=== PATIENT | female | born 2000 | race Caucasian/White ===

== ENCOUNTER 2024-11-16 22:26 | Inpatient (IN) | payer MEDICAID, SELFPAY ==
--- OUTSIDE RECORDS SUMMARY | 2024-11-16 22:12 | XMS RPT_ITS | CCD ---
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 Comment on above: Order Comment: Speci men Type: SWAB Ordering Facility: [facility] Address: [address] [place] [address] Performed By: #### T RVAMP, 20774-7 #### [facility] CLIA [id number] [address] [place] [address] [place] WBC (Bld) [#/Vol] 6.90 10*3/uL Normal 3.70-11.00 [facility] Comment on above: Order Comment: Speci men Type: SWAB Ordering Facility: [facility] Address: [address] [place] [address] Performed By: #### T RVAMP, 79018-6 #### [facility] CLIA [id number] [address] [place] [address] [place] Scott 05-15-2024 CNPN Telephone (OBGYWM) WALTER ANDRADE ([id number]) 2000 F Date Time Provider Department 05/15/24 THEODORA DELUCA OBGYWSpencer During your visit today, we recorded the following information about you: Laurie Bueno RN 05/15/2024 11:56 AM Signed Patient 12w6d, here today for NT ultrasound and is asking for blood work to be added for [id number]. Order pended. ALEXEY Arora Karmon, MD 05/15/2024 11:58 AM Signed Filed Theodora Deluca MD Allergies As of Date: 05/15/2024 (No Known Allergies) Date Reviewed: 04/24/2024 Reviewed by: Dina Sanchez APRN.COOKER SULFITE - Fully Assessed Reason for Visit: Orders [681] Primary Visit Diagnosis:Supervision of high risk , antepartum [O09.90] Other Visit Diagnosis:BMI 40.0-44.9, adult (HCC) [Z68.41] Order(s):[id number] PLUS [SQMAT21] Order #: [id number] FUTURE Prescriptions as of 05/15/2024 - aspirin, enteric coated (ECOTRIN LOW STRENGTH) 81 mg EC tablet Take 1 tablet by mouth once daily. - PNV no.95/ferrous fum/folic ac ( ORAL) Take by mouth. - vit37/iron/folic acid (PRENATA ORAL) Take 1 tablet by mouth once daily. - levothyroxine (LEVO-T) 175 mcg tablet Take 175 mcg by mouth daily before breakfast. - cholecalciferol, vitamin D3, (VITAMIN D3 ORAL) Take 75 mcg by mouth once daily. - Cyanocobalamin (VITAMIN B-12) 2,000 mcg TbER Take 1 tablet by mouth once daily. Problem List As Of Date 05/15/2024 Noted Resolved Hypothyroidism [E03.9] PCOS (polycystic ovarian syndrome) [E28.2] Supervision of high risk , antepartum *04/24/2024 BMI 40.0-44.9, adult (HCC) [Z68.41] 04/24/2024 Anxiety [F41.9] 03/24/2020 High serum testosterone [R79.89] 10/20/2015 Encounter Status:Closed by JENAN HANDY on 05/15/24 Normal [facility] Examination level ultrasound on 05-15-2024 Indication First trimester anatomic survey, Maternal obesity, BMI >40 Impression The patient is referred for a first trimester anatomy scan including nuchal translucency measurement as clinically indicated. - Single, live, intrauterine . - Apison rump length measurement is consistent with the established gestational age. - A qualitative screen of the nuchal translucency and other anatomic structures was unremarkable on incomplete first trimester anatomic assessment. - Not all structural malformations can be detected by ultrasound examination. Maternal Structures: Right Ovary: Size 36 mm x 26 mm x 18 mm Left Ovary: Size 32 mm x 22 mm x 16 mm Recommendations - A standard anatomic survey at 16 weeks can be offered and a detailed exam at 20 weeks is recommended for increased risk. Maternal Assessment Height 163 cm Height (ft) 5 ft Height (in) 4 in Physical Exam Initial weight (lb) 252 lb Initial BMI 43.26 kg/m Method Transabdominal and transvaginal ultrasound examination, 3D ultrasound examination. View: Suboptimal view: limited by maternal body habitus. Suboptimal view: limited by position Davila . Number of fetuses: 1 Dating GA by prior assessment 12 w + 6 d GASPER by prior assessment: 11/21/2024 Ultrasound examination on: 05/15/2024 GA by U/S based upon: CRL GA by U/S 13 w + 3 d GASPER by U/S: 11/17/2024 Assigned: based on ultrasound (CRL), selected on 04/24/2024 Assigned GA 12 w + 6 d Assigned GASPER: 11/21/2024 General Evaluation Cardiac activity present Placenta: anterior Cord vessels: 3 vessel cord Amniotic fluid: normal amount Biometry Standard FHR 167 bpm CRL 73.8 mm 13w 3d 85% [facility]lock First Trimester Anatomy Calvarium: normal Falx cerebri: normal Choroid plexus: normal Profile: suboptimal Nasal bone: suboptimal Retronasal triangle: normal Maxilla: normal Mandible: normal Nuchal translucency: Unremarkable Situs: normal Cardiac position: normal Cardiac axis: normal 4-chamber view: suboptimal 4-chamber view with color: suboptimal 8-[id number]-[id number] view: suboptimal Abdominal cord insertion: normal Stomach: normal Kidneys: visualized Bladder: normal Color doppler of perivesical umbilical arteries: normal Vertebral alignment: normal Arms: normal Hands: normal Legs: normal Feet: normal Maternal Structures Uterus / Cervix Uterus: Visualized Uterus length 143 mm Uterus width 114 mm Uterus height 75 mm Uterus Vol 638.9 cm Ovaries / Tubes / Adnexa Rt ovary: Visualized Rt ovary D1 36 mm Rt ovary D2 26 mm Rt ovary D3 18 mm Rt ovary Vol 8.6 cm Rt ovarian corpus luteum: cystic with fine diffuse internal echoes Lt ovary: Visualized Lt ovary D1 32 mm Lt ovary D2 22 mm Lt ovary D3 16 mm Lt ovary Vol 6.1 cm Performed By: Ximena Montoya RDMS Read By: Sakina Bernstein M.D. MATERNAL MEDICINE [facility] Radiology Study observation (narrative) [facility] HBV surface Ag Ser Qlon 03-0 HBV surface Ag Ql (S) Negative Normal Negative [facility] Comment on above: Order Comment: Speci men Type: SWAB Ordering Facility: [facility] Address: [address] [place] [address] Performed By: #### T AMBREEN, 82990-8 #### [facility] CLIA [id number] [address] [place] [address] [place] HCV Ab Ser Qlon 05-15-2024 HCV Ab Ql (S) Negative Normal Negative [facility] Comment on above: Order Comment: Speci men Type: BLOOD SPECIMENOrdering Facility: [facility] Address: [address] [place] [address] Result Comment: The result suggests no evidence of active infection with Hepatitis C virus. Should recent infection be suspected, repeat testing may be considered 4-6 weeks after this draw. Performed By: #### 1 6128-1 ####[facility] [id number] [place] [address] [place] HIV 1+2 Ab IA Qlon HIV 1 and 2 Ab IA.rapid Nom (S/P/Bld) Normal [facility] Comment on above: Order Comment: Speci men Type: SWAB Ordering Facility: [facility] Address: [address] [place] [address] Result Comment: Test not indicated. Performed By: #### Elmer CROOK, 49731-9 #### [facility] CLIA [id number] [address] [place] [address] [place] HIV 1+2 Ab+HIV1 p24 Ag IA Ql Non-Reactive Normal Nonreactive [facility] Comment on above: Order Comment: Speci men Type: SWAB Ordering Facility: [facility] Address: [address] [place] [address] Performed By: #### T AMBREEN, 97960-3 #### [facility] CLIA [id number] [address] [place] [address] [place] HIV immunoassay testing algorithm interpretation (S/P/Bld) [Interp] Normal [facility] Comment on above: Order Comment: Speci men Type: SWAB Ordering Facility: [facility] Address: [address] [place] [address] Result Comment: No e vidence of HIV-1 or HIV-2 infection. Should recent infection be suspected, repeat testing may be considered 2-3 weeks after this draw. [place] Rev. Code 3701.243(E): This information has been disclosed to you from confidential records protected from disclosure by state law. ???You shall make no further disclosure of this information without the specific, written, and informed release of the individual to whom it pertains or as otherwise permitted by state law. A general authorization for the release of medical or other information is not sufficient for the purpose of the release of HIV test results or diagnoses. Performed By: #### T RVAMP, 11746-7 #### [facility] CLIA [id number] [address] [place], [place] [address] [address] [place] HbA1c (Bld)on 05-15-2024 Average glucose Estimated from glycated hemoglobin (Bld) [Mass/Vol] 94 mg/dL Normal [facility] Comment on above: Order Comment: Speci men Type: BLOOD SPECIMENOrdering Facility: [facility] Address: [address] [place] [address] Result Comment: eAG: (Estimated average glucose) is a calculated value from HgbA1c and is parts representative of the average blood glucose level in the last 2-3 month period. Performed By: #### 5 5454-3 ####[facility] [id number] [place] [address] [place] HbA1c (Bld) [Mass fraction] 4.9 % Normal 4.3-5.6 [facility] Comment on above: Order Comment: Speci men Type: BLOOD SPECIMENOrdering Facility: [facility] Address: [address] [place] [address] Result Comment: Amer [place] Diabetes Association guidelines indicate that patients with HgbA1c in the range 5.7-6.4% are at increased risk for development of diabetes, and intervention by lifestyle modification may be beneficial. HgbA1c greater or equal to 6.5% is considered diagnostic of diabetes. Performed By: #### 5 5454-3 ####[facility] [id number] [place] [address] [place] [id number] PLUSon 05-15-2024 Cell-free DNA./Cell-free DNA.total Dosage of chromosome-specific cfDNA (cfDNA) [Molar fraction] 13% Normal [facility] Comment on above: Order Comment: Speci men Type: SWAB Ordering Facility: [facility] Address: [address] [place] [address] Performed By: #### T RVAMP, 23375-4 #### [facility] CLIA [id number] [address] [place] [address] [place] Chr 13+18+21+X+Y aneuploidy Dosage of chromosome-specific cfDNA Ql (cfDNA) Negative Normal [facility] Comment on above: Order Comment: Speci men Type: SWAB Ordering Facility: [facility] Address: [address] [place] [address] Performed By: #### T RVAMP, 22200-1 #### [facility] CLIA [id number] [address] [place] [address] [place] Chr 21 trisomy Dosage of chromosome-specific cfDNA Ql (cfDNA) Negative Normal [facility] Comment on above: Order Comment: Speci men Type: SWAB Ordering Facility: [facility] Address: [address] [place] [address] Performed By: #### T RVAMP, 25154-2 #### [facility] CLIA [id number] [address] [place] [address] [place] Chr X and Y aneuploidy risk Sequencing Ql (cfDNA) [Interp] Not detected Normal [facility] Comment on above: Order Comment: Speci men Type: SWAB Ordering Facility: [facility] Address: [address] [place] [address] Result Comment: Not Detected Not Detected Performed By: #### T RVAMP, 34335-8 #### [facility] CLIA [id number] [address] [place] [address] [place] Citation Rigoberto (Reference lab test) Comment Normal [facility] Comment on above: Order Comment: Speci men Type: SWAB Ordering Facility: [facility] Address: [address] [place] [address] Result Comment: 1. P cruz ASIF, et al. Eunice Med. 2012;14(3):296-305. 2. Angela IRWIN et al. Prenat Diag. 2013;33(6):591-597. 3. Pavel C, et al. Clin Chem. 2015 Apr;61(4):608-616. 4. Cherie ASIF, et al. Eunice Med. 2011;13(11):913-920. 5. ACOG/SMFM Practice Bulletin No. 226, Dec 2019. Performed By: #### T RVAMP, 12643-8 #### [facility] CLIA [id number] [address] [place] [address] [place] Gestational age Estimated from conception date Davila Normal [facility] Comment on above: Order Comment: Speci men Type: SWAB Ordering Facility: [facility] Address: [address] [place] [address] Performed By: #### T RVAMP, 00677-9 #### [facility] CLIA [id number] [address] [place] [address] [place] GESTATIONALAGE AGE > OR = 9W Yes Normal [facility] Comment on above: Order Comment: Speci men Type: SWAB Ordering Facility: [facility] Address: [address] [place] [address] Performed By: #### T RVAMP, 16492-5 #### [facility] CLIA [id number] [address] [place] [address] [place] Laboratory comment Rigoberto (Report) Comment Normal [facility] Comment on above: Order Comment: Speci men Type: SWAB [facility] [facility] Address: [address] [place] [address] Result Comment: The MaterniT(R) 21 PLUS laboratory-developed test (LDT) analyzes circulating cell-free DNA from a maternal blood sample. This test is used for screening purposes and not diagnostic. Clinical correlation is recommended. Validation data on twin pregnancies is limited and the ability of this test to detect aneuploidy in higher multiple gestations has not yet been validated. Performed By: #### T RVAMP, 03726-1 #### [facility] CLIA [id number] [address] [place] [address] [place] women's ministry director name Nom (Provider) Comment Normal [facility] Comment on above: Order Comment: German bhardwaj Type: SWAB Ordering Facility: [facility] Address: [address] [place] [address] Result Comment: This specimen showed an expected representation of chromosome 21, 18 and 13 material. Clinical correlation is suggested. Comment Tal Jean Baptiste MD, PhD, Director, [email or web address] Performed By: #### T RVAMP, 43559-5 #### [facility] CLIA [id number] [address] [place] [address] [place] LIMITATIONS OF THE TEST Comment Normal [facility] Comment on above: Order Comment: German bhardwaj Type: SWAB Ordering Facility: [facility] Address: [address] [place] [address] Result Comment: Deejay ying the results of these tests are highly reliable, discordant results, including inaccurate sex prediction, may occur due to placental, maternal, or mosaicism or neoplasm; vanishing twin; prior maternal organ transplant; or other causes. These tests are screening tests and not diagnostic; they do not replace the accuracy and precision of diagnosis with CVS or amniocentesis. A patient with a positive test result should be referred for genetic counseling and offered invasive diagnosis for confirmation of test results.[5] The results of this testing, including the benefits and limitations, should be discussed with a qualified healthcare provider. management decisions, including termination of the , should not be based on the results of these tests alone. The healthcare provider is responsible for the use of this information in the management of their patient. Sex chromosomal aneuploidies are not reportable for known multiple gestations. A negative result does not ensure an unaffected nor does it exclude the possibility of other chromosomal abnormalities or defects which are not a part of these tests. An uninformative result may be reported, the causes of which may include, but are not limited to, insufficient sequencing coverage, noise or artifacts in the region, amplification or sequencing bias, or insufficient fraction. These tests are not intended to identify pregnancies at risk for neural tube defects or ventral wall defects. Testing for whole chromosome abnormalities (including sex chromosomes) and for subchromosomal abnormalities could lead to the potential discovery of both and maternal genomic abnormalities that could have major, minor, or no, clinical significance. Evaluating the significance of a positive or a non-reportable result may involve both invasive testing and additional studies on the mother. Such investigations may lead to a diagnosis of maternal chromosomal or subchromosomal abnormalities, which on occasion may be associated with benign or malignant maternal neoplasms. These tests may not accurately identify triploidy, balanced rearrangements, or the precise location of subchromosomal duplications or deletions; these may be detected by diagnosis with CVS or amniocentesis. The ability to report results may be impacted by maternal BMI, maternal weight, maternal systemic lupus erythematosus (SLE) and/or by certain pharmaceutical agents such as low molecular weight heparin (for example: Lovenox(R), Xaparin(R), Clexane(R) and Fragmin(R)). Performed By: #### T RVAMP, 89138-4 #### [facility] CLIA [id number] [address] [place] [address] STATES OF [facility] Monosomy X risk Dosage of chromosome-specific cfDNA Ql (Plasma cell-free+WBC DNA) [Interp] Not detected Normal [facility] Comment on above: Order Comment: Speci men Type: SWAB Ordering Facility: [facility] Address: [address] [place] [address] Performed By: #### T RVAMP, 17639-4 #### [facility] CLIA [id number] [address] [place] [address] [place] NEGATIVE PREDICTIVE VALUE Note Normal [facility] Comment on above: Order Comment: German bhardwaj Type: SWAB Ordering Facility: [facility] Address: [address] [place] [address] Result Comment: The Negative Predictive Value (NPV) for trisomy 21, 18, and 13 is greater than 99%. The NPV for SCA and ESS cannot be calculated as SCA and ESS are only reported when an abnormality is detected. Performed By: #### T RVAMP, 02611-4 #### [facility] CLIA [id number] [address] [place] [address] [id number] PERFORMANCE CHARACTERISTICS Note Normal [facility] Comment on above: Order Comment: German bhardwaj Type: SWAB Ordering Facility: [facility] Address: [address] [place] [address] Result Comment: ! Sex ! Accuracy: 99.4% ! ! ! ! Region (associated syndrome) ! Est. Sens# ! Est. Spec ! ! ! ! Trisomy 21 (Down Syndrome) ! 99.1% ! 99.9% ! ! ! ! Trisomy 18 (Campa Syndrome) ! >99.9% ! 99.6% ! ! ! ! Trisomy 13 (P[place]u Syndrome) ! 91.7% ! 99.7% ! ! ! ! Sex Chromosome Aneuploidies## ! 96.2% ! 99.7% ! ! ! * As reported in [facility] database nstd37 [https://www.ncbi.nlm.nih.gov/dbvar/studies/nstd37/ ] # Estimated Sensitivity. Sensitivity estimated across the observed size distribution of each syndrome [per [facility] database nstd37] and across the range of fractions observed in routine clinical NIPT. Actual sensitivity can also be influenced by other factors such as the size of the event, total sequence counts, amplification bias, or sequence bias. ## Davila gestation only. Performed By: #### T CODIEAMP, 62418-0 #### [facility] CLIA [id number] [address] [place] [address] [place] POSITIVE PREDICTIVE VALUE N/A Normal [facility] Comment on above: Order Comment: Speci men Type: SWAB Ordering Facility: [facility] Address: [address] [place] [address] Performed By: #### T RVAMP, 16848-4 #### [facility] CLIA [id number] [address] [place] [address] [place] Reference Lab Test Method Comment Normal [facility] Comment on above: Order Comment: Speci men Type: SWAB Ordering Facility: [facility] Address: [address] [place] [address] Result Comment: See Notes Circulating cell-free DNA was purified from the plasma component of maternal blood. The extracted DNA was then converted into a genomic DNA library for aneuploidy analysis of chromosomes 21, 18, and 13 via next generation sequencing.[1] Optional findings based on the test order include sex chromosome aneuploidy (SCA)[2], and enhanced sequencing series (ESS)[3], which will only be reported on as an additional finding when an abnormality is detected. SCA testing includes information on X and Y representation, while ESS testing includes deletions in selected regions (22q, 15q, 11q, 8q, 5p, 4p, 1p) and trisomy of chromosomes 16 and 22. Performed By: #### T AMBREEN, 77773-2 #### [facility] CLIA [id number] [address] [place] [address] [place] Service comment (Unsp spec) [Interp] Comment Normal [facility] Comment on above: Order Comment: Speci men Type: SWAB Ordering Facility: [facility] Address: [address] [place] [address] Result Comment: See Notes [employer] is a subsidiary of [employer], using the brand [employer]. This test was developed and its performance characteristics determined by [employer]. It has not been cleared or approved by the Food and Drug Administration. This laboratory is certified under the Clinical Laboratory Improvement Amendments (CLIA) as qualified to perform high complexity clinical laboratory testing and accredited by the College [employer] (CAP). If there is future clinical need for adding MaterniT GENOME testing, this specimen will be available until term. [facility] samples will not be retained beyond 60 days. [facility] patients will have to send a new sample for re-sequencing ([facility] Test Code: [id number]). Performed By: #### T AMBREEN, 87290-0 #### [facility] CLIA [id number] [address] [place] [address] [place] Sex Dosage of chromosome-specific cfDNA Nom (cfDNA) Comment Normal [facility] Comment on above: Order Comment: Speci men Type: SWAB Ordering Facility: [facility] Address: [address] [place] [address] Result Comment: Cons istent with Male Performed By: #### T RVAMP, 18894-2 #### [facility] CLIA [id number] [address] [place] [address] [place] Test performance information Rigoberto (Unsp spec) Comment Normal [facility] Comment on above: Order Comment: Speci men Type: SWAB Ordering Facility: [facility] Address: [address] [place] [address] Result Comment: The performance characteristics of the MaterniT(R) 21 PLUS laboratory-developed test (LDT) have been determined in a clinical validation study with women at increased risk for chromosomal aneuploidy.[1-4] Performed By: #### T RVAMP, 73933-7 #### [facility] CLIA [id number] [address] [place] [address] [place] Trisomy 13 risk Dosage of chromosome-specific cfDNA Ql (cfDNA) [Interp] Negative Normal [facility] Comment on above: Order Comment: Speci men Type: SWAB Ordering Facility: [facility] Address: [address] [place] [address] Performed By: #### T RVAMP, 27128-5 #### [facility] CLIA [id number] [address] [place] [address] [place] Trisomy 18 risk Dosage of chromosome-specific cfDNA Ql (Plasma cell-free+WBC DNA) [Interp] Negative Normal [facility] Comment on above: Order Comment: Speci men Type: SWAB Ordering Facility: [facility] Address: [address] [place] [address] Performed By: #### T RVAMP, 59091-5 #### [facility] CLIA [id number] [address] [place] [address] [place] RUBELLA IGG ANTIBODYon 05-15 RUBELLA IGG AB, QUAL Positive Normal Positive [facility] Comment on above: Order Comment: Speci men Type: BLOOD SPECIMENOrdering Facility: [facility] Address: [address] [place] [address] Result Comment: The result suggests recent or past exposure to Rubella virus or history of Rubella vaccination. Positive result may also be seen due to presence of passively-transferred antibodies. Please correlate with patient's history. Performed By: #### R UBIGG ####[facility] [id number] [place] [address] [place] Reagin and Treponema pallidu m IgG and IgM [Interp]on 05-15-2024 T. pallidum IgG+IgM IA Ql (S) Non-Reactive Normal Nonreactive [facility] Comment on above: Order Comment: Speci men Type: SWAB Ordering Facility: [facility] Address: [address] [place] [address] Performed By: #### T RVAMP, 01503-5 #### [facility] CLIA [id number] [address] [place] [address] [place] Reagin+T pallidum IgG+IgM Se rPl-Impon 05-15-2024 Reagin and Treponema pallidum IgG and IgM [Interp] Cannot exclude recent Treponemal infection if specimen collected within 7-10 days after appearance of suspect lesions or 2-3 weeks after an exposure. Clinical correlation is required. Normal [facility] Comment on above: Order Comment: Speci men Type: SWAB Ordering Facility: [facility] Address: [address] [place] [address] Performed By: #### T RVAMP, 38292-5 #### [facility] CLIA [id number] [address] [place] [address] [place] TSH SerPl-aCncon 05-15-2024 TSH Qn 5.060 m[IU]/L High 0.270-4.200 [facility] Comment on above: Order Comment: Speci men Type: BLOOD SPECIMENOrdering Facility: [facility] Address: [address] [place] [address] Result Comment: If t he patient is , TSH reference range varies by gestational period: First Trimester (weeks 9-12): 0.180-2.990 mIU/L Second Trimester: 0.110-3.980 mIU/L Third Trimester: 0.480-4.710 mIU/L Colby Adame et al. A Practical Approach for the Verifications and Determination of Site- and Trimester-Specific Reference Intervals for Thyroid Function tests in . Thyroid, 2019:29:3:412-420. Ray Ying, et al. 2017 Guidelines of the [place] Thyroid Association for the Diagnosis and Management of Thyroid Disease during and the . Thyroid, 2017:27:3:315-389. Performed By: #### 3 016-3 ####[facility] [id number] [place] [address] [place] TYPE + SCREEN PRENATALon ABO A Normal [facility] Comment on above: Order Comment: Speci men Type: BLOOD SPECIMENOrdering Facility: [facility] Address: [address] [place] [address] Performed By: #### T SPN ####[facility]ANKCLIA [id number] [place] [address] [place] Rh Nom (Bld) Negative Normal [facility] Comment on above: Order Comment: Speci lashae Type: BLOOD SPECIMENOrdering Facility: [facility] Address: [address] [place] [address] Performed By: #### T SPN ####[facility] BANKCLIA [id number] [place] [id number] [place] TYPE AND SCREEN EXPIRATION 05/18/2024 23:59 Normal [facility] Comment on above: Order Comment: Speci men Type: BLOOD SPECIMENOrdering Facility: [facility] Address: [address] [place] [address] Performed By: #### T SPN ####[facility] BLOOD BANKCLIA [id number] [place] [address] [place] Bacteria Ur Culton Bacteria identified Cx Nom (U) ORGANISM ID: 1 10,000 -<50,000 CFU/ml Normal urogenital isamar Streptococcus agalactiae (Group B streptococcus) was identified in this specimen, which is clinically relevant if the individual is . v Normal [facility] Comment on above: Performed By: #### 6 30-4 ####[facility] [id number] [address] [place] C. trachomatis+N. gonorrhoea e DNA VISHNU+probe Ql (Unsp spec)on 04-24-2024 C. trachomatis rRNA VISHNU+probe Ql (Unsp spec) Not detected Normal Not detected [facility] Comment on above: Order Comment: Speci men Type: SWAB Ordering Facility: [facility] Address: [address] [place] [address] Performed By: #### T RVAMP, 40640-2 #### [facility] CLIA [id number] [address] [place] [address] N. gonorrhoeae rRNA VISHNU+probe Ql (Unsp spec) Not detected Normal Not detected [facility] Comment on above: Order Comment: Speci men Type: SWAB Ordering Facility: [facility] Address: [address] [place] [address] Performed By: #### T RVAMP, 35241-8 #### [facility] CLIA [id number] [address] [place] [address] [place] POC MANAGEMENT ACCOUNTS MANAGER ULTRASOUNDon 04-24-19 Indication Confirmation of intrauterine . Confirmation of cardiac activity. Estimation of gestational age Impression cardiac activity is visualized, Uncertain LMP, GASPER 11/21/24 based on today's ultrasound Recommendations Follow up for 1st Trimester Anatomy with Nuchal Translucency as clinically indicated if desired. Method Transvaginal ultrasound examination. View: Adequate visualization Davila . Number of embryos: 1 Dating Ultrasound examination on: 04/24/2024 GA by U/S based upon: CRL GA by U/S 9 w + 6 d GASPER by U/S: 11/21/2024 Assigned: based on ultrasound (CRL), selected on 04/24/2024 Assigned GA 9 w + 6 d Assigned GASPER: 11/21/2024 Biometry Standard FHR 167 bpm CRL 30.0 mm 9w 6d 37% Hadlock Assessment Gestational sac: visualized Location: intrauterine Yolk sac: visualized Embryo: visualized CRL 30.0 mm 9w 6d 37% Hadlock Cardiac activity: present FHR 167 bpm Maternal Structures BMI 42 General Evaluation Cardiac activity present. FHR 167 bpm. movements: present Performed By: Dina Sanchez CNP Read By: Dina Sanchez CNP MATERNAL MEDICINE [facility] Radiology Study observation (narrative) [facility] TRICHOMONAS VAGINALIS NAATon 04-24-2024 T. vaginalis DNA VISHNU+probe Ql (Unsp spec) Not detected Normal Not detected [facility] Comment on above: Order Comment: Speci men Type: SWAB Ordering Facility: [facility] Address: [address] [place] [address] Performed By: #### T RVAMP, 51732-7 #### [facility] CLIA [id number] [address] [place] [address] [place] [address] [place] Telephone Encounteron 2024 [employer] Authentication Interface Message Text See 04/07 mychart encounter regarding this. Normal [facility] [employer] [facility] Telephone Encounteron 2024 Part Maker Authentication Interface Message Text See sep msg Normal [facility] [employer] Telephone Encounteron 2024 Part Maker Authentication Interface Message Text Patient was identified by name and date of . Abigail June RN Called patient and relayed message. Patient states she takes a multivitamin at the same time as the synthroid. Hasn't missed any doses that she knows of. Waits 1.5 to 2 hours to eat after taking the synthroid. She is wondering if taking the multivitamin at the same time as the synthroid could have raised the level. Normal [facility] [employer] Telephone Encounteron 2024 Part Maker Authentication Interface Message Text Attempted to call patient at listed number. Mailbox is full and cannot accept any messages at this time. Normal [facility] [employer] [facility] Telephone Encounteron 2024 Part Maker Authentication Interface Message Text Pt did not access [employer] message/ results/ please call TSH (thryoid function) 8.163 ASSUMING NO MISSED DOSES X 6W THEN -your dose needs to be INCREASED; current levothyroxine (SYNTHROID) 150 MCG new 175 mcg : rx sent ; recheck labs due in 6+ wks Adore Morales MD Written by Adore Morales MD on 03/24/2024 10:57 AM EST Normal [facility] [employer] [facility] Addendum Noteon 03-24-2024 [employer] Authentication Interface Message Text Addended by: ADORE MORALES on: 03/24/2024 10:57 AM Modules accepted: Orders Normal [facility] Progress Noteson 03-24-2024 [employer] Authentication Interface Message Text TSH (thryoid function) 8.163 ASSUMING NO MISSED DOSES X 6W THEN -your dose needs to be INCREASED; current levothyroxine (SYNTHROID) 150 MCG new 175 mcg : rx sent ; recheck labs due in 6+ wks Adore Morales MD Normal [facility] Patient Instructionson 03-23 Part Maker Authentication Interface Message Text Start vitamin Continue to avoid all inhaled produces OB appt soon : ideal around 10-12 wks Flu vaccine given today In 2+ weeks: Strongly recommend NEW Covid booster TSH levels today and recheck once/ trimester ~~Dr Lauro Pena?/ ./? ./ .???*?*???.? ...???.???.???*?*? ??.? ...???.??? Adore Morales MD .???*?*???.? ...???.???.???*?*? ??.? ...???.???.???*?*? ??.? ...???.???.???*?*? ??.? Thank you for your confidence and trust My current schedule : Tuesday and Tuesday [facility] Tuesdayna Tuesday: Telephone and Video virtual appointments: available all day Online and general scheduling will NOT reflect my true availability MESSAGE ME THRU MYCHART IF NEEDED Please plan to get all REFILLS AT APPOINTMENTS TEST RESULTS :I will always send a detailed result note: Thank you for your patience .???*?*???.? ...???.???.???*?*? ??.? ...???.???.???*?*? ??.? ...???.???.???*?*? ??.? ...???.???.???*?*? ??.? ...???.???.???*?*? ??.? ...???.??? Normal [facility] [employer] [facility] Progress Noteson 03-23-2024 Part Maker Authentication Interface Message Text Identity was confirmed by verifying patient name and date of . Blood drawn for patient. Blood obtained from right arm, using 21 gauge butterfly. Patient denies discomfort, bleeding controlled, bandage applied. Site appears normal. During this visit the vaccine(s) was: Administered Provider received consent from patient/parent/patient parts representative for immunization(s) as ordered, questionnaire completed and VIS educational handouts reviewed with patient/parent/patient parts representative who denies contraindications Double identification of patient completed with patient/parent/patient parts representative using name and prior to administration, and patient tolerated immunization(s) administration without incident. Normal [facility] [employer] [facility] Part Maker Authentication Interface Message Text ?/ ???*?*???. Family Medicine /?*?*???.? ...???.???.???*?*? ?? / Adore Morales MD [facility] [address] [facility] [address] Chief Complaint Patient presents with Test Pt states here today to confirm positive home test. ~~~~~~~~~~~~~~~~~~~~~~~ ~~~~~~~~ Visit date: 03/23/24 Assessment and Plan and PATIENT INSTRUCTIONS FROM AVS: No follow-ups on file. Patient Instructions Start vitamin Continue to avoid all inhaled produces OB appt soon : ideal around 10-12 wks Flu vaccine given today In 2+ weeks: Strongly recommend NEW Covid booster TSH levels today and recheck once/ trimester ~~Dr Restrepo .?/ ./? ./ .???*?*???.? ...???.???.???*?*? ??.? ...???.??? Adore Morales MD .???*?*???.? ...???.???.???*?*? ??.? ...???.???.???*?*? ??.? ...???.???.???*?*? ??.? Thank you for your confidence and trust My current schedule : Tuesday and Tuesday [facility] Tuesdayna Tuesday: Telephone and Video virtual appointments: available all day Online and general scheduling will NOT reflect my true availability MESSAGE ME THRU MYCHART IF NEEDED Please plan to get all REFILLS AT APPOINTMENTS TEST RESULTS :I will always send a detailed result note: Thank you for your patience .???*?*???.? ...???.???.???*?*? ??.? ...???.???.???*?*? ??.? ...???.???.???*?*? ??.? ...???.???.???*?*? ??.? ...???.???.???*?*? ??.? ...???.??? Handouts: ~~~~~~~~~~~~~~~~~~~~~~~ ~~~~~~~~~ HPI: Test (Pt states here today to confirm positive home test. ) Vitals: 03/23/24 1051 BP: 131/72 Pulse: 90 Temp: 99.4 ???F (37.4 ???C) SpO2: 100% Recent/ past labs and tests rev'd : see cc below Concerns: + home test BF ok / happy (has 2 kids) BF x 6m / intermittent condoms Concern re finances LMP 02/02 Always irregular 7w today Rare etoh Marij Past daily None x 4d Past vape / nicotine : none now x 4d BP Readings from Last 6 Encounters: 03/23/24 131/72 07/20/23 130/75 07/16/23 130/77 07/12/23 101/68 04/06/23 129/76 01/28/23 114/64 Wt Readings from Last 8 Encounters: 03/23/24 258 lb (117 kg) 07/20/23 244 lb (110.7 kg) 07/11/23 250 lb (113.4 kg) 06/13/23 250 lb (113.4 kg) 04/06/23 241 lb 9.6 oz (109.6 kg) 01/28/23 249 lb (112.9 kg) 08/06/22 260 lb (117.9 kg) 06/23/22 263 lb 9.6 oz (119.6 kg) covid VACCINATED Not fully boosted Last visit: Office Visit on 07/21/2023 in [facility] with Vick Kincaid MD for Hypothyroidism, postsurgical; Postoperative follow-up; Change in voice. Most recent visit with ADORE MORALES was on 07/20/2023 Last OV: reviewed / relevant details noted below Relevant past and current data reviewed/ see chart and relevant data copied below-end of note Epic charting revd/ Care Team updated Patient Care Team: Adore Morales MD as PCP - General (Family Medicine) Vick Kincaid MD as Physician (General Surgery) Current Outpatient Medications on File Prior to Visit Medication Sig Dispense Refill vlgjnnz-uzbvhbtkqosxd-p affeine (Excedrin Extra Strength) 250-250-65 MG TABS tablet Take 2 Tablets by mouth every 6 hours as needed for Pain. Max dose: 8 tabs/24 hours. Do NOT exceed 1g/4h and 4g/day of acetaminophen from all sources. (Patient not taking: Reported on 03/23/2024) 14 Tablet 0 calcium, elemental, (OSCAL,) 500 MG tablet Take 1 Tablet by mouth 3 times daily. (Patient not taking: Reported on 03/23/2024) 90 Tablet 0 acetaminophen (TYLENOL) 500 MG tablet Take 2 Tablets by mouth every 8 hours as needed. 60 Tablet 0 docusate sodium (COLACE) 100 MG capsule Take 1 Capsule by mouth 2 times daily as needed. (Patient not taking: Reported on 03/23/2024) 30 Capsule 0 dyclonine (Sucrets Sore Throat) 2 MG lozenge 1 Lozenge in the mouth every 2 hours as needed. (Patient not taking: Reported on 03/23/2024) 18 Lozenge 0 ibuprofen (MOTRIN) 800 MG tablet Take 1 Tablet by mouth every 8 hours as needed. (Patient not taking: Reported on 03/23/2024) 30 Tablet 0 levothyroxine (SYNTHROID) 150 MCG tablet Take 1 Tablet by mouth daily (30 minutes before breakfast). 90 Tablet 3 Multiple Vitamins-Minerals (Multivitamin Gummies Womens) CHEW (Patient not taking: Reported on 03/23/2024) vitamin D, Cholecalciferol, 25 MCG (1000 UT) TABS tablet Take 3 Tablets by mouth daily. 270 Tablet 4 Cyanocobalamin (B-12) 2500 MCG TABS Take 1 Tablet by mouth daily. 90 Tablet 4 No current facility-administered medications on file prior to visit. Reviewed PMH / FH/ SH Significant for: see HPI Past Medical History: Diagnosis Date ADHD (attention deficit hyperactivity disorder) 2019 Multiple thy (more content not included)... Normal [facility] TSHon 03-23-2024 Interpretation and review of laboratory results Abnormal [facility] TSH Qn 8.163 m[IU]/L High [facility] Comment on above: Referance range for women as applicable: First Trimester: 0. 050 to 3.700 uIU/mL Second Trimester: 0. 310 to 4.350 uIU/mL Third Trimester: 0. 410 to 5.180 uIU/mL [facility] TSH 8.163 uIU/mL High 0.450-5.330 [facility] Comment on above: Result Comment: Refe tasha range for women as applicable: First Trimester: 0. 050 to 3.700 uIU/mL Second Trimester: 0. 310 to 4.350 uIU/mL Third Trimester: 0. 410 to 5.180 uIU/mL Performed By: #### T [facility] #### [facility] [address] [place], [phone] URINE HCG-IN OFFICEon 2024 HCG ( test) Ql (U) Positive Abnormal Negative [facility] Interpretation and review of laboratory results Abnormal [facility] Negative Internal Control Negative Negative [facility] Positive Internal Control Positive Positive [facility] Culture, Throaton 01-11-2024 Culture, Throat ORDER#: [id number] ORDERED BY: KAREN BRYAN SOURCE: Throat Throat COLLECTED: 01/11/24 14:35 ANTIBIOTICS AT JABIER.: RECEIVED : 01/11/24 20:02 Culture, Throat FINAL 01/14/24 08:16 Cult,Throat: Oral ismaar, negative for Group A Strep and other beta Cult,Throat: hemolytic streptococci Performed at [address] [id number] ([phone] Normal [facility] Comment on above: Performed By: #### C XTHR #### [facility] [address] [place] [id number] Laboratory - Chemistry and C hemistry - challengeon 08-29-2023 TSH Qn 2.684 m[IU]/L [facility] Comment on above: Referance range for women as applicable: First Trimester: 0. 050 to 3.700 uIU/mL Second Trimester: 0. 310 to 4.350 uIU/mL Third Trimester: 0. 410 to 5.180 uIU/mL No Panel Informationon 08-28 Interpretation and review of laboratory results Normal [facility] TSHon 08-29-2023 TSH 2.684 uIU/mL Normal 0.450-5.330 [facility] [employer] [facility] Comment on above: Result Comment: Refe tasha range for women as applicable: First Trimester: 0. 050 to 3.700 uIU/mL Second Trimester: 0. 310 to 4.350 uIU/mL Third Trimester: 0. 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 Her serum calcium level on postoperative day 1. Was 9.3 mg/dL. She was discharged home on 500 mg of Oscal 3 times a day. She had a follow-up basic metabolic panel on July 16, 2023 and her serum calcium level was 10.7 mg/dL. She was also started on a replacement dose of levothyroxine 0.15 mg daily. The patient reports that she is noticed change in her voice. She is unable to talk loud and she can not sing. She has no symptoms of hypocalcemia. She reported that she had a bad migraine headache after surgery and went to the emergency department where she received treatment. This has since resolved. On my examination her incision was intact and healing well. The Steri-Strips have been removed. She had no [place]ek sign. My impression is the patient has postsurgical hypothyroidism. Her benign multinodular goiter has been adequately treated. Plan: I recommended that she stop her calcium supplementation. I ordered a follow-up screening serum TSH level for 1 month from now. I will make arrangements for her to see Isamar Lloyd CNP in 3-6 months to reassess the status of her voice. I indicated to the patient that if she has persistent change in her voice, that I will recommend that she see 1 of our ear nose and throat specialists for laryngoscopic exam. Addendum: 08/26/2023 TSH 2.684 Normal [facility] [facility] Patient Instructionson 07-19 Part Maker Authentication Interface Message Text Hpv #3 today Your headaches are improved since ER visit They are likely multifactorial including anesthesia, daily acetaminophen and ibuprofen, stopping vaping and daily marijuana Recommend stopping all ejpy-gil-uqyresl medications Continue to avoid a vaping nicotine: Quit. Recommend avoiding daily marijuana use Alert me if had headaches recur See SENIOR PATROL AGENT as planned ~~Dr Restrepo .?/ ./? ./ .???*?*???.? ...???.???.???*?*? ??.? ...???.??? Adore Morales MD .???*?*???.? ...???.???.???*?*? ??.? ...???.???.???*?*? ??.? ...???.???.???*?*? ??.? Thank you for your confidence and trust My current schedule : Tuesday and Tuesday [facility] Tuesday: Telephone and Video virtual appointments: available all day Online and general scheduling will NOT reflect my true availability MESSAGE ME THRU MYCHART IF NEEDED Please plan to get all REFILLS AT APPOINTMENTS TEST RESULTS :I will always send a detailed result note: Thank you for your patience .???*?*???.? ...???.???.???*?*? ??.? ...???.???.???*?*? ??.? ...???.???.???*?*? ??.? ...???.???.???*?*? ??.? ...???.???.???*?*? ??.? ...???.??? Today the following vaccines were administered: Human Papilloma Virus (HPV). Vaccines may have different side effects and care recommendations. Please refer to the Vaccine Information Sheet(s) (VIS) provided in your preferred language to learn more about the vaccines that were administered today. If you have any problems or questions, please call the [employer] line at [phone]. Normal [facility] Progress Noteson 07-20-2023 Part Maker Authentication Interface Message Text ..?/ Family Medicine ../?*?*???.? ...???.???.???*?*? ?? . / Adore Morales MD [facility] [id number] [facility] [id number] Chief Complaint Patient presents with ER follow-up Patient is here for a ED FU from July 15, for migraines, it was a consistent from when she had her surgery, her headache stopped once she was at the hospital and they gave her a headache cocktail she doesn't have one currently but she feels like one is just waiting to come. ~~~~~~~~~~~~~~~~~~~~~~~ ~~~~~~~~ Visit date: 07/20/23 Assessment and Plan and PATIENT INSTRUCTIONS FROM AVS: Follow up if symptoms worsen or fail to improve. Patient Instructions Hpv #3 today Your headaches are improved since ER visit They are likely multifactorial including anesthesia, daily acetaminophen and ibuprofen, stopping vaping and daily marijuana Recommend stopping all kipy-sse-ymcrdau medications Continue to avoid a vaping nicotine: Quit. Recommend avoiding daily marijuana use Alert me if had headaches recur See SENIOR PATROL AGENT as planned ~~Dr Restrepo .?/ ./? ./ .???*?*???.? ...???.???.???*?*? ??.? ...???.??? Adore Morales MD .???*?*???.? ...???.???.???*?*? ??.? ...???.???.???*?*? ??.? ...???.???.???*?*? ??.? Thank you for your confidence and trust My current schedule : Tuesday and Tuesday [facility] Tuesday: Telephone and Video virtual appointments: available all day Online and general scheduling will NOT reflect my true availability MESSAGE ME THRU MYCHART IF NEEDED Please plan to get all REFILLS AT APPOINTMENTS TEST RESULTS :I will always send a detailed result note: Thank you for your patience .???*?*???.? ...???.???.???*?*? ??.? ...???.???.???*?*? ??.? ...???.???.???*?*? ??.? ...???.???.???*?*? ??.? ...???.???.???*?*? ??.? ...???.??? ~~~~~~~~~~~~~~~~~~~~~~~ ~~~~~~~~~ HPI: ER follow-up (Patient is here for a ED FU from July 15, for migraines, it was a consistent from when she had her surgery, her headache stopped once she was at the hospital and they gave her a headache cocktail she doesn't have one currently but she feels like one is just waiting to come. ) Vitals: 07/20/23 1627 BP: 130/75 Pulse: 111 SpO2: 99% Recent/ past labs and tests rev'd : see cc below Concerns: CM gone Past migraine x 1 2015 Notes if sneezes : some residula Overall CM gone Yesterday had mild recurrence: resolved Since acetaminophen q8hr Ibu q8hrs Taking it routinely since surg No vap : nicotine Also past weed / daily Surg 07/10 Threw out back sev weeks Some LBP since covid VACCINATED not fully boosted Last visit: Nurse Visit on 06/13/2023 in PRE ADMISSION TESTING with Ale Marinelli RN for Pre-op evaluation. Most recent visit with ADORE MORALES was on 08/06/2022 Last OV: reviewed / relevant details noted below Relevant past and current data reviewed/ see chart and relevant data copied below-end of note Epic charting revd/ Care Team updated Patient Care Team: Adore Morales MD as PCP - General (Family Medicine) Vick Kincaid MD as Physician (General Surgery) Kajal Khan RN as Director Of Rehabilitative Services (Care Management) Current Outpatient Medications on File Prior to Visit Medication Sig Dispense Refill uuuxazq-vfoapmhfienyp-l affeine (Excedrin Extra Strength) 250-250-65 MG TABS tablet Take 2 Tablets by mouth every 6 hours as needed for Pain. Max dose: 8 tabs/24 hours. Do NOT exceed 1g/4h and 4g/day of acetaminophen from all sources. 14 Tablet 0 calcium, elemental, (OSCAL,) 500 MG tablet Take 1 Tablet by mouth 3 times daily. 90 Tablet 0 acetaminophen (TYLENOL) 500 MG tablet Take 2 Tablets by mouth every 8 hours as needed. 60 Tablet 0 docusate sodium (COLACE) 100 MG capsule Take 1 Capsule by mouth 2 times daily as needed. 30 Capsule 0 dyclonine (Sucrets Sore Throat) 2 MG lozenge 1 Lozenge in the mouth every 2 hours as needed. 18 Lozenge 0 ibuprofen (MOTRIN) 800 MG tablet Take 1 Tablet by mouth every 8 hours as needed. 30 Tablet 0 levothyroxine (SYNTHROID) 150 MCG tablet Take 1 Tablet by mouth daily (30 minutes before breakfast). 90 Tablet 3 Multiple Vitamins-Minerals (Multivitamin Gummies Womens) CHEW (Patient not taking: Reported on 07/20/2023) vitamin D, Cholecalciferol, 25 MCG (1000 UT) TABS tablet Take 3 Tablets by mouth daily. 270 Tablet 4 Cyanocobalamin (B-12) 2500 MCG TABS Take 1 Tablet by mouth daily. 90 Tablet 4 No current facility-administered medications on file prior to visit. Reviewed PMH / FH/ SH Significant for: see HPI Past Medical History: Diagnosis Date ADHD (attention deficit hyperactivity disorder) 2019 (more content not included)... Normal [facility] [facility] Part Maker Authentication Interface Message Text Identification was verified by patient verbalizing her name and date of . During this visit the vaccine(s) was: Administered Provider received consent from patient/parent/patient parts representative for immunization(s) as ordered, questionnaire completed and VIS educational handouts reviewed with patient/parent/patient parts representative who denies contraindications. Double identification of patient completed with patient/parent/patient parts representative using name and prior to administration, and patient tolerated immunization(s) administration without incident. Normal [facility] [facility] Telephone Encounteron 2023 Part Maker Authentication Interface Message Text Emergency/CDU-Observati on Room Follow Up Call Date and Reason for ED visit: 07/16/23 Headache Patient/Family contact reached: Yes Patient ID by name,address and . ID myself and role of Flame Brazing Machine Operator Medical coverage: [facility] / Plan: [facility] MEDICAID HMO / Product Type: Medicaid HMO Current symptoms or concerns: Pt feeling better today No new symptoms Discharge AVS Instructions Reviewed: Yes Discharge Medications: None Has medication(s) been picked up from the pharmacy? N/a Recommendations for follow up: Pt to follow up with PCP Accepted Flame Brazing Machine Operator's offer to schedule appt.? Yes Follow up Appointments: Future Appointments (next ) Provider Department Center 07/20/2023 4:20 PM (Arrive by 4:10 PM) Adore Morales MD [facility] Medicine [facility] 07/22/2023 9:00 AM Vick Kincaid MD [facility] Surgery [facility] 10/04/2023 10:45 AM Perfecto Cam MD [facility] SENIOR OFFICER [place] Transportation: yes Patient verbalized understanding by repeating instructions correctly and agrees with Plan of Care as discussed above. Referred to Grocery Checker: No Barriers or Concerns:No Dental Care Screening: Have you been to the dentist within the year :NA If no, can I assist with making you an appointment: NA SDOH Reviewed:Yes Letter mailed:No Normal [facility] BASIC METABOLIC PANELon 05-0 Anion gap [Moles/Vol] 15 mmol/L Normal 10-20 [facility] Comment on above: Performed By: #### M G, CH8 #### [facility] [address] [place] [address] [place] [address] Calcium [Mass/Vol] 10.7 mg/dL High 8.6-10.3 [facility] Comment on above: Performed By: #### M G, CH8 #### [facility] [address] [place] [address] [place] [address] Chloride [Moles/Vol] 101 mmol/L Normal 98-107 [facility] Comment on above: Performed By: #### M G, CH8 #### [facility] [address] [place] [address] [place] [address] CO2 [Moles/Vol] 25 mmol/L Normal 21-31 [facility] Comment on above: Performed By: #### Spencer Baker, CH8 #### [facility] [address] [place] [address] [place] [address] Creatinine [Mass/Vol] 0.81 mg/dL Normal 0.60-1.20 [facility] Comment on above: Performed By: #### Spencer Baker, CH8 #### [facility] [address] [place] [address] [place] [address] ESTIMATED GFR (CKD-EPI) 103 mL/min/1.73sqm Normal >=60 [facility] Comment on above: Result Comment: 2020 CKD EPI Equation using Creatinine without Race Comment: Estimated glomerular filtration rate (eGFR) is calculated without a race coefficient. Values should be interpreted in the context of the patient's full clinical presentation. Reference: 1. Amilcar C, Aparna M, Keisha LU, et al.. A Unifying Approach for GFR Estimation: Recommendations of the NKF-ASN Task Force on Reassessing the Inclusion of Race in Diagnosing Kidney Disease. Spanish Journal of Kidney Diseases 2021;79(2):268-88.e1. 2. N Engl J Med 1 Vol. 385 Issue 19 Pages 5813-0736 Performed By: #### M Samuel, CH8 #### [facility] [address] [place] [address] [place] [address] Glucose [Mass/Vol] 122 mg/dL High 74-109 [facility] Comment on above: Performed By: #### M Samuel, CH8 #### [facility] [address] [place] [address] [place] [address] Potassium [Moles/Vol] 4.2 mmol/L Normal 3.5-5.0 [facility] Comment on above: Performed By: #### Spencer Baker, CH8 #### [facility] [address] [place] [address] [place] [address] Sodium [Moles/Vol] 137 mmol/L Normal 136-145 [facility] Comment on above: Performed By: #### Spencer Baker, CH8 #### [facility] [address] [place] [address] [place] [address] Urea nitrogen [Mass/Vol] 13 mg/dL Normal 7-25 [facility] Comment on above: Performed By: #### Spencer Baker, CH8 #### [facility] [address] [place] [address] [place] [address] Basic metabolic 2000 panelOr dered By: Olivia Chinchilla on 07-16-2023 Anion gap [Moles/Vol] 15 mmol/L 10 - 20 [facility] Calcium [Mass/Vol] 10.7 mg/dL High 8.6 - 10. 3 mg/dL [facility] Chloride [Moles/Vol] 101 mmol/L 98 - 10 7 mmol/L [facility] CO2 [Moles/Vol] 25 mmol/L 21 - 31 mmol/L [facility] Creatinine [Mass/Vol] 0.81 mg/dL 0.60 - 1.20 mg/dL [facility] GFR/1.73 sq M.predicted CKD-EPI (S/P/Bld) [Vol rate/Area] 103 - PINF [facility] Comment on above: 2020 CKD EPI Equatio n using Creatinine without Race Comment: Estimated glomerular filtration rate (eGFR) is calculated without a race coefficient. Values should be interpreted in the context of the patient's full clinical presentation. Reference: 1. Amilcar C, Aparna M, Keisha LU, et al.. A Unifying Approach for GFR Estimation: Recommendations of the NKF-ASN Task Force on Reassessing the Inclusion of Race in Diagnosing Kidney Disease. Spanish Journal of Kidney Diseases 2021;79(2):268-88.e1. 2. N Engl J Med 2020 Vol. 385 Issue 19 Pages 6311-4706 Glucose [Mass/Vol] 122 mg/dL High 74 - 109 mg/dL [facility] Interpretation and review of laboratory results Abnormal [facility] Potassium [Moles/Vol] 4.2 mmol/L 3.5 - 5.0 mmol/L [facility] Sodium [Moles/Vol] 137 mmol/L 136 - 145 mmol/L [facility] Urea nitrogen [Mass/Vol] 13 mg/dL 7 - 25 mg/dL [facility] CBC WITH DIFFERENTIALon Basophils (Bld) [#/Vol] 0.00 10*3/uL 0.00 - 0.20 K/uL [facility] Basophils/100 WBC (Bld) 0.4 % NINF - 1.9 % [facility] Eosinophils (Bld) [#/Vol] 0.10 10*3/uL 0.00 - 0.70 K/uL [facility] Eosinophils/100 WBC (Bld) 1.0 % 0.1 - 4.0 % [facility] Erythrocyte distribution width (RBC) [Ratio] 14.0 % 11.5 - 14.5 % [facility] Hematocrit (Bld) [Volume fraction] 42.3 % 36.0 - 46.0 % [facility] Hemoglobin (Bld) [Mass/Vol] 13.9 g/dL 12.0 - 15.0 g/dL [facility] Interpretation and review of laboratory results Abnormal [facility] Lymphocytes (Bld) [#/Vol] 2.90 10*3/uL 1.00 - 4.80 K/uL [facility] Lymphocytes/100 WBC (Bld) 24.8 % 24.0 - 44.0 % [facility] MCH (RBC) [Entitic mass] 28.1 pg 26.0 - 34.0 pg [facility] MCHC (RBC) [Mass/Vol] 32.9 g/dL 32.0 - 35.9 g/dL [facility] MCV (RBC) [Entitic vol] 85 fL 80 - 100 fL [facility] Monocytes (Bld) [#/Vol] 0.70 10*3/uL 0.20 - 1.00 K/uL [facility] Monocytes/100 WBC (Bld) 5.7 % 2.0 - 11.0 % [facility] Neutrophils (Bld) [#/Vol] 7.90 10*3/uL 1.50 - 8.00 K/uL [facility] Neutrophils/100 WBC (Bld) 68.1 % 31.0 - 76.0 % [facility] Nucleated RBC (Bld) [#/Vol] 0.01 10*3/uL [facility] Nucleated RBC/100 WBC (Bld) [Ratio] [facility] Platelet mean volume (Bld) [Entitic vol] 10.1 fL 7.5 - 11.2 fL [facility] Platelets (Bld) [#/Vol] 330 10*3/uL 150 - 400 K/uL [facility] RBC (Bld) [#/Vol] 4.96 10*6/uL [facility] WBC (Bld) [#/Vol] 11.7 10*3/uL High 4.5 - 11.5 K/uL [facility] Basophils (Bld) [#/Vol] 0.00 10*3/uL Normal 0.00-0.20 [facility] Comment on above: Performed By: #### C BCDSAT ####[facility] [id number] [facility] , [id number] Basophils/100 WBC (Bld) 0.4 % Normal <=1.9 T [facility] Comment on above: Performed By: #### C BCDSAT ####[facility] [id number] [facility] [place], [id number] Eosinophils (Bld) [#/Vol] 0.10 10*3/uL Normal 0.00-0.70 [facility] Comment on above: Performed By: #### C BCDSAT ####[facility] [id number] [facility] , [id number] Eosinophils/100 WBC (Bld) 1.0 % Normal 0.1-4.0 [facility] Comment on above: Performed By: #### C BCDSAT ####[facility] [id number] [address] [place], [id number] Erythrocyte distribution width (RBC) [Ratio] 14.0 % Normal 11.5-14.5 [facility] Comment on above: Performed By: #### C BCDSAT ####[facility] [id number] [address] [id number] Hematocrit (Bld) [Volume fraction] 42.3 % Normal 36.0-46.0 [facility] Comment on above: Performed By: #### C BCDSAT ####[facility] [id number] [address] [place], [id number] Hemoglobin (Bld) [Mass/Vol] 13.9 g/dL Normal 12.0-15.0 [facility] Comment on above: Performed By: #### C BCDSAT ####[facility] [id number] [address] [place], [id number] Lymphocytes (Bld) [#/Vol] 2.90 10*3/uL Normal 1.00-4.80 [facility] Comment on above: Performed By: #### C BCDSAT ####[facility] [id number] [address] [place], [id number] Lymphocytes/100 WBC (Bld) 24.8 % Normal 24.0-44.0 [facility] Comment on above: Performed By: #### C BCDSAT ####[facility] [id number] [address] [place], [id number] MCH (RBC) [Entitic mass] 28.1 pg Normal 26.0-34.0 [facility] Comment on above: Performed By: #### C BCDSAT ####[facility] [id number] [address] [place], [id number] MCHC (RBC) [Mass/Vol] 32.9 g/dL Normal 32.0-35.9 [facility] Comment on above: Performed By: #### C BCDSAT ####[facility] [id number] [place], [id number] MCV (RBC) [Entitic vol] 85 fL Normal 80-100 [facility] Comment on above: Performed By: #### C BCDSAT ####[facility] [id number] [place], [id number] Monocytes (Bld) [#/Vol] 0.70 10*3/uL Normal 0.20-1.00 [facility] Comment on above: Performed By: #### C BCDSAT ####[facility] [id number] [place] , [id number] Monocytes/100 WBC (Bld) 5.7 % Normal 2.0-11.0 [facility] Comment on above: Performed By: #### C BCDSAT ####[facility] [id number] [place], [id number] Neutrophils (Bld) [#/Vol] 7.90 10*3/uL Normal 1.50-8.00 [facility] Comment on above: Performed By: #### C BCDSAT ####[facility] [id number] [place], [id number] Neutrophils/100 WBC (Bld) 68.1 % Normal 31.0-76.0 [facility] Comment on above: Performed By: #### C BCDSAT ####[facility] [id number] [place] [place], [id number] Nucleated RBC (Bld) [#/Vol] 10*3/uL Normal [facility] Comment on above: Performed By: #### C BCDSAT ####[facility] [id number] [address] [place], [id number] Nucleated RBC (Bld) [#/Vol] 0.01 10*3/uL Normal [facility] Comment on above: Performed By: #### C BCDSAT ####[facility] [id number] [place], [id number] Platelet mean volume (Bld) [Entitic vol] 10.1 fL Normal 7.5-11.2 [facility] Comment on above: Performed By: #### C BCDSAT ####[facility] [id number] [place] , [id number] Platelets (Bld) [#/Vol] 330 10*3/uL Normal 150-400 [facility] [employer] [facility] Comment on above: Performed By: #### C BCDSAT ####[facility] [id number] [id number] RBC (Bld) [#/Vol] 4.96 10*6/uL Normal 4.00-5.20 [facility] [employer] [facility] Comment on above: Performed By: #### C BCDSAT ####[facility] [id number] [place] , [id number] WBC (Bld) [#/Vol] 11.7 10*3/uL High 4.5-11.5 [facility] [facility] Comment on above: Performed By: #### C BCDSAT ####[facility] [id number] [place] , [id number] ED Provider Noteson 07-16-19 Part Maker Authentication Interface Message Text EMERGENCY DEPARTMENT - VISIT NOTE ------- HISTORY OF PRESENT ILLNESS --- Chief Complaint Patient presents with Headache Pt presents to ed with migraine since Tuesday since surgery (thyroidectomy). Pt recv'd Excedrin but no intermediate relief. -vision changes, +photosensitive, -n/v/d, -fever, cills Rn Integrated: not needed - patient preferred language is Polish. 23-year-old female presenting to the emergency room for evaluation of headache. Patient states that she had a thyroidectomy on July 11, 2023 and has had a mild headache since. Patient states headache is on the right side. She endorses photophobia with this. No nausea or vomiting. No fever. No neck pain. No pain with movement. No blurred vision or double vision. No numbness or tingling to upper or lower extremities. No speech difficulty. She was seen in [facility] and was treated with Excedrin however was advised to return in the emergency room if CM did not improve. Denies that this is the worse headache of her life. Denies thunderclap onset. Reports that pain right now is 4/10. Excedrin migraine does help the pain however does not resolve completely. Denieshistory of migraines. 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 HENT: Negative for congestion and sore throat. Eyes: Negative for discharge and itching. Respiratory: Negative for cough and shortness of breath. Cardiovascular: Negative for chest pain. Genitourinary: Negative for dysuria, hematuria and urgency. Musculoskeletal: Negative for back pain. Skin: Negative for rash. Allergic/Immunologic: Negative for environmental allergies. Neurological: Positive for headaches. Negative for dizziness, light-headedness and numbness. Hematological: Negative for adenopathy. Psychiatric/Behavioral: Negative for behavioral problems and confusion. PAST HISTORY Pertinent Past History: Past Medical History: Diagnosis Date ADHD (attention deficit hyperactivity disorder) 2019 Multiple thyroid nodules 10/10/2022 US 09/2022 Several nodules One : FNA recommended US : repeat in 1 yr PCOS (polycystic ovarian syndrome) Vitamin B 12 deficiency 08/06/2022 Vitamin D deficiency 08/06/2022 Patient Active Problem List: History of Papanicolaou smear of cervix [Z92.89] Vitamin B 12 deficiency [E53.8] Vitamin D deficiency [E55.9] Multiple thyroid nodules [E04.2] Anxiety [F41.9] Current moderate episode of major depressive disorder without prior episode (HCC) [F32.1] High serum testosterone [R79.89] Hyperpigmented skin lesion [L81.9] Migraine with aura [G43.109] PCOS (polycystic ovarian syndrome) [E28.2] Transient neurological symptoms [R29.818] Pertinent Social History: Social History Tobacco Use Smoking status: Former Current packs/day: 0.10 Average packs/day: 0.1 packs/day for 1.5 years (0.2 ttl pk-yrs) Types: E-cigarette, Cigarettes Smokeless tobacco: Current Tobacco comments: THC , Nicotine vape Substance Use Topics Alcohol use: Yes Comment: Social/Special Occasion Drinker Drug use: Yes Frequency: 7.0 times per week Types: Marijuana/THC Comment: THC almost daily PHYSICAL EXAM BP 130/77 Pulse 78 Temp 98.1 ???F (36.7 ???C) (Oral) Resp 16 LMP 06/07/2023 SpO2 97% Physical Exam Vitals and nursing note reviewed. Constitutional: Appearance: Normal appearance. Comments: A AND OX3, well appearing on exam. HENT: Head: Normocephalic and atraumatic. Nose: Nose normal. Mouth/Throat: Mouth: Mucous membranes are moist. Pharynx: Oropharynx is clear. Eyes: Extraocular Movements: Extraocular movements intact. Pupils: Pupils are equal, round, and reactive to light. Neck: Comments: Neck is supple. Full range of motion without difficulty. No nuchal rigidity. No edema, erythema or ecchymosis. Cardiovascular: Rate and Rhythm: Normal rate and regular rhythm. Pulses: Normal pulses. Heart sounds: Normal heart sounds. Pulmonary: Effort: Pulmonary effort is normal. Breath sounds: Normal breath sounds. Abdominal: Palpations: Abdomen is soft. Musculoskeletal: General: Normal range of motion. Cervical back: Normal range of motion and neck supple. Skin: General: Skin is warm and dry. Neurological: General: No focal deficit present. Mental Status: She is alert and oriented to person, place, and time. Comments: A AND O x3. Pupils equal round and reactive to light. No abnormal extraocular eye movement. No nystagmus. No facial droop or facial asymmetry. No speech difficulty. 5/5 strength all extremities Sensation intact t (more content not included)... Normal [facility] [employer] [facility] MAGNESIUMon 07-16-2023 Interpretation and review of laboratory results Normal [facility] Magnesium [Mass/Vol] 1.9 mg/dL 1.9 - 2 .7 mg/dL [facility] [Mass/Vol] 1.9 mg/dL Normal 1.9-2.7 [facility] [employer] [facility] Comment on above: Performed By: #### M JERRICA Baker #### [facility] [address] [place] [address] [place] [address] Telephone Encounteron 2023 Part Maker Authentication Interface Message Text Situation: Caller states is still having a bad headache since surgery. States was told by her doctor if she still has a headache on Tuesday she needs to go to ED but she didn't go, was given medication but it didn't help her. Background: Caller is Post Op Pt; had surgery on 07/11/2023, had Thyroidectomy, total with resection left substernal nodule, cervical approach. Assessment: Offered triage; caller declined. Recommendation: Told caller that she needs to go to ED for evaluation and treatment now. Caller states will go to [facility] ED. Stressed importance of getting medical attention as advised. Information sent to Surgeon and clinical pool as update. Thank you. Dina Bradley, RN, RN Normal [facility] [employer] [facility] Patient Instructionson 07-13 Part Maker Authentication Interface Message Text Acute nonintractable headache -Will treat with Excedrin initially. -If symptoms worsen or develops any alarming symptoms such as vision changes, stiff neck, uncontrolled vomiting, uncontrolled fever, lethargy, new neurological symptoms- call 911 or go to your nearest ER immediately. -Follow-up with PCP for re-evaluation/blood work if not recently completed. -If symptoms become chronic, follow-up with neurology for further evaluation. Acute cough -Recommend increased fluid intake. -May add humidifier in bedroom as needed. -Recommend warm salt water gargles for throat, throat lozenges, warm tea with honey as needed. -Go to ER for any persistent or worsening symptoms. Normal [facility] [employer] [facility] Progress Noteson 07-14-2023 Part Maker Authentication Interface Message Text [facility] Virtual Provider Note Documentation: Mode: Video Consent: This visit was initiated by the patient. Audio and visual communication was utilized in real-time. I confirmed understanding of risks and benefits of telehealth visits and obtained consent to proceed with the telemedicine visit. Location of Patient: Home of patient Time-Based Billing Justifications: Charting in Epic Patient visit (including performing a medically appropriate exam) Obtaining history (or reviewing separately obtained history) Subjective History provided by: Patient Headache Associated symptoms include coughing and a sore throat. Pertinent negatives include no abdominal pain, blurred vision, dizziness, eye pain, fever, nausea, vomiting or weakness. Walter Andrade is a 23 year old year old female with a PMH of PCOS and multiple thyroid nodules s/p total thyroidectomy on 07/11/2023 who presents with an intermittent migraine headache since 07/11/2023. States headache has been persistent for the past 24 hours. Has tried Tylenol/Motrin with minimal relief. Pt also admits to an intermittent productive cough with a pinpoint amount of blood in her sputum. Admits to a sore throat and nasal congestion as well. States she was in the hospital for approximately 29 hours all together. Denies fevers/chills/chest pain/SOB/dizziness/visi on changes/abdominal pain/nausea/vomiting/ch est pain/SOB/recent travel/recent injury/hx of blood clotting disorders//can cer/current tobacco use. Review of Systems Constitutional: Negative for chills and fever. HENT: Positive for congestion and sore throat. Eyes: Negative for blurred vision and pain. Respiratory: Positive for cough and sputum production. Negative for shortness of breath and wheezing. Cardiovascular: Negative for chest pain. Gastrointestinal: Negative for abdominal pain, nausea and vomiting. Neurological: Positive for headaches. Negative for dizziness, sensory change, speech change, loss of consciousness and weakness. Objective EXAM PERFORMED VIA VIDEO VISIT Physical Exam Constitutional: General: She is not in acute distress. Appearance: Normal appearance. She is not toxic-appearing. HENT: Head: Normocephalic and atraumatic. Mouth/Throat: Pharynx: Oropharynx is clear. Posterior oropharyngeal erythema present. Eyes: General: Vision grossly intact. Extraocular Movements: Extraocular movements intact. Conjunctiva/sclera: Conjunctivae normal. Neck: Comments: Linear scar on anterior aspect of neck with multiple steri strips in place. Pulmonary: Effort: Pulmonary effort is normal. No respiratory distress. Neurological: Mental Status: She is alert and oriented to person, place, and time. Mental status is at baseline. Cranial Nerves: No cranial nerve deficit, dysarthria or facial asymmetry. Sensory: Sensation is intact. Psychiatric: Mood and Affect: Mood normal. Behavior: Behavior normal. Review of patient's past medical history indicates: Multiple thyroid nodules (10/10/2022) US 09/2022 Several nodules One : FNA recommended US : repeat in 1 yr Vitamin B 12 deficiency (08/06/2022) Vitamin D deficiency (08/06/2022) PCOS (polycystic ovarian syndrome) ADHD (attention deficit hyperactivity disorder) (2019) Review of patient's past surgical history indicates: THYROIDECTOMY, TOTAL (07/11/2023) Procedure: THYROIDECTOMY, TOTAL WITH RESECTION LEFT SUBSTERNAL NODULE, CERVICAL APPROACH; Surgeon: Vick Kincaid MD; Location: PERIOPERATIVE SERVICES; Service: General Current Outpatient Medications Medication Sig Dispense Refill fmpqmtd-mghtpjpbfiwmk-e affeine (Excedrin Extra Strength) 250-250-65 MG TABS tablet Take 2 Tablets by mouth every 6 hours as needed for Pain. Max dose: 8 tabs/24 hours. Do NOT exceed 1g/4h and 4g/day of acetaminophen from all sources. 14 Tablet 0 calcium, elemental, (OSCAL,) 500 MG tablet Take 1 Tablet by mouth 3 times daily. 90 Tablet 0 acetaminophen (TYLENOL) 500 MG tablet Take 2 Tablets by mouth every 8 hours as needed. 60 Tablet 0 docusate sodium (COLACE) 100 MG capsule Take 1 Capsule by mouth 2 times daily as needed. 30 Capsule 0 dyclonine (Sucrets Sore Throat) 2 MG lozenge 1 Lozenge in the mouth every 2 hours as needed. 18 Lozenge 0 ibuprofen (MOTRIN) 800 MG tablet Take 1 Tablet by mouth every 8 hours as needed. 30 Tablet 0 levothyroxine (SYNTHROID) 150 MCG tablet Take 1 Tablet by mouth daily (30 minutes before breakfast). 90 Tablet 3 Multiple Vitamins-Minerals (Multivitamin Gummies Womens) CHEW vitamin D, Cholecalciferol, 25 MCG (1000 UT) TABS tablet Take 3 Tablets by mouth daily. 270 Tablet 4 Cyanocobalamin (B-12) 2500 MCG TABS Take 1 Tablet by mouth daily. 90 Tablet 4 No current facility-administered medications for this visit. Assessment/Plan: Walter was seen today for headache. Diagnoses and all orders for this visit: Acute nonintractable headache, u (more content not included)... Normal [facility] [employer] [facility] Telephone Encounteron 2023 Part Maker Authentication Interface Message Text NB ~~thank you ~~K Normal [facility] [employer] [facility] Part Maker Authentication Interface Message Text I spoke to patient who reports new headache since surgery. She has no prior history of headaches. She is other asymptomatic and recovering as expected. She had tried tylenol and motrin with little relief. She we prescribed Excedrin today but has not tried it yet. I advised she try the excedrin as prescribed and if it is not effective to follow up with her PCP or in the ED if her symptoms worsen. I indicated this is likely not related to surgery. Normal [facility] [employer] [facility] Part Maker Authentication Interface Message Text Situation: Headache post thyroidectomy Background: Sx 07/10 Dr Kincaid headache started then, worse in the last 2 days Assessment: See triage below. Worse with bending over, felt clicking in nose yesterday. Does not drink very much caffeine. Has been taking ibuprofen and acetaminophen postop but has not been helping. Recommendation: Advised to be seen within 24 hours, EC hours/locations provided, scheduled video visit per patient request. Routing to Dr Kincaid as FYI since patient is postop. Read care advice to patient/caregiver. Patient/caregiver verbalizes understanding and agreed to plan of care. Last visit with PCP (ADORE MORALES) was 06/28/2023 Reason for Disposition [1] MODERATE headache (e.g., interferes with normal activities) AND [2] present > 24 hours AND [3] unexplained (Exceptions: analgesics not tried, typical migraine, or headache part of viral illness) [1] Caller has NON-URGENT question AND [2] triager unable to answer question Answer Assessment - Initial Assessment Questions 1. LOCATION: Where does it hurt? Right side of head by jew 2. ONSET: When did the headache start? (Minutes, hours or days) Day of Surgery 07/10 3. PATTERN: Does the pain come and go, or has it been constant since it started? Was come/going, but has been constant x 2 days 4. SEVERITY: How bad is the pain? and What does it keep you from doing? (e.g., Scale 1-10; mild, moderate, or severe) - MILD (1-3): doesn't interfere with normal activities - MODERATE (4-7): interferes with normal activities or awakens from sleep - SEVERE (8-10): excruciating pain, unable to do any normal activities 08/21 5. RECURRENT SYMPTOM: Have you ever had headaches before? If Yes, ask: When was the last time? and What happened that time? Denies 6. CAUSE: What do you think is causing the headache? Uncertain, worse with bending over 7. MIGRAINE: Have you been diagnosed with migraine headaches? If Yes, ask: Is this headache similar? Denies 8. HEAD INJURY: Has there been any recent injury to the head? Denies 9. OTHER SYMPTOMS: Do you have any other symptoms? (fever, stiff neck, eye pain, sore throat, cold symptoms) Sore throat - states likely r/t intubation 10. : Is there any chance you are ? When was your last menstrual period? Denies Protocols used: Pfcsisde-A-SR, Post-Op Symptoms and Tugvyvpvx-V-US Normal [facility] [employer] [facility] CALCIUMon 07-12-2023 Calcium [Mass/Vol] 9.3 mg/dL 8.6 - 10. 3 mg/dL [facility] Calcium [Mass/Vol] 9.3 mg/dL Normal 8.6-10.3 [facility] [employer] [facility] Comment on above: Performed By: #### C A MG #### [facility] [address] [place] [address], [phone] Care Plan Noteon 07-12-2023 Part Maker Authentication Interface Message Text Problem: Routine Care: Goal: Patient care will be managed and maintained throughout hospital stay per unit specific routine care procedure Outcome: Progressing Problem: Impaired Skin Integrity: Goal: Acheive wound healing without signs and symptoms of infection Outcome: Progressing Goal: Skin integrity will improve and/or be maintained Outcome: Progressing Problem: Risk for Infection: Goal: Risk for infection will be reduced Outcome: Progressing Problem: Alteration in Respiratory Status: Goal: Achieve Optimal Respiratory Status with Minimal Ventilatory/Oxygen Support Outcome: Progressing Goal: Ability to maintain a clear airway will improve Outcome: Progressing Problem: Fluid and Electrolyte Imbalance: Goal: Adequate fluid and electrolyte balance will be achieved and maintained Outcome: Progressing Goal: Will show no signs and symptoms of excessive bleeding Outcome: Progressing Goal: Will remain free of signs and symptoms of fluid loss/inadequate intake Outcome: Progressing Goal: Control of fluid volume excess will improve Outcome: Progressing Problem: Activity Intolerance: Goal: Will be free of DVT Outcome: Progressing Problem: VTE Prophylaxis: Goal: Will be free of DVT Outcome: Progressing Problem: Acute Pain: Goal: Ability to identify pain intensity on a pain scale and rate it consistently will be achieved and maintained Outcome: Progressing Goal: Understanding of proper administration and use of medicines will be achieved Outcome: Progressing Goal: Ability to identify factors that manage or decrease pain will be achieved Outcome: Progressing Problem: Safety: Goal: Patient will remain free of falls during hospital stay Outcome: Progressing Goal: Free from injury during hospitalization Outcome: Progressing Problem: Discharge Planning: Goal: Discharge needs of the adult patient will be met Outcome: Progressing Normal [facility] [employer] [facility] MAGNESIUMon 07-12-2023 Magnesium [Mass/Vol] 2.0 mg/dL 1.9 - 2 .7 mg/dL [facility] Magnesium [Mass/Vol] 2.0 mg/dL Normal 1.9-2.7 [facility] [employer] [facility] Comment on above: Performed By: #### C A, MG ####[facility] [id number] [place], [phone] No Panel Informationon 07-11 Interpretation and review of laboratory results Normal [facility] Progress Noteson 07-12-2023 Part Maker Authentication Interface Message Text SW/CM has reviewed patient's chart and assessed that there are no discharge planning needs at this time. The following was reviewed to determine no SW/CM needs warranted. 1). PT/OT evaluations indicate pt can DC home with no needs or PT/OT evaluations are not warranted. 2). No wound care or IV Antibiotics indicated at this time. 3). No SW/CM consults placed through nursing admission screen 4). Pt does not meet the criteria of being a Medicare recipient that has a high or rising readmission rate. Patient will continue to be discussed in multi-disciplinary rounds and monitored daily. If any of the the above changes, SW/CM will complete appropriate assessments and interventions. Razia Alvarado RN BSN Inpatient Business Development Representative Tuesday/Tuesday 8:00/ 4:30 Normal [facility] Anesthesia Postprocedure Richa luationon 07-11-2023 Part Maker Authentication Interface Message Text Anesthesia Postoperative Assessment: Vital Signs (most recent): BP 146/86 (BP Location: right arm) Pulse 105 Temp 36.9 ???C (98.5 ???F) (Oral) Resp 20 Ht 5' 4 (1.626 m) Wt 250 lb (113.4 kg) LMP 06/07/2023 SpO2 92% BMI 42.91 kg/m??? Anesthesia Post Evaluation Level of consciousness: awake Post-procedure exam normal. Body temperature, hydration status, PONV and pain evaluated and addressed. Pain management: adequate Hydration status: normal PONV:No nausea/vomiting reported Cardiopulmonary status stable Respiratory status: acceptable Cardiovascular status: acceptable ANESTHESIA NOTABLE EVENTS: No notable events documented. 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 Physical Exam Airway Mallampati: I TM distance: Adequate Micrognathia: Not present Jaw opening: Adequate Neck flexion: Adequate Dental PE (+) intact Pulmonary Cardiovascular Neuro Plan Anesthesia plan: general; (ETT) Anesthesia risks / alternatives discussed pre-op Questions answered / anesthesia plan accepted Past medical history, surgical history, allergies, and medications reviewed. Pertinent laboratory tests, EKG, imaging, and consults reviewed and I have personally seen and evaluated the patient, repeating zaragoza portions of the history and physical examination. Attestation: Anesthesia options were discussed with the patient and/or legal parts representative. The risks, benefits and alternatives were reviewed. Questions regarding anesthesia were answered. Patient and/or legal parts representative knows such anesthetics and procedures may be performed by Resident physicians, Certified Anesthesiologist Assistants, or Certified Nurse Anesthetists under the supervision of a physician. The patient /or the patient's legal parts representative agree with the plan for anesthesia. [facility] Normal [facility] Anesthesia Transfer Of Careo n 07-11-2023 Part Maker Authentication Interface Message Text Patient taken to PACU. Patient was awake, comfortable, and stable on arrival. Anesthesia Transfer of Care Note Past Medical History: Past Medical History: Diagnosis Date ADHD (attention deficit hyperactivity disorder) 2019 Multiple thyroid nodules 10/10/2022 US 09/2022 Several nodules One : FNA recommended US : repeat in 1 yr PCOS (polycystic ovarian syndrome) Vitamin B 12 deficiency 08/06/2022 Vitamin D deficiency 08/06/2022 Sleep Apnea/Positive STOP-BANG: No Problem List: Patient Active Problem List: History of Papanicolaou smear of cervix [Z92.89] Vitamin B 12 deficiency [E53.8] Vitamin D deficiency [E55.9] Multiple thyroid nodules [E04.2] Past Surgical History: There is no previous surgical history on file. Allergies: Patient has no known allergies. Basic Operating Room Facts: Surgeon(s): Vick Kincaid MD Anesthesiologist: Annia Zhao MD CAA: Soila Dunn CAA Anesthesia Student: Dory Trinidad THYROIDECTOMY, TOTAL WITH RESECTION LEFT SUBSTERNAL NODULE, CERVICAL APPROACH (Neck) Intraoperative Events: No acute event ASA: 3 EBL: 25 mL Urine Not documented Lactated Ringers and NaCl 0.9%: Fluid Totals (Filter: LR and NaCl 0.9% Medications Shown) Medication Calculated Total Lactated Ringers 1,000 mL / 1 bag Lactated Ringers 600 mL / 1 bag Cell Saver: Not documented Blood Volume Values: Blood Products None MTP Blood: MTP PRBC: Not documented MTP FFP: Not documented MTP PLT: Not documented MTP Cryo: Not documented MTP Whole Blood: Not documented Current Vasoactive Medications: {Vasoactive Medications: None Lines, Drains, Airways Peripheral IV Access: 07/11/23719 20 gauge Right Forearm (Active) Site Assessment [facility] 07/11/23735 Infusion Status Port #1 Infusing;Patent 07/11/23735 Peripheral IV Access: 07/11/23752 20 gauge Left Forearm (Active) Site Assessment [facility] 07/11/23752 Infusion Status Port #1 Patent;Infusing 07/11/23752 Airway Insertion Details [REMOVED] Advanced Airway: Cuffed;NIM tube #7 (Removed) 07/11/23740 Pre-Oxygenation/ Induction: Mask Rapid Sequence Induction?: Mask Ventilation: Easy;w/oral airway Blade Type: Blade Size: 3 Visualization: Grade 1 Airway Type: Cuffed;NIM tube Airway Size: #7 Post Insertion Assessment: Confirmation: Equal bilateral breath sounds, CO2 confirmed # Attempts >1: Special Equipment: Glidescope Present on Admission?: Previously Removed / Not Present: Removal Reason: Not Removed at Discharge: Removed 07/11/23 1019 Location (cm) 21 07/11/23 07 Measured from: Lips 07/11/23740 Site Assessment [facility] 07/11/23 07 All non-working IVs have been removed: N/A Laboratory Data: CBC (last 3 years, up to 5 values) WBC RBC Hgb Hct MCV RDW Plt 06/21/23 1002 8.5 4.56 13.0 38.9 85 14.1 255 06/23/22 1425 8.2 4.64 13.5 39.8 86 14.2 276 Basic Metabolic Panel Na K Cl CO2 Gap Glu BUN Cr Ca 06/21/23 1002 140 4.0 104 26 14 90 15 0.71 10.3 06/23/22 1425 139 4.3 102 25 16 81 10 0.65 9.7 Basic Metabolic Panel None No results found for: INR No result for BNP LFT's (last 3 years, up to 5 values) T Prot Albumin D Bili T Bili Alk Phos ALT AST 06/21/23 1002 6.9 4.3 0.05 0.3 76 14 13 06/23/22 1425 7.3 4.4 0.10 0.5 80 27 19 Arterial Blood Gases None Hand off Completed: Yes 1. The patient was identified. 2. Pertinent medical history was relayed. 3. A brief discussion was had about any pertinent surgical/ procedural issues. 4. Intraoperative/ anesthetic management issue and concerns were discussed. 5. Plans for the early post-operative period relayed. 6. An opportunity for questions and acknowledgment of understanding of the report was received. DRU [place] Normal [employer] Blood Attestationon 07-11-19 Part Maker Authentication Interface Message Text Blood Attestation: ATTESTATION OF INFORMED CONSENT FOR BLOOD: The transfusion of blood and/or blood components were discussed with the patient and/or legal parts representative. The risks, benefits and alternatives were reviewed. Questions regarding blood transfusions were answered. The patient /or the patient's legal parts representative agree with the plan for transfusion of blood and/or blood components. 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, cervical approach Surgeon(s): Surgeon(s): Vick Kincaid MD Staff: Scrub: Magaly Pollack CST; Genaro Rodriguez CST Print Shop Assistant Nurse: Chris Doran Physician [employer] Marketing Manager: Ninfa Prescott PA-C Ems Director: Devin Ortega MD Anesthesia: General Anesthesiologist: Annia Zhao MD CAA: Soila Dunn CAA Anesthesia Student: Dory Trinidad Specimen(s): ID Type Source Tests Collected by Time Destination 1 : lymph nodes central compartment neck Tissue Lymph node SPECIMEN FOR SURGICAL PATH Vick Kincaid MD 07/11/2023 0932 2 : entire thyroid gland Tissue Thyroid SPECIMEN FOR SURGICAL PATH Vick Kincaid MD 07/11/2023 0948 Estimated Blood Loss: 25cc Lines/Drains: Peripheral IV Access: 07/11/2320 20 gauge Right Forearm (Active) Site Assessment WNL 07/11/23 0736 Infusion Status Port #1 Infusing;Patent 07/11/2336 Peripheral IV Access: 07/11/23 0753 20 gauge Left Forearm (Active) Site Assessment WNL 07/11/23 0753 Infusion Status Port #1 Patent;Infusing 07/11/23752 Temporarily Retained Foreign Object: No Findings: Left sided nodule measuring 3.5cm x 2cm x 2.3cm. Weight of total thyroid 22g. There was a loss of the auditory signal in the right sided recurrent laryngeal nerve at completion of case. The nerve was visually intact. The left RLN was functioning. Complications: None Status at end of surgery: Stable Activity: No heavy lifting or strenuous activity for 4-6 weeks. Surgical wound class: Yes, wound was clean. Patient Class: Planned Extended Recovery. Is this a patient scheduled as an outpatient that needs to be admitted as an inpatient? No Dr. Kincaid was present in the OR for the critical portion of the procedure and procedure sign-out. Signed by Ninfa Prescott PA-C 07/11/2023 10:35 AM Normal [employer] Care Plan Noteon 07-11-2023 Part Maker Authentication Interface Message Text Problem: Routine Care: Goal: Patient care will be managed and maintained throughout hospital stay per unit specific routine care procedure Outcome: Progressing Problem: Impaired Skin Integrity: Goal: Acheive wound healing without signs and symptoms of infection Outcome: Progressing Goal: Skin integrity will improve and/or be maintained Outcome: Progressing Problem: Risk for Infection: Goal: Risk for infection will be reduced Outcome: Progressing Problem: Alteration in Respiratory Status: Goal: Achieve Optimal Respiratory Status with Minimal Ventilatory/Oxygen Support Outcome: Progressing Goal: Ability to maintain a clear airway will improve Outcome: Progressing Problem: Fluid and Electrolyte Imbalance: Goal: Adequate fluid and electrolyte balance will be achieved and maintained Outcome: Progressing Goal: Will show no signs and symptoms of excessive bleeding Outcome: Progressing Goal: Will remain free of signs and symptoms of fluid loss/inadequate intake Outcome: Progressing Goal: Control of fluid volume excess will improve Outcome: Progressing Problem: Activity Intolerance: Goal: Will be free of DVT Outcome: Progressing Problem: VTE Prophylaxis: Goal: Will be free of DVT Outcome: Progressing Problem: Acute Pain: Goal: Ability to identify pain intensity on a pain scale and rate it consistently will be achieved and maintained Outcome: Progressing Goal: Understanding of proper administration and use of medicines will be achieved Outcome: Progressing Goal: Ability to identify factors that manage or decrease pain will be achieved Outcome: Progressing Problem: Safety: Goal: Patient will remain free of falls during hospital stay Outcome: Progressing Goal: Free from injury during hospitalization Outcome: Progressing Problem: Discharge Planning: Goal: Discharge needs of the adult patient will be met Outcome: Progressing Normal [employer] Part Maker Authentication Interface Message Text Problem: Routine Care: Goal: Patient care will be managed and maintained throughout hospital stay per unit specific routine care procedure Outcome: Progressing Problem: Impaired Skin Integrity: Goal: Acheive wound healing without signs and symptoms of infection Outcome: Progressing Goal: Skin integrity will improve and/or be maintained Outcome: Progressing Problem: Risk for Infection: Goal: Risk for infection will be reduced Outcome: Progressing Problem: Alteration in Respiratory Status: Goal: Achieve Optimal Respiratory Status with Minimal Ventilatory/Oxygen Support Outcome: Progressing Goal: Ability to maintain a clear airway will improve Outcome: Progressing Problem: Fluid and Electrolyte Imbalance: Goal: Adequate fluid and electrolyte balance will be achieved and maintained Outcome: Progressing Goal: Will show no signs and symptoms of excessive bleeding Outcome: Progressing Goal: Will remain free of signs and symptoms of fluid loss/inadequate intake Outcome: Progressing Goal: Control of fluid volume excess will improve Outcome: Progressing Problem: Activity Intolerance: Goal: Will be free of DVT Outcome: Progressing Problem: VTE Prophylaxis: Goal: Will be free of DVT Outcome: Progressing Problem: Acute Pain: Goal: Ability to identify pain intensity on a pain scale and rate it consistently will be achieved and maintained Outcome: Progressing Goal: Understanding of proper administration and use of medicines will be achieved Outcome: Progressing Goal: Ability to identify factors that manage or decrease pain will be achieved Outcome: Progressing Problem: Safety: Goal: Patient will remain free of falls during hospital stay Outcome: Progressing Goal: Free from injury during hospitalization Outcome: Progressing Problem: Discharge Planning: Goal: Discharge needs of the adult patient will be met Outcome: Progressing Normal [employer] OP Noteon 07-11-2023 Part Maker Authentication Interface Message Text Name: WALTER ANDRADE MR#: [id number] [facility]#: [id number] Date of Procedure: 07/11/2023 ATTENDING SURGEON: Vick Kincaid MD A&P TECHNICIAN: Ninfa Prescott PA-C PREOPERATIVE DIAGNOSIS: Bilateral nodular thyroid disease with nodule, left lobe of the thyroid gland, extending retrosternally, persistent atypia of undetermined significance and Afirma testing suspicious for cancer. POSTOPERATIVE DIAGNOSIS: Bilateral nodular thyroid disease with nodule, left lobe of the thyroid gland, extending retrosternally, persistent atypia of undetermined significance and Afirma testing suspicious for cancer. PROCEDURE: Total thyroidectomy with resection of left substernal nodule, cervical approach. RESIDENT SURGEON: Devin Ortega MD. ANESTHESIA: General endotracheal. ESTIMATED BLOOD LOSS: 25 cc. SPECIMEN: The entire thyroid gland weighing 22 g. and lymph nodes central compartment of neck INTRAOPERATIVE FINDINGS: The patient was noted to have bilateral nodular thyroid disease. The largest nodule was arising from the inferior pole of the left lobe of the thyroid gland and was extending retrosternally. The weight of the excised thyroid gland was 22 g. The nodule in the left lobe of the thyroid gland measured 3.5 x 2 x 2.3 cm in dimensions. DESCRIPTION OF PROCEDURE: The patient was placed in a supine position, was sterilely prepped and draped in usual fashion. After a surgical time-out was completed, 0.5% Marcaine was used to anesthetize the site of the skin incision prior to making the incision to establish preemptive analgesia. A transverse collar incision was made approximately 2 fingerbreadths above the sternal notch with a 15-blade scalpel. The electrocautery was used to incise the subcutaneous tissue and the platysmal muscle. Superior and inferior skin flaps were raised in a subplatysmal plane. The strap muscles were in the midline along the median raphe with the electrocautery. The right lobe of the thyroid gland was mobilized anteromedially. The right middle thyroid vein was delineated, was ligated with 3-0 silk suture and was divided with the Harmonic scalpel. The left superior pole vessels were delineated, were individually ligated with 2-0 and 3-0 silk sutures and were divided with the Harmonic scalpel. The right recurrent laryngeal nerve was identified, was traced through its entire course and was preserved. Throughout the dissection of the right recurrent laryngeal nerve, the intraoperative nerve monitor was used to confirm the functional integrity of the nerve. The right inferior pole vessels were delineated, were individually ligated with 2-0 and 3-0 silk sutures and were divided with the Harmonic scalpel. What was felt to represent the right superior and right inferior parathyroid glands were preserved in situ. The branches of the right inferior thyroid artery were delineated close to the thyroid gland so as to preserve the blood supply to the parathyroid glands. The branches of the right inferior thyroid artery were ligated with 3-0 silk suture and were divided with a 15-blade scalpel. During the most proximal dissection of the right recurrent laryngeal nerve, the auditory signal was lost using the intraoperative nerve monitor. The nerve was visibly intact. This suggested a possible paresis of the nerve secondary to traction. The right lobe of the thyroid gland was mobilized to the left side of the trachea. This was accomplished by sharply dividing the ligament of Woody with the Metzenbaum scissors. There was noted to be some fibrofatty tissue in the prelaryngeal and pretracheal areas. This was excised and was submitted in a separate specimen cup labeled lymph nodes from the central compartment of the neck. These were submitted to Pathology for paraffin evaluation. The left lobe of the thyroid gland was mobilized anteromedially. The left middle thyroid vein was delineated, was ligated with 3-0 silk suture and was divided with the Harmonic scalpel. The left superior pole vessels were delineated, were individually ligated with 2-0 and 3-0 silk sutures and were divided with the Harmonic scalpel. The patient was noted to have a large nodule arising from the inferior pole of the left lobe of the thyroid gland that was principally retrosternal. The retrosternal component of the nodule was progressively elevated into the operative field using traction on the cervical component of the thyroid gland and digital mobilization. Once the retrosternal component of the left-sided thyroid nodule was delivered into the operative field, the left recurrent laryngeal nerve was identified was traced through its entire course and was preserved. The left inferior pole vessels were delineated, were individually ligated with 2-0 and 3-0 silk sutures and were divided with the Harmonic scalpel. What was felt to represent the left superior and left inferior parathyroid glands were (more content not included)... Normal [employer] Progress Noteson 07-11-2023 Part Maker Authentication Interface Message Text Post-op check note S: No acute events since surgery. Pt has tolerated clears without nausea and vomiting. Pain is adequately controlled, complains mostly of pain with swallowing . Denies CP and SOB. O: Vitals Recorded in This Encounter 07/11/2023 1115 07/11/2023 1130 07/11/2023 1145 07/11/2023 1150 07/11/2023 1435 BP: 132/74 125/92 -- 146/86 127/75 Pulse: 66 93 -- 105 102 Resp: 18 20 -- 20 20 Temp: -- 98.3 ???F (36.8 ???C) -- 98.5 ???F (36.9 ???C) 97.8 ???F (36.6 ???C) Temp src: -- Temporal -- Oral Oral SpO2: 93 % 92 % -- 92 % 93 % Pain Score: 7 3 5 -- -- Intake/Output Summary (Last 24 hours) at 07/11/2023 1631 Last data filed at 07/11/2023 1435 Gross per 24 hour Intake 1850 ml Output 25 ml Net 1825 ml Gen: NAD, resting comfortably in bed Neuro: Alert and oriented Chest: breathing comfortably ORA Neck: Island dressing place, no strikethrough present. Neck is soft, appropriately tender to palpation. No swelling or fullness of incision appreciated. Extremities: moving all extremities equally A/P Pt is POD#0 s/p total thyroidectomy. Pt tolerated procedure well. - Cont to optimize pain control - Cont diet as ordered - Check calcium/magnesium in am - Synthroid 150mcg ordered to start tomorrow morning Ninfa Prescott PA-C 07/11/23 [facility] Pager# [phone] Normal [facility] URINE HCG-IN OFFICEOrdered B y: Nya Madiha on 07-11-2023 HCG ( test) Ql (U) Negative Negative [facility] Interpretation and review of laboratory results Normal [facility] Negative Internal Control Negative Negative [facility] Positive Internal Control Positive Positive [facility] LYME ANTIBODIES, IGG, IGMon 06-22-2023 B. burgdorferi Ab IA Qn (S) <0.90 index [facility] Comment on above: Index Interpretation ----- < 0.90 Negative 0.90-1.09 Equivocal > 1.09 Positive As recommended by the Food and Drug Administration (FDA), all samples with positive or equivocal results in a Borrelia burgdorferi antibody screen will be tested using a blot method. Positive or equivocal screening test results should not be interpreted as truly positive until verified as such using a supplemental assay (e.g., B. burgdorferi blot). The screening test and/or blot for B. burgdorferi antibodies may be falsely negative in early stages of Lyme disease, including the period when erythema migrans is apparent. Resulting Agency Address Site ID: QPT Name: [employer] [facility] Address: [address] [facility], [address] [place] [id number] Director: Ashwin Benz MD [facility] VITAMIN D, 25-HYDROXYon 06-12 25-hydroxyvitamin D IA [Mass/Vol] 28 ng/mL Low 30 - 100 ng/mL [facility] Interpretation and review of laboratory results Abnormal [facility] Deficient : <20.0 ng /mL Insufficient : 20.0-29.9 ng/mL Sufficient : 30.0 - 100.0 ng/mL Potential Toxicity : >100.0 ng/mL [facility] AUTOIMMUNE MULTIPLEX PANELon 06-21-2023 Interpretation and review of laboratory results Normal [facility] Nuclear Ab IA Ql (S) Negative Negative [facility] ds DNA Reference Range: < or = to 4 IU/mL-Negative 5-9 IU/mL-Indeterminate > or = to 10 IU/mL-Positive A negative screen reflects the following tests as negative-dsDNA Antibody, SS-A Antibody, SS-B Antibody, Centromere Antibody, Posada Antibody, Posada/RECORDS ADMINISTRATOR Antibody, RECORDS ADMINISTRATOR Antibody, Scleroderma-70 Antibody, CHUNG-1 Antibody, Ribosomal P Antibody, Chromatin Antibody. [facility] Basic metabolic 2000 panelon 06-21-2023 Anion gap [Moles/Vol] 14 mmol/L 10 - 20 [facility] Calcium [Mass/Vol] 10.3 mg/dL 8.6 - 10. 3 mg/dL [facility] Chloride [Moles/Vol] 104 mmol/L 98 - 10 7 mmol/L [facility] CO2 [Moles/Vol] 26 mmol/L 21 - 31 mmol/L [facility] Creatinine [Mass/Vol] 0.71 mg/dL 0.60 - 1.20 mg/dL [facility] GFR/1.73 sq M.predicted CKD-EPI (S/P/Bld) [Vol rate/Area] 121 - PINF [facility] Comment on above: 2020 CKD EPI Equatio n using Creatinine without Race Comment: Estimated glomerular filtration rate (eGFR) is calculated without a race coefficient. Values should be interpreted in the context of the patient's full clinical presentation. Reference: 1. Amilcar C, Aparna M, Keisha LU, et al.. A Unifying Approach for GFR Estimation: Recommendations of the NKF-ASN Task Force on Reassessing the Inclusion of Race in Diagnosing Kidney Disease. Spanish Journal of Kidney Diseases 202;79(2):268-88.e1. 2. N Engl J Med 2020 Vol. 385 Issue 19 Pages 2870-7433 Glucose [Mass/Vol] 90 mg/dL 74 - 109 mg/dL [facility] Potassium [Moles/Vol] 4.0 mmol/L 3.5 - 5.0 mmol/L [facility] Sodium [Moles/Vol] 140 mmol/L 136 - 145 mmol/L [facility] Urea nitrogen [Mass/Vol] 15 mg/dL 7 - 25 mg/dL [facility] CBC WITH DIFFERENTIALon 04-0 Basophils (Bld) [#/Vol] 0.06 10*3/uL 0.00 - 0.20 K/uL [facility] Basophils/100 WBC (Bld) 0.7 % NINF - 1.9 % [facility] Eosinophils (Bld) [#/Vol] 0.12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 06-24-2022 Bacteria identified Cx Nom (U) 50,000 - 100,000 CFU/ml Multiple bacteria present suggesting contamination. [facility] Interpretation and review of laboratory results Normal [facility] IF clinically indicated, suggest appropriate recollection with timely delivery to the laboratory. For additional information, call ext [phone]. [facility] VITAMIN D, 25-HYDROXYon 06-12 25-hydroxyvitamin D IA [Mass/Vol] 22.0 ng/mL Low 30 - 100 ng/mL [facility] Interpretation and review of laboratory results Abnormal [facility] Basic metabolic 2000 panelon 06-23-2022 Anion gap [Moles/Vol] 16 mmol/L 10 - 20 [facility] Calcium [Mass/Vol] 9.7 mg/dL 8.4 - 10. 4 mg/dL [facility] Chloride [Moles/Vol] 102 mmol/L 97 - 11 1 mmol/L [facility] CO2 [Moles/Vol] 25 mmol/L 21 - 30 mmol/L [facility] Creatinine [Mass/Vol] 0.65 mg/dL 0.50 - 1.10 mg/dL [facility] GFR/1.73 sq M.predicted MDRD (S/P/Bld) [Vol rate/Area] 126 mL/min/{1.73_m2} - PINF [facility] Comment on above: 2020 CKD EPI Equatio n using Creatinine without Race Comment: Estimated glomerular filtration rate (eGFR) is calculated without a race coefficient. Values should be interpreted in the context of the patient's full clinical presentation. Reference: 1. Amilcar C, Aparna M, Keisha DC, et al.. A Unifying Approach for GFR Estimation: Recommendations of the NKF-ASN Task Force on Reassessing the Inclusion of Race in Diagnosing Kidney Disease. Spanish Journal of Kidney Diseases 202;79(2):268-88.e1. 2. N Engl J Med 1 Vol. 385 Issue 19 Pages 3003-0524 Glucose [Mass/Vol] 81 mg/dL 68 - 110 mg/dL [facility] Interpretation and review of laboratory results Normal [facility] Potassium [Moles/Vol] 4.3 mmol/L 3.3 - 5.3 mmol/L [facility] Sodium [Moles/Vol] 139 mmol/L 135 - 148 mmol/L [facility] Urea nitrogen [Mass/Vol] 10 mg/dL 8 - 22 mg/dL [facility] CBC panel Auto (Bld)on 06-23 Erythrocyte distribution width (RBC) [Ratio] 14.2 % 11.5 - 14.5 % [facility] Hematocrit (Bld) [Volume fraction] 39.8 % 36.0 - 46.0 % [facility] Hemoglobin (Bld) [Mass/Vol] 13.5 g/dL 12.0 - 15.0 g/dL [facility] Interpretation and review of laboratory results Normal [facility] MCH (RBC) [Entitic mass] 29.0 pg 26.0 - 34.0 pg [facility] MCHC (RBC) [Mass/Vol] 33.8 g/dL 32.0 - 35.9 g/dL [facility] MCV (RBC) [Entitic vol] 86 fL 80 - 100 fL [facility] Platelet mean volume (Bld) [Entitic vol] 10.4 fL 7.5 - 11.2 fL [facility] Platelets (Bld) [#/Vol] 276 10*3/uL 150 - 400 K/uL [facility] RBC (Bld) [#/Vol] 4.64 10*6/uL [facility] WBC (Bld) [#/Vol] 8.2 10*3/uL 4.5 - 11.5 K/uL [facility] DEHYDROEPIANDROSTERONE SULFA [place] 06-23-2022 DHEA-S [Mass/Vol] 306.0 ug/dL 70.0 - 393 .0 ug/dL [facility] Interpretation and review of laboratory results Normal [facility] FSHon 06-23-2022 Follitropin Qn 5.8 m[IU]/mL [facility] Interpretation and review of laboratory results Normal [facility] Males: 1.5 to 18.1 mIU/L Menstruating Females: Follicular phase: 2.5 - 10.2 mIU/L Midcycle phase: 3.4 - 33.4 mIU/mL Luteal phase: 1.5 - 9.1 mIU/mL Post menopausal: 23.0 - 116.3 mIU/mL Oral Contraceptives: Not Detected - 5.8 mIU/mL [facility] HCV Ab IA Qn (S)on 3 HCV Ab Ql (S) Non-Reactive Nonreactive [facility] Interpretation and review of laboratory results Normal [facility] HEPATIC FUNCTION PANELon Albumin [Mass/Vol] 4.4 g/dL 3.4 - 5.1 g/dL [facility] ALP [Catalytic activity/Vol] 80 U/L [facility] ALT [Catalytic activity/Vol] 27 U/L [facility] AST [Catalytic activity/Vol] 19 U/L [facility] Bilirubin [Mass/Vol] 0.5 mg/dL 0.1 - 1 .5 mg/dL [facility] Bilirubin.direct [Mass/Vol] 0.10 mg/dL 0.10 - 0.30 mg/dL [facility] Protein [Mass/Vol] 7.3 g/dL 6.2 - 8.3 g/dL [facility] [facility] HE[facility] B SURFACE ANTIGENo n 06-23-2022 HBV surface Ag Ql (S) Non-Reactive Non-Reactive [facility] Interpretation and review of laboratory results Normal [facility] Lipid 1996 panelon Cholesterol [Mass/Vol] 181 mg/dL NINF - 200 mg/dL [facility] Cholesterol in HDL [Mass/Vol] 71 mg/dL 54 - PINF mg/dL [facility] Cholesterol in LDL [Mass/Vol] 94 mg/dL NINF - 111 mg/dL [facility] Cholesterol in LDL/Cholesterol in HDL [Mass ratio] 1.32 {ratio} NINF - 3.57 [facility] Cholesterol non HDL [Mass/Vol] 110 mg/dL NINF - 130 mg/dL [facility] Cholesterol.total/Estrellita sterol in HDL [Mass ratio] 2.55 {ratio} NINF - 5.00 [facility] Triglyceride [Mass/Vol] 126 mg/dL NINF - 151 mg/dL [facility] No Panel Informationon 06-23 [facility] Interpretation and review of laboratory results Normal [facility] PROLACTINon 06-23-2022 Prolactin [Mass/Vol] 4.1 ng/mL [facility] Comment on above: Non Females 2.80 - 29.20 ng/mL Females 9.70 - 208.50 ng/mL Postmenopausal Females 1.80 - 20.30 ng/mL SEX BINDING HORMONE (SHBG), TESTOSTERONE, FREE AND BIOAVAILABLEon 06-23-2022 Sex hormone binding globulin [Moles/Vol] 17.6 nmol/L [facility] Comment on above: Females: Normal Cycl in.2 - 135.7 nmol/L Post-menopausal: 16.8 - 106.9 nmol/L Testosterone [Mass/Vol] 61 ng/dL 20 - 70 ng/dL [facility] Testosterone Free [Mass/Vol] 1.5 ng/dL [facility] Comment on above: Females: Normal Cycl in.2 - 1.6 ng/dL Post-menopausal: 0.1 - 1.0 ng/dL Testosterone.free+weakl y bound [Mass/Vol] 35.6 ng/dL [facility] Comment on above: Females: Normal Cycl in.7 - 37.5 ng/dL Post-menopausal: 1.4 - 22.0 ng/dL TSHon 06-23-2022 Interpretation and review of laboratory results Normal [facility] TSH Qn 1.654 m[IU]/L [facility] Comment on above: Referance range for women as applicable: First Trimester: 0. 050 to 3.700 uIU/mL Second Trimester: 0. 310 to 4.350 uIU/mL Third Trimester: 0. 410 to 5.180 uIU/mL URINALYSISon 06-23-2022 Appearance (U) Clear Clear [facility] Bilirubin Ql (U) Negative Negative [facility] Color (U) Light Yellow Colorless [facility] Epithelial cells.squamous LM.HPF (Urine sed) [#/Area] 0-2 [facility] Glucose Auto test strip (U) [Mass/Vol] Negative Negative mg/dL [facility] Hemoglobin Ql (U) Trace Abnormal Negative [facility] Interpretation and review of laboratory results Abnormal [facility] Ketones Ql (U) Negative Negative mg/dL [facility] Leukocyte esterase Test strip Ql (U) Negative Negative [facility] Nitrite Ql (U) Negative Negative [facility] pH (U) 7.5 [pH] 5.0 - 8.0 [facility] Protein (U) [Mass/Vol] Negative Negat mary alice mg/dL [facility] Specific gravity (U) [Rel density] 1.016 NINF - 1.030 [facility] Urobilinogen Qn (U) Negative Negative mg/dL [facility] WBC (U) [#/Vol] 0-2 [facility] A negative leukocyte esterase AND negative nitrite test or absence of pyuria (urine WBC count <= 5-10) make a UTI (urinary tract infection) very unlikely in a non-neutropenic adult (<=5% likelihood in many studies). A positive leukocyte esterase, nitrite and/or pyuria is a nonspecific result. This can be seen in conditions other than a UTI e.g. asymptomatic bacteriuria, gynecologic infections, sexually transmitted infections, and noninfectious conditions (positive predictive value for UTI around 50%) [facility] VITAMIN B12 (CYANOCOBALAMIN) on 06-23-2022 Cobalamin (Vitamin B12) [Moles/Vol] 250 pg/mL Low 300 - PINF pg/mL [facility] Interpretation and review of laboratory results Abnormal [facility] <152 pg/mL - Deficie nt 152 - 300 pg/mL- Insufficient >300 pg/mL - Sufficient [facility] ALLIED HEALTHon 06-16-2020 ALLIED HEALTH HNO ID: [id number] Author: LITTLE Rojo (Ct) Service: Radiology Author Type: Clinical Manufacturing Manager Type: Allied Health Filed: 06/16/2020 7:43 AM Note Text: Radiology Service Progress Note PATIENT NAME: Walter Andrade DATE OF SERVICE: June 16, 2020 TIME: 7:42 AM PATIENT IDENTITY VERIFICATION COMPLETED USING TWO (2) IDENTIFIERS: Name and Date of confirmed by patient verbally and Name and Date of confirmed by identification band. FALL SCREENING: Has the patient had 2 falls in the last year or 1 fall with injury or currently using an Ambulatory Assistive Device (Walker, Cane, Wheelchair, Crutches, etc.)? Emergency Room Patient: Screened in ED PATIENT GENDER DATA: Female. status: : No status: NO. PATIENT RELEVANT IMPLANT DATA REVIEWED: Not Applicable RADIOLOGY DEPARTMENT: CT; Exam(s) Completed: Brain PERIPHERAL IV DATA: Not applicable SIGNED BY: LITTLE Rojo June 16, 2020 7:[address] [facility] CT BRAIN WO IVCONon 06-17-[address] BRAIN WO IVCON * * *Final Report* * * DATE OF EXAM: Jun 16 2020 7:43AM [facility] - CT BRAIN WO IVCON / PROCEDURE REASON: Neoplasm: head, metastatic, suspected * * * * Physician Interpretation * * * * EXAMINATION: CT BRAIN WO IVCON CLINICAL HISTORY: Neoplasm: head, metastatic, suspected TECHNIQUE: Serial axial images without IV contrast were obtained from the vertex to the foramen magnum. MQ: [id number] CT Radiation dose: Integrated Dose-Length Product (DLP) for this visit = 638 mGy*cm CT Dose Reduction Employed: No dose reduction techniques were required COMPARISON: None. RESULT: Post-operative change: None. Acute change: No evidence of an acute infarct or other acute parenchymal process. Hemorrhage: No evidence of acute intracranial hemorrhage. ECASS hemorrhagic transformation score: Not Applicable Mass Lesion / Mass Effect: There is no evidence of an intracranial mass or extraaxial fluid collection. No significant mass effect. Chronic change: None apparent. Parenchyma: There is no significant volume loss. The brain parenchyma is otherwise within normal limits for age. Ventricles: The ventricles are within normal limits of size and configuration for age. Paranasal sinuses and skull base: The visualized paranasal sinuses are grossly clear. The skull base and imaged soft tissues are unremarkable. Communication Coordinator (topogram) images: No additional findings. IMPRESSION: No acute intracranial director of logistics: PSCB Transcribe Date/Time: Jun 16 2020 7:54A Dictated by : COOPER ROLDAN MD This examination was interpreted and the report reviewed and electronically signed by: COOPER ROLDAN MD on Jun 16 2020 7:57AM EST [id number] [facility] ED NOTEon 06-16-2020 ED NOTE HNO ID: [id number] Author: Ángela KrishnanRn) ALEXEY Quintana Service: Nursing Author Type: Registered Nurse Type: ED Notes Filed: 06/18/2020 12:00 PM Note Text: Emergency Services: ED Call Back Questionnaire SERVICE DATE: 06/16/2020 Message left on pt voicemail. Unable to reach pt @ this time. SIGNATURE: Ángela Quintana RN PATIENT NAME: Walter Andrade DATE: June 18, 2020 TIME: 12:00 PM [facility] ED NOTE HNO ID: [id number] Author: Kassandra KrishnanRn) ALEXEY Barber Service: ? Author Type: Registered Nurse Type: ED Notes Filed: 06/16/2020 8:12 AM Note Text: Discharge instructions reviewed with patient via teachback. Pt awake and alert, respirations regular and unlabored. Pt verbalizes understanding. No further questions for this RN. [facility] ED NOTE HNO ID: [id number] Author: Arin KrishnanRn) ALEXEY [facility] Service: ? Author Type: Registered Nurse Type: ED Notes Filed: 06/16/2020 7:19 AM Note Text: Pt presents to ED c/o pupils being unequal this morning when she got up. Pupils appear equal at this time. Pt denies headache or vision changes [facility] ED PROV NOTEon 06-16-2020 ED PROV NOTE HNO ID: [id number] Author: Deloris Vasquez MD Service: ? Author Type: Physician Type: ED Provider Notes Filed: 06/16/2020 8:06 AM Note Text: ED Provider Note Patient Name: Walter Andrade SERVICE DATE: 06/16/20 History Patient presents with: Eye Complaint: pupils unequal this morning Patient is a 20-year-old female coming in with pupils that were unequal this morning. Patient states she felt okay this morning but when she went to brush her teeth noticed that her pupils were large and very unequal. She denies any vision trouble she denies any nausea vomiting head trauma. Patient does take a baby aspirin daily. Denies any headaches. Patient denies any fevers chills chest pain or shortness of breath. Patient states her pupils are much better since being here. She denies any difficulty walking she is never had this before. She is recently increased her Zoloft but denies any other new medications she states that she did not sleep anywhere different last evening. History reviewed. No pertinent past medical history. History reviewed. No pertinent surgical history. No family history on file. Social History Tobacco Use - Smoking status: Former Smoker - Smokeless tobacco: Former User Vaping Use - Vaping Use: current everyday user - Substances: Nicotine Substance and Sexual Activity - Alcohol use: Yes - Drug use: Yes Types: Marijuana - Sexual activity: Not on file ALLERGIES No Known Allergies Review of Systems Constitutional: Negative for fever. Respiratory: Negative for shortness of breath. Cardiovascular: Negative for chest pain. Gastrointestinal: Negative for abdominal pain and vomiting. All other systems reviewed and are negative. Physical Exam BP 131/75 Pulse 92 Temp (Src) 97.5 (Oral) Resp 18 Wt 230 lb (104.3kg) SpO2 98% LMP 05/27/2020 O2 Therapy: Room Air Physical Exam Vitals and nursing note reviewed. Constitutional: General: She is not in acute distress. Appearance: She is not ill-appearing. HENT: Head: Normocephalic. Right Ear: Tympanic membrane normal. Left Ear: Tympanic membrane normal. Mouth/Throat: Mouth: Mucous membranes are moist. Eyes: Comments: There is a very slight increase in the right pupil from left pupil 3 on the left pupil 3.25 on the right pupil. Extraocular muscles are intact conjunctiva is clear. Pupils are both reactive to light extraocular muscles are intact Cardiovascular: Rate and Rhythm: Normal rate and regular rhythm. Pulmonary: Effort: Pulmonary effort is normal. Breath sounds: Normal breath sounds. Abdominal: Palpations: Abdomen is soft. Tenderness: There is no abdominal tenderness. Musculoskeletal: Cervical back: Neck supple. Skin: General: Skin is warm. Neurological: General: No focal deficit present. Mental Status: She is alert and oriented to person, place, and time. Cranial Nerves: No cranial nerve deficit. Sensory: No sensory deficit. Motor: No weakness. Coordination: Coordination normal. Gait: Gait normal. Comments: [id number] test is normal Romberg is negative Psychiatric: Mood and Affect: Mood normal. Diagnostic Testing ED Labs Ordered and Reviewed - No data to display Procedures ED Course / Clinical Impression Clinical Impressions as of Jun 16 804 Pupil diameter unequal MDM / Disposition / Plan Neurologic exam is otherwise negative CAT scan of the brain is negative and at this point patient will be discharged home. He is advised to follow with primary care or ophthalmology and return with any worsening symptoms or concerns The patient was DISCHARGED: Counseled patient and family regarding radiology results AND need for follow-up. Discharged home with verbal and written instructions. They were instructed to return as needed for persistent or worsening symptoms or any new concerns. Condition at time of disposition: stable SIGNATURE: MD Deloris Farr MD 06/16/20 0806 [facility] US Thyroid/Parathyroidon US Thyroid/Parathyroid [facility]: [id number] ACCESSION EXAM DATE/TIME PROCEDURE ORDERING PROVIDER [id number] 05/09/2020 11:00 EST US Parathyroid MYRTLE COBB D.O. CPT code 19162 Reason For Exam (US Parathyroid) Iodine-deficiency related diffuse (endemic) goiter Report ULTRASOUND THYROID: CLINICAL INDICATION: Thyromegaly. Iodine deficiency related diffuse goiter. TECHNIQUE: Ultrasonographic evaluation of the thyroid including color flow imaging COMPARISON: None FINDINGS: RIGHT LOBE: Size: Normal size. 1.3 x 1.5 x 4.4 cm (AP x transverse x sagittal) Nodules: Two Nodule Location: Lateral lower pole Size: 0.5 x 0.9 x 1.0 cm (AP, transverse, sagittal) Composition: Solid (+2) Echogenicity: Hypoechoic (+2) Margins: Smooth (0) Calcifications: None (0) TI-RADS score*: 4 - moderately suspicious Change since last exam: Not applicable Nodule Location: Medial lower pole Size: 0.8 x 0.9 x 1.6 cm (AP, transverse, sagittal) Composition: Solid (+2) Echogenicity: Hypoechoic (+2) Margins: Smooth (0) Calcifications: None (0) TI-RADS score*: 4 - moderately suspicious Change since last exam: Not applicable LEFT LOBE: Size: Normal size. 1.7 x 2.3 x 4.8 cm (AP x transverse x sagittal) Nodules: One Nodule Location: Lower pole Size: 1.6 x 2.1 x 3.0 cm (AP, transverse, sagittal) Composition: Solid (+2) Echogenicity: Isoechoic (+1) Margins: Smooth (0) Calcifications: None (0) Ultrasound Report TI-RADS score*: 3 - mildly suspicious Change since last exam: Not applicable ISTHMUS: Normal. CERVICAL LYMPH NODES: None identified. IMPRESSION: Bilateral thyroid nodules for which surveillance follow-up in one year is recommended.. *TI-RADS (2017) Reference: Melanie Elizabeth. ACR Thyroid Imaging, Reporting and Data System (TI-RADS): White Paper of the ACR TI-RADS Committee. J Am [employer]abier [employer]. June 2016 Thyroid nodule details (add points for total score): Composition(points): 1 - mixed cystic and solid 2 - solid Echogenicity: 1 - hyperechoic or isoechoic 2 - hypoechoic 3 - very hypoechoic Shape: 3 - taller than wide Margin: 2 - lobulated or irregular 3 - extrathyroidal extension Echogenic foci: 1 - macrocalcifications 2 - rim calcification 3 - microcalcifications Risk for malignancy: TI-RADS 1: 0 points - (benign) <2% risk TI-RADS 2: 2 points - (not suspicious) <5% TI-RADS 3: 3 points - (mildly suspicious) <5% FNA when >/= 2.5cm Follow when >1.5cm at 1, 3 and 5 years TI-RADS 4: 4-6 points - (moderately suspicious) 5-20% FNA when >/= 1.5cm Follow when >1.0cm at 1, 2, 3 and 5 years TI-RADS 5: 7+ points - (highly suspicious) >20% FNA when >/= 1.0cm Follow when >0.5cm every year for up to 5 years Please note: There are other existing guidelines to classify thyroid nodules to determine need for FNA; and this decision will be deferred to the ordering physician. Note: There are existing guidelines to classify the thyroid nodule(s) and determine need for FNA and this decision will be deferred to the ordering clinician. Ultrasound Report Report Dictated on Final Dictating Physician: MD DAY DIANE Signed Date and Time: 05/09/2020 3:58 pm Signed by: MD DAY DIANE Transcribed Date and Time: 05/09/2020 3:59 Normal [facility] CBCon 03-24-2020 Erythrocyte distribution width (RBC) [Ratio] 13.4 % 11.5 - 14.5 % [place], [place] Hematocrit (Bld) [Volume fraction] 40.7 % 35 - 47 % [place] Hemoglobin (Bld) [Mass/Vol] 13.8 g/dL 11.7 - 16 g/dL [place] MCH (RBC) [Entitic mass] 29.5 pg 26 - 34 pg [place] MCHC (RBC) [Mass/Vol] 34.0 % 32 - 36 % [place], [place] MCV (RBC) [Entitic vol] 87.0 fL 79 - 98 fL [place] Platelet mean volume (Bld) [Entitic vol] 9.6 fL 7.4 - 10.4 fL [place] Platelets (Bld) [#/Vol] 255 10*3/uL 140 - 440 10*3/uL [place] RBC (Bld) [#/Vol] 4.68 10*6/uL 3.8 - 5.2 10*6/uL [place] WBC (Bld) [#/Vol] 9.6 10*3/uL 3.6 - 10.7 10*3/uL [facility] [place], [place] Test Performed by [facility], [address] , [place], [place] [address] [facility], [place] Comp Metabolic Panelon 03-24 Calcium [Mass/Vol] 9.8 mg/dL Normal 8.4-10.4 [facility] Comment on above: Performed By: #### C MP3, HEMOG, FT4M, TSH5 #### [facility] [address] [place] [address] ALP [Catalytic activity/Vol] 84 U/L Normal 38-126 [facility] Comment on above: Performed By: #### C MP3, HEMOG, FT4M, TSH5 #### [facility] [address] [place] [address] ALT [Catalytic activity/Vol] 18 U/L Normal 0-34 [facility] Comment on above: Result Comment: The ALT test is performed by an updated assay method. Please note that the reference intervals have been changed and are now sex specific. Performed By: #### C MP3, HEMOG, FT4M, TSH5 #### [facility] [address] [place] [address] Anion gap [Moles/Vol] 5 Normal [facility] Comment on above: Performed By: #### C MP3, HEMOG, FT4M, TSH5 #### [facility] [address] [place] [address] AST [Catalytic activity/Vol] 26 U/L Normal 15-46 [facility] Comment on above: Performed By: #### C MP3, HEMOG, FT4M, TSH5 #### [facility] [address] [place] [address] Bilirubin [Mass/Vol] 0.4 mg/dL Normal 0.2-1.3 [facility] Comment on above: Performed By: #### C MP3, HEMOG, FT4M, TSH5 #### [facility] [address] [place] [address] CO2 [Moles/Vol] 29 mmol/L Normal 22-30 [facility] Comment on above: Performed By: #### C MP3, HEMOG, FT4M, TSH5 #### [facility] [address] [place] [address] Creatinine [Mass/Vol] 0.69 mg/dL Normal 0.52-1.25 [facility] Comment on above: Performed By: #### C MP3, HEMOG, FT4M, TSH5 #### [facility] [address] [place] [address] GFR/1.73 sq M predicted among blacks MDRD (S/P/Bld) [Vol rate/Area] mL/min/{1.73_m2} Normal >60 [facility] Comment on above: Performed By: #### C MP3, HEMOG, FT4M, TSH5 #### [facility] [address] [place] [address] GFR/1.73 sq M predicted among non-blacks MDRD (S/P/Bld) [Vol rate/Area] mL/min/{1.73_m2} Normal >60 [facility] Comment on above: Result Comment: KDIG O guidelines provide the following GFR categories: Stage GFR(ml/min/1.73 m2) Terms G1 >=90 Normal or high G2 60-89 Mildly decreased* G3a 45-59 Mildly to moderately decreased G3b 30-44 Moderately to severely decreased G4 15-29 Severely decreased G5 <15 Kidney failure *Relative to young adult level. In the absence of evidence of kidney damage, neither GFR category G1 nor G2 fulfill the criteria for CKD. The CKD-EPI equation is validated in individuals 18 years of age and older. Currently the best equation for estimating glomerular filtration rate (GFR) from serum creatinine in children is the Bedside Eid equation. It is less accurate in patients with extremes of muscle mass, restriction of dietary protein, ingestion of creatine, extra-renal metabolism of creatinine, or treatment with medications that affect renal tubular creatinine secretion. Performed By: #### C MP3, HEMOG, FT4M, TSH5 #### [facility] [address] [place] [address] Glucose [Mass/Vol] 85 mg/dL Normal 70-100 [facility] Comment on above: Performed By: #### C MP3, HEMOG, FT4M, TSH5 #### [facility] [address] [place] [address] Protein [Mass/Vol] 7.6 g/dL Normal 6.3-8.2 [facility] Comment on above: Performed By: #### C MP3, HEMOG, FT4M, TSH5 #### [facility] [address] [place] [address] Urea nitrogen [Mass/Vol] 11 mg/dL Normal 7-20 [facility] Comment on above: Performed By: #### C MP3, HEMOG, FT4M, TSH5 #### [facility] [address] [place] [address] Albumin [Mass/Vol] 4.7 g/dL Normal 3.5-5.0 [facility] Comment on above: Performed By: #### C MP3, HEMOG, FT4M, TSH5 #### [facility] [address] [place] [address] Chloride [Moles/Vol] 102 mmol/L Normal 98-107 [facility] Comment on above: Performed By: #### C MP3, HEMOG, FT4M, TSH5 #### [facility] [address] [place] [address] Sodium [Moles/Vol] 137 mmol/L Normal 135-145 [facility] Comment on above: Performed By: #### C MP3, HEMOG, FT4M, TSH5 #### [facility] [address] [place] [address] Potassium [Moles/Vol] 4.3 mmol/L Normal 3.5-5.1 [place] Comment on above: Performed By: #### C MP3, HEMOG, FT4M, TSH5 #### [facility] [address] [place] [address] Comprehensive Metabolic Pane shruthi 03-24-2020 Albumin [Mass/Vol] 4.7 g/dL 3.5 - 5 g/dL [place], [place] ALP [Catalytic activity/Vol] 84 U/L 38 - 126 U/L [place] ALT [Catalytic activity/Vol] 18 U/L 0 - 34 U/L [place] Comment on above: The ALT test is perf ormed by an updated assay method. Please note that the reference intervals have been changed and are now sex specific. Anion gap [Moles/Vol] 5 mmol/L [place] AST [Catalytic activity/Vol] 26 U/L 15 - 46 U/L [place] Bilirubin Ql (U) 0.4 mg/dL 0.2 - 1.3 mg/dL [place] Calcium [Mass/Vol] 9.8 mg/dL 8.4 - 10. 4 mg/dL [place] Chloride [Moles/Vol] 102 mmol/L 98 - 10 7 mmol/L [place] CO2 [Moles/Vol] 29 mmol/L 22 - 30 mmol/L [place] Creatinine [Mass/Vol] 0.69 mg/dL 0.52 - 1.25 mg/dL [place] EGFR IF NonAfrican Spanish >90.0 >60 mL/min [place] Comment on above: KDIGO guidelines pro vide the following GFR categories: Stage GFR(ml/min/1.73 m2) Terms G1 >=90 Normal or high G2 60-89 Mildly decreased* G3a 45-59 Mildly to moderately decreased G3b 30-44 Moderately to severely decreased G4 15-29 Severely decreased G5 <15 Kidney failure *Relative to young adult level. In the absence of evidence of kidney damage, neither GFR category G1 nor G2 fulfill the criteria for CKD. The CKD-EPI equation is validated in individuals 18 years of age and older. Currently the best equation for estimating glomerular filtration rate (GFR) from serum creatinine in children is the Bedside Eid equation. It is less accurate in patients with extremes of muscle mass, restriction of dietary protein, ingestion of creatine, extra-renal metabolism of creatinine, or treatment with medications that affect renal tubular creatinine secretion. GFR/1.73 sq M predicted among blacks MDRD (S/P/Bld) [Vol rate/Area] mL/min/{1.73_m2} >60 mL/min [place] Glucose [Mass/Vol] 85 mg/dL 70 - 100 mg/dL [place] Protein [Mass/Vol] 7.6 g/dL 6.3 - 8.2 g/dL [place] Sodium [Moles/Vol] 137 mmol/L 135 - 145 mmol/L [place] Urea nitrogen [Mass/Vol] 11 mg/dL 7 - 20 mg/dL [place] Test Performed by [facility], [address] , [place], [place] [id number] [place] [address] Free T4on 03-24-2020 Free T4 [Mass/Vol] 0.92 ng/dL Normal 0.78-2.19 [facility] Comment on above: Performed By: #### C MP3, HEMOG, FT4M, TSH5 #### [facility] [address] [place] [address] Hemogramon 03-24-2020 Erythrocyte distribution width (RBC) [Ratio] 13.4 % Normal 11.5-14.5 [facility] Comment on above: Performed By: #### C MP3, HEMOG, FT4M, TSH5 #### [facility] [address] [place] [address] Hematocrit (Bld) [Volume fraction] 40.7 % Normal 35.0-47.0 [facility] Comment on above: Performed By: #### C MP3, HEMOG, FT4M, TSH5 #### [facility] [address] [place] [address] Hemoglobin (Bld) [Mass/Vol] 13.8 g/dL Normal 11.7-16.0 [facility] Comment on above: Performed By: #### C MP3, HEMOG, FT4M, TSH5 #### [facility] [address] [place] [address] MCH (RBC) [Entitic mass] 29.5 pg Normal 26.0-34.0 [facility] Comment on above: Performed By: #### C MP3, HEMOG, FT4M, TSH5 #### [facility] [address] [place] [address] MCHC (RBC) [Mass/Vol] 34.0 % Normal 32.0-36.0 [facility] Comment on above: Performed By: #### C MP3, HEMOG, FT4M, TSH5 #### [facility] [address] [place] [address] MCV (RBC) [Entitic vol] 87.0 fL Normal 79.0-98.0 [facility] Comment on above: Performed By: #### C MP3, HEMOG, FT4M, TSH5 #### [facility] [address] [place] [address] Platelet mean volume (Bld) [Entitic vol] 9.6 fL Normal 7.4-10.4 [facility] Comment on above: Performed By: #### C MP3, HEMOG, FT4M, TSH5 #### [facility] [address] [place] [address] Platelets (Bld) [#/Vol] 255 10*3/uL Normal 140-440 [facility] Comment on above: Performed By: #### C MP3, HEMOG, FT4M, TSH5 #### [facility] [address] [place] [address] RBC (Bld) [#/Vol] 4.68 10*6/uL Normal 3.80-5.20 [facility] Comment on above: Performed By: #### C MP3, HEMOG, FT4M, TSH5 #### [facility] [address] [place] [address] WBC (Bld) [#/Vol] 9.6 10*3/uL Normal 3.6-10.7 [facility] Comment on above: Performed By: #### C MP3, HEMOG, FT4M, TSH5 #### [facility] [address] [place] [address] T4, Freeon 03-24-2020 Free T4 [Mass/Vol] 0.92 ng/dL 0.78 - 2. 19 ng/dL [facility], [place] Test Performed by [facility], [address] , [place], [place] [address] [place] [address], [place] TSH without Reflexon 021 TSH Qn 1.268 u[IU]/mL 0.465 - 4.68 u[IU]/mL [place], [place] Test Performed by [facility], [address] , [place], [place] [address] [facility] Stim. Hormoneon 03-14 Thyroid Stim. Hormone 1.268 u[IU]/mL Normal 0.465-4.68 0 [facility] Comment on above: Performed By: #### C MP3, HEMOG, FT4M, TSH5 #### [facility] [address] [place] [address] DISCHARGE SUMMARYon 06-03-19 18 DISCHARGE SUMMARY [address] [id number] DISCHARGE SUMMARYPATIENT NAME: WALTER ANDRADE : 2000MED REC NO: [id number] ROOM: [address] [place] [address] NO: [id number] ADMIT DATE: 05/30/2017PROVIDER: Juan Regan DISCH DATE:HISTORY OF PRESENTING ILLNESS AND REASON FOR CURRENT ADMISSION: Thepatient is a 17-year-old female, feeling depressed and sad, having suicidalthoughts, and had several plans to kill herself. With this, [facility] [place]PAST PSYCHIATRIC HISTORY: History of major depressive disorder and she hadthree previous attempted suicide.MEDICAL AND SURGICAL HISTORY: She has polycystic ovarian disease.ALLERGIES: She denies any allergies to medication or food.COURSE DURING THE HOSPITAL STAY: After getting admitted to hospital, shewas started on metformin 850 mg p.o. b.i.d. with breakfast and supper,Micronor 0.35 mg daily, and Viibryd 10 mg p.o. daily. With this, shestabilized and she is being discharged home.MENTAL STATUS EXAM: At the time of discharge, the patient is cooperative. She has adequate psychomotor activity. She has adequate rapport. She hasadequate eye contact. Her psychomotor activity is within normal limits. Her speech is within normal limits. Her mood is subjectively okay,objectively appears to be euthymic. She has appropriate affect. Thoughtprocess is within normal limits. Thought contents are within normallimits. She denies any hallucinations or delusions. She denies anysuicidal or homicidal thoughts or plan. She is of average intelligence. She is oriented to time, place, and person. Her memory to recent, remote,and immediate events are within normal limits. She has adequate attentionand concentration. Her insight and judgment are fair. Her abstraction isfair.DIAGNOSES:1. Major depressive disorder, severe recurrent without psychosis.2. Polycystic ovarian disease.TREATMENT AND PLAN:1. The patient is discharged.2. She will follow up with her primary care physician and herpsychiatrist.MYRON HORAN INDURTID: 06/02/2017 18:36:36 [id number]_TJob#: [id number] Doc#: [id number]: Normal [facility] Hemoglobin A1Con 05-31-2017 Glucose mass conc 103 mg/dL Normal [facility] Comment on above: Result Comment: The ADA and AACC recommend providing the estimated average glucose result to permit better patient understanding of their HBA1c [place] [address] Performed By: #### C DP, HCG, CP, LIPR, TSH ####[address] [address] #### PROL, FT3, T4, GLYHGB ####[address] [address] Hemoglobin A1c/Hemoglobin.total mass fraction (Bld) 5.2 % Normal 4.0-6.0 [facility] Comment on above: Performed By: #### C DP, HCG, CP, LIPR, TSH ####[address] [address] #### PROL, FT3, T4, GLYHGB ####[address] [address] Prolactinon 05-31-2017 Prolactin 13.39 ug/L Normal 4.79-23.30 [facility] Comment on above: Result Comment: The presence of macroprolactin may cause interference in female patients with various endocrinological diseases or during .Performed at [address] [address] Performed By: #### C DP, HCG, CP, LIPR, TSH ####[address] [address] #### PROL, FT3, T4, GLYHGB ####[address] [address] T3, Freeon 05-31-2017 Triiodothyronine (T3) free 3.44 pg/mL Normal 2.02-4.43 [facility] Comment on above: Result Comment: Perf ormed at [address] [address] Performed By: #### C DP, HCG, CP, LIPR, TSH ####[address] [address] #### PROL, FT3, T4, GLYHGB ####[address] [address] Thyroxine T4on 05-31-2017 Thyroxine (T4) 8.2 ug/dL Normal 4.5-12.0 [facility] Comment on above: Result Comment: Perf ormed at [address] [address] Performed By: #### C DP, HCG, CP, LIPR, TSH ####[address] [address] #### PROL, FT3, T4, GLYHGB ####[address] [address] CBC with Diffon 05-30-2017 Abs. Basophil 0.00 k/uL Normal 0.0-0.2 [facility] Comment on above: Result Comment: Perf ormed at [facility] [address] [place] [address] Performed By: #### C DP, HCG, CP, LIPR, TSH ####[facility] [place] [address] #### PROL, FT3, T4, GLYHGB ####[address] [address] Abs.Neutrophil (Seg) 4.90 k/uL Normal 1.3-9.1 [facility] Comment on above: Performed By: #### C DP, HCG, CP, LIPR, TSH ####[facility] [place] [address] #### PROL, FT3, T4, GLYHGB ####[address] [address] Basophils/100 WBC Auto (Bld) 0 % Normal 0-2 [facility] Comment on above: Performed By: #### C DP, HCG, CP, LIPR, TSH ####[address] [address] #### PROL, FT3, T4, GLYHGB ####[address] [address] Eosinophils 0.20 10*3/uL Normal 0.0-0.4 [facility] Comment on above: Performed By: #### C DP, HCG, CP, LIPR, TSH ####[address] [address] #### PROL, FT3, T4, GLYHGB ####[address] [address] Eosinophils/100 leukocytes 2 % Normal 0-4 [facility] Comment on above: Performed By: #### C DP, HCG, CP, LIPR, TSH ####[address] [address] #### PROL, FT3, T4, GLYHGB ####[address] [address] Erythrocyte distribution width Auto Ratio (RBC) 15.3 % High 11.5-14.9 [facility] Comment on above: Performed By: #### C DP, HCG, CP, LIPR, TSH ####[address] [address] #### PROL, FT3, T4, GLYHGB ####[address] [address] Erythrocytes (RBC) 4.79 10*6/uL Normal 4.0-5.2 [facility] Comment on above: Performed By: #### C DP, HCG, CP, LIPR, TSH ####[address] [address] #### PROL, FT3, T4, GLYHGB ####[address] [address] Hematocrit (HCT) 40.2 % Normal 36-46 [facility] Comment on above: Performed By: #### C DP, HCG, CP, LIPR, TSH ####[address] [address] #### PROL, FT3, T4, GLYHGB ####[address] [address] Hemoglobin mass conc (Bld) 13.4 g/dL Normal 12.0-16.0 [facility] Comment on above: Performed By: #### C DP, HCG, CP, LIPR, TSH ####[address] [address] #### PROL, FT3, T4, GLYHGB ####[address] [address] Lymphocytes 2.70 10*3/uL Normal 1.2-5.2 [facility] Comment on above: Performed By: #### C DP, HCG, CP, LIPR, TSH ####[address] [address] #### PROL, FT3, T4, GLYHGB ####[address] [address] Lymphocytes/100 leukocytes 32 % Normal 25-45 [facility] Comment on above: Performed By: #### C DP, HCG, CP, LIPR, TSH ####[address] [address] #### PROL, FT3, T4, GLYHGB ####[address] [address] MCH 28.0 pg Normal 26-34 [facility] Comment on above: Performed By: #### C DP, HCG, CP, LIPR, TSH ####[address] [address] #### PROL, FT3, T4, GLYHGB ####[address] [address] MCHC mass conc (RBC) 33.3 g/dL Normal 31-37 [facility] Comment on above: Performed By: #### C DP, HCG, CP, LIPR, TSH ####[address] [address] #### PROL, FT3, T4, GLYHGB ####[address] [address] MCV 83.9 fL Normal 80-100 [facility] Comment on above: Performed By: #### C DP, HCG, CP, LIPR, TSH ####[address] [place] [address] #### PROL, FT3, T4, GLYHGB ####[address] [address] Monocytes 0.60 10*3/uL Normal 0.1-1.3 [facility] Comment on above: Performed By: #### C DP, HCG, CP, LIPR, TSH ####[address] [address] #### PROL, FT3, T4, GLYHGB ####[address] [address] Monocytes/100 leukocytes 7 % Normal 2-8 [facility] Comment on above: Performed By: #### C DP, HCG, CP, LIPR, TSH ####[address] [address] #### PROL, FT3, T4, GLYHGB ####[address] [address] Neutrophil (Seg) 59 % Normal 34-64 [facility] Comment on above: Performed By: #### C DP, HCG, CP, LIPR, TSH ####[address] [address] #### PROL, FT3, T4, GLYHGB ####[address] [address] Platelet mean volume (PMV) 9.7 fL Normal 6.0-12.0 [facility] Comment on above: Performed By: #### C DP, HCG, CP, LIPR, TSH ####[address] [address] #### PROL, FT3, T4, GLYHGB ####[address] [address] Platelets 294 10*3/uL Normal 150-450 [facility] Comment on above: Performed By: #### C DP, HCG, CP, LIPR, TSH ####[address] [address] #### PROL, FT3, T4, GLYHGB ####[address] [address] WBC (Leukocytes) 8.4 10*3/uL Normal 4.5-13.5 [facility] Comment on above: Performed By: #### C DP, HCG, CP, LIPR, TSH ####[address] [address] #### PROL, FT3, T4, GLYHGB ####[address] [address] Auto Diff Performed NOT REPORTED Normal [facility] Comment on above: Performed By: #### C DP, HCG, CP, LIPR, TSH ####[address] [address] #### PROL, FT3, T4, GLYHGB ####[address] [address] Erythrocyte morphology NOT REPORTED Normal [facility] Comment on above: Performed By: #### C DP, HCG, CP, LIPR, TSH ####[address] [address] #### PROL, FT3, T4, GLYHGB ####[address] [place] [address] Erythrocytes (RBC) NOT REPORTED Normal [facility] Comment on above: Performed By: #### C DP, HCG, CP, LIPR, TSH ####[address] [address] #### PROL, FT3, T4, GLYHGB ####[address] [address] Granulocytes/100 WBC (Bld) NOT REPORTED Normal 0.00-0.30 [facility] Comment on above: Performed By: #### C DP, HCG, CP, LIPR, TSH ####[address] [address] #### PROL, FT3, T4, GLYHGB ####[address] [address] Immature granulocytes #/vol (Bld) NOT REPORTED Normal 0 [facility] Comment on above: Performed By: #### C DP, HCG, CP, LIPR, TSH ####[address] [address] #### PROL, FT3, T4, GLYHGB ####[address] [address] Platelets NOT REPORTED Normal [facility] Comment on above: Performed By: #### C DP, HCG, CP, LIPR, TSH ####[address] [address] #### PROL, FT3, T4, GLYHGB ####[address] [address] WBC Morphology NOT REPORTED Normal [facility] Comment on above: Performed By: #### C DP, HCG, CP, LIPR, TSH ####[address] [place] [address] #### PROL, FT3, T4, GLYHGB ####[address] [place] [address] Comp Metabolic Profon 2017 (cont.) Normal [facility] Comment on above: Result Comment: Aver age GFR for <20 years old not available.Chronic Kidney Disease: <60 mL/min/1.73sq mKidney failure: <15 mL/min/1.73sq meGFR calculated using average adult body mass. Additional eGFR calculator available at:http://www.[employer]/multiple_crcl_2011.htmPerformed at [facility] [address] [place] [address] Performed By: #### C DP, HCG, CP, LIPR, TSH ####[address] [address] #### PROL, FT3, T4, GLYHGB ####[address] [place] [address] Alanine aminotransferase (ALT) 13 U/L Normal 5-33 [facility] Comment on above: Performed By: #### C DP, HCG, CP, LIPR, TSH ####[facility] [place] [address] #### PROL, FT3, T4, GLYHGB ####[facility] [address] [place] [address] Albumin 4.6 g/dL Normal 3.5-5.2 [facility] Comment on above: Performed By: #### C DP, HCG, CP, LIPR, TSH ####[address] [address] #### PROL, FT3, T4, GLYHGB ####[facility] [address] [place] [address] Alkaline Phos 82 U/L Normal 35-104 [facility] Comment on above: Performed By: #### C DP, HCG, CP, LIPR, TSH ####[facility] [place] [address] #### PROL, FT3, T4, GLYHGB ####[address] [address] Anion gap 14 mmol/L Normal 9-17 [facility] Comment on above: Performed By: #### C DP, HCG, CP, LIPR, TSH ####[facility] [place] [address] #### PROL, FT3, T4, GLYHGB ####[address] [address] Aspartate aminotransferase (AST) 16 U/L Normal <32 [facility] Comment on above: Performed By: #### C DP, HCG, CP, LIPR, TSH ####[address] [address] #### PROL, FT3, T4, GLYHGB ####[address] [address] Bilirubin Ql (U) 0.29 mg/dL Low 0.3-1.2 [facility] Comment on above: Performed By: #### C DP, HCG, CP, LIPR, TSH ####[facility] [place] [address] #### PROL, FT3, T4, GLYHGB ####[address] [address] Calcium 9.8 mg/dL Normal 8.6-10.4 [facility] Comment on above: Performed By: #### C DP, HCG, CP, LIPR, TSH ####[address] [address] #### PROL, FT3, T4, GLYHGB ####[address] [address] Chloride 101 mmol/L Normal 98-107 [facility] Comment on above: Performed By: #### C DP, HCG, CP, LIPR, TSH ####[address] [address] #### PROL, FT3, T4, GLYHGB ####[address] [address] CO2 24 mmol/L Normal 20-31 [facility] Comment on above: Performed By: #### C DP, HCG, CP, LIPR, TSH ####[address] [address] #### PROL, FT3, T4, GLYHGB ####[address] [address] Creatinine 0.53 mg/dL Normal 0.50-0.90 [facility] Comment on above: Performed By: #### C DP, HCG, CP, LIPR, TSH ####[address] [address] #### PROL, FT3, T4, GLYHGB ####[address] [address] eGFR (non-black) Pediatric GFR requir es additional information. Refer to NKDEP website for Normal >60 [facility] Comment on above: Result Comment: calc ulator. Performed By: #### C DP, HCG, CP, LIPR, TSH ####[address] [address] #### PROL, FT3, T4, GLYHGB ####[facility] [place] [address] Glucose mass conc 82 mg/dL Normal 70-99 [facility] Comment on above: Performed By: #### C DP, HCG, CP, LIPR, TSH ####[facility] [place] [address] #### PROL, FT3, T4, GLYHGB ####[address] [address] Potassium molar conc 4.1 mmol/L Normal 3.7-5.3 [facility] Comment on above: Performed By: #### C DP, HCG, CP, LIPR, TSH ####[address] [address] #### PROL, FT3, T4, GLYHGB ####[address] [address] Protein 7.8 g/dL Normal 6.4-8.3 [facility] Comment on above: Performed By: #### C DP, HCG, CP, LIPR, TSH ####[facility] [place] [address] #### PROL, FT3, T4, GLYHGB ####[address] [address] Sodium 139 mmol/L Normal 135-144 [facility] Comment on above: Performed By: #### C DP, HCG, CP, LIPR, TSH ####[address] [address] #### PROL, FT3, T4, GLYHGB ####[address] [address] Urea nitrogen 7 mg/dL Normal 6-20 [facility] Comment on above: Performed By: #### C DP, HCG, CP, LIPR, TSH ####[address] [address] #### PROL, FT3, T4, GLYHGB ####[address] [place] [address] Albumin/Globulin Ratio NOT REPORTED Normal 1.0-2.5 [facility] Comment on above: Performed By: #### C DP, HCG, CP, LIPR, TSH ####[address] [address] #### PROL, FT3, T4, GLYHGB ####[address] [address] BUN/CRE Ratio NOT REPORTED Normal 9-20 [facility] Comment on above: Performed By: #### C DP, HCG, CP, LIPR, TSH ####[address] [address] #### PROL, FT3, T4, GLYHGB ####[address] [address] eGFR (non-black) NOT REPORTED Normal >60 [facility] Comment on above: Performed By: #### C DP, HCG, CP, LIPR, TSH ####[address] [address] #### PROL, FT3, T4, GLYHGB ####[address] [address] Staging: NOT REPORTED Normal [facility] Comment on above: Performed By: #### C DP, HCG, CP, LIPR, TSH ####[address] [address] #### PROL, FT3, T4, GLYHGB ####[facility] [place] [address] HCG Screen, Bloodon 05-31-19 18 HCG Qn Negative Normal NEG [facility] Comment on above: Result Comment: Spec imens with hCG levels near the threshold of the test (25 mIU/mL) may give a negative or indeterminate result. In such cases, another test should be performed with a new specimen in 48-72 hours. If early is suspected clinically in this setting, correlation with quantitative serum b-hCG level is suggested.Performed at [facility] [address] [place] [address] Performed By: #### C DP, HCG, CP, LIPR, TSH ####[facility] [place] [address] #### PROL, FT3, T4, GLYHGB ####[address] [address] Lipid Profileon 05-30-2017 Cholesterol 172 mg/dL Normal <200 [facility] Comment on above: Result Comment: Chol esterol Guidelines: <200 Desirable 200-240 Borderline >240 Undesirable Performed By: #### C DP, HCG, CP, LIPR, TSH ####[facility] [place] [address] #### PROL, FT3, T4, GLYHGB ####[address] [address] Cholesterol to HDL Ratio 2.5 {ratio} Normal <5 [facility] Comment on above: Performed By: #### C DP, HCG, CP, LIPR, TSH ####[facility] [place] [address] #### PROL, FT3, T4, GLYHGB ####[address] [place] [address] HDL Cholesterol 69 mg/dL Normal >40 [facility] Comment on above: Result Comment: HDL Guidelines: <40 Undesirable 40-59 Borderline >59 Desirable Performed By: #### C DP, HCG, CP, LIPR, TSH ####[facility] [place] [address] #### PROL, FT3, T4, GLYHGB ####[facility] [address] [place] [address] LDL Cholesterol 83 mg/dL Normal 0-130 [facility] Comment on above: Result Comment: LDL Guidelines: <100 Desirable 100-129 Near to/above Desirable 130-159 Borderline >159 UndesirableDirect (measured) LDL and calculated LDL are not interchangeable tests. Performed By: #### C DP, HCG, CP, LIPR, TSH ####[address] [place] [address] #### PROL, FT3, T4, GLYHGB ####[address] [place] [address] Triglyceride 99 mg/dL Normal <150 [facility] Comment on above: Result Comment: Trig lyceride Guidelines: <150 Desirable 150-199 Borderline 200-499 High >499 Very high Based on AHA Guidelines for fasting triglyceride, December 2011.Performed at [facility] [address] [place] [address] Performed By: #### C DP, HCG, CP, LIPR, TSH ####[facility] [place] [address] #### PROL, FT3, T4, GLYHGB ####[address] [place] [address] Cholesterol in VLDL mass conc NOT REPORTED Normal 1-30 [facility] Comment on above: Performed By: #### C DP, HCG, CP, LIPR, TSH ####[facility] [place] [address] #### PROL, FT3, T4, GLYHGB ####[facility] [address] [place] [address] PSYCHIATRIC EVALUATIONon PSYCHIATRIC EVALUATION [facility] [address] [place] [address] PSYCHIATRIC EVALUATIONPATIENT NAME: WALTER ANDRADE : 2000[facility] REC NO: [id number] ROOM: [address] [place] [address] NO: [id number] ADMIT DATE: 05/30/2017PROVIDER: Juan MontanaiCOMPREHENSIVE PSYCHIATRIC EVALUATIONHISTORY OF PRESENTING ILLNESS AND REASON FOR CURRENT ADMISSION: Thepatient is a 17-year-old female, who was having suicidal thoughts and plansto cut herself or overdose on medication or drink bleach and . Withthis, she is admitted to [facility] [place].PAST PSYCHIATRIC HISTORY: History of major depressive disorder. She saidshe was on Prozac for sometime when she was 12 and later she stopped takingit. She denies any drug and alcohol use.MEDICAL AND SURGICAL HISTORY: She denies any acute or chronic medicalproblems.ALLERGI ES: She denies any allergies.MENTAL STATUS EXAMINATION: At the time of discharge, the patient iscooperative. She has adequate psychomotor activity. She has adequaterapport. Her speech is within normal limits. Her mood is subjectivelysad, objectively appears to be depressed. She has appropriate affect. Thought process within normal limits. Thought content are predominantly ofdepression, lack of energy and motivation. She has suicidal thoughts andplans to kill herself. She states she has several different plans. Shewas afraid she is going to do so, that is why she requested for admission. She denies any homicidal thoughts or plans. She denies any hallucinationsor delusions. She is of average intelligence. She is oriented to time,place and person. Her memory to recent, remote, and immediate events arewithin normal limits. She has adequate attention and concentration. Herinsight and judgement are fair. Her abstraction is fair.DIAGNOSIS: Major depressive disorder, severe, recurrent without psychosis.TREATMENT AND PLAN:1. The patient is admitted and she will be treated with SSRIs.2. Admit her.3. Start her on medications.4. Stabilize her.ESTIMATED LENGTH OF STAY: 10 days.JUAN HENDERSONURTID: 05/30/2017 18:30:55 SI/[id number]_TJob#: [id number] Doc#: [id number]: Normal [facility] Thyroid Stim. Horm.on 2017 Thyroid stimulating hormone (TSH) 1.47 m[IU]/L Normal 0.30-5.00 [facility] Comment on above: Result Comment: Perf ormed at [facility] [address] [place] [address] Performed By: #### C DP, HCG, CP, LIPR, TSH ####[facility] [place] [address] #### PROL, FT3, T4, GLYHGB ####[facility] [address] [place] [address] *RAPID FLU AANDB BY ANYA Multani 04-14-2017 *RAPID FLU AANDB BY MOLECULAR Clinical Report: (D) Specimen: NASAL SWAB Collected: 04/14/2017 18:44 Status: Final Last Updated: 04/14/2017 21:20 (1) COLLECTION TIME NOT SPECIFIED No collection time noted on specimen or requisition. The collection time recorded is the time of receipt in the lab. FLUA RNA (Final) Negative FLUB RNA (Final) Negative Normal [facility] Comment on above: Order Comment: COLLE CTION TIME NOT SPECIFIED No collection time noted on specimen orrequisition. The collection time recorded is the time of receipt in thelab. Performed By: #### 3 1018 ####[facility] Testosterone, Freeon 1225-2 017 % Free Testosterone 1.9 % Normal [facility] Comment on above: Result Comment: Refe rence Range:Adult Females: 0.8 - 1.4TESTING PERFORMED AT:[employer] [place], [place] [address]XMZWWRTRUDI LUNA M.D. Performed By: #### T ESFR ####[address] [phone] Serum Free Testosterone 7.2 pg/mL Normal A [facility] Comment on above: Result Comment: Refe rence Range:Adult Females: 1.1 - 6.3TESTING PERFORMED AT:[employer], [id number] [place] [id number] LUNA M.D. Performed By: #### T ESFR ####[address] [phone] Testosterone, Freeon 1223-2 017 Testosterone, Serum Total 38 ng/dL Normal [facility] Comment on above: Result Comment: Refe rence Range:Adult Females Premenopausal 10 - 55 Postmenopausal 7 - 40TESTING PERFORMED AT:[employer], [id number] [place] [address]MWJMCXTRUDI LUNA M.D. Performed By: #### T ESFR ####[address] [phone] Testosterone, Freeon 1222-2 017 Sex Hormone Binding Globulin 23.7 nmol/L Normal [facility] Comment on above: Result Comment: Refe rence Range:Pubertal: 36.0 - 125.020 - 49y: 24.6 - 122.0>49y: 17.3 - 125.0TESTING PERFORMED AT:[employer] [place], [place] CAM LUNA M.D. Performed By: #### T ESFR ####[address] [phone] Hemoglobin A1con 03-03-2017 Hemoglobin A1c/Hemoglobin.total mass fraction (Bld) 5.0 % Normal 0.0-6.4 [facility] Comment on above: Performed By: #### H BA1C ####[address] [phone] Insulinon 03-02-2017 Insulin 9 uIU/mL Normal [facility] Comment on above: Result Comment: Refe rence RangePost 4-12 hour Fast Male Female 0-8 years 0-13 uIU/mL 0-13 uIU/mL >8 years 0-17 uIU/mL 0-17 uIU/mL2 hour Post Meal 7.6-26 uIU/mL 7.6-26 uIU/mL2 hour Post Glucose 15-53 uIU/mL 15-53 uIU/mL Testing Performed By: #### I NSUL ####[address] [address] [phone] T4,Freeon 03-02-2017 Thyroxine (T4) free 1.3 ng/dL Normal 0.8-1.4 [facility] Comment on above: Result Comment: New Reference Ranges - effective 01/01/09. Performed By: #### T 4FR ####[address] [phone] TSHon 03-02-2017 Thyroid stimulating hormone (TSH) 2.031 uIU/mL Normal 0.350-5.500 [facility] Comment on above: Performed By: #### T SH ####[address] [phone] Vitamin D 25 OHon 03-02-2017 25 OH Vitamin D 21 ng/mL Normal 20-50 [facility] Comment on above: Result Comment: Refe rence ranges provided by [facility] based onconsensus conferences and expert opinion:Level Characterization1-10 ng/mL Vitamin D kbggpalvrg36-57 ng/mL Suboptimal Vitamin D qtlota83-91 ng/mL Optimal Vitamin D status>80 ng/mL Potentially toxic Vitamin D effects Performed By: #### V 25DH ####[address] [phone] Comp Metabolic Panelon 03-01 Alanine aminotransferase (ALT) 16 U/L Normal 0-31 [facility] Comment on above: Performed By: #### C MP ####[address] [phone] Albumin 4.2 g/dL Normal 3.5-5.0 [facility] Comment on above: Performed By: #### C MP ####[address] [phone] Alkaline phosphatase (ALP) 82 U/L Normal 35-104 [facility] Comment on above: Performed By: #### C MP ####[address] [phone] Aspartate aminotransferase (AST) 19 U/L Normal 0-31 [facility] Comment on above: Performed By: #### C MP ####[address] [phone] Bili,Total 0.7 mg/dl Normal 0.0-1.0 [facility] Comment on above: Result Comment: Jake ature : 1 Day 1.0-6.0 mg/dl 2 Day 6.0-8.0 mg/dl 3-5 Day 10.0-15.0 mg/dl Performed By: #### C MP ####[address] [phone] Calcium 9.0 mg/dL Normal 7.6-11.0 [facility] Comment on above: Performed By: #### C MP ####[address] [phone] Chloride 106 mmol/L Normal 96-108 [facility] Comment on above: Performed By: #### C MP ####[address] [phone] CO2 24.9 mmol/L Normal 22.0-29.0 [facility] Comment on above: Performed By: #### C MP ####[address] [phone] Creatinine 0.65 mg/dL Normal 0.50-1.00 [facility] Comment on above: Result Comment: Jake ature 0.3-1.0 mg/dL Performed By: #### C MP ####[address] [phone] Glucose mass conc 79 mg/dL Normal 70-99 [facility] Comment on above: Result Comment: Tiffanie lindo for Diagnosis of Diabetes(Effective 08/17/10):Fasting specimen (no caloric intake for at least 8 hours). <100 mg/dl Normal 100-125 mg/dl Increased Risk for Diabetes >125 mg/dl Diagnostic for DiabetesRandom Glucose (any time of day without regard to last meal). >=200 mg/dl plus Classic Symptoms of Diabetes Performed By: #### C MP ####[address] [phone] Potassium molar conc 4.3 mmol/L Normal 3.3-5.1 [facility] Comment on above: Performed By: #### C MP ####[address] [phone] Protein 7.6 g/dL Normal 5.9-8.4 [facility] Comment on above: Performed By: #### C MP ####[address] [phone] Sodium 137 mmol/L Normal 133-145 [facility] Comment on above: Performed By: #### C MP ####[address] [phone] Urea nitrogen 9 mg/dL Normal 4-19 [facility] Comment on above: Performed By: #### C MP ####[facility] of [address] [phone] Hemoglobin A1con 03-01-2017 Hemoglobin A1c/Hemoglobin.total mass fraction (Bld) ----- Normal [facility] Comment on above: Result Comment: In D iagnosed Diabetes: > 8 Action suggested 7-8 Good Control 6-7 Near Normal Glycemia < 6 Non-diabetic level Diabetes Screenin.7-6.4% Prediabetic >6.5% Diabetic - should be confirmed with repeat HgA1c or fasting blood sugar. Performed By: #### H BA1C ####[facility] of [address] [phone] Progress Noteon 03-01-2017 Part Maker Authentication Interface Message Text Subjective: Walter Andrade is a 16 y.o. female with past medical history speechtherapy, depression and suicide attempt age 12y, migraine with aura (x1), andfamily history high cholesterol/stroke/DVT/ HTN/SARA/DM/fertility issues who wasreferred to endocrinology secondary to irregular menses, insulin resistance,elevated testosterone with concerns for PCOS in October 2015 at the age [id number]. She reported axillary hair and pubic hair around the age of 12-11y withbreast development at age 11y. She had menarche at age 10y. Menses were prettyregular until age [age]y when they became more irregular. She reported mensesanywhere from 29-101 days apart. She reported normal teen acne. She had neverseen derm and used OTC washes. She denied hirsutism. They reported she hadalways grown well in height. Her weight had been above average but the couple ofyears prior it was getting worse even though she was eating less per report. Shewas not active but recently started lifting weights. She has had stria but wasgetting new ones on her arms and trunk recently. She returned to clinic 10/27/15for OGTT and ACTH stimulation testing to rule out nonclassical CAH.She is accompanied by mother. She was last seen 10/21/2016. Denies any newdiagnosis, ER visits, or hospitalizations since her last visit.She started the metformin around December 13, 2015. She was taking 500mg po bid inthe morning (though she skips breakfast) and at dinner. Menses were more regularbut remained irregular at her visit 04/2016 at which time we increased metforminto 850mg po bid. She then reported compliance until school let out then shequit taking it. She said she was maybe taking it 2 times per month at her visit10/2016. She denied any reason except she was out of a routine and forgets.Menses were irregular again. She had a period June 07 then again September 27. Wediscussed extended release metformin but she wanted to continue bid dosing. Shesaid she started taking it more consistently but then stopped again for 2-3weeks when she started her job as she kept forgetting to take it. She restartedlate December. Menses remain irregular but she feels are getting more regularwhen she is taking the metformin. They last 4-5 days and are of variable flow.She is using period tracker jyoti on her phone. She had menses 10/22, 12/05, and01/30. She denies polydipsia or polyuria. No nocturnal drinking or nocturia. Nochange in hair or acne. She feels like her hair loss has improved but she stillloses more hair than she would like.She is now interested in starting HRT to assist with regulating her menses andin anticipation she may become sexually active down the road. She denies beingsexually active now. She has a boyfriend for the past 1-2 months.She reports good appetite but her energy has been down as she has been wantingto sleep more. She denies snoring but says she sleep talks. She denies feelingdepressed. She generally goes to bed at 10pm and gets up at 6am. [facility]. [facility] Both Destinzidy and mother report she knows what to do but she doesn't doit. She thinks she is eating healthier at college and has soup and salad bar alot. She is working now at [employer] at [employer] and she says she drinks thesugary drinks there all the time.Social History:She lives with parents, older brother, older and younger sisters. 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 She graduated high school 2017. [facility] [facility] with a minor in education. [facility].Past Medical History:Diagnosis Date Depression Migraine with aura Suicide attempt age 12yPatient Active Problem List Diagnosis Date Noted PCOS (polycystic ovarian syndrome) 12/10/2015 High serum testosterone 10/20/2015 Irregular menses 10/20/2015 Migraine with aura 06/09/2015 Migraine without aura 06/09/2015 Vision, loss, sudden 06/09/2015 Transient neurological symptoms 06/09/2015 Obesity (BMI 30-39.9) 06/09/2015 Hyperpigmented skin lesion 06/09/2015Current Outpatient PrescriptionsMedication Sig Dispense Refill metFORMIN (GLUCOPHAGE) 850 MG tablet Take 1 Tab (850 mg) by mouth 2 timesdaily 60 Tab 11 B Complex Vitamins (B-COMPLEX/B-12 PO) Take by mouth daily Cholecalciferol 2000 UNITS CAPS Take 2,000 Units by mouth daily IRON, FERROUS GLUCONATE, PO Take by mouth daily MAGNESIUM PO Take by mouthNo current facility-administered medications for this visit.Endocrine Medications:Metformin 850 mg po bid-not compliant at timesVitamin D 2000 units po daily-not compliantNo Known AllergiesReview of SystemsAll other systems reviewed and negative unless outlined above.Objective:BP 106/70 Pulse 84 Ht 163.2 cm Wt (!) 103 kg BMI 38.67 kg/m Bloodpressure percentiles are 33.4 % systolic and 68.2 % diastolic based on NHBPEP's4th Report.Wt Readings from Last 3 Encounters:03/01/17 (!) 103 kg (99 %, Z= 2.27)*10/21/16 (!) 105.8 kg (99 %, Z= 2.33)*04/15/16 (!) 103.7 kg (99 %, Z= 2.28) Growth percentiles are based on CDC 2-20 Years data.Ht Readings from Last 3 Encounters:03/01/17 163.2 cm (50 %, Z= -0.01)*10/21/16 163.3 cm (51 %, Z= 0.01)*04/15/16 162.8 cm (48 %, Z= -0.05) Growth percentiles are based on CDC 2-20 Years data.Body mass index is 38.67 kg/m .98 %ile (Z= 2.14) based on CDC 2-20 Years BMI-for-age data using vitals from03/01/2017.99 %ile (Z= 2.27) based on CDC 2-20 Years oujdyq-lcu-qgw data using vitals from03/01/2017.50 %ile (Z= -0.01) based on CDC 2-20 Years ofuawpt-awc-xhf data using vitalsfrom 03/01/2017.General appearance: WN/WD, NAD, pleasant and cooperativeHEENT: NC/AT. Nares without drainage. MMM without pharyngeal erythema orexudate.Eyes: Conjuctivae clear. PERRL.Cardiac: RRR without murmur, rub, or gallop. PT 2+ bilaterally.Lungs: CTA bilaterally without wheezes, rales, or rhonchi.Abdomen: Positive bowel sounds, soft, NT/ND. No organomegaly appreciated.Extremities : MAEE. No edema.Skin: Light thin hair above upper lip. Mild AN knuckles, posterior neck, andaxilla. Killian thin stria on her upper arms, trunk.Genitourinary: Deferred. (October 2015: Raul V pubic hair, Raul V breastdevelopment, shaved axillary hair, no clitoromegaly.)Neuro: Alert and oriented. No focal deficits appreciated.Psych: Pleasant. Appropriate eye contact. Good mood.Lab ReviewACTH stimulation Test (Date: 12/10/2015)--10/2016 she reported she ate at 5am themorning of this test 0 minutes 30 minutes 60 minutesACTH 23Cortisol (mcg/dL) 5.8 17.7 19.3ACTH stimulation Test (Date: 10/27/2015)--10/2016 she reported she ate at 5am themorning of this test 0 minutes 30 minutesA liborio (ng/dL) 87 143DHEA (ng/dL) 372 1120Cortisol (mcg/dL) 3.5 5480-EF-Tzyiyzigsxmi (ng/dL) 70 1095-VC-Vxxpcousoefv (ng/dL) 62 802Testosterone (ng/dL) 33 34OGTT: Oral Glucose Tolerance Test (Date: 10/27/2015)Sample Time (min) Meter Glucose Lab Glucose (mg/dL) Insulin (uIU/mL)0 86 85 2160 163 [id number] 93 101 118 Ref. Range 10/27/2015 08:45Hemoglobin A1C Latest Ref Range: 0.0 - 6.4 % 5.4hCG Quant Latest Units: mIU/ml <1Prolactin Latest Ref Range: 2.8 - 29.2 ng/mL 8.7Total Bilirubin Latest Ref Range: 0.0 - 1.0 mg/dl 0.5ALT Latest Ref Range: 0 - 31 U/L 20AST Latest Ref Range: 0 - 31 U/L 22Alkaline Phosphatase Latest Ref Range: 47 - 119 U/L 70Cholesterol Latest Ref Range: 0 - 199 mg/dL 159Triglyceride Latest Units: mg/dL 110HDL Cholesterol Latest Units: mg/dL 63LDL Cholesterol Latest Ref Range: 0 - 129 mg/dl 74VLDL Cholesterol Latest Units: mg/dl 22Sodium Latest Ref Range: 133 - 145 mEq/L 136Potassium Latest Ref Range: 3.3 - 5.1 mEq/L 4.1Chloride Latest Ref Range: 96 - 108 mEq/L 103Carbon Dioxide Latest Ref Range: 22.0 - 29.0 mEq/L 24.7BUN Latest Ref Range: 4 - 19 mg/dL 14Calcium Latest Ref Range: 7.6 - 11.0 mg/dL 9.1Protein, Total Latest Ref Range: 5.9 - 8.4 g/dL 7.1Albumin Latest Ref Range: 3.2 - 4.5 g/dL 4.0Creatinine Latest Ref Range: 0.50 - 1.00 mg/dL 0.6512am salivary cortisol <50 07/14/2015 at 10:28amtestosterone 48 (5-38) ng/dLfree testosterone 3.2 pg/mLandrostenedione 135 ng/dL17 OHP 83 ng/dLDHEAS 351.2 ug/dL (115-459)LH 3.2FSH 3.1insulin 20.6Glucose 88TSH 4.95Free T4 0.74CBC doneAssessment/Plan:Destin Andrade is a 16 y.o. female with past medical history speech therapy,depression and suicide attempt age 12y, migraine with aura (x1), and familyhistory high cholesterol/stroke/DVT/ HTN/SARA/DM/fertility issues who is followedin endocrinology secondary to irregular menses, insulin resistance, elevatedtestosterone with diagnosis of PCOS.She has clinical evidence of hyperandrogenism with mild hirsutism and irregularmenses. Additionally, she has biochemical evidence of hyperandrogenism withelevated testosterone. She underwent OGTT and ACTH stimulation testing forfurther evaluation 2015. The ACTH stimulation test was not diagnostic fornonclassical CAH. The OGTT revealed normal glucose tolerance, but she had arobust insulin response consistent with hyperinsulinemia. She started treatmentwith metformin December 2015.She is tolerating metformin well and had noticed some improvement in theregularity of her menses when she was taking metformin 500mg po bid. Weincreased her dose of metformin to 850mg po bid 04/2016 but she has not beencompliant with dosing for a prolonged period of time. She has not wanted tochange to XR metformin. We discussed the importance of diet, exercise in hertreatment regimen. Walter has history of migraine with aura, thus she is not agood candidate for HRT. She is now interested in HRT for contraception in thefuture and menses regulation. As migraine with aura is a contraindication andshe would be moved to an adult for PCOS management after today's visit, Selam she make an appointment with a durability technician to discuss risks andbenefits of all contraception methods so she may make the best decision for her.We discussed gynecology can also manage PCOS. SABINO was able to find 3gynecologists within 25miles of their home that accept their insurance. Mom wasfamiliar with one of them.We discussed the role of insulin resistance in PCOS and the risk of type 2diabetes. She has clinical and biochemical evidence of insulin resistanceputting her at risk for T2D. We discussed treatment and complications of type 2diabetes and importance of prevention. We discussed the importance of working tobreak this insulin resistance. We discussed the importance of exercise andweight loss in the treatment of insulin resistance. She should exercise for atleast 30 minutes daily with goal of 60minutes daily. [facility] going [facility]4 [facility] per [facility]. She saw the RD in October2015. Walter has made minor changes in her diet but I don't think she is fullycommitted at this time. We discussed decreasing but preferentially eliminatingall of the sugary [employer] beverages.I recommended they make appt with PCP to discuss and evaluate fatigue further.We will not obtain labs today as she is fasting and she has been more compliantwith treatment than in October. She will make appt with adult gynecology for PCOSfollow up and contraception discussion.Time spent in room and coordinating care minutes 40 minutes, >50% of time spentin counseling Normal [facility] *RAPID FLU AANDB BY ANYA Multani 02-08-2017 *RAPID FLU AANDB BY MOLECULAR Clinical Report: (D) Specimen: NASAL SWAB Collected: 02/08/2017 19:00 Status: Final Last Updated: 02/08/2017 21:03 FLUA RNA (Final) Negative FLUB RNA (Final) Negative Normal [facility] Comment on above: Performed By: #### 3 1018 ####[facility] Progress Noteon 10-21-2016 Part Maker Authentication Interface Message Text Subjective: Walter Andrade is a 16 y.o. female with past medical history speechtherapy, depression and suicide attempt age 12y, migraine with aura (x1), andfamily history high cholesterol/stroke/DVT/ HTN/SARA/DM/fertility issues who wasreferred to endocrinology secondary to irregular menses, insulin resistance,elevated testosterone with concerns for PCOS in October 2015 at the age [id number]. She reported axillary hair and pubic hair around the age of 12-11y withbreast development at age 11y. She had menarche at age 10y. Menses were prettyregular until age [age]y when they became more irregular. She reported mensesanywhere from 29-101 days apart. She reported normal teen acne. She had neverseen derm and used OTC washes. She denied hirsutism. They reported she hadalways grown well in height. Her weight had been above average but the couple ofyears prior it was getting worse even though she was eating less per report. Shewas not active but recently started lifting weights. She has had stria but wasgetting new ones on her arms and trunk recently. She returned to clinic 10/27/15for OGTT and ACTH stimulation testing to rule out nonclassical CAH.She is accompanied by mother. She was last seen 04/15/2016. Denies any newdiagnosis, ER visits, or hospitalizations since her last visit.She started the metformin around December 13, 2015. She was taking 500mg po bid inthe morning (though she skips breakfast) and at dinner. Menses were more regularbut remained irregular at her visit 04/2016 at which time we increased metforminto 850mg po bid. No medication side effect with the dose change. She reportscompliance until school let out then she quit taking it. She says she maybetakes it 2 times per month. She denies any reason except she is out of a routineand forgets. Menses are irregular again. She had a period June 07 then againJuly . They last 4-5 days and are of variable flow. She is using periodKaseya jyoti on her phone. She denies polydipsia or polyuria. No nocturnaldrinking or nocturia. No change in hair or acne. She feels like her hair losshas improved but she still loses more hair than she would like.She reports good energy, good appetite. She reports a sedentary lifestyle. Sheis busy with school work and school activities and does not have time forexercise. She has met with RD in the past. Both Walter and mother report sheknows what to do but she doesn't do it. She is working now at [employer] says eating more because of this. As she has more money with working, shewill buy soda, etc to eat and drink.Social History:She lives with parents, older brother, older and younger sisters. She is activein [employer] and [employer] band. She plays the latvian horn and trehealthtrackeret. Shewas in many extracurricular activities such as S[employer], academia challenge, studentcouncil, game club in high school. She graduated high school 2016. She will [employer] for school psychology with a minor in education.She will live on campus at [facility]. 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[employer].Past Medical History:Diagnosis Date Depression Migraine with aura Suicide attempt age 12yPatient Active Problem List Diagnosis Date Noted PCOS (polycystic ovarian syndrome) 12/10/2015 High serum testosterone 10/20/2015 Irregular menses 10/20/2015 Migraine with aura 06/09/2015 Migraine without aura 06/09/2015 Vision, loss, sudden 06/09/2015 Transient neurological symptoms 06/09/2015 Obesity (BMI 30-39.9) 06/09/2015 Hyperpigmented skin lesion 06/09/2015Current Outpatient PrescriptionsMedication Sig Dispense Refill metFORMIN (GLUCOPHAGE) 850 MG tablet Take 1 Tab (850 mg) by mouth 2 timesdaily 60 Tab 11 Cholecalciferol 2000 UNITS CAPS Take 2,000 Units by mouth daily IRON, FERROUS GLUCONATE, PO Take by mouth daily MAGNESIUM PO Take by mouth B Complex Vitamins (B-COMPLEX/B-12 PO) Take by mouth dailyNo current facility-administered medications for this visit.Endocrine Medications:Metformin 850 mg po bid-not compliantVitamin D 2000 units po daily-not compliantNo Known AllergiesReview of Systemsdeonna reports some new stretch grayson on her trunk. All other systems reviewed andnegative unless outlined above.Objective:BP 140/72 Pulse 96 Ht 163.3 cm Wt (!) 105.8 kg BMI 39.68 kg/i8Pufjlnhkixcni percentiles are 99.7 % systolic and 72.8 % diastolic based on NHBPEP's4th Report.Repeat BP with manual cuff 110/68Wt Readings from Last 3 Encounters:10/21/16 (!) 105.8 kg (99 %, Z= 2.33)*04/15/16 (!) 103.7 kg (99 %, Z= 2.28)*12/10/15 (!) 104.6 kg (99 %, Z= 2.30) Growth percentiles are based on [facility] 2-20 Years data.Ht Readings from Last 3 Encounters:10/21/16 163.3 cm (51 %, Z= 0.01)*04/15/16 162.8 cm (48 %, Z= -0.05)*12/10/15 162.9 cm (49 %, Z= -0.03) Growth percentiles are based on CDC 2-20 Years data.Body mass index is 39.68 kg/(m^2).99 %ile (Z= 2.21) based on CDC 2-20 Years BMI-for-age data using vitals from10/21/2016.99 %ile (Z= 2.33) based on CDC 2-20 Years qcclqr-fol-eqf data using vitals from10/21/2016.51 %ile (Z= 0.01) based on CDC 2-20 Years qqocxyr-bno-man data using vitals from10/21/2016.General appearance: WN/WD, NAD, pleasant and cooperativeHEENT: NC/AT. Nares without drainage. MMM without pharyngeal erythema orexudate.Eyes: Conjuctivae clear. PERRL.Cardiac: RRR without murmur, rub, or gallop. PT 2+ bilaterally.Lungs: CTA bilaterally without wheezes, rales, or rhonchi.Abdomen: Positive bowel sounds, soft, NT/ND. No organomegaly appreciated.Extremities : MAEE. No edema.Skin: Light thin hair above upper lip. Mild AN knuckles, posterior neck, andaxilla. Killian thin stria on her upper arms, trunk-can see some new thin stria ontrunk.Genitourinary: Deferred. (October 2015: Raul V pubic hair, Raul V breastdevelopment, shaved axillary hair, no clitoromegaly.)Neuro: Alert and oriented. No focal deficits appreciated.Psych: Pleasant. Appropriate eye contact. Good mood.Lab ReviewACTH stimulation Test (Date: 12/10/2015)--10/2016 she reported she ate at 5am themorning of this test 0 minutes 30 minutes 60 minutesACTH 23Cortisol (mcg/dL) 5.8 17.7 19.3ACTH stimulation Test (Date: 10/27/2015)--10/2016 she reported she ate at 5am themorning of this test 0 minutes 30 minutesA liborio (ng/dL) 87 143DHEA (ng/dL) 372 1120Cortisol (mcg/dL) 3.5 4167-DP-Bcwxpppppvpm (ng/dL) 70 8469-CM-Plhnxchzpbyl (ng/dL) 62 802Testosterone (ng/dL) 33 34OGTT: Oral Glucose Tolerance Test (Date: 10/27/2015)Sample Time (min) Meter Glucose Lab Glucose (mg/dL) Insulin (uIU/mL)0 86 85 2160 163 610383 93 101 118 Ref. Range 10/27/2015 08:45Hemoglobin A1C Latest Ref Range: 0.0 - 6.4 % 5.4hCG Quant Latest Units: mIU/ml <1Prolactin Latest Ref Range: 2.8 - 29.2 ng/mL 8.7Total Bilirubin Latest Ref Range: 0.0 - 1.0 mg/dl 0.5ALT Latest Ref Range: 0 - 31 U/L 20AST Latest Ref Range: 0 - 31 U/L 22Alkaline Phosphatase Latest Ref Range: 47 - 119 U/L 70Cholesterol Latest Ref Range: 0 - 199 mg/dL 159Triglyceride Latest Units: mg/dL 110HDL Cholesterol Latest Units: mg/dL 63LDL Cholesterol Latest Ref Range: 0 - 129 mg/dl 74VLDL Cholesterol Latest Units: mg/dl 22Sodium Latest Ref Range: 133 - 145 mEq/L 136Potassium Latest Ref Range: 3.3 - 5.1 mEq/L 4.1Chloride Latest Ref Range: 96 - 108 mEq/L 103Carbon Dioxide Latest Ref Range: 22.0 - 29.0 mEq/L 24.7BUN Latest Ref Range: 4 - 19 mg/dL 14Calcium Latest Ref Range: 7.6 - 11.0 mg/dL 9.1Protein, Total Latest Ref Range: 5.9 - 8.4 g/dL 7.1Albumin Latest Ref Range: 3.2 - 4.5 g/dL 4.0Creatinine Latest Ref Range: 0.50 - 1.00 mg/dL 0.6512am salivary cortisol <50 07/14/2015 at 10:28amtestosterone 48 (5-38) ng/dLfree testosterone 3.2 pg/mLandrostenedione 135 ng/dL17 OHP 83 ng/dLDHEAS 351.2 ug/dL (115-459)LH 3.2FSH 3.1insulin 20.6Glucose 88TSH 4.95Free T4 0.74CBC doneAssessment/Plan:Destin Andrade is a 16 y.o. female with past medical history speech therapy,depression and suicide attempt age 12y, migraine with aura (x1), and familyhistory high cholesterol/stroke/DVT/ HTN/SARA/DM/fertility issues who is followedin endocrinology secondary to irregular menses, insulin resistance, elevatedtestosterone with diagnosis of PCOS.She has clinical evidence of hyperandrogenism with mild hirsutism and irregularmenses. Additionally, she has biochemical evidence of hyperandrogenism withelevated testosterone. She underwent OGTT and ACTH stimulation testing forfurther evaluation 2015. The ACTH stimulation test was not diagnostic fornonclassical CAH. The OGTT revealed normal glucose tolerance, but she had arobust insulin response consistent with hyperinsulinemia. She started treatmentwith metformin December 2015.She is tolerating metformin well and had noticed some improvement in theregularity of her menses when she was taking metformin 500mg po bid. Weincreased her dose of metformin to 850mg po bid 04/2016 but she has not beencompliant with dosing. She has not wanted to change to XR metformin. Iquestioned Walter on her goals today and she said she wants to be healthy. Wediscussed the importance of diet, exercise, and medication compliance for thisto happen. She would like to continue with metformin therapy and she will workon improved compliance. Walter has history of migraine with aura, thus she isnot a good candidate for HRT.We discussed the role of insulin resistance in PCOS and the risk of type 2diabetes. She has clinical and biochemical evidence of insulin resistanceputting her at risk for T2D. We discussed treatment and complications of type 2diabetes and importance of prevention. We discussed the importance of working tobreak this insulin resistance. We discussed the importance of exercise andweight loss in the treatment of insulin resistance. She should exercise for atleast 30 minutes daily with goal of 60minutes daily. [facility] She saw the RD in October 2015. Walter has made minorchanges in her diet but I don't think she is fully committed at this time. Wediscussed seeing RD at next visit but they report they know what to do she justdoes not do it and prefer not to see RD again at this time.We will plan to see her back in follow up in 6 months, sooner if needed. We willnot obtain labs today as she has not been compliant with treatment.Time spent in room and coordinating care minutes 30 minutes, >50% of time spentin counseling Normal [facility] Vital Signs Date Time Vital Sign Value Performing Clinician Facility 11-05-2024 10:39-0400 Body mass index (BMI) [Ratio] 45.65 kg/m2 Natasha Gavin [employer].CNM Work Phone: [facility] 11-05-2024 10:39-0400 Body weight 121.75 kg Natasha Gavin [employer].CNM Work Phone: [facility] 11-05-2024 10:39-0400 Diastolic blood pressure 80 mm[Hg] Natasha Gavin [employer].CNM Work Phone: [facility] Comment on above: BP machine 11-05-2024 10:39-0400 Systolic blood pressure 127 mm[Hg] Natasha Gavin [employer].CNM Work Phone: [facility] Comment on above: BP machine 10-29-2024 14:51-0400 Body mass index (BMI) [Ratio] 45.18 kg/m2 Renetta Hernandez MD Work Phone: [facility] 10-29-2024 14:51-0400 Body weight 120.47 kg Renetta Hernandez MD Work Phone: [facility] 10-29-2024 14:51-0400 Diastolic blood pressure 80 mm[Hg] Renetta Hernandez MD Work Phone: [facility] 10-29-2024 14:51-0400 Systolic blood pressure 120 mm[Hg] Renetta Hernandez MD Work Phone: [facility] 10-22-2024 10:50-0400 Body mass index (BMI) [Ratio] 44.67 kg/m2 Bushra Roa MD Work Phone: [facility] 10-22-2024 10:50-0400 Body weight 119.11 kg Bushra Roa MD Work Phone: [facility] 10-22-2024 10:50-0400 Diastolic blood pressure 72 mm[Hg] Bushra Roa MD Work Phone: [facility] 10-22-2024 10:50-0400 Systolic blood pressure 112 mm[Hg] Bushra Roa MD Work Phone: [facility] 10-15-2024 11:14-0400 Body mass index (BMI) [Ratio] 44.23 kg/m2 Lima Kim [employer].CNM Work Phone: [facility] 10-15-2024 11:14-0400 Body weight 117.94 kg Lima Kim [employer].CNM Work Phone: [facility] 10-15-2024 11:14-0400 Diastolic blood pressure 68 mm[Hg] Lima Kim [employer].CNM Work Phone: [facility] 10-15-2024 11:14-0400 Systolic blood pressure 101 mm[Hg] Lima Kim [employer].CNM Work Phone: [facility] 10-08-2024 11:05-0400 Body mass index (BMI) [Ratio] 43.89 kg/m2 Bushra Roa MD Work Phone: [facility] 10-08-2024 11:05-0400 Body weight 117.03 kg Bushra Roa MD Work Phone: [facility] 10-08-2024 11:05-0400 Diastolic blood pressure 70 mm[Hg] Bushra Roa MD Work Phone: [facility] 10-08-2024 11:05-0400 Systolic blood pressure 107 mm[Hg] Bushra Roa MD Work Phone: [facility] 10-01-2024 14:51-0400 Body mass index (BMI) [Ratio] 44.26 kg/m2 Renetta Hernandez MD Work Phone: [facility] 10-01-2024 14:51-0400 Body weight 118.03 kg Renetta Hernandez MD Work Phone: [facility] 10-01-2024 14:51-0400 Diastolic blood pressure 80 mm[Hg] Renetta Hernandez MD Work Phone: [facility] 10-01-2024 14:51-0400 Systolic blood pressure 121 mm[Hg] Renetta Hernandez MD Work Phone: [facility] 09-24-2024 15:22-0400 Body mass index (BMI) [Ratio] 43 kg/m2 Renetta Hernandez MD Work Phone: [facility] 09-24-2024 15:22-0400 Body weight 114.67 kg Renetta Hernandez MD Work Phone: [facility] 09-24-2024 15:22-0400 Diastolic blood pressure 68 mm[Hg] Renetta Hernandez MD Work Phone: [facility] 09-24-2024 15:22-0400 Systolic blood pressure 102 mm[Hg] Renetta Hernandez MD Work Phone: [facility] 09-17-2024 15:35-0400 Body mass index (BMI) [Ratio] 43.21 kg/m2 Natasha Gavin [employer].CNM Work Phone: [facility] 09-17-2024 15:35-0400 Body weight 115.21 kg Natasha Gavin [employer].CNM Work Phone: [facility] 09-17-2024 15:35-0400 Diastolic blood pressure 74 mm[Hg] Natasha Gavin [employer].CNM Work Phone: [facility] 09-17-2024 15:35-0400 Systolic blood pressure 110 mm[Hg] Natasha Gavin [employer].CNM Work Phone: [facility] 09-03-2024 13:12-0400 Body mass index (BMI) [Ratio] 43.89 kg/m2 Natasha Gavin [employer].CNM Work Phone: [facility] 09-03-2024 13:12-0400 Body weight 117.03 kg Natasha Gavin [employer].CNM Work Phone: [facility] 09-03-2024 13:12-0400 Diastolic blood pressure 74 mm[Hg] Natasha Gavin [employer].CNM Work Phone: [facility] 09-03-2024 13:12-0400 Systolic blood pressure 118 mm[Hg] Natasha Gavin [employer].CNM Work Phone: [facility] 08-20-2024 11:03-0400 Body mass index (BMI) [Ratio] 42.87 kg/m2 Anahi Bruno MD Work Phone: [facility] 08-20-2024 11:03-0400 Body weight 114.31 kg Anahi Bruno MD Work Phone: [facility] 08-20-2024 11:03-0400 Diastolic blood pressure 70 mm[Hg] Anahi Bruno MD Work Phone: [facility] 08-20-2024 11:03-0400 Systolic blood pressure 110 mm[Hg] Anahi Bruno MD Work Phone: [facility] 08-08-2024 11:09-0400 Body mass index (BMI) [Ratio] 41.47 kg/m2 Lima Kim [employer].CNM Work Phone: [facility] 08-08-2024 11:09-0400 Body weight 110.59 kg Lima Kim [employer].CNM Work Phone: [facility] 08-08-2024 11:09-0400 Diastolic blood pressure 88 mm[Hg] Lima Plotgriselda [employer].CNM Work Phone: [facility] 08-08-2024 11:09-0400 Systolic blood pressure 124 mm[Hg] Lima Kim [employer].CNM Work Phone: [facility] 07-04-2024 15:02-0400 Body height 162.6 cm Adore Morales MD Work Phone: [facility] 07-04-2024 15:02-0400 Body mass index (BMI) [Ratio] 41.71 kg/m2 Adore Morales MD Work Phone: [facility] 07-04-2024 15:02-0400 Body temperature 98.01 [degF] Adore Morales MD Work Phone: [facility] 07-04-2024 15:02-0400 Body weight 110.22 kg [facility]ales MD [facility] 07-04-2024 15:02-0400 Diastolic blood pressure 60 mm[Hg] Adore Morales MD Work Phone: [facility] 07-04-2024 15:02-0400 Heart rate 81 /min Adore Morales MD Work Phone: [facility] 07-04-2024 15:02-0400 Respiratory rate 18 /min Adore Morales MD Work Phone: [facility] 07-04-2024 15:02-0400 SaO2% (BldA) [Mass fraction] 99 % Adore Morales MD Work Phone: [facility] 07-04-2024 15:02-0400 Systolic blood pressure 101 mm[Hg] Adore Morales MD Work Phone: [facility] 06-11-2024 14:25-0400 Body mass index (BMI) [Ratio] 41.16 kg/m2 Bushra Roa MD Work Phone: [facility] 06-11-2024 14:25-0400 Body weight 109.77 kg Bushra Roa MD Work Phone: [facility] 06-11-2024 14:25-0400 Diastolic blood pressure 60 mm[Hg] Bushra Roa MD Work Phone: [facility] 06-11-2024 14:25-0400 Systolic blood pressure 100 mm[Hg] Bushra Roa MD Work Phone: [facility] 05-22-2024 10:27-0400 Body mass index (BMI) [Ratio] 41.84 kg/m2 Cleo Portillo MD Work Phone: [facility] 05-22-2024 10:27-0400 Body weight 111.58 kg Cleo Portillo MD Work Phone: [facility] 05-22-2024 10:27-0400 Diastolic blood pressure 66 mm[Hg] Cleo Portillo MD Work Phone: [facility] 05-22-2024 10:27-0400 Systolic blood pressure 118 mm[Hg] Cleo Portillo MD Work Phone: [facility] 04-24-2024 08:35-0500 Body height 163.3 cm Dina Golconda [employer] Work Phone: [facility] 04-24-2024 08:35-0500 Body mass index (BMI) [Ratio] 42.87 kg/m2 Dina Golconda [employer].C[employer]ULF[employer] Work Phone: [facility] 04-24-2024 08:35-0500 Body weight 114.31 kg Dina Daniel [employer] Work Phone: [facility] 04-24-2024 08:35-0500 Diastolic blood pressure 80 mm[Hg] Dina Daniel [employer] Work Phone: [facility] 04-24-2024 08:35-0500 Systolic blood pressure 122 mm[Hg] Dina Golconda [employer] Work Phone: [facility] 03-23-2024 10:51-0500 Body mass index (BMI) [Ratio] 44.29 kg/m2 Adore Morales MD Work Phone: [facility] 03-23-2024 10:51-0500 Body temperature 99.39 [degF] Adore Morales MD Work Phone: [facility] 03-23-2024 10:51-0500 Body weight 117.03 kg Adore Morales MD Work Phone: [facility] 03-23-2024 10:51-0500 Diastolic blood pressure 72 mm[Hg] Adore Morales MD Work Phone: [facility] 03-23-2024 10:51-0500 Heart rate 90 /min Adore Morales MD Work Phone: [facility] 03-23-2024 10:51-0500 SaO2% (BldA) [Mass fraction] 100 % Adore Morales MD Work Phone: [facility] 03-23-2024 10:51-0500 Systolic blood pressure 131 mm[Hg] Adore Morales MD Work Phone: [facility] 07-20-2023 16:27-0400 Body height 162.6 cm Adore Morales MD Work Phone: [employer] 07-20-2023 16:27-0400 Body mass index (BMI) [Ratio] 41.88 kg/m2 Adore Morales MD Work Phone: [facility] 07-20-2023 16:27-0400 Body weight 110.68 kg Adore Morales MD Work Phone: [facility] 07-20-2023 16:27-0400 Diastolic blood pressure 75 mm[Hg] Adore Morales MD Work Phone: [employer] 07-20-2023 16:27-0400 Heart rate 111 /min Adore Morales MD Work Phone: [facility] [facility] [facility] 07-20-2023 16:27-0400 SaO2% (BldA) [Mass fraction] 99 % Adore Morales MD Work Phone: [facility] 07-20-2023 16:27-0400 Systolic blood pressure 130 mm[Hg] Adore Morales MD Work Phone: [facility] 07-16-2023 17:37-0400 Diastolic blood pressure 77 mm[Hg] Darius Franco MD Work Phone: [facility] 07-16-2023 17:37-0400 Heart rate 78 /min Darius Franco MD Work Phone: [facility] 07-16-2023 17:37-0400 Respiratory rate 16 /min Darius Franco MD Work Phone: [facility] [facility] 07-16-2023 17:37-0400 SaO2% (BldA) [Mass fraction] 97 % Darius Franco MD Work Phone: [facility] 07-16-2023 17:37-0400 Systolic blood pressure 130 mm[Hg] Darius Franco MD Work Phone: [facility] 07-16-2023 14:47-0400 Body temperature 98.1 [degF] Darius Franco MD Work Phone: [facility] 07-12-2023 09:03-0400 Body temperature 98.49 [degF] Vick Kincaid MD Work Phone: [facility] 07-12-2023 09:03-0400 Diastolic blood pressure 68 mm[Hg] Vick Kincaid MD Work Phone: [facility] 07-12-2023 09:03-0400 Heart rate 86 /min Vick Kincaid MD Work Phone: [facility] 07-12-2023 09:03-0400 Respiratory rate 18 /min Vick Kincaid MD Work Phone: [employer] 07-12-2023 09:03-0400 SaO2% (BldA) [Mass fraction] 94 % Vick Kincaid MD Work Phone: [employer] 07-12-2023 09:03-0400 Systolic blood pressure 101 mm[Hg] Vick Kincaid MD Work Phone: [employer] 07-11-2023 06:42-0400 Body height 162.6 cm Vick Kincaid MD Work Phone: [employer] 07-11-2023 06:42-0400 Body mass index (BMI) [Ratio] 42.91 kg/m2 Vick Kincaid MD Work Phone: [employer] 07-11-2023 06:42-0400 Body weight 113.4 kg Vick Kincaid MD Work Phone: [employer] 06-13-2023 08:00-0400 Body height 162.6 cm Ale Marinelli RN [facility] [employer] [facility] 06-13-2023 08:00-0400 Body mass index (BMI) [Ratio] 42.91 kg/m2 Ale Marinelli RN [facility] 06-13-2023 08:00-0400 Body weight 113.4 kg Ale Marinelli RN [facility] 04-06-2023 14:20-0500 Body mass index (BMI) [Ratio] 41.47 kg/m2 Ирина Cooper MD Work Phone: [facility] [facility] 04-06-2023 14:20-0500 Body temperature 99.1 [degF] Ирина Cooper MD Work Phone: [facility] [facility] 04-06-2023 14:20-0500 Body weight 109.59 kg Ирина Cooper MD Work Phone: [facility] [facility] 04-06-2023 14:20-0500 Diastolic blood pressure 76 mm[Hg] Ирина Cooper MD Work Phone: [facility] [facility] 04-06-2023 14:20-0500 Heart rate 94 /min Ирина Cooper MD Work Phone: [employer] 04-06-2023 14:20-0500 Respiratory rate 20 /min Ирина Cooper MD Work Phone: [facility] [facility] [facility] 04-06-2023 14:20-0500 SaO2% (BldA) [Mass fraction] 100 % Ирина Cooper MD Work Phone: [employer] 04-06-2023 14:20-0500 Systolic blood pressure 129 mm[Hg] Ирина Cooper MD Work Phone: [facility] [facility] [facility] 01-28-2023 14:02-0500 Body height 162.6 cm Vick Kincaid MD Work Phone: [employer] 01-28-2023 14:02-0500 Body mass index (BMI) [Ratio] 42.74 kg/m2 Vick Kincaid MD Work Phone: [facility] 01-28-2023 14:02-0500 Body temperature 97.59 [degF] Vick Kincaid MD [facility] 01-28-2023 14:02-0500 Body weight 112.95 kg Vick Kincaid MD [facility] 01-28-2023 14:02-0500 Diastolic blood pressure 64 mm[Hg] Vick Kincaid MD [facility] 01-28-2023 14:02-0500 Heart rate 91 /min Vick Kincaid MD Work Phone: [facility] 01-28-2023 14:02-0500 Respiratory rate 16 /min Vick Kincaid MD Work Phone: [facility] 01-28-2023 14:02-0500 Systolic blood pressure 114 mm[Hg] Vick Kincaid MD Work Phone: [facility] 08-08-2022 16:12-0400 Diastolic blood pressure 78 mm[Hg] Pcp Unknown [facility] 08-08-2022 16:12-0400 Heart rate 99 /min Pcp Unknown [facility] 08-08-2022 16:12-0400 SaO2% (BldA) [Mass fraction] 98 % Pcp Unknown [facility] 08-08-2022 16:12-0400 Systolic blood pressure 137 mm[Hg] Pcp Unknown [facility] 08-08-2022 14:44-0400 Body temperature 97.7 [degF] Pcp Unknown [facility] 08-08-2022 14:44-0400 Body weight 120 kg Pcp Unknown [facility] 08-08-2022 14:44-0400 Respiratory rate 16 /min Pcp Unknown [facility] 06-23-2022 13:47-0400 Body height 162.6 cm Adore Morales MD Work Phone: [facility] 06-23-2022 13:47-0400 Body mass index (BMI) [Ratio] 45.25 kg/m2 Adore Morales MD Work Phone: [employer] 06-23-2022 13:47-0400 Body weight 119.57 kg Adore Morales MD Work Phone: [employer] 06-23-2022 13:47-0400 Diastolic blood pressure 66 mm[Hg] Adore Morales MD Work Phone: [employer] 06-23-2022 13:47-0400 Heart rate 89 /min Adore Morales MD Work Phone: [employer] 06-23-2022 13:47-0400 SaO2% (BldA) [Mass fraction] 98 % Adore Morales MD Work Phone: [employer] 06-23-2022 13:47-0400 Systolic blood pressure 114 mm[Hg] Adore Morales MD [facility] En[facility] Encounter Date Encounter Type Care Provider Facility Start: 11-14-2024 ambulatory Anahi Vega Facility:[facility] Start: 11-08-2024 End: 11-08-2024 [facility]ulatory [facility] Start: 11-08-2024 End: 11-08-2024 Patient encounter procedure [facility] Comment on above: Population Health Na vigation Outreach ( to PCP/OB/) Start: 11-05-2024 End: 11-05-2024 Patient encounter procedure Natasha Gavin APRN.CNM Work Phone: OB/Gynecology Comment on above: Supervision of high risk in third trimester (HCC) (Primary Dx); 37 weeks gestation of (HCC); Obesity affecting in third trimester, unspecified obesity type (HCC); Postablative hypothyroidism; GBS bacteriuria; Depression during in third trimester (HCC) Start: 11-05-2024 End: 11-05-2024 ambulatory NATASHA GAVIN Facility:[facility] Start: 10-29-2024 End: 10-29-2024 Patient encounter procedure [employer] [facility] Comment on above: Obesity in (HCC) (Primary Dx); Supervision of high risk in third trimester (HCC); Obesity affecting in third trimester, unspecified obesity type (HCC) Obesity affecting pr egnancy in third trimester, unspecified obesity type (HCC) (Primary Dx); 36 weeks gestation of (HCC); Supervision of high risk in third trimester (HCC) Start: 10-29-2024 End: 10-29-2024 ambulatory NATASHA GAVIN Facility:[facility] Start: 10-22-2024 End: 10-22-2024 Office outpatient visit 15 minutes Bushra Roa MD Work Phone: OB/Gynecology Comment on above: 35 weeks gestation o f (HCC) (Primary Dx); Supervision of high risk in third trimester (HCC); Obesity affecting in third trimester, unspecified obesity type (HCC) Start: 10-22-2024 End: 10-22-2024 ambulatory ADORE MORALES Facility:[facility] Start: 10-15-2024 End: 10-15-2024 Patient encounter procedure Lima Mendelgriselda MONTENEGRON.CNM Work Phone: OB/Gynecology Comment on above: Supervision of high risk in third trimester (HCC) (Primary Dx); Obesity affecting in third trimester, unspecified obesity type (HCC); Hypothyroidism, unspecified type; Depression during in third trimester (HCC); 34 weeks gestation of (HCC); Pyelectasis of fetus on ultrasound (HCC); Anemia during in third trimester (HCC) Start: 10-15-2024 End: 10-15-2024 ambulatory LIMA KIM Facility:[facility] Start: 10-08-2024 End: 10-08-2024 Office outpatient visit 15 minutes Bushra Roa MD Work Phone: OB/Gynecology Comment on above: Supervision of high risk in third trimester (HCC) (Primary Dx); Obesity affecting in third trimester, unspecified obesity type (HCC); Hypothyroidism, unspecified type; Depression during in third trimester (HCC); 33 weeks gestation of (HCC); Anemia during in third trimester (HCC) Start: 10-08-2024 End: 10-08-2024 ambulatory BUSHRA ROA Facility:[facility] Start: 10-06-2024 End: 10-06-2024 Letter encounter Adore Morales MD Work Phone: [facility] Start: 10-01-2024 End: 10-01-2024 Patient encounter procedure Renetta Hernandez MD Work Phone: OB/Gynecology Comment on above: Supervision of high risk in third trimester (HCC) (Primary Dx); 32 weeks gestation of (HCC); Obesity affecting in third trimester, unspecified obesity type (HCC); Supervision of high risk in first trimester (HCC) Start: 10-01-2024 End: 10-01-2024 ambulatory ADORE MORALES Facility:[facility] Start: 09-24-2024 End: 09-24-2024 Patient encounter procedure Renetta Hernandez MD Work Phone: OB/Gynecology Comment on above: Supervision of high risk in third trimester (HCC) (Primary Dx); 31 weeks gestation of (HCC); Obesity affecting in third trimester, unspecified obesity type (HCC) Pyelectasis of fetus on ultrasound (HCC) (Primary Dx); Supervision of high risk in second trimester (HCC); 20 weeks gestation of (HCC); BMI 40.0-44.9, adult (HCC); Obesity in (HCC) Start: 09-24-2024 End: 09-24-2024 ambulatory RENETTA HERNANDEZ Facility:[facility] Start: 09-17-2024 End: 09-17-2024 ambulatory ADORE MORALES Facility:[facility] Start: 09-17-2024 End: 09-17-2024 Patient encounter procedure Natasha Gavin APRN.CNM Work Phone: OB/Gynecology Comment on above: Supervision of high risk in third trimester (HCC) (Primary Dx); 30 weeks gestation of (HCC); Obesity affecting in third trimester, unspecified obesity type (HCC); Hypothyroidism, unspecified type; Depression during in third trimester (HCC); Postablative hypothyroidism; GBS bacteriuria; Pyelectasis of fetus on ultrasound (HCC) Start: 09-17-2024 End: 09-17-2024 ambulatory ADORE MORALES Facility:[facility] Start: 09-05-2024 End: 11-05-2024 Follow-up encounter Natasha Gavin APRN.CNM Work Phone: OB/Gynecology Start: 09-03-2024 End: 09-03-2024 Patient encounter procedure Natasha Gavin APRN.CNM Work Phone: OB/Gynecology Comment on above: Supervision of high risk in third trimester (HCC) (Primary Dx); 28 weeks gestation of (HCC); Obesity affecting in third trimester, unspecified obesity type (HCC); Depression during in third trimester (HCC); Hypothyroidism, unspecified type; Rh negative state in antepartum period ([facility]); Need for vaccination Start: 09-03-2024 End: 09-03-2024 ambulatory ADORE MORALES Facility:[facility] Start: 08-21-2024 End: 09-06-2024 Follow-up encounter Lima Kim APRN.CNM Work Phone: OB/Gynecology Start: 08-20-2024 End: 08-20-2024 Patient encounter procedure Anahi Bruno MD Work Phone: OB/Gynecology Comment on above: Encounter for superv ision of other normal in second trimester (HCC) (Primary Dx); 26 weeks gestation of (HCC) Start: 08-20-2024 End: 08-20-2024 ambulatory LIMA KIM Facility:[facility] Start: 08-08-2024 End: 08-08-2024 Patient encounter procedure Lima Kim APRN.CNM Work Phone: OB/Gynecology Comment on above: Screening for diabet es mellitus (Primary Dx); Encounter for supervision of other normal in second trimester (HCC); Hypothyroidism, unspecified type; Depression during in second trimester (HCC) Start: 08-08-2024 End: 08-08-2024 ambulatory LIMA KIM Facility:[facility] Start: 07-09-2024 End: 07-09-2024 ambulatory DINA SANCHEZ Facility:[facility] Start: 07-04-2024 End: 07-04-2024 Office outpatient visit 15 minutes Adore Morales MD Work Phone: [facility] Comment on above: Lightheaded (Primary Dx); Hypothyroidism, unspecified type; Vitamin D deficiency; Vitamin B 12 deficiency; Acquired hypothyroidism; Current moderate episode of major depressive disorder without prior episode (HCC) Start: 07-04-2024 End: 07-04-2024 ambulatory ADORE MORALES Facility:[facility] Start: 06-13-2024 End: 06-13-2024 Telephone encounter Lima Kim AJM Work Phone: OB/Gynecology Comment on above: Question (OB Questio n) Start: 06-12-2024 End: 06-13-2024 Emergency department patient visit ADORE MORALES Facility:[facility] Start: 06-12-2024 End: 08-12-2024 Follow-up encounter Cleo Portillo MD Work Phone: OB/Gynecology Start: 06-11-2024 End: 06-11-2024 ambulatory CLEO PORTILLO Facility:[facility] Start: 06-11-2024 End: 06-11-2024 Office outpatient visit 15 minutes Bushra Roa MD Work Phone: OB/Gynecology Comment on above: 16 weeks gestation o f (Primary Dx); Supervision of high risk in first trimester; BMI 40.0-44.9, adult (HCC); Positive GBS test Start: 06-11-2024 End: 06-11-2024 ambulatory CLEO PORTILLO Facility:[facility] Start: 06-11-2024 End: 06-11-2024 Patient encounter procedure Whi Tech 1 [employer] [facility] Maternal Medicine Comment on above: BMI 40.0-44.9, adult (HCC); Supervision of high risk in first trimester; Severe obesity due to excess calories affecting , antepartum (HCC) Start: 05-24-2024 End: 05-25-2024 ambulatory Cleo Portillo MD Work Phone: OB/Gynecology Start: 05-24-2024 End: 05-25-2024 Patient encounter procedure Cleo Portillo MD Work Phone: OB/Gynecology Comment on above: Dental Referral Start: 05-22-2024 End: 05-22-2024 ambulatory CLEO PORTILLO Facility:[facility] Start: 05-22-2024 End: 05-22-2024 Patient encounter procedure Cleo Portillo MD Work Phone: OB/Gynecology Comment on above: BMI 40.0-44.9, adult (HCC) (Primary Dx); Supervision of high risk in first trimester; Severe obesity due to excess calories affecting , antepartum (HCC); Postablative hypothyroidism Start: 05-21-2024 End: 07-21-2024 Follow-up encounter Cleo Portillo MD Work Phone: OB/Gynecology Start: 05-17-2024 End: 05-22-2024 Telephone encounter Dina Sanchez [employer] Work Phone: OB/Gynecology Comment on above: Results Start: 05-15-2024 End: 05-15-2024 Telephone encounter Theodora Deluca MD Work Phone: OB/Gynecology Comment on above: Orders Start: 05-15-2024 End: 05-15-2024 ambulatory [place] Facility:[facility] Start: 05-15-2024 End: 05-15-2024 Patient encounter procedure Whi Tech 2 [employer] [facility] Maternal Medicine Comment on above: Encounter for antena richard screening for malformation using ultrasound (Primary Dx); 12 weeks gestation of Start: 04-24-2024 End: 06-24-2024 Follow-up encounter Dina Sanchez [employer]COOKER SULFITE Work Phone: OB/Gynecology Comment on above: Results Start: 04-24-2024 End: 04-24-2024 ambulatory [place] Facility:[facility] Start: 04-24-2024 End: 04-24-2024 Patient encounter procedure Dina Sanchez [employer]COOKER SULF[employer] Work Phone: OB/Gynecology Comment on above: with uncer tain dates, antepartum (Primary Dx); Screen for STD (sexually transmitted disease); 9 weeks gestation of ; Hypothyroidism, unspecified type; Supervision of high risk , antepartum; BMI 40.0-44.9, adult (HCC) Start: 04-07-2024 End: 04-09-2024 ambulatory Adore Morales MD Work Phone: [facility] Comment on above: Test Start: 04-07-2024 End: 04-09-2024 E-mail encounter from caregiver Adore Morales MD Work Phone: [facility] Start: 03-27-2024 End: 03-31-2024 Telephone encounter Adore Morales MD Work Phone: [facility] Comment on above: Discuss results test /procedures Start: 03-23-2024 End: 03-23-2024 ambulatory AALIYAH FRANK Facility:[facility] Start: 03-23-2024 End: 03-23-2024 Office outpatient visit 15 minutes Adore Morales MD Work Phone: [facility] Comment on above: Amenorrhea (Primary Dx); Post-surgical hypothyroidism; Less than 8 weeks gestation of ([facility]); Acquired hypothyroidism Start: 08-29-2023 End: 08-29-2023 Clinical Support [facility] Pathology [facility] Pathology Comment on above: Arrived Start: 07-21-2023 End: 07-21-2023 Patient encounter procedure Vick Kincaid MD Work Phone: [facility] Surgery General Comment on above: Postoperative follow -up (Primary Dx); Hypothyroidism, postsurgical; Change in voice Start: 07-21-2023 End: 07-21-2023 ambulatory VICK KINCAID Facility:[facility] Start: 07-20-2023 ambulatory ADORE MORALES Facility: [facility] Start: 07-20-2023 End: 07-20-2023 Office outpatient visit 15 minutes Adore Morales MD Work Phone: [facility] Comment on above: Acute nonintractable headache, unspecified headache type (Primary Dx); Vapes nicotine containing substance; Marijuana use; Medication management; Multiple thyroid nodules; Current moderate episode of major depressive disorder without prior episode (HCC) Start: 07-18-2023 [facility] Start: 07-18-2023 Follow-up encounter Stacy Liu [facility] Care Management/Patient Access Comment on above: Care Coordination; O utreach; ER follow-up; Health Maintenance Outreach; APPOINTMENT SCHEDULING; Medical Record Review Start: 07-16-2023 End: 07-16-2023 Emergency department patient visit Darius Franco MD Work Phone: [facility] Emergency Department Comment on above: Headache (Pt present s to ed with migraine since Tuesday since surgery (thyroidectomy). Pt recv'd Excedrin but no intermediate relief. -vision changes, +photosensitive, -n/v/d, -fever, cills) Start: 07-16-2023 Telephone encounter Dina Ochoa [facility] Line Comment on above: Pt Update Start: 07-14-2023 End: 07-14-2023 ambulatory Marly Vidal RN [facility] Line Comment on above: Headache Start: 07-14-2023 End: 07-14-2023 Office outpatient visit 25 minutes Kylah Alcala PA-C Work Phone: [facility] Comment on above: Acute nonintractable headache, unspecified headache type (Primary Dx); Acute cough Start: 07-13-2023 ambulatory Kajal Khan RN [facility] Care Management/Patient Access Start: 07-13-2023 Follow-up encounter Kajal Khan RN [facility] Care Management/Patient Access Comment on above: Care Coordination; H ospital follow-up Start: 07-11-2023 End: 07-12-2023 Evaluation and management of inpatient VICK KINCAID Facility:[facility] Start: 07-11-2023 End: 07-12-2023 Subsequent hospital visit by physician Vick Kincaid MD Work Phone: [facility] Comment on above: Multiple thyroid nod ules (Primary Dx) Start: 06-28-2023 End: 06-28-2023 Office outpatient visit 15 minutes Adore Morales MD Work Phone: [facility] Comment on above: Vitamin D deficiency (Primary Dx); Vitamin B 12 deficiency; Multiple thyroid nodules; Medication management Start: 06-21-2023 End: 06-21-2023 Clinical Support Bv Pathology Work Phone: [facility] Pathology Comment on above: Arrived Start: 06-21-2023 End: 06-21-2023 Patient encounter status Bv Pathology Work Phone: [facility] Start: 06-15-2023 Admission to [facility] Vick Kincaid MD Other Phone: [facility] Surgery General Comment on above: Question about Surge ry Start: 06-15-2023 ambulatory Adore Morales MD Other Phone: [facility] Comment on above: B12 and Vitamin D bl oodwork Start: 06-15-2023 Routine general [facility] examination at a health care facility Adore Morales MD Other Phone: [facility] Work Phone: Start: 06-13-2023 End: 06-13-2023 Nursing evaluation of patient and report Ale Marinelli RN [facility] Pre-Admission Testing Comment on above: Pre-op evaluation (P rimary Dx) Start: 06-13-2023 End: 06-13-2023 Pre-operative examination, unspecified Ale Marinelli RN [facility] Start: 05-30-2023 Telephone encounter Zackary Kincaid MD Other Phone: [facility] Surgery General Comment on above: Discuss results test /procedures Start: 05-13-2023 End: 05-13-2023 Office outpatient visit 15 minutes Vick Kincaid MD Work Phone: [facility] Surgery General Comment on above: Thyroid nodule (Prim tenzin Dx) Start: 04-17-2023 Letter encounter Adore Morales MD Work Phone: [facility] Start: 04-06-2023 End: 04-06-2023 Office outpatient visit 15 minutes Ирина Cooper MD Work Phone: [facility] Comment on above: Sore throat (Primary Dx) Start: 01-28-2023 End: 01-28-2023 Office consultation new/estab patient 60 min Vick Kincaid MD Work Phone: [facility] General Surgery Comment on above: Multiple thyroid nod ules (Primary Dx) Start: 11-05-2022 End: 11-05-2022 Office outpatient visit 15 minutes Adore Morales MD Work Phone: [facility] Medicine Comment on above: Ankle pain, unspecif ied chronicity, unspecified laterality (Primary Dx); Onychomycosis; Vitamin B 12 deficiency; Obesity, unspecified classification, unspecified obesity type, unspecified whether serious comorbidity present; Vitamin D deficiency; Multiple thyroid nodules; Arthralgia, unspecified joint; Medication management Start: 10-10-2022 Orders Only Adore Morales MD Work Phone: [facility] Start: 10-06-2022 End: 10-06-2022 Subsequent hospital visit by physician Op Ultrasound 1 [facility] Radiology Comment on above: DUB (dysfunctional u terine bleeding); PCOS (polycystic ovarian syndrome); Thyromegaly Start: 08-08-2022 End: 08-08-2022 Emergency department patient visit Daniel Arroyo [facility] Emergency 15 Start: 07-06-2022 Letter encounter Adore Morales MD Work Phone: [facility] Obstetrics/Gynecology Start: 07-05-2022 Letter encounter Jean Carlos goldsmith Start: 06-24-2022 Telephone encounter Brooke Peterson RN Work Phone: [facility] Comment on above: Discuss results test /procedures (REFERENCE 99) Start: 06-23-2022 End: 06-23-2022 Office outpatient visit 25 minutes Adore Morales MD Work Phone: [facility] Comment on above: DUB (dysfunctional u terine bleeding) (Primary Dx); PCOS (polycystic ovarian syndrome); Weight gain; History of 2019 novel coronavirus disease (COVID-19); Pharyngitis, unspecified etiology; Routine adult health maintenance; Hirsutism; Attention deficit hyperactivity disorder (ADHD), unspecified ADHD type; Vitamin D deficiency; Screening, lipid; Screen for STD (sexually transmitted disease); Urinary incontinence, unspecified type; Behavior concern; Vitamin B 12 deficiency Start: 06-23-2022 End: 06-23-2022 Patient encounter status Adore Morales MD Work Phone: [facility] Start: 03-24-2020 End: 03-24-2020 Subsequent hospital visit by physician Myrtle Cobb Work Phone: [facility] Comment on above: Anxiety; Concentration deficit; Thyromegaly Start: 05-30-2017 End: 06-03-2017 Evaluation and management of inpatient JUANCARMENCITA REGAN [facility] Start: 04-14-2017 End: 04-15-2017 Ambulatory HEATHER TIRADO Facility:[facility] Start: 03-01-2017 End: 03-02-2017 Ambulatory [facility] Start: 02-08-2017 End: 02-09-2017 Ambulatory HEATHER TIRADO Facility:[facility] Start: 02-08-2017 End: 02-09-2017 Ambulatory DEFAULT PHYSICIAN Facility:[facility] Start: 10-21-2016 End: 10-21-2016 Ambulatory [facility] Procedures Date Procedure Procedure Detail Performing Clinician Start: 11-05-2024 Urnls dip stick/tabl et rgnt non-auto w/o micrscp Natasha Gavin APRN.CNM Work Phone: Start: 10-29-2024 Urnls dip stick/tabl et rgnt non-auto w/o micrscp Renetta Hernandez MD Work Phone: Start: 10-29-2024 Us preg uterus after 1st trimest 03/14 gestation Natasha Gavin APRN.CNM Work Phone: Start: 10-22-2024 Urnls dip stick/tabl et rgnt non-auto w/o micrscp Bushra Roa MD Work Phone: Start: 10-15-2024 Urnls dip stick/tabl et rgnt non-auto w/o micrscp Lima Oglesbygriselda [employer] CAMER[employer].CNM Work Phone: Start: 10-08-2024 Urnls dip stick/tabl et rgnt non-auto w/o micrscp Bushra Roa MD Work Phone: Start: 09-24-2024 Us preg uterus after 1st trimest 03/14 gestation Natasha Romaine [employer].CNM Work Phone: Start: 09-03-2024 Antibody screen ADORE MORALES Comment on above: Order Comment: Speci men Type: BLOOD SPECIMENOrdering Facility: [facility] Address: [address] [place] [address] Performed By: #### T SPN ####CC MAIN BLOOD BANKCLIA [id number] [address] Start: 07-04-2024 25 hydroxy includes fractions if performed Adore Morales MD Work Phone: Start: 06-11-2024 Us preg uterus after 1st trimest 03/14 gestation Cleo Portillo MD Work Phone: Start: 05-15-2024 Antibody screen ADORE MORALES Comment on above: Order Comment: Speci men Type: BLOOD SPECIMENOrdering Facility: [facility] Address: [address] [place] [address] Performed By: #### T SPN ####CC MAIN BLOOD BANKCLIA [id number] [address] OF [place] Start: 05-15-2024 Us preg uterus after 1st trimest 03/14 gestation Dina Golconda [employer] Work Phone: Start: 04-24-2024 Us uterus l imited 1/> fetuses Dina Golconda [employer] Work Phone: Start: 03-23-2024 Urine test visual color cmprsn meths Adore Morales MD Work Phone: Start: 03-23-2024 Assay of thyroid sti mulating hormone tsh Adore Morales MD Work Phone: Start: 08-29-2023 Assay of thyroid sti mulating hormone tsh Vick Kincaid MD Work Phone: Start: 07-16-2023 Assay of magnesium Pecos na Littlejohn [employer] Work Phone: Start: 07-12-2023 Calcium total Ninfa Con te PA-C Work Phone: Start: 07-11-2023 End: 07-11-2023 THYROIDECTOMY, TOTAL Vick ramires MD Work Phone: Start: 07-11-2023 Urine test visual color cmprsn kelly Vick Kincaid MD Work Phone: Start: 06-21-2023 25 hydroxy includes fractions if performed Adore Morales MD Work Phone: Start: 06-21-2023 Antistreptolysin o screen Adore Morales MD Work Phone: Start: 05-19-2023 Unlisted chemistry procedure Vick Kincaid MD Work Phone: Start: 05-13-2023 Fine needle aspirati on bx w/o img gdn 1st lesion Vick Kincaid MD Work Phone: Start: 05-13-2023 Cytp eval fine needl e aspirate interp & report Vick Kincaid MD Work Phone: Start: 04-06-2023 Iaadiadoo streptococ cus group a Ирина Cooper MD Work Phone: Start: 01-28-2023 Cytp eval fine needl e aspirate interp & report Vick Kincaid MD Work Phone: Start: 01-28-2023 Fine needle aspirati on bx w/o img gdn 1st lesion Vick Kincaid MD Work Phone: Start: 10-06-2022 Us pelvic nonobstetr ic real-time image complete Adore Morales MD Work Phone: Start: 10-06-2022 Us soft tissue head & neck real time imge docm Adore Morales MD Work Phone: Start: 08-06-2022 Microscopic observat ion [Identifier] in Cervix by Cyto stain Mh 1 Start: 06-23-2022 25 hydroxy includes fractions if performed Adore Morales MD Work Phone: Start: 06-23-2022 Antibody herpes smpl x non-specific type test Adore Morales MD Work Phone: Start: 06-23-2022 Iaad ia hepatitis b surface antigen Adore Morales MD Work Phone: Start: 06-23-2022 Urine culture Adore kong MD Work Phone: Start: 06-23-2022 Urnls dip stick/tabl et rgnt auto w/o microscopy Adore Morales MD Work Phone: Start: 03-24-2020 Assay of free thyroxine Myrtle Cbob Work Phone: Start: 03-24-2020 Assay of thyroid sti mulating hormone tsh Myrtle Cobb Work Phone: Start: 03-24-2020 Blood count complete automated Myrtle Cobb Work Phone: Start: 03-24-2020 Comprehensive metabo lic panel Myrtle Cobb Work Phone: Start: 06-03-2017 DISCHARGE PATIENT SREEK ANTH INDURTI Start: 05-31-2017 EKG 12-LEAD JUAN INDURTI Start: 05-30-2017 CBC WITH AUTO DIFFERENTIAL JUAN INDURTI Start: 05-30-2017 COMPREHENSIVE METABO LIC PANEL JUAN INDURTI Start: 05-30-2017 HCG, SERUM, QUALITATIVE JUAN INDURTI Start: 05-30-2017 HEMOGLOBIN A1C SREEKANT H INDURTI Start: 05-30-2017 Lipid panel JUAN INDURTI Start: 05-30-2017 PROLACTIN JUAN INDURTI Start: 05-30-2017 T3, FREE JUAN INDURTI Start: 05-30-2017 T4 JUAN INDURTI Start: 05-30-2017 TSH WITHOUT REFLEX SUNNY KAITLYNN INDURTI Start: 05-30-2017 DIET GENERAL JUAN INDURTI Start: 05-30-2017 FULL CODE JUAN INDURTI Start: 05-30-2017 IP CONSULT TO HISTOR Y AND PHYSICAL JUAN INDURTI Start: 05-30-2017 PATIENT STATUS (DIRECT) JUAN INDURTI Start: 05-30-2017 Urinalysis JUAN INDURTI Start: 05-30-2017 URINE DRUG SCREEN SREEK ANTH INDURTI Start: 05-30-2017 VITAL SIGNS JUAN INDURTI Start: 05-30-2017 PATIENT STATUS (DIRECT) JUAN INDURTI Plan of Treatment Date Care Activity Detail Author Start: 2073 RSV Vaccine (1 - 1-dose 75+ series) RSV Vaccine (1 - 1-dose 75+ series) [facility] Start: 2073 RSV vaccine (adult) (1 - 1-dose 75+ series) RSV vaccine (adult) (1 - 1-dose 75+ series) [facility] Start: 2048 Shingles (RZV) Vaccine (1 of 2) Shingles (RZV) Vaccine (1 of 2) [facility] Start: 09-03-2034 Tetanus vaccination Tetanus (Td or Tdap) [facility] Start: 09-03-2034 Urine microalbumin profile DTaP,Tdap,Td Vaccine (9 - Td or Tdap) [facility] Start: 08-01-2030 Tetanus vaccination Tetanus (Td or Tdap) [facility] Start: 08-01-2030 Urine microalbumin profile DTaP,Tdap,Td Vaccine (8 - Td or Tdap) [facility] Start: 08-06-2025 Screening for malignant neoplasm of cervix Cervical Cancer Screening [facility] Start: 07-04-2025 Thyroid stimulating hormone measurement [facility] Start: 05-22-2025 Covid-19 Vaccine ( season) Covid-19 Vaccine ( season) [facility] Comment on above: Postponed from 11/13/2023 (Declined at t his time) Start: 03-23-2025 Thyroid stimulating hormone measurement TSH [facility] Start: 12-12-2024 Influenza vaccination Influenza Vaccine (#1) [facility] Start: 11-12-2024 Influenza vaccination [facility] Start: 11-05-2024 End: 11-05-2024 Patient encounter procedure OB/Gynecology Comment on above: NST NST/OB Start: 10-29-2024 End: 10-29-2024 Patient encounter procedure Maternal Medicine Comment on above: 36wk Growth Growth /OB Start: 10-22-2024 End: 01-21-2025 CBC W Auto Differential panel - Blood COMPLETE BLOOD COUNT AND DIFFERENTIAL Lab Routine Anemia during in third trimester (HCC) Expected: 10/22/2024, Expires: 01/21/2025 [facility] Work Phone: Comment on above: Expected: 10/22/2024, Expires: Start: 10-22-2024 End: 10-22-2024 Patient encounter procedure OB/Gynecology Comment on above: NST NST/OB Start: 10-15-2024 End: 01-14-2025 Thyrotropin [Units/volume] in Serum or Plasma THYROID STIMULATING HORMONE Lab Routine Hypothyroidism, unspecified type Expected: 10/15/2024, Expires: 01/14/2025 [facility] Work Phone: Comment on above: Expected: 10/15/2024, Expires: Start: 10-15-2024 End: 01-14-2025 Thyroxine (T4) free [Mass/volume] in Serum or Plasma T4 FREE/FREE THYROXINE Lab Routine Hypothyroidism, unspecified type Expected: 10/15/2024, Expires: 01/14/2025 [facility] Comment on above: Expected: 10/15/2024, Expires: Start: 10-15-2024 End: 10-15-2024 Patient encounter procedure OB/Gynecology Comment on above: NST NST/OB Start: 10-08-2024 End: 10-08-2024 Patient encounter procedure OB/Gynecology Comment on above: NST NST/OB Start: 10-01-2024 End: 10-01-2024 Patient encounter procedure OB/Gynecology Comment on above: NST/ NST/OB Start: 09-24-2024 End: 09-24-2024 Patient encounter procedure Maternal Medicine Comment on above: Growth Start: 09-17-2024 End: 09-17-2024 Patient encounter procedure 09/17/2024 3:15 PM EDT Routine Office Visit OB/Gynecology [address] [place] [address] Natasha Gavin APRN.CN [address] [place] [address] SAMI 30 WK OB/Gynecology Comment on above: SAMI 30 WK Start: 09-06-2024 End: 12-06-2024 GEST GLUC GILDA, 3-HR, 100 GM, FASTING GEST GLUC GILDA, 3-HR, 100 GM, FASTING Lab Routine Elevated glucose Expected: 09/06/2024, Expires: 12/06/2024 [facility] Work Phone: Comment on above: Expected: 09/06/2024, Expires: Start: 09-03-2024 End: 12-03-2024 THYROGLOBULIN ANTIBODY [facility] Comment on above: Expected: 09/03/2024, Expires: Start: 09-03-2024 End: 12-03-2024 TYPE + SCREEN [facility] Work Phone: Comment on above: Expected: 09/03/2024, Expires: Start: 09-03-2024 End: 09-03-2024 Patient encounter procedure 09/03/2024 1:15 PM EDT Routine Office Visit OB/Gynecology [address] [place] [address] Natasha Gavin APRN.CN [address] [place] [address] OB OB/Gynecology Comment on above: OB Start: 09-03-2024 End: 09-03-2024 ambulatory 09/03/2024 1:00 PM EDT Results Only [place] [facility] [address] [place] [address] Glucose Test [facility] Comment on above: Glucose Test Start: 08-31-2024 End: 08-31-2024 Patient encounter procedure 08/31/2024 9:00 AM EDT Office Visit [facility] [address] [place] [address] Adore Morales MD [address] [place] [address] [facility] Start: 08-28-2024 Thyroid stimulating hormone measurement TSH [facility] Start: 08-20-2024 End: 08-20-2024 Patient encounter procedure 08/20/2024 11:10 AM EDT Routine Office Visit OB/Gynecology [address] [place] [address] Anahi Gutierrez MD [address] [place] [address] Ob OB/Gynecology Comment on above: Ob Start: 08-08-2024 End: 11-07-2024 ANEMIA REFLEX PANEL ANEMIA REFLEX PANEL Lab Routine Encounter for supervision of other normal in second trimester (HCC) Expected: 08/08/2024, Expires: 11/07/2024 [facility] Comment on above: Expected: 08/08/2024, Expires: Start: 08-08-2024 End: 08-08-2025 GESTATIONAL GLUCOSE SCREEN, 1-HOUR, 50 GRAM, NON-FASTING GESTATIONAL GLUCOSE SCREEN, 1-HOUR, 50 GRAM, NON-FASTING Lab Routine Screening for diabetes mellitus Expected: 08/08/2024, Expires: 08/08/2025 [facility] Work Phone: Comment on above: Expected: 08/08/2024, Expires: Start: 08-08-2024 End: 08-08-2025 SYPHILIS TREPONEMAL W/REFLEX SYPHILIS TREPONEMAL W/REFLEX Lab Routine Encounter for supervision of other normal in second trimester (HCC) Expected: 08/08/2024, Expires: 08/08/2025 [facility] Comment on above: Expected: 08/08/2024, Expires: Start: 08-08-2024 End: 11-07-2024 Thyrotropin [Units/volume] in Serum or Plasma THYROID STIMULATING HORMONE Lab Routine Hypothyroidism, unspecified type Expected: 08/08/2024, Expires: 11/07/2024 [facility] Comment on above: Expected: 08/08/2024, Expires: Start: 08-08-2024 End: 11-07-2024 Thyroxine (T4) free [Mass/volume] in Serum or Plasma T4 FREE/FREE THYROXINE Lab Routine Hypothyroidism, unspecified type Expected: 08/08/2024, Expires: 11/07/2024 [facility] Comment on above: Expected: 08/08/2024, Expires: Start: 08-08-2024 End: 08-08-2024 Patient encounter procedure 08/08/2024 11:15 AM EDT Routine Office Visit OB/Gynecology [address] [place] [address] Lima Kim APRN.[facility] [address] [place] [address] OB OB/Gynecology Comment on above: OB Start: 07-09-2024 End: 07-09-2024 Patient encounter procedure Maternal Medicine Comment on above: Anatomy Anatomy/OB Start: 07-03-2024 End: 07-03-2024 Patient encounter procedure Maternal Medicine Comment on above: Anatomy Anatomy/OB Start: 06-20-2024 Thyroid stimulating hormone measurement TSH [facility] Start: 06-11-2024 End: 06-11-2024 Patient encounter procedure 06/11/2024 2:40 PM EDT Routine Office Visit OB/Gynecology [address] [place] [address] Renetta Hernandez MD [address] [place] [address] Anatomy/OB OB/Gynecology Comment on above: Anatomy/OB Start: 06-11-2024 End: 06-11-2024 Patient encounter procedure 06/11/2024 1:30 PM EDT Routine Office Visit Maternal Medicine [address] [place] [address] Early Anatomy Maternal Medicine Comment on above: Early Anatomy Start: 05-22-2024 End: 05-22-2025 OBSTETRIC ULTRASOUND WHI OBSTETRIC ULTRASOUND WHI Anc Imaging Routine BMI 40.0-44.9, adult ([facility]) Supervision of high risk in first trimester Severe obesity due to excess calories affecting , antepartum ([facility]) Expected: 05/22/2024, Expires: 05/22/2025 [facility] Work Phone: Comment on above: Expected: 05/22/2024, Expires: Start: 05-22-2024 End: 05-22-2024 Patient encounter procedure 05/22/2024 10:20 AM EDT Routine Office Visit OB/Gynecology [address] [place] [address] Cleo Portillo MD [address] [place] [address] New OB LMP ?? seen 04/17/24 at [facility]ks OB/Gynecology Comment on above: New OB LMP ?? seen 04/17/24 at [facility] 9 wks Start: 05-15-2024 End: 08-14-2024 Chromosome 21 trisomy [Presence] in Blood or Tissue by Cytogenetics [facility] Work Phone: Comment on above: Expected: 05/15/2024, Expires: Start: 05-15-2024 End: 05-15-2024 Patient encounter procedure 05/15/2024 11:00 AM EST Routine Office Visit [facility] [address] [place] [address] [facility] Comment on above: [facility] Start: 05-05-2024 End: 03-24-2025 Assay of thyroid stimulating hormone tsh TSH Lab Routine Acquired hypothyroidism Expected: 05/05/2024, Expires: 03/24/2025 [employer] Work Phone: Comment on above: Expected: 05/05/2024, Expires: Start: 04-24-2024 End: 07-24-2024 ANEMIA REFLEX PANEL ANEMIA REFLEX PANEL Lab Routine 9 weeks gestation of Expected: 04/24/2024, Expires: 07/24/2024 [facility] Work Phone: Comment on above: Expected: 04/24/2024, Expires: Start: 04-24-2024 End: 07-24-2024 Hemoglobin A1c in Blood HEMOGLOBIN A1C Lab Routine 9 weeks gestation of Expected: 04/24/2024, Expires: 07/24/2024 [facility] Comment on above: Expected: 04/24/2024, Expires: Start: 04-24-2024 End: 07-24-2024 Hepatitis B virus surface Ag [Presence] in Serum HEPATITIS B SURFACE ANTIGEN Lab Routine 9 weeks gestation of Expected: 04/24/2024, Expires: 07/24/2024 [facility] Comment on above: Expected: 04/24/2024, Expires: Start: 04-24-2024 End: 07-24-2024 Hepatitis C virus Ab [Presence] in Serum HEPATITIS C ANTIBODY IA WITH CONFIRMATION Lab Routine 9 weeks gestation of Expected: 04/24/2024, Expires: 07/24/2024 [facility] Comment on above: Expected: 04/24/2024, Expires: Start: 04-24-2024 End: 07-24-2024 HIV 1+2 Ab [Presence] in Serum or Plasma by Immunoassay HIV 1/2 COMBO WITH REFLEX TO DIFFERENTIATION Lab Routine 9 weeks gestation of Expected: 04/24/2024, Expires: 07/24/2024 [facility] Comment on above: Expected: 04/24/2024, Expires: Start: 04-24-2024 End: 04-24-2025 OBSTETRIC ULTRASOUND WHI OBSTETRIC ULTRASOUND WHI Anc Imaging Routine 9 weeks gestation of Expected: 04/24/2024, Expires: 04/24/2025 [facility] Comment on above: Expected: 04/24/2024, Expires: Start: 04-24-2024 End: 07-24-2024 RUBELLA IGG ANTIBODY RUBELLA IGG ANTIBODY Lab Routine 9 weeks gestation of Expected: 04/24/2024, Expires: 07/24/2024 [facility] Comment on above: Expected: 04/24/2024, Expires: Start: 04-24-2024 End: 07-24-2024 SYPHILIS TREPONEMAL W/REFLEX SYPHILIS TREPONEMAL W/REFLEX Lab Routine 9 weeks gestation of Expected: 04/24/2024, Expires: 07/24/2024 [facility] Comment on above: Expected: 04/24/2024, Expires: Start: 04-24-2024 End: 07-24-2024 Thyrotropin [Units/volume] in Serum or Plasma THYROID STIMULATING HORMONE Lab Routine 9 weeks gestation of Hypothyroidism, unspecified type Expected: 04/24/2024, Expires: 07/24/2024 [facility] Comment on above: Expected: 04/24/2024, Expires: Start: 04-24-2024 End: 07-24-2024 TYPE + SCREEN TYPE + SCREEN Blood Bank Routine 9 weeks gestation of Expected: 04/24/2024, Expires: 07/24/2024 [facility] Comment on above: Expected: 04/24/2024, Expires: Start: 11-13-2023 Covid-19 Vaccine () Covid-19 Vaccine ( season) [facility] Start: 10-04-2023 Screening for malignant neoplasm of cervix Pap Smear [facility] Comment on above: Postponed from 08/07/2023 (Appointment e xists) Start: 10-04-2023 End: 10-04-2023 Patient encounter procedure 10/04/2023 10:45 AM EDT Office Visit [facility] SENIOR OFFICER [address] [place] [address] Perfecto Cam MD [address] [place] [phone] [facility] SENIOR OFFICER Start: 08-21-2023 End: 10-21-2023 Assay of thyroid stimulating hormone tsh TSH Lab Routine Hypothyroidism, postsurgical Postoperative follow-up Expected: 08/21/2023, Expires: 10/21/2023 [facility] Work Phone: Comment on above: Expected: 08/21/2023, Expires: Start: 08-07-2023 Screening for malignant neoplasm of cervix [facility] Start: 07-28-2023 End: 07-28-2023 Patient encounter procedure [facility] Start: 07-22-2023 End: 07-22-2023 Patient encounter procedure 07/22/2023 9:00 AM EDT Office Visit [facility] General [address] [place] [phone] Vick Kincaid MD [address] [place] [phone] [facility] Start: 07-21-2023 End: 07-21-2023 Patient encounter procedure 07/21/2023 10:15 AM EDT Office Visit [facility] General [address] [place] [phone] Vick Kincaid MD [address] [place] [phone] [facility] Start: 07-20-2023 End: 07-20-2023 Patient encounter procedure 07/20/2023 4:20 PM EDT Office Visit [address] [address] Adore Morales MD [address] [place] [address] [facility] Start: 07-11-2023 End: 07-11-2023 Admission to same day surgery center [facility] [place] Comment on above: THYROIDECTOMY, TOTAL Start: 07-11-2023 Subsequent hospital visit by physician [facility] Start: 07-11-2023 End: 07-11-2023 THYROIDECTOMY, TOTAL [facility] Work Phone: Start: 06-28-2023 End: 06-28-2023 Telemedicine consultation with patient 06/28/2023 11:20 AM EDT Telemedicine [address] [address] Adore Morales MD [address] [place] [address] [facility] Start: 06-24-2023 Screening for Chlamydia trachomatis STI Screening (Age 18-24) [facility] Start: 06-16-2023 End: 06-15-2024 Antibody borrelia burgdorferi lyme disease LYME ANTIBODIES, IGG, IGM Lab Routine Arthralgia, unspecified joint Expected: 06/16/2023, Expires: 06/15/2024 [employer] Work Phone: Comment on above: Expected: 06/16/2023, Expires: Start: 06-16-2023 End: 06-15-2024 Antinuclear antibodies aaliyah [employer] MULTIPLEX PANEL Lab Routine Arthralgia, unspecified joint Expected: 06/16/2023, Expires: 06/15/2024 [employer] Work Phone: Comment on above: Expected: 06/16/2023, Expires: Start: 06-16-2023 End: 06-15-2024 Antistreptolysin o screen STREPTOLYSIN O ANTIBODY Lab Routine Arthralgia, unspecified joint Expected: 06/16/2023, Expires: 06/15/2024 [employer] Work Phone: Comment on above: Expected: 06/16/2023, Expires: Start: 06-16-2023 End: 06-15-2024 Assay of blood/uric acid URIC ACID Lab Routine Arthralgia, unspecified joint Expected: 06/16/2023, Expires: 06/15/2024 [employer] Work Phone: Comment on above: Expected: 06/16/2023, Expires: Start: 06-16-2023 End: 06-15-2024 CBC W Auto Differential panel - Blood COMPLETE BLOOD COUNT W/DIFF Lab Routine Arthralgia, unspecified joint Expected: 06/16/2023, Expires: 06/15/2024 [employer] Work Phone: Comment on above: Expected: 06/16/2023, Expires: Start: 06-16-2023 End: 06-15-2024 Cyclic citrullinated peptide antibody CYCLIC CITRULLINATED PEPTIDE,* Lab Routine Arthralgia, unspecified joint Expected: 06/16/2023, Expires: 06/15/2024 [employer] Work Phone: Comment on above: Expected: 06/16/2023, Expires: Start: 06-16-2023 End: 06-15-2024 Rheumatoid factor quantitative RHEUMATOID FACTOR Lab Routine Arthralgia, unspecified joint Expected: 06/16/2023, Expires: 06/15/2024 [employer] Work Phone: Comment on above: Expected: 06/16/2023, Expires: Start: 06-16-2023 End: 06-15-2024 Sedimentation rate rbc non-automated ERYTHROCYTE SEDIMENTATION RATE Lab Routine Arthralgia, unspecified joint Expected: 06/16/2023, Expires: 06/15/[address] [facility] Work Phone: Comment on above: Expected: 06/16/2023, Expires: Start: 05-13-2023 End: 05-13-2023 Patient encounter procedure 05/13/2023 1:30 PM EST Office Visit [address] [address] Vick Kincaid MD [address] [place] [phone] [facility] General [facility] Start: 01-28-2023 End: 01-28-2023 Patient encounter procedure 01/28/2023 2:00 PM EST Office Visit [address] [address] Vick Kincaid MD [address] [place] [phone] [facility] General [facility] Start: 12-23-2022 Vaccination for human papillomavirus [facility] Start: 12-12-2022 Influenza vaccination Influenza Vaccine (#1) [facility] Start: 12-11-2022 End: 05-12-2023 Hepatic function panel HEPATIC FUNCTION PANEL Lab Routine Medication management Onychomycosis Expected: 12/11/2022, Expires: 05/12/2023 [facility] Comment on above: Expected: 12/11/2022, Expires: Start: 11-12-2022 COVID-19 Vaccine () COVID-19 Vaccine () [facility] Start: 11-12-2022 Influenza vaccination Influenza Vaccine (#1) [facility] Start: 11-11-2022 End: 05-12-2023 Antibody borrelia burgdorferi lyme disease LYME ANTIBODIES, IGG, IGM Lab Routine Ankle pain, unspecified chronicity, unspecified laterality Arthralgia, unspecified joint Expected: 11/11/2022, Expires: 05/12/2023 [facility] Comment on above: Expected: 11/11/2022, Expires: Start: 11-11-2022 End: 05-12-2023 Antinuclear antibodies aaliyah [employer] MULTIPLEX PANEL Lab Routine Ankle pain, unspecified chronicity, unspecified laterality Arthralgia, unspecified joint Expected: 11/11/2022, Expires: 05/12/2023 [facility] Comment on above: Expected: 11/11/2022, Expires: Start: 11-11-2022 End: 05-12-2023 Antistreptolysin o screen STREPTOLYSIN O ANTIBODY Lab Routine Ankle pain, unspecified chronicity, unspecified laterality Arthralgia, unspecified joint Expected: 11/11/2022, Expires: 05/12/2023 [facility] Comment on above: Expected: 11/11/2022, Expires: Start: 11-11-2022 End: 05-12-2023 Assay of blood/uric acid URIC ACID Lab Routine Ankle pain, unspecified chronicity, unspecified laterality Arthralgia, unspecified joint Expected: 11/11/2022, Expires: 05/12/2023 [facility] Comment on above: Expected: 11/11/2022, Expires: Start: 11-11-2022 End: 05-12-2023 CBC W Auto Differential panel - Blood COMPLETE BLOOD COUNT W/DIFF Lab Routine Ankle pain, unspecified chronicity, unspecified laterality Arthralgia, unspecified joint Expected: 11/11/2022, Expires: 05/12/2023 [facility] Comment on above: Expected: 11/11/2022, Expires: Start: 11-11-2022 End: 05-12-2023 Cyclic citrullinated peptide antibody CYCLIC CITRULLINATED PEPTIDE,* Lab Routine Ankle pain, unspecified chronicity, unspecified laterality Arthralgia, unspecified joint Expected: 11/11/2022, Expires: 05/12/2023 [facility] Comment on above: Expected: 11/11/2022, Expires: Start: 11-11-2022 End: 05-12-2023 Rheumatoid factor quantitative RHEUMATOID FACTOR Lab Routine Ankle pain, unspecified chronicity, unspecified laterality Arthralgia, unspecified joint Expected: 11/11/2022, Expires: 05/12/2023 [facility] Work Phone: Comment on above: Expected: 11/11/2022, Expires: Start: 11-11-2022 End: 05-12-2023 Sedimentation rate rbc non-automated ERYTHROCYTE SEDIMENTATION RATE Lab Routine Ankle pain, unspecified chronicity, unspecified laterality Arthralgia, unspecified joint Expected: 11/11/2022, Expires: 05/12/2023 [facility] Comment on above: Expected: 11/11/2022, Expires: Start: 11-05-2022 End: 11-05-2022 Telemedicine consultation with patient 11/05/2022 8:40 AM EDT Telemedicine [address] [address] Adore Morales MD [address] [place] [address] [facility] Start: 09-23-2022 End: 03-21-2023 25 hydroxy includes fractions if performed VITAMIN D, 25-HYDROXY Lab Routine Vitamin D deficiency Expected: 09/23/2022 (Approximate), Expires: 03/21/2023 [facility] Comment on above: Expected: 09/23/2022 (Approximate), Expi res: 03/21/2023 Start: 09-23-2022 End: 03-21-2023 Cyanocobalamin vitamin b-12 VITAMIN B12 (CYANOCOBALAMIN) Lab Routine Vitamin B 12 deficiency Expected: 09/23/2022 (Approximate), Expires: 03/21/2023 [facility] Comment on above: Expected: 09/23/2022 (Approximate), Expi res: 03/21/2023 Start: 08-06-2022 End: 08-06-2022 Patient encounter procedure 08/06/2022 Office Visit Family [facility] Adore Morales MD [address] [place] [address] [facility] Start: 07-21-2022 Vaccination for human papillomavirus Human Papilloma (HPV) Vaccine (2 - 3-dose series) [facility] Start: 06-23-2022 End: 06-24-2023 US Pelvis US FEMALE PELVIS+BLADDER Imaging Routine DUB (dysfunctional uterine bleeding) PCOS (polycystic ovarian syndrome) Expected: 06/23/2022, Expires: 06/24/[address] [facility] Work Phone: Comment on above: Expected: 06/23/2022, Expires: Start: 10-17-2020 COVID-19 Vaccine (3 - Booster for Pfizer series) COVID-19 Vaccine (3 - Booster for Pfizer series) [facility] Start: 10-17-2020 COVID-19 Vaccine (3 - Pfizer series) COVID-19 Vaccine (3 - Pfizer series) [facility] Start: 09-12-2020 COVID-19 Vaccine (2 - Pfizer series) COVID-19 Vaccine (2 - Pfizer series) [facility] Start: 04-28-2020 DTaP/Tdap/Td vaccine (7 - Td) DTaP/Tdap/Td vaccine (7 - Td) [place], [place] Start: 04-21-2020 End: 04-21-2020 Office Visit 04/21/2020 Office Visit Family Medicine Myrtle Cobb DO [address] [place], [place] [id number] [facility] Start: 03-31-2020 End: 03-31-2020 Appointment 03/31/2020 Appointment Radiology Myrtle Cobb DO [address] [place] [address] [facility] Start: 11-13-2019 Influenza vaccination Flu vaccine (#1) [place], [place] Start: 2019 Screening for malignant neoplasm of cervix [facility] Start: 2017 Hepatitis A (HAV) Vaccine (1 of 2 - Risk 2-dose series) Hepatitis A (HAV) Vaccine (1 of 2 - Risk 2-dose series) [facility] Start: 2017 Hepatitis A (HAV) Vaccine (optional start 19+ years) Hepatitis A (HAV) Vaccine (optional start 19+ years) [facility] Start: 2016 Annual PCP Team Chronic Disease Visit Annual PCP Team Chronic Disease Visit [facility] Start: 2016 Anxiety Screening Anxiety Screening [facility] Start: 2016 Depression Screening Depression Screening [facility] Start: 2016 HIV screening HIV Screening [facility] Start: 2014 Screening for Chlamydia trachomatis Chlamydia screen [place], [place] Start: 2013 HIV screening HIV screen [place], [place] Start: 2012 Peds To Adult Transition Annual Assessment Peds To Adult Transition Annual Assessment [facility] Start: 2010 Peds To Adult Transition Initial Discussion Peds To Adult Transition Initial Discussion [facility] Start: 2009 HPV vaccine (1 - 2-dose series) HPV vaccine (1 - 2-dose series) [place], [place] Start: 2004 Pneumococcal 0-64 years Vaccine (1 of 1 - PPSV23) Pneumococcal 0-64 years Vaccine (1 of 1 - PPSV23) [place], [place] Start: 2004 Pneumococcal vaccination Pneumococcal Vaccine(s) (1 - PCV) [facility] Start: 2002 Varicella vaccine (2 of 2 - 2-dose childhood series) Varicella vaccine (2 of 2 - 2-dose childhood series) [place], [place] Start: 1998 COVID-19 Vaccine (#1) COVID-19 Vaccine (#1) [facility] Start: 1998 Hepatitis B vaccination Hepatitis B (HBV) Vaccine (1 of 3 - 3-dose series) [facility] Start: 1998 Hepatitis C screening Hepatitis C screen [place], [place] End: 03-12-2024 25 hydroxy includes fractions if performed VITAMIN D, 25-HYDROXY Lab Routine Vitamin D deficiency Medication management Routine adult health maintenance 1 Occurrences starting 06/16/2023 until 03/12/2024 [facility] Work Phone: Comment on above: 1 Occurrences starting 06/16/2023 until 03/12/2024 End: 06-15-2024 Assay of thyroid stimulating hormone tsh TSH Lab Routine Multiple thyroid nodules Medication management Routine adult health maintenance Fatigue, unspecified type 1 Occurrences starting 06/16/2023 until 06/15/2024 [employer] Work Phone: Comment on above: 1 Occurrences starting 06/16/2023 until 06/15/2024 Bacteria identified in Urine by Culture BACTERIAL CULTURE, URINE Microbiology Routine 9 weeks gestation of 04/24/2024 9:26 AM [facility] End: 03-12-2024 Basic metabolic 2000 panel - Serum or Plasma BASIC METABOLIC PANEL Lab Routine Medication management Routine adult health maintenance Fatigue, unspecified type 1 Occurrences starting 06/16/2023 until 03/12/2024 [employer] Work Phone: Comment on above: 1 Occurrences starting 06/16/2023 until 03/12/2024 Chlamydia trachomatis+Neisseria gonorrhoeae DNA [Presence] in Unspecified specimen by VISHNU with probe detection GONORRHEA/CHLAMYDIA NAAT Lab Routine 9 weeks gestation of 04/24/2024 9:26 AM [facility] End: 03-12-2024 Cyanocobalamin vitamin b-12 VITAMIN B12 (CYANOCOBALAMIN) Lab Routine Vitamin B 12 deficiency Medication management Routine adult health maintenance Fatigue, unspecified type 1 Occurrences starting 06/16/2023 until 03/12/2024 [employer] Work Phone: Comment on above: 1 Occurrences starting 06/16/2023 until 03/12/2024 Cytology examination - general CYTOLOGY,FINE NEEDLE ASPIRATIONS Anatomic Pathology Routine Multiple thyroid nodules Ordered: 01/28/2023 [employer] Work Phone: Comment on above: Ordered: 01/28/2023 Cytology examination - general CYTOLOGY,FINE NEEDLE ASPIRATIONS Anatomic Pathology Routine Thyroid nodule Ordered: 05/13/2023 [employer] Work Phone: Comment on above: Ordered: 05/13/2023 End: 08-24-2025 nonstress test NON-STRESS TEST Procedures Routine Supervision of high risk in third trimester (HCC) Obesity affecting in third trimester, unspecified obesity type (HCC) Once per week for 7 Occurrences starting 09/03/2024 until 08/24/2025 [facility] Comment on above: Once per week for 7 Occurrences starting 09/03/2024 until 08/24/2025 End: 03-12-2024 Hepatic function panel HEPATIC FUNCTION PANEL Lab Routine Medication management Routine adult health maintenance Fatigue, unspecified type 1 Occurrences starting 06/16/2023 until 03/12/2024 [employer] Work Phone: Comment on above: 1 Occurrences starting 06/16/2023 until 03/12/2024 End: 08-18-2025 OBSTETRIC ULTRASOUND WHI OBSTETRIC ULTRASOUND WHI Anc Imaging Routine Supervision of high risk in third trimester (HCC) Obesity affecting in third trimester, unspecified obesity type (HCC) Once per month for 3 Occurrences starting 09/03/2024 until 08/18/2025 [facility] Comment on above: Once per month for 3 Occurrences startin g 09/03/2024 until 08/18/2025 Surgical pathology procedure [employer] Work Phone: Comment on above: Release Upon Ordering for 1 Occurrences starting 07/11/2023, 1 completed Thyroidectomy subste rnal cervical approach THYROIDECTOMY, W/SUBSTERNAL THYROID; CERVICAL APPROACH Procedures Routine Multiple thyroid nodules Ordered: 07/11/2023 [employer] Comment on above: Ordered: 07/11/2023 THYROIDECTOMY, TOTAL THYROIDECTO MY, TOTAL Routine scheduled Multiple thyroid nodules [employer] Work Phone: TRICHOMONAS VAGINALI S NAAT TRICHOMONAS VAGINALIS NAAT Lab Routine with uncertain dates, antepartum Screen for STD (sexually transmitted disease) 04/24/2024 9:26 AM EST [facility] Unlisted chemistry procedure MISCELLANEOUS SEND OUT TEST Lab Routine Thyroid nodule 05/19/2023 9:20 AM EST [employer] Work Phone: Immunizations Immunization Date Immunization Notes Care Provider Alysha ware 09-03-2024 RHO(D) immune globul in- IV or IM Natasha Gavin APRN.CNM Work Phone: [facility] 09-03-2024 tetanus toxoid, redu wendie diphtheria toxoid, and acellular pertussis vaccine, adsorbed Natasha Gavin APRN.CN Work Phone: [facility] 03-23-2024 influenza, seasonal, injectable, preservative free Cleo Portillo MD Work Phone: [facility] 03-23-2024 influenza virus vacc ine, unspecified formulation Natasha Gavin APRN.CN Work Phone: [facility] 07-20-2023 Human Papillomavirus 9-valent vaccine Adore Morales MD Work Phone: [facility] 08-06-2022 Human Papillomavirus 9-valent vaccine 1 [facility] 08-06-2022 Pneumococcal conjuga te 20 valent (PCV20), polysaccharide [id number] conjugate, adjuvant, PF (URK=692) 1 [facility] 06-23-2022 Human Papillomavirus 9-valent vaccine Adore Morales MD Work Phone: [facility] 08-22-2020 Pfizer Monovalent (1 2+ yrs) SARS-COV-2 (COVID-19) vaccine, mRNA, spike protein, LNP, pres. free, 30 mcg/0.3mL dose (LIB=533) Adore Morales MD Work Phone: [facility] 08-01-2020 Pfizer Monovalent (1 2+ yrs) SARS-COV-2 (COVID-19) vaccine, mRNA, spike protein, LNP, pres. free, 30 mcg/0.3mL dose (CGK=[id number]) Adore Morales MD Work Phone: [facility] 08-01-2020 tetanus toxoid, redu wendie diphtheria toxoid, and acellular pertussis vaccine, adsorbed Adore Morales MD Work Phone: [facility] 06-16-2015 meningococcal polysaccharide (groups A, C, Y and W-135) diphtheria toxoid conjugate vaccine (MCV4P) Adore Morales MD Work Phone: [facility] 04-28-2010 meningococcal polysaccharide (groups A, C, Y and W-135) diphtheria toxoid conjugate vaccine (MCV4P) Adore Morales MD Work Phone: [facility] 04-28-2010 tetanus toxoid, redu wendie diphtheria toxoid, and acellular pertussis vaccine, adsorbed Adore Morales MD Work Phone: [facility] 04-20-2002 diphtheria, tetanus toxoids and acellular pertussis vaccine, unspecified formulation Adore Morales MD Work Phone: [facility] 04-20-2002 measles, mumps and rubella virus vaccine Adore Morales MD Work Phone: [facility] 04-20-2002 poliovirus vaccine, inactivated Adoer Morales MD Work Phone: [facility] 04-17-2001 varicella virus vaccine Diego Morales MD Work Phone: [facility] 02-09-2000 diphtheria, tetanus toxoids and acellular pertussis vaccine, unspecified formulation Adore Morales MD Work Phone: [facility] 02-09-2000 haemophilus influenz ae type b conjugate and Hepatitis B vaccine Adore Morales MD Work Phone: [facility] 07-10-1999 measles, mumps and rubella virus vaccine Adore Morales MD Work Phone: [facility] 07-10-1999 poliovirus vaccine, unspecified formulation Adore Morales MD Work Phone: [facility] 04-17-1999 hepatitis B vaccine, pediatric or pediatric/adolescent dosage Adore Morales MD Work Phone: [facility] 1998 diphtheria, tetanus toxoids and pertussis vaccine Adore Morales MD Work Phone: [facility] 1998 haemophilus influenz ae type b vaccine, conjugate unspecified formulation Adore Morales MD Work Phone: [facility] 1998 diphtheria, tetanus toxoids and pertussis vaccine Adore Morales MD Work Phone: [facility] 1998 haemophilus influenz ae type b vaccine, conjugate unspecified formulation Adore Morales MD Work Phone: [facility] 1998 poliovirus vaccine, unspecified formulation Adore Morales MD Work Phone: [facility] 1998 diphtheria, tetanus toxoids and pertussis vaccine Adore Morales MD Work Phone: [facility] 1998 haemophilus influenz ae type b vaccine, conjugate unspecified formulation Adore Morales MD Work Phone: [facility] 1998 poliovirus vaccine, unspecified formulation Adore Morales MD Work Phone: [facility] 1998 hepatitis B vaccine, pediatric or pediatric/adolescent dosage Adore Morales MD Work Phone: [facility] 1998 hepatitis B vaccine, pediatric or pediatric/adolescent dosage Adore Morales MD Work Phone: [facility] Payers Date Payer Category Payer Self-pay 2024 Private Health [place] [address] [id number] 2024 Unknown UNKNOWN 2022 Medicaid [id number] 2022 [facility] [id number] 2022 Medicaid [id number] 2020 Unknown BCBS BCBS OUT OF STATE [id number] 2020-Present [address] [place] [address] [id number] 2014 Unknown [id number] 1998 Unknown [id number] 1069 1998 Unknown [id number] 732 1998 Unknown [id number] 732 1998 Unknown [id number] 732 1998 Unknown [id number]. 732 1998 Unknown [id number]. 732 1998 Unknown [id number] 732 1998 Unknown [id number]. 732 1998 Unknown [id number] 732 Unknown Unknown [id number] Unknown [id number] Social History Date Type Detail Facility Start: 03-24-2020 Tobacco smoking status NHIS Current some day smoker [place] History of tobacco use Cigarette Sm[place] Start: 03-24-2020 End: 01-28-2023 Tobacco use and exposure Never used [place] Start: 03-24-2020 End: 07-04-2024 Alcohol intake Current drinker of alcohol (finding) [place] Start: 03-24-2020 History SDOH Alcohol Frequency 4 [place] Start: 03-24-2020 History SDOH Alcohol Binge 3 [place] Start: 03-24-2020 Tobacco Comment only when she is drinking [place] Start: 2000 Sex Assigned At Not on file [place] Start: 06-13-2022 End: 06-23-2022 Exposure to SARS-CoV-2 (event) Not sure [place] Start: 06-23-2022 End: 01-28-2023 Tobacco smoking status NHIS Smokes tobacco daily [facility] Tobacco smoking consumption unknown [facility] Start: 08-06-2022 End: 05-15-2024 Gender identity Not [facility] Start: 01-28-2023 Tobacco Comment THC [facility] Start: 08-06-2022 End: 05-15-2024 History of Social function [facility] Within the last year , have you been afraid of your partner or ex-partner? No [facility] Are you now , , , , never or living with a partner? Never [employer] Work Phone: How hard is it for y ou to pay for the very basics like food, housing, medical care, and heating Not very hard [employer] Work Phone: Start: 06-16-2020 Adolescent depression screening assessment 0 [facility] Do you feel stress - tense, restless, nervous, or anxious, or unable to sleep at night because your mind is troubled all the time - these days [OSQ] Only a little [employer] Work Phone: (I/We) worried rochelle er (my/our) food would run out before (I/we) got money to buy more. Sometimes true [employer] Work Phone: The food that (I/we) bought just didn't last, and (I/we) didn't have money to get more. Never true [facility] Start: 08-06-2022 Education 21 [employer] Work Phone: Start: 06-13-2023 Tobacco Comment THC , Nicotine vape [employer] Work Phone: Start: 06-13-2023 Alcohol Comment occasional [employer] Work Phone: Start: 06-28-2023 End: 06-11-2024 Tobacco smoking status ILIS Ex-smoker [facility] Start: 06-28-2023 End: 08-18-2023 Tobacco use and exposure User of smokeless tobacco [facility] Start: 06-28-2023 Alcohol Comment Social/Special Occasion [facility] How often to you hav e a drink containing alcohol? Monthly or less [facility] How many standard drinks containing alcohol do you have on a typical day? 1 or 2 [facility] How often do you hav e 6 or more drinks on 1 occasion? Never [facility] Start: 2000 Sex assigned at Female [facility] Start: 06-16-2020 End: 06-11-2024 Tobacco use and exposure Former smokeless tobacco user [facility] Start: 04-24-2024 End: 11-05-2024 Alcoholic beverage intake Ex-drinker (finding) [facility] Start: 04-23-2024 Education 13 [facility] Start: 02-29-2024 [facility] Start: 04-23-2024 Gender identity Identifies as female gender (finding) [facility] Start: 04-23-2024 Sexual orientation Bisexual (finding) [facility] Start: 04-21-2022 Sex Female (finding) [facility] Start: 03-23-2024 End: 07-04-2024 Details of drug misuse behavior Misuses drugs (finding) [facility] Start: 03-23-2024 End: 07-04-2024 Details of drug misuse behavior Cannabis (substance) [facility] Start: 03-23-2024 End: 07-04-2024 Details of drug misuse behavior 7 uses per week [facility] Start: 03-23-2024 End: 07-04-2024 History of sexual behavior Currently not sexually active [facility] The thought of tatyi ng myself has occurred to me Hardly ever [facility] Clinical Notes 06-23-2022 to 11-09-2024 Rye Tobias - 11/08/2024 10:56 AM EDTPrenatal Quick Notes - Natasha Gavin APRN.[facility] - 11/05/2024 10:56 AM Natasha Mix APRN.[facility] - 11/05/2024 10:56 AM EDTPatient InstructionsAttachments Note Date & Type Note Facility 11-09-2024 Note HNO ID: [id number] Author: REY TOBIAS, ? Service: ? Author Type: Patient Camera Repairer Type: Progress Notes Filed: 11/09/2024 09:38 Note Text: POPULATION HEALTH NAVIGATION OUTREACH Action/FYI 3rd attempt left message to add criminal legal assistant to ob provider field Reason for Outreach Medicaid OB/Peds Care Gaps due: to PCP Visit Patient Contacted: Unable or unnecessary to reach patient: Unable to reach patient Left message Navigation Signature: Rey Tobias Population Health Navigator November 09, 2024 9:37 AM [facility] 11-08-2024 Note HNO ID: [id number] Author: REY TOBIAS, ? Service: ? Author Type: Patient Camera Repairer Type: Progress Notes Filed: 11/08/2024 10:58 Note Text: POPULATION HEALTH NAVIGATION OUTREACH Action/FYI Left message to add criminal legal assistant to OB provider field, verify/est pcp My chart sent Reason for Outreach Medicaid OB/Peds Care Gaps due: to PCP Visit Patient Contacted: Unable or unnecessary to reach patient: Unable to reach patient Left message MyChart message sent Navigation Signature: Rey Tobias Population Health Navigator November 08, 2024 10:58 AM [facility] 11-08-2024 History of Present illness Narrative POPULATION HEALTH NAVIGATION OUTREACH Action/FYI Left message to add criminal legal assistant to OB provider field, verify/est pcp My chart sent Reason for Outreach Medicaid OB/Peds Care Gaps due: to PCP Visit Patient Contacted: Unable or unnecessary to reach patient: Unable to reach patient Left message MyChart message sent Navigation Signature: Rey Tobias Population Health Navigator November 08, 2024 10:58 AM documented in this encounter [facility] 11-08-2024 Note Patient Outreach (NE TNAV) WALTER ANDRADE ([id number]) 2000 F Date Time Provider Department 11/08/24 REY TOBIAS NETDUNIAV During your visit today, we recorded the following information about you: Rey Tobias 11/08/2024 10:58 AM Signed POPULATION HEALTH NAVIGATION OUTREACH Action/FYI Left message to add criminal legal assistant to OB provider field, verify/est pcp My chart sent Reason for Outreach Medicaid OB/Peds Care Gaps due: to PCP Visit Patient Contacted: Unable or unnecessary to reach patient: Unable to reach patient Left message FileStringhart message sent Navigation Signature: Rey Tobias Population Health Navigrose November 08, 2024 10:58 AM Rey Tobias 11/09/2024 9:38 AM Signed POPULATION HEALTH NAVIGATION OUTREACH Action/FYI 3rd attempt left message to add criminal legal assistant to ob provider field Reason for Outreach Medicaid OB/Peds Care Gaps due: to PCP Visit Patient Contacted: Unable or unnecessary to reach patient: Unable to reach patient Left message Navigation Signature: Rey Tobias Population Health Navigator November 09, 2024 9:37 AM Allergies As of Date: 11/08/2024 (No Known Allergies) Date Reviewed: 11/05/2024 Reviewed by: Chela Padron LPN - Fully Assessed Reason for Visit: Population Health Navigation Outreach [3910] Cmt: to PCP/OB Prescriptions as of 11/09/2024 - Breast Pump Use as directed - ascorbic acid, vitamin C, (VITAMIN C) 500 mg tablet Take 1 tablet by mouth every other day. - ferrous sulfate 325 mg (65 mg iron) tablet Take 1 tablet by mouth every other day. - [id number]-[id number]-vfosh acid (PRENATA) 29 mg iron- 1 mg chew Take 1 tablet by mouth once daily. - levothyroxine (SYNTHROID) 200 mcg tablet Take 1 tablet by mouth daily before breakfast. - aspirin, enteric coated (ECOTRIN LOW STRENGTH) 81 mg EC tablet Take 1 tablet by mouth once daily. - cholecalciferol, vitamin D3, (VITAMIN D3 ORAL) Take 75 mcg by mouth once daily. - Cyanocobalamin (VITAMIN B-12) 2,000 mcg TbER Take 1 tablet by mouth once daily. Problem List As Of Date 11/08/2024 Noted Resolved Postablative hypothyroidism [E89.0] PCOS (polycystic ovarian syndrome) [E28.2] Supervision of high risk in first tri*04/24/2024 BMI 40.0-44.9, adult (HCC) [Z68.41] 04/24/2024 Anxiety [F41.9] 03/24/2020 High serum testosterone [R79.89] 10/20/2015 Rh negative state in antepartum period [O26.899*05/17/2024 Encounter for supervision of normal first pregn*05/22/2024 05/22/2024 Obesity in (HCC) [O99.210] 05/22/2024 GBS bacteriuria [R82.71] 06/11/2024 Depression during [O99.340, F32.A] 08/08/2024 Elevated glucose [R73.09] 09/03/2024 Pyelectasis of fetus on ultrasound (HC*09/21/2024 Encounter Status:Closed by REY TOBIAS on 11/08/24 [facility] 11-05-2024 Note HNO ID: [id number] Author: NATASHA GAVIN APRN.CNM Service: ? Author Type: Budget Accountant Type: Progress Notes Filed: 11/05/2024 11:47 Note Text: OBSTETRICS HISTORY AND PHYSICAL NAME: Walter Andrade SERVICE DATE: November 05, 2024 SERVICE TIME: 1059 ASSESSMENT AND PLAN: 24 year old EGA:37w5d. Plan for delivery in <30 days. POST DELIVERY CONTRACEPTION: Discussed post-delivery contraception options. Patient received written information about post-delivery contraception options. Patient does not desire post-delivery contraception. SUBJECTIVE: CHIEF COMPLAINT: Scheduled Induction of labor for Obesity, pregravid BMI 42 HISTORY OF THE PRESENT ILLNESS: The patient is a 24 year old female, , who is at 37w5d with an GASPER of 11/21/2024, by Ultrasound dating method. Patient has Good movement. Denies vaginal bleeding., Denies contractions., Denies leaking of fluid. . Patient is GBS Positive. Her has been complicated by the following issues: Active Non-Hospital Problems Diagnosis Date Noted Pyelectasis of fetus on ultrasound ([facility]) 09/21/2024 Overview Note: Resolved at 32 week ultrasound. Lima Kim APRN.CNM Repeat ultrasound Elevated glucose 09/03/2024 Overview Note: 09/19/24- 3 hour GTT normal. Lima Kim APRN.CNM 09/03/24- 1 hour elevated. 3 hour GTT ordered. Lima Kim APRN.CNM Depression during 08/08/2024 GBS bacteriuria 06/11/2024 Obesity in ([facility]) 05/22/2024 Rh negative state in antepartum period ([facility]) 05/17/2024 Supervision of high risk in first trimester ([facility]) 04/24/2024 Overview Note: Care Checklist Vaccines: [x] Flu vaccine [] declined [] RSV vaccine 32 0/7 - 36 6 (Nov - Apr) [x] na [] COVID vaccine [x] declined [] TDaP 27-36 [] declined First trimester: [x] Dating US [x] 1st tri labs [] Pap smear [] Carrier screening [x] declined [] NIPT screening [] declined [x] First trimester anatomy scan [] declined [x] universal ASA ordered (start 12w-16w) [] declined [] M Power Consult [x] not indicated [] declined Second trimester: [x] Anatomy scan [] Mode of Delivery - [x] Feeding - [x] Pump ordered [x] Diabetes screen [x] CBC, RPR [] Behavioral Health Screening Third trimester (28-30 weeks): [] Consent [] Contraception [x] Rn Referral [] TeamBirth handout Third trimester (36-40 weeks): [] GBS [] Presentation - [] Scheduled [] yes - Hibiclens, pre-op instructions, CBC, TANDS ordered [] no [] HANDP [] Preferences worksheet [] Scanned in EMR [] Patient to bring copy to hospital [] Declined BMI 40.0-44.9, adult (HCC) 04/24/2024 Postablative hypothyroidism PCOS (polycystic ovarian syndrome) Anxiety 03/24/2020 High serum testosterone 10/20/2015 ANESTHESIA COMPLICATIONS: None HISTORY REVIEW PAST MEDICAL HISTORY Diagnosis Date Hypothyroidism PCOS (polycystic ovarian syndrome) PAST SURGICAL HISTORY Procedure Laterality Date REMOVAL OF THYROID FAMILY HISTORY Problem Relation Age of Onset No Known Problems Mother No Known Problems Father No Known Problems Sister No Known Problems Sister No Known Problems Brother SOCIAL HISTORY[1] Obstetric History T0 L0 SAB0 IAB0 Ectopic0 Multiple0 Live Births0 Name of Baby 1: Not recorded Date: Not recorded GA: Not recorded Type: Not recorded Apgar1: Not recorded Apgar5: Not recorded Living: Not recorded ALLERGIES: ALLERGIES No Known Allergies PRIOR TO ADMISSION MEDICATIONS: Prior to Admission medications as of 11/05/24 1039 Medication Sig Last Dose Taking Breast Pump Use as directed Yes ascorbic acid, vitamin C, (VITAMIN C) 500 mg tablet Take 1 tablet by mouth every other day. Yes ferrous sulfate 325 mg (65 mg iron) tablet Take 1 tablet by mouth every other day. Yes levothyroxine (SYNTHROID) 200 mcg tablet Take 1 tablet by mouth daily before breakfast. Yes aspirin, enteric coated (ECOTRIN LOW STRENGTH) 81 mg EC tablet Take 1 tablet by mouth once daily. Yes cholecalciferol, vitamin D3, (VITAMIN D3 ORAL) Take 75 mcg by mouth once daily. Yes Cyanocobalamin (VITAMIN B-12) 2,000 mcg TbER Take 1 tablet by mouth once daily. Yes [id number]-frxi-hxdby acid (PRENATA) 29 mg iron- 1 mg chew Take 1 tablet by mouth once daily. No medication comments found. REVIEW OF SYSTEMS: The remainder of the review of systems is negative. OBJECTIVE: SENSITIVE EXAM: The sensitive examination was discussed with the Patient or Patient's Authorized Timber Selector. As applicable, any other physician, advance practice provider, medical student, or other health professional student that will be observing or involved in the sensitive examination for educational or training purposes was discussed with the Patient or Authorized Timber Selector. The Patient or Authorized Timber Selector has agreed to proceed (more content not included)... [facility] 11-05-2024 Progress note Formatting of t his note might be different from the original. DARRELL-S: Walter Andrade is a 24 year old female who presents at 37w5d with GASPER:11/21/2024, by Ultrasound for a routine visit. Denies headache, visual changes, chest pain, shortness of breath, vaginal bleeding, leakage of fluid, or dysuria. Feeling well, no complaints. O: See flow sheet Gen: No apparent distress Abd: Gravid, nontender NST reactive SENSITIVE EXAMINATION CONSENT: The sensitive examination was discussed with the Patient or Patient's Authorized Timber Selector. As applicable, any other physician, advance practice provider, medical student, or other health professional student that will be observing or involved in the sensitive examination for educational or training purposes was discussed with the Patient or Authorized Timber Selector. The Patient or Authorized Timber Selector has agreed to proceed with the sensitive examination. ASSESSMENT/PLAN: 1. Supervision of high risk in second trimester -Continue PNV and ASA 2. 37 weeks gestation of 3. Obesity in Pregravid BMI 42 Recommend IOL at 39 weeks. Reviewed risks, benefits, and alternatives. Would like to proceed with IOL at 39 weeks. 11/14 at 1900 for esparza and cytotec 4. Postablative hypothyroidism - Synthroid 200mcg PO once daily. 5. GBS bacteriuria -GBS prophylaxis during labor 6. Depression during in third trimester Labor instructions reviewed and when to call RTO for PP visit Natasha Gavin APRN.CNM [facility] 11-05-2024 History of Present illness Narrative OBSTETRICS HISTORY AND PHYSICAL NAME: Walter Andrade SERVICE DATE: November 05, 2024 SERVICE TIME: 1059 ASSESSMENT & PLAN: 24 year old EGA:37w5d. Plan for delivery in <30 days. POST DELIVERY CONTRACEPTION: Discussed post-delivery contraception options. Patient received written information about post-delivery contraception options. Patient does not desire post-delivery contraception. SUBJECTIVE: CHIEF COMPLAINT: Scheduled Induction of labor for Obesity, pregravid BMI 42 HISTORY OF THE PRESENT ILLNESS: The patient is a 24 year old female, , who is at 37w5d with an GASPER of 11/21/2024, by Ultrasound dating method. Patient has Good movement. Denies vaginal bleeding., Denies contractions., Denies leaking of fluid. . Patient is GBS Positive. Her has been complicated by the following issues: Active Non-Hospital Problems Diagnosis Date Noted Pyelectasis of fetus on ultrasound ([facility]) 09/21/2024 Overview Note: Resolved at 32 week ultrasound. Lima Kim APRN.CNM Repeat ultrasound Elevated glucose 09/03/2024 Overview Note: 09/19/24- 3 hour GTT normal. Lima Kim APRN.CNM 09/03/24- 1 hour elevated. 3 hour GTT ordered. Lima Kim APRN.CNM Depression during 08/08/2024 GBS bacteriuria 06/11/2024 Obesity in ([facility]) 05/22/2024 Rh negative state in antepartum period ([facility]) 05/17/2024 Supervision of high risk in first trimester ([facility]) 04/24/2024 Overview Note: Care Checklist Vaccines: [x] Flu vaccine [] declined [] RSV vaccine 32 0/7 - 36 08/18 (Nov - Apr) [x] na [] COVID vaccine [x] declined [] TDaP 27-36 [] declined First trimester: [x] Dating US [x] 1st tri labs [] Pap smear [] Carrier screening [x] declined [] NIPT screening [] declined [x] First trimester anatomy scan [] declined [x] universal ASA ordered (start 12w-16w) [] declined [] M Power Consult [x] not indicated [] declined Second trimester: [x] Anatomy scan [] Mode of Delivery - [x] Feeding - [x] Pump ordered [x] Diabetes screen [x] CBC, RPR [] Behavioral Health Screening Third trimester (28-30 weeks): [] Consent [] Contraception [x] Rn Referral [] TeamBirth handout Third trimester (36-40 weeks): [] GBS [] Presentation - [] Scheduled [] yes - Hibiclens, pre-op instructions, CBC, T&S ordered [] no [] H&P [] Preferences worksheet [] Scanned in EMR [] Patient to bring copy to hospital [] Declined BMI 40.0-44.9, adult ([facility]) 04/24/2024 Postablative hypothyroidism PCOS (polycystic ovarian syndrome) Anxiety 03/24/2020 High serum testosterone 10/20/2015 ANESTHESIA COMPLICATIONS: None HISTORY REVIEW PAST MEDICAL HISTORY Diagnosis Date Hypothyroidism PCOS (polycystic ovarian syndrome) PAST SURGICAL HISTORY Procedure Laterality Date REMOVAL OF THYROID FAMILY HISTORY Problem Relation Age of Onset No Known Problems Mother No Known Problems Father No Known Problems Sister No Known Problems Sister No Known Problems Brother SOCIAL HISTORY[1] Obstetric History T0 L0 SAB0 IAB0 Ectopic0 Multiple0 Live Births0 Name of Baby 1: Not recorded Date: Not recorded GA: Not recorded Type: Not recorded Apgar1: Not recorded Apgar5: Not recorded Living: Not recorded ALLERGIES: ALLERGIES No Known Allergies PRIOR TO ADMISSION MEDICATIONS: Prior to Admission medications as of 11/05/24 1039 Medication Sig Last Dose Taking Breast Pump Use as directed Yes ascorbic acid, vitamin C, (VITAMIN C) 500 mg tablet Take 1 tablet by mouth every other day. Yes ferrous sulfate 325 mg (65 mg iron) tablet Take 1 tablet by mouth every other day. Yes levothyroxine (SYNTHROID) 200 mcg tablet Take 1 tablet by mouth daily before breakfast. Yes aspirin, enteric coated (ECOTRIN LOW STRENGTH) 81 mg EC tablet Take 1 tablet by mouth once daily. Yes cholecalciferol, vitamin D3, (VITAMIN D3 ORAL) Take 75 mcg by mouth once daily. Yes Cyanocobalamin (VITAMIN B-12) 2,000 mcg TbER Take 1 tablet by mouth once daily. Yes [id number]-rjwxq acid (PRENATA) 29 mg iron- 1 mg chew Take 1 tablet by mouth once daily. No medication comments found. REVIEW OF SYSTEMS: The remainder of the review of systems is negative. OBJECTIVE: SENSITIVE EXAM: The sensitive examination was discussed with the Patient or Patient's Authorized Timber Selector. As applicable, any other physician, advance practice provider, medical student, or other health professional student that will be observing or involved in the sensitive examination for educational or training purposes was discussed with the Patient or Authorized Timber Selector. The Patient or Authorized Timber Selector has agreed to proceed with the sensitive examination. (Sensitive examination includes inspection and/or palpation of the breasts, pelvis, prostate and anorectal regions). PHYSICAL EXAM: General: WD, WN HEENT: NC/AT, sclera white, pupils equal, no thyromegaly Lungs: clear, Heart: RR, S1, S2 Abdomen: soft, nontender, no masses Uterus: soft, NT, EFW 7#, Cephalic by Jacoby's Extremities: no edema DTRs: 2+ Pelvimetry: Pelvimetry clinically assessed as adequate LAST VITALS: BP 127/80 (BP Position: Sitting) Wt 121.7 kg (268 lb 6.4 oz) LMP 02/03/2024 BMI 45.65 kg/m Heart Rate: 150 LABS Diagnostic tests reviewed for today's visit: Most recent labs and imaging results. Maternal Results (In Last 9 Months): Hemoglobin (g/dL) Date/Time Value 10/22/2024 1119 11.5 08/20/2024 1127 10.8 (L) 05/15/2024 1205 11.6 Hematocrit (%) Date/Time Value 10/22/2024 1119 33.8 (L) 08/20/2024 1127 32.1 (L) 05/15/2024 1205 34.4 (L) Platelet Count (k/uL) Date/Time Value 10/22/2024 1119 182 08/20/2024 1127 184 05/15/2024 1205 219 ABO (no units) Date/Time Value 09/03/2024 1409 A Rh(D) (no units) Date/Time Value 09/03/2024 1409 Negative HBsAg (no units) Date/Time Value 05/15/2024 1205 Negative Hep C Antibody IA (no units) Date/Time Value 05/15/2024 1205 Negative HIV 12 Combo (Ag/Ab) (no units) Date/Time Value 05/15/2024 120 Nonreactive Neisseria gonorrhoeae RNA (no units) Date/Time Value 04/24/2024 0926 Not detected Syphilis Treponemal Screen (no units) Date/Time Value 08/20/2024 1127 Nonreactive Glucose Scrn, Preg (mg/dL) Date/Time Value 09/03/2024 1409 154 (H) Delivery Plan: Induction Order completed and includes: Open Standing Orders None Induction Order Details None Electronic Informed Consent completed: Yes SIGNATURE: Natasha Gavin APRN.CNM DATE: November 05, 2024 TIME: 10:57 AM NST SUMMARY PROVIDER ASSESSMENT AND INTERPRETATION Walter Andrade is a 24 year old female, , who is at 37w5d with an GASPER of 11/21/2024, by Ultrasound dating method. Indications for NST: Obesity Baseline: 125 Variability: Moderate Accelerations: Present 15 X 15 Decelerations: None Contractions: TOCO: None Interpretation: Reactive SIGNATURE: Natasha Gavin APRN.CNM [1] Social History Tobacco Use Smoking status: Former Smokeless tobacco: Former Vaping Use Vaping status: Former Substances: Nicotine, Flavoring Substance Use Topics Alcohol use: Not Currently Drug use: Not Currently Types: Marijuana documented in this encounter [facility] 11-05-2024 Miscellaneous Notes DARRELL-S: Walter Andrade is a 24 year old female who presents at 37w5d with GASPER:11/21/2024, by Ultrasound for a routine visit. Denies headache, visual changes, chest pain, shortness of breath, vaginal bleeding, leakage of fluid, or dysuria. Feeling well, no complaints. O: See flow sheet Gen: No apparent distress Abd: Gravid, nontender NST reactive SENSITIVE EXAMINATION CONSENT: The sensitive examination was discussed with the Patient or Patient's Authorized Timber Selector. As applicable, any other physician, advance practice provider, medical student, or other health professional student that will be observing or involved in the sensitive examination for educational or training purposes was discussed with the Patient or Authorized Timber Selector. The Patient or Authorized Timber Selector has agreed to proceed with the sensitive examination. ASSESSMENT/PLAN: 1. Supervision of high risk in second trimester -Continue PNV and ASA 2. 37 weeks gestation of 3. Obesity in Pregravid BMI 42 Recommend IOL at 39 weeks. Reviewed risks, benefits, and alternatives. Would like to proceed with IOL at 39 weeks. 11/14 at 1900 for esparza and cytotec 4. Postablative hypothyroidism - Synthroid 200mcg PO once daily. 5. GBS bacteriuria -GBS prophylaxis during labor 6. Depression during in third trimester Labor instructions reviewed and when to call RTO for PP visit Natasha Gavin APRN.CNM documented in this encounter [facility] 11-05-2024 Instructions Chela Padron LPN - 11/05/2024 10:21 AM EDT SEQUENTIAL SCREENINGS The [facility] offers sequential screenings for women who are interested in screenings for chromosomal abnormalities and certain defects during a . The sequential screen combines ultrasound and blood tests to determine the risk of chromosomal abnormalities, including Down's Syndrome (Trisomy 21) and Trisomy 18, as well as open neural tube defects including spina bifida. Ultrasound examination is performed between 11 weeks and 13 weeks gestational age. Blood tests are drawn after the ultrasound and again later in the between 15 and 21 weeks gestational age. Please let your physician know if you are interested in this testing. It will require an appointment with our asbestos abatement technician. This is not an ultrasound performed by a physician in our office during a routine visit. SIGNS AND SYMPTOMS OF LABOR 1. Contractions every 10 minutes or more often 2. Clear, pink, or brownish fluid (water) leaking from vagina 3. Feeling that baby is pushing down, pressure 4. Low, dull backache 5. Cramps that feel like a period 6. Cramps with or without diarrhea If you notice any of the above symptoms, contact our office at [phone] and ask to speak with a nurse. After hours, you can call doctors registry at [phone] OR call [facility] at [phone] and ask to have the doctor converting operator paged. If you consider this an emergency, dial or go to your nearest emergency department. NEED HELP? Are you dealing with a violent or abusive relationship? Are you a victim of rape or sexual assult? Call [facility] ([facility]) 24 hour Crisis Hotline: 256.479.8954 or 255-486-6069. MANUAL Your Guide to a Healthy manual is now on-line. Visit [email or web address] to download your free copy documented in this encounter [facility] 10-30-2024 Note Indication Evaluation of growth, Evaluation of well-being Maternal obesity, BMI >40 Impression - Single, live, intrauterine . - presentation is cephalic. - The biometry is consistent with the assigned gestational dating. - The EFW is 3011 g, at the 55%. AC is at the 81%. - The amniotic fluid volume is normal amount with an MVP of 7.2 cm and an TERESA of 19.4 cm. - The placenta is anterior, fundal. - BPP 10/19. - No malformations visualized on a limited survey as detailed below. Recommendations Additional follow-up as clinically indicated. Maternal Assessment Height 163 cm Height (ft) 5 ft Height (in) 4 in Physical Exam Initial weight (lb) 252 lb Initial BMI 43.26 kg/m Maternal assessment other: 1 Para 0 REMOTE READ Method Transabdominal ultrasound examination Davila . Number of fetuses: 1 Dating GA by prior assessment 36 w + 5 d GASPER by prior assessment: 11/21/2024 Ultrasound examination on: 10/29/2024 GA by U/S based upon: AC, BPD, Femur, HC GA by U/S 36 w + 5 d GASPER by U/S: 11/21/2024 Assigned: based on stated GASPER, selected on 10/29/2024 Assigned GA 36 w + 5 d Assigned GASPER: 11/21/2024 General Evaluation Cardiac activity present. FHR 136 bpm. movements: present. Presentation: cephalic Placenta: Placental site: anterior, fundal Umbilical cord: Cord vessels: 3 vessel cord Amniotic fluid: Amount of AF: normal amount. MVP 7.2 cm. TERESA 19.4 cm. Q1 3.4 cm, Q2 7.2 cm, Q3 2.8 cm, Q4 5.9 cm Biophysical Profile 2: breathing movements 2: Gross body movements 2: tone 2: Amniotic fluid volume 10/19 Biophysical profile score Growth Overview Exam date GA BPD (mm) HC (mm) AC (mm) FL (mm) HL (mm) EFW (g) 06/11/2024 16w 5d 39.2 93% 149.5 84% 121.7 84% 22 48% 25.2 91% 190 80% 07/09/2024 20w 5d 52.8 91% 196.9 82% 172.4 86% 36.5 90% 35.3 90% 461 95% 09/24/2024 31w 5d 81.5 72% 299.7 63% 297.4 93% 61 59% 2097 79% 10/29/2024 36w 5d 91.8 77% 335.6 68% 335.2 81% 66.8 18% 3011 55% Biometry Standard BPD 91.8 mm 37w 2d 77% Hadlock OFD 118.4 mm -/- 73% Nicolaides HC 335.6 mm 38w 1d 68% Geoff AC 335.2 mm 37w 3d 81% Hadlock Femur 66.8 mm 34w 0d 18% Egoff EFW 3,011 g 36w 6d 55% Hadlock EFW (lb) 6 lb EFW (oz) 10 oz EFW by: Hadlock (HC-AC-FL) Extended Physiotherapy Practice Manager 5.3 mm Extremities / Bony Struc FL / HC 0.20 Other Structures FHR 136 bpm Anatomy Lateral ventricles: normal Cavum septi pellucidi: normal Cerebellum: suboptimally visualized Cisterna magna: suboptimally visualized 4-chamber view: normal RVOT view: normal LVOT view: normal 3-vessel view: normal Heart / Thorax Situs: situs solitus (normal) Diaphragm: normal Stomach: normal Kidneys: normal Bladder: normal sex: male Wants to know sex: yes Performed By: Laurie Henao RDMS, RVT Read By: Deloris Ochoa M.D. [facility] 10-29-2024 Note HNO ID: [id number] Author: RENETTA HERNANDEZ MD Service: ? Author Type: Physician Type: Progress Notes Filed: 11/01/2024 13:49 Note Text: SW- Pt doing well. No pain, vb, lof. Good FM PE: Gen- NAD, well appearing See flowsheet A/p 36 wk gestation - GBS bacteruria: Discussed PCN in labor - Obesity: Growth US and BPP today - Significant time spent answering all questions about 39 week IOL. Patient is hesitant to have an induction of labor. Reviewed induction process and all questions answered - RTO 1 wk Renetta Hernandez DO [facility] 10-29-2024 History of Present illness Narrative SW- Pt doing well. No pain, vb, lof. Good FM PE: Gen- NAD, well appearing See flowsheet A/p 36 wk gestation - GBS bacteruria: Discussed PCN in labor - Obesity: Growth US and BPP today - Significant time spent answering all questions about 39 week IOL. Patient is hesitant to have an induction of labor. Reviewed induction process and all questions answered - RTO 1 wk Renetta Hernandez DO documented in this encounter [facility] 10-29-2024 Progress note Formatting of t his note might be different from the original. SW- pt doing well. [facility] 10-29-2024 Miscellaneous Notes SW- pt doing well. documented in this encounter [facility] 10-29-2024 Soila Gonzalez MA - 10/29/2024 2:21 PM EDT SEQUENTIAL SCREENINGS The [facility] offers sequential screenings for women who are interested in screenings for chromosomal abnormalities and certain defects during a . The sequential screen combines ultrasound and blood tests to determine the risk of chromosomal abnormalities, including Down's Syndrome (Trisomy 21) and Trisomy 18, as well as open neural tube defects including spina bifida. Ultrasound examination is performed between 11 weeks and 13 weeks gestational age. Blood tests are drawn after the ultrasound and again later in the between 15 and 21 weeks gestational age. Please let your physician know if you are interested in this testing. It will require an appointment with our asbestos abatement technician. This is not an ultrasound performed by a physician in our office during a routine visit. SIGNS AND SYMPTOMS OF LABOR 1. Contractions every 10 minutes or more often 2. Clear, pink, or brownish fluid (water) leaking from vagina 3. Feeling that baby is pushing down, pressure 4. Low, dull backache 5. Cramps that feel like a period 6. Cramps with or without diarrhea If you notice any of the above symptoms, contact our office at [phone] and ask to speak with a nurse. After hours, you can call doctors registry at [phone] OR call [facility] at [phone] and ask to have the doctor converting operator paged. If you consider this an emergency, dial 0-0-4 or go to your nearest emergency department. NEED HELP? Are you dealing with a violent or abusive relationship? Are you a victim of rape or sexual assult? Call [facility] (Index) 24 hour Crisis Hotline: 555.348.8500 or 715-250-3375. MANUAL Your Guide to a Healthy manual is now on-line. Visit [email or web address] to download your free copy documented in this encounter [facility] 10-22-2024 Progress note Formatting of t his note might be different from the original. S: Walter Andrade is a 24 year old female who presents at 11/21/2024, by Ultrasound for a routine visit. Denies headache, visual changes, chest pain, shortness of breath, vaginal bleeding, leakage of fluid, or dysuria. Feeling well, no complaints. Good movement, No contractions O: See flow sheet Gen: No apparent distress Abd: Gravid, nontender NST Growth next week ASSESSMENT/PLAN: 1. 35 weeks gestation of (HCC) - ICD9: V22.2, ICD10: Z3A.35 (primary diagnosis) - URINE OB DIP B/O 2. Supervision of high risk in third trimester ([facility]) - ICD9: V23.9, ICD10: O09.93 - URINE OB DIP B/O 3. Obesity affecting in third trimester, unspecified obesity type (HCC) - ICD9: 649.13, ICD10: O99.213 Weekly NSTs Growth q 4 - URINE OB DIP B/O Bushra Roa MD [facility] 10-22-2024 Note HNO ID: [id number] Author: BUSHRA ROA MD Service: ? Author Type: Physician Type: Progress Notes Filed: 10/22/2024 11:17 Note Text: NST SUMMARY PROVIDER ASSESSMENT AND INTERPRETATION Indications for NST: Obesity Baseline: 125 Variability: Moderate Accelerations: Present 15 X 15 Decelerations: None Interpretation: Reactive SIGNATURE: Bushra Roa MD [facility] 10-22-2024 History of Present illness Narrative NST SUMMARY PROVIDER ASSESSMENT AND INTERPRETATION Indications for NST: Obesity Baseline: 125 Variability: Moderate Accelerations: Present 15 X 15 Decelerations: None Interpretation: Reactive SIGNATURE: Bushra Roa MD documented in this encounter [facility] 10-22-2024 Miscellaneous Notes S: Walter Andrade is a 24 year old female who presents at 11/21/2024, by Ultrasound for a routine visit. Denies headache, visual changes, chest pain, shortness of breath, vaginal bleeding, leakage of fluid, or dysuria. Feeling well, no complaints. Good movement, No contractions O: See flow sheet Gen: No apparent distress Abd: Gravid, nontender NST Growth next week ASSESSMENT/PLAN: 1. 35 weeks gestation of (HCC) - ICD9: V22.2, ICD10: Z3A.35 (primary diagnosis) - URINE OB DIP B/O 2. Supervision of high risk in third trimester (HCC) - ICD9: V23.9, ICD10: O09.93 - URINE OB DIP B/O 3. Obesity affecting in third trimester, unspecified obesity type (HCC) - ICD9: 649.13, ICD10: O99.213 Weekly NSTs Growth q 4 - URINE OB DIP B/O Bushra Rao MD documented in this encounter [facility] 10-22-2024 Instructions Soila Sanchez LEATHA - 10/22/2024 10:44 AM EDT SEQUENTIAL SCREENINGS The [facility] offers sequential screenings for women who are interested in screenings for chromosomal abnormalities and certain defects during a . The sequential screen combines ultrasound and blood tests to determine the risk of chromosomal abnormalities, including Down's Syndrome (Trisomy 21) and Trisomy 18, as well as open neural tube defects including spina bifida. Ultrasound examination is performed between 11 weeks and 13 weeks gestational age. Blood tests are drawn after the ultrasound and again later in the between 15 and 21 weeks gestational age. Please let your physician know if you are interested in this testing. It will require an appointment with our asbestos abatement technician. This is not an ultrasound performed by a physician in our office during a routine visit. SIGNS AND SYMPTOMS OF LABOR 1. Contractions every 10 minutes or more often 2. Clear, pink, or brownish fluid (water) leaking from vagina 3. Feeling that baby is pushing down, pressure 4. Low, dull backache 5. Cramps that feel like a period 6. Cramps with or without diarrhea If you notice any of the above symptoms, contact our office at [phone] and ask to speak with a nurse. After hours, you can call doctors registry at [phone] OR call [facility] at [phone] and ask to have the doctor converting operator paged. If you consider this an emergency, dial 9-1-1 or go to your nearest emergency department. NEED HELP? Are you dealing with a violent or abusive relationship? Are you a victim of rape or sexual assult? Call [facility] (Index) 24 hour Crisis Hotline: 294.764.3041 or 852-550-1627. MANUAL Your Guide to a Healthy manual is now on-line. Visit [email or web address] to download your free copy documented in this encounter [facility] 10-15-2024 Note HNO ID: [id number] Author: LIMA KIM APRN.CNM Service: ? Author Type: Budget Accountant Type: Progress Notes Filed: 10/15/2024 12:28 Note Text: NST SUMMARY PROVIDER ASSESSMENT AND INTERPRETATION Walter Andrade is a 24 year old female, , who is at 34w5d with an GASPER of 11/21/2024, by Ultrasound dating method. Indications for NST: Obesity Baseline: 140 Variability: Moderate Accelerations: Present 15 X 15 Decelerations: None Contractions: TOCO: None Interpretation: Reactive SIGNATURE: Lima Kim APRN.CNM [facility] 10-15-2024 History of Present illness Narrative NST SUMMARY PROVIDER ASSESSMENT AND INTERPRETATION Walter Andrade is a 24 year old female, , who is at 34w5d with an GASPER of 11/21/2024, by Ultrasound dating method. Indications for NST: Obesity Baseline: 140 Variability: Moderate Accelerations: Present 15 X 15 Decelerations: None Contractions: TOCO: None Interpretation: Reactive SIGNATURE: Lima Kim APRN.CNM documented in this encounter [facility] 10-15-2024 Progress note Formatting of t his note might be different from the original. S: Walter Andrade is a 24 year old female who presents at 34 weeks gestation for a routine visit with NST. NST reactive. No contractions. Denies headache, visual changes, chest pain, shortness of breath, vaginal bleeding, leakage of fluid, or dysuria. Feeling well, no complaints. O: See flow sheet Gen: No apparent distress Abd: Gravid, nontender ASSESSMENT/PLAN: 1. Supervision of high risk in third trimester 2. Obesity affecting in third trimester, unspecified obesity type 3. Hypothyroidism 4. Depression during in third trimester 5. 34 weeks gestation of 6. Pyelectasis of fetus on ultrasound - Pyelectasis resolve on 32 week growth US - Mood stable- seeing counselor - Continue vitamin PO daily - Continue ASA PO at night - Continue Synthroid 200 mcg PO daily- Ordered Thyroid levels today - Continue oral iron- repeat CBC - Pregravid BMI 42- Plan for delivery at 39 weeks - Continue weekly NSTs and growth US - GBS + in urine- Treat with PCN IV during labor and delivery - PTL precautions reviewed and when to call - RTO 1 week Lima Kim APRN.CNM [facility] 10-15-2024 Miscellaneous Notes S: Walter Andrade is a 24 year old female who presents at 34 weeks gestation for a routine visit with NST. NST reactive. No contractions. Denies headache, visual changes, chest pain, shortness of breath, vaginal bleeding, leakage of fluid, or dysuria. Feeling well, no complaints. O: See flow sheet Gen: No apparent distress Abd: Gravid, nontender ASSESSMENT/PLAN: 1. Supervision of high risk in third trimester 2. Obesity affecting in third trimester, unspecified obesity type 3. Hypothyroidism 4. Depression during in third trimester 5. 34 weeks gestation of 6. Pyelectasis of fetus on ultrasound - Pyelectasis resolve on 32 week growth US - Mood stable- seeing counselor - Continue vitamin PO daily - Continue ASA PO at night - Continue Synthroid 200 mcg PO daily- Ordered Thyroid levels today - Continue oral iron- repeat CBC - Pregravid BMI 42- Plan for delivery at 39 weeks - Continue weekly NSTs and growth US - GBS + in urine- Treat with PCN IV during labor and delivery - PTL precautions reviewed and when to call - RTO 1 week Lima Kim APRN.CNM documented in this encounter [facility] 10-15-2024 Instructions Eladio Pierre LPN - 10/15/2024 11:13 AM EDT SEQUENTIAL SCREENINGS The [facility] offers sequential screenings for women who are interested in screenings for chromosomal abnormalities and certain defects during a . The sequential screen combines ultrasound and blood tests to determine the risk of chromosomal abnormalities, including Down's Syndrome (Trisomy 21) and Trisomy 18, as well as open neural tube defects including spina bifida. Ultrasound examination is performed between 11 weeks and 13 weeks gestational age. Blood tests are drawn after the ultrasound and again later in the between 15 and 21 weeks gestational age. Please let your physician know if you are interested in this testing. It will require an appointment with our asbestos abatement technician. This is not an ultrasound performed by a physician in our office during a routine visit. SIGNS AND SYMPTOMS OF LABOR 1. Contractions every 10 minutes or more often 2. Clear, pink, or brownish fluid (water) leaking from vagina 3. Feeling that baby is pushing down, pressure 4. Low, dull backache 5. Cramps that feel like a period 6. Cramps with or without diarrhea If you notice any of the above symptoms, contact our office at [phone] and ask to speak with a nurse. After hours, you can call doctors registry at [phone] OR call [facility] at [phone] and ask to have the doctor converting operator paged. If you consider this an emergency, dial 3-1-4 or go to your nearest emergency department. NEED HELP? Are you dealing with a violent or abusive relationship? Are you a victim of rape or sexual assult? Call [facility] (Index) 24 hour Crisis Hotline: 845.540.3154 or 160-264-4375. MANUAL Your Guide to a Healthy manual is now on-line. Visit [email or web address] to download your free copy documented in this encounter [facility] 10-08-2024 Progress note Formatting of t his note might be different from the original. S: Walter Andrade is a 24 year old female who presents at 11/21/2024, by Ultrasound for a routine visit. Denies headache, visual changes, chest pain, shortness of breath, vaginal bleeding, leakage of fluid, or dysuria. Feeling well, no complaints. Good movement, No contractions O: See flow sheet Gen: No apparent distress Abd: Gravid, nontender Reactive NST GBS positive ASSESSMENT/PLAN: 1. Supervision of high risk in third trimester ([facility]) - ICD9: V23.9, ICD10: O09.93 (primary diagnosis) - URINE OB DIP B/O 2. Obesity affecting in third trimester, unspecified obesity type ([facility]) - ICD9: 649.13, ICD10: O99.213 Growth q 4 Weekly NST - URINE OB DIP B/O 3. Hypothyroidism, unspecified type - ICD9: 244.9, ICD10: E03.9 - URINE OB DIP B/O 4. Depression during in third trimester ([facility]) - ICD9: 648.43, ICD10: O99.343, F32.A - URINE OB DIP B/O 5. 33 weeks gestation of ([facility]) - ICD9: V22.2, ICD10: Z3A.33 - URINE OB DIP B/O 6. Anemia during in third trimester ([facility]) - ICD9: 648.23, ICD10: O99.013 Oral iron Recheck at 36 weeks Bushra Roa MD [facility] 10-08-2024 Miscellaneous Notes S: Walter Andrade is a 24 year old female who presents at 11/21/2024, by Ultrasound for a routine visit. Denies headache, visual changes, chest pain, shortness of breath, vaginal bleeding, leakage of fluid, or dysuria. Feeling well, no complaints. Good movement, No contractions O: See flow sheet Gen: No apparent distress Abd: Gravid, nontender Reactive NST GBS positive ASSESSMENT/PLAN: 1. Supervision of high risk in third trimester ([facility]) - ICD9: V23.9, ICD10: O09.93 (primary diagnosis) - URINE OB DIP B/O 2. Obesity affecting in third trimester, unspecified obesity type ([facility]) - ICD9: 649.13, ICD10: O99.213 Growth q 4 Weekly NST - URINE OB DIP B/O 3. Hypothyroidism, unspecified type - ICD9: 244.9, ICD10: E03.9 - URINE OB DIP B/O 4. Depression during in third trimester ([facility]) - ICD9: 648.43, ICD10: O99.343, F32.A - URINE OB DIP B/O 5. 33 weeks gestation of ([facility]) - ICD9: V22.2, ICD10: Z3A.33 - URINE OB DIP B/O 6. Anemia during in third trimester ([facility]) - ICD9: 648.23, ICD10: O99.013 Oral iron Recheck at 36 weeks Bushra Roa MD documented in this encounter [facility] 10-08-2024 Instructions Amy Chiu MA - 10/08/2024 11:04 AM EDT SEQUENTIAL SCREENINGS The [facility] offers sequential screenings for women who are interested in screenings for chromosomal abnormalities and certain defects during a . The sequential screen combines ultrasound and blood tests to determine the risk of chromosomal abnormalities, including Down's Syndrome (Trisomy 21) and Trisomy 18, as well as open neural tube defects including spina bifida. Ultrasound examination is performed between 11 weeks and 13 weeks gestational age. Blood tests are drawn after the ultrasound and again later in the between 15 and 21 weeks gestational age. Please let your physician know if you are interested in this testing. It will require an appointment with our asbestos abatement technician. This is not an ultrasound performed by a physician in our office during a routine visit. SIGNS AND SYMPTOMS OF LABOR 1. Contractions every 10 minutes or more often 2. Clear, pink, or brownish fluid (water) leaking from vagina 3. Feeling that baby is pushing down, pressure 4. Low, dull backache 5. Cramps that feel like a period 6. Cramps with or without diarrhea If you notice any of the above symptoms, contact our office at [phone] and ask to speak with a nurse. After hours, you can call doctors registry at [phone] OR call [facility] at [phone] and ask to have the doctor converting operator paged. If you consider this an emergency, dial 9-1-1 or go to your nearest emergency department. NEED HELP? Are you dealing with a violent or abusive relationship? Are you a victim of rape or sexual assult? Call [facility] ([place]) 24 hour Crisis Hotline: 756.518.9304 or 771-553-2603. MANUAL Your Guide to a Healthy manual is now on-line. Visit [email or web address] to download your free copy documented in this encounter [facility] 10-01-2024 Note HNO ID: [id number] Author: RENETTA HERNANDEZ MD Service: ? Author Type: Physician Type: Progress Notes Filed: 10/01/2024 17:09 Note Text: NST SUMMARY PROVIDER ASSESSMENT AND INTERPRETATION Walter Andrade is a 24 year old female, , who is at 32w5d with an GASPER of 11/21/2024, by Ultrasound dating method. Indications for NST: Obesity Baseline: 125 Variability: Moderate Accelerations: Present 15 X 15 Decelerations: None Contractions: TOCO: None Interpretation: Reactive SIGNATURE: Renetta Hernandez DO [facility] 10-01-2024 History of Present illness Narrative NST SUMMARY PROVIDER ASSESSMENT AND INTERPRETATION Walter Andrade is a 24 year old female, , who is at 32w5d with an GASPER of 11/21/2024, by Ultrasound dating method. Indications for NST: Obesity Baseline: 125 Variability: Moderate Accelerations: Present 15 X 15 Decelerations: None Contractions: TOCO: None Interpretation: Reactive SIGNATURE: Renetta Hernandez DO SW- pt doing well. No pain, vb, lof. Good FM PE: Gen- NAD, well appearing Abd- Soft, NT See flowsheet A/p 32 wk gestation - Breast pump rx given - Discussed peds - Obesity: Cont with scheduled antepartum testing and serial growth ultrasounds Renetta Hernandez DO documented in this encounter [facility] 10-01-2024 Note HNO ID: [id number] Author: RENETTA HERNANDEZ MD Service: ? Author Type: Physician Type: Progress Notes Filed: 10/01/2024 17:09 Note Text: SW- pt doing well. No pain, vb, lof. Good FM PE: Gen- NAD, well appearing Abd- Soft, NT See flowsheet A/p 32 wk gestation - Breast pump rx given - Discussed peds - Obesity: Cont with scheduled antepartum testing and serial growth ultrasounds Renetta Hernandez, [facility] 10-01-2024 Instructions Soila Sanchez MA - 10/01/2024 2:50 PM EDT SEQUENTIAL SCREENINGS The [facility] offers sequential screenings for women who are interested in screenings for chromosomal abnormalities and certain defects during a . The sequential screen combines ultrasound and blood tests to determine the risk of chromosomal abnormalities, including Down's Syndrome (Trisomy 21) and Trisomy 18, as well as open neural tube defects including spina bifida. Ultrasound examination is performed between 11 weeks and 13 weeks gestational age. Blood tests are drawn after the ultrasound and again later in the between 15 and 21 weeks gestational age. Please let your physician know if you are interested in this testing. It will require an appointment with our asbestos abatement technician. This is not an ultrasound performed by a physician in our office during a routine visit. SIGNS AND SYMPTOMS OF LABOR 1. Contractions every 10 minutes or more often 2. Clear, pink, or brownish fluid (water) leaking from vagina 3. Feeling that baby is pushing down, pressure 4. Low, dull backache 5. Cramps that feel like a period 6. Cramps with or without diarrhea If you notice any of the above symptoms, contact our office at [phone] and ask to speak with a nurse. After hours, you can call doctors registry at [phone] OR call [facility] at [phone] and ask to have the doctor converting operator paged. If you consider this an emergency, dial 11-12- or go to your nearest emergency department. NEED HELP? Are you dealing with a violent or abusive relationship? Are you a victim of rape or sexual assult? Call [facility] ([facility]) 24 hour Crisis Hotline: 142.607.1366 or 109-493-2610. MANUAL Your Guide to a Healthy manual is now on-line. Visit [email or web address] to download your free copy documented in this encounter [facility] 09-25-2024 Note Indication Evaluation of growth, Evaluation of well-being Maternal obesity, BMI >40 Impression - Single, live, intrauterine . - presentation is cephalic. - The biometry is consistent with the assigned gestational dating. - The EFW is 2097 g, at the 79%. AC is at the 93%. - The amniotic fluid volume is normal amount with an MVP of 5.3 cm and an TERESA of 16.3 cm. - The placenta is anterior, fundal. - BPP 8/8. - No malformations visualized on a limited survey as detailed below. UTD resolved. Recommendations - growth scan every 4 weeks - Additional follow up as clinically indicated. Maternal Assessment Height 163 cm Height (ft) 5 ft Height (in) 4 in Physical Exam Initial weight (lb) 252 lb Initial BMI 43.26 kg/m Maternal assessment other: 1 Para 0 REMOTE READ Method Transabdominal ultrasound examination Davila . Number of fetuses: 1 Dating GA by prior assessment 31 w + 5 d GASPER by prior assessment: 11/21/2024 Ultrasound examination on: 09/24/2024 GA by U/S based upon: AC, BPD, Femur, HC GA by U/S 32 w + 4 d GASPER by U/S: 11/15/2024 Assigned: based on stated GASPER, selected on 09/24/2024 Assigned GA 31 w + 5 d Assigned GASPER: 11/21/2024 General Evaluation Cardiac activity present. FHR 135 bpm. movements: present. Presentation: cephalic Placenta: Placental site: anterior, fundal Umbilical cord: Cord vessels: 3 vessel cord Amniotic fluid: Amount of AF: normal amount. MVP 5.3 cm. TERESA 16.3 cm. Q1 5.3 cm, Q2 4.9 cm, Q3 4.1 cm, Q4 2.0 cm Biophysical Profile 2: breathing movements 2: Gross body movements 2: tone 2: Amniotic fluid volume 10/19 Biophysical profile score Growth Overview Exam date GA BPD (mm) HC (mm) AC (mm) FL (mm) HL (mm) EFW (g) 06/11/2024 16w 5d 39.2 93% 149.5 84% 121.7 84% 22 48% 25.2 91% 190 80% 07/09/2024 20w 5d 52.8 91% 196.9 82% 172.4 86% 36.5 90% 35.3 90% 461 95% 09/24/2024 31w 5d 81.5 72% 299.7 63% 297.4 93% 61 59% 209 79% Biometry Standard BPD 81.5 mm 32w 5d 72% Hadlock OFD 105.7 mm 31w 2d 54% Nicolaides HC 299.7 mm 32w 2d 63% Geoff AC 297.4 mm 33w 5d 93% Hadlock Femur 61.0 mm 31w 4d 59% Geoff EFW 2,097 g 32w 5d 79% Hadlock EFW (lb) 4 lb EFW (oz) 10 oz EFW by: Hadlock (HC-AC-FL) Extended Physiotherapy Practice Manager 5.4 mm Extremities / Bony Struc FL / HC 0.20 Other Structures FHR 135 bpm Anatomy Lateral ventricles: normal Cavum septi pellucidi: normal Cerebellum: normal Cisterna magna: normal 4-chamber view: normal RVOT view: normal LVOT view: normal 3-vessel view: normal Heart / Thorax Situs: situs solitus (normal) Diaphragm: normal Stomach: normal Kidneys: normal Bladder: normal sex: male Wants to know sex: yes Performed By: Laurie Henao RDMS, RVT Read By: Deloris Ochoa M.D. [facility] 09-24-2024 Progress note Formatting of t his note might be different from the original. SW- Pt doing well. No CM, vision changes, ctx, vb, lof. Good FM PE: Gen- NAD, well appearing See flowsheet A/p 31 wk gestation - Desires Mirena IUD for contraception after 6 week visit - Obesity: Growth US today and final report pending. Scheduled for weekly NST's and a repeat growth - Cont LDA - RTO 1 wk Renetta Hernandez DO [facility] 09-24-2024 Miscellaneous Notes SW- Pt doing well. No CM, vision changes, ctx, vb, lof. Good FM PE: Gen- NAD, well appearing See flowsheet A/p 31 wk gestation - Desires Mirena IUD for contraception after 6 week visit - Obesity: Growth US today and final report pending. Scheduled for weekly NST's and a repeat growth - Cont LDA - RTO 1 wk Renetta Hernandez DO documented in this encounter [facility] 09-24-2024 Instructions Soila Sanchez MA - 09/24/2024 3:21 PM EDT SEQUENTIAL SCREENINGS The [facility] offers sequential screenings for women who are interested in screenings for chromosomal abnormalities and certain defects during a . The sequential screen combines ultrasound and blood tests to determine the risk of chromosomal abnormalities, including Down's Syndrome (Trisomy 21) and Trisomy 18, as well as open neural tube defects including spina bifida. Ultrasound examination is performed between 11 weeks and 13 weeks gestational age. Blood tests are drawn after the ultrasound and again later in the between 15 and 21 weeks gestational age. Please let your physician know if you are interested in this testing. It will require an appointment with our asbestos abatement technician. This is not an ultrasound performed by a physician in our office during a routine visit. SIGNS AND SYMPTOMS OF LABOR 1. Contractions every 10 minutes or more often 2. Clear, pink, or brownish fluid (water) leaking from vagina 3. Feeling that baby is pushing down, pressure 4. Low, dull backache 5. Cramps that feel like a period 6. Cramps with or without diarrhea If you notice any of the above symptoms, contact our office at [phone] and ask to speak with a nurse. After hours, you can call [facility] at [phone] OR call [facility] at [phone] and ask to have the doctor converting operator paged. If you consider this an emergency, dial 9-1-3 or go to your nearest emergency department. NEED HELP? Are you dealing with a violent or abusive relationship? Are you a victim of rape or sexual assult? Call [facility] ([facility]) 24 hour Crisis Hotline: 424.896.6718 or 330-001-9490. MANUAL Your Guide to a Healthy manual is now on-line. Visit [email or web address] to download your free copy documented in this encounter [facility] 09-17-2024 Progress note Formatting of t his note is different from the original. DARRELL-S: Walter Andrade is a 24 year old female who presents at 30w5d with GASPER: 11/21/2024, by Ultrasound for a routine visit. Denies headache, visual changes, chest pain, shortness of breath, vaginal bleeding, leakage of fluid, or dysuria. Feeling well, no complaints. O: See flow sheet Gen: No apparent distress Abd: Gravid, nontender ASSESSMENT/PLAN: 1. Supervision of high risk in second trimester -Continue PNV and ASA 2. 30 weeks gestation of 3. BMI 40.0-44.9, adult 4. Obesity in Pregravid BMI 42 Growth US every 4 weeks starting at 32 weeks NSTs weekly starting at 32 weeks Recommend IOL at 39 weeks 5. Postablative hypothyroidism -TSH 3.6, continue Synthroid 200mcg PO once daily. -TSH and free T4 today 6. GBS bacteriuria -GBS prophylaxis during labor 7. Pyelectasis of fetus on ultrasound -Follow up US 8. Depression during in third trimester 9. Abnormal glucose in -3hr GTT today PTL precautions reviewed and when to call RTO in 2 weeks Natasha Gavin APRN.CNM [facility] 09-17-2024 Miscellaneous Notes DARRELL-S: Walter Andrade is a 24 year old female who presents at 30w5d with GASPER: 11/21/2024, by Ultrasound for a routine visit. Denies headache, visual changes, chest pain, shortness of breath, vaginal bleeding, leakage of fluid, or dysuria. Feeling well, no complaints. O: See flow sheet Gen: No apparent distress Abd: Gravid, nontender ASSESSMENT/PLAN: 1. Supervision of high risk in second trimester -Continue PNV and ASA 2. 30 weeks gestation of 3. BMI 40.0-44.9, adult 4. Obesity in Pregravid BMI 42 Growth US every 4 weeks starting at 32 weeks NSTs weekly starting at 32 weeks Recommend IOL at 39 weeks 5. Postablative hypothyroidism -TSH 3.6, continue Synthroid 200mcg PO once daily. -TSH and free T4 today 6. GBS bacteriuria -GBS prophylaxis during labor 7. Pyelectasis of fetus on ultrasound -Follow up US 8. Depression during in third trimester 9. Abnormal glucose in -3hr GTT today PTL precautions reviewed and when to call RTO in 2 weeks Natasha Gavin APRN.CNM documented in this encounter [facility] 09-17-2024 Instructions Hemant Sheikh MA - 09/17/2024 3:32 PM EDT SEQUENTIAL SCREENINGS [facility] offers sequential screenings for women who are interested in screenings for chromosomal abnormalities and certain defects during a . The sequential screen combines ultrasound and blood tests to determine the risk of chromosomal abnormalities, including Down's Syndrome (Trisomy 21) and Trisomy 18, as well as open neural tube defects including spina bifida. Ultrasound examination is performed between 11 weeks and 13 weeks gestational age. Blood tests are drawn after the ultrasound and again later in the between 15 and 21 weeks gestational age. Please let your physician know if you are interested in this testing. It will require an appointment with our asbestos abatement technician. This is not an ultrasound performed by a physician in our office during a routine visit. SIGNS AND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 notice any of the above symptoms, contact our office at [phone] and ask to speak with a nurse. After hours, you can call doctors registry at [phone] OR call [facility] at [phone] and ask to have the doctor converting operator paged. If you consider this an emergency, dial 9--8 or go to your nearest emergency department. NEED HELP? Are you dealing with a violent or abusive relationship? Are you a victim of rape or sexual assult? Call [facility] ([facility]) 24 hour Crisis Hotline: 927.936.1074 or 609-513-0043. MANUAL Your Guide to a Healthy manual is now on-line. Visit [email or web address] to download your free copy documented in this encounter [facility] 05-17-2024 Telephone encounter Note Tried reaching patient; however, mailbox is full and cannot accept new messages at this time. Everett Warren RN [facility] 05-17-2024 Telephone encounter Note Dina Sanchez APRN.CNP 05/17/24 7:28 AM Pt needs to follow up with her clinic charge nurse for elevated TSH. Please add to ob record. \Dina Sanchez APRN.CNP [facility] 05-17-2024 Telephone encounter Note Pt needs to follow up with her clinic charge nurse for elevated TSH. Please add to ob record. \Dina Sanchez APRN.CNP [facility] 05-17-2024 Miscellaneous Notes Pt needs to follow up with her clinic charge nurse for elevated TSH. Please add to ob record. \Dina Sanchez APRN.CNP documented in this encounter [facility] 05-15-2024 Telephone encounter Note Filed Theodora Deluca MD [facility] Work Phone: 05-15-2024 Miscellaneous Notes Filed Theodora Deluca MD Patient 12w6d, here today for NT ultrasound and is asking for blood work to be added for [id number]. Order pended. Laurie Bueno RN documented in this encounter [facility] 05-15-2024 Telephone encounter Note Patient 12w6d, here today for NT ultrasound and is asking for blood work to be added for [id number]. Order pended. Laurie Bueno RN [facility] 04-24-2024 Note HNO ID: [id number] Author: DINA SANCHEZ APRN.[employer] Service: ? Author Type: Nurse Practitioner Type: Progress Notes Filed: 04/24/2024 09:57 Note Text: Malted Milk Masher offered: Patient declines. INITIAL OB ASSESSMENT HPI: Walter is a 24 year old White Female here to establish Obstetrical Care. No LMP recorded (lmp unknown). Patient is . from OB Dating Form. was unplanned but accepted Complaints: (!) Vaginal bleeding, spotting, only has happened 3 times since her positive preg test. Positive test 03/19/2024 OB History Gravida1 Para0 Term0 Preterm0 AB0 Living0 SAB0 IAB0 Ectopic0 Multiple0 Live Births0 Previous history: Prior : never History of 4th degree laceration: NA History of shoulder dystocia: No History of Hypertensive disorders including pre-eclampsia or gestational hypertension: NA History of gestational diabetes: NA Patient's Risk Screening for delivery: Have you had a prior davila between 20w and 36w6d? No How many pregnancies have you had before? 0 Did you have a previous baby with a GBS Infection? No Please select all that apply for any prior : N/A MEDICAL/PSYCHOSOCIAL HISTORY: History of hemorrhage or bleeding concerns: No Thyroid Disease: Yes, hypothyroidism. Had a thyroidectomy. History of chronic hypertension: No History of pre-existing diabetes: No No results found for: ABORHD BMI 42.86 kg/(m2) Last Pap: 08/06/2022 normal History of abnormal pap: Yes Prior treatment for cervical dysplasia: colposcopy. Last HPV: negative History of STDs: None Partner History of STDs: None Did you have a partner with Herpes? No (Partner unknown) Tobacco use: No E-Cigarette/Vaping Use: No Caffeine use: Yes Drug use: No Alcohol use: No Multivitamin with Folic acid: Yes Would refuse blood transfusion if medically necessary: No Social Needs: How often does this describe you? I don't have enough money to pay my bills: Never Within the past 12 months, have you worried that your food would run out before you had money to buy more? Never In the past 12 months, has lack of reliable transportation kept you from going to medical appointments or work, or from getting things needed for daily living? Never In the past 12 months, have you had any concerns about having a place to live, or about the condition or quality of your housing? Never Would you like more information on any of the following (please check all that apply)? Possibly considering. Social History: Do you have any history of depression, anxiety, PTSD, or other mood problems? Yes Do you have a history of abuse or trauma that may impact your experience? No Are you currently employed? Yes Depression/Anxiety Screening: denies symptoms of depression. OB Depression and Anxiety Screening- This Encounter (since 04/23/2024) Over the past 2 weeks have you felt down, depressed, or hopeless? Negative Over the past two weeks, have you felt little interest or pleasure in doing things?? Negative Feeling nervous, anxious or on edge 1-Several days Not being able to stop or control worrying 1-Several days Anxiety Pre-Screening Total (If >/= 3 additional questions will be reviewed) 2 Genetic Screening: Partner present: No Patient verbalized knowledge of partner family health history: No Do you or your partner have any personal or family history of defects not previously discussed: No Do you have history of a complicated by anomaly, genetic condition, or demise: No Preeclampsia Risk Screening: Screening for prevention of preeclampsia: High risk factors: Autoimmune disease (e.g. systemic lupus erythematosus, anti-phospholipid antibody syndrome) Moderate risk ractors: Nulliparity and Obesity (body mass index greater than 30) OB Risk Screening: Completed, no positive findings documented. Marital Status:Single Partner: Name: Rober Lindsey Age: 27 Occupation: [employer] Gender: Male PAST MEDICAL HISTORY Diagnosis Date Hypothyroidism PCOS (polycystic ovarian syndrome) PAST SURGICAL HISTORY Procedure Laterality Date REMOVAL OF THYROID Current Outpatient Medications Medication Sig Dispense Refill PNV no.95/ferrous fum/folic ac ( ORAL) Take by mouth. vit37/iron/folic acid (PRENATA ORAL) Take 1 tablet by mouth once daily. levothyroxine (LEVO-T) 175 mcg tablet Take 175 mcg by mouth daily before breakfast. cholecalciferol, vitamin D3, (VITAMIN D3 ORAL) Take 75 mcg by mouth once daily. Cyanocobalamin (VITAMIN B-12) 2,000 mcg TbER Take 1 tablet by mouth once daily. calcium phosphate dibas/vit D3 (VITAMIN D, WITH CALCIUM, ORAL) Take 2,000 Units by mouth once daily. (Patient not taking: Reported on 04/23/2024) metFORMIN (GLUCOPHAGE) 1,000 mg tablet Take 850 mg by mouth twice daily with meals. (Patient not taking: Reported on 04/23/2024) s (more content not included)... [facility] 04-24-2024 History of Present illness Narrative Malted Milk Masher offered: Patient declines. INITIAL OB ASSESSMENT HPI: Walter is a 24 year old White Female here to establish Obstetrical Care. No LMP recorded (lmp unknown). Patient is . from OB Dating Form. was unplanned but accepted Complaints: (!) Vaginal bleeding, spotting, only has happened 3 times since her positive preg test. Positive test 03/19/2024 OB History Gravida1 Para0 Term0 Preterm0 AB0 Living0 SAB0 IAB0 Ectopic0 Multiple0 Live Births0 Previous history: Prior : never History of 4th degree laceration: NA History of shoulder dystocia: No History of Hypertensive disorders including pre-eclampsia or gestational hypertension: NA History of gestational diabetes: NA Patient's Risk Screening for delivery: Have you had a prior davila between 20w and 36w6d? No How many pregnancies have you had before? 0 Did you have a previous baby with a GBS Infection? No Please select all that apply for any prior : N/A MEDICAL/PSYCHOSOCIAL HISTORY: History of hemorrhage or bleeding concerns: No Thyroid Disease: Yes, hypothyroidism. Had a thyroidectomy. History of chronic hypertension: No History of pre-existing diabetes: No No results found for: ABORHD BMI 42.86 kg/(m^2) Last Pap: 08/06/2022 normal History of abnormal pap: Yes Prior treatment for cervical dysplasia: colposcopy. Last HPV: negative History of STDs: None Partner History of STDs: None Did you have a partner with Herpes? No (Partner unknown) Tobacco use: No E-Cigarette/Vaping Use: No Caffeine use: Yes Drug use: No Alcohol use: No Multivitamin with Folic acid: Yes Would refuse blood transfusion if medically necessary: No Social Needs: How often does this describe you? I don't have enough money to pay my bills: Never Within the past 12 months, have you worried that your food would run out before you had money to buy more? Never In the past 12 months, has lack of reliable transportation kept you from going to medical appointments or work, or from getting things needed for daily living? Never In the past 12 months, have you had any concerns about having a place to live, or about the condition or quality of your housing? Never Would you like more information on any of the following (please check all that apply)? Possibly considering. Social History: Do you have any history of depression, anxiety, PTSD, or other mood problems? Yes Do you have a history of abuse or trauma that may impact your experience? No Are you currently employed? Yes Depression/Anxiety Screening: denies symptoms of depression. OB Depression and Anxiety Screening- This Encounter (since 04/23/2024) Over the past 2 weeks have you felt down, depressed, or hopeless? Negative Over the past two weeks, have you felt little interest or pleasure in doing things? Negative Feeling nervous, anxious or on edge 1-Several days Not being able to stop or control worrying 1-Several days Anxiety Pre-Screening Total (If >/= 3 additional questions will be reviewed) 2 Genetic Screening: Partner present: No Patient verbalized knowledge of partner family health history: No Do you or your partner have any personal or family history of defects not previously discussed: No Do you have history of a complicated by anomaly, genetic condition, or demise: No Preeclampsia Risk Screening: Screening for prevention of preeclampsia: High risk factors: Autoimmune disease (e.g. systemic lupus erythematosus, anti-phospholipid antibody syndrome) Moderate risk ractors: Nulliparity and Obesity (body mass index greater than 30) OB Risk Screening: Completed, no positive findings documented. Marital Status:Single Partner: Name: Rober Lindsey Age: 27 Occupation: [employer] Gender: Male PAST MEDICAL HISTORY Diagnosis Date Hypothyroidism PCOS (polycystic ovarian syndrome) PAST SURGICAL HISTORY Procedure Laterality Date REMOVAL OF THYROID Current Outpatient Medications Medication Sig Dispense Refill PNV no.95/ferrous fum/folic ac ( ORAL) Take by mouth. vit37/iron/folic acid (PRENATA ORAL) Take 1 tablet by mouth once daily. levothyroxine (LEVO-T) 175 mcg tablet Take 175 mcg by mouth daily before breakfast. cholecalciferol, vitamin D3, (VITAMIN D3 ORAL) Take 75 mcg by mouth once daily. Cyanocobalamin (VITAMIN B-12) 2,000 mcg TbER Take 1 tablet by mouth once daily. calcium phosphate dibas/vit D3 (VITAMIN D, WITH CALCIUM, ORAL) Take 2,000 Units by mouth once daily. (Patient not taking: Reported on 04/23/2024) metFORMIN (GLUCOPHAGE) 1,000 mg tablet Take 850 mg by mouth twice daily with meals. (Patient not taking: Reported on 04/23/2024) sertraline (ZOLOFT) 100 mg tablet Take 100 mg by mouth once daily. (Patient not taking: Reported on 04/23/2024) norethindrone (LYZA ORAL) Take by mouth once daily. (Patient not taking: Reported on 04/23/2024) aspirin, enteric coated (ASPIRIN, ENTERIC COATED) 81 mg EC tablet Take 81 mg by mouth once daily. (Patient not taking: Reported on 04/23/2024) No current facility-administered medications for this visit. Allergies As of Date: 04/24/2024 (No Known Allergies) Fully Assessed 04/24/2024 Does patient have penicillin allergy: No REVIEW OF SYSTEMS: GENERAL: Negative for: Fever or Chills HEENT: Negative for: Headache, Impaired Vision, Ringing in Ears, Nosebleeds NECK: Negative for: Swelling, Pain, Stiffness RESPIRATORY: Negative for: Cough, Shortness of breath, Wheezing GASTROINTESTINAL: Negative for: Heartburn, Constipation, Diarrhea, Blood in stool, Vomiting MUSCULOSKELETAL: Negative for: Muscle or joint pain, stiffness, Joint swelling NEUROLOGIC/PSYCHIATRIC: Negative for: Weakness, Paralysis, Numbness, Tingling, Tremor, Anxiety, Depression, Memory loss SKIN: Negative for: Rash, Itching GENITOURINARY: Negative for: vaginal itching, vaginal discharge, hematuria or dysuria SENSITIVE EXAM: The sensitive examination was discussed with the Patient or Patient's Authorized Timber Selector. As applicable, any other physician, advance practice provider, medical student, or other health professional student that will be observing or involved in the sensitive examination for educational or training purposes was discussed with the Patient or Authorized Timber Selector. The Patient or Authorized Timber Selector has agreed to proceed with the sensitive examination. (Sensitive examination includes inspection and/or palpation of the breasts, pelvis, prostate and anorectal regions). PHYSICAL EXAM: BP 122/80 Ht 5' 4.291 (1.63m) Wt 252 lb (114.3kg) BMI 42.86 kg/(m^2). GENERAL: pleasant in no apparent distress DERMATOLOGY: Normal, without lesions, non-icteric, and non-hirsute NECK: Supple, full range of motion, no adenopathy, and thyroid normal CHEST: Normal inspiratory effort BREAST: soft, non-tender, symmetric, no dominant mass, normal nipple-areolar complex, no lymphadenopathy, and no nipple discharge ABDOMEN: soft, non-tender, and no masses NEURO: alert and oriented x3,exam grossly non-focal PELVIS: External genitalia normal without lesions. Perineal body intact. No vaginal or cervical lesions. Cervix closed. No adnexal masses or tenderness. Clinical Pelvimetry: Pelvimetry clinically assessed as adequate Limited OB ultrasound exam: single intrauterine , positive cardiac activity, and POCUS performed. +cardiac activity Dina Sanchez APRN.[employer] Walter Andrade was given the 4's screening tool. Walter answered No to all the questions, the result is determined to be negative. ASSESSMENT: 24 year old at Unknown wks gestational age PLAN: 1) Patient oriented to practice. Patient given new OB orientation folder. Discussed nutrition, folic acid supplementation, dietary guidelines, exercise, smoking, alcohol, caffeine, and drug use. Discussed gestational weight gain guidelines. Discussed routine OB labs including STD/HIV. Discussed how to access Your guide to a health and the Scroll Machine Operator. Reviewed midwifery and customs brokerage agent services that are available. 2) Screening: Hemoglobin A1C: ordered Baby Aspirin: The patient has been counseled about the potential benefits of low dose aspirin in and our recommendation that this be offered to all patients, regardless of whether they meet the high risk criteria specified above. She Accepts Aneuploidy Screening: Discussed aneuploidy screening, nuchal translucency/first trimester early anatomy ultrasound and NIPT. The risks/benefits and limitations of NIPT/aneuploidy screening were reviewed including the potential for false negative and false positive results. The availability of genetic counseling was reviewed. Information on aneuploidy screening was provided. The patient chooses to proceed with First trimester early anatomy ultrasound (12-13w6d) Myriad Carrier Screening: Discussed myriad carrier screening. We discussed the availability of professional-society guided carrier screening and reviewed the conditions screened and limitations of screening. The availability of genetic counseling was reviewed. Information on carrier screening was provided. The patient Declines 3) Patient offered option of Virtual Visits. Patient unsure. May consider in future. 4) Obesity (BMI >30), will order early glucose screen or Hemoglobin A1C. Thyroid Disease: TSH ordered Follow up in 4 weeks or sooner prjamari. Dina Sanchez APRN.CNP documented in this encounter [facility] 04-24-2024 Instructions Sophia Gong MA - 04/24/2024 8:15 AM EST Please select the following link to access the [facility] Your Guide to a Healthy . [email or web address] documented in this encounter [facility] 03-31-2024 Telephone encounter Note See sep msg [facility] 03-31-2024 Miscellaneous Notes See sep msg Patient was identified by name and date of . Abigail June RN Called patient and relayed message. Patient states she takes a multivitamin at the same time as the synthroid. Hasn't missed any doses that she knows of. Waits 1.5 to 2 hours to eat after taking the synthroid. She is wondering if taking the multivitamin at the same time as the synthroid could have raised the level. Attempted to call patient at listed number. Mailbox is full and cannot accept any messages at this time. Pt did not access [employer] message/ results/ please call TSH (thryoid function) 8.163 ASSUMING NO MISSED DOSES X 6W THEN -your dose needs to be INCREASED; current levothyroxine (SYNTHROID) 150 MCG new 175 mcg : rx sent ; recheck labs due in 6+ wks Adore Morales MD Written by Adore Morales MD on 03/24/2024 10:57 AM EST documented in this encounter [facility] 03-29-2024 Telephone encounter Note Patient was identified by name and date of . Abigail June RN Called patient and relayed message. Patient states she takes a multivitamin at the same time as the synthroid. Hasn't missed any doses that she knows of. Waits 1.5 to 2 hours to eat after taking the synthroid. She is wondering if taking the multivitamin at the same time as the synthroid could have raised the level. [facility] 03-28-2024 Telephone encounter Note Attempted to call patient at listed number. Mailbox is full and cannot accept any messages at this time. [facility] 03-27-2024 Telephone encounter Note Pt did not access [employer] message/ results/ please call TSH (thryoid function) 8.163 ASSUMING NO MISSED DOSES X 6W THEN -your dose needs to be INCREASED; current levothyroxine (SYNTHROID) 150 MCG new 175 mcg : rx sent ; recheck labs due in 6+ wks Adore Morales MD Written by Adore Morales MD on 03/24/2024 10:57 AM EST [facility] 03-24-2024 Note Addended by: ADORE MORALES on: 03/24/2024 10:57 AM Modules accepted: Orders [facility] 03-24-2024 History of Present illness Narrative TSH (thryoid function) 8.163 ASSUMING NO MISSED DOSES X 6W THEN -your dose needs to be INCREASED; current levothyroxine (SYNTHROID) 150 MCG new 175 mcg : rx sent ; recheck labs due in 6+ wks Adore Morales MD Identity was confirmed by verifying patient name and date of . Blood drawn for patient. Blood obtained from right arm, using 21 gauge butterfly. Patient denies discomfort, bleeding controlled, bandage applied. Site appears normal. During this visit the vaccine(s) was: Administered Provider received consent from patient/parent/patient parts representative for immunization(s) as ordered, questionnaire completed and VIS educational handouts reviewed with patient/parent/patient parts representative who denies contraindications Double identification of patient completed with patient/parent/patient parts representative using name and prior to administration, and patient tolerated immunization(s) administration without incident. Images from the original note were not included. ?/ * * . Family Medicine /? * * . ... . . * * / \ Adore Morales MD [address] [address] Chief Complaint Patient presents with Test Pt states here today to confirm positive home test. ~~~~~~~~~~~~~~~~~~~~~~~~~~~~~~~ Visit date: 03/23/24 Assessment and Plan and PATIENT INSTRUCTIONS FROM AVS: No follow-ups on file. Patient Instructions Start vitamin Continue to avoid all inhaled produces OB appt soon : ideal around 10-12 wks Flu vaccine given today In 2+ weeks: Strongly recommend NEW Covid booster TSH levels today and recheck once/ trimester ~~Dr Restrepo .?/ ./? ./ \ . * * . ... . . * * . ... . Adore Morales MD . * * . ... . . * * . ... . . * * . ... . . * * . Thank you for your confidence and trust My current schedule : Tuesday and Tuesday [facility] Tuesday [place] Tuesday: Telephone and Video virtual appointments: available all day Online and general scheduling will NOT reflect my true availability MESSAGE ME THRU MYCHART IF NEEDED Please plan to get all REFILLS AT APPOINTMENTS TEST RESULTS :I will always send a detailed result note: Thank you for your patience . * * . ... . . * * . ... . . * * . ... . . * * . ... . . * * . ... . . * * . ... . Handouts: ~~~~~~~~~~~~~~~~~~~~~~~~~~~~~~~~ HPI: Test (Pt states here today to confirm positive home test. ) Vitals: 03/23/24 1051 BP: 131/72 Pulse: 90 Temp: 99.4 F (37.4 C) SpO2: 100% Recent/ past labs and tests rev'd : see cc below Concerns: + home test BF ok / happy (has 2 kids) BF x 6m / intermittent condoms Concern re finances LMP 02/02 Always irregular 7w today Rare etoh Marij Past daily None x 4d Past vape / nicotine : none now x 4d BP Readings from Last 6 Encounters: 03/23/24 131/72 07/20/23 130/75 07/16/23 130/77 07/12/23 101/68 04/06/23 129/76 01/28/23 114/64 Wt Readings from Last 8 Encounters: 03/23/24 258 lb (117 kg) 07/20/23 244 lb (110.7 kg) 07/11/23 250 lb (113.4 kg) 06/13/23 250 lb (113.4 kg) 04/06/23 241 lb 9.6 oz (109.6 kg) 01/28/23 249 lb (112.9 kg) 08/06/22 260 lb (117.9 kg) 06/23/22 263 lb 9.6 oz (119.6 kg) covid VACCINATED Not fully boosted Last visit: Office Visit on 07/21/2023 in SURGERY GENERAL with Vick Kincaid MD for Hypothyroidism, postsurgical; Postoperative follow-up; Change in voice. Most recent visit with ADORE MORALES was on 07/20/2023 Last OV: reviewed / relevant details noted below Relevant past and current data reviewed/ see chart and relevant data copied below-end of note Epic charting revd/ Care Team updated Patient Care Team: Adore Morales MD as PCP - General (Family Medicine) Vick Kincaid MD as Physician (General Surgery) Current Outpatient Medications on File Prior to Visit Medication Sig Dispense Refill fizgsrk-oxjznjluhnjpf-xcmkokyf (Excedrin Extra Strength) 250-250-65 MG TABS tablet Take 2 Tablets by mouth every 6 hours as needed for Pain. Max dose: 8 tabs/24 hours. Do NOT exceed 1g/4h and 4g/day of acetaminophen from all sources. (Patient not taking: Reported on 03/23/2024) 14 Tablet 0 calcium, elemental, (OSCAL,) 500 MG tablet Take 1 Tablet by mouth 3 times daily. (Patient not taking: Reported on 03/23/2024) 90 Tablet 0 acetaminophen (TYLENOL) 500 MG tablet Take 2 Tablets by mouth every 8 hours as needed. 60 Tablet 0 docusate sodium (COLACE) 100 MG capsule Take 1 Capsule by mouth 2 times daily as needed. (Patient not taking: Reported on 03/23/2024) 30 Capsule 0 dyclonine (Sucrets Sore Throat) 2 MG lozenge 1 Lozenge in the mouth every 2 hours as needed. (Patient not taking: Reported on 03/23/2024) 18 Lozenge 0 ibuprofen (MOTRIN) 800 MG tablet Take 1 Tablet by mouth every 8 hours as needed. (Patient not taking: Reported on 03/23/2024) 30 Tablet 0 levothyroxine (SYNTHROID) 150 MCG tablet Take 1 Tablet by mouth daily (30 minutes before breakfast). 90 Tablet 3 Multiple Vitamins-Minerals (Multivitamin Gummies Womens) CHEW (Patient not taking: Reported on 03/23/2024) vitamin D, Cholecalciferol, 25 MCG (1000 UT) TABS tablet Take 3 Tablets by mouth daily. 270 Tablet 4 Cyanocobalamin (B-12) 2500 MCG TABS Take 1 Tablet by mouth daily. 90 Tablet 4 No current facility-administered medications on file prior to visit. Reviewed PMH / FH/ SH Significant for: see HPI Past Medical History: Diagnosis Date ADHD (attention deficit hyperactivity disorder) 2019 Multiple thyroid nodules 10/10/2022 US 09/2022 Several nodules One : FNA recommended US : repeat in 1 yr PCOS (polycystic ovarian syndrome) Vitamin B 12 deficiency 08/06/2022 Vitamin D deficiency 08/06/2022 Past Surgical History: Procedure Laterality Date THYROIDECTOMY, TOTAL N/A 07/11/2023 Procedure: THYROIDECTOMY, TOTAL WITH RESECTION LEFT SUBSTERNAL NODULE, CERVICAL APPROACH; Surgeon: Vick Kincaid MD; Location: PERIOPERATIVE SERVICES; Service: General Family History Problem Relation Age of Onset Depression Mother Psychiatric Condition Mother Miscarriage Mother Alcoholism Father Hearing Loss Father Hypertension Father Hearing Loss Maternal Grandfather Cancer Maternal Grandmother Psychiatric Condition Maternal Grandmother Stroke Maternal Grandmother Diabetes Mellitus Paternal Grandfather Cancer Paternal Grandmother Asthma Brother Asthma Sister Depression Sister Psychiatric Condition Sister Miscarriage Sister Cancer Maternal Uncle Depression Maternal Aunt Psychiatric Condition Maternal Aunt Hearing Loss Paternal Uncle Immunization History Administered Date(s) Administered DTP (CVX=01) 1998, 1998, 1998 DTaP, unspecified formulation (FHI=687) 02/09/2000, 04/20/2002 HPV, 9-valent (Gardasil 9) (NQY=289) 06/23/2022, 08/06/2022, 07/20/2023 Hep B (peds/adol, 3-dose) (CVX=08) 1998, 1998, 04/17/1999 Hep B/HIB (Comvax) (CVX=51) 02/09/2000 Hib, unspecified formulation (CVX=17) 1998, 1998, 1998 MMR, Eqgnlik-Oalwm-Gpwhlpd (CVX=03) 07/10/1999, 04/20/2002 Meningococcal conjugate (MCV4,Men-ACWY), Menactra (MCV4P) (FAO=874) 04/28/2010, 06/16/2015 Pfizer Monovalent (12+ yrs) SARS-COV-2 (COVID-19) vaccine, mRNA, spike protein, LNP, pres. free, 30 mcg/0.3mL dose (SSL=563) 08/01/2020, 08/22/2020 Pneumococcal conjugate 20 valent (PCV20), polysaccharide [id number] conjugate, adjuvant, PF (TPZ=253) 08/06/2022 Polio, inactivated (IPV) (CVX=10) 04/20/2002 Polio, unspecified formulation (CVX=89) 1998, 1998, 07/10/1999 Tdap (ZGS=100) 04/28/2010, 08/01/2020 Varicella (Chickenpox) (CVX=21) 04/17/2001 Pended Date(s) Pended Influenza, injectable, trivalent, preservative free (LAZ=247) 03/23/2024 Destinaravindnicole was seen today for test. Diagnoses and all orders for this visit: Less than 8 weeks gestation of (HCC) Amenorrhea - URINE HCG-IN OFFICE Post-surgical hypothyroidism - TSH; Future Other orders - Vit-Fe Fumarate-FA ( rx generic vitamin) 1 MG TABS with 1 mg folic acid tablet; Take 1 Tablet by mouth daily. - INFLUENZA VACCINE, TRIVALENT, SPLIT, PRESERVATIVE FREE, IM USE (0.5ML,IM,ONCE) PATIENT INSTRUCTIONS FROM AVS Noted at TOP of this note ROS in addition to HPI: NA Physical exam Vitals: 03/23/24 1051 BP: 131/72 Pulse: 90 Temp: 99.4 F (37.4 C) SpO2: 100% GENERAL APPEARANCE: alert and oriented, NAD. EYES: PERRL, EOMI, no scleral icterus, conjunctiva clear. NECK/THYROID: visually WNL. RESPIRATORY: calm, unlabored SKIN: visually Normal Physical Exam Adore Morales MD 03/23/24 . * * . ... . . * * . ... . . * * . * * . ... . . * * . ... . . * * . Time-based billing justifications: Reviewing (chart, labs, and other clinical notes) Obtaining history (or reviewing separately obtained history) Patient visit (including performing a medically appropriate exam) Counseling/educating the patient/family/caregiver Ordering (medications, tests, procedures - including independent interpretation of results when not reported separately) Referring/communicating with other health cardiac care nurse - when not reported separately Charting in [facility] ~~~~~~~~~~~~~~~~~~~~~~~~~~~~~~~~~~~ ~~~~~~~~ Relevant Past Data ~~~~recent past visits/ consult :partial copy/ edited for clarity & brevity~~~~~~~~~~~~~~~~~~ Precharting [facility] chart review: past visits/ consults /labs / imaging Chart reviewed There are no future appointments scheduled with me. Most recent visit with ADORE MORALES was on 07/20/2023 Chief Complaint Patient presents with ER follow-up Patient is here for a ED FU from July 15, for migraines, it was a consistent from when she had her surgery, her headache stopped once she was at the hospital and they gave her a headache cocktail she doesn't have one currently but she feels like one is just waiting to come. ~~~~~~~~~~~~~~~~~~~~~~~~~~~~~~~ Visit date: 07/20/23 Assessment and Plan and PATIENT INSTRUCTIONS FROM AVS: Follow up if symptoms worsen or fail to improve. Patient Instructions Hpv #3 today Your headaches are improved since ER visit They are likely multifactorial including anesthesia, daily acetaminophen and ibuprofen, stopping vaping and daily marijuana Recommend stopping all byiq-grk-jdafhue medications Continue to avoid a vaping nicotine: Quit. Recommend avoiding daily marijuana use Alert me if had headaches recur See SENIOR PATROL AGENT as planned ~~~~~~~~~~~~~~~~~~~~~~~~~~~~~~ HPI: ER follow-up (Patient is here for a ED FU from July 15, for migraines, it was a consistent from when she had her surgery, her headache stopped once she was at the hospital and they gave her a headache cocktail she doesn't have one currently but she feels like one is just waiting to come. ) Vitals: 07/20/23 1627 BP: 130/75 Pulse: 111 SpO2: 99% Recent/ past labs and tests rev'd : see cc below Concerns: CM gone Past migraine x 1 2015 Notes if sneezes : some residula Overall CM gone Yesterday had mild recurrence: resolved Since acetaminophen q8hr Ibu q8hrs Taking it routinely since surg No vap : nicotine Also past weed / daily Surg 07/10 Threw out back sev weeks Some LBP since covid VACCINATED not fully boosted Office Visit 07/21/2023 [facility] Surgery General Vick Kincaid MD General Surgery Postoperative follow-up +2 more Dx Post-op Follow-up Reason for Visit Progress Notes Vick Kincaid MD (Physician) General Surgery The patient underwent 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 Her serum calcium level on postoperative day 1. Was 9.3 mg/dL. She was discharged home on 500 mg of Oscal 3 times a day. She had a follow-up basic metabolic panel on July 16, 2023 and her serum calcium level was 10.7 mg/dL. She was also started on a replacement dose of levothyroxine 0.15 mg daily. The patient reports that she is noticed change in her voice. She is unable to talk loud and she can not sing. She has no symptoms of hypocalcemia. She reported that she had a bad migraine headache after surgery and went to the emergency department where she received treatment. This has since resolved. On my examination her incision was intact and healing well. The Steri-Strips have been removed. She had no Chvostek sign. My impression is the patient has postsurgical hypothyroidism. Her benign multinodular goiter has been adequately treated. Plan: I recommended that she stop her calcium supplementation. I ordered a follow-up screening serum TSH level for 1 month from now. I will make arrangements for her to see Isamar Lloyd CNP in 3-6 months to reassess the status of her voice. I indicated to the patient that if she has persistent change in her voice, that I will recommend that she see 1 of our ear nose and throat specialists for laryngoscopic exam. Addendum: 08/26/2023 TSH 2.684 BMP (last 3 years, up to 8 values) 07/16/2023 07/12/2023 06/21/2023 06/23/2022 3:22 PM 2:10 AM 10:02 AM 2:25 PM Na 137 -- 140 139 K 4.2 -- 4.0 4.3 Cl 101 -- 104 102 CO2 25 -- 26 25 Gap 15 -- 14 16 Glu 122 -- 90 81 BUN 13 -- 15 10 Cr 0.81 -- 0.71 0.65 Ca 10.7 9.3 10.3 9.7 eGFR 103 -- 121 126 LFT's (last 3 years, up to 8 values) 06/21/2023 06/23/2022 10:02 AM 2:25 PM T Prot 6.9 7.3 Albumin 4.3 4.4 D Bili 0.05 0.10 T Bili 0.3 0.5 Alk Phos 76 80 ALT 14 27 AST 13 19 No results found for: HBA1C CBC (last 3 years, up to 8 values) 07/16/2023 06/21/2023 06/23/2022 3:22 PM 10:02 AM 2:25 PM WBC 11.7 8.5 8.2 RBC 4.96 4.56 4.64 Hgb 13.9 13.0 13.5 Hct 42.3 38.9 39.8 MCV 85 85 86 RDW 14.0 14.1 14.2 Plt 330 255 276 Lab Results Component Value Date TSH 2.684 08/29/2023 TSH 4.435 06/21/2023 TSH 1.654 06/23/2022 Vitamin D, 25-OH (ng/mL) Date Value 06/21/2023 28 (L) 06/23/2022 22.0 (L) Vitamin B12 (pg/mL) Date Value 06/21/2023 1,534 ~~~~~~~~~~~~~~~~~~~~~~~~~~~~~~~~~~~ ~~~~~~~~ Relevant Past Data Above /between red lines. Please review NOTE from beginning: Plan at the top. .?/ ./? ./ \ . * * . ... . . * * . Adore Morales MD . * * . ... . . * * .. * * . ... . . * * . Adore Morales MD documented in this encounter [facility] 03-24-2024 Miscellaneous Notes Addended by: ADORE MORALES on: 03/24/2024 10:57 AM Modules accepted: Orders documented in this encounter [facility] 03-23-2024 Instructions Annabella Young MA - 03/23/2024 11:12 AM EST Start vitamin Continue to avoid all inhaled produces OB appt soon : ideal around 10-12 wks Flu vaccine given today In 2+ weeks: Strongly recommend NEW Covid booster TSH levels today and recheck once/ trimester ~~Dr Lauro Pena?/ ./? ./ \ . * * . ... . . * * . ... . Adore Morales MD . * * . ... . . * * . ... . . * * . ... . . * * . Thank you for your confidence and trust My current schedule : Tuesday and Tuesday [place], [place] Tuesday: Telephone and Video virtual appointments: available all day Online and general scheduling will NOT reflect my true availability MESSAGE ME THRU MYCHART IF NEEDED Please plan to get all REFILLS AT APPOINTMENTS TEST RESULTS :I will always send a detailed result note: Thank you for your patience . * * . ... . . * * . ... . . * * . ... . . * * . ... . . * * . ... . . * * . ... . Today the following vaccines were administered: Influenza, inactivated and recombinant (IIV and ILIR). Vaccines may have different side effects and care recommendations. Please refer to the Vaccine Information Sheet(s) (VIS) provided in your preferred language to learn more about the vaccines that were administered today. If you have any problems or questions, please call the [facility] line at [phone]. The following attachments cannot be sent through Care Everywhere.How to plan and prepare for a healthy (Polish) The First Month (Polish) care (Polish)documented in this encounter [facility] 07-21-2023 Note Addended by: VICK KINCAID on: 07/21/2023 10:59 AM Modules accepted: Orders [facility] 07-21-2023 Note Addended by: VICK KINCAID on: 07/21/2023 10:59 AM Modules accepted: Orders [facility] 07-21-2023 Note Addended by: VICK KINCAID on: 07/21/2023 10:59 AM Modules accepted: Orders [facility] 07-21-2023 Note Addended by: VICK KINCAID on: 07/21/2023 10:59 AM Modules accepted: Orders [facility] 07-21-2023 Miscellaneous Notes Addended by: VICK KINCAID on: 07/21/2023 10:59 AM Modules accepted: Orders documented in this encounter [facility] 07-21-2023 History of Present illness Narrative The patient underwent 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 Her serum calcium level on postoperative day 1. Was 9.3 mg/dL. She was discharged home on 500 mg of Oscal 3 times a day. She had a follow-up basic metabolic panel on July 16, 2023 and her serum calcium level was 10.7 mg/dL. She was also started on a replacement dose of levothyroxine 0.15 mg daily. The patient reports that she is noticed change in her voice. She is unable to talk loud and she can not sing. She has no symptoms of hypocalcemia. She reported that she had a bad migraine headache after surgery and went to the emergency department where she received treatment. This has since resolved. On my examination her incision was intact and healing well. The Steri-Strips have been removed. She had no Chvostek sign. My impression is the patient has postsurgical hypothyroidism. Her benign multinodular goiter has been adequately treated. Plan: I recommended that she stop her calcium supplementation. I ordered a follow-up screening serum TSH level for 1 month from now. I will make arrangements for her to see Isamar Lloyd CNP in 3-6 months to reassess the status of her voice. I indicated to the patient that if she has persistent change in her voice, that I will recommend that she see 1 of our ear nose and throat specialists for laryngoscopic exam. 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 Her serum calcium level on postoperative day 1. Was 9.3 mg/dL. She was discharged home on 500 mg of Oscal 3 times a day. She had a follow-up basic metabolic panel on July 16, 2023 and her serum calcium level was 10.7 mg/dL. She was also started on a replacement dose of levothyroxine 0.15 mg daily. The patient reports that she is noticed change in her voice. She is unable to talk loud and she can not sing. She has no symptoms of hypocalcemia. She reported that she had a bad migraine headache after surgery and went to the emergency department where she received treatment. This has since resolved. On my examination her incision was intact and healing well. The Steri-Strips have been removed. She had no Chvostek sign. My impression is the patient has postsurgical hypothyroidism. Her benign multinodular goiter has been adequately treated. Plan: I recommended that she stop her calcium supplementation. I ordered a follow-up screening serum TSH level for 1 month from now. I will make arrangements for her to see Isamar Lloyd CNP in 3-6 months to reassess the status of her voice. I indicated to the patient that if she has persistent change in her voice, that I will recommend that she see 1 of our ear nose and throat specialists for laryngoscopic exam. Addendum: 08/26/2023 TSH 2.684 documented in this encounter [facility] 07-20-2023 Instructions Darya Hills - 07/20/2023 4:46 PM EDT Hpv #3 today Your headaches are improved since ER visit They are likely multifactorial including anesthesia, daily acetaminophen and ibuprofen, stopping vaping and daily marijuana Recommend stopping all xtei-oiv-inazhlp medications Continue to avoid a vaping nicotine: Quit. Recommend avoiding daily marijuana use Alert me if had headaches recur See SENIOR PATROL AGENT as planned ~~Dr Restrepo .?/ ./? ./ \ . * * . ... . . * * . ... . Adore Morales MD . * * . ... . . * * . ... . . * * . ... . . * * . Thank you for your confidence and trust My current schedule : Tuesday and Tuesday [facility] Tuesday: Telephone and Video virtual appointments: available all day Online and general scheduling will NOT reflect my true availability MESSAGE ME THRU MYCHART IF NEEDED Please plan to get all REFILLS AT APPOINTMENTS TEST RESULTS :I will always send a detailed result note: Thank you for your patience . * * . ... . . * * . ... . . * * . ... . . * * . ... . . * * . ... . . * * . ... . Today the following vaccines were administered: Human Papilloma Virus (HPV). Vaccines may have different side effects and care recommendations. Please refer to the Vaccine Information Sheet(s) (VIS) provided in your preferred language to learn more about the vaccines that were administered today. If you have any problems or questions, please call the [facility] line at [phone]. documented in this encounter [facility] 07-20-2023 History of Present illness Narrative Images from the original note were not included. ..?/ Family Medicine ../? * * . ... . . * * . / \ Adore Morales MD [facility] [id number] [facility] [id number] Chief Complaint Patient presents with ER follow-up Patient is here for a ED FU from July 15, for migraines, it was a consistent from when she had her surgery, her headache stopped once she was at the hospital and they gave her a headache cocktail she doesn't have one currently but she feels like one is just waiting to come. ~~~~~~~~~~~~~~~~~~~~~~~~~~~~~~~ Visit date: 07/20/23 Assessment and Plan and PATIENT INSTRUCTIONS FROM AVS: Follow up if symptoms worsen or fail to improve. Patient Instructions Hpv #3 today Your headaches are improved since ER visit They are likely multifactorial including anesthesia, daily acetaminophen and ibuprofen, stopping vaping and daily marijuana Recommend stopping all feit-tod-drunubq medications Continue to avoid a vaping nicotine: Quit. Recommend avoiding daily marijuana use Alert me if had headaches recur See SENIOR PATROL AGENT as planned ~~Dr Restrepo .?/ ./? ./ \ . * * . ... . . * * . ... . Adore Morales MD . * * . ... . . * * . ... . . * * . ... . . * * . Thank you for your confidence and trust My current schedule : Tuesday and Tuesday [place], [place] Tuesday: Telephone and Video virtual appointments: available all day Online and general scheduling will NOT reflect my true availability MESSAGE ME THRU MYCHART IF NEEDED Please plan to get all REFILLS AT APPOINTMENTS TEST RESULTS :I will always send a detailed result note: Thank you for your patience . * * . ... . . * * . ... . . * * . ... . . * * . ... . . * * . ... . . * * . ... . ~~~~~~~~~~~~~~~~~~~~~~~~~~~~~~~~ HPI: ER follow-up (Patient is here for a ED FU from July 15, for migraines, it was a consistent from when she had her surgery, her headache stopped once she was at the hospital and they gave her a headache cocktail she doesn't have one currently but she feels like one is just waiting to come. ) Vitals: 07/20/23 1627 BP: 130/75 Pulse: 111 SpO2: 99% Recent/ past labs and tests rev'd : see cc below Concerns: CM gone Past migraine x 1 2015 Notes if sneezes : some residula Overall CM gone Yesterday had mild recurrence: resolved Since acetaminophen q8hr Ibu q8hrs Taking it routinely since surg No vap : nicotine Also past weed / daily Surg 07/10 Threw out back sev weeks Some LBP since covid VACCINATED not fully boosted Last visit: Nurse Visit on 06/13/2023 in PRE ADMISSION TESTING with Ale Marinelli RN for Pre-op evaluation. Most recent visit with ADORE MORALES was on 08/06/2022 Last OV: reviewed / relevant details noted below Relevant past and current data reviewed/ see chart and relevant data copied below-end of note Epic charting revd/ Care Team updated Patient Care Team: Adore Morales MD as PCP - General (Family Medicine) Vick Kincaid MD as Physician (General Surgery) Kajal Khan RN as Director Of Rehabilitative Services (Care Management) Current Outpatient Medications on File Prior to Visit Medication Sig Dispense Refill [id number]-fbbxrnafuvypp-llwbzlfq (Excedrin Extra Strength) 250-250-65 MG TABS tablet Take 2 Tablets by mouth every 6 hours as needed for Pain. Max dose: 8 tabs/24 hours. Do NOT exceed 1g/4h and 4g/day of acetaminophen from all sources. 14 Tablet 0 calcium, elemental, (OSCAL,) 500 MG tablet Take 1 Tablet by mouth 3 times daily. 90 Tablet 0 acetaminophen (TYLENOL) 500 MG tablet Take 2 Tablets by mouth every 8 hours as needed. 60 Tablet 0 docusate sodium (COLACE) 100 MG capsule Take 1 Capsule by mouth 2 times daily as needed. 30 Capsule 0 dyclonine (Sucrets Sore Throat) 2 MG lozenge 1 Lozenge in the mouth every 2 hours as needed. 18 Lozenge 0 ibuprofen (MOTRIN) 800 MG tablet Take 1 Tablet by mouth every 8 hours as needed. 30 Tablet 0 levothyroxine (SYNTHROID) 150 MCG tablet Take 1 Tablet by mouth daily (30 minutes before breakfast). 90 Tablet 3 Multiple Vitamins-Minerals (Multivitamin Gummies Womens) CHEW (Patient not taking: Reported on 07/20/2023) vitamin D, Cholecalciferol, 25 MCG (1000 UT) TABS tablet Take 3 Tablets by mouth daily. 270 Tablet 4 Cyanocobalamin (B-12) 2500 MCG TABS Take 1 Tablet by mouth daily. 90 Tablet 4 No current facility-administered medications on file prior to visit. Reviewed PMH / FH/ SH Significant for: see HPI Past Medical History: Diagnosis Date ADHD (attention deficit hyperactivity disorder) 2019 Multiple thyroid nodules 10/10/2022 US 09/2022 Several nodules One : FNA recommended US : repeat in 1 yr PCOS (polycystic ovarian syndrome) Vitamin B 12 deficiency 08/06/2022 Vitamin D deficiency 08/06/2022 Past Surgical History: Procedure Laterality Date THYROIDECTOMY, TOTAL N/A 07/11/2023 Procedure: THYROIDECTOMY, TOTAL WITH RESECTION LEFT SUBSTERNAL NODULE, CERVICAL APPROACH; Surgeon: Vick Kincaid MD; Location: PERIOPERATIVE SERVICES; Service: General Family History Problem Relation Age of Onset Depression Mother Psychiatric Condition Mother Miscarriage Mother Alcoholism Father Hearing Loss Father Hypertension Father Hearing Loss Maternal Grandfather Cancer Maternal Grandmother Psychiatric Condition Maternal Grandmother Stroke Maternal Grandmother Diabetes Mellitus Paternal Grandfather Cancer Paternal Grandmother Asthma Brother Asthma Sister Depression Sister Psychiatric Condition Sister Miscarriage Sister Cancer Maternal Uncle Depression Maternal Aunt Psychiatric Condition Maternal Aunt Hearing Loss Paternal Uncle Immunization History Administered Date(s) Administered DTP (CVX=01) 1998, 1998, 1998 DTaP, unspecified formulation (SDH=318) 02/09/2000, 04/20/2002 HPV, 9-valent (Gardasil 9) (KXJ=396) 06/23/2022, 08/06/2022 Hep B (peds/adol, 3-dose) (CVX=08) 1998, 1998, 04/17/1999 Hep B/HIB (Comvax) (CVX=51) 02/09/2000 Hib, unspecified formulation (CVX=17) 1998, 1998, 1998 MMR, Ajuyeuz-Bcjgv-Mrhnsqq (CVX=03) 07/10/1999, 04/20/2002 Meningococcal conjugate (MCV4,Men-ACWY), Menactra (MCV4P) (VMS=746) 04/28/2010, 06/16/2015 Pfizer Monovalent (12+ yrs) SARS-COV-2 (COVID-19) vaccine, mRNA, spike protein, LNP, pres. free, 30 mcg/0.3mL dose (ESJ=018) 08/01/2020, 08/22/2020 Pneumococcal conjugate 20 valent (PCV20), polysaccharide NCY175 conjugate, adjuvant, PF (KED=980) 08/06/2022 Polio, inactivated (IPV) (CVX=10) 04/20/2002 Polio, unspecified formulation (CVX=89) 1998, 1998, 07/10/1999 Tdap (NNP=587) 04/28/2010, 08/01/2020 Varicella (Chickenpox) (CVX=21) 04/17/2001 Pended Date(s) Pended HPV, 9-valent (Gardasil 9) (LZF=095) 07/20/2023 Walter was seen today for er follow-up. Diagnoses and all orders for this visit: Acute nonintractable headache, unspecified headache type Vapes nicotine containing substance Marijuana use Medication management Multiple thyroid nodules Comments: pod #8 thyroidectomy Other orders - HUMAN PAPILLOMA VIRUS VACCINE,TYPES 6,11,16,18,31,33,45,52,58 (9-VALENT) PATIENT INSTRUCTIONS FROM AVS Noted at TOP of this note ROS in addition to HPI: NA Physical exam Vitals: 07/20/23 1627 BP: 130/75 Pulse: 111 SpO2: 99% GENERAL APPEARANCE: alert and oriented, NAD. EYES: PERRL, EOMI, no scleral icterus, conjunctiva clear. NECK/THYROID: visually WNL. RESPIRATORY: calm, unlabored SKIN: visually Normal Physical Exam Adore Morales MD 07/20/23 . * * . ... . . * * . ... . . * * . * * . ... . . * * . ... . . * * . Time-based billing justifications: Reviewing (chart, labs, and other clinical notes) Obtaining history (or reviewing separately obtained history) Patient visit (including performing a medically appropriate exam) Counseling/educating the patient/family/caregiver Ordering (medications, tests, procedures - including independent interpretation of results when not reported separately) Referring/communicating with other health cardiac care nurse - when not reported separately Charting in Epic ~~~~~~~~~~~~~~~~~~~~~~~~~~~~~~~~~~~ ~~~~~~~~ Relevant Past Data ~~~~recent past visits/ consult :partial copy/ edited for clarity & brevity~~~~~~~~~~~~~~~~~~ Precharting [facility] chart review: past visits/ consults /labs / imaging Revd 23-year-old female presenting to the emergency room for evaluation of headache. Patient states that she had a thyroidectomy on July 11, 2023 and has had a mild headache since. Patient states headache is on the right side. She endorses photophobia with this. No nausea or vomiting. No fever. No neck pain. No pain with movement. No blurred vision or double vision. No numbness or tingling to upper or lower extremities. No speech difficulty. She was seen in [facility] and was treated with Excedrin however was advised to return in the emergency room if CM did not improve. Denies that this is the worse headache of her life. Denies thunderclap onset. Reports that pain right now is 4/10. Excedrin migraine does help the pain however does not resolve completely. Denies history of migraines. Management Decisions: CT head considered but not performed due to not worst headache of life, not thunderclap onset, no neuro deficits and low concern for SAH or other life threatening process ourse: ED Course as of 07/16/23 1828 Sat July 16, 2023 1502 Vital signs reviewed. Normotensive, afebrile, tachycardia noted, no tachypnea, not hypoxic. [BJ] 1534 CBC with slight leukocytosis. [BJ] 1557 Magnesium: 1.9 [BJ] 1557 BMP with elevated calcium, no ROBERT or electrolyte abnormalities. [BJ] 1634 Re-assessed, updated on labs. CM has resolved [JS] 1743 Heart Rate: 78 [BJ] 1743 Respiratory Rate: 16 [BJ] 1743 Patient reports headache is resolved. Will DC home at this time [BJ] ED Course User Index [BJ] Erin Littlejohn, MOTION PICTURE CAMERAMAN-COOKER SULFITE [JS] Darius Franco MD Assessment & Plan: 23 year old female presenting to the ED for persistent headache since thyroidectomy 4/29/24. Well appearing on exam. Not worst headache of life or thunderclap onset. A&Ox3, PEERL. Neck is supple without rigidity, pain with ROM. No fever. Patient was treated with Toradol, Reglan and Tylenol as well as IVF in the ED with resolve of her headache. Patient remains neurologically intact without change in symptoms. Advised on symptom management and recommend follow up with PCP. Discussed at length strict return to ED precautions with patient who verbalized understanding and was in agreement with the plan. TELEHEATH VIRTUAL VISIT see full documentation at end of note Chief Complaint Patient presents with Discuss results test/procedures ~~~~~~~~~~~~~~~~~~~~~~~~~~~~~~~~~~~ ~~~~~~~~ 06/28/23 Assessment and Plan and PATIENT INSTRUCTIONS FROM AVS Follow up in about 2 months (around 08/28/2023) for in-person visit : cpe /pap. Vitamin B 12 deficiency Improved w oral supplemetn : continue this Vitamin D deficiency Continue supplement Patient Instructions Vitamin B12 (pg/mL) Date Value 06/21/2023 1,534 06/23/2022 250 (L) after oral supplement. continue daily oral supplement indefinitely Vitamin D, 25-OH (ng/mL) Date Value 06/21/2023 28 (L) 06/23/2022 22.0 (L) (continue supplements) Recent labs: See General explanation below The following were out of range TSH : borderline SLOW metabolism/ HYPOthyroid : Consider Rx supplement Repeat labs after thyroidectomy : timing per surgeons recommendations HPV #3 due : ordered : can get at follow up Hepatitis A and Hepatitis B Vaccines --new recommendations: : you likely had one or both of theses: get us vaccine records if able ~~~~~~~~~~~~~~~~~~~~~~~~~~~~~~~~~~~ ~~~~~~~ HPI: Discuss results test/procedures Past/ recent labs and test reviewed Concerns: surgery soon Taking supplements Discussed hypothyroid Due for HPV #3 :no need to lamar Pap due end fo July /August CBC (last 3 years, up to 5 values) WBC RBC Hgb Hct MCV RDW Plt 07/16/23 1522 11.7 4.96 13.9 42.3 85 14.0 330 06/21/23 1002 8.5 4.56 13.0 38.9 85 14.1 255 06/23/22 1425 8.2 4.64 13.5 39.8 86 14.2 276 Basic Metabolic Panel Na K Cl CO2 Gap Glu BUN Cr Ca 07/16/23 1522 137 4.2 101 25 15 122 13 0.81 10.7 07/12/23 0210 9.3 06/21/23 1002 140 4.0 104 26 14 90 15 0.71 10.3 06/23/22 1425 139 4.3 102 25 16 81 10 0.65 9.7 ~~~~~~~~~~~~~~~~~~~~~~~~~~~~~~~~~~~ ~~~~~~~~ Relevant Past Data Above /between red lines. Please review NOTE from beginning: Plan at the top. .?/ ./? ./ \ . * * . ... . . * * . Adore Morales MD . * * . ... . . * * .. * * . ... . . * * . Adore Morales MD Identification was verified by patient verbalizing her name and date of . During this visit the vaccine(s) was: Administered Provider received consent from patient/parent/patient parts representative for immunization(s) as ordered, questionnaire completed and VIS educational handouts reviewed with patient/parent/patient parts representative who denies contraindications. Double identification of patient completed with patient/parent/patient parts representative using name and prior to administration, and patient tolerated immunization(s) administration without incident. documented in this encounter [facility] 07-18-2023 Telephone encounter Note Emergency/CDU-Observation Room Follow Up Call Date and Reason for ED visit: 07/16/23 Headache Patient/Family contact reached: Yes Patient ID by name,address and . ID myself and role of Flame Brazing Machine Operator Medical coverage: Payor: [employer] / Plan: [employer] MEDICAID HMO / Product Type: Medicaid HMO Current symptoms or concerns: Pt feeling better today No new symptoms Discharge AVS Instructions Reviewed: Yes Discharge Medications: None Has medication(s) been picked up from the pharmacy? N/a Recommendations for follow up: Pt to follow up with PCP Accepted Flame Brazing Machine Operator's offer to schedule appt.? Yes Follow up Appointments: Future Appointments (next 10) Provider Department Center 07/20/2023 4:20 PM (Arrive by 4:10 PM) Adore Morales MD [facility] 07/22/2023 9:00 AM Vick Kincaid MD [facility] 10/04/2023 10:45 AM Perfecto Cam MD [facility] SENIOR OFFICER [employer] Transportation: yes Patient verbalized understanding by repeating instructions correctly and agrees with Plan of Care as discussed above. Referred to Grocery Checker: No Barriers or Concerns:No Dental Care Screening: Have you been to the dentist within the year :NA If no, can I assist with making you an appointment: NA SDOH Reviewed:Yes Letter mailed:No [facility] 07-18-2023 Miscellaneous Notes Emergency/CDU-Observation Room Follow Up Call Date and Reason for ED visit: 07/16/23 Headache Patient/Family contact reached: Yes Patient ID by name,address and . ID myself and role of Flame Brazing Machine Operator Medical coverage: Payor: [employer] / Plan[facility] / Product Type: Medicaid HMO Current symptoms or concerns: Pt feeling better today No new symptoms Discharge AVS Instructions Reviewed: Yes Discharge Medications: None Has medication(s) been picked up from the pharmacy? N/a Recommendations for follow up: Pt to follow up with PCP Accepted Flame Brazing Machine Operator's offer to schedule appt.? Yes Follow up Appointments: Future Appointments (next 10) Provider Department Center 07/20/2023 4:20 PM (Arrive by 4:10 PM) Adore Morales MD [facility] [address] 07/22/2023 9:00 AM Vick Kincaid MD [facility] Surgery [facility] 10/04/2023 10:45 AM Perfecto Cam MD [facility] SENIOR OFFICER [employer] Transportation: yes Patient verbalized understanding by repeating instructions correctly and agrees with Plan of Care as discussed above. Referred to Grocery Checker: No Barriers or Concerns:No Dental Care Screening: Have you been to the dentist within the year :NA If no, can I assist with making you an appointment: DUNIA SDOH Reviewed:Yes Letter mailed:No documented in this encounter [facility] 07-16-2023 Hospital Discharge instructions Erin Littlejohn APRN-CNP - 07/16/2023 5:39 PM EDT Headache Instructions: Return to the ED if your headache worsens, you develop weakness or numbness on one side of the body or the other, you develop blurred vision or difficulty with speech. Procedures done during this visit: None The following attachments cannot be sent through Care Everywhere.How to Keep Track of Your Headaches (Polish)Headache, Adult ED (Polish)documented in this encounter [facility] 07-16-2023 Telephone encounter Note Situation: Caller is still having a bad headache since surgery. was told by her doctor if she still has a headache on Tuesday she needs to go to ED but she didn't go, was given medication but it didn't help her. Background: Caller is Post Op Pt; had surgery on 07/11/2023, had Thyroidectomy, total with resection left substernal nodule, cervical approach. Assessment: Offered triage; caller declined. Recommendation: Told caller that she needs to go to ED for evaluation and treatment now. Caller will go to [facility] ED. Stressed importance of getting medical attention as advised. Information sent to Surgeon and clinical pool as update. Thank you. Dina Bradley, RN, RN [facility] 07-16-2023 Miscellaneous Notes Situation: Caller states is still having a bad headache since surgery. States was told by her doctor if she still has a headache on Tuesday she needs to go to ED but she didn't go, was given medication but it didn't help her. Background: Caller is Post Op Pt; had surgery on 07/11/2023, had Thyroidectomy, total with resection left substernal nodule, cervical approach. Assessment: Offered triage; caller declined. Recommendation: Told caller that she needs to go to ED for evaluation and treatment now. Caller states will go to [facility] ED. Stressed importance of getting medical attention as advised. Information sent to Surgeon and clinical pool as update. Thank you. Dina Bradley RN, RN documented in this encounter [facility] 07-14-2023 Telephone encounter Note NB ~~thank you ~~K [facility] 07-14-2023 Miscellaneous Notes NB ~~thank you ~~K I spoke to patient who reports new headache since surgery. She has no prior history of headaches. She is other asymptomatic and recovering as expected. She had tried tylenol and motrin with little relief. She we prescribed Excedrin today but has not tried it yet. I advised she try the excedrin as prescribed and if it is not effective to follow up with her PCP or in the ED if her symptoms worsen. I indicated this is likely not related to surgery. Situation: Headache post thyroidectomy Background: Sx 07/10 Dr Kincaid headache started then, worse in the last 2 days Assessment: See triage below. Worse with bending over, felt clicking in nose yesterday. Does not drink very much caffeine. Has been taking ibuprofen and acetaminophen postop but has not been helping. Recommendation: Advised to be seen within 24 hours, EC hours/locations provided, scheduled video visit per patient request. Routing to Dr Kincaid as FYI since patient is postop. Read care advice to patient/caregiver. Patient/caregiver verbalizes understanding and agreed to plan of care. Last visit with PCP (ADORE MORALES) was 06/28/2023 Reason for Disposition [1] MODERATE headache (e.g., interferes with normal activities) AND [2] present > 24 hours AND [3] unexplained (Exceptions: analgesics not tried, typical migraine, or headache part of viral illness) [1] Caller has NON-URGENT question AND [2] triager unable to answer question Answer Assessment - Initial Assessment Questions 1. LOCATION: Where does it hurt? Right side of head by jew 2. ONSET: When did the headache start? (Minutes, hours or days) Day of Surgery 07/10 3. PATTERN: Does the pain come and go, or has it been constant since it started? Was come/going, but has been constant x 2 days 4. SEVERITY: How bad is the pain? and What does it keep you from doing? (e.g., Scale 1-10; mild, moderate, or severe) - MILD (1-3): doesn't interfere with normal activities - MODERATE (4-7): interferes with normal activities or awakens from sleep - SEVERE (8-10): excruciating pain, unable to do any normal activities 6/10 5. RECURRENT SYMPTOM: Have you ever had headaches before? If Yes, ask: When was the last time? and What happened that time? Denies 6. CAUSE: What do you think is causing the headache? Uncertain, worse with bending over 7. MIGRAINE: Have you been diagnosed with migraine headaches? If Yes, ask: Is this headache similar? Denies 8. HEAD INJURY: Has there been any recent injury to the head? Denies 9. OTHER SYMPTOMS: Do you have any other symptoms? (fever, stiff neck, eye pain, sore throat, cold symptoms) Sore throat - states likely r/t intubation 10. : Is there any chance you are ? When was your last menstrual period? Denies Protocols used: Qwzodthp-C-PM, Post-Op Symptoms and Zhusvvcyz-X-UL documented in this encounter [facility] 07-14-2023 Telephone encounter Note I spoke to patient who reports new headache since surgery. She has no prior history of headaches. She is other asymptomatic and recovering as expected. She had tried tylenol and motrin with little relief. She we prescribed Excedrin today but has not tried it yet. I advised she try the excedrin as prescribed and if it is not effective to follow up with her PCP or in the ED if her symptoms worsen. I indicated this is likely not related to surgery. [facility] Work Phone: 07-14-2023 Instructions Kylah Alcala PA-C - 07/14/2023 12:11 PM EDT Acute nonintractable headache -Will treat with Excedrin initially. -If symptoms worsen or develops any alarming symptoms such as vision changes, stiff neck, uncontrolled vomiting, uncontrolled fever, lethargy, new neurological symptoms- call 911 or go to your nearest ER immediately. -Follow-up with PCP for re-evaluation/blood work if not recently completed. -If symptoms become chronic, follow-up with neurology for further evaluation. Acute cough -Recommend increased fluid intake. -May add humidifier in bedroom as needed. -Recommend warm salt water gargles for throat, throat lozenges, warm tea with honey as needed. -Go to ER for any persistent or worsening symptoms. documented in this encounter [facility] 07-14-2023 History of Present illness Narrative Images from the original note were not included. [facility] Virtual Provider Note Documentation: Mode: Video Consent: This visit was initiated by the patient. Audio and visual communication was utilized in real-time. I confirmed understanding of risks and benefits of telehealth visits and obtained consent to proceed with the telemedicine visit. Location of Patient: Home of patient Time-Based Billing Justifications: Charting in Epic Patient visit (including performing a medically appropriate exam) Obtaining history (or reviewing separately obtained history) Subjective History provided by: Patient Headache Associated symptoms include coughing and a sore throat. Pertinent negatives include no abdominal pain, blurred vision, dizziness, eye pain, fever, nausea, vomiting or weakness. Walter Andrade is a 23 year old year old female with a PMH of PCOS and multiple thyroid nodules s/p total thyroidectomy on 07/11/2023 who presents with an intermittent migraine headache since 07/11/2023. States headache has been persistent for the past 24 hours. Has tried Tylenol/Motrin with minimal relief. Pt also admits to an intermittent productive cough with a pinpoint amount of blood in her sputum. Admits to a sore throat and nasal congestion as well. States she was in the hospital for approximately 29 hours all together. Denies fevers/chills/chest pain/SOB/dizziness/vision changes/abdominal pain/nausea/vomiting/chest pain/SOB/recent travel/recent injury/hx of blood clotting disorders//cancer/current tobacco use. Review of Systems Constitutional: Negative for chills and fever. HENT: Positive for congestion and sore throat. Eyes: Negative for blurred vision and pain. Respiratory: Positive for cough and sputum production. Negative for shortness of breath and wheezing. Cardiovascular: Negative for chest pain. Gastrointestinal: Negative for abdominal pain, nausea and vomiting. Neurological: Positive for headaches. Negative for dizziness, sensory change, speech change, loss of consciousness and weakness. Objective EXAM PERFORMED VIA VIDEO VISIT Physical Exam Constitutional: General: She is not in acute distress. Appearance: Normal appearance. She is not toxic-appearing. HENT: Head: Normocephalic and atraumatic. Mouth/Throat: Pharynx: Oropharynx is clear. Posterior oropharyngeal erythema present. Eyes: General: Vision grossly intact. Extraocular Movements: Extraocular movements intact. Conjunctiva/sclera: Conjunctivae normal. Neck: Comments: Linear scar on anterior aspect of neck with multiple steri strips in place. Pulmonary: Effort: Pulmonary effort is normal. No respiratory distress. Neurological: Mental Status: She is alert and oriented to person, place, and time. Mental status is at baseline. Cranial Nerves: No cranial nerve deficit, dysarthria or facial asymmetry. Sensory: Sensation is intact. Psychiatric: Mood and Affect: Mood normal. Behavior: Behavior normal. Review of patient's past medical history indicates: Multiple thyroid nodules (10/10/2022) US 09/2022 Several nodules One : FNA recommended US : repeat in 1 yr Vitamin B 12 deficiency (08/06/2022) Vitamin D deficiency (08/06/2022) PCOS (polycystic ovarian syndrome) ADHD (attention deficit hyperactivity disorder) (2019) Review of patient's past surgical history indicates: THYROIDECTOMY, TOTAL (07/11/2023) Procedure: THYROIDECTOMY, TOTAL WITH RESECTION LEFT SUBSTERNAL NODULE, CERVICAL APPROACH; Surgeon: Vick Kincaid MD; Location: PERIOPERATIVE SERVICES; Service: General Current Outpatient Medications Medication Sig Dispense Refill yidmfic-llhrxcfrwiekx-vyczhjqi (Excedrin Extra Strength) 250-250-65 MG TABS tablet Take 2 Tablets by mouth every 6 hours as needed for Pain. Max dose: 8 tabs/24 hours. Do NOT exceed 1g/4h and 4g/day of acetaminophen from all sources. 14 Tablet 0 calcium, elemental, (OSCAL,) 500 MG tablet Take 1 Tablet by mouth 3 times daily. 90 Tablet 0 acetaminophen (TYLENOL) 500 MG tablet Take 2 Tablets by mouth every 8 hours as needed. 60 Tablet 0 docusate sodium (COLACE) 100 MG capsule Take 1 Capsule by mouth 2 times daily as needed. 30 Capsule 0 dyclonine (Sucrets Sore Throat) 2 MG lozenge 1 Lozenge in the mouth every 2 hours as needed. 18 Lozenge 0 ibuprofen (MOTRIN) 800 MG tablet Take 1 Tablet by mouth every 8 hours as needed. 30 Tablet 0 levothyroxine (SYNTHROID) 150 MCG tablet Take 1 Tablet by mouth daily (30 minutes before breakfast). 90 Tablet 3 Multiple Vitamins-Minerals (Multivitamin Gummies Womens) CHEW vitamin D, Cholecalciferol, 25 MCG (1000 UT) TABS tablet Take 3 Tablets by mouth daily. 270 Tablet 4 Cyanocobalamin (B-12) 2500 MCG TABS Take 1 Tablet by mouth daily. 90 Tablet 4 No current facility-administered medications for this visit. Assessment/Plan: Walter was seen today for headache. Diagnoses and all orders for this visit: Acute nonintractable headache, unspecified headache type Acute cough Other orders - vqblglu-zpnfcxwbsmnen-aazvjykr (Excedrin Extra Strength) 250-250-65 MG TABS tablet; Take 2 Tablets by mouth every 6 hours as needed for Pain. Max dose: 8 tabs/24 hours. Do NOT exceed 1g/4h and 4g/day of acetaminophen from all sources. (R51.9) Acute nonintractable headache, unspecified headache type (primary encounter diagnosis) Plan: -Will treat with Excedrin initially. -If symptoms worsen or develops any alarming symptoms such as vision changes, stiff neck, uncontrolled vomiting, uncontrolled fever, lethargy, new neurological symptoms- call 911 or go to your nearest ER immediately. -Follow-up with PCP for re-evaluation/blood work if not recently completed. -If symptoms become chronic, follow-up with neurology for further evaluation. (R05.1) Acute cough Plan: -Informed pt that small amount of blood in sputum may be due throat irritation from intubation during recent surgery. Advised that pt consult with surgeon as soon as possible. If symptoms persist/worsen, advised that pt go to ER immediately. -Advised covid-19 testing, but pt declined at this time. -Recommend increased fluid intake. -May add humidifier in bedroom as needed. -Recommend warm salt water gargles for throat, throat lozenges, warm tea with honey as needed. -Go to ER for any persistent or worsening symptoms. No follow-ups on file. This patient has been seen and evaluated today through virtual services in Urgent Care on a secure platform. Assessment, diagnosis, and treatment has been provided to the best capabilities available given the nature of the visit. Patient has been informed of possible worsening symptoms and has been advised to seek in-person medical care if symptoms worsen or do not improve with agreed-upon treatment. Patient verbalized understanding prior to end of call. Kylah Alcala PA-C documented in this encounter [facility] 07-14-2023 Telephone encounter Note Situation: Headache post thyroidectomy Background: Sx 07/10 Dr Kincaid headache started then, worse in the last 2 days Assessment: See triage below. Worse with bending over, felt clicking in nose yesterday. Does not drink very much caffeine. Has been taking ibuprofen and acetaminophen postop but has not been helping. Recommendation: Advised to be seen within 24 hours, EC hours/locations provided, scheduled video visit per patient request. Routing to Dr Kincaid as FYI since patient is postop. Read care advice to patient/caregiver. Patient/caregiver verbalizes understanding and agreed to plan of care. Last visit with PCP (ADORE MORALES) was 06/28/2023 Reason for Disposition [1] MODERATE headache (e.g., interferes with normal activities) AND [2] present > 24 hours AND [3] unexplained (Exceptions: analgesics not tried, typical migraine, or headache part of viral illness) [1] Caller has NON-URGENT question AND [2] triager unable to answer question Answer Assessment - Initial Assessment Questions 1. LOCATION: Where does it hurt? Right side of head by jew 2. ONSET: When did the headache start? (Minutes, hours or days) Day of Surgery 07/10 3. PATTERN: Does the pain come and go, or has it been constant since it started? Was come/going, but has been constant x 2 days 4. SEVERITY: How bad is the pain? and What does it keep you from doing? (e.g., Scale 1-10; mild, moderate, or severe) - MILD (1-3): doesn't interfere with normal activities - MODERATE (4-7): interferes with normal activities or awakens from sleep - SEVERE (8-10): excruciating pain, unable to do any normal activities /10 5. RECURRENT SYMPTOM: Have you ever had headaches before? If Yes, ask: When was the last time? and What happened that time? Denies 6. CAUSE: What do you think is causing the headache? Uncertain, worse with bending over 7. MIGRAINE: Have you been diagnosed with migraine headaches? If Yes, ask: Is this headache similar? Denies 8. HEAD INJURY: Has there been any recent injury to the head? Denies 9. OTHER SYMPTOMS: Do you have any other symptoms? (fever, stiff neck, eye pain, sore throat, cold symptoms) Sore throat - states likely r/t intubation 10. : Is there any chance you are ? When was your last menstrual period? Denies Protocols used: Cbnlllxg-H-ME, Post-Op Symptoms and Dikvjjkzr-P-GT [facility] 07-13-2023 Note Transitions of Care Follow Up Call Initial communication post- discharge: 1st attempt: 07/13/23 [x] Text sent Yes Sources of Information: [x]Patient, family member or health care consultant: Name and Relationship to patient: [x] Hospital Discharge/CDU Summary reviewed: [] Hospital fax received from: [x] List of recent hospitalizations or ED visits reviewed : [] Patient/Caregiver decline Follow Up Call [] CarePort: []Other: Date of Admission: 07/11/2023 Date of Discharge: 07/12/2023 Hospital Discharge diagnosis: Multiple thyroid nodules 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 Kincaid on 07/11/2023 Current symptoms/Patient concerns: Pain using the Pain meds. She is swollen at the neck will use ice pack to help Aware of her FU care Medication changes: Yes If yes, what are they and does patient understand how and when to take? yes Medication list reviewed with patient: Yes Medication-related problems: MTP: Problem identified - No medication-related issues identified - Patient able to obtain prescribed medications per discharge list: Yes Pharmacy needs: None at this time Patient provided pharmacy number [phone] for medication related concerns/follow up. Needs follow up appointment or procedure: yes Future Appointments (next 10) Provider Department Center 07/22/2023 9:00 AM Vick Kincaid MD [facility] Surgery [facility] Review need for or follow up on pending diagnostic test, referrals to specialist and treatment plans with patient/caregiver: No Community resources identified for patient/family: No i.e. [employer] Durable medical equipment ordered:No Education provided to patient/caregiver to support self management, ADL's, etc: KAE offered Ice to help with swelling and use the Pain Meds as needed. Make sure taking Thyroid medication Mode of Transportation: self Interact with other health cardiac care nurse involved in patient care:No Referral to Primary Care Coordination :No Referral to [facility] :No Additional information needed and requested:No Reminded to bring in all medications. (Old AND New) to future appointment. Kajal Khan, MSN,RN Care Coordination [facility] O [phone] [facility] 07-13-2023 Telephone encounter Note Images from the original note were not included. 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 Kincaid on 07/11/2023 Current symptoms/Patient concerns: Pain using the Pain meds. She is swollen at the neck will use ice pack to help Aware of her FU care Medication changes: Yes If yes, what are they and does patient understand how and when to take? yes Medication list reviewed with patient: Yes Medication-related problems: MTP: Problem identified - No medication-related issues identified - Patient able to obtain prescribed medications per discharge list: Yes Pharmacy needs: None at this time Patient provided pharmacy number [phone] for medication related concerns/follow up. Needs follow up appointment or procedure: yes Future Appointments (next 10) Provider Department Center 07/22/2023 9:00 AM Vick Kincaid MD [facility] Surgery [facility] Review need for or follow up on pending diagnostic test, referrals to specialist and treatment plans with patient/caregiver: No Community resources identified for patient/family: No i.e. [employer] Durable medical equipment ordered:No Education provided to patient/caregiver to support self management, ADL's, etc: KAE offered Ice to help with swelling and use the Pain Meds as needed. Make sure taking Thyroid medication Mode of Transportation: self Interact with other health cardiac care nurse involved in patient care:No Referral to Primary Care Coordination :No Referral to [facility] :No Additional information needed and requested:No Reminded to bring in all medications. (Old & New) to future appointment. Kajal Khan, MSN,RN Care Coordination [facility] O [phone] [facility] 07-13-2023 Miscellaneous Notes Images from the original note were not included. 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 Kincaid on 07/11/2023 Current symptoms/Patient concerns: Pain using the Pain meds. She is swollen at the neck will use ice pack to help Aware of her FU care Medication changes: Yes If yes, what are they and does patient understand how and when to take? yes Medication list reviewed with patient: Yes Medication-related problems: MTP: Problem identified - No medication-related issues identified - Patient able to obtain prescribed medications per discharge list: Yes Pharmacy needs: None at this time Patient provided pharmacy number [phone] for medication related concerns/follow up. Needs follow up appointment or procedure: yes Future Appointments (next 10) Provider Department Center 07/22/2023 9:00 AM Vick Kincaid MD [facility] Surgery [facility] Review need for or follow up on pending diagnostic test, referrals to specialist and treatment plans with patient/caregiver: No Community resources identified for patient/family: No i.e. [employer] Durable medical equipment ordered:No Education provided to patient/caregiver to support self management, ADL's, etc: KAE offered Ice to help with swelling and use the Pain Meds as needed. Make sure taking Thyroid medication Mode of Transportation: self Interact with other health cardiac care nurse involved in patient care:No Referral to Primary Care Coordination :No Referral to [facility] :No Additional information needed and requested:No Reminded to bring in all medications. (Old & New) to future appointment. Kajal Khan, MSN,RN Care Coordination [facility] O [phone] [facility] this [facility] 07-12-2023 Plan of care note Problem: Routine Care: Goal: Patient care will be managed and maintained throughout hospital stay per unit specific routine care procedure Outcome: Progressing Problem: Impaired Skin Integrity: Goal: Acheive wound healing without signs and symptoms of infection Outcome: Progressing Goal: Skin integrity will improve and/or be maintained Outcome: Progressing Problem: Risk for Infection: Goal: Risk for infection will be reduced Outcome: Progressing Problem: Alteration in Respiratory Status: Goal: Achieve Optimal Respiratory Status with Minimal Ventilatory/Oxygen Support Outcome: Progressing Goal: Ability to maintain a clear airway will improve Outcome: Progressing Problem: Fluid and Electrolyte Imbalance: Goal: Adequate fluid and electrolyte balance will be achieved and maintained Outcome: Progressing Goal: Will show no signs and symptoms of excessive bleeding Outcome: Progressing Goal: Will remain free of signs and symptoms of fluid loss/inadequate intake Outcome: Progressing Goal: Control of fluid volume excess will improve Outcome: Progressing Problem: Activity Intolerance: Goal: Will be free of DVT Outcome: Progressing Problem: VTE Prophylaxis: Goal: Will be free of DVT Outcome: Progressing Problem: Acute Pain: Goal: Ability to identify pain intensity on a pain scale and rate it consistently will be achieved and maintained Outcome: Progressing Goal: Understanding of proper administration and use of medicines will be achieved Outcome: Progressing Goal: Ability to identify factors that manage or decrease pain will be achieved Outcome: Progressing Problem: Safety: Goal: Patient will remain free of falls during hospital stay Outcome: Progressing Goal: Free from injury during hospitalization Outcome: Progressing Problem: Discharge Planning: Goal: Discharge needs of the adult patient will be met Outcome: Progressing [facility] 07-12-2023 Miscellaneous Notes Problem: Routine Care: Goal: Patient care will be managed and maintained throughout hospital stay per unit specific routine care procedure Outcome: Progressing Problem: Impaired Skin Integrity: Goal: Acheive wound healing without signs and symptoms of infection Outcome: Progressing Goal: Skin integrity will improve and/or be maintained Outcome: Progressing Problem: Risk for Infection: Goal: Risk for infection will be reduced Outcome: Progressing Problem: Alteration in Respiratory Status: Goal: Achieve Optimal Respiratory Status with Minimal Ventilatory/Oxygen Support Outcome: Progressing Goal: Ability to maintain a clear airway will improve Outcome: Progressing Problem: Fluid and Electrolyte Imbalance: Goal: Adequate fluid and electrolyte balance will be achieved and maintained Outcome: Progressing Goal: Will show no signs and symptoms of excessive bleeding Outcome: Progressing Goal: Will remain free of signs and symptoms of fluid loss/inadequate intake Outcome: Progressing Goal: Control of fluid volume excess will improve Outcome: Progressing Problem: Activity Intolerance: Goal: Will be free of DVT Outcome: Progressing Problem: VTE Prophylaxis: Goal: Will be free of DVT Outcome: Progressing Problem: Acute Pain: Goal: Ability to identify pain intensity on a pain scale and rate it consistently will be achieved and maintained Outcome: Progressing Goal: Understanding of proper administration and use of medicines will be achieved Outcome: Progressing Goal: Ability to identify factors that manage or decrease pain will be achieved Outcome: Progressing Problem: Safety: Goal: Patient will remain free of falls during hospital stay Outcome: Progressing Goal: Free from injury during hospitalization Outcome: Progressing Problem: Discharge Planning: Goal: Discharge needs of the adult patient will be met Outcome: Progressing Problem: Routine Care: Goal: Patient care will be managed and maintained throughout hospital stay per unit specific routine care procedure Outcome: Progressing Problem: Impaired Skin Integrity: Goal: Acheive wound healing without signs and symptoms of infection Outcome: Progressing Goal: Skin integrity will improve and/or be maintained Outcome: Progressing Problem: Risk for Infection: Goal: Risk for infection will be reduced Outcome: Progressing Problem: Alteration in Respiratory Status: Goal: Achieve Optimal Respiratory Status with Minimal Ventilatory/Oxygen Support Outcome: Progressing Goal: Ability to maintain a clear airway will improve Outcome: Progressing Problem: Fluid and Electrolyte Imbalance: Goal: Adequate fluid and electrolyte balance will be achieved and maintained Outcome: Progressing Goal: Will show no signs and symptoms of excessive bleeding Outcome: Progressing Goal: Will remain free of signs and symptoms of fluid loss/inadequate intake Outcome: Progressing Goal: Control of fluid volume excess will improve Outcome: Progressing Problem: Activity Intolerance: Goal: Will be free of DVT Outcome: Progressing Problem: VTE Prophylaxis: Goal: Will be free of DVT Outcome: Progressing Problem: Acute Pain: Goal: Ability to identify pain intensity on a pain scale and rate it consistently will be achieved and maintained Outcome: Progressing Goal: Understanding of proper administration and use of medicines will be achieved Outcome: Progressing Goal: Ability to identify factors that manage or decrease pain will be achieved Outcome: Progressing Problem: Safety: Goal: Patient will remain free of falls during hospital stay Outcome: Progressing Goal: Free from injury during hospitalization Outcome: Progressing Problem: Discharge Planning: Goal: Discharge needs of the adult patient will be met Outcome: Progressing Problem: Routine Care: Goal: Patient care will be managed and maintained throughout hospital stay per unit specific routine care procedure Outcome: Progressing Problem: Impaired Skin Integrity: Goal: Acheive wound healing without signs and symptoms of infection Outcome: Progressing Goal: Skin integrity will improve and/or be maintained Outcome: Progressing Problem: Risk for Infection: Goal: Risk for infection will be reduced Outcome: Progressing Problem: Alteration in Respiratory Status: Goal: Achieve Optimal Respiratory Status with Minimal Ventilatory/Oxygen Support Outcome: Progressing Goal: Ability to maintain a clear airway will improve Outcome: Progressing Problem: Fluid and Electrolyte Imbalance: Goal: Adequate fluid and electrolyte balance will be achieved and maintained Outcome: Progressing Goal: Will show no signs and symptoms of excessive bleeding Outcome: Progressing Goal: Will remain free of signs and symptoms of fluid loss/inadequate intake Outcome: Progressing Goal: Control of fluid volume excess will improve Outcome: Progressing Problem: Activity Intolerance: Goal: Will be free of DVT Outcome: Progressing Problem: VTE Prophylaxis: Goal: Will be free of DVT Outcome: Progressing Problem: Acute Pain: Goal: Ability to identify pain intensity on a pain scale and rate it consistently will be achieved and maintained Outcome: Progressing Goal: Understanding of proper administration and use of medicines will be achieved Outcome: Progressing Goal: Ability to identify factors that manage or decrease pain will be achieved Outcome: Progressing Problem: Safety: Goal: Patient will remain free of falls during hospital stay Outcome: Progressing Goal: Free from injury during hospitalization Outcome: Progressing Problem: Discharge Planning: Goal: Discharge needs of the adult patient will be met Outcome: Progressing Brief Operative Note MAIN OR 12 Walter [place]et 23 year old female Surgical Contact Serial Number: [id number] Preoperative Diagnosis: Pre-op Diagnosis * Multiple thyroid nodules [E04.2] Postoperative Diagnosis: * Multiple thyroid nodules [E04.2] Procedures: 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, cervical approach Surgeon(s): Surgeon(s): Vick Kincaid MD Staff: Scrub: Magaly Pollack, CHURCH SUPERVISOR; Genaro Rodriguez, [employer] Assistant Nurse: Chris Doran Physician Global Upstream Marketing Manager: Ninfa Prescott PA-C Ems Director: Devin Ortega MD Anesthesia: General Anesthesiologist: Annia Zhao MD CAA: Soila Dunn CAA Anesthesia Student: Dory Trinidad Specimen(s): ID Type Source Tests Collected by Time Destination 1 : lymph nodes central compartment neck Tissue Lymph node SPECIMEN FOR SURGICAL PATH Vick Kincaid MD 07/11/2023 0932 2 : entire thyroid gland Tissue Thyroid SPECIMEN FOR SURGICAL PATH Vick Kincaid MD 07/11/2023 0948 Estimated Blood Loss: 25cc Lines/Drains: Peripheral IV Access: 07/11/23 0720 20 gauge Right Forearm (Active) Site Assessment WN 07/11/23 0736 Infusion Status Port #1 Infusing;Patent 07/11/23 0736 Peripheral IV Access: 07/11/23 0753 20 gauge Left Forearm (Active) Site Assessment WN 07/11/23 0753 Infusion Status Port #1 Patent;Infusing 07/11/23 0753 Temporarily Retained Foreign Object: No Findings: Left sided nodule measuring 3.5cm x 2cm x 2.3cm. Weight of total thyroid 22g. 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 Left RLN functioning. Complications: None Status at end of surgery: Stable Activity: No heavy lifting or strenuous activity for 4-6 weeks. Surgical wound class: Yes, wound was clean. Patient Class: Planned Extended Recovery. Is this a patient scheduled as an outpatient that needs to be admitted as an inpatient? No Dr. Kincaid was present in the OR for the critical portion of the procedure and procedure sign-out. Signed by Ninfa Prescott PA-C 07/11/2023 10:35 AM Blood Attestation: ATTESTATION OF INFORMED CONSENT FOR BLOOD: The transfusion of blood and/or blood components were discussed with the patient and/or legal parts representative. The risks, benefits and alternatives were reviewed. Questions regarding blood transfusions were answered. The patient /or the patient s legal parts representative agree with the plan for transfusion of blood and/or blood components. Name: WALTER ANDRADE MR#: [id number] [facility]#: [id number] Date of Procedure: 07/11/2023 ATTENDING SURGEON: Vick Kincaid MD A&P TECHNICIAN: Ninfa Prescott PA-C PREOPERATIVE DIAGNOSIS: Bilateral nodular thyroid disease with nodule, left lobe of the thyroid gland, extending retrosternally, persistent atypia of undetermined significance and Afirma testing suspicious for cancer. POSTOPERATIVE DIAGNOSIS: Bilateral nodular thyroid disease with nodule, left lobe of the thyroid gland, extending retrosternally, persistent atypia of undetermined significance and Afirma testing suspicious for cancer. PROCEDURE: Total thyroidectomy with resection of left substernal nodule, cervical approach. RESIDENT SURGEON: Devin Ortega MD. ANESTHESIA: General endotracheal. ESTIMATED BLOOD LOSS: 25 cc. SPECIMEN: The entire thyroid gland weighing 22 g. and lymph nodes central compartment of neck INTRAOPERATIVE FINDINGS: The patient was noted to have bilateral nodular thyroid disease. The largest nodule was arising from the inferior pole of the left lobe of the thyroid gland and was extending retrosternally. The weight of the excised thyroid gland was 22 g. The nodule in the left lobe of the thyroid gland measured 3.5 x 2 x 2.3 cm in dimensions. DESCRIPTION OF PROCEDURE: The patient was placed in a supine position, was sterilely prepped and draped in usual fashion. After a surgical time-out was completed, 0.5% Marcaine was used to anesthetize the site of the skin incision prior to making the incision to establish preemptive analgesia. A transverse collar incision was made approximately 2 fingerbreadths above the sternal notch with a 15-blade scalpel. The electrocautery was used to incise the subcutaneous tissue and the platysmal muscle. Superior and inferior skin flaps were raised in a subplatysmal plane. The strap muscles were in the midline along the median raphe with the electrocautery. The right lobe of the thyroid gland was mobilized anteromedially. The right middle thyroid vein was delineated, was ligated with 3-0 silk suture and was divided with the Harmonic scalpel. The left superior pole vessels were delineated, were individually ligated with 2-0 and 3-0 silk sutures and were divided with the Harmonic scalpel. The right recurrent laryngeal nerve was identified, was traced through its entire course and was preserved. Throughout the dissection of the right recurrent laryngeal nerve, the intraoperative nerve monitor was used to confirm the functional integrity of the nerve. The right inferior pole vessels were delineated, were individually ligated with 2-0 and 3-0 silk sutures and were divided with the Harmonic scalpel. What was felt to represent the right superior and right inferior parathyroid glands were preserved in situ. The branches of the right inferior thyroid artery were delineated close to the thyroid gland so as to preserve the blood supply to the parathyroid glands. The branches of the right inferior thyroid artery were ligated with 3-0 silk suture and were divided with a 15-blade scalpel. During the most proximal dissection of the right recurrent laryngeal nerve, the auditory signal was lost using the intraoperative nerve monitor. The nerve was visibly intact. This suggested a possible paresis of the nerve secondary to traction. The right lobe of the thyroid gland was mobilized to the left side of the trachea. This was accomplished by sharply dividing the ligament of Woody with the Metzenbaum scissors. There was noted to be some fibrofatty tissue in the prelaryngeal and pretracheal areas. This was excised and was submitted in a separate specimen cup labeled lymph nodes from the central compartment of the neck. These were submitted to Pathology for paraffin evaluation. The left lobe of the thyroid gland was mobilized anteromedially. The left middle thyroid vein was delineated, was ligated with 3-0 silk suture and was divided with the Harmonic scalpel. The left superior pole vessels were delineated, were individually ligated with 2-0 and 3-0 silk sutures and were divided with the Harmonic scalpel. The patient was noted to have a large nodule arising from the inferior pole of the left lobe of the thyroid gland that was principally retrosternal. The retrosternal component of the nodule was progressively elevated into the operative field using traction on the cervical component of the thyroid gland and digital mobilization. Once the retrosternal component of the left-sided thyroid nodule was delivered into the operative field, the left recurrent laryngeal nerve was identified was traced through its entire course and was preserved. The left inferior pole vessels were delineated, were individually ligated with 2-0 and 3-0 silk sutures and were divided with the Harmonic scalpel. What was felt to represent the left superior and left inferior parathyroid glands were preserved in situ. The branches of the left inferior thyroid artery were delineated close to the thyroid gland so as to preserve the blood supply to the parathyroid glands. The branches of the left inferior thyroid artery were ligated with 3-0 silk suture and were divided with a 15-blade scalpel. The left lobe of the thyroid gland was then removed. This was accomplished by sharply dividing the remainder of the ligament of Woody with the Metzenbaum scissors. The entire thyroid gland, weighing 22 g was submitted to Pathology for paraffin evaluation. Hemostasis was obtained with the electrocautery. A small square of thrombin-soaked Gelfoam was left adjacent to either side of the trachea. The strap muscles were reapproximated in the midline with a running 2-0 Vicryl suture. The subcutaneous tissue and platysma muscle were reapproximated with interrupted 3-0 Vicryl suture. The skin was closed with a 4-0 Monocryl placed in a subcuticular fashion. Mastisol, Steri-Strips, and a dressing were applied. The patient tolerated the procedure well. I was present for the entire case. MD GLADYS Earl/MedQ/Dict: 07/11/2023 21:38:52 TRANS: 07/12/2023 01:07:51 JOB: [id number] DictJob#: [id number] documented in this encounter [facility] 07-12-2023 History of Present illness Narrative SW/CM has reviewed patient's chart and assessed that there are no discharge planning needs at this time. The following was reviewed to determine no SW/CM needs warranted. 1). PT/OT evaluations indicate pt can DC home with no needs or PT/OT evaluations are not warranted. 2). No wound care or IV Antibiotics indicated at this time. 3). No SW/CM consults placed through nursing admission screen 4). Pt does not meet the criteria of being a Medicare recipient that has a high or rising readmission rate. Patient will continue to be discussed in multi-disciplinary rounds and monitored daily. If any of the the above changes, SW/CM will complete appropriate assessments and interventions. Razia Alvarado RN BSN Inpatient Business Development Representative Tuesday/Tuesday 8:00/ 4:30 Post-op check note S: No acute events since surgery. Pt has tolerated clears without nausea and vomiting. Pain is adequately controlled, complains mostly of pain with swallowing . Denies CP and SOB. O: Vitals Recorded in This Encounter 07/11/2023 1115 07/11/2023 1130 07/11/2023 1145 07/11/2023 1150 07/11/2023 1435 BP: 132/74 125/92 -- 146/86 127/75 Pulse: 66 93 -- 105 102 Resp: 18 20 -- 20 20 Temp: -- 98.3 F (36.8 C) -- 98.5 F (36.9 C) 97.8 F (36.6 C) Temp src: -- Temporal -- Oral Oral SpO2: 93 % 92 % -- 92 % 93 % Pain Score: 7 3 5 -- -- Intake/Output Summary (Last 24 hours) at 07/11/2023 1631 Last data filed at 07/11/2023 1435 Gross per 24 hour Intake 1850 ml Output 25 ml Net 1825 ml Gen: NAD, resting comfortably in bed Neuro: Alert and oriented Chest: breathing comfortably ORA Neck: Island dressing place, no strikethrough present. Neck is soft, appropriately tender to palpation. No swelling or fullness of incision appreciated. Extremities: moving all extremities equally A/P Pt is POD#0 s/p total thyroidectomy. Pt tolerated procedure well. - Cont to optimize pain control - Cont diet as ordered - Check calcium/magnesium in am - Synthroid 150mcg ordered to start tomorrow morning Ninfa Prescott PA-C 07/11/23 [facility] Pager# [phone] documented in this encounter [facility] 07-12-2023 Note DISCHARGE SUMMARY [place] [id number] Walter Andrade Date of : 2000 23 year old female Attending Vick Kincaid,* Date of Admission 07/11/2023 Date of Discharge 07/12/2023 Final Diagnosis: Multiple thyroid nodules Hospital Problems as of 07/12/2023 * (Principal) Multiple thyroid nodules Discharge Procedure Orders THYROIDECTOMY, W/SUBSTERNAL THYROID; CERVICAL APPROACH Future Appointments Date Time Provider Department Center 07/22/2023 9:00 AM Vick Kincaid MD [facility] Condition at Discharge improved Activity no heavy lifting and no strenuous activity Diet no restrictions Disposition home Functional Status ambulatory Reason for Hospitalization Multiple thyroid nodules [E04.2] Significant Findings Left sided nodule measuring 3.5cm x 2cm x 2.3cm. Weight of total thyroid 22g. There was a loss of the auditory signal in the right sided recurrent laryngeal nerve at completion of case,. The nervewas visually intact. The left RLN was functioning. 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 Kincaid on 07/11/2023. Tolerated procedure well w/ no complications; please see separately dictated operative note for details. Extubated in the OR without incident and recovered briefly in the PACU before being transferred to a RNF Diet was slowly advanced as tolerated and pain control was transitioned to PO. Her magnesium was 2.0 and calcium was 9.3 on POD#1. She was started on 500mg Oscal TID. She was started on 150mcg Synthroid daily. Her voice was mildly hoarse post operatively, but she felt it had improved by POD#1. Pt was discharged home in stable condition on 07/12/23 with instructions to follow-up as an outpatient. At time of discharge, pt was afebrile, AVSS, and pain was well-controlled. She was tolerating a diet, voiding without issue, and ambulating independently. All incisions were clean, dry and intact. Physical Exam Day of Discharge Gen: NAD, resting comfortably in bed. Voice mildly hoarse, but strong. Neuro: Alert and oriented Chest: breathing comfortably ORA Neck: Island dressing place, no strikethrough present. Neck is soft, appropriately tender to palpation. No swelling or fullness of incision appreciated. Extremities: moving all extremities equally The green surgery team provided the patient and/or family/surrogate with the following information: Explanation of the primary diagnosis, and secondary diagnoses where applicable, including test results, Discussion of any new medications and treatments, including expected benefits and potential major side effects, Explanation of previous treatments or medications that are discontinued, Discussion of post-hospital day-to-day care needs, and Follow-up plans, and warning signs that should prompt more urgent follow-up Ninfa Prescott PA-C 07/12/23 [facility] Pager# [phone] [facility] [employer] [facility] 07-12-2023 Hospital Discharge instructions Ninfa Prescott PA-C - 07/12/2023 7:21 AM EDT Home Going Instructions After Thyroid Surgery 1. Diet: You may resume your normal diet as tolerated. 2. Alcohol: Alcoholic beverages, in moderation, are acceptable, but should be avoided while using prescription pain medication. 3. Activity: Walking is encouraged, and climbing stairs is acceptable, but strenuous activity (e.g., lifting objects weighing over 20 lbs, sit-ups, pull-ups) should be avoided for 4 weeks 4. Driving: Do not drive a vehicle for one week after surgery or while taking prescription pain medications. When you return to driving, do not go alone the first time. Do not drive if you are having pain. 5. Wound care: You may remove the outer bandage and shower 48 hours after surgery. Don't let water run directly on your incision. Afterwards gently dry the wound. The white strips will fall off on their own. Do not get in a tub of water for 2 weeks. 6. Medications: Take Tylenol Extra Strength 1000mg every 8 hours and Ibuprofen 800mg every 8 hours for pain control. Also can you ice packs at surgical wound site, 15 minutes on 15 minutes off as needed for the first 2 days These should be taken as instructed by your surgeon. Resume taking your prior medication unless otherwise instructed. You have been prescribed a thyroid replacement medication (levothyroxine) you must take this every day in the morning on an empty stomach. You will have your thyroid levels rechecked in 6 weeks. You have been prescribed calcium, please take three times daily as instructed. You have also been provided with a prescription for Sucrets. These are throat lozenges that can help with pain control by numbing your throat. You may take these as needed. Potential problems: Surgical infection: Fever higher than 100.4, especially if associated with an ill feeling, abdominal pain, chills, or nausea should be reported to your surgeon. Excessive swelling, redness, drainage, or severe pain around the incision should be reported to your surgeon. 10. Office visits: -Please follow with Dr. Kincaid as scheduled. Your appointment was changed to be on July 21 at 9:00am. Please call the office at [phone] to make an appointment if one has not been made for you. -Follow up with your primary care provider in 1-2 weeks. If you do not have a primary care provider, call [phone] to schedule with a [facility] provider. Future Appointments (next 10) Provider Department Center 07/22/2023 9:00 AM Vick Kincaid MD [facility] Surgery [facility] If you have questions or concerns, if your condition worsens or you develop new symptoms such as weakness, numbness or tingling please call the [facility] Line at [phone]. After hours and on weekends, please call the surgery resident on-call at . Ask the jig bore operator for the general surgery resident converting operator. documented in this encounter [facility] 07-11-2023 Plan of care note Problem: Routine Care: Goal: Patient care will be managed and maintained throughout hospital stay per unit specific routine care procedure Outcome: Progressing Problem: Impaired Skin Integrity: Goal: Acheive wound healing without signs and symptoms of infection Outcome: Progressing Goal: Skin integrity will improve and/or be maintained Outcome: Progressing Problem: Risk for Infection: Goal: Risk for infection will be reduced Outcome: Progressing Problem: Alteration in Respiratory Status: Goal: Achieve Optimal Respiratory Status with Minimal Ventilatory/Oxygen Support Outcome: Progressing Goal: Ability to maintain a clear airway will improve Outcome: Progressing Problem: Fluid and Electrolyte Imbalance: Goal: Adequate fluid and electrolyte balance will be achieved and maintained Outcome: Progressing Goal: Will show no signs and symptoms of excessive bleeding Outcome: Progressing Goal: Will remain free of signs and symptoms of fluid loss/inadequate intake Outcome: Progressing Goal: Control of fluid volume excess will improve Outcome: Progressing Problem: Activity Intolerance: Goal: Will be free of DVT Outcome: Progressing Problem: VTE Prophylaxis: Goal: Will be free of DVT Outcome: Progressing Problem: Acute Pain: Goal: Ability to identify pain intensity on a pain scale and rate it consistently will be achieved and maintained Outcome: Progressing Goal: Understanding of proper administration and use of medicines will be achieved Outcome: Progressing Goal: Ability to identify factors that manage or decrease pain will be achieved Outcome: Progressing Problem: Safety: Goal: Patient will remain free of falls during hospital stay Outcome: Progressing Goal: Free from injury during hospitalization Outcome: Progressing Problem: Discharge Planning: Goal: Discharge needs of the adult patient will be met Outcome: Progressing [facility] 07-11-2023 Plan of care note Problem: Routine Care: Goal: Patient care will be managed and maintained throughout hospital stay per unit specific routine care procedure Outcome: Progressing Problem: Impaired Skin Integrity: Goal: Acheive wound healing without signs and symptoms of infection Outcome: Progressing Goal: Skin integrity will improve and/or be maintained Outcome: Progressing Problem: Risk for Infection: Goal: Risk for infection will be reduced Outcome: Progressing Problem: Alteration in Respiratory Status: Goal: Achieve Optimal Respiratory Status with Minimal Ventilatory/Oxygen Support Outcome: Progressing Goal: Ability to maintain a clear airway will improve Outcome: Progressing Problem: Fluid and Electrolyte Imbalance: Goal: Adequate fluid and electrolyte balance will be achieved and maintained Outcome: Progressing Goal: Will show no signs and symptoms of excessive bleeding Outcome: Progressing Goal: Will remain free of signs and symptoms of fluid loss/inadequate intake Outcome: Progressing Goal: Control of fluid volume excess will improve Outcome: Progressing Problem: Activity Intolerance: Goal: Will be free of DVT Outcome: Progressing Problem: VTE Prophylaxis: Goal: Will be free of DVT Outcome: Progressing Problem: Acute Pain: Goal: Ability to identify pain intensity on a pain scale and rate it consistently will be achieved and maintained Outcome: Progressing Goal: Understanding of proper administration and use of medicines will be achieved Outcome: Progressing Goal: Ability to identify factors that manage or decrease pain will be achieved Outcome: Progressing Problem: Safety: Goal: Patient will remain free of falls during hospital stay Outcome: Progressing Goal: Free from injury during hospitalization Outcome: Progressing Problem: Discharge Planning: Goal: Discharge needs of the adult patient will be met Outcome: Progressing [facility] 07-11-2023 Surgery Postoperative evaluation and management note Brief Operative Note MAIN OR 12 [facility] [place] 23 year old female Surgical Contact Serial Number: [id number] Preoperative Diagnosis: Pre-op Diagnosis * Multiple thyroid nodules [E04.2] Postoperative Diagnosis: * Multiple thyroid nodules [E04.2] Procedures: 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, cervical approach Surgeon(s): Surgeon(s): Vick Kincaid MD Staff: Scrub: Magaly Pollack, CHURCH SUPERVISOR; Genaro Rodriguez CST Print Shop Assistant Nurse: Chris Doran Physician Global Upstream Marketing Manager: Ninfa Prescott PA-C Ems Director: Devin Ortega MD Anesthesia: General Anesthesiologist: Annia Zhao MD CAA: Soila Dunn CAA Anesthesia Student: Dory Trinidad Specimen(s): ID Type Source Tests Collected by Time Destination 1 : lymph nodes central compartment neck Tissue Lymph node SPECIMEN FOR SURGICAL PATH Vick Kincaid MD 07/11/2023 0932 2 : entire thyroid gland Tissue Thyroid SPECIMEN FOR SURGICAL PATH Vick Kincaid MD 07/11/2023 0948 Estimated Blood Loss: 25cc Lines/Drains: Peripheral IV Access: 07/11/23 0720 20 gauge Right Forearm (Active) Site Assessment WNL 07/11/23 0736 Infusion Status Port #1 Infusing;Patent 07/11/23 0736 Peripheral IV Access: 07/11/23 0753 20 gauge Left Forearm (Active) Site Assessment WNL 07/11/23 0753 Infusion Status Port #1 Patent;Infusing 07/11/23 0753 Temporarily Retained Foreign Object: No Findings: Left sided nodule measuring 3.5cm x 2cm x 2.3cm. Weight of total thyroid 22g. 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 Left RLN functioning. Complications: None Status at end of surgery: Stable Activity: No heavy lifting or strenuous activity for 4-6 weeks. Surgical wound class: Yes, wound was clean. Patient Class: Planned Extended Recovery. Is this a patient scheduled as an outpatient that needs to be admitted as an inpatient? No Dr. Kincaid was present in the OR for the critical portion of the procedure and procedure sign-out. Signed by Ninfa Prescott PA-C 07/11/2023 10:35 AM [facility] 07-11-2023 History and physical note Surgical Attestation: I have reviewed the patient's History and Physical Examination. I have personally seen and evaluated the patient, repeating zaragoza portions. There is no significant interval change. Surgery is still indicated. Yes Consent reviewed and signed by patient/family: Yes Operative site verified and marked: site verified but not marked as bilateral (not side specific) Ninfa Prescott PA-C 07/11/2023 7:12 AM [facility] 07-11-2023 Note Surgical Attestation : I have reviewed the patient's History and Physical Examination. I have personally seen and evaluated the patient, repeating zaragoza portions. There is no significant interval change. Surgery is still indicated. Yes Consent reviewed and signed by patient/family: Yes Operative site verified and marked: site verified but not marked as bilateral (not side specific) Ninfa Prescott PA-C 07/11/2023 7:12 AM [facility] [employer] [facility] 07-11-2023 History and physical note Surgical Attestation: I have reviewed the patient's History and Physical Examination. I have personally seen and evaluated the patient, repeating zaragoza portions. There is no significant interval change. Surgery is still indicated. Yes Consent reviewed and signed by patient/family: Yes Operative site verified and marked: site verified but not marked as bilateral (not side specific) Ninfa Prescott PA-C 07/11/2023 7:12 AM [facility] Progress note Formatting of t his note is different from the original. Blood Attestation: ATTESTATION OF INFORMED CONSENT FOR BLOOD: The transfusion of blood and/or blood components were discussed with the patient and/or legal parts representative. The risks, benefits and alternatives were reviewed. Questions regarding blood transfusions were answered. The patient /or the patient s legal parts representative agree with the plan for transfusion of blood and/or blood components. [employer] [facility] Work Phone: 07-11-2023 Surgery Surgical operation note Name: WALTER ANDRADE MR#: [id number] [facility]#: [id number] Date of Procedure: 07/11/2023 ATTENDING SURGEON: Vick Kincaid MD A&P TECHNICIAN: Ninfa Prescott PA-C PREOPERATIVE DIAGNOSIS: Bilateral nodular thyroid disease with nodule, left lobe of the thyroid gland, extending retrosternally, persistent atypia of undetermined significance and Afirma testing suspicious for cancer. POSTOPERATIVE DIAGNOSIS: Bilateral nodular thyroid disease with nodule, left lobe of the thyroid gland, extending retrosternally, persistent atypia of undetermined significance and Afirma testing suspicious for cancer. PROCEDURE: Total thyroidectomy with resection of left substernal nodule, cervical approach. RESIDENT SURGEON: Devin Ortega MD. ANESTHESIA: General endotracheal. ESTIMATED BLOOD LOSS: 25 cc. SPECIMEN: The entire thyroid gland weighing 22 g. and lymph nodes central compartment of neck INTRAOPERATIVE FINDINGS: The patient was noted to have bilateral nodular thyroid disease. The largest nodule was arising from the inferior pole of the left lobe of the thyroid gland and was extending retrosternally. The weight of the excised thyroid gland was 22 g. The nodule in the left lobe of the thyroid gland measured 3.5 x 2 x 2.3 cm in dimensions. DESCRIPTION OF PROCEDURE: The patient was placed in a supine position, was sterilely prepped and draped in usual fashion. After a surgical time-out was completed, 0.5% Marcaine was used to anesthetize the site of the skin incision prior to making the incision to establish preemptive analgesia. A transverse collar incision was made approximately 2 fingerbreadths above the sternal notch with a 15-blade scalpel. The electrocautery was used to incise the subcutaneous tissue and the platysmal muscle. Superior and inferior skin flaps were raised in a subplatysmal plane. The strap muscles were in the midline along the median raphe with the electrocautery. The right lobe of the thyroid gland was mobilized anteromedially. The right middle thyroid vein was delineated, was ligated with 3-0 silk suture and was divided with the Harmonic scalpel. The left superior pole vessels were delineated, were individually ligated with 2-0 and 3-0 silk sutures and were divided with the Harmonic scalpel. The right recurrent laryngeal nerve was identified, was traced through its entire course and was preserved. Throughout the dissection of the right recurrent laryngeal nerve, the intraoperative nerve monitor was used to confirm the functional integrity of the nerve. The right inferior pole vessels were delineated, were individually ligated with 2-0 and 3-0 silk sutures and were divided with the Harmonic scalpel. What was felt to represent the right superior and right inferior parathyroid glands were preserved in situ. The branches of the right inferior thyroid artery were delineated close to the thyroid gland so as to preserve the blood supply to the parathyroid glands. The branches of the right inferior thyroid artery were ligated with 3-0 silk suture and were divided with a 15-blade scalpel. During the most proximal dissection of the right recurrent laryngeal nerve, the auditory signal was lost using the intraoperative nerve monitor. The nerve was visibly intact. This suggested a possible paresis of the nerve secondary to traction. The right lobe of the thyroid gland was mobilized to the left side of the trachea. This was accomplished by sharply dividing the ligament of Woody with the Metzenbaum scissors. There was noted to be some fibrofatty tissue in the prelaryngeal and pretracheal areas. This was excised and was submitted in a separate specimen cup labeled lymph nodes from the central compartment of the neck. These were submitted to Pathology for paraffin evaluation. The left lobe of the thyroid gland was mobilized anteromedially. The left middle thyroid vein was delineated, was ligated with 3-0 silk suture and was divided with the Harmonic scalpel. The left superior pole vessels were delineated, were individually ligated with 2-0 and 3-0 silk sutures and were divided with the Harmonic scalpel. The patient was noted to have a large nodule arising from the inferior pole of the left lobe of the thyroid gland that was principally retrosternal. The retrosternal component of the nodule was progressively elevated into the operative field using traction on the cervical component of the thyroid gland and digital mobilization. Once the retrosternal component of the left-sided thyroid nodule was delivered into the operative field, the left recurrent laryngeal nerve was identified was traced through its entire course and was preserved. The left inferior pole vessels were delineated, were individually ligated with 2-0 and 3-0 silk sutures and were divided with the Harmonic scalpel. What was felt to represent the left superior and left inferior parathyroid glands were preserved in situ. The branches of the left inferior thyroid artery were delineated close to the thyroid gland so as to preserve the blood supply to the parathyroid glands. The branches of the left inferior thyroid artery were ligated with 3-0 silk suture and were divided with a 15-blade scalpel. The left lobe of the thyroid gland was then removed. This was accomplished by sharply dividing the remainder of the ligament of Woody with the Metzenbaum scissors. The entire thyroid gland, weighing 22 g was submitted to Pathology for paraffin evaluation. Hemostasis was obtained with the electrocautery. A small square of thrombin-soaked Gelfoam was left adjacent to either side of the trachea. The strap muscles were reapproximated in the midline with a running 2-0 Vicryl suture. The subcutaneous tissue and platysma muscle were reapproximated with interrupted 3-0 Vicryl suture. The skin was closed with a 4-0 Monocryl placed in a subcuticular fashion. Mastisol, Steri-Strips, and a dressing were applied. The patient tolerated the procedure well. I was present for the entire case. Vick Kincaid MD CRM/MedQ/Dict: 07/11/2023 21:38:52 TRANS: 07/12/2023 01:07:51 JOB: [id number] [employer]ictJob#: [id number] [employer] Work Phone: 06-28-2023 Instructions Adore Morales MD - 06/28/2023 11:24 AM EDT Vitamin B12 (pg/mL) Date Value 06/21/2023 1,534 06/23/2022 250 (L) after oral supplement. continue daily oral supplement indefinitely Vitamin D, 25-OH (ng/mL) Date Value 06/21/2023 28 (L) 06/23/2022 22.0 (L) (continue supplements) Recent labs: See General explanation below The following were out of range TSH : borderline SLOW metabolism/ HYPOthyroid : Consider Rx supplement Repeat labs after thyroidectomy : timing per surgeons recommendations General lab comments: BMP basic metabolic panel includes kidney function (GFR and creatinine) and electrolytes Glucose -any glucose over 100 is concerning for PREDiabetes -diabetes is diagnosed if FASTING glucose >126 Or NONfasting >140 HbA1c (shows glucose control over the last 6 weeks-normal is < 6.0; goal for diabetics is less than 6-7 ), Hepatic panel shows liver function and proteins CBC: This show your blood counts / bone marrow functioning -WBC can be high in infection and the differential shows the breakdown of different white cells -hemoglobin and hematocrit show your red blood cell count to: If low shows anemia -platelets contribute to clotting TSH: Thyroid stimulating hormone; this measures the hormone from your pituitary that senses how much thyroid hormone is in your blood stream (actual thyroid hormones free T3 and T4) : Low TSH suggests high metabolism and high TSH suggest low metabolism (it is an inverse relationship) Vitamin D Updated goal : 20-40 ng/mL ; Most will develop a Vit D deficiency if they do not take a supplement. Most need 1517-6389 units/ daily. (Or weekly Rx) Do not take more than recommended as excess can be toxic. Vitamin B12 (pg/mL)This vitamin is very important for memory, brain and nerve function and red blood cell formation; most seem to need some sort of supplement: Recommend at least 500 mcg daily Rheumatologic labs: AALIYAH NEGATIVE/ normal (this is a screen for connective tissue disorders -such as Lupus) Sed rate (nonspecific marker for inflammation), 2 test for Rheumatoid arthritis: Rheum Factor and CCP Uric acid level (high levels cause GOUT) Screen for Lyme disease Note: any number out of range that is NOT specifically mentioned is NOT of clinical concern. I Adore Morales MD HPV #3 due : ordered : can get at follow up Hepatitis A and Hepatitis B Vaccines --new recommendations: : you likely had one or both of theses: get us vaccine records if able HEPATITIS A VACCINE - can prevent certain serious or deadly infections. Doctors recommend that adults get the hepatitis A vaccine if they have a [id number] chance of getting the infection. This includes adults who plan to travel to certain countries or have certain medical conditions. -- People can get hepatitis A after they eat food or drink water with the virus in it. People can also get it if they touch something that has the virus on it and then touch their food or put their hands in their mouth. HEPATITIS B VACCINE For all patients through age 59 years For patients 60+ years with risk. (chronic liver disease, and history of positive Hep C Ab) (NOTE: Diabetes is no longer considered a risk for Hepatitis B virus.) May be given to any adult 60+ years of age who requests it. Hepatitis B is a serious viral disease that can harm the liver. -the infection can lead to a liver condition called cirrhosis and increases the risk of getting liver cancer. How did I get the disease? -- There are a few ways to catch the hepatitis B virus. All of them involve mixing bodily fluids with other people. You could contract the disease by: Having sex with someone who was infected Sharing drug needles with someone who was infected Using infected needles for tattooing, acupuncture, or piercings Sharing toothbrushes, razors, or other personal items with someone who was infected documented in this encounter [facility] 06-28-2023 History of Present illness Narrative Images from the original note were not included. ..?/ Family Medicine ../? * * . ... . . * * . / \ Adore Morales MD [facility] [id number] [facility] [id number] TELEHEATH VIRTUAL VISIT see full documentation at end of note Chief Complaint Patient presents with Discuss results test/procedures ~~~~~~~~~~~~~~~~~~~~~~~~~~~~~~~~~~~ ~~~~~~~~ 06/28/23 Assessment and Plan and PATIENT INSTRUCTIONS FROM AVS Follow up in about 2 months (around 08/28/2023) for in-person visit : cpe /pap. Vitamin B 12 deficiency Improved w oral supplemetn : continue this Vitamin D deficiency Continue supplement Patient Instructions Vitamin B12 (pg/mL) Date Value 06/21/2023 1,534 06/23/2022 250 (L) after oral supplement. continue daily oral supplement indefinitely Vitamin D, 25-OH (ng/mL) Date Value 06/21/2023 28 (L) 06/23/2022 22.0 (L) (continue supplements) Recent labs: See General explanation below The following were out of range TSH : borderline SLOW metabolism/ HYPOthyroid : Consider Rx supplement Repeat labs after thyroidectomy : timing per surgeons recommendations General lab comments: BMP basic metabolic panel includes kidney function (GFR and creatinine) and electrolytes Glucose -any glucose over 100 is concerning for PREDiabetes -diabetes is diagnosed if FASTING glucose >126 Or NONfasting >140 HbA1c (shows glucose control over the last 6 weeks-normal is < 6.0; goal for diabetics is less than 6-7 ), Hepatic panel shows liver function and proteins CBC: This show your blood counts / bone marrow functioning -WBC can be high in infection and the differential shows the breakdown of different white cells -hemoglobin and hematocrit show your red blood cell count to: If low shows anemia -platelets contribute to clotting TSH: Thyroid stimulating hormone; this measures the hormone from your pituitary that senses how much thyroid hormone is in your blood stream (actual thyroid hormones free T3 and T4) : Low TSH suggests high metabolism and high TSH suggest low metabolism (it is an inverse relationship) Vitamin D Updated goal : 20-40 ng/mL ; Most will develop a Vit D deficiency if they do not take a supplement. Most need 5579-6445 units/ daily. (Or weekly Rx) Do not take more than recommended as excess can be toxic. Vitamin B12 (pg/mL)This vitamin is very important for memory, brain and nerve function and red blood cell formation; most seem to need some sort of supplement: Recommend at least 500 mcg daily Rheumatologic labs: AALIYAH NEGATIVE/ normal (this is a screen for connective tissue disorders -such as Lupus) Sed rate (nonspecific marker for inflammation), 2 test for Rheumatoid arthritis: Rheum Factor and CCP Uric acid level (high levels cause GOUT) Screen for Lyme disease Note: any number out of range that is NOT specifically mentioned is NOT of clinical concern. I Adore Morales MD HPV #3 due : ordered : can get at follow up Hepatitis A and Hepatitis B Vaccines --new recommendations: : you likely had one or both of theses: get us vaccine records if able HEPATITIS A VACCINE - can prevent certain serious or deadly infections. Doctors recommend that adults get the hepatitis A vaccine if they have a [id number] chance of getting the infection. This includes adults who plan to travel to certain countries or have certain medical conditions. -- People can get hepatitis A after they eat food or drink water with the virus in it. People can also get it if they touch something that has the virus on it and then touch their food or put their hands in their mouth. HEPATITIS B VACCINE For all patients through age 59 years For patients 60+ years with risk. (chronic liver disease, and history of positive Hep C Ab) (NOTE: Diabetes is no longer considered a risk for Hepatitis B virus.) May be given to any adult 60+ years of age who requests it. Hepatitis B is a serious viral disease that can harm the liver. -the infection can lead to a liver condition called cirrhosis and increases the risk of getting liver cancer. How did I get the disease? -- There are a few ways to catch the hepatitis B virus. All of them involve mixing bodily fluids with other people. You could contract the disease by: Having sex with someone who was infected Sharing drug needles with someone who was infected Using infected needles for tattooing, acupuncture, or piercings Sharing toothbrushes, razors, or other personal items with someone who was infected ~~~~~~~~~~~~~~~~~~~~~~~~~~~~~~~~~~~ ~~~~~~~~ HPI: Discuss results test/procedures Past/ recent labs and test reviewed Concerns: surgery soon Taking supplements Discussed hypothyroid Due for HPV #3 :no need to lamar Pap due end fo July06/21/2023 10:02 AM WBC 8.5 RBC 4.56 Hemoglobin 13.0 Hematocrit 38.9 MCV 85 MCH 28.4 MCHC 33.3 Platelet 255 RDW-CV% 14.1 MPV 10.8 Neutrophils 48.4 Neutrophil # 4.09 Lymphocytes 42.0 Lymph Absolute 3.55 Monocytes 7.4 Monocyte Absolute 0.63 Eosinophil 1.5 Eosinophil Absolute 0.12 Basophils 0.7 Basophil # 0.06 Glucose 90 Sodium 140 Potassium 4.0 Carbon Dioxide 26 Chloride 104 BUN 15 Creatinine 0.71 Calcium 10.3 Anion Gap 14 Estimated GFR 121 Albumin 4.3 Bilirubin, Direct 0.05 Bilirubin, Total 0.3 Alkaline Phosphatase 76 ALT (SGPT) 14 AST (SGOT) 13 Protein, Total 6.9 Rheumatoid Factor <10 CCP antibody, IgG <0.5 Uric Acid 3.7 Sed Rate (ESR) 14 AALIYAH SCRN Negative Lyme Disease Screen <0.90 Streptolysin O Ab <100 Vitamin D, 25-OH 28 (L) Vitamin B12 1,534 TSH (high sens.) 4.435 Legend:. covid VACCINATED not fully boosted Time spent on phone or video: 15 minutes Plus pre and post charting : total time: 22 minutes Last visit: Nurse Visit on 06/13/2023 in PRE ADMISSION TESTING with Ale Marinelli RN for Pre-op evaluation. Most recent visit with ADORE MORALES was on 08/06/2022 Relevant past and current data reviewed/ see chart and relevant data copied below Epic charting revd/ Care Team updated Patient Care Team: Adore Morales MD as PCP - General (Family Medicine) Vick Kincaid MD as Physician (General Surgery) Current Outpatient Medications on File Prior to Visit Medication Sig Dispense Refill vitamin D, Cholecalciferol, 25 MCG (1000 UT) TABS tablet Take 3 Tablets by mouth daily. 270 Tablet 4 Cyanocobalamin (B-12) 2500 MCG TABS Take 1 Tablet by mouth daily. 90 Tablet 4 No current facility-administered medications on file prior to visit. Reviewed PMH / FH/ SH Significant for: see HPI Past Medical History: Diagnosis Date ADHD (attention deficit hyperactivity disorder) 2018 Multiple thyroid nodules 10/10/2022 US 09/2022 Several nodules One : FNA recommended US : repeat in 1 yr PCOS (polycystic ovarian syndrome) Vitamin B 12 deficiency 08/06/2022 Vitamin D deficiency 08/06/2022 No past surgical history on file. Family History Problem Relation Age of Onset Depression Mother Psychiatric Condition Mother Miscarriage Mother Alcoholism Father Hearing Loss Father Hypertension Father Hearing Loss Maternal Grandfather Cancer Maternal Grandmother Psychiatric Condition Maternal Grandmother Stroke Maternal Grandmother Diabetes Mellitus Paternal Grandfather Cancer Paternal Grandmother Asthma Brother Asthma Sister Depression Sister Psychiatric Condition Sister Miscarriage Sister Cancer Maternal Uncle Depression Maternal Aunt Psychiatric Condition Maternal Aunt Hearing Loss Paternal Uncle Immunization History Administered Date(s) Administered HPV, 9-valent (Gardasil 9) (KDQ=901) 06/23/2022, 08/06/2022 Meningococcal conjugate (MCV4,Men-ACWY), Menactra (MCV4P) (EGP=079) 04/28/2010, 06/16/2015 Pfizer Monovalent (12+ yrs) SARS-COV-2 (COVID-19) vaccine, mRNA, spike protein, LNP, pres. free, 30 mcg/0.3mL dose (DIE=975) 08/01/2020, 08/22/2020 Pneumococcal conjugate 20 valent (PCV20), polysaccharide [id number] conjugate, adjuvant, PF (ECB=500) 08/06/2022 Tdap (XJC=946) 04/28/2010, 08/01/2020 Walter was seen today for discuss results test/procedures. Diagnoses and all orders for this visit: Vitamin D deficiency Vitamin B 12 deficiency Multiple thyroid nodules Medication management Other orders - HUMAN PAPILLOMA VIRUS VACCINE,TYPES 6,11,16,18,31,33,45,52,58 (9-VALENT); Future Vitamin B 12 deficiency Improved w oral supplemetn : continue this Vitamin D deficiency Continue supplement PATIENT INSTRUCTIONS FROM AVS Noted at TOP of this note ROS in addition to HPI: NA Physical exam There were no vitals filed for this visit. GENERAL APPEARANCE: alert and oriented, NAD. EYES: PERRL, EOMI, no scleral icterus, conjunctiva clear. NECK/THYROID: visually WNL. RESPIRATORY: calm, unlabored SKIN: visually Normal Physical Exam Adore Morales MD 06/28/23 . * * . ... . . * * . ... . . * * . ... . . * * . ... . . * * . ... . . * * . ... . * * . Documentation: Mode: Video Consent: This visit was initiated by the patient. Audio and visual communication was utilized in real-time. I confirmed understanding of risks and benefits of telehealth visits and obtained consent to proceed with the telemedicine visit. Location of Patient: Home of patient Time-Based Billing Justifications: Charting in [facility] Patient visit (including performing a medically appropriate exam) Obtaining history (or reviewing separately obtained history) Reviewing (chart, labs, and other clinical notes) Counseling/educating the patient/family/caregiver Ordering/interpreting (medications, tests, procedures) Referring/communicating (with other health cardiac care nurse) ~~~~~~~~~~~~~~~~~~~~~~~~~~~~~~~~~~~ ~~~~~~~~ Relevant Past Data ~~~~recent past visits/ consult :partial copy/ edited for clarity & brevity~~~~~~~~~~~~~~~~~~ Precharting [facility] chart review: past visits/ consults /labs / imaging Office Visit 05/13/2023 [facility] Vick Kinacid MD General Surgery Thyroid nodule Dx Progress Notes Vick Kincaid MD (Physician) General Surgery This is a 23-year-old white female who returns to me in routine follow-up for a known palpable 3 cm hyperechoic nodule in the left lobe of the thyroid gland. she also has 2 nonpalpable nodules in the right lobe of the thyroid gland 1 measuring 1.1 in the 2nd measuring 1.4 cm, both of which are hypoechoic. I 1st evaluated the patient on January 28, 2023. At that time, I performed a fine-needle aspiration biopsy of the palpable nodule in the left lobe of the thyroid gland and this revealed atypia of undetermined significance.The patient denies compressive symptoms. She has no prior history of head or neck irradiation. Her mother is known to have hypothyroidism. Since I last evaluated her, the patient has noticed no change in size of the nodule. On my examination the patient had an approximate 3 cm nodule palpable in the inferior pole of the left lobe of the thyroid gland that was extending retrosternally. She had no discrete nodule palpable in the right lobe of the thyroid gland. My impression is the patient has bilateral nodular thyroid disease with a 3.1 cm hyperechoic nodule in the left lobe of the thyroid gland with atypia of undetermined significance. Plan: After verbal consent was obtained, a repeat fine-needle aspiration biopsy of the palpable nodule in the left lobe of the thyroid gland was completed. Four separate fine-needle aspiration biopsies were performed with 22 gauge 1-1/2 inch needles. All the specimens were smeared on the glass slides. Half the slides were fixed with an alcohol fixative and half the slides were allowed to air dry. All the specimens were submitted to cytopathology for microscopic examination. A 5th fine-needle aspiration biopsy was performed for reflex Afirma molecular testing if the cytologic examination reveals atypia of undetermined significance. Addendum: Repeat fine-needle aspiration biopsy of the nodule in the left lobe of the thyroid gland demonstrates persistent atypia of undetermined significance. I am awaiting the results of the molecular testing. Addendum: Afirma testing is suspicious for cancer. I will recommend proceeding with a definitive total thyroidectomy given the nodule in the left lobe is suspicious for cancer and that she has 2 additional nodules in the right lobe of her thyroid gland. [facility] / see full documentation at end of note Chief Complaint Patient presents with Discuss results test/procedures ~~~~~~~~~~~~~~~~~~~~~~~~~~~~~~~~~~~ ~~~~~~~~ Assessment and Plan and PATIENT INSTRUCTIONS FROM AVS: Visit date: 11/05/22 No follow-ups on file. Patient Instructions Labs due Labs ordered to evaluate joint pain Rx for toenail fungus and labs in 4-6w Future Order Information Expected Expires 09/23/2022 (Approximate) Please make the appointment(s) below, or ask if they can be made before you leave the clinic. Please call the [facility] at [phone] to schedule an appointment if one was not made for you. 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 Please review NOTE from beginning: Plan at the top. .?/ ./? ./ \ . * * . ... . . * * . Adore Morales MD . * * . ... . . * * .. * * . ... . . * * . Adore Morales MD documented in this encounter [facility] 06-28-2023 Evaluation + Plan note Associated Problem(s): Vitamin D deficiency Continue supplement [facility] 06-28-2023 Evaluation + Plan note Associated Problem(s): Vitamin B 12 deficiency Improved w oral supplemetn : continue this [facility] 06-28-2023 Miscellaneous Notes Associated Problem(s): Vitamin D deficiency Continue supplement Associated Problem(s): Vitamin B 12 deficiency Improved w oral supplemetn : continue this documented in this encounter [facility] 06-13-2023 Instructions Ale Marinelli RN - 06/13/2023 8:55 AM EDT You will be entering the hospital at the new entrance- [facility], which is on [facility]. [facility] Parking Instructions Please plan extra time for parking and shuttle service. We recommend arriving at least 15 minutes prior to the time your care team advises you need to be here. Parking is available in the [facility] accessible from [facility] and [facility]. 04/10 shuttle service from the garage to [facility] is available. Go to the ground floor of the parking garage to reach the shuttle pick-up station located just outside of the elevator and stairs. Shuttle service will drop you off at [facility] Entrance. [employer] service will be available at [facility] Entr[facility] if you would prefer senior sql database developer over parking ([facility] [employer] Service Hours: Tuesday-Tuesday, 5:30 a.m. - 8:00 p.m.). Enter The [facility] Entrance and go to the Admitting/Registration Desk to check in for your procedure. Please use this CHECKLIST to prepare for your surgery/procedure: ? Assume that any lab or testing done during your Pre-admission testing appointment is within normal limits unless otherwise contacted. ? Expect a call from [employer] one business day prior to surgery for surgery arrival time and location. ? Please plan to restart your medications the day after surgery unless otherwise explicitly instructed. ? Please contact your surgeon s/proceduralist s office for any surgical or recovery types of questions. ? CANCELLING YOUR SURGERY/PROCEDURE: If you get a cold, are not feeling well, or become , please call your surgeon s office as soon as possible. ? Refer to your Preparing for Your Surgery/Procedure booklet or [email or web address] if you have questions. Contact the Pre-Admission Testing department at [phone] or your surgeon's office with any questions that are not answered. ? Eating and drinking before surgery: Adult Patients: The patient is to have no solid food after midnight. Patient MAY have clear liquids up until 3 hours before surgery (2 hours prior to arrival time given). Pediatric Patients (under the age of 1212 years old): Patients are not to have solid food for 8 hours prior to coming for surgery. Patients can have infant formula or non-human milk (skim, 2%, whole, nut-milks, soy, etc.) 6 hours prior to coming for surgery. Patients can have breast milk up to 4 hours prior to coming for surgery. Patients can have clear liquids (water, flavored vincent, Pedialyte) up to 2 hours prior to coming for surgery. ON THE DAY OF SURGERY: ? DO bring your ID, insurance card, medication list, and a small amount of hay for filling prescriptions and any medical co-pays. ? Do NOT wear any jewelry, (including rings, earrings, or mouth, tongue, or body piercings). Metal jewelry could cause constriction, amputation, or brown. Loose or bulky things in your mouth can be unsafe and result in breathing problems. ? DO bring glasses if you wear contacts and other assistance items such as oxygen, inhaler, cane, walker, etc. ? Do NOT bring valuables, credit cards, or large amounts of hay. ? Do NOT wear lotion or strong-smelling fragrance (perfume, cologne, cream or lotion). ? ARRANGE FOR A RIDE: If you are scheduled to go home the same day of surgery, a responsible adult MUST drive or accompany you home in a car, cab, shared ride service, or Metro-van. You will not be allowed to drive yourself home or travel home alone. Your surgery may be cancelled if you do not have a ride. A responsible adult must stay with you after surgery. [facility] if you need transportation assistance or have concerns about going home [phone]. ? PEDIATRIC or ADOLESCENTS: Parents or a legal guardian must remain at the hospital during surgery. You will need to make childcare arrangements for your other small children to remain at home or bring an adult with you who can supervise them in the waiting area while you are with your child. Please bring legal guardianship papers with you if applicable. Patients who whose assigned sex at was female, and are starting puberty, will be tested for per hospital policy. ? SLEEP APNEA PATIENTS: Bring your sleep apnea machine and mask. ? PLEASE BE ON TIME. A late arrival may result in the cancellation/ delay of your surgery. Thank you for choosing [facility]; it is our pleasure to care for you On the morning of your surgery, please take only the following medications, with a small sip of water: NONE Do not take any Aspirin 7 days before the surgery. Do not take any Ibuprofen products/NSAIDs 3 days before surgery. May take over the counter Acetaminophen (Tylenol) as needed for pain. Do not take any herbal medications 7 days prior to surgery (Fish Oil, Ginseng, Ginko Biloba) documented in this encounter [facility] [employer] Work Phone: 05-19-2023 Note Addended by: Deonna TOLENTINO on: 05/19/2023 09:20 AM Modules accepted: Orders [facility] 05-19-2023 Miscellaneous Notes Addended by: TG TOLENTINO on: 05/19/2023 09:20 AM Modules accepted: Orders documented in this encounter [facility] 05-18-2023 Note FNA Thyroid Nodule, left lobe, Afirma: SPECIMEN ADEQUACY: Satisfactory for evaluation GENERAL CATEGORIZATION: Atypia of Undetermined Significance INTERPRETATION: Moderately to markedly cellular specimen consisting of groups of follicular cells with architectural atypia including focally prominent microfollicles and nuclear crowding in a background of occasional thick colloid fragments, skeletal muscle tissue, fibrous tissue, and adipocytes. Primary screener: LITTLE Dubois(ASCP) . I certify that I personally conducted the diagnostic evaluation of the above specimen(s) and have rendered the final diagnosis(es). [facility] [facility] Work Phone: 05-18-2023 Note FNA Thyroid Nodule, left lobe, Afirma: SPECIMEN ADEQUACY: Satisfactory for evaluation GENERAL CATEGORIZATION: Atypia of Undetermined Significance INTERPRETATION: Moderately to markedly cellular specimen consisting of groups of follicular cells with architectural atypia including focally prominent microfollicles and nuclear crowding in a background of occasional thick colloid fragments, skeletal muscle tissue, fibrous tissue, and adipocytes. Primary screener: LITTLE Dubois(ASCP) . I certify that I personally conducted the diagnostic evaluation of the above specimen(s) and have rendered the final diagnosis(es). [facility] [employer] [facility] Work Phone: 05-18-2023 Note FNA Thyroid Nodule, left lobe, Afirma: SPECIMEN ADEQUACY: Satisfactory for evaluation GENERAL CATEGORIZATION: Atypia of Undetermined Significance INTERPRETATION: Moderately to markedly cellular specimen consisting of groups of follicular cells with architectural atypia including focally prominent microfollicles and nuclear crowding in a background of occasional thick colloid fragments, skeletal muscle tissue, fibrous tissue, and adipocytes. Primary screener: LITTLE Dubois(ASCP) . I certify that I personally conducted the diagnostic evaluation of the above specimen(s) and have rendered the final diagnosis(es). [facility] [employer] [facility] Work Phone: 05-18-2023 Note FNA Thyroid Nodule, left lobe, Afirma: SPECIMEN ADEQUACY: Satisfactory for evaluation GENERAL CATEGORIZATION: Atypia of Undetermined Significance INTERPRETATION: Moderately to markedly cellular specimen consisting of groups of follicular cells with architectural atypia including focally prominent microfollicles and nuclear crowding in a background of occasional thick colloid fragments, skeletal muscle tissue, fibrous tissue, and adipocytes. Primary screener: LITTLE Dubois(ASCP) . I certify that I personally conducted the diagnostic evaluation of the above specimen(s) and have rendered the final diagnosis(es). [facility] [employer] [facility] Work Phone: 05-18-2023 Note FNA Thyroid Nodule, left lobe, Afirma: SPECIMEN ADEQUACY: Satisfactory for evaluation GENERAL CATEGORIZATION: Atypia of Undetermined Significance INTERPRETATION: Moderately to markedly cellular specimen consisting of groups of follicular cells with architectural atypia including focally prominent microfollicles and nuclear crowding in a background of occasional thick colloid fragments, skeletal muscle tissue, fibrous tissue, and adipocytes. Primary screener: LITTLE Dubois(ASCP) . I certify that I personally conducted the diagnostic evaluation of the above specimen(s) and have rendered the final diagnosis(es). [facility] [employer] Work Phone: 05-18-2023 Note FNA Thyroid Nodule, left lobe, Afirma: SPECIMEN ADEQUACY: Satisfactory for evaluation GENERAL CATEGORIZATION: Atypia of Undetermined Significance INTERPRETATION: Moderately to markedly cellular specimen consisting of groups of follicular cells with architectural atypia including focally prominent microfollicles and nuclear crowding in a background of occasional thick colloid fragments, skeletal muscle tissue, fibrous tissue, and adipocytes. Primary screener: LITTLE Dubois(ASCP) . I certify that I personally conducted the diagnostic evaluation of the above specimen(s) and have rendered the final diagnosis(es). [facility] [employer] Work Phone: 05-13-2023 History of Present illness Narrative This is a 23-year-old white female who returns to tx in routine follow-up for a known palpable 3 cm hyperechoic nodule in the left lobe of the thyroid gland. she also has 2 nonpalpable nodules in the right lobe of the thyroid gland 1 measuring 1.1 in the 2nd measuring 1.4 cm, both of which are hypoechoic. I 1st evaluated the patient on January 28, 2023. At that time, I performed a fine-needle aspiration biopsy of the palpable nodule in the left lobe of the thyroid gland and this revealed atypia of undetermined significance.The patient denies compressive symptoms. She has no prior history of head or neck irradiation. Her mother is known to have hypothyroidism. Since I last evaluated her, the patient has noticed no change in size of the nodule. On my examination the patient had an approximate 3 cm nodule palpable in the inferior pole of the left lobe of the thyroid gland that was extending retrosternally. She had no discrete nodule palpable in the right lobe of the thyroid gland. My impression is the patient has bilateral nodular thyroid disease with a 3.1 cm hyperechoic nodule in the left lobe of the thyroid gland with atypia of undetermined significance. Plan: After verbal consent was obtained, a repeat fine-needle aspiration biopsy of the palpable nodule in the left lobe of the thyroid gland was completed. Four separate fine-needle aspiration biopsies were performed with 22 gauge 1-1/2 inch needles. All the specimens were smeared on the glass slides. Half the slides were fixed with an alcohol fixative and half the slides were allowed to air dry. All the specimens were submitted to cytopathology for microscopic examination. A 5th fine-needle aspiration biopsy was performed for reflex Afirma molecular testing if the cytologic examination reveals atypia of undetermined significance. Addendum: Repeat fine-needle aspiration biopsy of the nodule in the left lobe of the thyroid gland demonstrates persistent atypia of undetermined significance. I am awaiting the results of the molecular testing. Addendum: Afirma testing is suspicious for cancer. I will recommend proceeding with a definitive total thyroidectomy given the nodule in the left lobe is suspicious for cancer and that she has 2 additional nodules in the right lobe of her thyroid gland. documented in this encounter [facility] 05-13-2023 History of Present illness Narrative This is a 23-year-old white female who returns to tx in routine follow-up for a known palpable 3 cm Hyperechoic nodule in the left lobe of the thyroid gland. she also has 2 nonpalpable nodules in the right lobe of the thyroid gland 1 measuring 1.1 in the 2nd measuring 1.4 cm, both of which are hypoechoic. I 1st evaluated the patient on January 28, 2023. At that time, I performed a fine-needle aspiration biopsy of the palpable nodule in the left lobe of the thyroid gland and this revealed atypia of undetermined significance.The patient denies compressive symptoms. She has no prior history of head or neck irradiation. Her mother is known to have hypothyroidism. Since I last evaluated her, the patient has noticed no change in size of the nodule. On my examination the patient had an approximate 3 cm nodule palpable in the inferior pole of the left lobe of the thyroid gland that was extending retrosternally. She had no discrete nodule palpable in the right lobe of the thyroid gland. My impression is the patient has bilateral nodular thyroid disease with a 3.1 cm hyperechoic nodule in the left lobe of the thyroid gland with atypia of undetermined significance. Plan: After verbal consent was obtained, a repeat fine-needle aspiration biopsy of the palpable nodule in the left lobe of the thyroid gland was completed. Four separate fine-needle aspiration biopsies were performed with 22 gauge 1-1/2 inch needles. All the specimens were smeared on the glass slides. Half the slides were fixed with an alcohol fixative and half the slides were allowed to air dry. All the specimens were submitted to cytopathology for microscopic examination. A 5th fine-needle aspiration biopsy was performed for reflex Afirma molecular testing if the cytologic examination reveals atypia of undetermined significance. Addendum: Repeat fine-needle aspiration biopsy of the nodule in the left lobe of the thyroid gland demonstrates persistent atypia of undetermined significance. I am awaiting the results of the molecular testing. documented in this encounter [facility] [employer] [facility] Work Phone: 05-13-2023 History of Present illness Narrative This is a 23-year-old white female who returns to tx in routine follow-up for a known palpable 3 cm Hyperechoic nodule in the left lobe of the thyroid gland. she also has 2 nonpalpable nodules in the right lobe of the thyroid gland 1 measuring 1.1 in the 2nd measuring 1.4 cm, both of which are hypoechoic. I 1st evaluated the patient on January 28, 2023. At that time, I performed a fine-needle aspiration biopsy of the palpable nodule in the left lobe of the thyroid gland and this revealed atypia of undetermined significance.The patient denies compressive symptoms. She has no prior history of head or neck irradiation. Her mother is known to have hypothyroidism. Since I last evaluated her, the patient has noticed no change in size of the nodule. On my examination the patient had an approximate 3 cm nodule palpable in the inferior pole of the left lobe of the thyroid gland that was extending retrosternally. She had no discrete nodule palpable in the right lobe of the thyroid gland. My impression is the patient has bilateral nodular thyroid disease with a 3.1 cm hyperechoic nodule in the left lobe of the thyroid gland with atypia of undetermined significance. Plan: After verbal consent was obtained, a repeat fine-needle aspiration biopsy of the palpable nodule in the left lobe of the thyroid gland was completed. Four separate fine-needle aspiration biopsies were performed with 22 gauge 1-1/2 inch needles. All the specimens were smeared on the glass slides. Half the slides were fixed with an alcohol fixative and half the slides were allowed to air dry. All the specimens were submitted to cytopathology for microscopic examination. A 5th fine-needle aspiration biopsy was performed for reflex Afirma molecular testing if the cytologic examination reveals atypia of undetermined significance. documented in this encounter [facility] [employer] [facility] Work Phone: 05-13-2023 History of Present illness Narrative This is a 23-year-old white female who returns to me in routine follow-up for a known palpable 3 cm Hyperechoic nodule in the left lobe of the thyroid gland. she also has 2 nonpalpable nodules in the right lobe of the thyroid gland 1 measuring 1.1 in the 2nd measuring 1.4 cm, both of which are hypoechoic. I 1st evaluated the patient on January 28, 2023. At that time, I performed a fine-needle aspiration biopsy of the palpable nodule in the left lobe of the thyroid gland and this revealed atypia of undetermined significance.The patient denies compressive symptoms. She has no prior history of head or neck irradiation. Her mother is known to have hypothyroidism. Since I last evaluated her, the patient has noticed no change in size of the nodule. On my examination the patient had an approximate 3 cm nodule palpable in the inferior pole of the left lobe of the thyroid gland that was extending retrosternally. She had no discrete nodule palpable in the right lobe of the thyroid gland. My impression is the patient has bilateral nodular thyroid disease with a 3.1 cm hyperechoic nodule in the left lobe of the thyroid gland with atypia of undetermined significance. Plan: After verbal consent was obtained, a repeat fine-needle aspiration biopsy of the palpable nodule in the left lobe of the thyroid gland was completed. Four separate fine-needle aspiration biopsies were performed with 22 gauge 1-1/2 inch needles. All the specimens were smeared on the glass slides. Half the slides were fixed with an alcohol fixative and half the slides were allowed to air dry. All the specimens were submitted to cytopathology for microscopic examination. A 5th fine-needle aspiration biopsy was performed for reflex Afirma molecular testing if the cytologic examination reveals atypia of undetermined significance. Addendum: Repeat fine-needle aspiration biopsy of the nodule in the left lobe of the thyroid gland demonstrates persistent atypia of undetermined significance. I am awaiting the results of the molecular testing. documented in this encounter [facility] [employer] [facility] Work Phone: 05-13-2023 History of Present illness Narrative This is a 23-year-old white female who returns to me in routine follow-up for a known palpable 3 cm hyperechoic nodule in the left lobe of the thyroid gland. she also has 2 nonpalpable nodules in the right lobe of the thyroid gland 1 measuring 1.1 in the 2nd measuring 1.4 cm, both of which are hypoechoic. I 1st evaluated the patient on January 28, 2023. At that time, I performed a fine-needle aspiration biopsy of the palpable nodule in the left lobe of the thyroid gland and this revealed atypia of undetermined significance.The patient denies compressive symptoms. She has no prior history of head or neck irradiation. Her mother is known to have hypothyroidism. Since I last evaluated her, the patient has noticed no change in size of the nodule. On my examination the patient had an approximate 3 cm nodule palpable in the inferior pole of the left lobe of the thyroid gland that was extending retrosternally. She had no discrete nodule palpable in the right lobe of the thyroid gland. My impression is the patient has bilateral nodular thyroid disease with a 3.1 cm hyperechoic nodule in the left lobe of the thyroid gland with atypia of undetermined significance. Plan: After verbal consent was obtained, a repeat fine-needle aspiration biopsy of the palpable nodule in the left lobe of the thyroid gland was completed. Four separate fine-needle aspiration biopsies were performed with 22 gauge 1-1/2 inch needles. All the specimens were smeared on the glass slides. Half the slides were fixed with an alcohol fixative and half the slides were allowed to air dry. All the specimens were submitted to cytopathology for microscopic examination. A 5th fine-needle aspiration biopsy was performed for reflex Afirma molecular testing if the cytologic examination reveals atypia of undetermined significance. Addendum: Repeat fine-needle aspiration biopsy of the nodule in the left lobe of the thyroid gland demonstrates persistent atypia of undetermined significance. I am awaiting the results of the molecular testing. Addendum: Afirma testing is suspicious for cancer. I will recommend proceeding with a definitive total thyroidectomy given the nodule in the left lobe is suspicious for cancer and that she has 2 additional nodules in the right lobe of her thyroid gland. documented in this encounter [facility] [employer] [facility] Work Phone: 04-06-2023 History of Present illness Narrative SUBJECTIVE: History was provided by the patient. Symptoms include congestion, coryza, sore throat, fever, and cough. Onset was 2 days ago, with gradually worsening course since that time. Portions of record reviewed for pertinent issues: active problem list, medication list, allergies, and family history. OBJECTIVE: Vital signs reviewed. General appearance: alert, no distress, cooperative. Ears: R TM - normal, L TM - normal. Nose: clear rhinorrhea. Oropharynx: normal. Neck: supple and small, benign anterior cervical nodes bilaterally. Lungs: clear to auscultation. Heart: regular rate and rhythm and no murmurs, clicks, or gallops. [facility] (J02.9) Sore throat (primary encounter diagnosis) Comment: Plan: RAPID STREP A W/CULTURE REFLEX Orders & Meds Signed During This Encounter Rapid Strep A with Culture Reflex [id number] 30-2-10 MG/5ML SYRP Supportive care 1) See visit diagnoses and orders. Strep screening was not felt to be indicated based on history and physical exam findings. 2) Explained viral etiology of URI and rationale for symptomatic treatment rather than use of an antibiotic. Instruction provided in the use of fluids, vaporizer, acetaminophen, and other OTC medication for symptom control. 3) See disposition. Recheck as needed for persistence, worsening, or appearance of new symptoms. Patient was identified by name and date of . Lianne Bueno Patient at risk for falls:No Falls Risk protocol implemented: No documented in this encounter [facility] 02-02-2023 Note FNA Thyroid Nodule, left lobe: SPECIMEN ADEQUACY: Satisfactory for evaluation GENERAL CATEGORIZATION: Atypia of Undetermined Significance INTERPRETATION: Moderately to highly cellular smears containing groups of follicular cells with overlapping nuclei and areas with a predominant microfollicular pattern, sheets and singly scattered follicular cells, hemosiderin-laden macrophages, and thin and thick colloid. Primary screener: LITTLE Dubois(ASCP) . I certify that I personally conducted the diagnostic evaluation of the above specimen(s) and have rendered the final diagnosis(es). [facility] Work Phone: 02-02-2023 Note FNA Thyroid Nodule, left lobe: SPECIMEN ADEQUACY: Satisfactory for evaluation GENERAL CATEGORIZATION: Atypia of Undetermined Significance INTERPRETATION: Moderately to highly cellular smears containing groups of follicular cells with overlapping nuclei and areas with a predominant microfollicular pattern, sheets and singly scattered follicular cells, hemosiderin-laden macrophages, and thin and thick colloid. Primary screener: LITTLE Dubois(ASCP) . I certify that I personally conducted the diagnostic evaluation of the above specimen(s) and have rendered the final diagnosis(es). [facility] Work Phone: 01-28-2023 History of Present illness Narrative Chief complaint: Thyroid nodules. History of present illness: This is a 22-year-old white female referred to me by Adore Moody MD for my advice and opinion regarding multiple thyroid nodules. The patient was noted to have an enlarged thyroid gland on routine physical examination on August 06, 2022. This was followed with an ultrasound examination of her neck on October 06, 2022. In the left lobe of the thyroid gland she had a 3.1 cm solid hyperechoic nodule. In the right lobe of the thyroid gland she had a 1.1 cm and a 1.4 cm solid hypoechoic nodule. She had a serum TSH level on June 23, 2022 which was 1.654. The patient denies compressive symptoms. She has no prior history of head or neck irradiation. Her mother has hypothyroidism. There is no family medical history of thyroid cancer or other endocrinopathies. Past medical history: She has polycystic ovary syndrome and a history of cervical dysplasia. Past surgical history: None. Family medical history: Her father is alive with hypertension. Her mother is alive with hypothyroidism. She has 1 brother and 2 sisters who are healthy. Social history: She vapes daily for the past 5 years. She has 10 drinks per month. She uses marijuana daily. She works at [employer]. Review of Systems Constitutional: No fever, chills, weight loss, loss of appetite HEENT: No recent change in visual acuity, hearing loss, problems with the nose mouth and throat Cardiovascular: No chest pain, palpitations, hypertension, hypercholesterolemia Respiratory: No cough, wheezing, shortness of breath Gastrointestinal: No abdominal pain, blood in the bowel movements, change in bowel habit Genitourinary: No dysuria, hematuria, history of kidney stones Hematologic: No anemia, bleeding problems Endocrine: She has polycystic ovary syndrome she has cervical dysplasia. No diabetes mellitus Neurologic: No headache, dizziness, lightheadedness, seizures, stroke Psychiatric: No depression or anxiety Skin: No eczema, psoriasis, skin cancer Vascular: No history of deep vein thrombosis or pulmonary embolus Musculoskeletal: She complains of back pain. She also has bilateral ankle pain. On examination this is a pleasant white female with a body mass index of 42.74 who is in no apparent distress. HEENT: Head atraumatic normocephalic. Pupils equal round reactive to light accommodation. Extraocular movements were intact. Neck: She had a 3 cm nodule palpable in the inferior pole of the left lobe of the thyroid gland. She had no discrete nodule palpable in the right lobe of the thyroid gland. Her trachea was midline. She had no cervical or supraclavicular lymphadenopathy. Lungs: Clear. Heart: Regular rate and rhythm normal S1-S2. No murmur gallop or thrill. Abdomen: Nondistended and soft. She had no palpable masses, tenderness organomegaly. Extremity exam: No edema, tremor, tenderness or skin rash. Neurologic exam: Cranial nerves 3-12 intact. Motor and sensory exam were grossly intact. My impression is the patient has a 3 cm palpable nodule in the left lobe of the thyroid gland and 2 nonpalpable nodules in the right lobe of the thyroid gland. She is biochemically euthyroid. Plan: I proceeded with a fine-needle aspiration biopsy of the palpable nodule in the left lobe of the thyroid gland. Four separate fine-needle aspiration biopsies were performed using 22 gauge 1-1/2 inch needles. All the specimens were smeared on the glass slides. Half the slides were fixed with an alcohol fixative and half the slides were allowed to air dry. All the slides were submitted to cytopathology for microscopic examination. I indicated to the patient that if the fine-needle aspiration biopsy is benign, I will recommend active surveillance. This will consist of a yearly physical examination, a yearly screening serum TSH level and periodic ultrasound examination. She can follow-up with Isamar Lloyd CNP in 1 year. If the fine-needle aspiration biopsy is suspicious or malignant I will recommend proceeding with a definitive total thyroidectomy. General Surgery New Patient Visit Chief Complaint: thyroid nodules History of Present Illness: A 22 year old White female is referred by Adore Morales MD to the Surgery Clinic for evaluation of thyroid nodules. She was seen for a routine office visit with her primary care provider on 08/06/22 and was noted to have an enlarged thyroid on physical exam. She followed up with a thyroid ultrasound on 10/06/22 demonstrating a right 1.1cm solid hypoechoic nodule, a right 1.4cm solid hypoechoic nodule, and a left 3.1cm solid hypoechoic nodule. Her most recent TSH from 06/23/22 was 1.654. She denies compressive symptoms. She has no history of head or neck irradiation. Her mother has hypothyroidism. She has no family history of thyroid cancer or other endocrinopathies. US Thyroid 10/06/22 FINDINGS: Background parenchyma: The thyroid gland is normal in size. Heterogeneous parenchymal echogenicity. Right Thyroid: 3.1 x 1.2 x 1.4 cm. Nodule 1: Size: 1.1 x 0.6 x 0.9 cm Location: Right mid Composition: solid or almost completely solid: 2 points Echogenicity: hypoechoic: 2 points Shape: wider than tall: 0 points Margins: smooth: 0 points Echogenic foci: none: 0 points ACR Total Points: 4; ACR TI-RADS risk category: TR4 nodule. Recommendations: No FNA. Recommend annual follow-up. Nodule 2: Size: 1.4 x 0.9 x 1.1 cm Location: Right inferior Composition: solid or almost completely solid: 2 points Echogenicity: hypoechoic: 2 points Shape: wider than tall: 0 points Margins: smooth: 0 points Echogenic foci: none: 0 points ACR Total Points: 4; ACR TI-RADS risk category: TR4 nodule. Recommendations: No FNA. Recommend annual follow-up. Isthmus AP Diameter: 3 mm. No discrete nodule. Left Thyroid: 4.7 x 2.0 x 2.0 cm. Nodule 3: Size: 3.1 x 1.6 x 2.4 cm Location: Left mid Composition: solid or almost completely solid: 2 points Echogenicity: hyperechoic: 1 point Shape: wider than tall: 0 points Margins: smooth: 0 points Echogenic foci: none: 0 points ACR Total Points: 3; ACR TI-RADS risk category: TR3 nodule. Recommendations: Recommend FNA. No abnormal lymph nodes are demonstrated. IMPRESSION: 1. Nonenlarged thyroid gland. 2. Recommend FNA of left thyroid nodule (nodule #3, 3.1 cm, TR 3). 3. Recommend annual follow-up of right thyroid nodules (nodule #1, #2). No past medical history on file. No past surgical history on file. Social History Socioeconomic History Marital status: Single Highest education level: Some college, no degree Tobacco Use Smoking status: Every Day Types: E-cigarette Smokeless tobacco: Never Tobacco comments: THC Social Determinants of Health Financial Resource Strain: Low Risk (08/06/2022) Overall Financial Resource Strain (CARDIA) Difficulty of Paying Living Expenses: Not very hard Food Insecurity: Food Insecurity Present (08/06/2022) Hunger Vital Sign Worried About Running Out of Food in the Last Year: Sometimes true Ran Out of Food in the Last Year: Never true Transportation Needs: Unmet Transportation Needs (08/06/2022) PRAPARE - Transportation Lack of Transportation (Medical): Yes Lack of Transportation (Non-Medical): Yes Physical Activity: Inactive (08/06/2022) Exercise Vital Sign Days of Exercise per Week: 0 days Minutes of Exercise per Session: 0 min Stress: No Stress Concern Present (08/06/2022) [place] [facility] - Occupational Stress Questionnaire Feeling of Stress : Only a little Social Connections: Socially Isolated (08/06/2022) Social Connection and Isolation Panel [NHANES] Frequency of Communication with Friends and Family: Once a week Frequency of Social Gatherings with Friends and Family: More than three times a week Attends Orthodoxy Services: Never Active Member of Clubs or Organizations: No Attends Club or Organization Meetings: Never Marital Status: Never Intimate Partner Violence: Not At Risk (08/06/2022) Humiliation, Afraid, Rape, and Kick questionnaire Fear of Current or Ex-Partner: No Emotionally Abused: No Physically Abused: No Sexually Abused: No Review Of Systems Skin: negative Eyes: negative review of symptoms Ears/Nose/Throat: negative Respiratory: negative symptoms (no cough, hemoptysis, SOB, ALVAREZ, PND, wheezing) Cardiovascular: negative symptoms (No CP/Pressure/Tightness, palpitations, orthopnea, PND, SOB, ALVAREZ, edema, CM or vision change) Gastrointestinal: negative symptoms (no abdominal pain, anorexia, n/v, indigestion, constipation, or diarrhea) Genitourinary: no urinary symptoms Musculoskeletal: back pain, bilateral ankle pain Neurologic: negative symptoms (no syncope, seizures, weakness, gait problems, numbness, burning pain, tremors, or memory loss) Psychiatric: negative (no sleep disturbance, anxiety, memory loss, disorientation, inattention, feelings of depression) Hematologic/Lymphatic/Immunologic: negative (no anemia, bleeding, bruising) Endocrine: negative review of symptoms PHYSICAL EXAMINATION: BP 114/64 Pulse 91 Temp 97.6 F (36.4 C) (Temporal) Resp 16 Ht 5' 4 (1.626 m) Wt 249 lb (112.9 kg) LMP 01/11/2023 Comment: on and off x 8 month BMI 42.74 kg/m General appearance: alert, pleasant, no distress, cooperative, oriented to time, place and person Skin: Skin color, texture, turgor normal. No rashes or lesions. Head: Normocephalic. No masses, lesions, tenderness or abnormalities Eyes: conjunctivae not injected /corneas clear. PERRL, EOM's intact. Neck: Trachea midline. No bilateral thyromegaly. No palpable nodule in the right lobe, 3cm nodule palpable in the left lobe starting to extend retrosternally. No cervical or supraclavicular lymphadenopathy. Back: Back symmetric, no curvature. ROM normal. Extremities: Extremities normal. No deformities, edema, or skin discoloration Musculoskeletal: Spine ROM normal. Muscular strength intact. Neuro: Gait normal. Sensation grossly intact. No motor deficits Assessment: Bilateral nodular thyroid disease The left 3.1cm nodule meets criteria for biopsy Plan: Fine needle aspiration biopsy of left 3.1cm nodule Disposition per Dr. Kincaid, see note documented in this encounter [facility] 01-28-2023 History of Present illness Narrative Chief complaint: Thyroid nodules. History of present illness: This is a 22-year-old white female referred to me by Adore Moody MD for my advice and opinion regarding multiple thyroid nodules. The patient was noted to have an enlarged thyroid gland on routine physical examination on August 06, 2022. This was followed with an ultrasound examination of her neck on October 06, 2022. In the left lobe of the thyroid gland she had a 3.1 cm solid hyperechoic nodule. In the right lobe of the thyroid gland she had a 1.1 cm and a 1.4 cm solid hypoechoic nodule. She had a serum TSH level on June 23, 2022 which was 1.654. The patient denies compressive symptoms. She has no prior history of head or neck irradiation. Her mother has hypothyroidism. There is no family medical history of thyroid cancer or other endocrinopathies. Past medical history: She has polycystic ovary syndrome and a history of cervical dysplasia. Past surgical history: None. Family medical history: Her father is alive with hypertension. Her mother is alive with hypothyroidism. She has 1 brother and 2 sisters who are healthy. Social history: She vapes daily for the past 5 years. She has 10 drinks per month. She uses marijuana daily. She works at [employer]. Review of Systems Constitutional: No fever, chills, weight loss, loss of appetite HEENT: No recent change in visual acuity, hearing loss, problems with the nose mouth and throat Cardiovascular: No chest pain, palpitations, hypertension, hypercholesterolemia Respiratory: No cough, wheezing, shortness of breath Gastrointestinal: No abdominal pain, blood in the bowel movements, change in bowel habit Genitourinary: No dysuria, hematuria, history of kidney stones Hematologic: No anemia, bleeding problems Endocrine: She has polycystic ovary syndrome she has cervical dysplasia. No diabetes mellitus Neurologic: No headache, dizziness, lightheadedness, seizures, stroke Psychiatric: No depression or anxiety Skin: No eczema, psoriasis, skin cancer Vascular: No history of deep vein thrombosis or pulmonary embolus Musculoskeletal: She complains of back pain. She also has bilateral ankle pain. On examination this is a pleasant white female with a body mass index of 42.74 who is in no apparent distress. HEENT: Head atraumatic normocephalic. Pupils equal round reactive to light accommodation. Extraocular movements were intact. Neck: She had a 3 cm nodule palpable in the inferior pole of the left lobe of the thyroid gland. She had no discrete nodule palpable in the right lobe of the thyroid gland. Her trachea was midline. She had no cervical or supraclavicular lymphadenopathy. Lungs: Clear. Heart: Regular rate and rhythm normal S1-S2. No murmur gallop or thrill. Abdomen: Nondistended and soft. She had no palpable masses, tenderness organomegaly. Extremity exam: No edema, tremor, tenderness or skin rash. Neurologic exam: Cranial nerves 3-12 intact. Motor and sensory exam were grossly intact. My impression is the patient has a 3 cm palpable nodule in the left lobe of the thyroid gland and 2 nonpalpable nodules in the right lobe of the thyroid gland. She is biochemically euthyroid. Plan: I proceeded with a fine-needle aspiration biopsy of the palpable nodule in the left lobe of the thyroid gland. Four separate fine-needle aspiration biopsies were performed using 22 gauge 1-1/2 inch needles. All the specimens were smeared on the glass slides. Half the slides were fixed with an alcohol fixative and half the slides were allowed to air dry. All the slides were submitted to cytopathology for microscopic examination. I indicated to the patient that if the fine-needle aspiration biopsy is benign, I will recommend active surveillance. This will consist of a yearly physical examination, a yearly screening serum TSH level and periodic ultrasound examination. She can follow-up with Isamar Lloyd CNP in 1 year. If the fine-needle aspiration biopsy is suspicious or malignant I will recommend proceeding with a definitive total thyroidectomy. Addendum: Fine-needle aspiration biopsy of the nodule in the left lobe of the thyroid gland revealed atypia of undetermined significance. I will arrange for the patient to see me in routine follow-up in 3 months. At that time I will repeat the biopsy and send a specimen for reflux Afirma molecular testing. General Surgery New Patient Visit Chief Complaint: thyroid nodules History of Present Illness: A 22 year old White female is referred by Adore Morales MD to the Surgery Clinic for evaluation of thyroid nodules. She was seen for a routine office visit with her primary care provider on 08/06/22 and was noted to have an enlarged thyroid on physical exam. She followed up with a thyroid ultrasound on 10/06/22 demonstrating a right 1.1cm solid hypoechoic nodule, a right 1.4cm solid hypoechoic nodule, and a left 3.1cm solid hypoechoic nodule. Her most recent TSH from 06/23/22 was 1.654. She denies compressive symptoms. She has no history of head or neck irradiation. Her mother has hypothyroidism. She has no family history of thyroid cancer or other endocrinopathies. US Thyroid 10/06/22 FINDINGS: Background parenchyma: The thyroid gland is normal in size. Heterogeneous parenchymal echogenicity. Right Thyroid: 3.1 x 1.2 x 1.4 cm. Nodule 1: Size: 1.1 x 0.6 x 0.9 cm Location: Right mid Composition: solid or almost completely solid: 2 points Echogenicity: hypoechoic: 2 points Shape: wider than tall: 0 points Margins: smooth: 0 points Echogenic foci: none: 0 points ACR Total Points: 4; ACR TI-RADS risk category: TR4 nodule. Recommendations: No FNA. Recommend annual follow-up. Nodule 2: Size: 1.4 x 0.9 x 1.1 cm Location: Right inferior Composition: solid or almost completely solid: 2 points Echogenicity: hypoechoic: 2 points Shape: wider than tall: 0 points Margins: smooth: 0 points Echogenic foci: none: 0 points ACR Total Points: 4; ACR TI-RADS risk category: TR4 nodule. Recommendations: No FNA. Recommend annual follow-up. Isthmus AP Diameter: 3 mm. No discrete nodule. Left Thyroid: 4.7 x 2.0 x 2.0 cm. Nodule 3: Size: 3.1 x 1.6 x 2.4 cm Location: Left mid Composition: solid or almost completely solid: 2 points Echogenicity: hyperechoic: 1 point Shape: wider than tall: 0 points Margins: smooth: 0 points Echogenic foci: none: 0 points ACR Total Points: 3; ACR TI-RADS risk category: TR3 nodule. Recommendations: Recommend FNA. No abnormal lymph nodes are demonstrated. IMPRESSION: 1. Nonenlarged thyroid gland. 2. Recommend FNA of left thyroid nodule (nodule #3, 3.1 cm, TR 3). 3. Recommend annual follow-up of right thyroid nodules (nodule #1, #2). No past medical history on file. No past surgical history on file. Social History Socioeconomic History Marital status: Single Highest education level: Some college, no degree Tobacco Use Smoking status: Every Day Types: E-cigarette Smokeless tobacco: Never Tobacco comments: [facility] Social Determinants of Health Financial Resource Strain: Low Risk (08/06/2022) Overall Financial Resource Strain (CARDIA) Difficulty of Paying Living Expenses: Not very hard Food Insecurity: Food Insecurity Present (08/06/2022) Hunger Vital Sign Worried About Running Out of Food in the Last Year: Sometimes true Ran Out of Food in the Last Year: Never true Transportation Needs: Unmet Transportation Needs (08/06/2022) PRAPARE - Transportation Lack of Transportation (Medical): Yes Lack of Transportation (Non-Medical): Yes Physical Activity: Inactive (08/06/2022) Exercise Vital Sign Days of Exercise per Week: 0 days Minutes of Exercise per Session: 0 min Stress: No Stress Concern Present (08/06/2022) [place] [facility] - Occupational Stress Questionnaire Feeling of Stress : Only a little Social Connections: Socially Isolated (08/06/2022) Social Connection and Isolation Panel [NHANES] Frequency of Communication with Friends and Family: Once a week Frequency of Social Gatherings with Friends and Family: More than three times a week Attends Orthodoxy Services: Never Active Member of Clubs or Organizations: No Attends Club or Organization Meetings: Never Marital Status: Never Intimate Partner Violence: Not At Risk (08/06/2022) Humiliation, Afraid, Rape, and Kick questionnaire Fear of Current or Ex-Partner: No Emotionally Abused: No Physically Abused: No Sexually Abused: No Review Of Systems Skin: negative Eyes: negative review of symptoms Ears/Nose/Throat: negative Respiratory: negative symptoms (no cough, hemoptysis, SOB, ALVAREZ, PND, wheezing) Cardiovascular: negative symptoms (No CP/Pressure/Tightness, palpitations, orthopnea, PND, SOB, ALVAREZ, edema, CM or vision change) Gastrointestinal: negative symptoms (no abdominal pain, anorexia, n/v, indigestion, constipation, or diarrhea) Genitourinary: no urinary symptoms Musculoskeletal: back pain, bilateral ankle pain Neurologic: negative symptoms (no syncope, seizures, weakness, gait problems, numbness, burning pain, tremors, or memory loss) Psychiatric: negative (no sleep disturbance, anxiety, memory loss, disorientation, inattention, feelings of depression) Hematologic/Lymphatic/Immunologic: negative (no anemia, bleeding, bruising) Endocrine: negative review of symptoms PHYSICAL EXAMINATION: BP 114/64 Pulse 91 Temp 97.6 F (36.4 C) (Temporal) Resp 16 Ht 5' 4 (1.626 m) Wt 249 lb (112.9 kg) LMP 01/11/2023 Comment: on and off x 8 month BMI 42.74 kg/m General appearance: alert, pleasant, no distress, cooperative, oriented to time, place and person Skin: Skin color, texture, turgor normal. No rashes or lesions. Head: Normocephalic. No masses, lesions, tenderness or abnormalities Eyes: conjunctivae not injected /corneas clear. PERRL, EOM's intact. Neck: Trachea midline. No bilateral thyromegaly. No palpable nodule in the right lobe, 3cm nodule palpable in the left lobe starting to extend retrosternally. No cervical or supraclavicular lymphadenopathy. Back: Back symmetric, no curvature. ROM normal. Extremities: Extremities normal. No deformities, edema, or skin discoloration Musculoskeletal: Spine ROM normal. Muscular strength intact. Neuro: Gait normal. Sensation grossly intact. No motor deficits Assessment: Bilateral nodular thyroid disease The left 3.1cm nodule meets criteria for biopsy Plan: Fine needle aspiration biopsy of left 3.1cm nodule Disposition per Dr. Kincaid, see note documented in this encounter [facility] 01-28-2023 History of Present illness Narrative Chief complaint: Thyroid nodules. History of present illness: This is a 22-year-old white female referred to me by Adore Moody MD for my advice and opinion regarding multiple thyroid nodules. The patient was noted to have an enlarged thyroid gland on routine physical examination on August 06, 2022. This was followed with an ultrasound examination of her neck on October 06, 2022. In the left lobe of the thyroid gland she had a 3.1 cm solid hyperechoic nodule. In the right lobe of the thyroid gland she had a 1.1 cm and a 1.4 cm solid hypoechoic nodule. She had a serum TSH level on June 23, 2022 which was 1.654. The patient denies compressive symptoms. She has no prior history of head or neck irradiation. Her mother has hypothyroidism. There is no family medical history of thyroid cancer or other endocrinopathies. Past medical history: She has polycystic ovary syndrome and a history of cervical dysplasia. Past surgical history: None. Family medical history: Her father is alive with hypertension. Her mother is alive with hypothyroidism. She has 1 brother and 2 sisters who are healthy. Social history: She vapes daily for the past 5 years. She has 10 drinks per month. She uses marijuana daily. She works at [employer]. Review of Systems Constitutional: No fever, chills, weight loss, loss of appetite HEENT: No recent change in visual acuity, hearing loss, problems with the nose mouth and throat Cardiovascular: No chest pain, palpitations, hypertension, hypercholesterolemia Respiratory: No cough, wheezing, shortness of breath Gastrointestinal: No abdominal pain, blood in the bowel movements, change in bowel habit Genitourinary: No dysuria, hematuria, history of kidney stones Hematologic: No anemia, bleeding problems Endocrine: She has polycystic ovary syndrome she has cervical dysplasia. No diabetes mellitus Neurologic: No headache, dizziness, lightheadedness, seizures, stroke Psychiatric: No depression or anxiety Skin: No eczema, psoriasis, skin cancer Vascular: No history of deep vein thrombosis or pulmonary embolus Musculoskeletal: She complains of back pain. She also has bilateral ankle pain. On examination this is a pleasant white female with a body mass index of 42.74 who is in no apparent distress. HEENT: Head atraumatic normocephalic. Pupils equal round reactive to light accommodation. Extraocular movements were intact. Neck: She had a 3 cm nodule palpable in the inferior pole of the left lobe of the thyroid gland. She had no discrete nodule palpable in the right lobe of the thyroid gland. Her trachea was midline. She had no cervical or supraclavicular lymphadenopathy. Lungs: Clear. Heart: Regular rate and rhythm normal S1-S2. No murmur gallop or thrill. Abdomen: Nondistended and soft. She had no palpable masses, tenderness organomegaly. Extremity exam: No edema, tremor, tenderness or skin rash. Neurologic exam: Cranial nerves 3-12 intact. Motor and sensory exam were grossly intact. My impression is the patient has a 3 cm palpable nodule in the left lobe of the thyroid gland and 2 nonpalpable nodules in the right lobe of the thyroid gland. She is biochemically euthyroid. Plan: I proceeded with a fine-needle aspiration biopsy of the palpable nodule in the left lobe of the thyroid gland. Four separate fine-needle aspiration biopsies were performed using 22 gauge 1-1/2 inch needles. All the specimens were smeared on the glass slides. Half the slides were fixed with an alcohol fixative and half the slides were allowed to air dry. All the slides were submitted to cytopathology for microscopic examination. I indicated to the patient that if the fine-needle aspiration biopsy is benign, I will recommend active surveillance. This will consist of a yearly physical examination, a yearly screening serum TSH level and periodic ultrasound examination. She can follow-up with Isamar Lloyd CNP in 1 year. If the fine-needle aspiration biopsy is suspicious or malignant I will recommend proceeding with a definitive total thyroidectomy. Addendum: Fine-needle aspiration biopsy of the nodule in the left lobe of the thyroid gland revealed atypia of undetermined significance. I will arrange for the patient to see me in routine follow-up in 3 months. At that time I will repeat the biopsy and send a specimen for reflux Afirma molecular testing. General Surgery New Patient Visit Chief Complaint: thyroid nodules History of Present Illness: A 22 year old White female is referred by Adore Morales MD to the Surgery Clinic for evaluation of thyroid nodules. She was seen for a routine office visit with her primary care provider on 08/06/22 and was noted to have an enlarged thyroid on physical exam. She followed up with a thyroid ultrasound on 10/06/22 demonstrating a right 1.1cm solid hypoechoic nodule, a right 1.4cm solid hypoechoic nodule, and a left 3.1cm solid hypoechoic nodule. Her most recent TSH from 06/23/22 was 1.654. She denies compressive symptoms. She has no history of head or neck irradiation. Her mother has hypothyroidism. She has no family history of thyroid cancer or other endocrinopathies. US Thyroid 10/06/22 FINDINGS: Background parenchyma: The thyroid gland is normal in size. Heterogeneous parenchymal echogenicity. Right Thyroid: 3.1 x 1.2 x 1.4 cm. Nodule 1: Size: 1.1 x 0.6 x 0.9 cm Location: Right mid Composition: solid or almost completely solid: 2 points Echogenicity: hypoechoic: 2 points Shape: wider than tall: 0 points Margins: smooth: 0 points Echogenic foci: none: 0 points ACR Total Points: 4; ACR TI-RADS risk category: TR4 nodule. Recommendations: No FNA. Recommend annual follow-up. Nodule 2: Size: 1.4 x 0.9 x 1.1 cm Location: Right inferior Composition: solid or almost completely solid: 2 points Echogenicity: hypoechoic: 2 points Shape: wider than tall: 0 points Margins: smooth: 0 points Echogenic foci: none: 0 points ACR Total Points: 4; ACR TI-RADS risk category: TR4 nodule. Recommendations: No FNA. Recommend annual follow-up. Isthmus AP Diameter: 3 mm. No discrete nodule. Left Thyroid: 4.7 x 2.0 x 2.0 cm. Nodule 3: Size: 3.1 x 1.6 x 2.4 cm Location: Left mid Composition: solid or almost completely solid: 2 points Echogenicity: hyperechoic: 1 point Shape: wider than tall: 0 points Margins: smooth: 0 points Echogenic foci: none: 0 points ACR Total Points: 3; ACR TI-RADS risk category: TR3 nodule. Recommendations: Recommend FNA. No abnormal lymph nodes are demonstrated. IMPRESSION: 1. Nonenlarged thyroid gland. 2. Recommend FNA of left thyroid nodule (nodule #3, 3.1 cm, TR 3). 3. Recommend annual follow-up of right thyroid nodules (nodule #1, #2). No past medical history on file. No past surgical history on file. Social History Socioeconomic History Marital status: Single Highest education level: Some college, no degree Tobacco Use Smoking status: Every Day Types: E-cigarette Smokeless tobacco: Never Tobacco comments: THC Social Determinants of Health Financial Resource Strain: Low Risk (08/06/2022) Overall Financial Resource Strain (CARDIA) Difficulty of Paying Living Expenses: Not very hard Food Insecurity: Food Insecurity Present (08/06/2022) Hunger Vital Sign Worried About Running Out of Food in the Last Year: Sometimes true Ran Out of Food in the Last Year: Never true Transportation Needs: Unmet Transportation Needs (08/06/2022) PRAPARE - Transportation Lack of Transportation (Medical): Yes Lack of Transportation (Non-Medical): Yes Physical Activity: Inactive (08/06/2022) Exercise Vital Sign Days of Exercise per Week: 0 days Minutes of Exercise per Session: 0 min Stress: No Stress Concern Present (08/06/2022) [place] [facility] [employer] - Occupational Stress Questionnaire Feeling of Stress : Only a little Social Connections: Socially Isolated (08/06/2022) Social Connection and Isolation Panel [NHANES] Frequency of Communication with Friends and Family: Once a week Frequency of Social Gatherings with Friends and Family: More than three times a week Attends Orthodoxy Services: Never Active Member of Clubs or Organizations: No Attends Club or Organization Meetings: Never Marital Status: Never Intimate Partner Violence: Not At Risk (08/06/2022) Humiliation, Afraid, Rape, and Kick questionnaire Fear of Current or Ex-Partner: No Emotionally Abused: No Physically Abused: No Sexually Abused: No Review Of Systems Skin: negative Eyes: negative review of symptoms Ears/Nose/Throat: negative Respiratory: negative symptoms (no cough, hemoptysis, SOB, ALVAREZ, PND, wheezing) Cardiovascular: negative symptoms (No CP/Pressure/Tightness, palpitations, orthopnea, PND, SOB, ALVAREZ, edema, CM or vision change) Gastrointestinal: negative symptoms (no abdominal pain, anorexia, n/v, indigestion, constipation, or diarrhea) Genitourinary: no urinary symptoms Musculoskeletal: back pain, bilateral ankle pain Neurologic: negative symptoms (no syncope, seizures, weakness, gait problems, numbness, burning pain, tremors, or memory loss) Psychiatric: negative (no sleep disturbance, anxiety, memory loss, disorientation, inattention, feelings of depression) Hematologic/Lymphatic/Immunologic: negative (no anemia, bleeding, bruising) Endocrine: negative review of symptoms PHYSICAL EXAMINATION: BP 114/64 Pulse 91 Temp 97.6 F (36.4 C) (Temporal) Resp 16 Ht 5' 4 (1.626 m) Wt 249 lb (112.9 kg) LMP 01/11/2023 Comment: on and off x 8 month BMI 42.74 kg/m General appearance: alert, pleasant, no distress, cooperative, oriented to time, place and person Skin: Skin color, texture, turgor normal. No rashes or lesions. Head: Normocephalic. No masses, lesions, tenderness or abnormalities Eyes: conjunctivae not injected /corneas clear. PERRL, EOM's intact. Neck: Trachea midline. No bilateral thyromegaly. No palpable nodule in the right lobe, 3cm nodule palpable in the left lobe starting to extend retrosternally. No cervical or supraclavicular lymphadenopathy. Back: Back symmetric, no curvature. ROM normal. Extremities: Extremities normal. No deformities, edema, or skin discoloration Musculoskeletal: Spine ROM normal. Muscular strength intact. Neuro: Gait normal. Sensation grossly intact. No motor deficits Assessment: Bilateral nodular thyroid disease The left 3.1cm nodule meets criteria for biopsy Plan: Fine needle aspiration biopsy of left 3.1cm nodule Disposition per Dr. Kincaid, see note documented in this encounter [facility] Work Phone: 11-05-2022 Instructions Adore Morales MD - 11/05/2022 9:04 AM EDT Labs due Labs ordered to evaluate joint pain Rx for toenail fungus and labs in 4-6w Future Order Information Expected Expires 09/23/2022 (Approximate) Please make the appointment(s) below, or ask if they can be made before you leave the clinic. Please call the [facility] at [phone] to schedule an appointment if one was not made for you. The following attachments cannot be sent through Care Everywhere.Fungal Nail Infections (Polish)documented in this encounter [facility] 11-05-2022 History of Present illness Narrative Images from the original note were not included. Family Medicine Adore Morales MD 11/11/22 [facility] Medicine [address] [place] [id number] TELEHEATH VIRTUAL VISIT / see full documentation at end of note Chief Complaint Patient presents with Discuss results test/procedures ~~~~~~~~~~~~~~~~~~~~~~~~~~~~~~~~~~~ ~~~~~~~~ Assessment and Plan and PATIENT INSTRUCTIONS FROM AVS: Visit date: 11/05/22 No follow-ups on file. Patient Instructions Labs due Labs ordered to evaluate joint pain Rx for toenail fungus and labs in 4-6w Future Order Information Expected Expires 09/23/2022 (Approximate) Please make the appointment(s) below, or ask if they can be made before you leave the clinic. Please call the [facility] at [phone] to schedule an appointment if one was not made for you. 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 On supplements since Toenail fungus : worsening Causing pain Rx wants Photos below Ankles hurt Shaheed first in am Or if lots of stress Rash no Muscle pain LFT's (last 3 years, up to 5 values) T Prot Albumin D Bili T Bili Alk Phos ALT AST 06/23/22 1425 7.3 4.4 0.10 0.5 80 27 19 Cyst / bump behind knee Terbinafine (systemic): Drug information Dosing: Adult Outline Brand Names: Heaven Pharmacologic Category Dosing: Adult Dosing: Kidney Impairment: Adult Dosing: Hepatic Impairment: Adult Dosing: Older Adult Dosing: Pediatric Dosing: Kidney Impairment: Pediatric Dosing: Hepatic Impairment: Pediatric Adverse Reactions (Significant): Considerations Adverse Reactions Contraindications Warnings/Precautions Dosage Forms: US Generic Equivalent Available: US Pricing: US Dosage Forms: Heaven Administration: Adult Administration: Pediatric Medication Guide and/or Vaccine Information Statement (VIS) Use: Labeled Indications Use: Off-Label: Adult Medication Safety Issues Metabolism/Transport Effects Drug Interactions Considerations Considerations Monitoring Parameters Mechanism of Action Pharmacokinetics (Adult Data Unless Noted) Pharmacokinetics: Additional Considerations (Adult Data Unless Noted) Brand Names: International REFERENCES GRAPHICS View All Tables - [employer] clinical abbreviations - Country abbreviations RELATED TOPICS Terbinafine (systemic): Patient drug information Terbinafine (systemic): Pediatric drug information Terbinafine (systemic): Drug information Access [employer]ality Online for additional drug information, tools, and databases. Dosing: Adult Onychomycosis Onychomycosis: Continuous dosing: Oral: 250 mg once daily for 6 weeks (fingernail) or 12 weeks (toenail). Pulsed dosing (alternative dosing method) (off label): Note: Optimal dosing regimen not established. Pulsed dosing is less effective than continuous dosing (Ref). Oral: 250 mg once daily for 4 weeks, off for 4 weeks, then resume with 250 mg once daily for 4 weeks (Ref) or 500 mg/day in 1 or 2 divided doses for 1 week repeated every 4 weeks for 3 months (Ref). Past Covid illness? : Feb 2022 covid VACCINATED not fully boosted Time spent on phone or video: 14 minutes Plus pre and post charting : total time: 21 minutes Last visit: Office Visit on 08/06/2022 in [facility] with tx for Well woman exam with routine gynecological exam; DUB (dysfunctional uterine bleeding); Vitamin B 12 deficiency; Vitamin D deficiency; History of Papanicolaou smear of cervix; Screening for cervical cancer; History of abnormal cervical Pap smear; Thyromegaly. Most recent visit with ADORE MORALES was on 08/06/2022 Relevant past and current data reviewed/ see chart and relevant data copied below Epic charting revd/ Care Team updated Patient Care Team: Adore Morales MD as PCP - General (Family Medicine) Current Outpatient Medications on File Prior to Visit Medication Sig Dispense Refill vitamin D, Cholecalciferol, 25 MCG (1000 UT) TABS tablet Take 3 Tablets by mouth daily. 270 Tablet 4 Cyanocobalamin (B-12) 2500 MCG TABS Take 1 Tablet by mouth daily. 90 Tablet 4 No current facility-administered medications on file prior to visit. Reviewed PMH / FH/ SH Significant for: see HPI No past medical history on file. No past surgical history on file. No family history on file. Immunization History Administered Date(s) Administered HPV, 9-valent (Gardasil 9) (ZFS=842) 06/23/2022, 08/06/2022 Meningococcal conjugate (MCV4,Men-ACWY), Menactra (MCV4P) (NEQ=738) 04/28/2010, 06/16/2015 Pfizer Monovalent (12+ yrs) SARS-COV-2 (COVID-19) vaccine, mRNA, spike protein, LNP, pres. free, 30 mcg/0.3mL dose (KUP=741) 08/01/2020, 08/22/2020 Pneumococcal conjugate 20 valent (PCV20), polysaccharide SBL924 conjugate, adjuvant, PF (GVK=691) 08/06/2022 Tdap (HOA=074) 04/28/2010, 08/01/2020 Walter was seen today for discuss results test/procedures. Diagnoses and all orders for this visit: Ankle pain, unspecified chronicity, unspecified laterality - RHEUMATOID FACTOR; Future - CYCLIC CITRULLINATED PEPTIDE,*; Future - URIC ACID; Future - COMPLETE BLOOD COUNT W/DIFF; Future - ERYTHROCYTE SEDIMENTATION RATE; Future - AUTOIMMUNE MULTIPLEX PANEL; Future - LYME ANTIBODIES, IGG, IGM; Future - STREPTOLYSIN O ANTIBODY; Future Onychomycosis - HEPATIC FUNCTION PANEL; Future Vitamin B 12 deficiency Obesity, unspecified classification, unspecified obesity type, unspecified whether serious comorbidity present - AMBULATORY NUTRITION THERAPY CONSULT; Future Vitamin D deficiency Multiple thyroid nodules Arthralgia, unspecified joint - RHEUMATOID FACTOR; Future - CYCLIC CITRULLINATED PEPTIDE,*; Future - URIC ACID; Future - COMPLETE BLOOD COUNT W/DIFF; Future - ERYTHROCYTE SEDIMENTATION RATE; Future - AUTOIMMUNE MULTIPLEX PANEL; Future - LYME ANTIBODIES, IGG, IGM; Future - STREPTOLYSIN O ANTIBODY; Future Medication management - HEPATIC FUNCTION PANEL; Future Other orders - terbinafine (LamISIL) 250 MG tablet; Take 1 Tablet by mouth daily. PATIENT INSTRUCTIONS FROM AVS Noted at TOP of this note ROS in addition to HPI: NA Physical exam There were no vitals filed for this visit. GENERAL APPEARANCE: alert and oriented, NAD. EYES: PERRL, EOMI, no scleral icterus, conjunctiva clear. NECK/THYROID: visually WNL. RESPIRATORY: calm, unlabored SKIN: visually Normal Physical Exam Adore Morales MD 11/11/22 . * * . ... . . * * . ... . . * * . ... . . * * . ... . . * * . ... . . * * . ... . * * . Documentation: Mode: Video Consent: This visit was initiated by the patient. Audio and visual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 Nontoxic multinodular goiter Current moderate episode of major depressive disorder without prior episode (HCC) [facility]* Diagnosis Postoperative follow-up- Primary Follow-up examination, following unspecified surgery Hypothyroidism, postsurgical Postsurgical hypothyroidism Change in voice Other voice and resonance disorders [facility] Diagnosis Postoperative follow-up- Primary Follow-up examination, following unspecified surgery Hypothyroidism, postsurgical Postsurgical hypothyroidism Change in voice Other voice and resonance disorders [facility]* Diagnosis Hypothyroidism, postsurgical Postsurgical hypothyroidism Postoperative follow-up Follow-up examination, following unspecified surgery [facility]* Diagnosis Thyroid nodule- Primary Nontoxic uninodular goiter documented in this encounter [facility] Work Phone: Evaluation note* Diagnosis Thyroid nodule- Primary Nontoxic uninodular goiter documented in this encounter [facility] [employer] Work Phone: Evaluation note* Diagnosis Multiple thyroid nodules- Primary Nontoxic multinodular goiter Pre-op evaluation- Primary Preoperative examination, unspecified Multiple thyroid nodules Nontoxic multinodular goiter documented in this encounter [facility] [employer] Work Phone: Evaluation note* Diagnosis Thyroid nodule- Primary Nontoxic uninodular goiter documented in this encounter [facility] [employer] Work Phone: Evaluation note* Diagnosis Multiple thyroid nodules- Primary Nontoxic multinodular goiter Obesity, unspecified classification, unspecified obesity type, unspecified whether serious comorbidity present- Primary Vitamin D deficiency Unspecified vitamin D deficiency Vitamin B 12 deficiency Other B-complex deficiencies Multiple thyroid nodules Nontoxic multinodular goiter Arthralgia, unspecified joint Medication management DUB (dysfunctional uterine bleeding) Other disorder of menstruation and other abnormal bleeding from female genital tract Routine adult health maintenance Routine general medical examination at a health care facility Fatigue, unspecified type Multiple thyroid nodules Nontoxic multinodular goiter documented in this encounter [facility] [employer] Work Phone: Evaluation note* Diagnosis Thyroid nodule- Primary Nontoxic uninodular goiter Multiple thyroid nodules Nontoxic multinodular goiter documented in this encounter [facility] [employer] Work Phone: Evaluation note* Diagnosis Multiple thyroid nodules- Primary Nontoxic multinodular goiter documented in this encounter [facility] [employer] Work Phone: Evaluation note* Diagnosis with uncertain dates, antepartum- Primary state, incidental Screen for STD (sexually transmitted disease) Screening examination for venereal disease 9 weeks gestation of state, incidental Hypothyroidism, unspecified type Supervision of high risk , antepartum BMI 40.0-44.9, adult (HCC) Body Mass Index 40.0-44.9, adult [facility] Supervision of high risk , antepartum- Primary BMI 40.0-44.9, adult (HCC) Body Mass Index 40.0-44.9, adult [facility] Diagnosis Encounter for screening for malformation using ultrasound- Primary 12 weeks gestation of state, incidental documented in this encounter [facility] note* Diagnosis BMI 40.0-44.9, adult (HCC)- Primary Body Mass Index 40.0-44.9, adult Supervision of high risk in first trimester Unspecified high-risk Severe obesity due to excess calories affecting , antepartum (HCC) Postablative hypothyroidism Other postablative hypothyroidism * Assessment & Plan Note - Cleo oPrtillo MD - 05/22/2024 10:58 AM EDT Associated Problem(s): Severe obesity due to excess calories affecting , antepartum (HCC) US ordered 16 and 20 weeks Orders: OBSTETRIC ULTRASOUND WHI; Future * Assessment & Plan Note - Cleo Portillo MD - 05/22/2024 10:58 AM EDT Associated Problem(s): Hypothyroidism TSH has decreased from 8.6 to 5 since March. Increase synthroid to 200 mcg daily and recheck in approx 6 weeks * Assessment & Plan Note - Cleo Portillo MD - 05/22/2024 10:58 AM EDT Associated Problem(s): BMI 40.0-44.9, adult ([facility]) d/w her wt gain goals Orders: OBSTETRIC ULTRASOUND WHI; Future * Assessment & Plan Note - Cleo Portillo MD - 05/22/2024 10:58 AM EDT Associated Problem(s): Supervision of high risk in first trimester had flu vaccine, declines covie Orders: OBSTETRIC ULTRASOUND WHI; Future [facility] Diagnosis BMI 40.0-44.9, adult ([facility])- Primary Body Mass Index 40.0-44.9, adult Supervision of high risk in first trimester ([facility]) Unspecified high-risk Severe obesity due to excess calories affecting , antepartum ([facility]) Postablative hypothyroidism Other postablative hypothyroidism 16 weeks gestation of ([facility])- Primary state, incidental Supervision of high risk in first trimester ([facility]) Unspecified high-risk BMI 40.0-44.9, adult ([facility]) Body Mass Index 40.0-44.9, adult Positive GBS test [facility] Diagnosis Rh negative state in antepartum period ([facility])- Primary Rhesus isoimmunization affecting management of mother, antepartum condition BMI 40.0-44.9, adult ([facility])- Primary Body Mass Index 40.0-44.9, adult Supervision of high risk in first trimester ([facility]) Unspecified high-risk Severe obesity due to excess calories affecting , antepartum ([facility]) Postablative hypothyroidism Other postablative hypothyroidism [facility]* Diagnosis Vitamin D deficiency- Primary Unspecified vitamin D deficiency Vitamin B 12 deficiency Other B-complex deficiencies Multiple thyroid nodules Nontoxic multinodular goiter Medication management Amenorrhea- Primary Absence of menstruation Post-surgical hypothyroidism Postsurgical hypothyroidism Less than 8 weeks gestation of ([facility]) Acquired hypothyroidism Unspecified hypothyroidism [facility] Diagnosis BMI 40.0-44.9, adult ([facility])- Primary Body Mass Index 40.0-44.9, adult Supervision of high risk in first trimester ([facility]) Unspecified high-risk Severe obesity due to excess calories affecting , antepartum ([facility]) Postablative hypothyroidism Other postablative hypothyroidism BMI 40.0-44.9, adult ([facility]) Body Mass Index 40.0-44.9, adult Supervision of high risk in first trimester ([facility]) Unspecified high-risk Severe obesity due to excess calories affecting , antepartum ([facility]) [facility] Diagnosis Vitamin D deficiency- Primary Unspecified vitamin D deficiency Vitamin B 12 deficiency Other B-complex deficiencies Multiple thyroid nodules Nontoxic multinodular goiter Medication management Lightheaded- Primary Dizziness and giddiness Hypothyroidism, unspecified type Vitamin D deficiency Unspecified vitamin D deficiency Vitamin B 12 deficiency Other B-complex deficiencies Acquired hypothyroidism Unspecified hypothyroidism Current moderate episode of major depressive disorder without prior episode ([facility]) [facility] BMI 40.0-44.9, adult ([facility])- Primary Body Mass Index 40.0-44.9, adult Supervision of high risk in first trimester ([facility]) Unspecified high-risk Severe obesity due to excess calories affecting , antepartum ([facility]) Postablative hypothyroidism Other postablative hypothyroidism Supervision of high risk in second trimester ([facility])- Primary Unspecified high-risk 20 weeks gestation of ([facility]) state, incidental BMI 40.0-44.9, adult ([facility]) Body Mass Index 40.0-44.9, adult Obesity in ([facility]) Obesity complicating , childbirth, or the puerperium, unspecified as to episode of care or not applicable Postablative hypothyroidism Other postablative hypothyroidism Rh negative state in antepartum period ([facility]) Rhesus isoimmunization affecting management of mother, antepartum condition GBS bacteriuria Pyelectasis of fetus on ultrasound ([facility]) Abnormal findings on screening Screening for diabetes mellitus- Primary Encounter for supervision of other normal in second trimester ([facility]) Hypothyroidism, unspecified type Depression during in second trimester ([facility]) documented in this encounter [facility] note* Diagnosis BMI 40.0-44.9, adult ([facility])- Primary Body Mass Index 40.0-44.9, adult Supervision of high risk in first trimester ([facility]) Unspecified high-risk Severe obesity due to excess calories affecting , antepartum ([facility]) Postablative hypothyroidism Other postablative hypothyroidism Supervision of high risk in second trimester ([facility])- Primary Unspecified high-risk 20 weeks gestation of ([facility]) state, incidental BMI 40.0-44.9, adult ([facility]) Body Mass Index 40.0-44.9, adult Obesity in ([facility]) Obesity complicating , childbirth, or the puerperium, unspecified as to episode of care or not applicable Postablative hypothyroidism Other postablative hypothyroidism Rh negative state in antepartum period ([facility]) Rhesus isoimmunization affecting management of mother, antepartum condition GBS bacteriuria Pyelectasis of fetus on ultrasound ([facility]) Abnormal findings on screening Encounter for supervision of other normal in second trimester ([facility])- Primary 26 weeks gestation of ([facility]) state, incidental documented in this encounter [facility] note* Diagnosis BMI 40.0-44.9, adult ([facility])- Primary Body Mass Index 40.0-44.9, adult Supervision of high risk in first trimester ([facility]) Unspecified high-risk Severe obesity due to excess calories affecting , antepartum ([facility]) Postablative hypothyroidism Other postablative hypothyroidism Supervision of high risk in second trimester ([facility])- Primary Unspecified high-risk 20 weeks gestation of ([facility]) state, incidental BMI 40.0-44.9, adult ([facility]) Body Mass Index 40.0-44.9, adult Obesity in ([facility]) Obesity complicating , childbirth, or the puerperium, unspecified as to episode of care or not applicable Postablative hypothyroidism Other postablative hypothyroidism Rh negative state in antepartum period ([facility]) Rhesus isoimmunization affecting management of mother, antepartum condition GBS bacteriuria Pyelectasis of fetus on ultrasound ([facility]) Abnormal findings on screening Supervision of high risk in third trimester ([facility])- Primary Unspecified high-risk 28 weeks gestation of ([facility]) state, incidental Obesity affecting in third trimester, unspecified obesity type ([facility]) Depression during in third trimester ([facility]) Hypothyroidism, unspecified type Rh negative state in antepartum period ([facility]) Rhesus isoimmunization affecting management of mother, antepartum condition Need for vaccination Need for prophylactic vaccination and inoculation against unspecified single disease documented in this encounter [facility] note* Diagnosis BMI 40.0-44.9, adult ([facility])- Primary Body Mass Index 40.0-44.9, adult Supervision of high risk in first trimester ([facility]) Unspecified high-risk Severe obesity due to excess calories affecting , antepartum ([facility]) Postablative hypothyroidism Other postablative hypothyroidism Supervision of high risk in second trimester ([facility])- Primary Unspecified high-risk 20 weeks gestation of ([facility]) state, incidental BMI 40.0-44.9, adult ([facility]) Body Mass Index 40.0-44.9, adult Obesity in ([facility]) Obesity complicating , childbirth, or the puerperium, unspecified as to episode of care or not applicable Postablative hypothyroidism Other postablative hypothyroidism Rh negative state in antepartum period ([facility]) Rhesus isoimmunization affecting management of mother, antepartum condition GBS bacteriuria Pyelectasis of fetus on ultrasound ([facility]) Abnormal findings on screening Elevated glucose- Primary Other abnormal glucose documented in this encounter [facility] note* Diagnosis BMI 40.0-44.9, adult ([facility])- Primary Body Mass Index 40.0-44.9, adult Supervision of high risk in first trimester ([facility]) Unspecified high-risk Severe obesity due to excess calories affecting , antepartum ([facility]) Postablative hypothyroidism Other postablative hypothyroidism Supervision of high risk in second trimester ([facility])- Primary Unspecified high-risk 20 weeks gestation of ([facility]) state, incidental BMI 40.0-44.9, adult ([facility]) Body Mass Index 40.0-44.9, adult Obesity in ([facility]) Obesity complicating , childbirth, or the puerperium, unspecified as to episode of care or not applicable Postablative hypothyroidism Other postablative hypothyroidism Rh negative state in antepartum period ([facility]) Rhesus isoimmunization affecting management of mother, antepartum condition GBS bacteriuria Pyelectasis of fetus on ultrasound ([facility]) Abnormal findings on screening Supervision of high risk in third trimester ([facility])- Primary Unspecified high-risk 30 weeks gestation of ([facility]) state, incidental Obesity affecting in third trimester, unspecified obesity type ([facility]) Hypothyroidism, unspecified type Depression during in third trimester ([facility]) Postablative hypothyroidism Other postablative hypothyroidism GBS bacteriuria Pyelectasis of fetus on ultrasound ([facility]) Abnormal findings on screening documented in this encounter [facility] note* Diagnosis BMI 40.0-44.9, adult ([facility])- Primary Body Mass Index 40.0-44.9, adult Supervision of high risk in first trimester ([facility]) Unspecified high-risk Severe obesity due to excess calories affecting , antepartum ([facility]) Postablative hypothyroidism Other postablative hypothyroidism Supervision of high risk in second trimester ([facility])- Primary Unspecified high-risk 20 weeks gestation of ([facility]) state, incidental BMI 40.0-44.9, adult ([facility]) Body Mass Index 40.0-44.9, adult Obesity in ([facility]) Obesity complicating , childbirth, or the puerperium, unspecified as to episode of care or not applicable Postablative hypothyroidism Other postablative hypothyroidism Rh negative state in antepartum period ([facility]) Rhesus isoimmunization affecting management of mother, antepartum condition GBS bacteriuria Pyelectasis of fetus on ultrasound ([facility]) Abnormal findings on screening Supervision of high risk in third trimester ([facility])- Primary Unspecified high-risk 31 weeks gestation of ([facility]) state, incidental Obesity affecting in third trimester, unspecified obesity type ([facility]) [facility] Diagnosis BMI 40.0-44.9, adult ([facility])- Primary Body Mass Index 40.0-44.9, adult Supervision of high risk in first trimester ([facility]) Unspecified high-risk Severe obesity due to excess calories affecting , antepartum ([facility]) Postablative hypothyroidism Other postablative hypothyroidism Supervision of high risk in second trimester ([facility])- Primary Unspecified high-risk 20 weeks gestation of ([facility]) state, incidental BMI 40.0-44.9, adult ([facility]) Body Mass Index 40.0-44.9, adult Obesity in ([facility]) Obesity complicating , childbirth, or the puerperium, unspecified as to episode of care or not applicable Postablative hypothyroidism Other postablative hypothyroidism Rh negative state in antepartum period ([facility]) Rhesus isoimmunization affecting management of mother, antepartum condition GBS bacteriuria Pyelectasis of fetus on ultrasound ([facility]) Abnormal findings on screening Pyelectasis of fetus on ultrasound ([facility])- Primary Abnormal findings on screening Supervision of high risk in second trimester ([facility]) Unspecified high-risk 20 weeks gestation of ([facility]) state, incidental BMI 40.0-44.9, adult ([facility]) Body Mass Index 40.0-44.9, adult Obesity in ([facility]) Obesity complicating , childbirth, or the puerperium, unspecified as to episode of care or not applicable [facility] Diagnosis BMI 40.0-44.9, adult ([facility])- Primary Body Mass Index 40.0-44.9, adult Supervision of high risk in first trimester ([facility]) Unspecified high-risk Severe obesity due to excess calories affecting , antepartum ([facility]) Postablative hypothyroidism Other postablative hypothyroidism Supervision of high risk in second trimester ([facility])- Primary Unspecified high-risk 20 weeks gestation of ([facility]) state, incidental BMI 40.0-44.9, adult ([facility]) Body Mass Index 40.0-44.9, adult Obesity in ([facility]) Obesity complicating , childbirth, or the puerperium, unspecified as to episode of care or not applicable Postablative hypothyroidism Other postablative hypothyroidism Rh negative state in antepartum period ([facility]) Rhesus isoimmunization affecting management of mother, antepartum condition GBS bacteriuria Pyelectasis of fetus on ultrasound ([facility]) Abnormal findings on screening Supervision of high risk in third trimester ([facility])- Primary Unspecified high-risk 32 weeks gestation of ([facility]) state, incidental Obesity affecting in third trimester, unspecified obesity type ([facility]) Supervision of high risk in first trimester ([facility]) Unspecified high-risk [facility] BMI 40.0-44.9, adult ([facility])- Primary Body Mass Index 40.0-44.9, adult Supervision of high risk in first trimester ([facility]) Unspecified high-risk Severe obesity due to excess calories affecting , antepartum ([facility]) Postablative hypothyroidism Other postablative hypothyroidism Supervision of high risk in second trimester ([facility])- Primary Unspecified high-risk 20 weeks gestation of ([facility]) state, incidental BMI 40.0-44.9, adult ([facility]) Body Mass Index 40.0-44.9, adult Obesity in ([facility]) Obesity complicating , childbirth, or the puerperium, unspecified as to episode of care or not applicable Postablative hypothyroidism Other postablative hypothyroidism Rh negative state in antepartum period ([facility]) Rhesus isoimmunization affecting management of mother, antepartum condition GBS bacteriuria Pyelectasis of fetus on ultrasound ([facility]) Abnormal findings on screening Supervision of high risk in third trimester ([facility])- Primary Unspecified high-risk Obesity affecting in third trimester, unspecified obesity type ([facility]) Hypothyroidism, unspecified type Depression during in third trimester ([facility]) 33 weeks gestation of ([facility]) state, incidental Anemia during in third trimester ([facility]) documented in this encounter [facility] note* Diagnosis BMI 40.0-44.9, adult ([facility])- Primary Body Mass Index 40.0-44.9, adult Supervision of high risk in first trimester ([facility]) Unspecified high-risk Severe obesity due to excess calories affecting , antepartum ([facility]) Postablative hypothyroidism Other postablative hypothyroidism Supervision of high risk in second trimester ([facility])- Primary Unspecified high-risk 20 weeks gestation of ([facility]) state, incidental BMI 40.0-44.9, adult ([facility]) Body Mass Index 40.0-44.9, adult Obesity in ([facility]) Obesity complicating , childbirth, or the puerperium, unspecified as to episode of care or not applicable Postablative hypothyroidism Other postablative hypothyroidism Rh negative state in antepartum period ([facility]) Rhesus isoimmunization affecting management of mother, antepartum condition GBS bacteriuria Pyelectasis of fetus on ultrasound ([facility]) Abnormal findings on screening Supervision of high risk in third trimester ([facility])- Primary Unspecified high-risk Obesity affecting in third trimester, unspecified obesity type ([facility]) Hypothyroidism, unspecified type Depression during in third trimester ([facility]) 34 weeks gestation of ([facility]) state, incidental Pyelectasis of fetus on ultrasound ([facility]) Abnormal findings on screening Anemia during in third trimester ([facility]) documented in this encounter [facility] note* Diagnosis BMI 40.0-44.9, adult ([facility])- Primary Body Mass Index 40.0-44.9, adult Supervision of high risk in first trimester ([facility]) Unspecified high-risk Severe obesity due to excess calories affecting , antepartum ([facility]) Postablative hypothyroidism Other postablative hypothyroidism Supervision of high risk in second trimester ([facility])- Primary Unspecified high-risk 20 weeks gestation of ([facility]) state, incidental BMI 40.0-44.9, adult ([facility]) Body Mass Index 40.0-44.9, adult Obesity in ([facility]) Obesity complicating , childbirth, or the puerperium, unspecified as to episode of care or not applicable Postablative hypothyroidism Other postablative hypothyroidism Rh negative state in antepartum period ([facility]) Rhesus isoimmunization affecting management of mother, antepartum condition GBS bacteriuria Pyelectasis of fetus on ultrasound ([facility]) Abnormal findings on screening 35 weeks gestation of ([facility])- Primary state, incidental Supervision of high risk in third trimester ([facility]) Unspecified high-risk Obesity affecting in third trimester, unspecified obesity type ([facility]) documented in this encounter [facility] note* Diagnosis BMI 40.0-44.9, adult ([facility])- Primary Body Mass Index 40.0-44.9, adult Supervision of high risk in first trimester ([facility]) Unspecified high-risk Severe obesity due to excess calories affecting , antepartum ([facility]) Postablative hypothyroidism Other postablative hypothyroidism Supervision of high risk in second trimester ([facility])- Primary Unspecified high-risk 20 weeks gestation of ([facility]) state, incidental BMI 40.0-44.9, adult ([facility]) Body Mass Index 40.0-44.9, adult Obesity in ([facility]) Obesity complicating , childbirth, or the puerperium, unspecified as to episode of care or not applicable Postablative hypothyroidism Other postablative hypothyroidism Rh negative state in antepartum period ([facility]) Rhesus isoimmunization affecting management of mother, antepartum condition GBS bacteriuria Pyelectasis of fetus on ultrasound ([facility]) Abnormal findings on screening Obesity in ([facility])- Primary Obesity complicating , childbirth, or the puerperium, unspecified as to episode of care or not applicable Supervision of high risk in third trimester ([facility]) Unspecified high-risk Obesity affecting in third trimester, unspecified obesity type ([facility]) documented in this encounter [facility] note* Diagnosis BMI 40.0-44.9, adult ([facility])- Primary Body Mass Index 40.0-44.9, adult Supervision of high risk in first trimester ([facility]) Unspecified high-risk Severe obesity due to excess calories affecting , antepartum ([facility]) Postablative hypothyroidism Other postablative hypothyroidism Supervision of high risk in second trimester ([facility])- Primary Unspecified high-risk 20 weeks gestation of ([facility]) state, incidental BMI 40.0-44.9, adult ([facility]) Body Mass Index 40.0-44.9, adult Obesity in ([facility]) Obesity complicating , childbirth, or the puerperium, unspecified as to episode of care or not applicable Postablative hypothyroidism Other postablative hypothyroidism Rh negative state in antepartum period ([facility]) Rhesus isoimmunization affecting management of mother, antepartum condition GBS bacteriuria Pyelectasis of fetus on ultrasound ([facility]) Abnormal findings on screening Obesity affecting in third trimester, unspecified obesity type ([facility])- Primary 36 weeks gestation of ([facility]) state, incidental Supervision of high risk in third trimester ([facility]) Unspecified high-risk [facility] Diagnosis BMI 40.0-44.9, adult ([facility])- Primary Body Mass Index 40.0-44.9, adult Supervision of high risk in first trimester ([facility]) Unspecified high-risk Severe obesity due to excess calories affecting , antepartum ([facility]) Postablative hypothyroidism Other postablative hypothyroidism Supervision of high risk in second trimester ([facility])- Primary Unspecified high-risk 20 weeks gestation of ([facility]) state, incidental BMI 40.0-44.9, adult ([facility]) Body Mass Index 40.0-44.9, adult Obesity in ([facility]) Obesity complicating , childbirth, or the puerperium, unspecified as to episode of care or not applicable Postablative hypothyroidism Other postablative hypothyroidism Rh negative state in antepartum period ([facility]) Rhesus isoimmunization affecting management of mother, antepartum condition GBS bacteriuria Pyelectasis of fetus on ultrasound ([facility]) Abnormal findings on screening Supervision of high risk in third trimester ([facility])- Primary Unspecified high-risk 37 weeks gestation of ([facility]) state, incidental Obesity affecting in third trimester, unspecified obesity type ([facility]) Postablative hypothyroidism Other postablative hypothyroidism GBS bacteriuria Depression during in third trimester ([facility]) [facility] Attachments The following attachments cannot be sent through Care Everywhere. * Viral Pharyngitis (Polish) [facility] Narrative* Diagnostic Procedure Only (Routine) - Closed Specialty Diagnoses / Procedures Referred By Contdanis t Referred To Contact [facility] Diagnoses BMI 40.0-44.9, adult ([facility]) Supervision of high risk in first trimester ([facility]) Severe obesity due to excess calories affecting , antepartum ([facility]) Procedures OBSTETRIC ULTRASOUND WHI US PREG UTERUS AFTER 1ST TRIMEST GESTATION Cleo Portillo MD [address] [place] [address] Phone: tel: fax: [facility] [address] [place] [address] Referral ID Status Reason Start Date Expiration Date V isits Requested Visits Authorized [id number] Closed Auto-Generate d Referral 05/22/2024 05/22/2025 1 1 [facility] Summary Purpose Family History No Family History Records FoundNo Family History Records FoundNo Family History Records FoundNo Family History Records FoundNo Family History Records FoundNo Family History Records FoundNo Family History Records FoundNo Family History Records FoundNo Family History Records FoundNo Family History Records FoundNo Family History Records Found Advance Directives No Advanced Directives Records FoundDocuments on File Type Date Recorded Patient [employer]or Expl anation ACP-Advance Directive ACP-[employer] Latest Code Status on File Code Status Date Activated Date Inactivated Comments Full Code 05/30/2017 5:18 PM 06/03/2017 5:29 PM Full Code 05/30/2017 2:27 PM 05/30/2017 2:30 PM Latest Code Status on File Code Status Date Activated Date Inactivated Comments Full Code 07/11/2023 11:45 AM Question Answer Comments Documentation of decision process for this code status: Discussed with patient or surrogate. This is the code status chosen by the patient/surrogate. Latest Code Status on File Code Status Date Activated Date Inactivated Comments Full Code 07/11/2023 11:45 AM 07/12/2023 2:11 PM Question Answer Comments Documentation of decision process for this code status: Discussed with patient or surrogate. This is the code status chosen by the patient/surrogate. Date Activated Date Inactivated Comments 07/11/2023 11:45 AM 07/12/2023 2:11 PM Question Answer Comments Documentation of decision pr ocess for this code status: Discussed with patient or surrogate. This is the code status chosen by the patient/surrogate. Assessments Diagnosis Anxiety Anxiety state, unspecified Concentration deficit Attention or concentration deficit Thyromegaly Goiter, unspecified Reason for Referral Specialty Diagnoses / Procedures Referred By Luis Enrique bender Referred To Contact Gynecology Diagnoses DUB (dysfunctional uterine bleeding) PCOS (polycystic ovarian syndrome) Adore Morales MD [address] [place] [address] [place] [address] [facility] SENIOR OFFICER [address] [place] [address] Referral ID Status Reason Start Date Expiration Date V isits Requested Visits Authorized [id number] Authorized 06/24/2022 06/25/2023 3 3 Scheduling Instructions Please call the [facility] at [phone] to schedule an appointment if one was not made for you. Specialty Diagnoses / Procedures Referred By Luis Enrique bender Referred To Contact Psychiatry Diagnoses Attention deficit hyperactivity disorder (ADHD), unspecified ADHD type Behavior concern Adore Morales MD [address] [place] [address] [place] [address] [facility] PS[facility] ADULT [facility]AL [address] [place] [address] Referral ID Status Reason Start Date Expiration Date V isits Requested Visits Authorized [id number] Authorized 06/23/2022 06/24/2023 3 3 Scheduling Instructions You have been referred to Outpatient Behavioral Health. In order to begin services, you will need to attend an intake assessment with a licensed acupuncturist. (No medications will be provided at this appointment. Linkage to treatment is made after completion of the initial assessment.) To schedule an intake, please contact our office at and we will schedule you an appointment with a licensed acupuncturist. All scheduled intake appointments run between 8AM-4:00PM Tuesday through Tuesday. Intakes are available in person or via telehealth. For quicker access, please consider using our online scheduling tool at [email or web address]. New appointment times are released daily. [facility] Outpatient Behavioral Health is located on the 8th floor of the [facility] C elevators to the 8th floor. [facility], in partnership with [facility], is a provider of prevention education, treatment, and recovery services for individuals impacted by mental health and/or addiction issues. [facility] provides addiction and mental health assessments at two convenient locations in [facility]. o [address] [facility] (walk-in available) o [address] [facility] (by appointment only) Walk-in assessments operate from 8am-2pm and are first come, first serve. Assessment appointments can also be made by calling [phone] or utilizing our online scheduling tool at [email or web address]. We look forward to assisting you. [facility] you [facility]. Question Answer Behavioral Health Service Options Counseling Comments Please utilize the FST431, Addiction Referral Outpatient if requesting that this patient be evaluated for Substance Use Disorder (BHAVYA) reasons. Specialty Diagnoses / Procedures Referred By Contac t Referred To Contact Radiology Diagnoses DUB (dysfunctional uterine bleeding) PCOS (polycystic ovarian syndrome) Procedures US FEMALE PELVIS+BLADDER Adore Morales MD [address] [place] [address] [place] [address] S ULTR[address]OUND [address] [place] [address] Referral ID Status Reason Start Date Expiration Date V isits Requested Visits Authorized [id number] Authorized 06/23/2022 06/23/2023 1 1 Specialty Diagnoses / Procedures Referred By Contac t Referred To Contact Radiology Diagnoses Thyromegaly Procedures US THYROID Adore Morales MD [address] [place] [address] [place] [address] [facility] ULTRASOUND [address] [place] [address] Referral ID Status Reason Start Date Expiration Date Visits Re quested Visits Authorized [id number] Closed 08/06/2022 08/06/2023 1 1 Specialty Diagnoses / Procedures Referred By Contac t Referred To Contact General Surgery Diagnoses Multiple thyroid nodules Adore Morales MD [address] [place] [address] [place] [address] Vick Kincaid MD [address] [place] [phone] Referral ID Status Reason Start Date Expiration Date V isits Requested Visits Authorized [id number] Authorized 10/10/2022 04/08/2023 3 3 Scheduling Instructions Please call the Surgery Clinic at to schedule an appointment if one was not made for you today. Question Answer Reason for evaluation: Thyroid/Neck Mass Specialty Diagnoses / Procedures Referred By Luis Enrique t Referred To Contact Nutrition Diagnoses Obesity, unspecified classification, unspecified obesity type, unspecified whether serious comorbidity present Adore Morales MD [address] [place] [address] [facility] NUTRITION [address] [place] [address] Referral ID Status Reason Start Date Expiration Date Visits Requested Visits Authorized [id number] Authorized [facility] 11/11/2022 11/06/2023 3 3 Scheduling Instructions Please call the Nutrition Clinic at to schedule an appointment if one was not made for you today. Question Answer Please specify primary reason for consult. Other - 'disordered eating' /weight Comments No prior visits in Nutrition Additional Source Comments INFORMATION SOURCE (unrecogn ized section and content) DATE CREATED AUTHOR 09/05/2017 [facility] DATE CREATED AUTHOR AUTHOR'S ORGANIZ ATION 09/06/2017 [facility] DATE CREATED AUTHOR AUTHOR'S ORGANIZ ATION 09/15/2017 [facility] DATE CREATED AUTHOR AUTHOR'S ORGANIZ ATION 05/15/2020 [facility] DATE CREATED AUTHOR AUTHOR'S ORGANIZ ATION 06/19/2020 [facility] DATE CREATED AUTHOR AUTHOR'S ORGANIZ ATION 10/01/2022 [facility] DATE CREATED AUTHOR AUTHOR'S ORGANIZ ATION 01/15/2024 [facility] DATE CREATED AUTHOR AUTHOR'S ORGANIZ ATION 06/16/2024 [facility] DATE CREATED AUTHOR AUTHOR'S ORGANIZ ATION 07/06/2024 [employer] [facility] DATE CREATED AUTHOR AUTHOR'S ORGANIZ ATION 11/10/2024 [facility] DATE CREATED AUTHOR AUTHOR'S ORGANIZ ATION 11/16/2024 [facility] Reason for Visit (unrecogniz ed section and content) Reason Onset Date Comments Population Health Navigation Outreach 11/08/2024 to PCP/OB Reason Onset Date Comments Care 11/05/2024 Reason Onset Date Comments Care 10/29/2024 Reason Onset Date Comments Care 10/22/2024 Reason Onset Date Comments Care 10/15/2024 Reason Onset Date Comments Care 10/08/2024 Reason Onset Date Comments Care 10/01/2024 Reason Onset Date Comments Care 09/24/2024 Reason Onset Date Comments Care 09/17/2024 Reason Onset Date Comments Care 09/03/2024 Reason Onset Date Comments Care 08/20/2024 Reason Onset Date Comments Discuss results test/procedures 03/27/2024 Reason Comments Headache Back symptoms/complaints Reason Comments Test Pt states here today to confirm positive home test. Reason Onset Date Comments Results 04/24/2024 Reason Comments Question (OB Question) Reason Onset Date Comments Care 06/11/2024 Reason Comments Results Reason Onset Date Comments Care 05/22/2024 Specialty Diagnoses / Procedures Referred By Contac t Referred To Contact [facility] Diagnoses NEW OB LMP ?? seen 04/17/24 at [facility] est to be 9 wks Procedures NEw ob est ob 1st visit Self [id number] [place] [address] Referral ID Status Reason Start Date Expiration Date V isits Requested Visits Authorized [id number] Closed Patient Cleared - Qualified 100% FAS 04/19/2024 06/18/2024 99 99 Reason Comments US Specialty Diagnoses / Procedures Referred By Contac t Referred To Contact [facility] Diagnoses 9 weeks gestation of Procedures OBSTETRIC ULTRASOUND WHI US PREG UTERUS AFTER 1ST TRIMEST GESTATION Dina Sanchez, YOHANA.C[employer] [address] [place] [address] Phone: tel: fax: [facility] [address] [place] [address] Referral ID Status Reason Start Date Expiration Date V isits Requested Visits Authorized [id number] Closed Auto-Generate d Referral 04/24/2024 04/24/2025 1 1 Reason Comments Orders Reason Comments Initial OB Visit Specialty Diagnoses / Procedures Referred By Contac t Referred To Contact [facility] Diagnoses NEW OB LMP ?? seen 04/17/24 at [facility] center est to be 9 wks Procedures NEw ob est ob 1st visit Self [facility] [address] [place] [address] Referral ID Status Reason Start Date Expiration Date Visits Requested Visits Authorized [id number] Authorized Patient Cleared - Qualified 100% FAS 04/19/2024 06/18/2024 99 99 Reason Onset Date Comments Discuss results test/procedures 05/30/2023 Reason Comments Post-op Follow-up Reason Comments ER follow-up Patient is here for a ED FU from July 15, for migraines, it was a consistent from when she had her surgery, her headache stopped once she was at the hospital and they gave her a headache cocktail she doesn't have one currently but she feels like one is just waiting to come. Reason Comments Care Coordination Outreach ER follow-up Health Maintenance Outreach APPOINTMENT SCHEDULING Medical Record Review Reason Onset Date Comments Pt Update 07/16/2023 Reason Comments Headache Pt presents to ed wi th migraine since Tuesday since surgery (thyroidectomy). Pt recv'd Excedrin but no intermediate relief. -vision changes, +photosensitive, -n/v/d, -fever, cills Reason Comments Headache Reason Onset Date Comments Headache 07/14/2023 Reason Comments Care Coordination Hospital follow-up Reason Comments Cough Pt states lungs nilson t, tonsils swollen, lots of coughing Reason Comments Consult with specialist Specialty Diagnoses / Procedures Referred By Contac t Referred To Contact General Surgery Diagnoses Multiple thyroid nodules Adore Morales MD [address] [place] [address] [place] [address] [place] [address] Referral ID Status Reason Start Date Expiration Date V isits Requested Visits Authorized [id number] Authorized 10/10/2022 04/08/2023 3 3 Reason Comments Discuss results test/procedures Specialty Diagnoses / Procedures Referred By Contac t Referred To Contact Radiology Diagnoses DUB (dysfunctional uterine bleeding) PCOS (polycystic ovarian syndrome) Procedures US PELVIS/TRANSVAG (NICOLE) US FEMALE PELVIS+BLADDER Adore Morales MD [address] [place] [address] [place] [address] [facility] [address] [place] [address] Referral ID Status Reason Start Date Expiration Date Visits Re quested Visits Authorized [id number] Closed 06/23/2022 06/23/2023 1 1 Reason Onset Date Comments Discuss results test/procedures 06/24/2022 REFERENCE 99 <item> Privacy Markings (unrecogniz ed section and content) Section Author: Vanessa Dubois PROHIBITION ON REDISCLOSURE OF CONFIDENTIAL INFORMATION This notice accompanies a disclosure of information concerning a client made to you with the consent of such client. Care Teams (unrecognized sec tion and content) Campaign Management Senior Manager Relationship Specialty Start Date End Date Adore Morales MD [address] [place] [address] [place] [address] PCP - General Family Medicine 11/05/22 Campaign Management Senior Manager Relationship Specialty Start Date End Date Adore Morales MD [address] [place] [address] [place] [address] PCP - General Family Medicine 11/05/22 Campaign Management Senior Manager Relationship Specialty Start Date End Date Adore Morales MD [address] [place] [address] [place] [address] PCP - General Family Medicine 11/05/22 Campaign Management Senior Manager Relationship Specialty Start Date End Date Adore Morales MD [address] [place] [address] [place] [address] PCP - General Family Medicine 11/05/22 Vick Kincaid MD [address] [place] [address] Physician General Surgery 02/12/23 Campaign Management Senior Manager Relationship Specialty Start Date End Date Adore Morales MD [address] [place] [address] [address] [id number] PCP - General Family Medicine 11/05/22 Vick Kincaid MD [address] [place] [address] Physician General Surgery 02/12/23 Campaign Management Senior Manager Relationship Specialty Start Date End Date Adore Morales MD [address] [place] [address] [address] [place] [place] [address] PCP - General Family Medicine 11/05/22 Vick Kincaid MD [address] [place] [address] Physician General Surgery 02/12/23 Campaign Management Senior Manager Relationship Specialty Start Date End Date Adore Morales MD [address] [place] [address] [address] [place] PCP - General Family Medicine 11/05/22 Vick Kincaid MD [address] [place], [place] Physician General Surgery 02/12/23 Campaign Management Senior Manager Relationship Specialty Start Date End Date Adore Morales MD [address] [place] [address] [place] [address] PCP - General Family Medicine 11/05/22 Vick Kincaid MD [address] [place] [address] Physician General Surgery 02/12/23 Campaign Management Senior Manager Relationship Specialty Start Date End Date Adore Morales MD [address] [place] [address] [address] [place] PCP - General Family Medicine 11/05/22 Vick Kincaid MD [address] [place] [address] Physician General Surgery 02/12/23 Campaign Management Senior Manager Relationship Specialty Start Date End Date Adore Morales MD [address] [place] [address] [address] [place] PCP - General Family Medicine 11/05/22 Vick Kincaid MD [address] [place] [address] Physician General Surgery 02/12/23 Kajal Khan RN [address] [place] [address] Director Of Rehabilitative Services Care Management 07/13/23 08/10/23 Campaign Management Senior Manager Relationship Specialty Start Date End Date Adore Morales MD [address] [place] [address] [address] [place] PCP - General Family Medicine 11/05/22 Vick Kincaid MD [address] [place] [address] Physician General Surgery 02/12/23 Kajal Khan, ALEXEY [address] [place] [address] Director Of Rehabilitative Services Care Management 07/13/23 08/10/23 Campaign Management Senior Manager Relationship Specialty Start Date End Date Adore Morales MD [address] [place] [address] [place] [address] PCP - General Family Medicine 11/05/22 Vick Kincaid MD [address] [place] [address] Physician General Surgery 02/12/23 Kajal Khan, RN [address] [place] [id number] Director Of Rehabilitative Services Care Management 07/13/23 08/10/23 Campaign Management Senior Manager Relationship Specialty Start Date End Date Adore Morales MD [address] [place] [address] [address] [place] [address] PCP - General Family Medicine 11/05/22 Vick Kincaid MD [address] [place] [address] Physician General Surgery 02/12/23 Kajal Khan, RN [address] [place] [address] Director Of Rehabilitative Services Care Management 07/13/23 08/10/23 Campaign Management Senior Manager Relationship Specialty Start Date End Date Adore Morales MD [address] [place] [address] [place] [address] PCP - General Family Medicine 11/05/22 Vick Kincaid MD [address] [place] [address] Physician General Surgery 02/12/23 Kajal Khan, RN [address] [place] [address] Director Of Rehabilitative Services Care Management 07/13/23 08/10/23 Campaign Management Senior Manager Relationship Specialty Start Date End Date Adore Morales MD [address] [place] [address] [place] [address] PCP - General Family Medicine 11/05/22 Vick Kincaid MD [address] [place] [address] Physician General Surgery 02/12/23 Kajal Khan, RN [address] [place] [address] Director Of Rehabilitative Services Care Management 07/13/23 08/10/23 Campaign Management Senior Manager Relationship Specialty Start Date End Date Adore Morales MD [address] [place] [address] [address] [place] [id number] PCP - General Family Medicine 11/05/22 Vick Kincaid MD [address] [place] [address] Physician General Surgery 02/12/23 Kajal Khan, RN [address] [place] [address] Director Of Rehabilitative Services Care Management 07/13/23 08/10/23 Campaign Management Senior Manager Relationship Specialty Start Date End Date Adore Morales MD [address] [place] [address] [address] [place] [address] PCP - General Family Medicine 11/05/22 Vick Kincaid MD [address] [place] [address] Physician General Surgery 02/12/23 Kajal Khan, RN [address] [place] [address] Director Of Rehabilitative Services Care Management 07/13/23 08/10/23 Campaign Management Senior Manager Relationship Specialty Start Date End Date Adore Morales MD [address] [place] [address] PCP - General Family Medicine 11/05/22 Vick Kincaid MD [address] [place] [address] Physician General Surgery 02/12/23 Campaign Management Senior Manager Relationship Specialty Start Date End Date Myrtle Cobb DO [address] [place], [place] [address] PCP - General Internal Medicine 06/16/20 Campaign Management Senior Manager Relationship Specialty Start Date End Date Myrtle Cobb DO [address] [place] [address] PCP - General Internal Medicine 06/16/20 Campaign Management Senior Manager Relationship Specialty Start Date End Date Myrtle Cobb DO [address] [place] [address] PCP - General Internal Medicine 06/16/20 Campaign Management Senior Manager Relationship Specialty Start Date End Date Myrtle Cobb DO [address] [place] [address] PCP - General Internal Medicine 06/16/20 Campaign Management Senior Manager Relationship Specialty Start Date End Date Myrtle Cobb DO [address] [place] [address] PCP - General Internal Medicine 06/16/20 Campaign Management Senior Manager Relationship Specialty Start Date End Date Myrtle Cobb DO [address] [place], [place] [address] PCP - General Internal Medicine 06/16/20 Campaign Management Senior Manager Relationship Specialty Start Date End Date Myrtle Cobb DO [facility] [place] [address] PCP - General Internal Medicine 06/16/20 Campaign Management Senior Manager Relationship Specialty Start Date End Date Adore Morales MD [address] [place] [address] [place] [address] PCP - General Family Medicine 06/12/24 Campaign Management Senior Manager Relationship Specialty Start Date End Date [facility] Cobb [facility] [place] [address] PCP - General Internal Medicine 06/16/20 06/11/24 dAore Morales MD [address] [place] [address] [place] [address] PCP - General Family Medicine 06/12/24 Campaign Management Senior Manager Relationship Specialty Start Date End Date Adore Morales MD [address] [place] [address] [place] [address] PCP - General Family Medicine 11/05/22 Vick Kincaid MD [address] [place] [phone] Physician General Surgery 02/12/23 Campaign Management Senior Manager Relationship Specialty Start Date End Date Myrtle Cobb [facility] [place] [address] PCP - General Internal Medicine 06/16/20 06/11/24 Campaign Management Senior Manager Relationship Specialty Start Date End Date Adore Morales MD [address] [place] [address] [place] [address] PCP - General Family Medicine 11/05/22 Vick Kincaid MD [address] [place] [phone] Physician General Surgery 02/12/23 Campaign Management Senior Manager Relationship Specialty Start Date End Date Myrtle Cobb DO [address] [place] [address] PCP - General Internal Medicine 06/16/20 06/11/24 Adore Morales MD [address] [place] [address] [place] [address] PCP - General Family Medicine 06/12/24 Campaign Management Senior Manager Relationship Specialty Start Date End Date Adore Morales MD [address] [place] [address] [place] [address] PCP - General Family Medicine 06/12/24 Campaign Management Senior Manager Relationship Specialty Start Date End Date Adore Morales MD [address] [place] [address] [place] [address] PCP - General Family Medicine 06/12/24 Campaign Management Senior Manager Relationship Specialty Start Date End Date Adore Morales MD [address] [place] [address] [place] [address] PCP - General Family Medicine 06/12/24 Campaign Management Senior Manager Relationship Specialty Start Date End Date Adore Morales MD [address] [place] [address] [place] [address] PCP - General Family Medicine 11/05/22 Vick Kincaid MD [address] [place] [phone] Physician General Surgery 02/12/23 Campaign Management Senior Manager Relationship Specialty Start Date End Date Adore Morales MD [address] [place] [address] [place] [address] PCP - General Family Medicine 06/12/24 Campaign Management Senior Manager Relationship Specialty Start Date End Date Adore Morales MD [address] [place] [address] [place] [address] PCP - General Family Medicine 06/12/24 Campaign Management Senior Manager Relationship Specialty Start Date End Date Adore Morales MD [address] [place] [address] [place] [address] PCP - General Family Medicine 06/12/24 Campaign Management Senior Manager Relationship Specialty Start Date End Date Adore Morales MD [address] [place] [address] [place] [address] PCP - General Family Medicine 06/12/24 Campaign Management Senior Manager Relationship Specialty Start Date End Date Adore Morales MD [address] [place] [address] [place] [address] PCP - General Family Medicine 06/12/24 Campaign Management Senior Manager Relationship Specialty Start Date End Date Adore Morales MD [address] [place] [address] [place] [address] PCP - General Family Medicine 06/12/24 Campaign Management Senior Manager Relationship Specialty Start Date End Date Adore Morales MD [address] [place] [address] [place] [address] PCP - General Family Medicine 11/05/22 Vick Kincaid MD [address] [place] [address] Physician General Surgery 02/12/23 Campaign Management Senior Manager Relationship Specialty Start Date End Date Adore Morales MD [address] [place] [address] [place] [address] PCP - General Family Medicine 06/12/24 Campaign Management Senior Manager Relationship Specialty Start Date End Date Adore Morales MD [address] [place] [address] [place] [address] PCP - General Family Medicine 06/12/24 Campaign Management Senior Manager Relationship Specialty Start Date End Date Adore Morales MD [address] [place] [address] [place] [address] PCP - General Family Medicine 06/12/24 Campaign Management Senior Manager Relationship Specialty Start Date End Date Adore Morales MD [address] [place] [address] PCP - General Family Medicine 06/12/24 Scheduled Active and Recently Administ ered Medications (unrecognized section and content) Medication Order 07/10/2023 07/11/2023 07/12/2023 acetaminophen (TYLENOL) 650 MG/20.3ML oral solution(Linked Group 1) 1,000 mg, Oral, EVERY 8 HOURS, First dose (after last modification) on Tue07/11/23 at 1600, Until Discontinued 1629 (See Alternative - Provider: Alaina Vizcaino LPN) 0018 (See Alternative - Provider: Aki Shankar RN)1005 (See Alternative - Provider: Nicole Alexander RN)1600 (Due) acetaminophen (TYLENOL) tablet(Linked Group 1) 1,000 mg, Oral, EVERY 8 HOURS, First dose (after last modification) on Tue07/11/23 at 1600, Until Discontinued 1629 (Given - Provider: Alaina Vizcaino LPN) 0018 (Given - Provider: Aki Shankar RN)1005 (Given - Provider: Nicole Alexander RN)1600 (Due) calcium (elemental) (OSCAL)) 500 MG tablet 500 mg, Oral, 3 TIMES DAILY, First dose on Tue07/12/23 at 0900, Until Discontinued 1030 (Hold/Not Given - Provider: Nicole Alexander RN - Reason: Clinical contraindications - Comment: unable to give b/c of synthroid admin time)1400 (Due)2200 (Due) docusate sodium (COLACE) capsule 100 mg, Oral, 2 TIMES DAILY, First dose on Tue07/11/23 at 1230, Until Discontinued 1230 (Hold/Not Given - Provider: Alaina Vizcaino LPN - Reason: Patient refused)1629 (Given - Provider: Alaina Vizcaino LPN - Comment: pt asked to have colace)2100 (Given - Provider: Aki Shankar RN) 1005 (Given - Provider: Nicole Alexander RN)2100 (Due) ibuprofen (MOTRIN) 100 MG/5ML oral suspension(Linked Group 2) 800 mg, Oral, EVERY 8 HOURS, First dose (after last modification) on Tue07/11/23 at 2000, Until Discontinued 1999 (See Alternative - Provider: Aki Shankar RN) 0440 (See Alternative - Provider: Aki Shankar RN)1200 (Due)2000 (Due) ibuprofen (MOTRIN) tablet(Linked Group 2) 800 mg, Oral, EVERY 8 HOURS, First dose (after last modification) on Tue07/11/23 at 2000, Until Discontinued 1999 (Given - Provider: Aki Shankar RN) 0440 (Given - Provider: Aki Shankar RN)1200 (Due)2000 (Due) levothyroxine (SYNTHROID) tablet 150 mcg, Oral, DAILY 30 MIN BEFORE BREAKFAST, First dose (after last modification) on Tue07/12/23 at 0830, Until Discontinued 1005 (Given - Provid er: Nicole Alexander RN) scopolamine (TRANSDERM-SCOP) 1 MG/3DAYS patch 1.5 mg, Transdermal, ONCE, 1 dose, On Tue07/11/23 at 0800, Pre-op 0721 (Patch Applied - Provider: Terra Meraz, ALEXEY) PRN Medication Order 07/10/2023 07/11/2023 07/12/2023 acetaminophen (TYLENOL) tablet (CANCELED) 1,000 mg, Oral, PACU ONCE PRN, Starting on Tue07/11/23 at 0700, Until Tue07/11/23 at 1139, Mild Pain (pain score 1,2,3), PACU Now 0721 (Given - Provider: Courtney Meraz, ALEXEY) amisulpride (BARHEMSYS) injection 10 mg (COMPLETED) 10 mg, Intravenous Push, ONCE PRN, 1 dose, Starting on Tue07/11/23 at 0700, Until Discontinued, Nausea/Vomiting, PACU Now 1037 (Given - Provider: Arie Obregon RN) bupivacaine (PF) (MARCAINE) 0.5 % injection (CANCELED) PRN, Starting on Tue07/11/23 at 0935, Until Tue07/11/23 at 1027, Intra-op 0935 (Given - Provider: Vick Kincaid MD)1015 (Given - Provider: Ninfa Prescott PA-C) dyclonine (SUCRETS) 2 MG lozenge 2 mg, Mouth/Throat, EVERY 2 HOURS PRN, Starting on Tue07/11/23 at 1144, Until Discontinued, Sore throat 1836 (Given - Provider: Makeda Vizcaino LPN) gelatin adsorbable (SURGIFOAM) 12-7 MM sponge (CANCELED) PRN, Starting on Tue07/11/23 at 0935, Until Tue07/11/23 at 1027, Intra-op 0935 (Given - Provider: Vick Kincaid MD) HYDROmorphone (DILAUDID) 1 mg/mL injection (CANCELED) 0.5 mg, Intravenous Push, PACU EVERY 15 MIN PRN X 4 DOSES, 4 doses, Starting on Tue07/11/23 at 0700, Until Tue07/11/23 at 1139, Severe Pain (pain score 7,8,9,10), PACU Now 1035 (Given - Provider: Arie ala Sabas, RN)1100 (Given - Provider: Lilia Obregon RN)1115 (Given - Provider: Lilia Obregon RN) ondansetron (ZOFRAN) 4 MG/2ML injection 4 mg, Intravenous Push, EVERY 6 HOURS PRN, Starting on Tue07/11/23 at 1144, Until Discontinued, Nausea oxyCODONE (ROXICODONE) 5 mg/5 mL oral solution(Linked Group 3) 5 mg, Oral, EVERY 6 HOURS PRN, Starting on Tue07/11/23 at 1144, Until Discontinued, Pain (pain score 3-10) 1833 (See Alternative - Provider: Alaina Vizcaino LPN) oxyCODONE immediate release tablet(Linked Group 3) 5 mg, Oral, EVERY 6 HOURS PRN, Starting on Tue07/11/23 at 1144, Until Discontinued, Pain (pain score 3-10) 1833 (Given - Provider: Makeda Vizcaino LPN) thrombin 5,000 units 5000 units topical kit (CANCELED) PRN, Starting on Tue07/11/23 at 0935, Until Tue07/11/23 at 1027, Intra-op 0935 (Given - Provider: Vick Kincaid MD) Linked Groups Order Group 1: acetaminophen (TYLENOL) tabletJump to med 1,000 mg, Oral, EVERY 8 HOURS, First dose (after last modification) on Tue07/11/23 at 1600, Until Discontinued Or acetaminophen (TYLENOL) 650 MG/20.3ML oral solutionJump to med 1,000 mg, Oral, EVERY 8 HOURS, First dose (after last modification) on Tue07/11/23 at 1600, Until Discontinued Group 2: ibuprofen (MOTRIN) tabletJump to med 800 mg, Oral, EVERY 8 HOURS, First dose (after last modification) on Tue07/11/23 at 2000, Until Discontinued Or ibuprofen (MOTRIN) 100 MG/5ML oral suspensionJump to med 800 mg, Oral, EVERY 8 HOURS, First dose (after last modification) on Tue07/11/23 at 2000, Until Discontinued Group 3: oxyCODONE immediate release tabletJump to med 5 mg, Oral, EVERY 6 HOURS PRN, Starting on Tue07/11/23 at 1144, Until Discontinued, Pain (pain score 3-10) Or oxyCODONE (ROXICODONE) 5 mg/5 mL oral solutionJump to med 5 mg, Oral, EVERY 6 HOURS PRN, Starting on 07/11/23 at 1144, Until Discontinued, Pain (pain score 3-10) Scheduled Medication Order 07/14/2023 07/15/2023 07/16/2023 acetaminophen (TYLENOL) tablet (COMPLETED) 1,000 mg, Oral, ONCE, 1 dose, On 07/16/23 at 1550 1525 (Given - Provid er: Emily Gehri) ketorolac (TORADOL) 15 MG/ML injection (COMPLETED) 15 mg, Intravenous Push, ONCE, 1 dose, On 07/16/23 at 1550 1525 (Given - Provid er: Emily Gehri) metoclopramide (REGLAN) 5 MG/ML injection 10 mg, Intravenous Push, EVERY 6 HOURS, First dose on 07/16/23 at 1550, Until Discontinued 1525 (Given - Provid er: Emily Gehri)2150 (Due) sodium chloride 0.9 % iv bolus (COMPLETED) 1,000 mL, at 9,999 mL/hr, Intravenous, FLUID BOLUS, 1 dose, On 07/16/23 at 1635 1614 (IV New Bag - P rovider: Emily Gehri)1743 (IV Stop - Provider: Emelina Schwartz RN) Source Comments (unrecognize d section and content) In the event this informatio n is protected by the Federal Confidentiality of Alcohol and Drug Abuse Patient Records regulations: The Federal rules restrict any use of the information to criminally investigate or prosecute any alcohol or drug abuse patient.[facility] the event this information is protected by the Federal Confidentiality of Alcohol and Drug Abuse Patient Records regulations: The Federal rules restrict any use of the information to criminally investigate or prosecute any alcohol or drug abuse patient.[facility]In the event this information is protected by the Federal Confidentiality of Alcohol and Drug Abuse Patient Records regulations: The Federal rules restrict any use of the information to criminally investigate or prosecute any alcohol or drug abuse patient.[facility]In the event this information is protected by the Federal Confidentiality of Alcohol and Drug Abuse Patient Records regulations: The Federal rules restrict any use of the information to criminally investigate or prosecute any alcohol or drug abuse patient.[facility]In the event this information is protected by the Federal Confidentiality of Alcohol and Drug Abuse Patient Records regulations: The Federal rules restrict any use of the information to criminally investigate or prosecute any alcohol or drug abuse patient.[facility]In the event this information is protected by the Federal Confidentiality of Alcohol and Drug Abuse Patient Records regulations: The Federal rules restrict any use of the information to criminally investigate or prosecute any alcohol or drug abuse patient.[facility]In the event this information is protected by the Federal Confidentiality of Alcohol and Drug Abuse Patient Records regulations: The Federal rules restrict any use of the information to criminally investigate or prosecute any alcohol or drug abuse patient.[facility]In the event this information is protected by the Federal Confidentiality of Alcohol and Drug Abuse Patient Records regulations: The Federal rules restrict any use of the information to criminally investigate or prosecute any alcohol or drug abuse patient.[facility]In the event this information is protected by the Federal Confidentiality of Alcohol and Drug Abuse Patient Records regulations: The Federal rules restrict any use of the information to criminally investigate or prosecute any alcohol or drug abuse patient.[facility]In the event this information is protected by the Federal Confidentiality of Alcohol and Drug Abuse Patient Records regulations: The Federal rules restrict any use of the information to criminally investigate or prosecute any alcohol or drug abuse patient.[facility] HospitalIn the event this information is protected by the Federal Confidentiality of Alcohol and Drug Abuse Patient Records regulations: The Federal rules restrict any use of the information to criminally investigate or prosecute any alcohol or drug abuse patient.[facility] HospitalIn the event this information is protected by the Federal Confidentiality of Alcohol and Drug Abuse Patient Records regulations: The Federal rules restrict any use of the information to criminally investigate or prosecute any alcohol or drug abuse patient.[facility] HospitalIn the event this information is protected by the Federal Confidentiality of Alcohol and Drug Abuse Patient Records regulations: The Federal rules restrict any use of the information to criminally investigate or prosecute any alcohol or drug abuse patient.[facility]In the event this information is protected by the Federal Confidentiality of Alcohol and Drug Abuse Patient Records regulations: The Federal rules restrict any use of the information to criminally investigate or prosecute any alcohol or drug abuse patient.[facility]In the event this information is protected by the Federal Confidentiality of Alcohol and Drug Abuse Patient Records regulations: The Federal rules restrict any use of the information to criminally investigate or prosecute any alcohol or drug abuse patient.[facility] HospitalIn the event this information is protected by the Federal Confidentiality of Alcohol and Drug Abuse Patient Records regulations: The Federal rules restrict any use of the information to criminally investigate or prosecute any alcohol or drug abuse patient.[facility] HospitalIn the event this information is protected by the Federal Confidentiality of Alcohol and Drug Abuse Patient Records regulations: The Federal rules restrict any use of the information to criminally investigate or prosecute any alcohol or drug abuse patient.[facility] HospitalIn the event this information is protected by the Federal Confidentiality of Alcohol and Drug Abuse Patient Records regulations: The Federal rules restrict any use of the information to criminally investigate or prosecute any alcohol or drug abuse patient.[facility] HospitalIn the event this information is protected by the Federal Confidentiality of Alcohol and Drug Abuse Patient Records regulations: The Federal rules restrict any use of the information to criminally investigate or prosecute any alcohol or drug abuse patient.[facility] HospitalIn the event this information is protected by the Federal Confidentiality of Alcohol and Drug Abuse Patient Records regulations: The Federal rules restrict any use of the information to criminally investigate or prosecute any alcohol or drug abuse patient.[facility] HospitalIn the event this information is protected by the Federal Confidentiality of Alcohol and Drug Abuse Patient Records regulations: The Federal rules restrict any use of the information to criminally investigate or prosecute any alcohol or drug abuse patient.[facility] HospitalIn the event this information is protected by the Federal Confidentiality of Alcohol and Drug Abuse Patient Records regulations: The Federal rules restrict any use of the information to criminally investigate or prosecute any alcohol or drug abuse patient.[facility] HospitalIn the event this information is protected by the Federal Confidentiality of Alcohol and Drug Abuse Patient Records regulations: The Federal rules restrict any use of the information to criminally investigate or prosecute any alcohol or drug abuse patient.[facility] HospitalIn the event this information is protected by the Federal Confidentiality of Alcohol and Drug Abuse Patient Records regulations: The Federal rules restrict any use of the information to criminally investigate or prosecute any alcohol or drug abuse patient.[facility] HospitalIn the event this information is protected by the Federal Confidentiality of Alcohol and Drug Abuse Patient Records regulations: The Federal rules restrict any use of the information to criminally investigate or prosecute any alcohol or drug abuse patient.[facility] HospitalIn the event this information is protected by the Federal Confidentiality of Alcohol and Drug Abuse Patient Records regulations: The Federal rules restrict any use of the information to criminally investigate or prosecute any alcohol or drug abuse patient.[facility] HospitalIn the event this information is protected by the Federal Confidentiality of Alcohol and Drug Abuse Patient Records regulations: The Federal rules restrict any use of the information to criminally investigate or prosecute any alcohol or drug abuse patient.[facility] HospitalIn the event this information is protected by the Federal Confidentiality of Alcohol and Drug Abuse Patient Records regulations: The Federal rules restrict any use of the information to criminally investigate or prosecute any alcohol or drug abuse patient.[facility] FOR RECORDS PERTAINING TO PATIENTS WHO ARE OR HAVE BEEN ENROLLED IN A CHEMICAL DEPENDENCY/SUBSTANCEABUSE PROGRAM, SOME INFORMATION MAY BE OMITTED. This clinical summary was aggregated from multiple sources. Caution should be exercised in using it in the provision of clinical care. This summary normalizes information from multiple sources, and as a consequence, information in this document may materially change the coding, format and clinical context of patient data. In addition, data may be omitted in some cases. CLINICAL DECISIONS SHOULD BE BASED ON THE PRIMARY CLINICAL RECORDS. [facility] [employer] [facility]. provides no warranty or guarantee of the accuracy or completeness of information in this document.
[2024-11-16 22:31] VITALS: BMI 47.0
[2024-11-16 23:04] VITALS: BP 129/73; PULSE 87; RESP 18; TEMP 36.7; O2SAT 98
[2024-11-16 23:06] LABS: Hematocrit 34.7 % (37-47); Hemoglobin 11.6 g/dL (12.0-15.0); Immature Granulocytes Count 0.070 X10^3/uL (0.0-0.0); Mean Corp Hgb Conc 33.4 g/dL (32-36); Mean Corpuscular Volume 86.8 fL (81-99); Mean Platelet Vol. 12.7 fl (6.2-12.0); NRBC Flagged by Analyzer 0 % (0-5); Platelet Count 186 K/mm3 (150-450); RBC Distribution Width CV 14.1 % (11.6-14.6); RBC Distribution Width SD 44.8 fl (35.1-43.9); Red Blood Count 4.00 M/mm3 (4.2-5.4); White Blood Count 10.8 K/mm3 (4.4-11.0)
[2024-11-16 23:29] VITALS: BMI 20250905.0; BMI 2329.0
--- OUTSIDE RECORDS SUMMARY | 2024-11-16 23:30 | XMS RPT_ITS | CCD ---
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 [facility] Comment on above: Order Comment: Speci men Type: SWAB Ordering Facility: [facility] Address: [address] [place] [address] Performed By: #### T RVAMP, 31726-8 #### [facility] CLIA [id number] [address] [place] [address] [place] Scott 05-15-2024 CNPN Telephone (OBGYWM) WALTER ANDRADE ([id number]) 2000 F Date Time Provider Department 05/15/24 THEODORA DELUCA OBGYWSpencer During your visit today, we recorded the following information about you: Laurie Bueno RN 05/15/2024 11:56 AM Signed Patient 12w6d, here today for NT ultrasound and is asking for blood work to be added for [id number]. Order pended. ALEXEY Arora Karmon, MD 05/15/2024 11:58 AM Signed Filed Theodora Deluca MD Allergies As of Date: 05/15/2024 (No Known Allergies) Date Reviewed: 04/24/2024 Reviewed by: Dina Sanchez APRN.ALMOND PASTE MIXER - Fully Assessed Reason for Visit: Orders [681] Primary Visit Diagnosis:Supervision of high risk , antepartum [O09.90] Other Visit Diagnosis:BMI 40.0-44.9, adult (HCC) [Z68.41] Order(s):[id number] PLUS [SQMAT21] Order #: [id number] FUTURE Prescriptions as of 05/15/2024 - aspirin, [...] serum testosterone [R79.89] 10/20/2015 Encounter Status:Closed by JENNA HANDY on 05/15/24 Normal [facility] Examination level ultrasound on 05-15-2024 Indication First trimester anatomic survey, Maternal obesity, BMI >40 Impression The patient is referred for a first trimester anatomy scan including nuchal translucency measurement as clinically indicated. - Single, live, intrauterine . - Wheelwright rump length measurement is consistent with the [...] view: suboptimal 4-chamber view with color: suboptimal 3-zunwzq-wivshht view: suboptimal Abdominal cord insertion: normal Stomach: [...] Read By: Sakina Bernstein M.D. MATERNAL MEDICINE [facility] Radiology Study observation (narrative) [facility] HBV surface Ag Ser Qlon 03-0 HBV surface Ag Ql (S) Negative Normal Negative [facility] Comment on above: Order Comment: Speci men Type: SWAB Ordering Facility: [facility] Address: [address] [place] [address] Performed By: #### T AMBREEN, 12529-5 #### [facility] CLIA [id number] [address] [place] [address] [place] HCV Ab Ser Qlon 05-15-2024 HCV Ab Ql (S) Negative Normal Negative [facility] Comment on above: Order Comment: Speci men Type: BLOOD SPECIMENOrdering Facility: [facility] Address: [address] [place] [address] Result Comment: The result suggests no evidence of active infection with Hepatitis C virus. Should recent infection be suspected, repeat testing may be considered 4-6 weeks after this draw. Performed By: #### 1 6128-1 ####[facility] [id number] [place] [address] [place] HIV 1+2 Ab IA Qlon HIV 1 and 2 Ab IA.rapid Nom (S/P/Bld) Normal [facility] Comment on above: Order Comment: Speci men Type: SWAB Ordering Facility: [facility] Address: [address] [place] [address] Result Comment: Test not indicated. Performed By: #### Elmer CROOK, 87708-3 #### [facility] CLIA [id number] [address] [place] [address] [place] HIV 1+2 Ab+HIV1 p24 Ag IA Ql Non-Reactive Normal Nonreactive [facility] Comment on above: Order Comment: Speci men Type: SWAB Ordering Facility: [facility] Address: [address] [place] [address] Performed By: #### T AMBREEN, 30772-5 #### [facility] CLIA [id number] [address] [place] [address] [place] HIV immunoassay testing algorithm interpretation (S/P/Bld) [Interp] Normal [facility] Comment on above: Order Comment: Speci men Type: SWAB Ordering Facility: [facility] Address: [address] [place] [address] Result Comment: No e vidence of HIV-1 or HIV-2 infection. Should recent infection be suspected, repeat testing may be considered 2-3 weeks after this draw. [place] Rev. Code 3701.243(E): This information has been [...] or diagnoses. Performed By: #### T RVAMP, 17068-8 #### [facility] CLIA [id number] [address] [place], [place] [address] [address] [place] HbA1c (Bld)on 05-15-2024 Average glucose Estimated from glycated hemoglobin (Bld) [Mass/Vol] 94 mg/dL Normal [facility] Comment on above: Order Comment: Speci men Type: BLOOD SPECIMENOrdering Facility: [facility] Address: [address] [place] [address] Result Comment: eAG: (Estimated average glucose) is a calculated value from HgbA1c and is off premise service representative of the average blood glucose level in the last 2-3 month period. Performed By: #### 5 5454-3 ####[facility] [id number] [place] [address] [place] HbA1c (Bld) [Mass fraction] 4.9 % Normal 4.3-5.6 [facility] Comment on above: Order Comment: Speci men Type: BLOOD SPECIMENOrdering Facility: [facility] Address: [address] [place] [address] Result Comment: Amer [place] Diabetes Association guidelines indicate that patients with HgbA1c in the range 5.7-6.4% are at increased risk for development of diabetes, and intervention by lifestyle modification may be beneficial. HgbA1c greater or equal to 6.5% is considered diagnostic of diabetes. Performed By: #### 5 5454-3 ####[facility] [id number] [place] [address] [place] [id number] PLUSon 05-15-2024 Cell-free DNA./Cell-free DNA.total Dosage of chromosome-specific cfDNA (cfDNA) [Molar fraction] 13% Normal [facility] Comment on above: Order Comment: Speci men Type: SWAB Ordering Facility: [facility] Address: [address] [place] [address] Performed By: #### T RVAMP, 03611-1 #### [facility] CLIA [id number] [address] [place] [address] [place] Chr 13+18+21+X+Y aneuploidy Dosage of chromosome-specific cfDNA Ql (cfDNA) Negative Normal [facility] Comment on above: Order Comment: Speci men Type: SWAB Ordering Facility: [facility] Address: [address] [place] [address] Performed By: #### T RVAMP, 49848-9 #### [facility] CLIA [id number] [address] [place] [address] [place] Chr 21 trisomy Dosage of chromosome-specific cfDNA Ql (cfDNA) Negative Normal [facility] Comment on above: Order Comment: Speci men Type: SWAB Ordering Facility: [facility] Address: [address] [place] [address] Performed By: #### T RVAMP, 91819-2 #### [facility] CLIA [id number] [address] [place] [address] [place] Chr X and Y aneuploidy risk Sequencing Ql (cfDNA) [Interp] Not detected Normal [facility] Comment on above: Order Comment: Speci men Type: SWAB Ordering Facility: [facility] Address: [address] [place] [address] Result Comment: Not Detected Not Detected Performed By: #### T RVAMP, 42494-1 #### [facility] CLIA [id number] [address] [place] [address] [place] Citation Rigoberto (Reference lab test) Comment Normal [facility] Comment on above: Order Comment: Speci men Type: SWAB Ordering Facility: [facility] Address: [address] [place] [address] Result Comment: 1. P cruz ASIF, et al. Eunice Med. 2012;14(3):296-305. 2. Angela IRWIN et al. Prenat Diag. 2013;33(6):591-597. 3. Pavel C, et al. Clin Chem. 2015 Apr;61(4):608-616. 4. Cherie ASIF, et al. Eunice Med. 2011;13(11):913-920. 5. ACOG/SMFM Practice Bulletin No. 226, Dec 2019. Performed By: #### T RVAMP, 94862-4 #### [facility] CLIA [id number] [address] [place] [address] [place] Gestational age Estimated from conception date Davila Normal [facility] Comment on above: Order Comment: Speci men Type: SWAB Ordering Facility: [facility] Address: [address] [place] [address] Performed By: #### T RVAMP, 70225-1 #### [facility] CLIA [id number] [address] [place] [address] [place] GESTATIONALAGE AGE > OR = 9W Yes Normal [facility] Comment on above: Order Comment: Speci men Type: SWAB Ordering Facility: [facility] Address: [address] [place] [address] Performed By: #### T RVAMP, 03938-4 #### [facility] CLIA [id number] [address] [place] [address] [place] Laboratory comment Rigoberto (Report) Comment Normal [facility] Comment on above: Order Comment: Speci men Type: SWAB Ordering Facility: [facility] Address: [address] [place] [address] Result Comment: The MaterniT(R) 21 PLUS laboratory-developed test (LDT) analyzes circulating cell-free DNA from a maternal blood sample. This test is used for screening purposes and not diagnostic. Clinical correlation is recommended. Validation data on twin pregnancies is limited and the ability of this test to detect aneuploidy in higher multiple gestations has not yet been validated. Performed By: #### T RVAMP, 22708-2 #### [facility] CLIA [id number] [address] [place] [address] [place] director of communications name Nom (Provider) Comment Normal [facility] Comment on above: Order Comment: German bhardwaj Type: SWAB Ordering Facility: [facility] Address: [address] [place] [address] Result Comment: This specimen showed an expected representation of chromosome 21, 18 and 13 material. Clinical correlation is suggested. Comment Tal Jean Baptiste MD, PhD, Director, [employer] Performed By: #### T RVAMP, 86565-7 #### [facility] CLIA [id number] [address] [place] [address] [place] LIMITATIONS OF THE TEST Comment Normal [facility] Comment on above: Order Comment: German bhardwaj Type: SWAB Ordering Facility: [facility] Address: [address] [place] [address] Result Comment: Deejay ying the results of [...] and Fragmin(R)). Performed By: #### T RVAMP, 84367-7 #### [facility] [facility] CLIA [id number] [address] [place] [address] STATES OF [facility] Monosomy X risk Dosage of chromosome-specific cfDNA Ql (Plasma cell-free+WBC DNA) [Interp] Not detected Normal [facility] Comment on above: Order Comment: Speci men Type: SWAB Ordering Facility: [facility] Address: [address] [place] [address] Performed By: #### T RVAMP, 19569-2 #### [facility] CLIA [id number] [address] [place] [address] [place] NEGATIVE PREDICTIVE VALUE Note Normal [facility] Comment on above: Order Comment: German bhardwaj Type: SWAB Ordering Facility: [facility] Address: [address] [place] [address] Result Comment: The Negative Predictive Value (NPV) for trisomy 21, 18, and 13 is greater than 99%. The NPV for SCA and ESS cannot be calculated as SCA and ESS are only reported when an abnormality is detected. Performed By: #### T RVAMP, 42233-8 #### [facility] CLIA [id number] [address] [place] [id number] PERFORMANCE CHARACTERISTICS Note Normal [facility] Comment on above: Order Comment: German hbardwaj Type: SWAB Ordering Facility: [facility] Address: [address] [place] [address] Result Comment: ! Sex ! Accuracy: 99.4% [...] ! ! ! * As reported in [facility] database nstd37 [https://www.ncbi.nlm.nih.gov/dbvar/studies/nstd37/ ] # Estimated Sensitivity. Sensitivity estimated across the observed size distribution of each syndrome [per [facility] database nstd37] and across the range of fractions observed in routine clinical NIPT. Actual sensitivity can also be influenced by other factors such as the size of the event, total sequence counts, amplification bias, or sequence bias. ## Davila gestation only. Performed By: #### T CODIEAMP, 40735-2 #### [facility] CLIA [id number] [address] [place] [address] [place] POSITIVE PREDICTIVE VALUE N/A Normal [facility] Comment on above: Order Comment: Speci men Type: SWAB Ordering Facility: [facility] Address: [address] [place] [address] Performed By: #### T RVAMP, 84747-1 #### [facility] CLIA [id number] [address] [place] [address] [place] Reference Lab Test Method Comment Normal [facility] Comment on above: Order Comment: Speci men Type: SWAB Ordering Facility: [facility] Address: [address] [place] [address] Result Comment: See Notes Circulating cell-free DNA [...] and 22. Performed By: #### T AMBREEN, 15359-4 #### [facility] CLIA [id number] [address] [place] [address] [place] Service comment (Unsp spec) [Interp] Comment Normal [facility] Comment on above: Order Comment: Speci men Type: SWAB Ordering Facility: [facility] Address: [address] [place] [address] Result Comment: See Notes [employer] is a subsidiary of [employer], using the brand [employer]. This test was developed and its performance characteristics determined by [employer]. It has not been cleared or approved by the Food and Drug Administration. This laboratory is certified under the Clinical Laboratory Improvement Amendments (CLIA) as qualified to perform high complexity clinical laboratory testing and accredited by the College of [place] [employer] (CAP). If there is future clinical need for adding MaterniT GENOME testing, this specimen will be available until term. [facility] samples will not be retained beyond 60 days. [facility] patients will have to send a new sample for re-sequencing ([facility] Test Code: [id number]). Performed By: #### T AMBREEN, 02124-3 #### [facility] CLIA [id number] [address] [place] [address] [place] Sex Dosage of chromosome-specific cfDNA Nom (cfDNA) Comment Normal [facility] Comment on above: Order Comment: Speci men Type: SWAB Ordering Facility: [facility] Address: [address] [place] [address] Result Comment: Cons istent with Male Performed By: #### T RVAMP, 24991-8 #### [facility] CLIA [id number] [address] [place] [address] [place] Test performance information Rigoberto (Unsp spec) Comment Normal [facility] Comment on above: Order Comment: Speci men Type: SWAB Ordering Facility: [facility] Address: [address] [place] [address] Result Comment: The performance characteristics of the MaterniT(R) 21 PLUS laboratory-developed test (LDT) have been determined in a clinical validation study with women at increased risk for chromosomal aneuploidy.[1-4] Performed By: #### T RVAMP, 33931-3 #### [facility] CLIA [id number] [address] [place] [address] [place] Trisomy 13 risk Dosage of chromosome-specific cfDNA Ql (cfDNA) [Interp] Negative Normal [facility] Comment on above: Order Comment: Speci men Type: SWAB Ordering Facility: [facility] Address: [address] [place] [address] Performed By: #### T RVAMP, 00415-5 #### [facility] CLIA [id number] [address] [place] [address] [place] Trisomy 18 risk Dosage of chromosome-specific cfDNA Ql (Plasma cell-free+WBC DNA) [Interp] Negative Normal [facility] Comment on above: Order Comment: Speci men Type: SWAB Ordering Facility: [facility] Address: [address] [place] [address] Performed By: #### T RVAMP, 03724-7 #### [facility] CLIA [id number] [address] [place] [address] [place] RUBELLA IGG ANTIBODYon 05-15 RUBELLA IGG AB, QUAL Positive Normal Positive [facility] Comment on above: Order Comment: Speci men Type: BLOOD SPECIMENOrdering Facility: [facility] Address: [address] [place] [address] Result Comment: The result suggests recent or past exposure to Rubella virus or history of Rubella vaccination. Positive result may also be seen due to presence of passively-transferred antibodies. Please correlate with patient's history. Performed By: #### R UBIGG ####[facility] LAB[facility]IA [id number] [place] [address] [place] Reagin and Treponema pallidu m IgG and IgM [Interp]on 05-15-2024 T. pallidum IgG+IgM IA Ql (S) Non-Reactive Normal Nonreactive [facility] Comment on above: Order Comment: Speci men Type: SWAB Ordering Facility: [facility] Address: [address] [place] [address] Performed By: #### T RVAMP, 23916-5 #### [facility] CLIA [id number] [address] [place] [address] [place] Reagin+T pallidum IgG+IgM Se rPl-Impon 05-15-2024 Reagin and Treponema pallidum IgG and IgM [Interp] Cannot exclude recent Treponemal infection if specimen collected within 7-10 days after appearance of suspect lesions or 2-3 weeks after an exposure. Clinical correlation is required. Normal [facility] Comment on above: Order Comment: Speci men Type: SWAB Ordering Facility: [facility] Address: [address] [place] [address] Performed By: #### T RVAMP, 75251-1 #### [facility] CLIA [id number] [address] [place] [address] [place] TSH SerPl-aCncon 05-15-2024 TSH Qn 5.060 m[IU]/L High 0.270-4.200 [facility] Comment on above: Order Comment: Speci men Type: BLOOD SPECIMENOrdering Facility: [facility] Address: [address] [place] [address] Result Comment: If t he patient is , TSH reference range varies by gestational period: First Trimester (weeks 9-12): 0.180-2.990 mIU/L Second Trimester: 0.110-3.980 mIU/L Third Trimester: 0.480-4.710 mIU/L Colby Adame et al. A Practical Approach for the Verifications and Determination of Site- and Trimester-Specific Reference Intervals for Thyroid Function tests in . Thyroid, 2019:29:3:412-420. Ray Ying, et al. 2017 Guidelines of the [place] Thyroid Association for the Diagnosis and Management of Thyroid Disease during and the . Thyroid, 2017:27:3:315-389. Performed By: #### 3 016-3 ####[facility] [id number] [place] [address] [place] TYPE + SCREEN PRENATALon ABO A Normal [facility] Comment on above: Order Comment: Speci men Type: BLOOD SPECIMENOrdering Facility: [facility] Address: [address] [place] [address] Performed By: #### T SPN ####[facility] BANKCLIA [id number] [place] [address] [place] Rh Nom (Bld) Negative Normal [facility] Comment on above: Order Comment: Speci lashae Type: BLOOD SPECIMENOrdering Facility: [facility] Address: [address] [place] [address] Performed By: #### T SPN ####[facility] BLOOD BANKCLIA [id number] [place] [id number] [place] TYPE AND SCREEN EXPIRATION 05/18/2024 23:59 Normal [facility] Comment on above: Order Comment: Speci men Type: BLOOD SPECIMENOrdering Facility: [facility] Address: [address] [place] [address] Performed By: #### T SPN ####[facility] BLOOD BANKCLIA [id number] [place] [address] [place] Bacteria Ur Culton Bacteria identified Cx Nom (U) ORGANISM ID: 1 10,000 -<50,000 CFU/ml Normal urogenital isamar Streptococcus agalactiae (Group B streptococcus) was identified in this specimen, which is clinically relevant if the individual is . v Normal [facility] Comment on above: Performed By: #### 6 30-4 ####[facility] LAB[facility]IA [id number] [address] [place] C. trachomatis+N. gonorrhoea e DNA VISHNU+probe Ql (Unsp spec)on 04-24-2024 C. trachomatis rRNA VISHNU+probe Ql (Unsp spec) Not detected Normal Not detected [facility] Comment on above: Order Comment: Speci men Type: SWAB Ordering Facility: [facility] Address: [address] [place] [address] Performed By: #### T RVAMP, 35582-3 #### [facility] CLIA [id number] [address] [place] [address] N. gonorrhoeae rRNA VISHNU+probe Ql (Unsp spec) Not detected Normal Not detected [facility] Comment on above: Order Comment: Speci men Type: SWAB Ordering Facility: [facility] Address: [address] [place] [address] Performed By: #### T RVAMP, 19100-2 #### [facility] CLIA [id number] [address] [place] [address] [place] POC MALT LOADER ULTRASOUNDon 04-24-19 Indication Confirmation of intrauterine . [...] Read By: Dina Sanchez CNP MATERNAL MEDICINE [facility] Radiology Study observation (narrative) [facility] TRICHOMONAS VAGINALIS NAATon 04-24-2024 T. vaginalis DNA VISHNU+probe Ql (Unsp spec) Not detected Normal Not detected [facility] Comment on above: Order Comment: Speci men Type: SWAB Ordering Facility: [facility] Address: [address] [place] [address] Performed By: #### T RVAMP, 57341-1 #### [facility] CLIA [id number] [address] [place] [address] [place] [address] [place] Telephone Encounteron 2024 Tumbler Machine Operator Authentication Interface Message Text See 04/07 mychart encounter regarding this. Normal [facility] Telephone Encounteron 2024 Tumbler Machine Operator Authentication Interface Message Text See sep msg Normal [facility] Tele[facility] Encounteron 2024 Tumbler Machine Operator Authentication Interface Message Text Patient was identified [...] could have raised the level. Normal The [facility] Telephone Encounteron 2024 Tumbler Machine Operator Authentication Interface Message Text Attempted to call patient at listed number. Mailbox is full and cannot accept any messages at this time. Normal [facility] Telephone Encounteron 2024 Tumbler Machine Operator Authentication Interface Message Text Pt did not access [employer] message/ results/ please call TSH (thryoid function) 8.163 ASSUMING NO MISSED DOSES X 6W THEN -your dose needs to be INCREASED; current levothyroxine (SYNTHROID) 150 MCG new 175 mcg : rx sent ; recheck labs due in 6+ wks Adore Morales MD Written by Adore Morales MD on 03/24/2024 10:57 AM EST Normal [facility] Addendum Noteon 03-24-2024 Tumbler Machine Operator Authentication Interface Message Text Addended by: ADORE MORALES on: 03/24/2024 10:57 AM Modules accepted: Orders Normal [facility] Progress Noteson 03-24-2024 Tumbler Machine Operator Authentication Interface Message Text TSH (thryoid function) 8.163 ASSUMING NO MISSED DOSES X 6W THEN -your dose needs to be INCREASED; current levothyroxine (SYNTHROID) 150 MCG new 175 mcg : rx sent ; recheck labs due in 6+ wks Adore Morales MD Normal [facility] Patient Instructionson 03-23 Tumbler Machine Operator Authentication Interface Message Text Start vitamin Continue [...] My current schedule : Tuesday and Tuesday [facility] Tuesdayna Tuesday: Telephone and Video virtual appointments: available all day Online and general scheduling will NOT reflect my true availability MESSAGE ME THRU MYCHART IF NEEDED Please plan to get all REFILLS AT APPOINTMENTS TEST RESULTS :I will always send a detailed result note: Thank you for your patience .???*?*???.? ...???.???.???*?*? ??.? ...???.???.???*?*? ??.? ...???.???.???*?*? ??.? ...???.???.???*?*? ??.? ...???.???.???*?*? ??.? ...???.??? Normal [facility] Progress Noteson 03-23-2024 Tumbler Machine Operator Authentication Interface Message Text Identity was confirmed by verifying patient name and date of . Blood drawn for patient. Blood obtained from right arm, using 21 gauge butterfly. Patient denies discomfort, bleeding controlled, bandage applied. Site appears normal. During this visit the vaccine(s) was: Administered Provider received consent from patient/parent/patient off premise service representative for immunization(s) as ordered, questionnaire completed and VIS educational handouts reviewed with patient/parent/patient off premise service representative who denies contraindications Double identification of patient completed with patient/parent/patient off premise service representative using name and prior to administration, and patient tolerated immunization(s) administration without incident. Normal [facility] Tumbler Machine Operator Authentication Interface Message Text ?/ ???*?*???. Family Medicine /?*?*???.? ...???.???.???*?*? ?? / Adore Morales MD [facility] [address] [facility] [address] Chief Complaint Patient presents with Test Pt [...] My current schedule : Tuesday and Tuesday [facility] Tuesdayna Tuesday: Telephone and Video virtual appointments: [...] Prior to Visit Medication Sig Dispense Refill gqimbdq-ufwwemayepkqs-n affeine (Excedrin Extra Strength) 250-250-65 MG TABS [...] thy (more content not included)... Normal [facility] TSHon 03-23-2024 Interpretation and review of [...] to 5.180 uIU/mL Performed By: #### T [facility] #### [facility] [address] [place], [address] URINE HCG-IN OFFICEon 2024 HCG ( test) Ql (U) Positive Abnormal Negative [facility] Interpretation and review of laboratory results Abnormal [facility] Negative Internal Control Negative Negative [facility] Positive Internal Control Positive Positive [facility] Culture, Throaton 01-11-2024 Culture, Throat ORDER#: [id number] ORDERED BY: KAREN BRYAN SOURCE: Throat Throat COLLECTED: 01/11/24 14:35 ANTIBIOTICS AT JABIER.: RECEIVED : 01/11/24 20:02 Culture, Throat FINAL 01/14/24 08:16 Cult,Throat: Oral isamar, negative for Group A Strep and other beta Cult,Throat: hemolytic streptococci Performed at [address] [id number] ([phone] Normal [facility] Comment on above: Performed By: #### C XTHR #### [facility] [address] [place] [id number] Laboratory - Chemistry and C hemistry - challengeon 08-29-2023 TSH Qn 2.684 m[IU]/L [facility] Comment on above: Referance range for women as applicable: First Trimester: 0. 050 to 3.700 uIU/mL Second Trimester: 0. 310 to 4.350 uIU/mL Third Trimester: 0. 410 to 5.180 uIU/mL No Panel Informationon 08-28 Interpretation and review of laboratory results [facility] TSHon 08-29-2023 TSH 2.684 uIU/mL Normal 0.450-5.330 [facility] Comment on above: Result Comment: Refe tasha range for women as applicable: First Trimester: 0. 050 to 3.700 uIU/mL Second Trimester: 0. 310 to 4.350 uIU/mL Third Trimester: 0. 410 to 5.180 uIU/mL Performed By: #### T SH #### [facility] [address] [place] [address], [id number] Addendum Noteon 07-21-2023 Tumbler Machine Operator Authentication Interface Message Text Addended by: VICK KINCAID on: 07/21/2023 10:59 AM Modules accepted: Orders Normal [facility] Progress Noteson 07-21-2023 Tumbler Machine Operator Authentication Interface Message Text The patient underwent [...] exam. Addendum: 08/26/2023 TSH 2.684 Normal [facility] Patient Instructionson 07-19 Tumbler Machine Operator Authentication Interface Message Text Hpv #3 today Your headaches are improved since ER visit They are likely multifactorial including anesthesia, daily acetaminophen and ibuprofen, stopping vaping and daily marijuana Recommend stopping all umnb-jit-ujgoohh medications Continue to avoid a vaping nicotine: Quit. Recommend avoiding daily marijuana use Alert me if had headaches recur See ASSISTANT DIRECTOR OF SECURITY as planned ~~Dr Restrepo .?/ ./? ./ .???*?*???.? ...???.???.???*?*? ??.? ...???.??? Adore Morales MD .???*?*???.? ...???.???.???*?*? ??.? ...???.???.???*?*? ??.? ...???.???.???*?*? ??.? Thank you for your confidence and trust My current schedule : Tuesday and Tuesday [facility] Tuesday: Telephone and Video virtual appointments: available [...] any problems or questions, please call the [facility] line at [phone]. Normal [facility] Progress Noteson 07-20-2023 Tumbler Machine Operator Authentication Interface Message Text ..?/ Family Medicine ../?*?*???.? ...???.???.???*?*? ?? . / Adore Morales MD [facility] [address] [facility] [address] Chief Complaint Patient presents with ER follow-up [...] vaping and daily marijuana Recommend stopping all fzer-fdu-lwacmik medications Continue to avoid a vaping nicotine: Quit. Recommend avoiding daily marijuana use Alert me if had headaches recur See ASSISTANT DIRECTOR OF SECURITY as planned ~~Dr Restrepo .?/ ./? ./ .???*?*???.? ...???.???.???*?*? ??.? ...???.??? Adore Morales MD .???*?*???.? ...???.???.???*?*? ??.? ...???.???.???*?*? ??.? ...???.???.???*?*? ??.? Thank you for your confidence and trust My current schedule : Tuesday and Tuesday [facility] Tuesday: Telephone and Video virtual appointments: available [...] Physician (General Surgery) Kajal Khan RN as Diet Supervisor (Care Management) Current Outpatient Medications on File Prior to Visit Medication Sig Dispense Refill fgsgbdr-izdlwjypsczox-w affeine (Excedrin Extra Strength) 250-250-65 MG TABS [...] 2019 (more content not included)... Normal [facility] Tumbler Machine Operator Authentication Interface Message Text Identification was verified by patient verbalizing her name and date of . During this visit the vaccine(s) was: Administered Provider received consent from patient/parent/patient off premise service representative for immunization(s) as ordered, questionnaire completed and VIS educational handouts reviewed with patient/parent/patient off premise service representative who denies contraindications. Double identification of patient completed with patient/parent/patient off premise service representative using name and prior to administration, and patient tolerated immunization(s) administration without incident. Normal [facility] Telephone Encounteron 2023 Tumbler Machine Operator Authentication Interface Message Text Emergency/CDU-Observati on Room Follow Up Call Date and Reason for ED visit: 07/16/23 Headache Patient/Family contact reached: Yes Patient ID by name,address and . ID myself and role of Focusing Machine Operator Medical coverage: [facility] / Plan: [facility] MEDICAID HMO / Product Type: Medicaid HMO Current symptoms or concerns: Pt feeling better today No new symptoms Discharge AVS Instructions Reviewed: Yes Discharge Medications: None Has medication(s) been picked up from the pharmacy? N/a Recommendations for follow up: Pt to follow up with PCP Accepted Focusing Machine Operator's offer to schedule appt.? Yes Follow up Appointments: Future Appointments (next ) Provider Department Center 07/20/2023 4:20 PM (Arrive by 4:10 PM) Adore Morales MD 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 Referred to Senior Ui Ux Designer: No Barriers or Concerns:No Dental Care Screening: Have you been to the dentist within the year :NA If no, can I assist with making you an appointment: NA SDOH Reviewed:Yes Letter mailed:No Normal The [facility] BASIC METABOLIC PANELon 05-0 Anion gap [Moles/Vol] 15 mmol/L Normal 10-20 [facility] Comment on above: Performed By: #### M G, CH8 #### [facility] [address] [place] [address] [place] [address] Calcium [Mass/Vol] 10.7 mg/dL High 8.6-10.3 [facility] Comment on above: Performed By: #### M G, CH8 #### [facility] [address] [place] [address] [place] [address] Chloride [Moles/Vol] 101 mmol/L Normal 98-107 [facility] Comment on above: Performed By: #### M G, CH8 #### [facility] [address] [place] [address] [place] [address] CO2 [Moles/Vol] 25 mmol/L Normal 21-31 [facility] Comment on above: Performed By: #### Spencer Baker, CH8 #### [facility] [address] [place] [address] [place] [address] Creatinine [Mass/Vol] 0.81 mg/dL Normal 0.60-1.20 [facility] Comment on above: Performed By: #### Spencer Baker, CH8 #### [facility] [address] [place] [address] [place] [address] ESTIMATED GFR (CKD-EPI) 103 mL/min/1.73sqm Normal >=60 [...] Inclusion of Race in Diagnosing Kidney Disease. [place] Journal of Kidney Diseases 2021;79(2):268-88.e1. 2. N Engl J Med 1 Vol. 385 Issue 19 Pages 3051-6794 Performed By: #### M Samuel, CH8 #### [facility] [address] [place] [address] [place] [address] Glucose [Mass/Vol] 122 mg/dL High 74-109 [facility] Comment on above: Performed By: #### M Samuel, CH8 #### [facility] [address] [place] [address] [place] [address] Potassium [Moles/Vol] 4.2 mmol/L Normal 3.5-5.0 [facility] Comment on above: Performed By: #### Spencer Baker, CH8 #### [facility] [address] [place] [address] [place] [address] Sodium [Moles/Vol] 137 mmol/L Normal 136-145 [facility] Comment on above: Performed By: #### Spencer Baker, CH8 #### [facility] [address] [place] [address] [place] [address] Urea nitrogen [Mass/Vol] 13 mg/dL Normal 7-25 [facility] Comment on above: Performed By: #### Spencer Baker, CH8 #### [facility] [address] [place] [address] [place] [address] Basic metabolic 2000 panelOr dered By: Olivia Chinchilla on 07-16-2023 Anion gap [Moles/Vol] 15 mmol/L 10 - 20 Met [facility] Calcium [Mass/Vol] 10.7 mg/dL High 8.6 [...] Inclusion of Race in Diagnosing Kidney Disease. Belgian Journal of Kidney Diseases 2021;79(2):268-88.e1. 2. N Engl J Med 2020 Vol. 385 Issue 19 Pages 1357-9643 Glucose [Mass/Vol] 122 mg/dL High 74 - [...] above: Performed By: #### C BCDSAT ####[facility] [id number] [facility] , [id number] Basophils/100 WBC (Bld) 0.4 % Normal <=1.9 [facility] Comment on above: Performed By: #### C BCDSAT ####[facility] [id number] [facility] [place], [id number] Eosinophils (Bld) [#/Vol] 0.10 10*3/uL Normal 0.00-0.70 [facility] Comment on above: Performed By: #### C BCDSAT ####[facility] [id number] [facility] , [id number] Eosinophils/100 WBC (Bld) 1.0 % Normal 0.1-4.0 [facility] Comment on above: Performed By: #### C BCDSAT ####[facility] [id number] [place], [id number] Erythrocyte distribution width (RBC) [Ratio] 14.0 % Normal 11.5-14.5 [facility] Comment on above: Performed By: #### C BCDSAT ####[facility] [id number] [place] [id number] Hematocrit (Bld) [Volume fraction] 42.3 % Normal 36.0-46.0 [facility] Comment on above: Performed By: #### C BCDSAT ####[facility] [id number] [place], [id number] Hemoglobin (Bld) [Mass/Vol] 13.9 g/dL Normal 12.0-15.0 [facility] Comment on above: Performed By: #### C BCDSAT ####[facility] [id number] [place], [id number] Lymphocytes (Bld) [#/Vol] 2.90 10*3/uL Normal 1.00-4.80 [facility] Comment on above: Performed By: #### C BCDSAT ####[facility] [id number] [address] [place], [id number] Lymphocytes/100 WBC (Bld) 24.8 % Normal 24.0-44.0 [facility] Comment on above: Performed By: #### C BCDSAT ####[facility] [id number] [place], [id number] MCH (RBC) [Entitic mass] 28.1 pg Normal 26.0-34.0 [facility] Comment on above: Performed By: #### C BCDSAT ####[facility] [id number] [place], [id number] MCHC (RBC) [Mass/Vol] 32.9 g/dL Normal 32.0-35.9 [facility] Comment on above: Performed By: #### C BCDSAT ####[facility] [id number] [place], [id number] MCV (RBC) [Entitic vol] 85 fL Normal 80-100 [facility] Comment on above: Performed By: #### C BCDSAT ####[facility] [id number] [place], [id number] Monocytes (Bld) [#/Vol] 0.70 10*3/uL Normal 0.20-1.00 [facility] Comment on above: Performed By: #### C BCDSAT ####[facility] [id number] [place] , [id number] Monocytes/100 WBC (Bld) 5.7 % Normal 2.0-11.0 [facility] Comment on above: Performed By: #### C BCDSAT ####[facility] [id number] [place], [place] Neutrophils (Bld) [#/Vol] 7.90 10*3/uL Normal 1.50-8.00 [facility] Comment on above: Performed By: #### C BCDSAT ####[facility] [id number] [place], [id number] Neutrophils/100 WBC (Bld) 68.1 % Normal 31.0-76.0 [facility] Comment on above: Performed By: #### C BCDSAT ####[facility] [id number] [place] [place], [id number] Nucleated RBC (Bld) [#/Vol] 10*3/uL Normal [facility] Comment on above: Performed By: #### C BCDSAT ####[facility] [id number] [place], [id number] Nucleated RBC (Bld) [#/Vol] 0.01 10*3/uL Normal [facility] Comment on above: Performed By: #### C BCDSAT ####[facility] [id number] [place], [id number] Platelet mean volume (Bld) [Entitic vol] 10.1 fL Normal 7.5-11.2 [facility] Comment on above: Performed By: #### C BCDSAT ####[facility] [id number] [place] , [id number] Platelets (Bld) [#/Vol] 330 10*3/uL Normal 150-400 [facility] Comment on above: Performed By: #### C BCDSAT ####[facility] [id number] [address] [id number] RBC (Bld) [#/Vol] 4.96 10*6/uL Normal 4.00-5.20 [facility] Comment on above: Performed By: #### C BCDSAT ####[facility] [id number] [place] , [id number] WBC (Bld) [#/Vol] 11.7 10*3/uL High 4.5-11.5 [facility] Comment on above: Performed By: #### C BCDSAT ####[facility] [id number] [place] , [id number] ED Provider Noteson 07-16-19 Tumbler Machine Operator Authentication Interface Message Text EMERGENCY DEPARTMENT - VISIT NOTE ------- HISTORY OF PRESENT ILLNESS --- Chief Complaint Patient presents with Headache Pt presents to ed with migraine since Tuesday since surgery (thyroidectomy). Pt recv'd Excedrin but no detention relief. -vision changes, +photosensitive, -n/v/d, -fever, cills Bond Writer: not needed - patient preferred language is Citizen Of [place]. 23-year-old female presenting to the emergency room [...] No speech difficulty. She was seen in [facility] and was treated with Excedrin however was advised to return in the emergency room if CM did not improve. Denies that this is the worse headache of her life. Denies thunderclap onset. Reports that pain right now is 4/10. Excedrin migraine does help the pain however does not resolve completely. Denieshistory of migraines. History provided by: PatientLanguage fuel storage technician used: No REVIEW OF SYSTEMS Review of [...] t (more content not included)... Normal [facility] MAGNESIUMon 07-16-2023 Interpretation and review of laboratory results Normal [facility] Magnesium [Mass/Vol] 1.9 mg/dL 1.9 - 2 .7 mg/dL [facility] Magnesium [Mass/Vol] 1.9 mg/dL Normal 1.9-2.7 [facility] Comment on above: Performed By: #### M JERRICA Baker #### [facility] [address] [place] [address] [place] [address] Telephone Encounteron 2023 Tumbler Machine Operator Authentication Interface Message Text Situation: Caller states [...] treatment now. Caller states will go to [facility] ED. Stressed importance of getting medical attention as advised. Information sent to Surgeon and clinical pool as update. Thank you. Dina Bradley, RN, RN Normal [facility] Patient Instructionson 07-13 Tumbler Machine Operator Authentication Interface Message Text Acute nonintractable headache [...] any persistent or worsening symptoms. Normal [facility] Progress Noteson 07-14-2023 Tumbler Machine Operator Authentication Interface Message Text [facility] [...] Current Outpatient Medications Medication Sig Dispense Refill kkcnooz-eqfneoyfszdfs-l affeine (Excedrin Extra Strength) 250-250-65 MG TABS [...] u (more content not included)... Normal [facility] Telephone Encounteron 2023 Tumbler Machine Operator Authentication Interface Message Text NB ~~thank you ~~K Normal [facility] Tumbler Machine Operator Authentication Interface Message Text I spoke to [...] likely not related to surgery. Normal [facility] Tumbler Machine Operator Authentication Interface Message Text Situation: Headache post [...] it hurt? Right side of head by yazidi 2. ONSET: When did the headache start? [...] your last menstrual period? Denies Protocols used: Lecxfwtd-S-FB, Post-Op Symptoms and Kxostrlmu-S-UN Normal [facility] CALCIUMon 07-12-2023 Calcium [Mass/Vol] 9.3 mg/dL 8.6 - 10. 3 mg/dL [facility] Calcium [Mass/Vol] 9.3 mg/dL Normal 8.6-10.3 [facility] Comment on above: Performed By: #### C A MG #### [facility] [address] [place] [address], [phone] Care Plan Noteon 07-12-2023 Tumbler Machine Operator Authentication Interface Message Text Problem: Routine Care: [...] will be met Outcome: Progressing Normal [facility] MAGNESIUMon 07-12-2023 Magnesium [Mass/Vol] 2.0 mg/dL 1.9 - 2 .7 mg/dL [facility] Magnesium [Mass/Vol] 2.0 mg/dL Normal 1.9-2.7 [facility] Comment on above: Performed By: #### C A, MG ####[facility] [id number] [place], [phone] No Panel Informationon 07-11 Interpretation and review of laboratory results [facility] Progress Noteson 07-12-2023 Tumbler Machine Operator Authentication Interface Message Text SW/CM has reviewed [...] and interventions. Razia Alvarado RN BSN Inpatient Senior Java Web Application Developer Tuesday/Tuesday 8:00/ 4:30 Normal [facility] Anesthesia Postprocedure Richa luationon 07-11-2023 Tumbler Machine Operator Authentication Interface Message Text Anesthesia Postoperative Assessment: [...] EVENTS: No notable events documented. Normal [facility] Anesthesia Preprocedure Eval uationon 07-11-2023 Tumbler Machine Operator Authentication Interface Message Text ASA: 3 No history of anesthetic complications NPO status: Greater than 8 hours Past Medical History and Review of Systems Pulmonary (+) a smoker (daily THC, vapes) Dental - negative ROS Endo (+) obesity scene shifter (-) not Neuro/Psych (+) attention deficit hyperactivity [...] were discussed with the patient and/or legal off premise service representative. The risks, benefits and alternatives were reviewed. Questions regarding anesthesia were answered. Patient and/or legal off premise service representative knows such anesthetics and procedures may be performed by Resident physicians, Certified Anesthesiologist Assistants, or Certified Nurse Anesthetists under the supervision of a physician. The patient /or the patient's legal off premise service representative agree with the plan for anesthesia. MHPATFORM Normal [facility] Anesthesia Transfer Of Careo n 07-11-2023 Tumbler Machine Operator Authentication Interface Message Text Patient taken to [...] 20 gauge Right Forearm (Active) Site Assessment [facility] 07/11/23735 Infusion Status Port #1 Infusing;Patent 07/11/23735 Peripheral IV Access: 07/11/23752 20 gauge Left Forearm (Active) Site Assessment [facility] 07/11/23752 Infusion Status Port #1 Patent;Infusing [...] 07 Measured from: Lips 07/11/23740 Site Assessment [facility] 07/11/23 07 All non-working IVs have [...] report was received. DRU [place] Normal [facility] Blood Attestationon 07-11-19 Tumbler Machine Operator Authentication Interface Message Text Blood Attestation: ATTESTATION OF INFORMED CONSENT FOR BLOOD: The transfusion of blood and/or blood components were discussed with the patient and/or legal off premise service representative. The risks, benefits and alternatives were reviewed. Questions regarding blood transfusions were answered. The patient /or the patient's legal off premise service representative agree with the plan for transfusion of blood and/or blood components. 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, cervical approach Surgeon(s): Surgeon(s): Vick Kincaid MD Staff: Scrub: Magaly Pollack CST; Genaro Rodriguez CST Rugby League Footballer Nurse: Chris Doran Physician Visual Display Associate: Ninfa Prescott PA-C Snailer: Devin Ortega MD Anesthesia: General Anesthesiologist: Annia [...] Prescott PA-C 07/11/2023 10:35 AM Normal [facility] Care Plan Noteon 07-11-2023 Tumbler Machine Operator Authentication Interface Message Text Problem: Routine Care: [...] will be met Outcome: Progressing Normal [facility] Tumbler Machine Operator Authentication Interface Message Text Problem: Routine Care: [...] will be met Outcome: Progressing Normal [facility] OP Noteon 07-11-2023 Tumbler Machine Operator Authentication Interface Message Text Name: WALTER ANDRADE MR#: [id number] [facility]#: [id number] Date of Procedure: 07/11/2023 ATTENDING SURGEON: Vick Kincaid MD TABLE INSPECTOR: iNnfa Prescott PA-C PREOPERATIVE DIAGNOSIS: Bilateral nodular thyroid [...] were (more content not included)... Normal [facility] Progress Noteson 07-11-2023 Tumbler Machine Operator Authentication Interface Message Text Post-op check note [...] Ninfa Prescott PA-C 07/11/23 [facility] Pager# [phone] Normal [facility] URINE HCG-IN OFFICEOrdered [...] Resulting Agency Address Site ID: QPT Name: [employer] [facility] Address: [address] [facility], [address] [place] [phone] Director: Ashwin Benz MD [facility] VITAMIN D, 25-HYDROXYon 06-12 25-hydroxyvitamin D IA [Mass/Vol] 28 ng/mL Low 30 - 100 ng/mL [facility] Interpretation and review of laboratory results Abnormal [facility] Deficient : <20.0 ng /mL Insufficient : 20.0-29.9 ng/mL Sufficient : 30.0 - 100.0 ng/mL Potential Toxicity : >100.0 ng/mL [facility] AUTOIMMUNE MULTIPLEX PANELon 06-21-2023 Interpretation and review of laboratory results Normal [facility] Nuclear Ab IA Ql (S) Negative Negative [facility] ds DNA Reference Range: < or = to 4 IU/mL-Negative 5-9 IU/mL-Indeterminate > or = to 10 IU/mL-Positive A negative screen reflects the following tests as negative-dsDNA Antibody, SS-A Antibody, SS-B Antibody, Centromere Antibody, Posada Antibody, Posada/CAR SALESMAN Antibody, CAR SALESMAN Antibody, Scleroderma-70 Antibody, CHUNG-1 Antibody, Ribosomal P Antibody, Chromatin Antibody. [facility] Basic metabolic 2000 panelon 06-21-2023 Anion gap [Moles/Vol] 14 mmol/L 10 - 20 [facility] Calcium [Mass/Vol] 10.3 mg/dL 8.6 - 10. [...] Inclusion of Race in Diagnosing Kidney Disease. Belgian Journal of Kidney Diseases 202;79(2):268-88.e1. 2. N Engl J Med 2020 Vol. 385 Issue 19 Pages 5871-5495 Glucose [Mass/Vol] 90 mg/dL 74 - 109 [...] 06-21-2023 Cyclic citrullinated peptide IgG Qn U/mL [facility] - 3.0 U/mL [facility] Interpretation and review of laboratory results Normal [facility] Reference Range: Negative: < 3.0 U/mL Positive: > or = 3.0 U/mL [facility] ERYTHROCYTE SEDIMENTATION RA Francisco 06-21-2023 ESR (Bld) [Velocity] 14 mm/h [facility] Interpretation and review of laboratory results Normal [facility] HEPATIC FUNCTION PANELon Albumin [Mass/Vol] 4.3 g/dL 3.5 - 5.7 g/dL [facility] ALP [Catalytic activity/Vol] 76 U/L [facility] ALT [Catalytic activity/Vol] 14 U/L [facility] AST [Catalytic activity/Vol] 13 U/L [facility] Bilirubin [Mass/Vol] 0.3 mg/dL 0.3 - 1 .0 mg/dL [facility] Bilirubin.direct [Mass/Vol] 0.05 mg/dL 0.03 - 0.18 mg/dL [facility] Protein [Mass/Vol] 6.9 g/dL 6.0 - 8.3 g/dL [facility] Note updated referen ce ranges. [facility] No Panel Informationon 06-20 Interpretation and review of laboratory results Normal [facility] Interpretation and review of laboratory results Normal [facility] RHEUMATOID FACTORon 06-21-19 Rheumatoid factor Qn NINF [facility] STREPTOLYSIN O ANTIBODYon Streptolysin O Ab Qn NINF [facility] TSHon 06-21-2023 Interpretation and review of laboratory results Normal [facility] TSH Qn 4.435 m[IU]/L [facility] Comment on above: Referance range for women as applicable: First Trimester: 0. 050 to 3.700 uIU/mL Second Trimester: 0. 310 to 4.350 uIU/mL Third Trimester: 0. 410 to 5.180 uIU/mL [facility] URIC ACIDon 06-21-2023 Urate [Mass/Vol] 3.7 mg/dL 2.3 - 6.6 mg/dL [facility] Note updated referen ce ranges. [facility] VITAMIN B12 (CYANOCOBALAMIN) on 06-21-2023 Cobalamin (Vitamin B12) [Moles/Vol] 1534 pg/mL 300 - PINF pg/mL [facility] Interpretation and review of laboratory results Normal [facility] <152 pg/mL - Deficie nt 152 - 300 pg/mL- Insufficient >300 pg/mL - Sufficient [facility] No Panel Informationon 05-28 Miscellaneous Test Result See scanned report. [facility] Work Phone: Test Name Jamshid [facility] Work Phone: [facility] Work Phone: Laboratory - Specimen inform ationOrdered By: Jimmie Torres on 05-18-2023 Appearance (U) [facility] Work Phone: Color (U) [facility] Work Phone: No Panel InformationOrdered By: Jimmie Torres on 05-18-2023 Case Report Medical Cytology Rep ort Case: [id number] Authorizing Provider: Vick Kincaid, Collected: 05/13/2023 1216 Ordering Location: [facility] Surgery Received: 05/16/2023 0906 General Pathologist: Jimmie Torres MD Specimen: FNA Thyroid Nodule, left lobe, Afirma [facility] Work Phone: Clinical Information [facility] Work Phone: Diagnosis Comment i0ymdFJoGKWslORwJMFt M1x 3eUOli9U9xzznOY9myNxegS z8bQncFKIxofD1sIRvTOjuu 5jaQBC7u0exxqaeRKVfOZls Yn1guIShyDzuBiPvAQStWAl 8cJ27DOOedB7dyPWoVQk4YG BhcGVydzEyMjQwXHBhcGVya PC7GMLsYP4labakKCqxPYsr ENJxwcG8NUOrjQUdN4MeTLF gTB6zpajgXIP1LUpoWFRbJZ A5LhMzKMYyu7Tosdu8GuSop GFyZFxwbGFpblxmczIwIFNh mFVbRZAkwdYdMR54MIJmncA IRmkrlRSpeS1pHZH8gVRaWN Zzl2LaamlbkOZaUFHjwI6eU 8CiRGIspYPot2CwMKVtNJVx HRBpstM2GI8bpPseb4PwEHV ymN6wbQ1kgQFcaD== [facility] Work Phone: FNA Performed By Clinician [facility] Work Phone: Gross Description n3fbyXNgFVKwoDZhPLUv M1x 7nUWjz7T8gxajOI2tnKotpN b9hWzrQAPvbvC1eMHzZNshs 0dfKJI2e0cyhbfuQCDlRTko Bk7vyWOzrUhoAhOfPJElJXv 2nH64UUHdgT9ztJUrGNy9KZ BhcGVydzEyMjQwXHBhcGVya YS1CQQnIP6ihqnxHDtrHAzf BONoucV7CKNqaKYxZ3SoJXU gJT4lovxlPRI1GTgbJQZnTQ H7EiCjLUVwq0Dqdtd6ZtKdw GFyZFxwbGFpblxmczIwIDgg B52sKMJjEMFzA5DtxxVjBfJ 8NQUsD91mb4ueEab5RGBoHF P7SYcyENGig5s3xKZHBDGbv grse1som2Ltq4HphM8hUXQr YFLFeQLbEGJvSPPeFEV6UCa vGPFew0n0dTDMiVKiJTD6iK kaa9IfvA1sHflrQKI2 [facility] Work Phone: Volume [facility] Work Phone: [facility] Work Phone: RAPID STREP A W/CULTURE REFL EXOrdered By: Sid Trevino on 04-06-2023 Interpretation and review of laboratory results Normal [facility] S. pyogenes Ag Ql (Throat) Negative Negative [facility] Comment on above: Culture not performe d; one swab received. [facility] Laboratory - Specimen inform ationOrdered By: Phuong Hernández on 02-02-2023 Appearance (U) [facility] h Work Phone: Color (U) [facility] Work Phone: No Panel InformationOrdered By: Phuong Hernández on 02-02-2023 Case Report Medical Cytology Rep ort Case: [id number] Authorizing Provider: Vick Kincaid, Collected: 01/28/2023 1504 Ordering Location: [facility] Received: 01/31/2023 0910 General Surgery Pathologist: Phuong Hernández MD Specimen: FNA Thyroid Nodule, left lobe [facility] Work Phone: Clinical Information [facility] Work Phone: FNA Performed By Clinician [facility] Work Phone: Gross Description o4boiIFuFCLepKGgBMLj M1x 7hBVqj9U9nlmgAP5gsAiyeY j0uAbiPTDiscQ4zHHmGQvkh 4nyGQU7y6dvkcroLDZqGNdc Pj7yjVWjrJzxRuDlWBGmWOi 6oV20YVZyjK0elCNcKUf8AO BhcGVydzEyMjQwXHBhcGVya IF3CXBlKA7dtgwbSKaaFCnm DPGeqoM1OGIqrDJdY3UgGUC dVK8ejufuPGX5GOjlWXQbKK F6TpFaNMFay4Iujok2MfAnz GFyZFxwbGFpblxmczIwIDgg W54mOBMeWMKxW9GlxnCxDzE 4WPZzF69rd5igJuo1LRXmTB R2AAktRSQbs2b7nIYEVQXql skpb7hpa4Nqq1UyyF6vBFEr KNOWyWSdHNVwJNDjYPI4QVm bLOPuw8i2jOWIdGJrIYD3nG sne5DlyL8lLgghWUW6 [facility] Work Phone: Volume [facility] Work Phone: [facility] Work Phone: US Pelvis transabdominal and transvaginalon [...] free fluid or adnexal masses. MACRO: None [facility] Radiology Study observation (narrative) [facility] US Thyroid glandon EXAMINATION: US THYR [...] thyroid nodules (nodule #1, #2). MACRO: None [facility] Radiology Study observation (narrative) [facility] US Thyroid glandOrdered By: Mike Blue on 10-06-2022 [facility] Work Phone: Provider Note - ED v3on [...] up through someone's yard and into a [place]. Patient states she was wearing a belt. [...] SIGNS: T PRBP SpO2O2(LPM) %FiO2 Method 08-Aug-2022 12:44:[id number]/ 97 room air, no respiratory support 08-Aug-2022 12:39:[id number]/ 97 room air, no respiratory support DISPOSITION [...] From Triage - ED 08-Aug-2022 12:44 Normal [facility] Risk Screen - Adult Emergenc yon 08-08-2022 [...] material; verbal instruction Cultural Considerationsnone Developmental Considerationsnone Baptist Considerationsnone Learning Assessment (Other Learner): Learning Assessment [...] an injured patient at a Trauma Center ([facility]/[place]): no Electronic Signatures: Olivia Huddleston) (Signed 08-Aug-2022 13:16) Authored: Preferred Language, Patient Preferred Pharmacy, Advanced Directives, Family Violence Adult, Learning Assessment (Patient), Learning Assessment (Other Learner), Pressure Injury/TB/Substance, Pressure Injury, CAGE Last Updated: 08-Aug-2022 13:16 by Olivia Huddleston (RN) [facility] Triage - EDon 08-08-2022 Triage - ED Quick Triage: Are You no Have You Given In The Last 6 Weeksno Are You Currently Breastfeedingno The patient and/or guardian verbally acknowledges placement for services into the following (when Urgent Care Service hours are operating):emergency department Chart Review: ARRIVAL INFORMATION Mode of Arrival: ambulance Agency Name: [employer] CHIEF COMPLAINT WALTER ANDRADE is a Female [...] 08-Aug-2022 12:50 by Mami Epps (ALEXEY) Normal [facility] GC/CHLAMYDIA/TRICHOMONAS AMP LIFICATIONon 06-24-2022 C. trachomatis DNA VISHNU+probe Ql (Unsp spec) Negative Negative [facility] Interpretation and review of laboratory results Normal [facility] N. gonorrhoeae DNA VISHNU+probe Ql (Unsp spec) Negative Negative [facility] T. vaginalis DNA VISHNU+probe Ql (Unsp spec) Negative Negative [facility] This test is perform ed using an automated nucleic acid amplification assay ([employer] [facility] HERPES IGG TYPE 1/2, SERUMon 06-24-2022 HSV 1 IgG IA Ql Negative Negative [facility] th HSV 2 IgG IA Ql Negative Negative [facility] Interpretation and review of laboratory results Normal [facility] HIV 1 and 2 Ab and HIV 1 p24 Ag panel IAon 06-24-2022 HIV 1+2 Ab+HIV1 p24 Ag IA Ql Non-Reactive Non-Reactive [facility] Comment on above: No laboratory eviden ce for HIV Infection. Negative result does not rule out acute HIV infection. If acute HIV infection is suspected, recommend ordering an HIV-1 RNA quanitification test. Interpretation and review of laboratory results Normal [facility] HIV Information: [place] Rev. code 3701.243(E): This information has been [...] release of HIV test results or diagnoses. [facility] LUTEINIZING HORMONEon 2022 Interpretation and review of laboratory results Normal [facility] Lutropin Qn 5.20 m[IU]/mL [facility] Comment on above: Follicular phase: 1. 60 - 12.50 mIU/mL Luteal Phase: Not Detected - 16.90 mIU/mL Midcycle: 8.70 - 103.0 mIU/mL Post-menopausal: >15.60 mIU/mL Oral Contraceptives: Not Detected - 8.00 mIU/mL : <1.50 mIU/mL [facility] STREPTOLYSIN O ANTIBODYon Interpretation and review of laboratory results Normal [facility] Streptolysin O Ab Qn NINF [facility] SYPHILIS WITH CONFIRMATIONon 06-24-2022 T. pallidum Ab LA Qn (S) [facility] T. pallidum IgG+IgM IA Ql (S) Non-Reactive Non-Reactive [facility] No results found for : TPPA No components found for: FTA No serologic evidence of syphilis. If recent exposure/early infection is suspected, repeat testing in 2-4 weeks. [facility] URINE CULTUREOrdered By: Yon Cortes on 06-24-2022 Bacteria identified Cx Nom (U) 50,000 - 100,000 CFU/ml Multiple bacteria present suggesting contamination. [facility] Interpretation and review of laboratory results Normal [facility] IF clinically indicated, suggest appropriate recollection with timely delivery to the laboratory. For additional information, call ext [phone]. [facility] VITAMIN D, 25-HYDROXYon 06-12 25-hydroxyvitamin D IA [Mass/Vol] 22.0 ng/mL Low 30 - 100 ng/mL [facility] Interpretation and review of laboratory results Abnormal [facility] Basic metabolic 2000 panelon 06-23-2022 Anion gap [...] Inclusion of Race in Diagnosing Kidney Disease. [place] Journal of Kidney Diseases 202;79(2):268-88.e1. 2. N Engl J Med 1 Vol. 385 Issue 19 Pages 2450-0660 Glucose [Mass/Vol] 81 mg/dL 68 - 110 [...] [Mass/Vol] 33.8 g/dL 32.0 - 35.9 g/dL [facility] MCV (RBC) [Entitic vol] 86 fL 80 - 100 fL [facility] Platelet mean volume (Bld) [Entitic vol] 10.4 fL 7.5 - 11.2 fL [facility] Platelets (Bld) [#/Vol] 276 10*3/uL 150 - 400 K/uL [facility] RBC (Bld) [#/Vol] 4.64 10*6/uL [facility] WBC (Bld) [#/Vol] 8.2 10*3/uL 4.5 - 11.5 K/uL [facility] DEHYDROEPIANDROSTERONE SULFA [place] 06-23-2022 DHEA-S [Mass/Vol] 306.0 ug/dL 70.0 - 393 .0 ug/dL [facility] Interpretation and review of laboratory results Normal [facility] FSHon 06-23-2022 Follitropin Qn 5.8 m[IU]/mL [facility] Interpretation and review of laboratory results Normal [facility] Males: 1.5 to 18.1 mIU/L Menstruating Females: Follicular phase: 2.5 - 10.2 mIU/L Midcycle phase: 3.4 - 33.4 mIU/mL Luteal phase: 1.5 - 9.1 mIU/mL Post menopausal: 23.0 - 116.3 mIU/mL Oral Contraceptives: Not Detected - 5.8 mIU/mL [facility] HCV Ab IA Qn (S)on 3 HCV Ab Ql (S) Non-Reactive Nonreactive [facility] Interpretation and review of laboratory results Normal [facility] HEPATIC FUNCTION PANELon Albumin [Mass/Vol] 4.4 g/dL 3.4 - 5.1 g/dL [facility] ALP [Catalytic activity/Vol] 80 U/L [facility] ALT [Catalytic activity/Vol] 27 U/L [facility] AST [Catalytic activity/Vol] 19 U/L [facility] Bilirubin [Mass/Vol] 0.5 mg/dL 0.1 - 1 .5 mg/dL [facility] Bilirubin.direct [Mass/Vol] 0.10 mg/dL 0.10 - 0.30 mg/dL [facility] Protein [Mass/Vol] 7.3 g/dL 6.2 - 8.3 g/dL [facility] HEPATITIS B SURFACE ANTIGENo n 06-23-2022 HBV surface Ag Ql (S) Non-Reactive Non-Reactive [facility] Interpretation and review of laboratory results Normal [facility] Lipid 1996 panelon Cholesterol [Mass/Vol] 181 mg/dL NINF - 200 mg/dL [facility] Cholesterol in HDL [Mass/Vol] 71 mg/dL 54 - PINF mg/dL [facility] Cholesterol in LDL [Mass/Vol] 94 mg/dL NINF - 111 mg/dL [facility] Cholesterol in LDL/Cholesterol in HDL [Mass ratio] 1.32 {ratio} NINF - 3.57 [facility] Cholesterol non HDL [Mass/Vol] 110 mg/dL NINF - 130 mg/dL [facility] Cholesterol.total/Estrellita sterol in HDL [Mass ratio] 2.55 {ratio} NINF - 5.00 [facility] Triglyceride [Mass/Vol] 126 mg/dL NINF - 151 mg/dL [facility] No Panel Informationon 06-[address] [facility] Interpretation and review of laboratory results Normal [facility] PROLACTINon 06-23-2022 Prolactin [Mass/Vol] 4.1 ng/mL [facility] Comment on above: Non Females 2.80 - 29.20 ng/mL Females 9.70 - 208.50 ng/mL Postmenopausal Females 1.80 - 20.30 ng/mL SEX BINDING HORMONE (SHBG), TESTOSTERONE, FREE AND BIOAVAILABLEon 06-23-2022 Sex hormone binding globulin [Moles/Vol] 17.6 nmol/L [facility] Comment on above: Females: Normal Cycl in.2 - 135.7 nmol/L Post-menopausal: 16.8 - 106.9 nmol/L Testosterone [Mass/Vol] 61 ng/dL 20 - 70 ng/dL [facility] Testosterone Free [Mass/Vol] 1.5 ng/dL [facility] Comment on above: Females: Normal Cycl in.2 [...] 250 pg/mL Low 300 - PINF pg/mL [facility] Interpretation and review of laboratory results Abnormal [facility] <152 pg/mL - Deficie nt 152 - 300 pg/mL- Insufficient >300 pg/mL - Sufficient [facility] ALLIED HEALTHon 06-16-2020 ALLIED HEALTH HNO ID: [id number] Author: LITTLE Rojo (Ct) Service: Radiology Author Type: Clinical Meat Wrapper Type: Allied Health Filed: 06/16/2020 7:43 AM [...] LITTLE Rojo June 16, 2020 7:42 AM [facility] CT BRAIN WO IVCONon 06-17-[address] BRAIN WO IVCON * * *Final Report* * * DATE OF EXAM: Jun 16 2020 7:43AM [facility] [place] [facility] [place] BRAIN WO IVCON / [...] base and imaged soft tissues are unremarkable. Net Web Application Developer (topogram) images: No additional findings. IMPRESSION: No acute intracranial animal pathology teacher: PSCB Transcribe Date/Time: Jun 16 2020 7:54A Dictated by : COOPER ROLDAN MD This examination was interpreted and the report reviewed and electronically signed by: COOPER ROLDAN MD on Jun 16 2020 7:57AM EST [id number] [facility] ED NOTEon 06-16-2020 ED NOTE HNO ID: [id number] Author: Ángela KrishnanRn) ALEXEY Quintana Service: Nursing Author Type: Registered Nurse Type: ED Notes Filed: 06/18/2020 12:00 PM Note Text: Emergency Services: ED Call Back Questionnaire SERVICE DATE: 06/16/2020 Message left on pt voicemail. Unable to reach pt @ this time. SIGNATURE: Ángela Quintana RN PATIENT NAME: Walter Andrade DATE: June 18, 2020 TIME: 12:00 PM [facility] ED NOTE HNO ID: [id number] Author: Kassandra KrishnanRn) ALEXEY Barber Service: ? Author Type: Registered Nurse Type: ED Notes Filed: 06/16/2020 8:12 AM Note Text: Discharge instructions reviewed with patient via teachback. Pt awake and alert, respirations regular and unlabored. Pt verbalizes understanding. No further questions for this RN. [facility] ED NOTE HNO ID: [id number] Author: Arin KrishnanRn) ALEXEY Hamilton Service: ? Author Type: Registered Nurse Type: ED Notes Filed: 06/16/2020 7:19 AM Note Text: Pt presents to ED c/o pupils being unequal this morning when she got up. Pupils appear equal at this time. Pt denies headache or vision changes [facility] ED PROV NOTEon 06-16-2020 ED PROV NOTE HNO ID: [id number] Author: Deloris Vasquez MD Service: ? Author [...] Coordination: Coordination normal. Gait: Gait normal. Comments: Sqffnz-ly-leco test is normal Romberg is negative Psychiatric: [...] SIGNATURE: MD Deloris Farr MD 06/16/20 0806 [facility] US Thyroid/Parathyroidon US Thyroid/Parathyroid Patient [facility]: [id number]ound ACCESSION EXAM DATE/TIME PROCEDURE ORDERING PROVIDER [id number] 05/09/2020 11:00 EST US Parathyroid MYRTLE COBB D.O. CPT code 55654 Reason For Exam (US Parathyroid) Iodine-deficiency related [...] Transcribed Date and Time: 05/09/2020 3:59 Normal [facility] CBCon 03-24-2020 Erythrocyte distribution width (RBC) [Ratio] 13.4 % 11.5 - 14.5 % [place], [place] Hematocrit (Bld) [Volume fraction] 40.7 % 35 - 47 % [place] Hemoglobin (Bld) [Mass/Vol] 13.8 g/dL 11.7 - 16 g/dL [place] MCH (RBC) [Entitic mass] 29.5 pg 26 - 34 pg [place] MCHC (RBC) [Mass/Vol] 34.0 % 32 - 36 % [place], [place] MCV (RBC) [Entitic vol] 87.0 fL 79 - 98 fL [place] Platelet mean volume (Bld) [Entitic vol] 9.6 fL 7.4 - 10.4 fL [place] Platelets (Bld) [#/Vol] 255 10*3/uL 140 - 440 10*3/uL [place] RBC (Bld) [#/Vol] 4.68 10*6/uL 3.8 - 5.2 10*6/uL [place] WBC (Bld) [#/Vol] 9.6 10*3/uL 3.6 - 10.7 10*3/uL [facility] [place] [place] Test Performed by [facility], [address] , [place], [place] [address] [facility], [place] Comp Metabolic Panelon 03-24 Calcium [Mass/Vol] 9.8 mg/dL Normal 8.4-10.4 [facility] Comment on above: Performed By: #### C MP3, HEMOG, FT4M, TSH5 #### [facility] [address] [place] [address] ALP [Catalytic activity/Vol] 84 U/L Normal 38-126 [facility] Comment on above: Performed By: #### C MP3, HEMOG, FT4M, TSH5 #### [facility] [address] [place] [address] ALT [Catalytic activity/Vol] 18 U/L Normal 0-34 [facility] Comment on above: Result Comment: The ALT test is performed by an updated assay method. Please note that the reference intervals have been changed and are now sex specific. Performed By: #### C MP3, HEMOG, FT4M, TSH5 #### [facility] [address] [place] [address] Anion gap [Moles/Vol] 5 Normal [facility] Comment on above: Performed By: #### C MP3, HEMOG, FT4M, TSH5 #### [facility] [address] [place] [address] AST [Catalytic activity/Vol] 26 U/L Normal 15-46 [facility] Comment on above: Performed By: #### C MP3, HEMOG, FT4M, TSH5 #### [facility] [address] [place] [address] Bilirubin [Mass/Vol] 0.4 mg/dL Normal 0.2-1.3 [facility] Comment on above: Performed By: #### C MP3, HEMOG, FT4M, TSH5 #### [facility] [address] [place] [address] CO2 [Moles/Vol] 29 mmol/L Normal 22-30 [facility] Comment on above: Performed By: #### C MP3, HEMOG, FT4M, TSH5 #### [facility] [address] [place] [address] Creatinine [Mass/Vol] 0.69 mg/dL Normal 0.52-1.25 [facility] Comment on above: Performed By: #### C MP3, HEMOG, FT4M, TSH5 #### [facility] [address] [place] [address] GFR/1.73 sq M predicted among blacks MDRD (S/P/Bld) [Vol rate/Area] mL/min/{1.73_m2} Normal >60 [facility] Comment on above: Performed By: #### C MP3, HEMOG, FT4M, TSH5 #### [facility] [address] [place] [address] GFR/1.73 sq M predicted among non-blacks MDRD (S/P/Bld) [Vol rate/Area] mL/min/{1.73_m2} Normal >60 [facility] Comment on above: Result Comment: KDIG [...] #### C MP3, HEMOG, FT4M, TSH5 #### [facility] [address] [place] [address] Glucose [Mass/Vol] 85 mg/dL Normal 70-100 [facility] Comment on above: Performed By: #### C MP3, HEMOG, FT4M, TSH5 #### [facility] [address] [place] [address] Protein [Mass/Vol] 7.6 g/dL Normal 6.3-8.2 [facility] Comment on above: Performed By: #### C MP3, HEMOG, FT4M, TSH5 #### [facility] [address] [place] [address] Urea nitrogen [Mass/Vol] 11 mg/dL Normal 7-20 [facility] Comment on above: Performed By: #### C MP3, HEMOG, FT4M, TSH5 #### [facility] [address] [place] [address] Albumin [Mass/Vol] 4.7 g/dL Normal 3.5-5.0 [facility] Comment on above: Performed By: #### C MP3, HEMOG, FT4M, TSH5 #### [facility] [address] [place] [address] Chloride [Moles/Vol] 102 mmol/L Normal 98-107 [facility] Comment on above: Performed By: #### C MP3, HEMOG, FT4M, TSH5 #### [facility] [address] [place] [address] Sodium [Moles/Vol] 137 mmol/L Normal 135-145 [facility] Comment on above: Performed By: #### C MP3, HEMOG, FT4M, TSH5 #### [facility] [address] [place] [address] Potassium [Moles/Vol] 4.3 mmol/L Normal 3.5-5.1 [place] Comment on above: Performed By: #### C MP3, HEMOG, FT4M, TSH5 #### [facility] [address] [place] [address] Comprehensive Metabolic Pane shruthi 03-24-2020 Albumin [Mass/Vol] 4.7 g/dL 3.5 - 5 g/dL [place], [place] ALP [Catalytic activity/Vol] 84 U/L 38 - 126 U/L [place] ALT [Catalytic activity/Vol] 18 U/L 0 - 34 U/L [place] Comment on above: The ALT test is perf ormed by an updated assay method. Please note that the reference intervals have been changed and are now sex specific. Anion gap [Moles/Vol] 5 mmol/L [place] AST [Catalytic activity/Vol] 26 U/L 15 - 46 U/L [place] Bilirubin Ql (U) 0.4 mg/dL 0.2 - 1.3 mg/dL [place] Calcium [Mass/Vol] 9.8 mg/dL 8.4 - 10. 4 mg/dL [place] Chloride [Moles/Vol] 102 mmol/L 98 - 10 7 mmol/L [place] CO2 [Moles/Vol] 29 mmol/L 22 - 30 mmol/L [place] Creatinine [Mass/Vol] 0.69 mg/dL 0.52 - 1.25 mg/dL [place] EGFR IF NonAfrican [place] >90.0 >60 mL/min [place] Comment on above: KDIGO guidelines pro [...] MDRD (S/P/Bld) [Vol rate/Area] mL/min/{1.73_m2} >60 mL/min [place] Glucose [Mass/Vol] 85 mg/dL 70 - 100 mg/dL [place] Protein [Mass/Vol] 7.6 g/dL 6.3 - 8.2 g/dL [place] Sodium [Moles/Vol] 137 mmol/L 135 - 145 mmol/L [place] Urea nitrogen [Mass/Vol] 11 mg/dL 7 - 20 mg/dL [place] Test Performed by [facility], [address] , [place], [place] [address] [place] [address] Free T4on 03-24-2020 Free T4 [Mass/Vol] 0.92 ng/dL Normal 0.78-2.19 [facility] Comment on above: Performed By: #### C MP3, HEMOG, FT4M, TSH5 #### [facility] [address] [place] [address] Hemogramon 03-24-2020 Erythrocyte distribution width (RBC) [Ratio] 13.4 % Normal 11.5-14.5 [facility] Comment on above: Performed By: #### C MP3, HEMOG, FT4M, TSH5 #### [facility] [address] [place] [address] Hematocrit (Bld) [Volume fraction] 40.7 % Normal 35.0-47.0 [facility] Comment on above: Performed By: #### C MP3, HEMOG, FT4M, TSH5 #### [facility] [address] [place] [address] Hemoglobin (Bld) [Mass/Vol] 13.8 g/dL Normal 11.7-16.0 [facility] Comment on above: Performed By: #### C MP3, HEMOG, FT4M, TSH5 #### [facility] [address] [place] [address] MCH (RBC) [Entitic mass] 29.5 pg Normal 26.0-34.0 [facility] Comment on above: Performed By: #### C MP3, HEMOG, FT4M, TSH5 #### [facility] [address] [place] [address] MCHC (RBC) [Mass/Vol] 34.0 % Normal 32.0-36.0 [facility] Comment on above: Performed By: #### C MP3, HEMOG, FT4M, TSH5 #### [facility] [address] [place] [address] MCV (RBC) [Entitic vol] 87.0 fL Normal 79.0-98.0 [facility] Comment on above: Performed By: #### C MP3, HEMOG, FT4M, TSH5 #### [facility] [address] [place] [address] Platelet mean volume (Bld) [Entitic vol] 9.6 fL Normal 7.4-10.4 [facility] Comment on above: Performed By: #### C MP3, HEMOG, FT4M, TSH5 #### [facility] [address] [place] [address] Platelets (Bld) [#/Vol] 255 10*3/uL Normal 140-440 [facility] Comment on above: Performed By: #### C MP3, HEMOG, FT4M, TSH5 #### [facility] [address] [place] [address] RBC (Bld) [#/Vol] 4.68 10*6/uL Normal 3.80-5.20 [facility] Comment on above: Performed By: #### C MP3, HEMOG, FT4M, TSH5 #### [facility] [address] [place] [address] WBC (Bld) [#/Vol] 9.6 10*3/uL Normal 3.6-10.7 [facility] Comment on above: Performed By: #### C MP3, HEMOG, FT4M, TSH5 #### [facility] [address] [place] [address] T4, Freeon 03-24-2020 Free T4 [Mass/Vol] 0.92 ng/dL 0.78 - 2. 19 ng/dL [facility], [place] Test Performed by [facility], [address] , [place], [place] [address] [place] [address], [place] TSH without Reflexon 021 TSH Qn 1.268 u[IU]/mL 0.465 - 4.68 u[IU]/mL [place], [place] Test Performed by [facility], [address] , [place], [place] [address] [facility] Thy[facility] Stim. Hormoneon 03-14 Thyroid Stim. Hormone 1.268 u[IU]/mL Normal 0.465-4.68 0 [facility] Comment on above: Performed By: #### C MP3, HEMOG, FT4M, TSH5 #### [facility] [address] [place] [address] DISCHARGE SUMMARYon 06-03-19 18 DISCHARGE SUMMARY [address] [address] DISCHARGE SUMMARYPATIENT NAME: WALTER ANDRADE : 2000MED REC NO: [id number] ROOM: [address] [place] [address] NO: [id number] ADMIT DATE: 05/30/2017PROVIDER: Juan Regan DISCH DATE:HISTORY OF PRESENTING ILLNESS AND REASON FOR CURRENT ADMISSION: Thepatient is a 17-year-old female, feeling depressed and sad, having suicidalthoughts, and had several plans to kill herself. With this, she was[facility] [place].PAST PSYCHIATRIC HISTORY: History of major depressive disorder [...] and herpsychiatrist.MYRON HORAN INDURTID: 06/02/2017 18:36:36 [id number]#: [id number] Doc#: [id number]: Normal [facility] Hemoglobin A1Con 05-31-2017 Glucose mass conc 103 mg/dL Normal [facility] Comment on above: Result Comment: The ADA and AACC recommend providing the estimated average glucose result to permit better patient understanding of their HBA1c result[place] [address] Performed By: #### C DP, HCG, CP, LIPR, TSH ####[address] [address] #### PROL, FT3, T4, GLYHGB ####[address] [address] Hemoglobin A1c/Hemoglobin.total mass fraction (Bld) 5.2 % Normal 4.0-6.0 [facility] Comment on above: Performed By: #### C DP, HCG, CP, LIPR, TSH ####[address] [address] #### PROL, FT3, T4, GLYHGB ####[address] [address] Prolactinon 05-31-2017 Prolactin 13.39 ug/L Normal 4.79-23.30 [facility] Comment on above: Result Comment: The presence of macroprolactin may cause interference in female patients with various endocrinological diseases or during .Performed at [address] [address] Performed By: #### C DP, HCG, CP, LIPR, TSH ####[address] [address] #### PROL, FT3, T4, GLYHGB ####[address] [address] T3, Freeon 05-31-2017 Triiodothyronine (T3) free 3.44 pg/mL Normal 2.02-4.43 [facility] Comment on above: Result Comment: Perf ormed at [address] [address] Performed By: #### C DP, HCG, CP, LIPR, TSH ####[address] [address] #### PROL, FT3, T4, GLYHGB ####[address] [address] Thyroxine T4on 05-31-2017 Thyroxine (T4) 8.2 ug/dL Normal 4.5-12.0 [facility] Comment on above: Result Comment: Perf ormed at [address] [address] Performed By: #### C DP, HCG, CP, LIPR, TSH ####[address] [address] #### PROL, FT3, T4, GLYHGB ####[address] [address] CBC with Diffon 05-30-2017 Abs. Basophil 0.00 k/uL Normal 0.0-0.2 [facility] Comment on above: Result Comment: Perf ormed at [facility] [address] [place] [address] Performed By: #### C DP, HCG, CP, LIPR, TSH ####[facility] [place] [address] #### PROL, FT3, T4, GLYHGB ####[address] [address] Abs.Neutrophil (Seg) 4.90 k/uL Normal 1.3-9.1 [facility] Comment on above: Performed By: #### C DP, HCG, CP, LIPR, TSH ####[facility] [place] [address] #### PROL, FT3, T4, GLYHGB ####[address] [address] Basophils/100 WBC Auto (Bld) 0 % Normal 0-2 [facility] Comment on above: Performed By: #### C DP, HCG, CP, LIPR, TSH ####[address] [address] #### PROL, FT3, T4, GLYHGB ####[address] [address] Eosinophils 0.20 10*3/uL Normal 0.0-0.4 [facility] Comment on above: Performed By: #### C DP, HCG, CP, LIPR, TSH ####[address] [address] #### PROL, FT3, T4, GLYHGB ####[address] [address] Eosinophils/100 leukocytes 2 % Normal 0-4 [facility] Comment on above: Performed By: #### C DP, HCG, CP, LIPR, TSH ####[address] [address] #### PROL, FT3, T4, GLYHGB ####[address] [address] Erythrocyte distribution width Auto Ratio (RBC) 15.3 % High 11.5-14.9 [facility] Comment on above: Performed By: #### C DP, HCG, CP, LIPR, TSH ####[address] [address] #### PROL, FT3, T4, GLYHGB ####[address] [address] Erythrocytes (RBC) 4.79 10*6/uL Normal 4.0-5.2 [facility] Comment on above: Performed By: #### C DP, HCG, CP, LIPR, TSH ####[address] [address] #### PROL, FT3, T4, GLYHGB ####[address] [address] Hematocrit (HCT) 40.2 % Normal 36-46 [facility] Comment on above: Performed By: #### C DP, HCG, CP, LIPR, TSH ####[address] [address] #### PROL, FT3, T4, GLYHGB ####[address] [address] Hemoglobin mass conc (Bld) 13.4 g/dL Normal 12.0-16.0 [facility] Comment on above: Performed By: #### C DP, HCG, CP, LIPR, TSH ####[address] [address] #### PROL, FT3, T4, GLYHGB ####[address] [address] Lymphocytes 2.70 10*3/uL Normal 1.2-5.2 [facility] Comment on above: Performed By: #### C DP, HCG, CP, LIPR, TSH ####[address] [address] #### PROL, FT3, T4, GLYHGB ####[address] [address] Lymphocytes/100 leukocytes 32 % Normal 25-45 [facility] Comment on above: Performed By: #### C DP, HCG, CP, LIPR, TSH ####[address] [address] #### PROL, FT3, T4, GLYHGB ####[address] [address] MCH 28.0 pg Normal 26-34 [facility] Comment on above: Performed By: #### C DP, HCG, CP, LIPR, TSH ####[address] [address] #### PROL, FT3, T4, GLYHGB ####[address] [address] MCHC mass conc (RBC) 33.3 g/dL Normal 31-37 [facility] Comment on above: Performed By: #### C DP, HCG, CP, LIPR, TSH ####[address] [address] #### PROL, FT3, T4, GLYHGB ####[address] [address] MCV 83.9 fL Normal 80-100 [facility] Comment on above: Performed By: #### C DP, HCG, CP, LIPR, TSH ####[address] [place] [address] #### PROL, FT3, T4, GLYHGB ####[address] [address] Monocytes 0.60 10*3/uL Normal 0.1-1.3 [facility] Comment on above: Performed By: #### C DP, HCG, CP, LIPR, TSH ####[address] [address] #### PROL, FT3, T4, GLYHGB ####[address] [address] Monocytes/100 leukocytes 7 % Normal 2-8 [facility] Comment on above: Performed By: #### C DP, HCG, CP, LIPR, TSH ####[address] [address] #### PROL, FT3, T4, GLYHGB ####[address] [address] Neutrophil (Seg) 59 % Normal 34-64 [facility] Comment on above: Performed By: #### C DP, HCG, CP, LIPR, TSH ####[address] [address] #### PROL, FT3, T4, GLYHGB ####[address] [address] Platelet mean volume (PMV) 9.7 fL Normal 6.0-12.0 [facility] Comment on above: Performed By: #### C DP, HCG, CP, LIPR, TSH ####[address] [address] #### PROL, FT3, T4, GLYHGB ####[address] [address] Platelets 294 10*3/uL Normal 150-450 [facility] Comment on above: Performed By: #### C DP, HCG, CP, LIPR, TSH ####[address] [address] #### PROL, FT3, T4, GLYHGB ####[address] [address] WBC (Leukocytes) 8.4 10*3/uL Normal 4.5-13.5 [facility] Comment on above: Performed By: #### C DP, HCG, CP, LIPR, TSH ####[address] [address] #### PROL, FT3, T4, GLYHGB ####[address] [address] Auto Diff Performed NOT REPORTED Normal [facility] Comment on above: Performed By: #### C DP, HCG, CP, LIPR, TSH ####[address] [address] #### PROL, FT3, T4, GLYHGB ####[address] [address] Erythrocyte morphology NOT REPORTED Normal [facility] Comment on above: Performed By: #### C DP, HCG, CP, LIPR, TSH ####[address] [address] #### PROL, FT3, T4, GLYHGB ####[address] [place] [address] Erythrocytes (RBC) NOT REPORTED Normal [facility] Comment on above: Performed By: #### C DP, HCG, CP, LIPR, TSH ####[address] [address] #### PROL, FT3, T4, GLYHGB ####[address] [address] Granulocytes/100 WBC (Bld) NOT REPORTED Normal 0.00-0.30 [facility] Comment on above: Performed By: #### C DP, HCG, CP, LIPR, TSH ####[address] [address] #### PROL, FT3, T4, GLYHGB ####[address] [address] Immature granulocytes #/vol (Bld) NOT REPORTED Normal 0 [facility] Comment on above: Performed By: #### C DP, HCG, CP, LIPR, TSH ####[address] [address] #### PROL, FT3, T4, GLYHGB ####[address] [address] Platelets NOT REPORTED Normal [facility] Comment on above: Performed By: #### C DP, HCG, CP, LIPR, TSH ####[address] [address] #### PROL, FT3, T4, GLYHGB ####[address] [address] WBC Morphology NOT REPORTED Normal [facility] Comment on above: Performed By: #### C DP, HCG, CP, LIPR, TSH ####[address] [place] [address] #### PROL, FT3, T4, GLYHGB ####[address] [place] [address] Comp Metabolic Profon 2017 (cont.) Normal [facility] Comment on above: Result Comment: Aver age GFR for <20 years old not available.Chronic Kidney Disease: <60 mL/min/1.73sq mKidney failure: <15 mL/min/1.73sq meGFR calculated using average adult body mass. Additional eGFR calculator available at:http://[email or web address]_crcl_2011.htmPerformed at [facility] [address] [place] [address] Performed By: #### C DP, HCG, CP, LIPR, TSH ####[address] [address] #### PROL, FT3, T4, GLYHGB ####[address] [place] [address] Alanine aminotransferase (ALT) 13 U/L Normal 5-33 [facility] Comment on above: Performed By: #### C DP, HCG, CP, LIPR, TSH ####[facility] [place] [address] #### PROL, FT3, T4, GLYHGB ####[facility] [address] [place] [address] Albumin 4.6 g/dL Normal 3.5-5.2 [facility] Comment on above: Performed By: #### C DP, HCG, CP, LIPR, TSH ####[address] [address] #### PROL, FT3, T4, GLYHGB ####[facility] [address] [place] [address] Alkaline Phos 82 U/L Normal 35-104 [facility] Comment on above: Performed By: #### C DP, HCG, CP, LIPR, TSH ####[facility] [place] [address] #### PROL, FT3, T4, GLYHGB ####[address] [address] Anion gap 14 mmol/L Normal 9-17 [facility] Comment on above: Performed By: #### C DP, HCG, CP, LIPR, TSH ####[facility] [place] [address] #### PROL, FT3, T4, GLYHGB ####[address] [address] Aspartate aminotransferase (AST) 16 U/L Normal <32 [facility] Comment on above: Performed By: #### C DP, HCG, CP, LIPR, TSH ####[address] [address] #### PROL, FT3, T4, GLYHGB ####[address] [address] Bilirubin Ql (U) 0.29 mg/dL Low 0.3-1.2 [facility] Comment on above: Performed By: #### C DP, HCG, CP, LIPR, TSH ####[facility] [place] [address] #### PROL, FT3, T4, GLYHGB ####[address] [address] Calcium 9.8 mg/dL Normal 8.6-10.4 [facility] Comment on above: Performed By: #### C DP, HCG, CP, LIPR, TSH ####[address] [address] #### PROL, FT3, T4, GLYHGB ####[address] [address] Chloride 101 mmol/L Normal 98-107 [facility] Comment on above: Performed By: #### C DP, HCG, CP, LIPR, TSH ####[address] [address] #### PROL, FT3, T4, GLYHGB ####[address] [address] CO2 24 mmol/L Normal 20-31 [facility] Comment on above: Performed By: #### C DP, HCG, CP, LIPR, TSH ####[address] [address] #### PROL, FT3, T4, GLYHGB ####[address] [address] Creatinine 0.53 mg/dL Normal 0.50-0.90 [facility] Comment on above: Performed By: #### C DP, HCG, CP, LIPR, TSH ####[address] [address] #### PROL, FT3, T4, GLYHGB ####[address] [address] eGFR (non-black) Pediatric GFR requir es additional information. Refer to NKDEP website for Normal >60 [facility] Comment on above: Result Comment: calc ulator. Performed By: #### C DP, HCG, CP, LIPR, TSH ####[address] [address] #### PROL, FT3, T4, GLYHGB ####[facility] [place] [address] Glucose mass conc 82 mg/dL Normal 70-99 [facility] Comment on above: Performed By: #### C DP, HCG, CP, LIPR, TSH ####[facility] [place] [address] #### PROL, FT3, T4, GLYHGB ####[address] [address] Potassium molar conc 4.1 mmol/L Normal 3.7-5.3 [facility] Comment on above: Performed By: #### C DP, HCG, CP, LIPR, TSH ####[address] [address] #### PROL, FT3, T4, GLYHGB ####[address] [address] Protein 7.8 g/dL Normal 6.4-8.3 [facility] Comment on above: Performed By: #### C DP, HCG, CP, LIPR, TSH ####[facility] [place] [address] #### PROL, FT3, T4, GLYHGB ####[address] [address] Sodium 139 mmol/L Normal 135-144 [facility] Comment on above: Performed By: #### C DP, HCG, CP, LIPR, TSH ####[address] [address] #### PROL, FT3, T4, GLYHGB ####[address] [address] Urea nitrogen 7 mg/dL Normal 6-20 [facility] Comment on above: Performed By: #### C DP, HCG, CP, LIPR, TSH ####[address] [address] #### PROL, FT3, T4, GLYHGB ####[address] [place] [address] Albumin/Globulin Ratio NOT REPORTED Normal 1.0-2.5 [facility] Comment on above: Performed By: #### C DP, HCG, CP, LIPR, TSH ####[address] [address] #### PROL, FT3, T4, GLYHGB ####[address] [address] BUN/CRE Ratio NOT REPORTED Normal 9-20 [facility] Comment on above: Performed By: #### C DP, HCG, CP, LIPR, TSH ####[address] [address] #### PROL, FT3, T4, GLYHGB ####[address] [address] eGFR (non-black) NOT REPORTED Normal >60 [facility] Comment on above: Performed By: #### C DP, HCG, CP, LIPR, TSH ####[address] [address] #### PROL, FT3, T4, GLYHGB ####[address] [address] Staging: NOT REPORTED Normal [facility] Comment on above: Performed By: #### C DP, HCG, CP, LIPR, TSH ####[address] [address] #### PROL, FT3, T4, GLYHGB ####[facility] [place] [address] HCG Screen, Bloodon 05-31-19 18 HCG Qn Negative Normal NEG [facility] Comment on above: Result Comment: Spec imens with hCG levels near the threshold of the test (25 mIU/mL) may give a negative or indeterminate result. In such cases, another test should be performed with a new specimen in 48-72 hours. If early is suspected clinically in this setting, correlation with quantitative serum b-hCG level is suggested.Performed at [facility] [address] [place] [address] Performed By: #### C DP, HCG, CP, LIPR, TSH ####[facility] [place] [address] #### PROL, FT3, T4, GLYHGB ####[address] [address] Lipid Profileon 05-30-2017 Cholesterol 172 mg/dL Normal <200 [facility] Comment on above: Result Comment: Chol esterol Guidelines: <200 Desirable 200-240 Borderline >240 Undesirable Performed By: #### C DP, HCG, CP, LIPR, TSH ####[facility] [place] [address] #### PROL, FT3, T4, GLYHGB ####[address] [address] Cholesterol to HDL Ratio 2.5 {ratio} Normal <5 [facility] Comment on above: Performed By: #### C DP, HCG, CP, LIPR, TSH ####[facility] [place] [address] #### PROL, FT3, T4, GLYHGB ####[address] [place] [address] HDL Cholesterol 69 mg/dL Normal >40 [facility] Comment on above: Result Comment: HDL Guidelines: <40 Undesirable 40-59 Borderline >59 Desirable Performed By: #### C DP, HCG, CP, LIPR, TSH ####[facility] [place] [address] #### PROL, FT3, T4, GLYHGB ####[facility] [address] [place] [address] LDL Cholesterol 83 mg/dL Normal 0-130 [facility] Comment on above: Result Comment: LDL Guidelines: <100 Desirable 100-129 Near to/above Desirable 130-159 Borderline >159 UndesirableDirect (measured) LDL and calculated LDL are not interchangeable tests. Performed By: #### C DP, HCG, CP, LIPR, TSH ####[address] [place] [address] #### PROL, FT3, T4, GLYHGB ####[address] [place] [address] Triglyceride 99 mg/dL Normal <150 [facility] Comment on above: Result Comment: Trig lyceride Guidelines: <150 Desirable 150-199 Borderline 200-499 High >499 Very high Based on AHA Guidelines for fasting triglyceride, December 2011.Performed at [facility] [address] [place] [address] Performed By: #### C DP, HCG, CP, LIPR, TSH ####[facility] [place] [address] #### PROL, FT3, T4, GLYHGB ####[address] [place] [address] Cholesterol in VLDL mass conc NOT REPORTED Normal 1-30 [facility] Comment on above: Performed By: #### C DP, HCG, CP, LIPR, TSH ####[facility] [place] [address] #### PROL, FT3, T4, GLYHGB ####[facility] [address] [place] [address] PSYCHIATRIC EVALUATIONon PSYCHIATRIC EVALUATION [facility] [address] [place] [address] PSYCHIATRIC EVALUATIONPATIENT NAME: WALTER ANDRADE : 2000[facility] REC NO: [id number] ROOM: [address] [place] [address] NO: [id number] ADMIT DATE: 05/30/2017PROVIDER: Juan MontanaiCOMPREHENSIVE PSYCHIATRIC EVALUATIONHISTORY OF PRESENTING ILLNESS AND REASON FOR CURRENT ADMISSION: Thepatient is a 17-year-old female, who was having suicidal thoughts and plansto cut herself or overdose on medication or drink bleach and . Withthis, she is admitted to [facility] [place].PAST PSYCHIATRIC HISTORY: History of major depressive disorder. [...] STAY: 10 days.JUAN HENDERSONURTID: 05/30/2017 18:30:55 SI/Randi_MAGYUD_TJob#: [id number] Doc#: [id number]: Normal [facility] Thyroid Stim. Horm.on 2017 Thyroid stimulating hormone (TSH) 1.47 m[IU]/L Normal 0.30-5.00 [facility] Comment on above: Result Comment: Perf ormed at [facility] [address] [place] [address] Performed By: #### C DP, HCG, CP, LIPR, TSH ####[facility] [place] [address] #### PROL, FT3, T4, GLYHGB ####[facility] [address] [place] [address] *RAPID FLU AANDB BY ANYA Multani 04-14-2017 *RAPID FLU AANDB BY MOLECULAR Clinical Report: (D) Specimen: NASAL SWAB Collected: 04/14/2017 18:44 Status: Final Last Updated: 04/14/2017 21:20 (1) COLLECTION TIME NOT SPECIFIED No collection time noted on specimen or requisition. The collection time recorded is the time of receipt in the lab. FLUA RNA (Final) Negative FLUB RNA (Final) Negative Normal [facility] Comment on above: Order Comment: COLLE CTION TIME NOT SPECIFIED No collection time noted on specimen orrequisition. The collection time recorded is the time of receipt in thelab. Performed By: #### 3 1018 ####[facility] Testosterone, Freeon 1225-2 017 % Free Testosterone 1.9 % Normal [facility] Comment on above: Result Comment: Refe rence Range:Adult Females: 0.8 - 1.4TESTING PERFORMED AT:[employer] [place], [place] [address]CIFZXFTRUDI LUNA M.D. Performed By: #### T ESFR ####[address] [phone] Serum Free Testosterone 7.2 pg/mL Normal [facility] Comment on above: Result Comment: Refe rence Range:Adult Females: 1.1 - 6.3TESTING PERFORMED AT:[facility], [id number] [place] [address]HOUTPZTRUDI LUNA M.D. Performed By: #### T ESFR ####[address] [phone] Testosterone, Freeon 1223-2 017 Testosterone, Serum Total 38 ng/dL Normal [facility] Comment on above: Result Comment: Refe rence Range:Adult Females Premenopausal 10 - 55 Postmenopausal 7 - 40TESTING PERFORMED AT:[facility], [id number] [place] [address]QJBSGPTRUDI LUNA M.D. Performed By: #### T ESFR ####[address] [phone] Testosterone, Freeon 1222-2 017 Sex Hormone Binding Globulin 23.7 nmol/L Normal [facility] Comment on above: Result Comment: Refe rence Range:Pubertal: 36.0 - 125.020 - 49y: 24.6 - 122.0>49y: 17.3 - 125.0TESTING PERFORMED AT:[employer] [place], [place] CAM LUNA M.D. Performed By: #### T ESFR ####[address] [phone] Hemoglobin A1con 03-03-2017 Hemoglobin A1c/Hemoglobin.total mass fraction (Bld) 5.0 % Normal 0.0-6.4 [facility] Comment on above: Performed By: #### H BA1C ####[address] [phone] Insulinon 03-02-2017 Insulin 9 uIU/mL Normal [facility] Comment on above: Result Comment: Refe rence RangePost 4-12 hour Fast Male Female 0-8 years 0-13 uIU/mL 0-13 uIU/mL >8 years 0-17 uIU/mL 0-17 uIU/mL2 hour Post Meal 7.6-26 uIU/mL 7.6-26 uIU/mL2 hour Post Glucose 15-53 uIU/mL 15-53 uIU/mL Testing Performed By: #### I NSUL ####[address] [phone] T4,Freeon 03-02-2017 Thyroxine (T4) free 1.3 ng/dL Normal 0.8-1.4 [facility] Comment on above: Result Comment: New Reference Ranges - effective 01/01/09. Performed By: #### T 4FR ####[address] [phone] TSHon 03-02-2017 Thyroid stimulating hormone (TSH) 2.031 uIU/mL Normal 0.350-5.500 [facility] Comment on above: Performed By: #### T SH ####[address] [phone] Vitamin D 25 OHon 03-02-2017 25 OH Vitamin D 21 ng/mL Normal 20-50 [facility] Comment on above: Result Comment: Refe rence ranges provided by [facility] based onconsensus conferences and expert opinion:Level Characterization1-10 ng/mL Vitamin D tuaquipmmt07-28 ng/mL Suboptimal Vitamin D lwbonw73-50 ng/mL Optimal Vitamin D status>80 ng/mL Potentially toxic Vitamin D effects Performed By: #### V 25DH ####[address] [phone] Comp Metabolic Panelon 03-01 Alanine aminotransferase (ALT) 16 U/L Normal 0-31 [facility] Comment on above: Performed By: #### C MP ####[address] [phone] Albumin 4.2 g/dL Normal 3.5-5.0 [facility] Comment on above: Performed By: #### C MP ####[address] [phone] Alkaline phosphatase (ALP) 82 U/L Normal 35-104 [facility] Comment on above: Performed By: #### C MP ####[address] [phone] Aspartate aminotransferase (AST) 19 U/L Normal 0-31 [facility] Comment on above: Performed By: #### C MP ####[address] [phone] Bili,Total 0.7 mg/dl Normal 0.0-1.0 [facility] Comment on above: Result Comment: Jake ature : 1 Day 1.0-6.0 mg/dl 2 Day 6.0-8.0 mg/dl 3-5 Day 10.0-15.0 mg/dl Performed By: #### C MP ####[address] [phone] Calcium 9.0 mg/dL Normal 7.6-11.0 [facility] Comment on above: Performed By: #### C MP ####[address] [phone] Chloride 106 mmol/L Normal 96-108 [facility] Comment on above: Performed By: #### C MP ####[address] [phone] CO2 24.9 mmol/L Normal 22.0-29.0 [facility] Comment on above: Performed By: #### C MP ####[address] [phone] Creatinine 0.65 mg/dL Normal 0.50-1.00 [facility] Comment on above: Result Comment: Jake ature 0.3-1.0 mg/dL Performed By: #### C MP ####[address] [phone] Glucose mass conc 79 mg/dL Normal 70-99 [facility] Comment on above: Result Comment: Tiffanie lindo for Diagnosis of Diabetes(Effective 08/17/10):Fasting specimen (no caloric intake for at least 8 hours). <100 mg/dl Normal 100-125 mg/dl Increased Risk for Diabetes >125 mg/dl Diagnostic for DiabetesRandom Glucose (any time of day without regard to last meal). >=200 mg/dl plus Classic Symptoms of Diabetes Performed By: #### C MP ####[address] [phone] Potassium molar conc 4.3 mmol/L Normal 3.3-5.1 [facility] Comment on above: Performed By: #### C MP ####[address] [phone] Protein 7.6 g/dL Normal 5.9-8.4 [facility] Comment on above: Performed By: #### C MP ####[address] [phone] Sodium 137 mmol/L Normal 133-145 [facility] Comment on above: Performed By: #### C MP ####[address] [phone] Urea nitrogen 9 mg/dL Normal 4-19 [facility] Comment on above: Performed By: #### C MP ####[facility] [address] [phone] Hemoglobin A1con 03-01-2017 Hemoglobin A1c/Hemoglobin.total mass fraction (Bld) ----- Normal [facility] Comment on above: Result Comment: In D iagnosed Diabetes: > 8 Action suggested 7-8 Good Control 6-7 Near Normal Glycemia < 6 Non-diabetic level Diabetes Screenin.7-6.4% Prediabetic >6.5% Diabetic - should be confirmed with repeat HgA1c or fasting blood sugar. Performed By: #### H BA1C ####[facility] [address] [phone] Progress Noteon 03-01-2017 [employer] Authentication Interface Message Text Subjective: Walter Andrade is a 16 y.o. female with past medical history speechtherapy, depression and suicide attempt age 12y, migraine with aura (x1), andfamily history high cholesterol/stroke/DVT/ HTN/SARA/DM/fertility issues who wasreferred to endocrinology secondary to irregular menses, insulin resistance,elevated testosterone with concerns for PCOS in October 2015 at the age ws74stuhp. She reported axillary hair and pubic hair [...] 6am. She is [facility]to [facility] times per week. [facility] Both Destinzidy and mother report she knows what to do but she doesn't doit. She thinks she is eating healthier at college and has soup and salad bar alot. She is working now at [employer] at [employer] and she says she drinks thesugary drinks there all the time.Social History:She lives with parents, older brother, older and younger sisters. 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 She graduated high school 2017. She is [facility] [employer] [facility] [employer] for school psychology with a minor in education. [facility]Past Medical History:Diagnosis Date Depression Migraine with [...] (Z= 2.27) based on CDC 2-20 Years crrngo-ydx-wzj data using vitals from03/01/2017.50 %ile (Z= -0.01) based on CDC 2-20 Years utkxiys-ham-bvj data using vitalsfrom 03/01/2017.General appearance: WN/WD, NAD, pleasant and cooperativeHEENT: NC/AT. Nares without drainage. MMM without pharyngeal erythema orexudate.Eyes: Conjuctivae clear. PERRL.Cardiac: RRR without murmur, rub, or gallop. PT 2+ bilaterally.Lungs: CTA bilaterally without wheezes, rales, or rhonchi.Abdomen: Positive bowel sounds, soft, NT/ND. No organomegaly appreciated.Extremities : MAEE. No edema.Skin: Light thin hair above upper lip. Mild AN knuckles, posterior neck, andaxilla. [place] thin stria on her upper arms, trunk.Genitourinary: [...] 87 143DHEA (ng/dL) 372 1120Cortisol (mcg/dL) 3.5 8860-LV-Qwhypumvmzyo (ng/dL) 70 1625-MM-Svfdmwbsvidq (ng/dL) 62 802Testosterone (ng/dL) 33 34OGTT: Oral Glucose Tolerance Test (Date: 10/27/2015)Sample Time (min) Meter Glucose Lab Glucose (mg/dL) Insulin (uIU/mL)0 86 85 2160 163 [id number] 93 101 118 Ref. Range 10/27/2015 08:45Hemoglobin [...] Selam she make an appointment with a lifestyle block farmer to discuss risks andbenefits of all contraception [...] minutes, >50% of time spentin counseling Normal 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 female with past medical history speechtherapy, depression and suicide attempt age 12y, migraine with aura (x1), andfamily history high cholesterol/stroke/DVT/ HTN/SARA/DM/fertility issues who wasreferred to endocrinology secondary to irregular menses, insulin resistance,elevated testosterone with concerns for PCOS in October 2015 at the age [id number]. She reported axillary hair and pubic hair [...] are of variable flow. She is using periodAppsee jyoti on her phone. She denies polydipsia [...] do it. She is working now at [employer] says eating more because of this. As she has more money with working, shewill buy soda, etc to eat and drink.Social History:She lives with parents, older brother, older and younger sisters. She is activein [employer] and [employer] band. 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 Shewas in many extracurricular activities such as SADD, academia challenge, studentcouncil, game club in high school. She graduated high school 2016. She will [facility] for school psychology with a minor in education.She will live on campus at [facility]. 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[employer].Past Medical History:Diagnosis Date Depression Migraine with aura [...] cm Wt (!) 105.8 kg BMI 39.68 kg/q7Khkdtmbzzxeth percentiles are 99.7 % systolic and 72.8 % diastolic based on NHBPEP's4th Report.Repeat BP with manual cuff 110/68Wt Readings from Last 3 Encounters:10/21/16 (!) 105.8 kg (99 %, Z= 2.33)*04/15/16 (!) 103.7 kg (99 %, Z= 2.28)*12/10/15 (!) 104.6 kg (99 %, Z= 2.30) Growth percentiles are based on [facility] 2-20 Years data.Ht Readings from Last 3 Encounters:10/21/16 163.3 cm (51 %, Z= 0.01)*04/15/16 162.8 cm (48 %, Z= -0.05)*12/10/15 162.9 cm (49 %, Z= -0.03) Growth percentiles are based on CDC 2-20 Years data.Body mass index is 39.68 kg/(m^2).99 %ile (Z= 2.21) based on CDC 2-20 Years BMI-for-age data using vitals from10/21/2016.99 %ile (Z= 2.33) based on CDC 2-20 Years ilcnza-uku-xzi data using vitals from10/21/2016.51 %ile (Z= 0.01) based on CDC 2-20 Years gmuwwgc-fet-uds data using vitals from10/21/2016.General appearance: WN/WD, NAD, pleasant and cooperativeHEENT: NC/AT. Nares without drainage. MMM without pharyngeal erythema orexudate.Eyes: Conjuctivae clear. PERRL.Cardiac: RRR without murmur, rub, or gallop. PT 2+ bilaterally.Lungs: CTA bilaterally without wheezes, rales, or rhonchi.Abdomen: Positive bowel sounds, soft, NT/ND. No organomegaly appreciated.Extremities : MAEE. No edema.Skin: Light thin hair above upper lip. Mild AN knuckles, posterior neck, andaxilla. [place] thin stria on her upper arms, trunk-can [...] 87 143DHEA (ng/dL) 372 1120Cortisol (mcg/dL) 3.5 9036-MH-Imfnuqhgdghz (ng/dL) 70 8032-RY-Wiifqntwaswr (ng/dL) 62 802Testosterone (ng/dL) 33 34OGTT: Oral Glucose Tolerance Test (Date: 10/27/2015)Sample Time (min) Meter Glucose Lab Glucose (mg/dL) Insulin (uIU/mL)0 86 85 2160 163 [id number] 93 101 118 Ref. Range 10/27/2015 08:45Hemoglobin [...] minutes, >50% of time spentin counseling Normal [facility] Vital Signs Date Time Vital Sign Value Performing Clinician Facility 11-05-2024 10:39-0400 Body mass index (BMI) [Ratio] 45.65 kg/m2 Natasha Gavin CELLAR SUPERVISOR.CNM Work Phone: [facility] 11-05-2024 10:39-0400 Body weight 121.75 kg Natasha Gavin CELLAR SUPERVISOR.CNM Work Phone: [facility] 11-05-2024 10:39-0400 Diastolic blood pressure 80 mm[Hg] Natasha Gavin CELLAR SUPERVISOR.CNM Work Phone: [facility] Comment on above: BP machine 11-05-2024 10:39-0400 Systolic blood pressure 127 mm[Hg] Natasha Gavin CELLAR SUPERVISOR.CNM Work Phone: [facility] Comment on above: BP machine 10-29-2024 14:51-0400 Body mass index (BMI) [Ratio] 45.18 kg/m2 Renetta Hernandez MD Work Phone: [facility] 10-29-2024 14:51-0400 Body weight 120.47 kg Renetta Hernandez MD Work Phone: [facility] 10-29-2024 14:51-0400 Diastolic blood pressure 80 mm[Hg] Renetta Hernandez MD Work Phone: [facility] 10-29-2024 14:51-0400 Systolic blood pressure 120 mm[Hg] Renetta Hernandez MD Work Phone: [facility] 10-22-2024 10:50-0400 Body mass index (BMI) [Ratio] 44.67 kg/m2 Bushra Roa MD Work Phone: [facility] 10-22-2024 10:50-0400 Body weight 119.11 kg Bushra Roa MD Work Phone: [facility] 10-22-2024 10:50-0400 Diastolic blood pressure 72 mm[Hg] Bushra Roa MD Work Phone: [facility] 10-22-2024 10:50-0400 Systolic blood pressure 112 mm[Hg] Bushra Roa MD Work Phone: [facility] 10-15-2024 11:14-0400 Body mass index (BMI) [Ratio] 44.23 kg/m2 Lima Kim CELLAR SUPERVISOR.CNM Work Phone: [facility] 10-15-2024 11:14-0400 Body weight 117.94 kg Lima Kim CELLAR SUPERVISOR.CNM Work Phone: [facility] 10-15-2024 11:14-0400 Diastolic blood pressure 68 mm[Hg] Lima Kim CELLAR SUPERVISOR.CNM Work Phone: [facility] 10-15-2024 11:14-0400 Systolic blood pressure 101 mm[Hg] Lima Kim CELLAR SUPERVISOR.CNM Work Phone: [facility] 10-08-2024 11:05-0400 Body mass index (BMI) [Ratio] 43.89 kg/m2 Bushra Roa MD Work Phone: [facility] 10-08-2024 11:05-0400 Body weight 117.03 kg Bushra Roa MD Work Phone: [facility] 10-08-2024 11:05-0400 Diastolic blood pressure 70 mm[Hg] Bushra Roa MD Work Phone: [facility] 10-08-2024 11:05-0400 Systolic blood pressure 107 mm[Hg] Bushra Roa MD Work Phone: [facility] 10-01-2024 14:51-0400 Body mass index (BMI) [Ratio] 44.26 kg/m2 Renetta Hernandez MD Work Phone: [facility] 10-01-2024 14:51-0400 Body weight 118.03 kg Renetta Hernandez MD Work Phone: [facility] 10-01-2024 14:51-0400 Diastolic blood pressure 80 mm[Hg] Renetta Hernandez MD Work Phone: [facility] 10-01-2024 14:51-0400 Systolic blood pressure 121 mm[Hg] Renetta Hernandez MD Work Phone: [facility] 09-24-2024 15:22-0400 Body mass index (BMI) [Ratio] 43 kg/m2 Renetta Hernandez MD Work Phone: [facility] 09-24-2024 15:22-0400 Body weight 114.67 kg Renetta Hernandez MD Work Phone: [facility] 09-24-2024 15:22-0400 Diastolic blood pressure 68 mm[Hg] Renetta Hernandez MD Work Phone: [facility] 09-24-2024 15:22-0400 Systolic blood pressure 102 mm[Hg] Renetta Hernandez MD Work Phone: [facility] 09-17-2024 15:35-0400 Body mass index (BMI) [Ratio] 43.21 kg/m2 Natasha Gavin CELLAR SUPERVISOR.CNM Work Phone: [facility] 09-17-2024 15:35-0400 Body weight 115.21 kg Natasha Gavin CELLAR SUPERVISOR.CNM Work Phone: [facility] 09-17-2024 15:35-0400 Diastolic blood pressure 74 mm[Hg] Natasha Gavin CELLAR SUPERVISOR.CNM Work Phone: [facility] 09-17-2024 15:35-0400 Systolic blood pressure 110 mm[Hg] Natasha Gavin CELLAR SUPERVISOR.CNM Work Phone: [facility] 09-03-2024 13:12-0400 Body mass index (BMI) [Ratio] 43.89 kg/m2 Natasha Gavin CELLAR SUPERVISOR.CNM Work Phone: [facility] 09-03-2024 13:12-0400 Body weight 117.03 kg Natasha Gavin CELLAR SUPERVISOR.CNM Work Phone: [facility] 09-03-2024 13:12-0400 Diastolic blood pressure 74 mm[Hg] Natasha Gavin CELLAR SUPERVISOR.CNM Work Phone: [facility] 09-03-2024 13:12-0400 Systolic blood pressure 118 mm[Hg] Natasha Gavin CELLAR SUPERVISOR.CNM Work Phone: [facility] 08-20-2024 11:03-0400 Body mass index (BMI) [Ratio] 42.87 kg/m2 Anahi Bruno MD Work Phone: [facility] 08-20-2024 11:03-0400 Body weight 114.31 kg Anahi Bruno MD Work Phone: [facility] 08-20-2024 11:03-0400 Diastolic blood pressure 70 mm[Hg] Anahi Bruno MD Work Phone: [facility] 08-20-2024 11:03-0400 Systolic blood pressure 110 mm[Hg] Anahi Bruno MD Work Phone: [facility] 08-08-2024 11:09-0400 Body mass index (BMI) [Ratio] 41.47 kg/m2 Lima Kim CELLAR SUPERVISOR.CNM Work Phone: [facility] 08-08-2024 11:09-0400 Body weight 110.59 kg Lima Kim CELLAR SUPERVISOR.CNM Work Phone: [facility] 08-08-2024 11:09-0400 Diastolic blood pressure 88 mm[Hg] Lima Plotgriselda CELLAR SUPERVISOR.CNM Work Phone: [facility] 08-08-2024 11:09-0400 Systolic blood pressure 124 mm[Hg] Lima Kim CELLAR SUPERVISOR.CNM Work Phone: [facility] 07-04-2024 15:02-0400 Body height 162.6 cm Adore Morales MD Work Phone: [facility] 07-04-2024 15:02-0400 Body mass index (BMI) [Ratio] 41.71 kg/m2 Adore Morales MD Work Phone: [facility] 07-04-2024 15:02-0400 Body temperature 98.01 [degF] Adore Morales MD Work Phone: [facility] 07-04-2024 15:02-0400 Body weight 110.22 kg [facility] 07-04-2024 15:02-0400 Diastolic blood pressure 60 mm[Hg] Adore Morales MD Work Phone: [facility] 07-04-2024 15:02-0400 Heart rate 81 /min Adore Morales MD Work Phone: [facility] 07-04-2024 15:02-0400 Respiratory rate 18 /min Adore Morales MD Work Phone: [facility] 07-04-2024 15:02-0400 SaO2% (BldA) [Mass fraction] 99 % Adore Morales MD Work Phone: [facility] 07-04-2024 15:02-0400 Systolic blood pressure 101 mm[Hg] Adore Morales MD Work Phone: [facility] 06-11-2024 14:25-0400 Body mass index (BMI) [Ratio] 41.16 kg/m2 Bushra Roa MD Work Phone: [facility] 06-11-2024 14:25-0400 Body weight 109.77 kg Bushra Roa MD Work Phone: [facility] 06-11-2024 14:25-0400 Diastolic blood pressure 60 mm[Hg] Bushra Roa MD Work Phone: [facility] 06-11-2024 14:25-0400 Systolic blood pressure 100 mm[Hg] Bushra Roa MD Work Phone: [facility] 05-22-2024 10:27-0400 Body mass index (BMI) [Ratio] 41.84 kg/m2 Cleo Portillo MD Work Phone: [facility] 05-22-2024 10:27-0400 Body weight 111.58 kg Cleo Portillo MD Work Phone: [facility] 05-22-2024 10:27-0400 Diastolic blood pressure 66 mm[Hg] Cleo Portillo MD Work Phone: [facility] 05-22-2024 10:27-0400 Systolic blood pressure 118 mm[Hg] Cleo Portillo MD Work Phone: [facility] 04-24-2024 08:35-0500 Body height 163.3 cm Dina Fairbanks CELLAR SUPERVISOR.ALMOND PASTE MIXER Work Phone: [facility] 04-24-2024 08:35-0500 Body mass index (BMI) [Ratio] 42.87 kg/m2 Dina Fairbanks CELLAR SUPERVISOR.ALMOND PASTE MIXER Work Phone: [facility] 04-24-2024 08:35-0500 Body weight 114.31 kg Dina Daniel CELLAR SUPERVISOR.ALMOND PASTE MIXER Work Phone: [facility] 04-24-2024 08:35-0500 Diastolic blood pressure 80 mm[Hg] Dina Daniel CELLAR SUPERVISOR.ALMOND PASTE MIXER Work Phone: [facility] 04-24-2024 08:35-0500 Systolic blood pressure 122 mm[Hg] Dina Fairbanks CELLAR SUPERVISOR.ALMOND PASTE MIXER Work Phone: [facility] 03-23-2024 10:51-0500 Body mass index (BMI) [Ratio] 44.29 kg/m2 Adore Morales MD Work Phone: [facility] 03-23-2024 10:51-0500 Body temperature 99.39 [degF] Adore Morales MD Work Phone: [facility] 03-23-2024 10:51-0500 Body weight 117.03 kg Adore Morales MD Work Phone: [facility] 03-23-2024 10:51-0500 Diastolic blood pressure 72 mm[Hg] Adore Morales MD Work Phone: [facility] 03-23-2024 10:51-0500 Heart rate 90 /min Adore Morales MD [facility] 03-23-2024 10:51-0500 SaO2% (BldA) [Mass fraction] 100 % Adore Morales MD [facility] 03-23-2024 10:51-0500 Systolic blood pressure 131 mm[Hg] Adore Morales MD [facility] 07-20-2023 16:27-0400 Body height 162.6 cm Adore Morales MD Work Phone: [facility] 07-20-2023 16:27-0400 Body mass index (BMI) [Ratio] 41.88 kg/m2 Adore Morales MD [facility] 07-20-2023 16:27-0400 Body weight 110.68 kg Adore Morales MD [facility] 07-20-2023 16:27-0400 Diastolic blood pressure 75 mm[Hg] Adore Morales MD Work Phone: [facility] 07-20-2023 16:27-0400 Heart rate 111 /min Adore Morales MD [facility] 07-20-2023 16:27-0400 SaO2% (BldA) [Mass fraction] 99 % Adore Morales MD [facility] 07-20-2023 16:27-0400 Systolic blood pressure 130 mm[Hg] Adore Morales MD Work Phone: [facility] 07-16-2023 17:37-0400 Diastolic blood pressure 77 mm[Hg] Darius Franco MD Work Phone: [facility] 07-16-2023 17:37-0400 Heart rate 78 /min Darius Franco MD Work Phone: [facility] 07-16-2023 17:37-0400 Respiratory rate 16 /min Darius Franco MD Work Phone: [facility] 07-16-2023 17:37-0400 SaO2% (BldA) [Mass fraction] 97 % Darius Franco MD Work Phone: [facility] 07-16-2023 17:37-0400 Systolic blood pressure 130 mm[Hg] Darius Franco MD Work Phone: [facility] 07-16-2023 14:47-0400 Body temperature 98.1 [degF] Darius Franco MD Work Phone: [facility] 07-12-2023 09:03-0400 Body temperature 98.49 [degF] Vick Kincaid MD Work Phone: [facility] 07-12-2023 09:03-0400 Diastolic blood pressure 68 mm[Hg] Vick Kincaid MD Work Phone: [facility] 07-12-2023 09:03-0400 Heart rate 86 /min Vick Kincaid MD Work Phone: [facility] 07-12-2023 09:03-0400 Respiratory rate 18 /min Vick Kincaid MD Work Phone: [facility] 07-12-2023 09:03-0400 SaO2% (BldA) [Mass fraction] 94 % Vick Kincaid MD Work Phone: [facility] 07-12-2023 09:03-0400 Systolic blood pressure 101 mm[Hg] Vick Kincaid MD Work Phone: [facility] 07-11-2023 06:42-0400 Body height 162.6 cm Vick Kincaid MD Work Phone: [facility] 07-11-2023 06:42-0400 Body mass index (BMI) [Ratio] 42.91 kg/m2 Vick Kincaid MD Work Phone: [facility] 07-11-2023 06:42-0400 Body weight 113.4 kg Vick Kincaid MD Work Phone: [facility] 06-13-2023 08:00-0400 Body height 162.6 cm Ale Marinelli RN [facility] 06-13-2023 08:00-0400 Body mass index (BMI) [Ratio] 42.91 kg/m2 Ale Marinelli RN [facility] 06-13-2023 08:00-0400 Body weight 113.4 kg Ale Marinelli RN [facility] 04-06-2023 14:20-0500 Body mass index (BMI) [Ratio] 41.47 kg/m2 Ирина Cooper MD [facility] 04-06-2023 14:20-0500 Body temperature 99.1 [degF] Ирина Cooper MD [facility]: [facility] 04-06-2023 14:20-0500 Body weight 109.59 kg Ирина Cooper MD [facility] 04-06-2023 14:20-0500 Diastolic blood pressure 76 mm[Hg] Ирина Cooper MD [facility] 04-06-2023 14:20-0500 Heart rate 94 /min Ирина Cooper MD Work Phone: [facility] 04-06-2023 14:20-0500 Respiratory rate 20 /min Ирина Cooper MD [facility] 04-06-2023 14:20-0500 SaO2% (BldA) [Mass fraction] 100 % Ирина Cooper MD Work Phone: [facility] 04-06-2023 14:20-0500 Systolic blood pressure 129 mm[Hg] Ирина Cooper MD [facility] 01-28-2023 14:02-0500 Body height 162.6 cm Vick Kincaid MD [facility] 01-28-2023 14:02-0500 Body mass index (BMI) [Ratio] 42.74 kg/m2 Vick Kincaid MD Work Phone: [facility] 01-28-2023 14:02-0500 Body temperature 97.59 [degF] [facility]aid MD [facility] 01-28-2023 14:02-0500 Body weight 112.95 kg Vick Kincaid MD [facility] 01-28-2023 14:02-0500 Diastolic blood pressure 64 mm[Hg] Vick Kincaid MD [facility] 01-28-2023 14:02-0500 Heart rate 91 /min Vick Kincaid MD Work Phone: [facility] 01-28-2023 14:02-0500 Respiratory rate 16 /min Vick Kincaid MD Work Phone: [facility] 01-28-2023 14:02-0500 Systolic blood pressure 114 mm[Hg] Vick Kincaid MD Work Phone: [facility] 08-08-2022 16:12-0400 Diastolic blood pressure 78 mm[Hg] Pcp Unknown [facility] 08-08-2022 16:12-0400 Heart rate 99 /min Pcp Unknown [facility] 08-08-2022 16:12-0400 SaO2% (BldA) [Mass fraction] 98 % Pcp Unknown [facility] 08-08-2022 16:12-0400 Systolic blood pressure 137 mm[Hg] Pcp Unknown [facility] 08-08-2022 14:44-0400 Body temperature 97.7 [degF] Pcp Unknown [facility] 08-08-2022 14:44-0400 Body weight 120 kg Pcp Unknown [facility] 08-08-2022 14:44-0400 Respiratory rate 16 /min Pcp Unknown [facility] 06-23-2022 13:47-0400 Body height 162.6 cm Adore Morales MD Work Phone: [facility] 06-23-2022 13:47-0400 Body mass index (BMI) [Ratio] 45.25 kg/m2 Adore Morales MD Work Phone: [facility] 06-23-2022 13:47-0400 Body weight 119.57 kg Adore Morales MD Work Phone: [facility] 06-23-2022 13:47-0400 Diastolic blood pressure 66 mm[Hg] Adore Morales MD Work Phone: [facility] 06-23-2022 13:47-0400 Heart rate 89 /min Adore Morales MD Work Phone: [facility] 06-23-2022 13:47-0400 SaO2% (BldA) [Mass fraction] 98 % Adore Morales MD Work Phone: [facility] 06-23-2022 13:47-0400 Systolic blood pressure 114 mm[Hg] [facility]ales MD [facility] Encounters Encounter Date Encounter Type Care Provider Facility Start: 11-14-2024 ambulatory Anahi Vega Facility:[facility] Start: 11-08-2024 End: 11-08-[address] [facility] Start: 11-08-2024 End: 11-08-2024 Patient encounter procedure [facility] Comment on above: Population Health Na [...] Start: 11-05-2024 End: 11-05-2024 ambulatory NATASHA GAVIN Facility:[facility] Start: 10-29-2024 End: 10-29-2024 Patient encounter procedure [employer] Coordinator [facility] Comment on above: Obesity in (HCC) (Primary Dx); Supervision of high risk in third trimester (HCC); Obesity affecting in third trimester, unspecified obesity type (HCC) Obesity affecting pr egnancy in third trimester, unspecified obesity type (HCC) (Primary Dx); 36 weeks gestation of (HCC); Supervision of high risk in third trimester (HCC) Start: 10-29-2024 End: 10-29-2024 ambulatory NATASHA GAVIN Facility:[facility] Start: 10-22-2024 End: 10-22-2024 Office outpatient visit 15 minutes Bushra Roa MD Work Phone: OB/Gynecology Comment on above: 35 weeks gestation o f (HCC) (Primary Dx); Supervision of high risk in third trimester (HCC); Obesity affecting in third trimester, unspecified obesity type (HCC) Start: 10-22-2024 End: 10-22-2024 ambulatory ADORE MORALES Facility:[facility] Start: 10-15-2024 End: 10-15-2024 Patient encounter [...] Start: 10-15-2024 End: 10-15-2024 ambulatory LIMA KIM Facility:[facility] Start: 10-08-2024 End: 10-08-2024 Office outpatient [...] Start: 10-08-2024 End: 10-08-2024 ambulatory BUSHRA ROA Facility:[facility] Start: 10-06-2024 End: 10-06-2024 Letter encounter Adore Morales MD Work Phone: [facility] Start: 10-01-2024 End: 10-01-2024 Patient encounter procedure Renetta Hernandez MD Work Phone: OB/Gynecology Comment on above: Supervision of high risk in third trimester (HCC) (Primary Dx); 32 weeks gestation of (HCC); Obesity affecting in third trimester, unspecified obesity type (HCC); Supervision of high risk in first trimester (HCC) Start: 10-01-2024 End: 10-01-2024 ambulatory ADORE MORALES Facility:[facility] Start: 09-24-2024 End: 09-24-2024 Patient encounter [...] Start: 09-24-2024 End: 09-24-2024 ambulatory RENETTA HERNANDEZ Facility:[facility] Start: 09-17-2024 End: 09-17-2024 ambulatory ADORE MORALES Facility:[facility] Start: 09-17-2024 End: 09-17-2024 Patient encounter [...] Start: 09-17-2024 End: 09-17-2024 ambulatory ADORE MORALES Facility:[facility] Start: 09-05-2024 End: 11-05-2024 Follow-up encounter [...] type; Rh negative state in antepartum period ([facility]); Need for vaccination Start: 09-03-2024 End: 09-03-2024 ambulatory ADORE MORALES Facility:[facility] Start: 08-21-2024 End: 09-06-2024 Follow-up encounter Lima Kim APRN.CNM Work Phone: OB/Gynecology Start: 08-20-2024 End: 08-20-2024 Patient encounter procedure Anahi Bruno MD Work Phone: OB/Gynecology Comment on above: Encounter for superv ision of other normal in second trimester (HCC) (Primary Dx); 26 weeks gestation of (HCC) Start: 08-20-2024 End: 08-20-2024 ambulatory LIMA KIM Facility:[facility] Start: 08-08-2024 End: 08-08-2024 Patient encounter procedure Lima Kim APRN.CNM Work Phone: OB/Gynecology Comment on above: Screening for diabet es mellitus (Primary Dx); Encounter for supervision of other normal in second trimester (HCC); Hypothyroidism, unspecified type; Depression during in second trimester (HCC) Start: 08-08-2024 End: 08-08-2024 ambulatory LIMA KIM Facility:[facility] Start: 07-09-2024 End: 07-09-2024 ambulatory DINA SANCHEZ Facility:[facility] Start: 07-04-2024 End: 07-04-2024 Office outpatient visit 15 minutes Adore Morales MD Work Phone: [facility] Comment on above: Lightheaded (Primary Dx); Hypothyroidism, unspecified type; Vitamin D deficiency; Vitamin B 12 deficiency; Acquired hypothyroidism; Current moderate episode of major depressive disorder without prior episode (HCC) Start: 07-04-2024 End: 07-04-2024 ambulatory ADORE MORALES Facility:[facility] Start: 06-13-2024 End: 06-13-2024 Telephone encounter Lima Kim AJM Work Phone: OB/Gynecology Comment on above: Question (OB Questio n) Start: 06-12-2024 End: 06-13-2024 Emergency department patient visit ADORE MORALES Facility:[facility] Start: 06-12-2024 End: 08-12-2024 Follow-up encounter Cleo Portillo MD Work Phone: OB/Gynecology Start: 06-11-2024 End: 06-11-2024 ambulatory CLEO PORTILLO Facility:[facility] Start: 06-11-2024 End: 06-11-2024 Office outpatient visit 15 minutes Bushra Roa MD Work Phone: OB/Gynecology Comment on above: 16 weeks gestation o f (Primary Dx); Supervision of high risk in first trimester; BMI 40.0-44.9, adult (HCC); Positive GBS test Start: 06-11-2024 End: 06-11-2024 ambulatory CLEO PORTILLO Facility:[facility] Start: 06-11-2024 End: 06-11-2024 Patient encounter procedure [employer] [facility] Coordinator [facility] Comment on [...] Start: 05-22-2024 End: 05-22-2024 ambulatory CLEO PORTILLO Facility:[facility] Start: 05-22-2024 End: 05-22-2024 Patient encounter procedure Cleo Portillo MD Work Phone: OB/Gynecology Comment on above: BMI 40.0-44.9, adult (HCC) (Primary Dx); Supervision of high risk in first trimester; Severe obesity due to excess calories affecting , antepartum (HCC); Postablative hypothyroidism Start: 05-21-2024 End: 07-21-2024 Follow-up encounter Cleo Portillo MD Work Phone: OB/Gynecology Start: 05-17-2024 End: 05-22-2024 Telephone encounter Dina Sanchez CELLAR SUPERVISOR.ALMOND PASTE MIXER Work Phone: OB/Gynecology Comment on above: Results Start: 05-15-2024 End: 05-15-2024 Telephone encounter Theodora Deluca MD Work Phone: OB/Gynecology Comment on above: Orders Start: 05-15-2024 End: 05-15-2024 ambulatory DINA NEFFS Facility:[facility] Start: 05-15-2024 End: 05-15-2024 Patient encounter procedure Whi Tech 2 Regional Office Coordinator [facility]str [facility] Maternal Medicine Comment on above: Encounter for antena richard screening for malformation using ultrasound (Primary Dx); 12 weeks gestation of Start: 04-24-2024 End: 06-24-2024 Follow-up encounter Dina Sanchez CELLAR SUPERVISOR.ALMOND PASTE MIXER Work Phone: OB/Gynecology Comment on above: Results Start: 04-24-2024 End: 04-24-2024 ambulatory DINA NEFFS Facility:[facility] Start: 04-24-2024 End: 04-24-2024 Patient encounter procedure Dina Sanchez CELLAR SUPERVISOR.ALMOND PASTE MIXER Work Phone: OB/Gynecology Comment on above: with uncer tain dates, antepartum (Primary Dx); Screen for STD (sexually transmitted disease); 9 weeks gestation of ; Hypothyroidism, unspecified type; Supervision of high risk , antepartum; BMI 40.0-44.9, adult (HCC) Start: 04-07-2024 End: 04-09-2024 ambulatory Adore Morales MD Work Phone: [facility] Comment on above: Test Start: 04-07-2024 End: 04-09-2024 E-mail encounter from caregiver Adore Morales MD Work Phone: [facility] Start: 03-27-2024 End: 03-31-2024 Telephone encounter Adore Morales MD Work Phone: [facility] Comment on above: Discuss results test /procedures Start: 03-23-2024 End: 03-23-2024 ambulatory AALIYAH FRANK Facility:[facility] Start: 03-23-2024 End: 03-23-2024 Office outpatient visit 15 minutes Adore Morales MD Work Phone: [facility] Comment on above: Amenorrhea (Primary Dx); Post-surgical hypothyroidism; Less than 8 weeks gestation of ([facility]); Acquired hypothyroidism Start: 08-29-2023 End: 08-29-2023 Clinical Support [facility] Pathology [facility] Pathology Comment on above: Arrived Start: 07-21-2023 End: 07-21-2023 Patient encounter procedure Vick Kincaid MD Work Phone: [facility] Surgery General Comment on above: Postoperative follow -up (Primary Dx); Hypothyroidism, postsurgical; Change in voice Start: 07-21-2023 End: 07-21-2023 ambulatory VICK KINCAID Facility:[facility] Start: 07-20-2023 ambulatory ADORE MORALES Facility: [facility] Start: 07-20-2023 End: 07-20-2023 Office outpatient visit 15 minutes Adore Morales MD Work Phone: [facility] Comment on above: Acute nonintractable headache, unspecified headache type (Primary Dx); Vapes nicotine containing substance; Marijuana use; Medication management; Multiple thyroid nodules; Current moderate episode of major depressive disorder without prior episode (HCC) Start: 07-18-2023 [facility] Start: 07-18-2023 Follow-up encounter Stacy Liu [facility] Care Management/Patient Access Comment on above: Care Coordination; O utreach; ER follow-up; Health Maintenance Outreach; APPOINTMENT SCHEDULING; Medical Record Review Start: 07-16-2023 End: 07-16-2023 Emergency department patient visit Darius Franco MD Work Phone: [facility] Emergency Department Comment on above: Headache (Pt present s to ed with migraine since Tuesday since surgery (thyroidectomy). Pt recv'd Excedrin but no detention relief. -vision changes, +photosensitive, -n/v/d, -fever, cills) Start: 07-16-2023 Telephone encounter Dina Ochoa [facility] Comment on above: Pt Update Start: 07-14-2023 End: 07-14-2023 ambulatory Marly Vidal RN [facility] Comment on above: Headache Start: 07-14-2023 End: 07-14-2023 Office outpatient visit 25 minutes Kylah Alcala PA-C Work Phone: [facility] Comment on above: Acute nonintractable headache, unspecified headache type (Primary Dx); Acute cough Start: 07-13-2023 ambulatory Kajal Khan RN [facility] Care Management/Patient Access Start: 07-13-2023 Follow-up encounter Kajal Khan RN [facility] Care Management/Patient Access Comment on above: Care Coordination; H ospital follow-up Start: 07-11-2023 End: 07-12-2023 Evaluation and management of inpatient VICK KINCAID Facility:[facility] Start: 07-11-2023 End: 07-12-2023 Subsequent hospital visit by physician Vick Kincaid MD Work Phone: [facility] Comment on above: Multiple thyroid nod ules (Primary Dx) Start: 06-28-2023 End: 06-28-2023 Office outpatient visit 15 minutes Adore Morales MD Work Phone: [facility] Comment on above: Vitamin D deficiency (Primary Dx); Vitamin B 12 deficiency; Multiple thyroid nodules; Medication management Start: 06-21-2023 End: 06-21-2023 Clinical Support Bv Pathology Work Phone: [facility] Pathology Comment on above: Arrived Start: 06-21-2023 End: 06-21-2023 Patient encounter status Bv Pathology Work Phone: [facility] Start: 06-15-2023 Admission to [facility] Vick Kincaid MD Other Phone: [facility] Surgery General Comment on above: Question about Surge ry Start: 06-15-2023 ambulatory Adore Morales MD Other Phone: [facility] Comment on above: B12 and Vitamin D bl oodwork Start: 06-15-2023 Routine [facility] examination at a health care facility Adore Morales MD Other [facility] Work Phone: Start: 06-13-2023 End: 06-13-2023 Nursing evaluation of patient and report Ale Marinelli RN [facility] Pre-Admission Testing Comment on above: Pre-op evaluation (P rimary Dx) Start: 06-13-2023 End: 06-13-2023 Pre-operative examination, unspecified Ale Marinelli RN [facility] Start: 05-30-2023 Telephone encounter Zackary Kincaid MD Other Phone: [facility] Surgery General Comment on above: Discuss results test /procedures Start: 05-13-2023 End: 05-13-2023 Office outpatient visit 15 minutes Vick Kincaid MD Work Phone: [facility] Surgery General Comment on above: Thyroid nodule (Prim tenzin Dx) Start: 04-17-2023 Letter encounter Adore Morales MD Work Phone: [facility] Start: 04-06-2023 End: 04-06-2023 Office outpatient visit 15 minutes Ирина Cooper MD Work Phone: [facility] Comment on above: Sore throat (Primary Dx) Start: 01-28-2023 End: 01-28-2023 Office consultation new/estab patient 60 min Vick Kincaid MD Work Phone: [facility] General Surgery Comment on above: Multiple thyroid nod ules (Primary Dx) Start: 11-05-2022 End: 11-05-2022 Office outpatient visit 15 minutes Adore Morales MD Work Phone: [facility] Medicine Comment on above: Ankle pain, unspecif ied chronicity, unspecified laterality (Primary Dx); Onychomycosis; Vitamin B 12 deficiency; Obesity, unspecified classification, unspecified obesity type, unspecified whether serious comorbidity present; Vitamin D deficiency; Multiple thyroid nodules; Arthralgia, unspecified joint; Medication management Start: 10-10-2022 Orders Only Adore Morales MD Work Phone: [facility] Family Medicine Start: 10-06-2022 End: 10-06-2022 Subsequent hospital visit by physician Op Ultrasound 1 [facility] Radiology Comment on above: DUB (dysfunctional u terine bleeding); PCOS (polycystic ovarian syndrome); Thyromegaly Start: 08-08-2022 End: 08-08-2022 Emergency department patient visit Daniel Arroyo [facility] Emergency 15 Start: 07-06-2022 Letter encounter Adore Morales MD Work Phone: [facility] Obstetrics/Gynecology Start: 07-05-2022 Letter encounter Jean Carlos goldsmith Start: 06-24-2022 Telephone encounter Brooke Peterson RN Work Phone: [facility] Comment on above: Discuss results test /procedures (REFERENCE 99) Start: 06-23-2022 End: 06-23-2022 Office outpatient visit 25 minutes Adore Morales MD Work Phone: [facility] Comment on above: DUB (dysfunctional u terine [...] encounter status Adore Morales MD Work Phone: [facility] Start: 03-24-2020 End: 03-24-2020 Subsequent hospital visit by physician Myrtle Cobb Work Phone: [facility] Comment on above: Anxiety; Concentration deficit; Thyromegaly Start: 05-30-2017 End: 06-03-2017 Evaluation and management of inpatient JUANCARMENCITA REGAN [facility] Start: 04-14-2017 End: 04-15-2017 Ambulatory HEATHER TIRADO Facility:[facility] Start: 03-01-2017 End: 03-02-2017 Ambulatory [facility] Start: 02-08-2017 End: 02-09-2017 Ambulatory HEATHER TIRADO Facility:[facility] Start: 02-08-2017 End: 02-09-2017 Ambulatory DEFAULT PHYSICIAN Facility:[facility] Start: 10-21-2016 End: 10-21-2016 Ambulatory [facility] Procedures Date Procedure Procedure Detail Performing [...] et rgnt non-auto w/o micrscp Lima Oglesbygriselda CELLAR SUPERVISOR.CNM Work Phone: Start: 10-08-2024 Urnls dip stick/tabl et rgnt non-auto w/o micrscp Bushra Roa MD Work Phone: Start: 09-24-2024 Us preg uterus after 1st trimest 03/14 gestation Natasha Romaine CELLAR SUPERVISOR.CNM Work Phone: Start: 09-03-2024 Antibody screen ADORE MORALES Comment on above: Order Comment: Speci men Type: BLOOD SPECIMENOrdering Facility: [facility] Address: [address] [place] [address] Performed By: #### T SPN ####CC MAIN BLOOD BANKCLIA [id number] [address] Start: 07-04-2024 25 hydroxy includes fractions if performed Adore Morales MD Work Phone: Start: 06-11-2024 Us preg uterus after 1st trimest 03/14 gestation Cleo Portillo MD Work Phone: Start: 05-15-2024 Antibody screen ADORE MORALES Comment on above: Order Comment: Speci men Type: BLOOD SPECIMENOrdering Facility: [facility] Address: [address] [place] [address] Performed By: #### T SPN ####CC MAIN BLOOD BANKCLIA [id number] [address] OF [place] Start: 05-15-2024 Us preg uterus after 1st trimest 03/14 gestation Dina Fairbanks CELLAR SUPERVISOR.ALMOND PASTE MIXER Work Phone: Start: 04-24-2024 Us uterus l imited 1/> fetuses Dina Fairbanks CELLAR SUPERVISOR.ALMOND PASTE MIXER Work Phone: Start: 03-23-2024 Urine test visual color cmprsn meths Adore Morales MD Work Phone: Start: 03-23-2024 Assay of thyroid sti mulating hormone tsh Adore Morales MD Work Phone: Start: 08-29-2023 Assay of thyroid sti mulating hormone tsh Vick Kincaid MD Work Phone: Start: 07-16-2023 Assay of magnesium 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 Start: 2073 RSV vaccine (adult) (1 - 1-dose 75+ series) RSV vaccine (adult) (1 - 1-dose 75+ series) [facility] Start: 2048 Shingles (RZV) Vaccine (1 of 2) Shingles (RZV) Vaccine (1 of 2) [facility] Start: 09-03-2034 Tetanus vaccination Tetanus (Td or Tdap) Booster [facility] Start: 09-03-2034 Urine microalbumin profile DTaP,Tdap,Td Vaccine (9 - Td or Tdap) [facility] Start: 08-01-2030 Tetanus vaccination Tetanus (Td or Tdap) Booster [facility] Start: 08-01-2030 Urine microalbumin profile DTaP,Tdap,Td Vaccine (8 - Td or Tdap) [facility] Start: 08-06-2025 Screening for malignant neoplasm of cervix Cervical Cancer Screening [facility] Start: 07-04-2025 Thyroid stimulating hormone measurement [facility] Start: 05-22-2025 Covid-19 Vaccine ( season) Covid-19 Vaccine ( season) [facility] Comment on above: Postponed from 11/13/2023 (Declined at t his time) Start: 03-23-2025 Thyroid stimulating hormone measurement TSH [facility] Start: 12-12-2024 Influenza vaccination Influenza Vaccine (#1) [facility] Start: 11-12-2024 Influenza [facility] Start: 11-05-2024 End: 11-05-2024 Patient encounter procedure OB/Gynecology Comment on above: NST NST/OB Start: 10-29-2024 End: 10-29-2024 Patient encounter procedure Maternal Medicine Comment on above: 36wk Growth Growth /OB Start: 10-22-2024 End: 01-21-2025 CBC W Auto Differential panel - Blood COMPLETE BLOOD COUNT AND DIFFERENTIAL Lab Routine Anemia during in third trimester (HCC) Expected: 10/22/2024, Expires: 01/21/2025 [facility] Work Phone: Comment on above: Expected: 10/22/2024, Expires: Start: 10-22-2024 End: 10-22-2024 Patient encounter procedure OB/Gynecology Comment on above: NST NST/OB Start: 10-15-2024 End: 01-14-2025 Thyrotropin [Units/volume] in Serum or Plasma THYROID STIMULATING HORMONE Lab Routine Hypothyroidism, unspecified type Expected: 10/15/2024, Expires: 01/14/2025 [facility] Work Phone: Comment on above: Expected: 10/15/2024, Expires: Start: 10-15-2024 End: 01-14-2025 Thyroxine (T4) free [Mass/volume] in Serum or Plasma T4 FREE/FREE THYROXINE Lab Routine Hypothyroidism, unspecified type Expected: 10/15/2024, Expires: 01/14/[address] [facility] Comment on above: Expected: 10/15/2024, Expires: [...] Office Visit OB/Gynecology [address] [place] [address] Natasha Gavin APRN.CN [address] [place] [address] SAMI 30 WK OB/Gynecology Comment on above: SAMI 30 WK Start: 09-06-2024 End: 12-06-2024 GEST GLUC GILDA, 3-HR, 100 GM, FASTING GEST GLUC GILDA, 3-HR, 100 GM, FASTING Lab Routine Elevated glucose Expected: 09/06/2024, Expires: 12/06/2024 [facility] Work Phone: Comment on above: Expected: 09/06/2024, Expires: Start: 09-03-2024 End: 12-03-[address] [facility] Comment on above: Expected: 09/03/2024, Expires: Start: 09-03-2024 End: 12-03-2024 TYPE + SCREEN [facility] Work Phone: Comment on above: Expected: 09/03/2024, Expires: Start: 09-03-2024 End: 09-03-2024 Patient encounter procedure 09/03/2024 1:15 PM EDT Routine Office Visit OB/Gynecology [address] [place] [address] Natasha Gavin APRN.CN [address] [place] [address] OB OB/Gynecology Comment on above: OB Start: 09-03-2024 End: 09-03-2024 ambulatory 09/03/2024 1:00 PM EDT Results Only [place] [facility] Laboratory [address] [place] [address] Glucose Test [facility] Laboratory Comment on above: Glucose Test Start: 08-31-2024 End: 08-31-2024 Patient encounter procedure 08/31/2024 9:00 AM EDT Office Visit [facility] [address] [place] [address] Adore Morales MD [address] [facility] [facility] [facility] [place] [address] [facility] Start: 08-28-2024 Thyroid stimulating hormone measurement TSH [facility] Start: 08-20-2024 End: 08-20-2024 Patient encounter procedure 08/20/2024 11:10 AM EDT Routine Office Visit OB/Gynecology [address] [place] [address] Anahi Gutierrez MD [address] [place] [address] Ob OB/Gynecology Comment on above: Ob Start: 08-08-2024 End: 11-07-2024 ANEMIA REFLEX PANEL ANEMIA REFLEX PANEL Lab Routine Encounter for supervision of other normal in second trimester (HCC) Expected: 08/08/2024, Expires: 11/07/[address] [facility] Comment on above: Expected: 08/08/2024, Expires: Start: 08-08-2024 End: 08-08-2025 GESTATIONAL GLUCOSE SCREEN, 1-HOUR, 50 GRAM, NON-FASTING GESTATIONAL GLUCOSE SCREEN, 1-HOUR, 50 GRAM, NON-FASTING Lab Routine Screening for diabetes mellitus Expected: 08/08/2024, Expires: 08/08/2025 [facility] Work Phone: Comment on above: Expected: 08/08/2024, Expires: Start: 08-08-2024 End: 08-08-2025 SYPHILIS TREPONEMAL W/REFLEX SYPHILIS TREPONEMAL W/REFLEX Lab Routine Encounter for supervision of other normal in second trimester (HCC) Expected: 08/08/2024, Expires: 08/08/[address] [facility] Comment on above: Expected: 08/08/2024, Expires: Start: 08-08-2024 End: 11-07-2024 Thyrotropin [Units/volume] in Serum or Plasma THYROID STIMULATING HORMONE Lab Routine Hypothyroidism, unspecified type Expected: 08/08/2024, Expires: 11/07/[address] [facility] Comment on above: Expected: 08/08/2024, Expires: Start: 08-08-2024 End: 11-07-2024 Thyroxine (T4) free [Mass/volume] in Serum or Plasma T4 FREE/FREE THYROXINE Lab Routine Hypothyroidism, unspecified type Expected: 08/08/2024, Expires: 11/07/[address] [facility] Comment on above: Expected: 08/08/2024, Expires: Start: 08-08-2024 End: 08-08-2024 Patient encounter procedure 08/08/2024 11:15 AM EDT Routine Office Visit OB/Gynecology [address] [place] [address] Lima Kim APRN.[facility] [address] [place] [address] OB OB/Gynecology Comment on above: OB Start: 07-09-2024 End: 07-09-2024 Patient encounter procedure Maternal Medicine Comment on above: Anatomy Anatomy/OB Start: 07-03-2024 End: 07-03-2024 Patient encounter procedure Maternal Medicine Comment on above: Anatomy Anatomy/OB Start: 06-20-2024 Thyroid stimulating hormone measurement TSH [facility] Start: 06-11-2024 End: 06-11-2024 Patient encounter procedure 06/11/2024 2:40 PM EDT Routine Office Visit OB/Gynecology [address] [place] [address] Renetta Hernandez MD [address] [place] [address] Anatomy/OB OB/Gynecology Comment on above: Anatomy/OB Start: 06-11-2024 End: 06-11-2024 Patient encounter procedure 06/11/2024 1:30 PM EDT Routine Office Visit Maternal Medicine [address] [place] [address] Early Anatomy Maternal Medicine Comment on above: Early Anatomy Start: 05-22-2024 End: 05-22-2025 OBSTETRIC ULTRASOUND WHI OBSTETRIC ULTRASOUND WHI Anc Imaging Routine BMI 40.0-44.9, adult ([facility]) Supervision of high risk in first trimester Severe obesity due to excess calories affecting , antepartum ([facility]) Expected: 05/22/2024, Expires: 05/22/2025 [facility] Work Phone: Comment on above: Expected: 05/22/2024, Expires: Start: 05-22-2024 End: 05-22-2024 Patient encounter procedure 05/22/2024 10:20 AM EDT Routine Office Visit OB/Gynecology [address] [place] [address] Cleo Portillo MD [address] [place] [address] New OB LMP ?? seen 04/17/24 at [facility] est 9 wks OB/Gynecology Comment on above: New OB LMP ?? seen 04/17/24 at [facility] est 9 wks Start: 05-15-2024 End: 08-14-2024 Chromosome 21 trisomy [Presence] in Blood or Tissue by Cytogenetics [facility] Work Phone: Comment on above: Expected: 05/15/2024, Expires: Start: 05-15-2024 End: 05-15-2024 Patient encounter procedure 05/15/2024 11:00 AM EST Routine Office Visit Maternal Medicine [address] [place] [address] Nuchal Maternal Medicine Comment on above: Nuchal Start: 05-05-2024 End: 03-24-2025 Assay of thyroid stimulating hormone tsh TSH Lab Routine Acquired hypothyroidism Expected: 05/05/2024, Expires: 03/24/2025 [facility] [email or web address] [facility] Work Phone: Comment on above: Expected: 05/05/2024, Expires: Start: 04-24-2024 End: 07-24-2024 ANEMIA REFLEX PANEL ANEMIA REFLEX PANEL Lab Routine 9 weeks gestation of Expected: 04/24/2024, Expires: 07/24/2024 [facility] Work Phone: Comment on above: Expected: 04/24/2024, Expires: Start: 04-24-2024 End: 07-24-2024 Hemoglobin A1c in Blood HEMOGLOBIN A1C Lab Routine 9 weeks gestation of Expected: 04/24/2024, Expires: 07/24/[address] [facility] Comment on above: Expected: 04/24/2024, Expires: Start: 04-24-2024 End: 07-24-2024 Hepatitis B virus surface Ag [Presence] in Serum HEPATITIS B SURFACE ANTIGEN Lab Routine 9 weeks gestation of Expected: 04/24/2024, Expires: 07/24/[address] [facility] Comment on above: Expected: 04/24/2024, Expires: Start: 04-24-2024 End: 07-24-2024 Hepatitis C virus Ab [Presence] in Serum HEPATITIS C ANTIBODY IA WITH CONFIRMATION Lab Routine 9 weeks gestation of Expected: 04/24/2024, Expires: 07/24/[address] [facility] Comment on above: Expected: 04/24/2024, Expires: Start: 04-24-2024 End: 07-24-2024 HIV 1+2 Ab [Presence] in Serum or Plasma by Immunoassay HIV 1/2 COMBO WITH REFLEX TO DIFFERENTIATION Lab Routine 9 weeks gestation of Expected: 04/24/2024, Expires: 07/24/[address] [facility] Comment on above: Expected: 04/24/2024, Expires: Start: 04-24-2024 End: 04-24-2025 OBSTETRIC ULTRASOUND WHI OBSTETRIC ULTRASOUND WHI Anc Imaging Routine 9 weeks gestation of Expected: 04/24/2024, Expires: 04/24/[address] [facility] Comment on above: Expected: 04/24/2024, Expires: Start: 04-24-2024 End: 07-24-2024 RUBELLA IGG ANTIBODY RUBELLA IGG ANTIBODY Lab Routine 9 weeks gestation of Expected: 04/24/2024, Expires: 07/24/[address] [facility] Comment on above: Expected: 04/24/2024, Expires: Start: 04-24-2024 End: 07-24-2024 SYPHILIS TREPONEMAL W/REFLEX SYPHILIS TREPONEMAL W/REFLEX Lab Routine 9 weeks gestation of Expected: 04/24/2024, Expires: 07/24/[address] [facility] Comment on above: Expected: 04/24/2024, Expires: Start: 04-24-2024 End: 07-24-2024 Thyrotropin [Units/volume] in Serum or Plasma THYROID STIMULATING HORMONE Lab Routine 9 weeks gestation of Hypothyroidism, unspecified type Expected: 04/24/2024, Expires: 07/24/[address] [facility] Comment on above: Expected: 04/24/2024, Expires: Start: 04-24-2024 End: 07-24-2024 TYPE + SCREEN TYPE + SCREEN Blood Bank Routine 9 weeks gestation of Expected: 04/24/2024, Expires: 07/24/[address] [facility] Comment on above: Expected: 04/24/2024, Expires: Start: 11-13-2023 Covid-19 Vaccine () Covid-19 Vaccine ( season) 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 [address] [place] [address] Perfecto Cam MD [address] [place] [id number] [facility] MACARONI PRESS OPERATOR Start: 08-21-2023 End: 10-21-2023 Assay of thyroid stimulating hormone tsh TSH Lab Routine Hypothyroidism, postsurgical Postoperative follow-up Expected: 08/21/2023, Expires: 10/21/2023 [facility] Work Phone: Comment on above: Expected: 08/21/2023, Expires: Start: 08-07-2023 Screening for malignant neoplasm of cervix [facility] Start: 07-28-2023 End: 07-28-2023 Patient encounter procedure [facility] Surgery General Start: 07-22-2023 End: 07-22-2023 Patient encounter procedure 07/22/2023 9:00 AM EDT Office Visit [facility] Surgery General [address] [place] [address] Vick Kincaid MD [address] [place] [phone] [facility] Start: 07-21-2023 End: 07-21-2023 Patient encounter procedure 07/21/2023 10:15 AM EDT Office Visit [facility] Surgery General [address] [place] [address] Vick Kincaid MD [address] [place] [phone] [facility] Start: 07-20-2023 End: 07-20-2023 Patient encounter procedure 07/20/2023 4:20 PM EDT Office Visit [address] [address] Adore Morales MD [address] [facility] [facility] [facility] [place] [address] [facility] Start: 07-11-2023 End: 07-11-2023 [facility] [facility] [place] Comment on above: THYROIDECTOMY, TOTAL Start: 07-11-2023 Subsequent hospital visit by physician [facility] [place] Start: 07-11-2023 End: 07-11-2023 THYROIDECTOMY, TOTAL [facility] Work Phone: Start: 06-28-2023 End: 06-28-2023 Telemedicine consultation with patient 06/28/2023 11:20 AM EDT Telemedicine [address] [address] Adore Morales MD [address] [facility] [facility] [facility] [place] [address] [facility] Start: 06-24-2023 Screening for Chlamydia trachomatis STI Screening (Age 18-24) [facility] Start: 06-16-2023 End: 06-15-2024 Antibody borrelia burgdorferi lyme disease LYME ANTIBODIES, IGG, IGM Lab Routine Arthralgia, unspecified joint Expected: 06/16/2023, Expires: 06/15/2024 [email or web address] Work Phone: Comment on above: Expected: 06/16/2023, Expires: Start: 06-16-2023 End: 06-15-2024 Antinuclear antibodies aaliyah AUTOIMMUNE MULTIPLEX PANEL Lab Routine Arthralgia, unspecified joint Expected: 06/16/2023, Expires: 06/15/2024 [email or web address] Work Phone: Comment on above: Expected: 06/16/2023, Expires: Start: 06-16-2023 End: 06-15-2024 Antistreptolysin o screen STREPTOLYSIN O ANTIBODY Lab Routine Arthralgia, unspecified joint Expected: 06/16/2023, Expires: 06/15/2024 [email or web address] Work Phone: Comment on above: Expected: 06/16/2023, Expires: Start: 06-16-2023 End: 06-15-2024 Assay of blood/uric acid URIC ACID Lab Routine Arthralgia, unspecified joint Expected: 06/16/2023, Expires: 06/15/2024 [email or web address] Work Phone: Comment on above: Expected: 06/16/2023, Expires: Start: 06-16-2023 End: 06-15-2024 CBC W Auto Differential panel - Blood COMPLETE BLOOD COUNT W/DIFF Lab Routine Arthralgia, unspecified joint Expected: 06/16/2023, Expires: 06/15/2024 [email or web address] Work Phone: Comment on above: Expected: 06/16/2023, Expires: Start: 06-16-2023 End: 06-15-2024 Cyclic citrullinated peptide antibody CYCLIC CITRULLINATED PEPTIDE,* Lab Routine Arthralgia, unspecified joint Expected: 06/16/2023, Expires: 06/15/2024 [email or web address] Work Phone: Comment on above: Expected: 06/16/2023, Expires: Start: 06-16-2023 End: 06-15-2024 Rheumatoid factor quantitative RHEUMATOID FACTOR Lab Routine Arthralgia, unspecified joint Expected: 06/16/2023, Expires: 06/15/2024 [email or web address] Work Phone: Comment on above: Expected: 06/16/2023, Expires: Start: 06-16-2023 End: 06-15-2024 Sedimentation rate rbc non-automated ERYTHROCYTE SEDIMENTATION RATE Lab Routine Arthralgia, unspecified joint Expected: 06/16/2023, Expires: 06/15/[address] [facility] Work Phone: Comment on above: Expected: 06/16/2023, Expires: Start: 05-13-2023 End: 05-13-2023 Patient encounter procedure 05/13/2023 1:30 PM EST Office Visit [address] [address] Vick Kincaid MD [address] [place] [phone] [facility] Start: 01-28-2023 End: 01-28-2023 Patient encounter procedure 01/28/2023 2:00 PM EST Office Visit [address] [address] Vick Kincaid MD [address] [place] [phone] [facility] Start: 12-23-2022 Vaccination for human papillomavirus [facility] Start: 12-12-2022 Influenza vaccination Influenza Vaccine (#1) [facility] Start: 12-11-2022 End: 05-12-2023 Hepatic function panel HEPATIC FUNCTION PANEL Lab Routine Medication management Onychomycosis Expected: 12/11/2022, Expires: 05/12/2023 [facility] Comment on above: Expected: 12/11/2022, Expires: Start: 11-12-2022 COVID-19 Vaccine () COVID-19 Vaccine () [facility] Start: 11-12-2022 Influenza vaccination Influenza Vaccine (#1) [facility] Start: 11-11-2022 End: 05-12-2023 Antibody borrelia burgdorferi [...] unspecified joint Expected: 11/11/2022, Expires: 05/12/2023 [facility] Work Phone: Comment on above: Expected: 11/11/2022, Expires: Start: 11-11-2022 End: 05-12-2023 Sedimentation rate rbc non-automated ERYTHROCYTE SEDIMENTATION RATE Lab Routine Ankle pain, unspecified chronicity, unspecified laterality Arthralgia, unspecified joint Expected: 11/11/2022, Expires: 05/12/2023 [facility] Comment on above: Expected: 11/11/2022, Expires: Start: 11-05-2022 End: 11-05-2022 Telemedicine consultation with patient 11/05/2022 8:40 AM EDT Telemedicine [address] [address] Adore Morales MD [address] [place] [place] [address] [facility] Start: 09-23-2022 End: 03-21-2023 25 hydroxy includes fractions if performed VITAMIN D, 25-HYDROXY Lab Routine Vitamin D deficiency Expected: 09/23/2022 (Approximate), Expires: 03/21/2023 [facility] Comment on above: Expected: 09/23/2022 (Approximate), Expi res: 03/21/2023 Start: 09-23-2022 End: 03-21-2023 Cyanocobalamin vitamin b-12 VITAMIN B12 (CYANOCOBALAMIN) Lab Routine Vitamin B 12 deficiency Expected: 09/23/2022 (Approximate), Expires: 03/21/2023 [facility] Comment on above: Expected: 09/23/2022 (Approximate), Expi res: 03/21/2023 Start: 08-06-2022 End: 08-06-2022 Patient encounter procedure 08/06/2022 Office Visit Family [facility] Adore Morales MD [address] [place] [address] [facility] Start: 07-21-2022 Vaccination for human papillomavirus Human Papilloma (HPV) Vaccine (2 - 3-dose series) [facility] Start: 06-23-2022 End: 06-24-2023 US Pelvis US FEMALE PELVIS+BLADDER Imaging Routine DUB (dysfunctional uterine bleeding) PCOS (polycystic ovarian syndrome) Expected: 06/23/2022, Expires: 06/24/[address] [facility] Work Phone: Comment on above: Expected: 06/23/2022, Expires: Start: 10-17-2020 COVID-19 Vaccine (3 - Booster for Pfizer series) COVID-19 Vaccine (3 - Booster for Pfizer series) [facility] Start: 10-17-2020 COVID-19 Vaccine (3 - Pfizer series) COVID-19 Vaccine (3 - Pfizer series) [facility] Start: 09-12-2020 COVID-19 Vaccine (2 - Pfizer series) COVID-19 Vaccine (2 - Pfizer series) [facility] Start: 04-28-2020 DTaP/Tdap/Td vaccine (7 - Td) DTaP/Tdap/Td vaccine (7 - Td) [place] Start: 04-21-2020 End: 04-21-2020 Office Visit 04/21/2020 Office Visit Family Medicine Myrtle Cobb DO [address] [place], [place] [id number] [facility] Start: 03-31-2020 End: 03-31-2020 Appointment 03/31/2020 Appointment Radiology Myrtle Cobb DO [address] [place] [address] [facility] Start: 11-13-2019 Influenza vaccination Flu vaccine (#1) [place] Start: 2019 Screening for malignant neoplasm of cervix [facility] Start: 2017 Hepatitis A (HAV) Vaccine (1 of 2 - Risk 2-dose series) Hepatitis A (HAV) Vaccine (1 of 2 - Risk 2-dose series) [facility] Start: 2017 Hepatitis A (HAV) Vaccine (optional start 19+ years) Hepatitis A (HAV) Vaccine (optional start 19+ years) [facility] Start: 2016 Annual PCP Team Chronic Disease Visit Annual PCP Team Chronic Disease Visit [facility] Start: 2016 Anxiety Screening Anxiety Screening [facility] Start: 2016 Depression Screening Depression Screening [facility] Start: 2016 HIV screening HIV Screening [facility] Start: 2014 Screening for Chlamydia trachomatis Chlamydia screen [place], [place] Start: 2013 HIV screening HIV screen [place] Start: 2012 Peds To Adult Transition Annual Assessment Peds To Adult Transition Annual Assessment [facility] Start: 2010 Peds To Adult Transition Initial Discussion Peds To Adult Transition Initial Discussion [facility] Start: 2009 HPV vaccine (1 - 2-dose series) HPV vaccine (1 - 2-dose series) [place] Start: 2004 Pneumococcal 0-64 years Vaccine (1 of 1 - PPSV23) Pneumococcal 0-64 years Vaccine (1 of 1 - PPSV23) [place] Start: 2004 Pneumococcal vaccination Pneumococcal Vaccine(s) (1 - PCV) [facility] Start: 2002 Varicella vaccine (2 of 2 - 2-dose childhood series) Varicella vaccine (2 of 2 - 2-dose childhood series) [place] Start: 1998 COVID-19 Vaccine (#1) COVID-19 Vaccine (#1) [facility] Start: 1998 Hepatitis B vaccination Hepatitis B (HBV) Vaccine (1 of 3 - 3-dose series) [facility] Start: 1998 Hepatitis C screening Hepatitis C screen [place], [place] End: 03-12-2024 25 hydroxy includes fractions if performed VITAMIN D, 25-HYDROXY Lab Routine Vitamin D deficiency Medication management Routine adult health maintenance 1 Occurrences starting 06/16/2023 until 03/12/2024 [facility] Work Phone: Comment on above: 1 Occurrences starting 06/16/2023 until 03/12/2024 End: 06-15-2024 Assay of thyroid stimulating hormone tsh TSH Lab Routine Multiple thyroid nodules Medication management Routine adult health maintenance Fatigue, unspecified type 1 Occurrences starting 06/16/2023 until 06/15/2024 [facility] [employer] Work Phone: Comment on above: 1 Occurrences starting 06/16/2023 until 06/15/2024 Bacteria identified in Urine by Culture BACTERIAL CULTURE, URINE Microbiology Routine 9 weeks gestation of 04/24/2024 9:26 AM [facility] End: 03-12-2024 Basic metabolic 2000 panel - Serum or Plasma BASIC METABOLIC PANEL Lab Routine Medication management Routine adult health maintenance Fatigue, unspecified type 1 Occurrences starting 06/16/2023 until 03/12/2024 [facility] [employer] Work Phone: Comment on above: 1 Occurrences starting 06/16/2023 until 03/12/2024 Chlamydia trachomatis+Neisseria gonorrhoeae DNA [Presence] in Unspecified specimen by VISHNU with probe detection GONORRHEA/CHLAMYDIA NAAT Lab Routine 9 weeks gestation of 04/24/2024 9:26 AM [facility] End: 03-12-2024 Cyanocobalamin vitamin b-12 VITAMIN B12 (CYANOCOBALAMIN) Lab Routine Vitamin B 12 deficiency Medication management Routine adult health maintenance Fatigue, unspecified type 1 Occurrences starting 06/16/2023 until 03/12/2024 [facility] [employer] Work Phone: Comment on above: 1 Occurrences starting 06/16/2023 until 03/12/2024 Cytology examination - general CYTOLOGY,FINE NEEDLE ASPIRATIONS Anatomic Pathology Routine Multiple thyroid nodules Ordered: 01/28/2023 [facility] [employer] Work Phone: Comment on above: Ordered: 01/28/2023 Cytology examination - general CYTOLOGY,FINE NEEDLE ASPIRATIONS Anatomic Pathology Routine Thyroid nodule Ordered: 05/13/2023 [facility] [employer] Work Phone: Comment on above: Ordered: 05/13/2023 End: 08-24-2025 nonstress test NON-STRESS TEST Procedures Routine Supervision of high risk in third trimester (HCC) Obesity affecting in third trimester, unspecified obesity type (HCC) Once per week for 7 Occurrences starting 09/03/2024 until 08/24/[address] [facility] Comment on above: Once per week for 7 Occurrences starting 09/03/2024 until 08/24/2025 End: 03-12-2024 Hepatic function panel HEPATIC FUNCTION PANEL Lab Routine Medication management Routine adult health maintenance Fatigue, unspecified type 1 Occurrences starting 06/16/2023 until 03/12/2024 [email or web address] Work Phone: Comment on above: 1 Occurrences starting 06/16/2023 until 03/12/2024 End: 08-18-2025 OBSTETRIC ULTRASOUND WHI OBSTETRIC ULTRASOUND WHI Anc Imaging Routine Supervision of high risk in third trimester (HCC) Obesity affecting in third trimester, unspecified obesity type (HCC) Once per month for 3 Occurrences starting 09/03/2024 until 08/18/[address] [facility] Comment on above: Once per month for 3 Occurrences startin g 09/03/2024 until 08/18/2025 Surgical pathology procedure [email or web address] Work Phone: Comment on above: Release Upon Ordering for 1 Occurrences starting 07/11/2023, 1 completed Thyroidectomy subste rnal cervical approach THYROIDECTOMY, W/SUBSTERNAL THYROID; CERVICAL APPROACH Procedures Routine Multiple thyroid nodules Ordered: 07/11/2023 [facility] Comment on above: Ordered: 07/11/2023 THYROIDECTOMY, TOTAL THYROIDECTO MY, TOTAL Routine scheduled Multiple thyroid nodules [email or web address] Work Phone: TRICHOMONAS VAGINALI S NAAT TRICHOMONAS VAGINALIS NAAT Lab Routine with uncertain dates, antepartum Screen for STD (sexually transmitted disease) 04/24/2024 9:[address] [facility] Unlisted chemistry procedure MISCELLANEOUS SEND OUT TEST Lab Routine Thyroid nodule 05/19/2023 9:20 AM EST [email or web address] Work Phone: Immunizations Immunization Date Immunization Notes Care Provider Alysha ware 09-03-2024 RHO(D) immune globul in- IV or IM Natasha Gavin APRN.CNM Work Phone: [facility] 09-03-2024 tetanus toxoid, redu wendie diphtheria toxoid, and acellular pertussis vaccine, adsorbed Natasha Gavin APRN.CN Work Phone: [facility] 03-23-2024 influenza, seasonal, injectable, preservative free Cleo Portillo MD Work Phone: [facility] 03-23-2024 influenza virus vacc ine, unspecified formulation Natasha Gavin APRN.CN Work Phone: [facility] 07-20-2023 Human Papillomavirus 9-valent vaccine Adore Morales MD Work Phone: [facility] 08-06-2022 Human Papillomavirus 9-valent vaccine 1 [facility] 08-06-2022 Pneumococcal conjuga te 20 valent (PCV20), polysaccharide [id number] conjugate, adjuvant, PF (UYJ=900) 1 [facility] 06-23-2022 Human Papillomavirus 9-valent vaccine Adore Morales MD Work Phone: [facility] 08-22-2020 Pfizer Monovalent (1 2+ yrs) SARS-COV-2 (COVID-19) vaccine, mRNA, spike protein, LNP, pres. free, 30 mcg/0.3mL dose (LQI=589) Adore Morales MD Work Phone: [facility] 08-01-2020 Pfizer Monovalent (1 2+ yrs) SARS-COV-2 (COVID-19) vaccine, mRNA, spike protein, LNP, pres. free, 30 mcg/0.3mL dose (ASS=077) Adore Morales MD Work Phone: [facility] 08-01-2020 tetanus toxoid, redu wendie diphtheria toxoid, and acellular pertussis vaccine, adsorbed Adore Morales MD Work Phone: [facility] 06-16-2015 meningococcal polysaccharide (groups A, C, Y and W-135) diphtheria toxoid conjugate vaccine (MCV4P) Adore Morales MD Work Phone: [facility] 04-28-2010 meningococcal polysaccharide (groups A, C, Y and W-135) diphtheria toxoid conjugate vaccine (MCV4P) Adore Morales MD Work Phone: [facility] 04-28-2010 tetanus toxoid, redu wendie diphtheria toxoid, and acellular pertussis vaccine, adsorbed Adore Morales MD Work Phone: [facility] 04-20-2002 diphtheria, tetanus toxoids and acellular pertussis vaccine, unspecified formulation Adore Morales MD Work Phone: [facility] 04-20-2002 measles, mumps and rubella virus vaccine Adore Morales MD Work Phone: [facility] 04-20-2002 poliovirus vaccine, inactivated Adore Morales MD Work Phone: [facility] 04-17-2001 varicella virus vaccine Diego Morales MD Work Phone: [facility] 02-09-2000 diphtheria, tetanus toxoids and acellular pertussis vaccine, unspecified formulation Adore Morales MD Work Phone: [facility] 02-09-2000 haemophilus influenz ae type b conjugate and Hepatitis B vaccine Adore Morales MD Work Phone: [facility] 07-10-1999 measles, mumps and rubella virus vaccine Adore Morales MD Work Phone: [facility] 07-10-1999 poliovirus vaccine, unspecified formulation Adore Morales MD Work Phone: [facility] 04-17-1999 hepatitis B vaccine, pediatric or pediatric/adolescent dosage Adore Morales MD Work Phone: [facility] 1998 diphtheria, tetanus toxoids and pertussis vaccine Adore Morales MD Work Phone: [facility] 1998 haemophilus influenz ae type b vaccine, conjugate unspecified formulation Adore Morales MD Work Phone: [facility] 1998 diphtheria, tetanus toxoids and pertussis vaccine Adore Morales MD Work Phone: [facility] 1998 haemophilus influenz ae type b vaccine, conjugate unspecified formulation Adore Morales MD Work Phone: [facility] 1998 poliovirus vaccine, unspecified formulation Adore Morales MD Work Phone: [facility] 1998 diphtheria, tetanus toxoids and pertussis vaccine Adore Morales MD Work Phone: [facility] 1998 haemophilus influenz ae type b vaccine, conjugate unspecified formulation Adore Morales MD Work Phone: [facility] 1998 poliovirus vaccine, unspecified formulation Adore Morales MD Work Phone: [facility] 1998 hepatitis B vaccine, pediatric or pediatric/adolescent dosage Adore Morales MD Work Phone: [facility] 1998 hepatitis B vaccine, pediatric or pediatric/adolescent dosage Adore Morales MD Work Phone: [facility] Payers Date Payer Category Payer Self-pay 2024 Private Health [place] [address] [id number] 2024 Unknown UNKNOWN 2022 Medicaid [id number] 2022 [facility] [id number] 2022 Medicaid [id number] 2020 Unknown BCBS BCBS OUT OF STATE [id number] 2020-Present [address] [place] [address] [id number] 2014 Unknown [id number] 1998 Unknown [id number] 1998 Unknown [id number] 1998 Unknown [id number] 1998 Unknown [id number] 1998 Unknown [id number] [id number] 1998 Unknown [id number] 732 1998 Unknown [id number] [id number] 1998 Unknown [id number] 732 1998 Unknown [id number] Unknown Unknown [id number] Unknown [id number] Social History Date Type Detail Facility Start: 03-24-2020 Tobacco smoking status NHIS Current some day smoker [place], [place] History of tobacco use Cigarette Smoker [place] Start: 03-24-2020 End: 01-28-2023 Tobacco use and exposure Never used [place] Start: 03-24-2020 End: 07-04-2024 Alcohol intake Current drinker of alcohol (finding) [place] Start: 03-24-2020 History SDOH Alcohol Frequency 4 [place] Start: 03-24-2020 History SDOH Alcohol Binge 3 [place] Start: 03-24-2020 Tobacco Comment only when she is drinking [place] Start: 1998 Sex Assigned At Not on file [place] Start: 06-13-2022 End: 06-23-2022 Exposure to SARS-CoV-2 (event) Not sure [place] Start: 06-23-2022 End: 01-28-2023 Tobacco smoking status NHIS Smokes tobacco daily [facility] Tobacco smoking consumption unknown [facility] Start: 08-06-2022 End: 05-15-2024 Gender identity Not [facility] Start: 01-28-2023 Tobacco Comment THC [facility] Start: 08-06-2022 End: 05-15-2024 History of Social function [facility] Within the last year , have you been afraid of your partner or ex-partner? No [facility] Are you now , , , , never or living with a partner? Never [email or web address] Work Phone: How hard is it for y ou to pay for the very basics like food, housing, medical care, and heating Not very hard [email or web address] Work Phone: Start: 06-16-2020 Adolescent depression screening assessment 0 [facility] Do you feel stress - tense, restless, nervous, or anxious, or unable to sleep at night because your mind is troubled all the time - these days [OSQ] Only a little [email or web address] Work Phone: (I/We) worried rochelle er (my/our) food would run out before (I/we) got money to buy more. Sometimes true [email or web address] Work Phone: The food that (I/we) bought just didn't last, and (I/we) didn't have money to get more. Never true [facility] Start: 08-06-2022 Education 21 [employer] Work Phone: Start: 06-13-2023 Tobacco Comment THC , Nicotine vape [employer] Work Phone: Start: 06-13-2023 Alcohol Comment occasional [employer] Work Phone: Start: 06-28-2023 End: 06-11-2024 Tobacco smoking status ORIS Ex-smoker [facility] Start: 06-28-2023 End: 08-18-2023 Tobacco use and exposure User of smokeless tobacco [facility] Start: 06-28-2023 Alcohol Comment Social/Special Occasion [facility]inker [facility] How often to you hav e a drink containing alcohol? Monthly or less [facility] How many standard drinks containing alcohol do you have on a typical day? 1 or 2 [facility] How often do you hav e 6 or more drinks on 1 occasion? Never [facility] Start: 2000 Sex assigned at Female [facility] Start: 06-16-2020 End: 06-11-2024 Tobacco use and exposure Former smokeless tobacco user [facility] Start: 04-24-2024 End: 11-05-2024 Alcoholic beverage intake Ex-drinker (finding) [facility] Start: 04-23-[address] [facility] Start: 02-29-[address] [facility] Start: 04-23-2024 Gender identity Identifies as female gender (finding) [facility] Start: 04-23-2024 Sexual orientation Bisexual (finding) [facility] Start: 04-21-2022 Sex Female (finding) [facility] Start: 03-23-2024 End: 07-04-2024 Details of drug misuse behavior Misuses drugs (finding) [facility] Start: 03-23-2024 End: 07-04-2024 Details of drug misuse behavior Cannabis (substance) [facility] Start: 03-23-2024 End: 07-04-2024 Details of drug misuse behavior 7 uses per week [facility] Start: 03-23-2024 End: 07-04-2024 History of sexual behavior Currently not sexually active [facility] The thought of tatyi ng myself has occurred to me Hardly ever [facility] Clinical Notes 06-23-2022 to 11-09-2024 Rey Tobias - 11/08/2024 10:56 AM EDTPrenatal Quick Notes - Natasha Gavin APRN.[facility] - 11/05/2024 10:56 AM Natasha Mix APRN.[facility] - 11/05/2024 10:56 AM EDTPatient InstructionsAttachments Note Date & Type Note Facility 11-09-2024 Note HNO ID: [id number] Author: REY TOBIAS, ? Service: ? Author Type: Patient Staff Mechanical Engineer Type: Progress Notes Filed: 11/09/2024 09:38 Note Text: POPULATION HEALTH NAVIGATION OUTREACH Action/FYI 3rd attempt left message to add economic research assistant to ob provider field Reason for Outreach Medicaid OB/Peds Care Gaps due: to PCP Visit Patient Contacted: Unable or unnecessary to reach patient: Unable to reach patient Left message Navigation Signature: Rey Tobias Population Health Navigator November 09, 2024 9:37 AM [facility] 11-08-2024 Note HNO ID: [id number] Author: REY TOBIAS, ? Service: ? Author Type: Patient Staff Mechanical Engineer Type: Progress Notes Filed: 11/08/2024 10:58 Note Text: POPULATION HEALTH NAVIGATION OUTREACH Action/FYI Left message to add economic research assistant to OB provider field, verify/est pcp My chart sent Reason for Outreach Medicaid OB/Peds Care Gaps due: to PCP Visit Patient Contacted: Unable or unnecessary to reach patient: Unable to reach patient Left message MyChart message sent Navigation Signature: Rey Tobias Population Health Navigator November 08, 2024 10:58 AM [facility] 11-08-2024 History of Present illness Narrative POPULATION HEALTH NAVIGATION OUTREACH Action/FYI Left message to add economic research assistant to OB provider field, verify/est pcp My chart sent Reason for Outreach Medicaid OB/Peds Care Gaps due: to PCP Visit Patient Contacted: Unable or unnecessary to reach patient: Unable to reach patient Left message MyChart message sent Navigation Signature: Rey Tobias Population Health Navigator November 08, 2024 10:58 AM documented in this encounter [facility] 11-08-2024 Note Patient Outreach (NE TNAV) WALTER ANDRADE ([id number]) 2000 F Date Time Provider Department 11/08/24 REY TOBIAS NETDUNIAV During your visit today, we recorded the following information about you: Rey Tobias 11/08/2024 10:58 AM Signed POPULATION HEALTH NAVIGATION OUTREACH Action/FYI Left message to add economic research assistant to OB provider field, verify/est pcp My chart sent Reason for Outreach Medicaid OB/Peds Care Gaps due: to PCP Visit Patient Contacted: Unable or unnecessary to reach patient: Unable to reach patient Left message [email or web address] message sent Navigation Signature: Rey Tobias Population Health Navigrose November 08, 2024 10:58 AM Rey Tobias 11/09/2024 9:38 AM Signed POPULATION HEALTH NAVIGATION OUTREACH Action/FYI 3rd attempt left message to add economic research assistant to ob provider field Reason for [...] tablet by mouth every other day. - iuc15-whtv-rexdn acid (PRENATA) 29 mg iron- 1 mg [...] Encounter Status:Closed by REY TOBIAS on 11/08/24 [facility] 11-05-2024 Note HNO ID: [id number] Author: NATASHA GAVIN APRN.CNM Service: ? Author Type: Hand Mounter Type: Progress Notes Filed: 11/05/2024 11:47 Note [...] Date Noted Pyelectasis of fetus on ultrasound ([facility]) 09/21/2024 Overview Note: Resolved at 32 week ultrasound. Lima Kim APRN.CNM Repeat ultrasound Elevated glucose 09/03/2024 Overview Note: 09/19/24- 3 hour GTT normal. Lima Kim APRN.CNM 09/03/24- 1 hour elevated. 3 hour GTT ordered. Lima Kim APRN.CNM Depression during 08/08/2024 GBS bacteriuria 06/11/2024 Obesity in ([facility]) 05/22/2024 Rh negative state in antepartum period ([facility]) 05/17/2024 Supervision of high risk in first trimester ([facility]) 04/24/2024 Overview Note: Care Checklist Vaccines: [x] [...] (28-30 weeks): [] Consent [] Contraception [x] Membership Director [] TeamBirth handout Third trimester (36-40 weeks): [...] 1 tablet by mouth once daily. Yes [id number]-yuvv-ggbzt acid (PRENATA) 29 mg iron- 1 mg chew Take 1 tablet by mouth once daily. No medication comments found. REVIEW OF SYSTEMS: The remainder of the review of systems is negative. OBJECTIVE: SENSITIVE EXAM: The sensitive examination was discussed with the Patient or Patient's Authorized Hat Marker. As applicable, any other physician, advance practice provider, medical student, or other health professional student that will be observing or involved in the sensitive examination for educational or training purposes was discussed with the Patient or Authorized Hat Marker. The Patient or Authorized Hat Marker has agreed to proceed (more content not included)... [facility] 11-05-2024 Progress note Formatting of t [...] discussed with the Patient or Patient's Authorized Hat Marker. As applicable, any other physician, advance practice provider, medical student, or other health professional student that will be observing or involved in the sensitive examination for educational or training purposes was discussed with the Patient or Authorized Hat Marker. The Patient or Authorized Hat Marker has agreed to proceed with the sensitive [...] RTO for PP visit Natasha Gavin APRN.CNM [facility] 11-05-2024 History of Present illness Narrative [...] Date Noted Pyelectasis of fetus on ultrasound ([facility]) 09/21/2024 Overview Note: Resolved at 32 week ultrasound. Lima Kim APRN.CNM Repeat ultrasound Elevated glucose 09/03/2024 Overview Note: 09/19/24- 3 hour GTT normal. Lima Kim APRN.CNM 09/03/24- 1 hour elevated. 3 hour GTT ordered. Lima Kim APRN.CNM Depression during 08/08/2024 GBS bacteriuria 06/11/2024 Obesity in ([facility]) 05/22/2024 Rh negative state in antepartum period ([facility]) 05/17/2024 Supervision of high risk in first trimester ([facility]) 04/24/2024 Overview Note: Care Checklist Vaccines: [x] [...] (28-30 weeks): [] Consent [] Contraception [x] Membership Director [] TeamBirth handout Third trimester (36-40 weeks): [] GBS [] Presentation - [] Scheduled [] yes - Hibiclens, pre-op instructions, CBC, T&S ordered [] no [] H&P [] Preferences worksheet [] Scanned in EMR [] Patient to bring copy to hospital [] Declined BMI 40.0-44.9, adult ([facility]) 04/24/2024 Postablative hypothyroidism PCOS (polycystic ovarian syndrome) [...] 1 tablet by mouth once daily. Yes pie93-nhrm-icbgw acid (PRENATA) 29 mg iron- 1 mg chew Take 1 tablet by mouth once daily. No medication comments found. REVIEW OF SYSTEMS: The remainder of the review of systems is negative. OBJECTIVE: SENSITIVE EXAM: The sensitive examination was discussed with the Patient or Patient's Authorized Hat Marker. As applicable, any other physician, advance practice provider, medical student, or other health professional student that will be observing or involved in the sensitive examination for educational or training purposes was discussed with the Patient or Authorized Hat Marker. The Patient or Authorized Hat Marker has agreed to proceed with the sensitive [...] Currently Types: Marijuana documented in this encounter [facility] 11-05-2024 Miscellaneous Notes DARRELL-S: Walter Andrade [...] discussed with the Patient or Patient's Authorized Hat Marker. As applicable, any other physician, advance practice provider, medical student, or other health professional student that will be observing or involved in the sensitive examination for educational or training purposes was discussed with the Patient or Authorized Hat Marker. The Patient or Authorized Hat Marker has agreed to proceed with the sensitive [...] Natasha Gavin APRN.CNM documented in this encounter [facility] 11-05-2024 Instructions Chela Padron LPN - 11/05/2024 10:21 AM EDT SEQUENTIAL SCREENINGS The [facility] offers sequential screenings for women who [...] It will require an appointment with our boiler control technician. This is not an ultrasound performed [...] the above symptoms, contact our office at [phone] and ask to speak with a nurse. After hours, you can call doctors registry at [phone] OR call [facility] at [phone] and ask to have the doctor product applications engineer paged. If you consider this an emergency, dial or go to your nearest emergency department. NEED HELP? Are you dealing with a violent or abusive relationship? Are you a victim of rape or sexual assult? Call [facility] ([place]) 24 hour Crisis Hotline: 838.354.1252 or 041-261-2329. MANUAL Your Guide to a Healthy manual is now on-line. Visit [email or web address] to download your free copy documented in this encounter [facility] 10-30-2024 Note Indication Evaluation of growth, [...] Hadlock Femur 66.8 mm 34w 0d 18% Geoff EFW 3,011 g 36w 6d 55% Hadlock EFW (lb) 6 lb EFW (oz) 10 oz EFW by: Hadlock (HC-AC-FL) Extended Engineering Patternmaker 5.3 mm Extremities / Bony Struc FL [...] M.D. [facility] 10-29-2024 Note HNO ID: [id number] Author: RENETTA HERNANDEZ MD Service: ? Author [...] - RTO 1 wk Renetta Hernandez DO [facility] 10-29-2024 History of Present illness Narrative [...] Renetta Hernandez DO documented in this encounter [facility] 10-29-2024 Progress note Formatting of t his note might be different from the original. SW- pt doing well. [facility] 10-29-2024 Miscellaneous Notes SW- pt doing well. documented in this encounter [facility] 10-29-2024 Soila Gonzalez MA - 10/29/2024 2:21 PM EDT SEQUENTIAL SCREENINGS The [facility] offers sequential screenings for women who [...] It will require an appointment with our boiler control technician. This is not an ultrasound performed [...] the above symptoms, contact our office at [phone] and ask to speak with a nurse. After hours, you can call doctors registry at [phone] OR call [facility] at [phone] and ask to have the doctor product applications engineer paged. If you consider this an emergency, dial 0-0-4 or go to your nearest emergency department. NEED HELP? Are you dealing with a violent or abusive relationship? Are you a victim of rape or sexual assult? Call [facility] ([place]) 24 hour Crisis Hotline: 339.554.7193 or 282-144-2486. MANUAL Your Guide to a Healthy manual is now on-line. Visit [email or web address] to download your free copy documented in this encounter [facility] 10-22-2024 Progress note Formatting of t [...] Supervision of high risk in third trimester ([facility]) - ICD9: V23.9, ICD10: O09.93 - URINE OB DIP B/O 3. Obesity affecting in third trimester, unspecified obesity type (HCC) - ICD9: 649.13, ICD10: O99.213 Weekly NSTs Growth q 4 - URINE OB DIP B/O Bushra Roa MD [facility] 10-22-2024 Note HNO ID: [id number] Author: BUSHRA ROA MD Service: ? Author Type: Physician Type: Progress Notes Filed: 10/22/2024 11:17 Note Text: NST SUMMARY PROVIDER ASSESSMENT AND INTERPRETATION Indications for NST: Obesity Baseline: 125 Variability: Moderate Accelerations: Present 15 X 15 Decelerations: None Interpretation: Reactive SIGNATURE: Bushra Roa MD [facility] 10-22-2024 History of Present illness Narrative NST SUMMARY PROVIDER ASSESSMENT AND INTERPRETATION Indications for NST: Obesity Baseline: 125 Variability: Moderate Accelerations: Present 15 X 15 Decelerations: None Interpretation: Reactive SIGNATURE: Bushra Roa MD documented in this encounter [facility] 10-22-2024 Miscellaneous Notes S: Walter Andrade [...] URINE OB DIP B/O Bushra Roa MD documented in this encounter [facility] 10-22-2024 Instructions Soila Sanchez LEATHA - 10/22/2024 10:44 AM EDT SEQUENTIAL SCREENINGS The [facility] offers sequential screenings for women who [...] It will require an appointment with our boiler control technician. This is not an ultrasound performed [...] the above symptoms, contact our office at [phone] and ask to speak with a nurse. After hours, you can call doctors registry at [phone] OR call [facility] at [phone] and ask to have the doctor product applications engineer paged. If you consider this an emergency, dial 9-1-1 or go to your nearest emergency department. NEED HELP? Are you dealing with a violent or abusive relationship? Are you a victim of rape or sexual assult? Call [facility] ([place]) 24 hour Crisis Hotline: 447.800.1316 or 445-337-0143. MANUAL Your Guide to a Healthy manual is now on-line. Visit [email or web address] to download your free copy documented in this encounter [facility] 10-15-2024 Note HNO ID: [id number] Author: LIMA KIM APRN.CNM Service: ? Author Type: Hand Mounter Type: Progress Notes Filed: 10/15/2024 12:28 Note Text: NST SUMMARY PROVIDER ASSESSMENT AND INTERPRETATION Walter Andrade is a 24 year old female, , who is at 34w5d with an GASPER of 11/21/2024, by Ultrasound dating method. Indications for NST: Obesity Baseline: 140 Variability: Moderate Accelerations: Present 15 X 15 Decelerations: None Contractions: TOCO: None Interpretation: Reactive SIGNATURE: Lima Kim APRN.CNM [facility] 10-15-2024 History of Present illness Narrative NST SUMMARY PROVIDER ASSESSMENT AND INTERPRETATION Walter Andrade is a 24 year old female, , who is at 34w5d with an GASPER of 11/21/2024, by Ultrasound dating method. Indications for NST: Obesity Baseline: 140 Variability: Moderate Accelerations: Present 15 X 15 Decelerations: None Contractions: TOCO: None Interpretation: Reactive SIGNATURE: Lima Kim APRN.CNM documented in this encounter [facility] 10-15-2024 Progress note Formatting of t [...] - RTO 1 week Lima Kim APRN.CNM [facility] 10-15-2024 Miscellaneous Notes S: Walter Andrade [...] Lima Kim APRN.CNM documented in this encounter [facility] 10-15-2024 Instructions Eladio Pierre LPN - 10/15/2024 11:13 AM EDT SEQUENTIAL SCREENINGS The [facility] offers sequential screenings for women who [...] It will require an appointment with our boiler control technician. This is not an ultrasound performed [...] the above symptoms, contact our office at [phone] and ask to speak with a nurse. After hours, you can call doctors registry at [phone] OR call [facility] at [phone] and ask to have the doctor product applications engineer paged. If you consider this an emergency, dial 0-1- or go to your nearest emergency department. NEED HELP? Are you dealing with a violent or abusive relationship? Are you a victim of rape or sexual assult? Call [facility] ([place]) 24 hour Crisis Hotline: 420.470.8158 or 478-356-2794. MANUAL Your Guide to a Healthy manual is now on-line. Visit [email or web address] to download your free copy documented in this encounter [facility] 10-08-2024 Progress note Formatting of t [...] Supervision of high risk in third trimester ([facility]) - ICD9: V23.9, ICD10: O09.93 (primary diagnosis) - URINE OB DIP B/O 2. Obesity affecting in third trimester, unspecified obesity type ([facility]) - ICD9: 649.13, ICD10: O99.213 Growth q 4 Weekly NST - URINE OB DIP B/O 3. Hypothyroidism, unspecified type - ICD9: 244.9, ICD10: E03.9 - URINE OB DIP B/O 4. Depression during in third trimester ([facility]) - ICD9: 648.43, ICD10: O99.343, F32.A - URINE OB DIP B/O 5. 33 weeks gestation of ([facility]) - ICD9: V22.2, ICD10: Z3A.33 - URINE OB DIP B/O 6. Anemia during in third trimester ([facility]) - ICD9: 648.23, ICD10: O99.013 Oral iron Recheck at 36 weeks Bushra Roa MD [facility] 10-08-2024 Miscellaneous Notes S: Walter Andrade [...] Supervision of high risk in third trimester ([facility]) - ICD9: V23.9, ICD10: O09.93 (primary diagnosis) - URINE OB DIP B/O 2. Obesity affecting in third trimester, unspecified obesity type ([facility]) - ICD9: 649.13, ICD10: O99.213 Growth q 4 Weekly NST - URINE OB DIP B/O 3. Hypothyroidism, unspecified type - ICD9: 244.9, ICD10: E03.9 - URINE OB DIP B/O 4. Depression during in third trimester ([facility]) - ICD9: 648.43, ICD10: O99.343, F32.A - URINE OB DIP B/O 5. 33 weeks gestation of ([facility]) - ICD9: V22.2, ICD10: Z3A.33 - URINE OB DIP B/O 6. Anemia during in third trimester ([facility]) - ICD9: 648.23, ICD10: O99.013 Oral iron Recheck at 36 weeks Bushra Roa MD documented in this encounter [facility] 10-08-2024 Instructions Amy Chiu MA - 10/08/2024 11:04 AM EDT SEQUENTIAL SCREENINGS The [facility] offers sequential screenings for women who [...] It will require an appointment with our boiler control technician. This is not an ultrasound performed [...] the above symptoms, contact our office at [phone] and ask to speak with a nurse. After hours, you can call doctors registry at [phone] OR call [facility] at [phone] and ask to have the doctor product applications engineer paged. If you consider this an emergency, dial 9-1-1 or go to your nearest emergency department. NEED HELP? Are you dealing with a violent or abusive relationship? Are you a victim of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 05/17/24 7:28 AM Pt needs to follow up with her rubber chemist for elevated TSH. Please add to ob record. \Dina Sanchez APRN.CNP [facility] 05-17-2024 Telephone encounter Note Pt needs to follow up with her rubber chemist for elevated TSH. Please add to ob record. \Dina Sanchez APRN.CNP [facility] 05-17-2024 Miscellaneous Notes Pt needs to follow up with her rubber chemist for elevated TSH. Please add to ob record. \Dina Sanchez APRN.CNP documented in this encounter [facility] 05-15-2024 Telephone encounter Note Filed Theodora Deluca MD [facility] Work Phone: 05-15-2024 Miscellaneous Notes Filed Theodora Deluca MD Patient 12w6d, here today for NT ultrasound and is asking for blood work to be added for [id number]. Order pended. Laurie Bueno RN documented in this encounter [facility] 05-15-2024 Telephone encounter Note Patient 12w6d, here today for NT ultrasound and is asking for blood work to be added for [id number]. Order pended. Laurie Bueno RN [facility] 04-24-2024 Note HNO ID: [id number] Author: DINA SANCHEZ APRN.ALMOND PASTE MIXER Service: ? Author Type: Nurse Practitioner Type: Progress Notes Filed: 04/24/2024 09:57 Note Text: Knapsack Sprayer offered: Patient declines. INITIAL OB ASSESSMENT HPI: [...] Partner: Name: Rober [place] Age: 27 Occupation: [employer] Gender: Male PAST MEDICAL HISTORY Diagnosis Date [...] on 04/23/2024) s (more content not included)... [facility] 04-24-2024 History of Present illness Narrative Knapsack Sprayer offered: Patient declines. INITIAL OB ASSESSMENT HPI: [...] Partner: Name: Rober [place] Age: 27 Occupation: [employer] Gender: Male PAST MEDICAL HISTORY Diagnosis Date [...] discussed with the Patient or Patient's Authorized Hat Marker. As applicable, any other physician, advance practice provider, medical student, or other health professional student that will be observing or involved in the sensitive examination for educational or training purposes was discussed with the Patient or Authorized Hat Marker. The Patient or Authorized Hat Marker has agreed to proceed with the sensitive [...] and POCUS performed. +cardiac activity Dina Sanchez APRN.ALMOND PASTE MIXER SBIRT Walter Andrade was given the 4's [...] Your guide to a health and the Electronic Induction Hardener. Reviewed midwifery and service rig operator services that are available. 2) Screening: Hemoglobin [...] Dina Sanchez APRN.CNP documented in this encounter [facility] 04-24-2024 Instructions Sophia Gong MA - 04/24/2024 8:15 AM EST Please select the following link to access the [facility] Your Guide to a Healthy . [email or web address] documented in this encounter [facility] 03-31-2024 Telephone encounter Note See sep msg [facility] 03-31-2024 Miscellaneous Notes See sep msg Patient [...] at this time. Pt did not access VividCortex message/ results/ please call TSH (thryoid function) 8.163 ASSUMING NO MISSED DOSES X 6W THEN -your dose needs to be INCREASED; current levothyroxine (SYNTHROID) 150 MCG new 175 mcg : rx sent ; recheck labs due in 6+ wks Adore Morales MD Written by Adore Morales MD on 03/24/2024 10:57 AM EST documented in this encounter [facility] 03-29-2024 Telephone encounter Note Patient was identified [...] the synthroid could have raised the level. [facility] 03-28-2024 Telephone encounter Note Attempted to call patient at listed number. Mailbox is full and cannot accept any messages at this time. [facility] 03-27-2024 Telephone encounter Note Pt did not access VividCortex message/ results/ please call TSH (thryoid function) 8.163 ASSUMING NO MISSED DOSES X 6W THEN -your dose needs to be INCREASED; current levothyroxine (SYNTHROID) 150 MCG new 175 mcg : rx sent ; recheck labs due in 6+ wks Adore Morales MD Written by Adore Morales MD on 03/24/2024 10:57 AM EST [facility] 03-24-2024 Note Addended by: ADORE MORALES on: 03/24/2024 10:57 AM Modules accepted: Orders [facility] 03-24-2024 History of Present illness Narrative TSH [...] was: Administered Provider received consent from patient/parent/patient off premise service representative for immunization(s) as ordered, questionnaire completed and VIS educational handouts reviewed with patient/parent/patient off premise service representative who denies contraindications Double identification of patient completed with patient/parent/patient off premise service representative using name and prior to administration, and patient tolerated immunization(s) administration without incident. Images from the original note were not included. ?/ * * . Family Medicine /? * * . ... . . * * / \ Adore Morales MD [address] [address] Chief Complaint Patient presents with Test Pt [...] My current schedule : Tuesday and Tuesday [facility] Tuesday [place] Tuesday: Telephone and Video virtual appointments: available [...] Prior to Visit Medication Sig Dispense Refill vcnbapu-psatrndsxffuy-wzbkgaje (Excedrin Extra Strength) 250-250-65 MG TABS tablet [...] (CVX=01) 1998, 1998, 1998 DTaP, unspecified formulation (LYN=773) 02/09/2000, 04/20/2002 HPV, 9-valent (Gardasil 9) (FCM=001) 06/23/2022, 08/06/2022, 07/20/2023 Hep B (peds/adol, 3-dose) (CVX=08) 1998, 1998, 04/17/1999 Hep B/HIB (Comvax) (CVX=51) 02/09/2000 Hib, unspecified formulation (CVX=17) 1998, 1998, 1998 MMR, Rqsoumf-Xboyf-Lrcetsw (CVX=03) 07/10/1999, 04/20/2002 Meningococcal conjugate (MCV4,Men-ACWY), Menactra (MCV4P) (SHX=595) 04/28/2010, 06/16/2015 Pfizer Monovalent (12+ yrs) SARS-COV-2 (COVID-19) vaccine, mRNA, spike protein, LNP, pres. free, 30 mcg/0.3mL dose (DMT=960) 08/01/2020, 08/22/2020 Pneumococcal conjugate 20 valent (PCV20), polysaccharide SNR679 conjugate, adjuvant, PF (BZO=685) 08/06/2022 Polio, inactivated (IPV) (CVX=10) 04/20/2002 Polio, unspecified formulation (CVX=89) 1998, 1998, 07/10/1999 Tdap (FQG=227) 04/28/2010, 08/01/2020 Varicella (Chickenpox) (CVX=21) 04/17/2001 Pended Date(s) Pended Influenza, injectable, trivalent, preservative free (RYM=179) 03/23/2024 Destinaravindnicole was seen today for test. [...] not reported separately) Referring/communicating with other health patient care specialist - when not reported separately Charting in [facility] ~~~~~~~~~~~~~~~~~~~~~~~~~~~~~~~~~~~ ~~~~~~~~ Relevant Past Data ~~~~recent past visits/ consult :partial copy/ edited for clarity & brevity~~~~~~~~~~~~~~~~~~ Precharting [facility] chart review: past visits/ consults /labs / [...] vaping and daily marijuana Recommend stopping all rxsd-rev-syqqnjt medications Continue to avoid a vaping nicotine: Quit. Recommend avoiding daily marijuana use Alert me if had headaches recur See ASSISTANT DIRECTOR OF SECURITY as planned ~~~~~~~~~~~~~~~~~~~~~~~~~~~~~~ HPI: ER follow-up (Patient [...] VACCINATED not fully boosted Office Visit 07/21/2023 [facility] Surgery General Vick Kincaid MD General Surgery [...] Adore Morales MD documented in this encounter [facility] 03-24-2024 Miscellaneous Notes Addended by: ADORE MORALES on: 03/24/2024 10:57 AM Modules accepted: Orders documented in this encounter [facility] 03-23-2024 Instructions Annabella Young MA - 03/23/2024 [...] My current schedule : Tuesday and Tuesday [place], [place] Tuesday: Telephone and Video virtual appointments: available [...] any problems or questions, please call the [facility] line at [phone]. The following attachments cannot be sent through Care Everywhere.How to plan and prepare for a healthy ([place]) The First Month ([place]) care ([place])documented in this encounter [facility] 07-21-2023 Note Addended by: VICK KINCAID on: 07/21/2023 10:59 AM Modules accepted: Orders [facility] 07-21-2023 Note Addended by: VICK KINCAID on: 07/21/2023 10:59 AM Modules accepted: Orders [facility] 07-21-2023 Note Addended by: VICK KINCAID on: 07/21/2023 10:59 AM Modules accepted: Orders [facility] 07-21-2023 Note Addended by: VICK KINCAID on: 07/21/2023 10:59 AM Modules accepted: Orders [facility] 07-21-2023 Miscellaneous Notes Addended by: VICK KINCAID on: 07/21/2023 10:59 AM Modules accepted: Orders documented in this encounter [facility] 07-21-2023 History of Present illness Narrative The [...] for laryngoscopic exam. documented in this encounter [facility] 07-21-2023 History of Present illness Narrative The [...] 08/26/2023 TSH 2.684 documented in this encounter [facility] 07-20-2023 Instructions Darya Hills - 07/20/2023 4:46 PM EDT Hpv #3 today Your headaches are improved since ER visit They are likely multifactorial including anesthesia, daily acetaminophen and ibuprofen, stopping vaping and daily marijuana Recommend stopping all unmx-ape-drqfuvj medications Continue to avoid a vaping nicotine: Quit. Recommend avoiding daily marijuana use Alert me if had headaches recur See ASSISTANT DIRECTOR OF SECURITY as planned ~~Dr Restrepo .?/ ./? ./ \ . * * . ... . . * * . ... . Adore Morales MD . * * . ... . . * * . ... . . * * . ... . . * * . Thank you for your confidence and trust My current schedule : Tuesday and Tuesday [facility] Tuesday: Telephone and Video virtual appointments: available [...] any problems or questions, please call the [facility] line at [phone]. documented in this encounter [facility] 07-20-2023 History of Present illness Narrative Images from the original note were not included. ..?/ Family Medicine ../? * * . ... . . * * . / \ Adore Morales MD [facility] Family Medicine [id number] [facility] [address] Chief Complaint Patient presents with ER follow-up [...] vaping and daily marijuana Recommend stopping all pfhq-qcg-szyelfd medications Continue to avoid a vaping nicotine: Quit. Recommend avoiding daily marijuana use Alert me if had headaches recur See ASSISTANT DIRECTOR OF SECURITY as planned ~~Dr Restrepo .?/ ./? ./ \ . * * . ... . . * * . ... . Adore Morales MD . * * . ... . . * * . ... . . * * . ... . . * * . Thank you for your confidence and trust My current schedule : Tuesday and Tuesday [place], [place] Tuesday: Telephone and Video virtual appointments: available [...] Physician (General Surgery) Kajal Khan RN as Diet Supervisor (Care Management) Current Outpatient Medications on File Prior to Visit Medication Sig Dispense Refill nvwexby-rowfaixavdnox-prplufmq (Excedrin Extra Strength) 250-250-65 MG TABS tablet [...] (CVX=01) 1998, 1998, 1998 DTaP, unspecified formulation (IXU=775) 02/09/2000, 04/20/2002 HPV, 9-valent (Gardasil 9) (USC=770) 06/23/2022, 08/06/2022 Hep B (peds/adol, 3-dose) (CVX=08) 1998, 1998, 04/17/1999 Hep B/HIB (Comvax) (CVX=51) 02/09/2000 Hib, unspecified formulation (CVX=17) 1998, 1998, 1998 MMR, Oxtcatx-Pzaij-Bgybnnt (CVX=03) 07/10/1999, 04/20/2002 Meningococcal conjugate (MCV4,Men-ACWY), Menactra (MCV4P) (FTA=295) 04/28/2010, 06/16/2015 Pfizer Monovalent (12+ yrs) SARS-COV-2 (COVID-19) vaccine, mRNA, spike protein, LNP, pres. free, 30 mcg/0.3mL dose (MNK=200) 08/01/2020, 08/22/2020 Pneumococcal conjugate 20 valent (PCV20), polysaccharide VOP481 conjugate, adjuvant, PF (DXU=554) 08/06/2022 Polio, inactivated (IPV) (CVX=10) 04/20/2002 Polio, unspecified formulation (CVX=89) 1998, 1998, 07/10/1999 Tdap (AAM=729) 04/28/2010, 08/01/2020 Varicella (Chickenpox) (CVX=21) 04/17/2001 Pended Date(s) Pended HPV, 9-valent (Gardasil 9) (MOB=219) 07/20/2023 Walter was seen today for er [...] not reported separately) Referring/communicating with other health patient care specialist - when not reported separately Charting in Epic ~~~~~~~~~~~~~~~~~~~~~~~~~~~~~~~~~~~ ~~~~~~~~ Relevant Past Data ~~~~recent past visits/ consult :partial copy/ edited for clarity & brevity~~~~~~~~~~~~~~~~~~ Precharting [facility] chart review: past visits/ consults /labs / [...] No speech difficulty. She was seen in [facility] Care and was treated [...] ED Course User Index [BJ] Erin Littlejohn, CELLAR SUPERVISOR-ALMOND PASTE MIXER [JS] Darius Franco MD Assessment & Plan: [...] was: Administered Provider received consent from patient/parent/patient off premise service representative for immunization(s) as ordered, questionnaire completed and VIS educational handouts reviewed with patient/parent/patient off premise service representative who denies contraindications. Double identification of patient completed with patient/parent/patient off premise service representative using name and prior to administration, and patient tolerated immunization(s) administration without incident. documented in this encounter [facility] 07-18-2023 Telephone encounter Note Emergency/CDU-Observation Room Follow Up Call Date and Reason for ED visit: 07/16/23 Headache Patient/Family contact reached: Yes Patient ID by name,address and . ID myself and role of Focusing Machine Operator Medical coverage: Payor: [employer] / Plan: [employer] MEDICAID HMO / Product Type: Medicaid HMO Current symptoms or concerns: Pt feeling better today No new symptoms Discharge AVS Instructions Reviewed: Yes Discharge Medications: None Has medication(s) been picked up from the pharmacy? N/a Recommendations for follow up: Pt to follow up with PCP Accepted Focusing Machine Operator's offer to schedule appt.? Yes Follow up Appointments: Future Appointments (next 10) Provider Department Center 07/20/2023 4:20 PM (Arrive by 4:10 PM) Adore Morales MD [facility] 07/22/2023 9:00 AM Vick Kincaid MD [facility] 10/04/2023 10:45 AM Perfecto Cam MD [facility] MACARONI PRESS OPERATOR Swisher Transportation: yes Patient verbalized understanding by repeating instructions correctly and agrees with Plan of Care as discussed above. Referred to Senior Ui Ux Designer: No Barriers or Concerns:No Dental Care Screening: Have you been to the dentist within the year :NA If no, can I assist with making you an appointment: NA SDOH Reviewed:Yes Letter mailed:No [facility] 07-18-2023 Miscellaneous Notes Emergency/CDU-Observation Room Follow Up Call Date and Reason for ED visit: 07/16/23 Headache Patient/Family contact reached: Yes Patient ID by name,address and . ID myself and role of Focusing Machine Operator Medical coverage: Payor: [employer] / [facility] / Product Type: Medicaid HMO Current symptoms or concerns: Pt feeling better today No new symptoms Discharge AVS Instructions Reviewed: Yes Discharge Medications: None Has medication(s) been picked up from the pharmacy? N/a Recommendations for follow up: Pt to follow up with PCP Accepted Focusing Machine Operator's offer to schedule appt.? Yes Follow up Appointments: Future Appointments (next 10) Provider Department Center 07/20/2023 4:20 PM (Arrive by 4:10 PM) Adore Morales MD [facility] [address] 07/22/2023 9:00 AM Vick Kincaid MD [facility] Surgery [facility] 10/04/2023 10:45 AM Perfecto Cam MD [facility] MACARONI PRESS OPERATOR Swisher Transportation: yes Patient verbalized understanding by repeating instructions correctly and agrees with Plan of Care as discussed above. Referred to Senior Ui Ux Designer: No Barriers or Concerns:No Dental Care Screening: Have you been to the dentist within the year :NA If no, can I assist with making you an appointment: DUNIA SDOH Reviewed:Yes Letter mailed:No documented in this encounter [facility] 07-16-2023 Hospital Discharge instructions Erin Littlejohn APRN-CNP [...] Everywhere.How to Keep Track of Your Headaches ([place])Headache, Adult ED ([place])documented in this encounter [facility] 07-16-2023 Telephone encounter Note Situation: Caller is [...] and treatment now. Caller will go to [facility] ED. Stressed importance of getting medical attention as advised. Information sent to Surgeon and clinical pool as update. Thank you. Dina Bradley, RN, RN [facility] 07-16-2023 Miscellaneous Notes Situation: Caller states is [...] treatment now. Caller states will go to [facility] ED. Stressed importance of getting medical attention as advised. Information sent to Surgeon and clinical pool as update. Thank you. Dina Bradley RN, RN documented in this encounter [facility] 07-14-2023 Telephone encounter Note NB ~~thank you ~~K [facility] 07-14-2023 Miscellaneous Notes NB ~~thank you ~~K [...] it hurt? Right side of head by yazidi 2. ONSET: When did the headache start? [...] your last menstrual period? Denies Protocols used: Eezbixpr-V-RN, Post-Op Symptoms and Tkxzhxdbz-D-QF documented in this encounter [facility] 07-14-2023 Telephone encounter Note I spoke to [...] this is likely not related to surgery. [facility] Work Phone: 07-14-2023 Instructions Kylah Alcala PA-C [...] or worsening symptoms. documented in this encounter [facility] 07-14-2023 History of Present illness Narrative Images [...] Current Outpatient Medications Medication Sig Dispense Refill uiqicty-ydffjhzfqshtm-ubcdsasr (Excedrin Extra Strength) 250-250-65 MG TABS tablet [...] headache type Acute cough Other orders - nhmdzug-ffvuroajqdiju-zmbxvmdq (Excedrin Extra Strength) 250-250-65 MG TABS tablet; [...] Kylah Alcala PA-C documented in this encounter [facility] 07-14-2023 Telephone encounter Note Situation: Headache post [...] it hurt? Right side of head by yazidi 2. ONSET: When did the headache start? [...] your last menstrual period? Denies Protocols used: Obrcsjii-S-JP, Post-Op Symptoms and Eybxzhhln-Y-WB [facility] 07-13-2023 Note Transitions of Care Follow Up Call Initial communication post- discharge: 1st attempt: 07/13/23 [x] Text sent Yes Sources of Information: [x]Patient, family member or ostomy care nurse: Name and Relationship to patient: [x] Hospital [...] at this time Patient provided pharmacy number [phone] for medication related concerns/follow up. Needs follow up appointment or procedure: yes Future Appointments (next 10) Provider Department Center 07/22/2023 9:00 AM Vick Kincaid MD [facility] Review need for or follow up [...] of Transportation: self Interact with other health patient care specialist involved in patient care:No Referral to Primary Care Coordination :No Referral to [facility] :No Additional information needed and requested:No Reminded to bring in all medications. (Old AND New) to future appointment. Kajal Khan, MSN,RN Care Coordination [facility] O [phone] The [facility] The [facility] 07-13-2023 Telephone encounter Note Images from the original note were not included. Transitions of Care Follow Up Call Initial communication post- discharge: 1st attempt: 07/13/23 [x] Text sent Yes Sources of Information: [x]Patient, family member or ostomy care nurse: Name and Relationship to patient: [x] Hospital [...] at this time Patient provided pharmacy number [phone] for medication related concerns/follow up. Needs follow up appointment or procedure: yes Future Appointments (next 10) Provider Department Center 07/22/2023 9:00 AM Vick Kincaid MD [facility] Surgery [facility] Review need for or follow up on pending diagnostic test, referrals to specialist and treatment plans with patient/caregiver: No Community resources identified for patient/family: No i.e. [employer] Durable medical equipment ordered:No Education provided to patient/caregiver to support self management, ADL's, etc: KEA offered Ice to help with swelling and use the Pain Meds as needed. Make sure taking Thyroid medication Mode of Transportation: self Interact with other health patient care specialist involved in patient care:No Referral to Primary Care Coordination :No [facility] Additional information needed and requested:No Reminded to bring in all medications. (Old & New) to future appointment. Kajal Khan, MSN,RN Care Coordination [facility] [phone] [facility] 07-13-2023 Miscellaneous Notes Images from the original note were not included. Transitions of Care Follow Up Call Initial communication post- discharge: 1st attempt: 07/13/23 [x] Text sent Yes Sources of Information: [x]Patient, family member or ostomy care nurse: Name and Relationship to patient: [x] Hospital [...] at this time Patient provided pharmacy number [phone] for medication related concerns/follow up. Needs follow up appointment or procedure: yes Future Appointments (next 10) Provider Department Center 07/22/2023 9:00 AM Vick Kincaid MD [facility] Review need for or follow up [...] of Transportation: self Interact with other health patient care specialist involved in patient care:No Referral to Primary Care Coordination :No Referral to [facility] :No Additional information needed and requested:No Reminded to bring in all medications. (Old & New) to future appointment. Kajal Khan, MSN,RN Care Coordination [facility] [phone] [facility] documented in this encounter [facility] 07-12-2023 Plan of care note Problem: Routine [...] adult patient will be met Outcome: Progressing [facility] 07-12-2023 Miscellaneous Notes Problem: Routine Care: Goal: [...] year old female Surgical Contact Serial Number: [id number] Preoperative Diagnosis: Pre-op Diagnosis * Multiple thyroid nodules [E04.2] Postoperative Diagnosis: * Multiple thyroid nodules [E04.2] Procedures: 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, cervical approach Surgeon(s): Surgeon(s): Vick Kincaid MD Staff: Scrub: Magaly Pollack, SILK PRINTER; Genaro Rodriguez, ZION Rugby League Footballer Nurse: Chris Doran Physician Visual Display Associate: Ninfa Prescott PA-C Snailer: Devin Ortega MD Anesthesia: General Anesthesiologist: Annia Zhao MD CAA: Soila Dunn CAA Anesthesia Student: Dory Trinidad Specimen(s): ID Type Source Tests Collected by Time Destination 1 : lymph nodes central compartment neck Tissue Lymph node SPECIMEN FOR SURGICAL PATH Vick Kincaid MD 07/11/2023 0932 2 : entire thyroid gland Tissue Thyroid SPECIMEN FOR SURGICAL PATH Vikc Kincaid MD 07/11/2023 0948 Estimated Blood Loss: [...] were discussed with the patient and/or legal off premise service representative. The risks, benefits and alternatives were reviewed. Questions regarding blood transfusions were answered. The patient /or the patient s legal off premise service representative agree with the plan for transfusion of blood and/or blood components. Name: WALTER ANDRADE MR#: [id number] [facility]#: [id number] Date of Procedure: 07/11/2023 ATTENDING SURGEON: Vick Kincaid MD TABLE INSPECTOR: Ninfa Prescott PA-C PREOPERATIVE DIAGNOSIS: Bilateral nodular [...] Earl/MedQ/Dict: 07/11/2023 21:38:52 TRANS: 07/12/2023 01:07:51 JOB: [id number] DictJob#: [id number] documented in this encounter [facility] 07-12-2023 History of Present illness Narrative SW/CM [...] and interventions. Razia Alvarado RN BSN Inpatient Senior Java Web Application Developer Tuesday/Tuesday 8:00/ 4:30 Post-op check note S: [...] Ninfa Prescott PA-C 07/11/23 [facility] Pager# [phone] documented in this encounter [facility] 07-12-2023 Note DISCHARGE SUMMARY [place] [id number] Walter Andrade Date of : 2000 23 year old female Attending Vick Kincaid,* Date of Admission 07/11/2023 Date of Discharge 07/12/2023 Final Diagnosis: Multiple thyroid nodules Hospital Problems as of 07/12/2023 * (Principal) Multiple thyroid nodules Discharge Procedure Orders THYROIDECTOMY, W/SUBSTERNAL THYROID; CERVICAL APPROACH Future Appointments Date Time Provider Department Center 07/22/2023 9:00 AM Vick Kincaid MD [facility] Condition at Discharge improved Activity no heavy [...] Ninfa Prescott PA-C 07/12/23 [facility] Surgery Pager# [phone] [facility] 07-12-2023 Hospital Discharge instructions Ninfa Prescott [...] at 9:00am. Please call the office at [phone] to make an appointment if one has not been made for you. -Follow up with your primary care provider in 1-2 weeks. If you do not have a primary care provider, call [phone] to schedule with a [facility] provider. Future Appointments (next 10) Provider Department Center 07/22/2023 9:00 AM Vick Kincaid MD [facility] If you have questions or concerns, if your condition worsens or you develop new symptoms such as weakness, numbness or tingling please call the [facility] Line at [phone]. After hours and on weekends, please call the surgery resident on-call at . Ask the relief operator for the general surgery resident product applications engineer. documented in this encounter [facility] 07-11-2023 Plan of care note Problem: Routine [...] adult patient will be met Outcome: Progressing [facility] 07-11-2023 Plan of care note Problem: Routine [...] adult patient will be met Outcome: Progressing [facility] 07-11-2023 Surgery Postoperative evaluation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 Unspecified vitamin D deficiency Vitamin B 12 deficiency Other B-complex deficiencies Acquired hypothyroidism Unspecified hypothyroidism Current moderate episode of major depressive disorder without prior episode ([facility]) [facility] Diagnosis BMI 40.0-44.9, adult ([facility])- Primary Body Mass Index 40.0-44.9, adult Supervision of high risk in first trimester ([facility]) Unspecified high-risk Severe obesity due to excess calories affecting , antepartum ([facility]) Postablative hypothyroidism Other postablative hypothyroidism Supervision of high risk in second trimester ([facility])- Primary Unspecified high-risk 20 weeks gestation of ([facility]) state, incidental BMI 40.0-44.9, adult ([facility]) Body Mass Index 40.0-44.9, adult Obesity in ([facility]) Obesity complicating , childbirth, or the puerperium, unspecified as to episode of care or not applicable Postablative hypothyroidism Other postablative hypothyroidism Rh negative state in antepartum period ([facility]) Rhesus isoimmunization affecting management of mother, antepartum condition GBS bacteriuria Pyelectasis of fetus on ultrasound ([facility]) Abnormal findings on screening Screening for diabetes mellitus- Primary Encounter for supervision of other normal in second trimester ([facility]) Hypothyroidism, unspecified type Depression during in second trimester ([facility]) documented in this encounter [facility] note* Diagnosis BMI 40.0-44.9, adult ([facility])- Primary Body Mass Index 40.0-44.9, adult Supervision of high risk in first trimester ([facility]) Unspecified high-risk Severe obesity due to excess calories affecting , antepartum ([facility]) Postablative hypothyroidism Other postablative hypothyroidism Supervision of high risk in second trimester ([facility])- Primary Unspecified high-risk 20 weeks gestation of ([facility]) state, incidental BMI 40.0-44.9, adult ([facility]) Body Mass Index 40.0-44.9, adult Obesity in ([facility]) Obesity complicating , childbirth, or the puerperium, unspecified as to episode of care or not applicable Postablative hypothyroidism Other postablative hypothyroidism Rh negative state in antepartum period ([facility]) Rhesus isoimmunization affecting management of mother, antepartum condition GBS bacteriuria Pyelectasis of fetus on ultrasound ([facility]) Abnormal findings on screening Encounter for supervision of other normal in second trimester ([facility])- Primary 26 weeks gestation of ([facility]) state, incidental documented in this encounter [facility] note* Diagnosis BMI 40.0-44.9, adult ([facility])- Primary Body Mass Index 40.0-44.9, adult Supervision of high risk in first trimester ([facility]) Unspecified high-risk Severe obesity due to excess calories affecting , antepartum ([facility]) Postablative hypothyroidism Other postablative hypothyroidism Supervision of high risk in second trimester ([facility])- Primary Unspecified high-risk 20 weeks gestation of ([facility]) state, incidental BMI 40.0-44.9, adult ([facility]) Body Mass Index 40.0-44.9, adult Obesity in ([facility]) Obesity complicating , childbirth, or the puerperium, unspecified as to episode of care or not applicable Postablative hypothyroidism Other postablative hypothyroidism Rh negative state in antepartum period ([facility]) Rhesus isoimmunization affecting management of mother, antepartum condition GBS bacteriuria Pyelectasis of fetus on ultrasound ([facility]) Abnormal findings on screening Supervision of high risk in third trimester ([facility])- Primary Unspecified high-risk 28 weeks gestation of ([facility]) state, incidental Obesity affecting in third trimester, unspecified obesity type ([facility]) Depression during in third trimester ([facility]) Hypothyroidism, unspecified type Rh negative state in antepartum period ([facility]) Rhesus isoimmunization affecting management of mother, antepartum condition Need for vaccination Need for prophylactic vaccination and inoculation against unspecified single disease documented in this encounter [facility] note* Diagnosis BMI 40.0-44.9, adult ([facility])- Primary Body Mass Index 40.0-44.9, adult Supervision of high risk in first trimester ([facility]) Unspecified high-risk Severe obesity due to excess calories affecting , antepartum ([facility]) Postablative hypothyroidism Other postablative hypothyroidism Supervision of high risk in second trimester ([facility])- Primary Unspecified high-risk 20 weeks gestation of ([facility]) state, incidental BMI 40.0-44.9, adult ([facility]) Body Mass Index 40.0-44.9, adult Obesity in ([facility]) Obesity complicating , childbirth, or the puerperium, unspecified as to episode of care or not applicable Postablative hypothyroidism Other postablative hypothyroidism Rh negative state in antepartum period ([facility]) Rhesus isoimmunization affecting management of mother, antepartum condition GBS bacteriuria Pyelectasis of fetus on ultrasound ([facility]) Abnormal findings on screening Elevated glucose- Primary Other abnormal glucose documented in this encounter [facility] note* Diagnosis BMI 40.0-44.9, adult ([facility])- Primary Body Mass Index 40.0-44.9, adult Supervision of high risk in first trimester ([facility]) Unspecified high-risk Severe obesity due to excess calories affecting , antepartum ([facility]) Postablative hypothyroidism Other postablative hypothyroidism Supervision of high risk in second trimester ([facility])- Primary Unspecified high-risk 20 weeks gestation of ([facility]) state, incidental BMI 40.0-44.9, adult ([facility]) Body Mass Index 40.0-44.9, adult Obesity in ([facility]) Obesity complicating , childbirth, or the puerperium, unspecified as to episode of care or not applicable Postablative hypothyroidism Other postablative hypothyroidism Rh negative state in antepartum period ([facility]) Rhesus isoimmunization affecting management of mother, antepartum condition GBS bacteriuria Pyelectasis of fetus on ultrasound ([facility]) Abnormal findings on screening Supervision of high risk in third trimester ([facility])- Primary Unspecified high-risk 30 weeks gestation of ([facility]) state, incidental Obesity affecting in third trimester, unspecified obesity type ([facility]) Hypothyroidism, unspecified type Depression during in third trimester ([facility]) Postablative hypothyroidism Other postablative hypothyroidism GBS bacteriuria Pyelectasis of fetus on ultrasound ([facility]) Abnormal findings on screening documented in this encounter [facility] note* Diagnosis BMI 40.0-44.9, adult ([facility])- Primary Body Mass Index 40.0-44.9, adult Supervision of high risk in first trimester ([facility]) Unspecified high-risk Severe obesity due to excess calories affecting , antepartum ([facility]) Postablative hypothyroidism Other postablative hypothyroidism Supervision of high risk in second trimester ([facility])- Primary Unspecified high-risk 20 weeks gestation of ([facility]) state, incidental BMI 40.0-44.9, adult ([facility]) Body Mass Index 40.0-44.9, adult Obesity in ([facility]) Obesity complicating , childbirth, or the puerperium, unspecified as to episode of care or not applicable Postablative hypothyroidism Other postablative hypothyroidism Rh negative state in antepartum period ([facility]) Rhesus isoimmunization affecting management of mother, antepartum condition GBS bacteriuria Pyelectasis of fetus on ultrasound ([facility]) Abnormal findings on screening Supervision of high risk in third trimester ([facility])- Primary Unspecified high-risk 31 weeks gestation of ([facility]) state, incidental Obesity affecting in third trimester, unspecified obesity type ([facility]) [facility]* Diagnosis BMI 40.0-44.9, adult ([facility])- Primary Body Mass Index 40.0-44.9, adult Supervision of high risk in first trimester ([facility]) Unspecified high-risk Severe obesity due to excess calories affecting , antepartum ([facility]) Postablative hypothyroidism Other postablative hypothyroidism Supervision of high risk in second trimester ([facility])- Primary Unspecified high-risk 20 weeks gestation of ([facility]) state, incidental BMI 40.0-44.9, adult ([facility]) Body Mass Index 40.0-44.9, adult Obesity in ([facility]) Obesity complicating , childbirth, or the puerperium, unspecified as to episode of care or not applicable Postablative hypothyroidism Other postablative hypothyroidism Rh negative state in antepartum period ([facility]) Rhesus isoimmunization affecting management of mother, antepartum condition GBS bacteriuria Pyelectasis of fetus on ultrasound ([facility]) Abnormal findings on screening Pyelectasis of fetus on ultrasound ([facility])- Primary Abnormal findings on screening Supervision of high risk in second trimester ([facility]) Unspecified high-risk 20 weeks gestation of ([facility]) state, incidental BMI 40.0-44.9, adult ([facility]) Body Mass Index 40.0-44.9, adult Obesity in ([facility]) Obesity complicating , childbirth, or the puerperium, unspecified as to episode of care or not applicable documented [facility] encounter [facility]* Diagnosis BMI 40.0-44.9, adult ([facility])- Primary Body Mass Index 40.0-44.9, adult Supervision of high risk in first trimester ([facility]) Unspecified high-risk Severe obesity due to excess calories affecting , antepartum ([facility]) Postablative hypothyroidism Other postablative hypothyroidism Supervision of high risk in second trimester ([facility])- Primary Unspecified high-risk 20 weeks gestation of ([facility]) state, incidental BMI 40.0-44.9, adult ([facility]) Body Mass Index 40.0-44.9, adult Obesity in ([facility]) Obesity complicating , childbirth, or the puerperium, unspecified as to episode of care or not applicable Postablative hypothyroidism Other postablative hypothyroidism Rh negative state in antepartum period ([facility]) Rhesus isoimmunization affecting management of mother, antepartum condition GBS bacteriuria Pyelectasis of fetus on ultrasound ([facility]) Abnormal findings on screening Supervision of high risk in third trimester ([facility])- Primary Unspecified high-risk 32 weeks gestation of ([facility]) state, incidental Obesity affecting in third trimester, unspecified obesity type ([facility]) Supervision of high risk in first trimester ([facility]) Unspecified high-risk [facility] BMI 40.0-44.9, adult ([facility])- Primary Body Mass Index 40.0-44.9, adult Supervision of high risk in first trimester ([facility]) Unspecified high-risk Severe obesity due to excess calories affecting , antepartum ([facility]) Postablative hypothyroidism Other postablative hypothyroidism Supervision of high risk in second trimester ([facility])- Primary Unspecified high-risk 20 weeks gestation of ([facility]) state, incidental BMI 40.0-44.9, adult ([facility]) Body Mass Index 40.0-44.9, adult Obesity in ([facility]) Obesity complicating , childbirth, or the puerperium, unspecified as to episode of care or not applicable Postablative hypothyroidism Other postablative hypothyroidism Rh negative state in antepartum period ([facility]) Rhesus isoimmunization affecting management of mother, antepartum condition GBS bacteriuria Pyelectasis of fetus on ultrasound ([facility]) Abnormal findings on screening Supervision of high risk in third trimester ([facility])- Primary Unspecified high-risk Obesity affecting in third trimester, unspecified obesity type ([facility]) Hypothyroidism, unspecified type Depression during in third trimester ([facility]) 33 weeks gestation of ([facility]) state, incidental Anemia during in third trimester ([facility]) documented in this encounter [facility] note* Diagnosis BMI 40.0-44.9, adult ([facility])- Primary Body Mass Index 40.0-44.9, adult Supervision of high risk in first trimester ([facility]) Unspecified high-risk Severe obesity due to excess calories affecting , antepartum ([facility]) Postablative hypothyroidism Other postablative hypothyroidism Supervision of high risk in second trimester ([facility])- Primary Unspecified high-risk 20 weeks gestation of ([facility]) state, incidental BMI 40.0-44.9, adult ([facility]) Body Mass Index 40.0-44.9, adult Obesity in ([facility]) Obesity complicating , childbirth, or the puerperium, unspecified as to episode of care or not applicable Postablative hypothyroidism Other postablative hypothyroidism Rh negative state in antepartum period ([facility]) Rhesus isoimmunization affecting management of mother, antepartum condition GBS bacteriuria Pyelectasis of fetus on ultrasound ([facility]) Abnormal findings on screening Supervision of high risk in third trimester ([facility])- Primary Unspecified high-risk Obesity affecting in third trimester, unspecified obesity type ([facility]) Hypothyroidism, unspecified type Depression during in third trimester ([facility]) 34 weeks gestation of ([facility]) state, incidental Pyelectasis of fetus on ultrasound ([facility]) Abnormal findings on screening Anemia during in third trimester ([facility]) documented in this encounter [facility] note* Diagnosis BMI 40.0-44.9, adult ([facility])- Primary Body Mass Index 40.0-44.9, adult Supervision of high risk in first trimester ([facility]) Unspecified high-risk Severe obesity due to excess calories affecting , antepartum ([facility]) Postablative hypothyroidism Other postablative hypothyroidism Supervision of high risk in second trimester ([facility])- Primary Unspecified high-risk 20 weeks gestation of ([facility]) state, incidental BMI 40.0-44.9, adult ([facility]) Body Mass Index 40.0-44.9, adult Obesity in ([facility]) Obesity complicating , childbirth, or the puerperium, unspecified as to episode of care or not applicable Postablative hypothyroidism Other postablative hypothyroidism Rh negative state in antepartum period ([facility]) Rhesus isoimmunization affecting management of mother, antepartum condition GBS bacteriuria Pyelectasis of fetus on ultrasound ([facility]) Abnormal findings on screening 35 weeks gestation of ([facility])- Primary state, incidental Supervision of high risk in third trimester ([facility]) Unspecified high-risk Obesity affecting in third trimester, unspecified obesity type ([facility]) documented in this encounter [facility] note* Diagnosis BMI 40.0-44.9, adult ([facility])- Primary Body Mass Index 40.0-44.9, adult Supervision of high risk in first trimester ([facility]) Unspecified high-risk Severe obesity due to excess calories affecting , antepartum ([facility]) Postablative hypothyroidism Other postablative hypothyroidism Supervision of high risk in second trimester ([facility])- Primary Unspecified high-risk 20 weeks gestation of ([facility]) state, incidental BMI 40.0-44.9, adult ([facility]) Body Mass Index 40.0-44.9, adult Obesity in ([facility]) Obesity complicating , childbirth, or the puerperium, unspecified as to episode of care or not applicable Postablative hypothyroidism Other postablative hypothyroidism Rh negative state in antepartum period ([facility]) Rhesus isoimmunization affecting management of mother, antepartum condition GBS bacteriuria Pyelectasis of fetus on ultrasound ([facility]) Abnormal findings on screening Obesity in ([facility])- Primary Obesity complicating , childbirth, or the puerperium, unspecified as to episode of care or not applicable Supervision of high risk in third trimester ([facility]) Unspecified high-risk Obesity affecting in third trimester, unspecified obesity type ([facility]) documented in this encounter [facility] note* Diagnosis BMI 40.0-44.9, adult ([facility])- Primary Body Mass Index 40.0-44.9, adult Supervision of high risk in first trimester ([facility]) Unspecified high-risk Severe obesity due to excess calories affecting , antepartum ([facility]) Postablative hypothyroidism Other postablative hypothyroidism Supervision of high risk in second trimester ([facility])- Primary Unspecified high-risk 20 weeks gestation of ([facility]) state, incidental BMI 40.0-44.9, adult ([facility]) Body Mass Index 40.0-44.9, adult Obesity in ([facility]) Obesity complicating , childbirth, or the puerperium, unspecified as to episode of care or not applicable Postablative hypothyroidism Other postablative hypothyroidism Rh negative state in antepartum period ([facility]) Rhesus isoimmunization affecting management of mother, antepartum condition GBS bacteriuria Pyelectasis of fetus on ultrasound ([facility]) Abnormal findings on screening Obesity affecting in third trimester, unspecified obesity type ([facility])- Primary 36 weeks gestation of ([facility]) state, incidental Supervision of high risk in third trimester ([facility]) Unspecified high-risk [facility] Diagnosis BMI 40.0-44.9, adult ([facility])- Primary Body Mass Index 40.0-44.9, adult Supervision of high risk in first trimester ([facility]) Unspecified high-risk Severe obesity due to excess calories affecting , antepartum ([facility]) Postablative hypothyroidism Other postablative hypothyroidism Supervision of high risk in second trimester ([facility])- Primary Unspecified high-risk 20 weeks gestation of ([facility]) state, incidental BMI 40.0-44.9, adult ([facility]) Body Mass Index 40.0-44.9, adult Obesity in ([facility]) Obesity complicating , childbirth, or the puerperium, unspecified as to episode of care or not applicable Postablative hypothyroidism Other postablative hypothyroidism Rh negative state in antepartum period ([facility]) Rhesus isoimmunization affecting management of mother, antepartum condition GBS bacteriuria Pyelectasis of fetus on ultrasound ([facility]) Abnormal findings on screening Supervision of high risk in third trimester ([facility])- Primary Unspecified high-risk 37 weeks gestation of ([facility]) state, incidental Obesity affecting in third trimester, unspecified obesity type ([facility]) Postablative hypothyroidism Other postablative hypothyroidism GBS bacteriuria Depression during in third trimester ([facility]) [facility] Attachments The following attachments cannot be sent through Care Everywhere. * Viral Pharyngitis ([place]izen [place]) documented in this encounter[facility]HealthReason for visit Narrative* Diagnostic Procedure Only (Routine) - Closed Specialty Diagnoses / Procedures Referred By Contdanis t [facility] Diagnoses BMI 40.0-44.9, adult ([facility]) Supervision of high risk in first trimester ([facility]) Severe obesity due to excess calories affecting , antepartum ([facility]) Procedures OBSTETRIC ULTRASOUND WHI US PREG UTERUS AFTER 1ST TRIMEST GESTATION Cleo Portillo MD [address] [place] [address] Phone: tel: fax: [facility] [address] [place] [address] Referral ID Status Reason Start Date Expiration Date V isits Requested Visits Authorized [id number] Closed Auto-Generate d Referral 05/22/2024 05/22/[address] 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 Specialty Diagnoses / Procedures Referred By Luis Enrique bender Referred To Contact Psychiatry Diagnoses Attention deficit hyperactivity disorder (ADHD), unspecified ADHD type Behavior concern Adore Morales MD [address] [place] [address] [place] [address] [facility] PSY ADULT GENERAL [address] [place] [address] Referral ID Status Reason Start Date Expiration Date V isits Requested Visits Authorized [id number] Authorized 06/23/2022 06/24/2023 3 3 Scheduling Instructions You have been referred to Outpatient Behavioral Health. In order to begin services, you will need to attend an intake assessment with a herd tester. (No medications will be provided at this appointment. Linkage to treatment is made after completion of the initial assessment.) To schedule an intake, please contact our office at and we will schedule you an appointment with a herd tester. All scheduled intake appointments run between 8AM-4:00PM Tuesday through Tuesday. Intakes are available in person or via telehealth. For quicker access, please consider using our online scheduling tool at [email or web address]. New appointment times are released daily. [facility] Outpatient Behavioral Health is located on the 8th floor of the [facility] elevators to the 8th floor. [employer] [facility], in partnership with [facility], is a provider of prevention education, treatment, and recovery services for individuals impacted by mental health and/or addiction issues. [facility] provides addiction and mental health assessments at two convenient locations in [facility]. o [address] [facility] (walk-in available) o [address] [facility] (by appointment only) Walk-in assessments operate from 8am-2pm and are first come, first serve. Assessment appointments can also be made by calling [phone] or utilizing our online scheduling tool at [email or web address]. We look forward to assisting you. Thank you for choosing [facility]. Question Answer Behavioral Health Service Options Counseling Comments Please utilize the [id number], Addiction Referral Outpatient if requesting that this patient be evaluated for Substance Use Disorder (BHAVYA) reasons. Specialty Diagnoses / Procedures Referred By Contac t Referred To Contact Radiology Diagnoses DUB (dysfunctional uterine bleeding) PCOS (polycystic ovarian syndrome) Procedures US FEMALE PELVIS+BLADDER Adore Morales MD [address] [place] [address] [place] [address] [address] [address] [place] [address] Referral ID Status Reason Start Date Expiration Date V isits Requested Visits Authorized [id number] Authorized 06/23/2022 06/23/2023 1 1 Specialty Diagnoses / Procedures Referred By Contac t Referred To Contact Radiology Diagnoses Thyromegaly Procedures US THYROID Adore Morales MD [address] [place] [address] [place] [address] [facility] ULTRASOUND [address] [place] [address] Referral ID Status Reason Start Date Expiration Date Visits Re quested Visits Authorized [id number] Closed 08/06/2022 08/06/2023 1 1 Specialty Diagnoses / Procedures Referred By Contac t Referred To Contact General Surgery Diagnoses Multiple thyroid nodules Adore Morales MD [address] [place] [address] [place] [address] Vick Kincaid MD [address] [place] [phone] Referral ID Status Reason Start Date Expiration Date V isits Requested Visits Authorized [id number] Authorized 10/10/2022 04/08/2023 3 3 Scheduling Instructions Please call the Surgery Clinic at to schedule an appointment if one was not made for you today. Question Answer Reason for evaluation: Thyroid/Neck Mass Specialty Diagnoses / Procedures Referred By Luis Enrique t Referred To Contact Nutrition Diagnoses Obesity, unspecified classification, unspecified obesity type, unspecified whether serious comorbidity present Adore Morales MD [address] [place] [id number] [facility] NUTRITION [address] [place] [address] Referral ID Status Reason Start Date Expiration Date Visits Requested Visits Authorized [id number] Authorized [facility] 11/11/2022 11/06/2023 3 3 Scheduling Instructions Please call the Nutrition Clinic at to schedule an appointment if one was not made for you today. Question Answer Please specify primary reason for consult. Other - 'disordered eating' /weight Comments No prior visits in Nutrition Additional Source Comments INFORMATION SOURCE (unrecogn ized section and content) DATE CREATED AUTHOR 09/05/[address] [facility] DATE CREATED AUTHOR AUTHOR'S ORGANIZ ATION 09/06/2017 [facility] DATE CREATED AUTHOR AUTHOR'S ORGANIZ ATION 09/15/2017 [facility] DATE CREATED AUTHOR AUTHOR'S ORGANIZ ATION 05/15/2020 [facility] DATE CREATED AUTHOR AUTHOR'S ORGANIZ ATION 06/19/2020 [facility] DATE CREATED AUTHOR AUTHOR'S ORGANIZ ATION 10/01/2022 [facility] DATE CREATED AUTHOR AUTHOR'S ORGANIZ ATION 01/15/2024 [facility] DATE CREATED AUTHOR AUTHOR'S ORGANIZ ATION 06/16/2024 [facility] DATE CREATED AUTHOR AUTHOR'S ORGANIZ ATION 07/06/2024 [facility] DATE CREATED AUTHOR AUTHOR'S ORGANIZ ATION 11/10/2024 [facility] DATE CREATED AUTHOR AUTHOR'S ORGANIZ ATION 11/16/2024 [facility] Reason for Visit (unrecogniz ed section [...] Referred By Contac t Referred To Contact [facility] Diagnoses NEW OB LMP ?? seen 04/17/24 at [facility] est to be 9 wks Procedures NEw ob est ob 1st visit Self [id number] [place] [address] Referral ID Status Reason Start Date Expiration Date V isits Requested Visits Authorized [id number] Closed Patient Cleared - Qualified 100% FAS 04/19/2024 06/18/2024 99 99 Reason Comments US Specialty Diagnoses / Procedures Referred By Contac t Referred To Contact [facility] Diagnoses 9 weeks gestation of Procedures OBSTETRIC ULTRASOUND WHI US PREG UTERUS AFTER 1ST TRIMEST GESTATION Dina Sanchez, YOHANA.ALMOND PASTE MIXER [address] [place] [address] Phone: tel: fax: [facility] [address] [place] [address] Referral ID Status Reason Start Date Expiration Date V isits Requested Visits Authorized [id number] Closed Auto-Generate d Referral 04/24/2024 04/24/2025 1 1 Reason Comments Orders Reason Comments Initial OB Visit Specialty Diagnoses / Procedures Referred By Contac t Referred To Contact [facility] Diagnoses NEW OB LMP ?? seen 04/17/24 at [facility] center est to be 9 wks Procedures NEw ob est ob 1st visit Self [facility] [address] [place] [address] Referral ID Status Reason Start Date Expiration Date Visits Requested Visits Authorized [id number] Authorized Patient Cleared - Qualified 100% FAS [...] surgery (thyroidectomy). Pt recv'd Excedrin but no detention relief. -vision changes, +photosensitive, -n/v/d, -fever, cills Reason Comments Headache Reason Onset Date Comments Headache 07/14/2023 Reason Comments Care Coordination Hospital follow-up Reason Comments Cough Pt states lungs nilson t, tonsils swollen, lots of coughing Reason Comments Consult with specialist Specialty Diagnoses / Procedures Referred By Contac t Referred To Contact General Surgery Diagnoses Multiple thyroid nodules Adore Morales MD [address] [place] [address] [place] [address] Vick [place] [address] Referral ID Status Reason Start Date Expiration Date V isits Requested Visits Authorized [id number] Authorized 10/10/2022 04/08/2023 3 3 Reason Comments Discuss results test/procedures Specialty Diagnoses / Procedures Referred By Contac t Referred To Contact Radiology Diagnoses DUB (dysfunctional uterine bleeding) PCOS (polycystic ovarian syndrome) Procedures US PELVIS/TRANSVAG (NICOLE) US FEMALE PELVIS+BLADDER Adore Morales MD [address] [place] [address] [place] [address] [facility] [address] [place] [address] Referral ID Status Reason Start Date Expiration Date Visits Re quested Visits Authorized [id number] Closed 06/23/2022 06/23/2023 1 1 Reason Onset Date Comments Discuss results test/procedures 06/24/2022 REFERENCE 99 <item> Privacy Markings (unrecogniz ed section and content) Section Author: Vanessa Dubois PROHIBITION ON REDISCLOSURE OF CONFIDENTIAL INFORMATION This notice accompanies a disclosure of information concerning a client made to you with the consent of such client. Care Teams (unrecognized sec tion and content) Roofing Foreman Relationship Specialty Start Date End Date Adore Morales MD [address] [place] [address] [place] [address] PCP - General Family Medicine 11/05/22 Roofing Foreman Relationship Specialty Start Date End Date Adore Morales MD [address] [place] [address] [place] [address] PCP - General Family Medicine 11/05/22 Roofing Foreman Relationship Specialty Start Date End Date Adore Morales MD [address] [place] [address] [place] [address] PCP - General Family Medicine 11/05/22 Roofing Foreman Relationship Specialty Start Date End Date Adore Morales MD [address] [place] [address] [place] [address] PCP - General Family Medicine 11/05/22 Vick Kincaid MD [address] [place] [address] Physician General Surgery 02/12/23 Roofing Foreman Relationship Specialty Start Date End Date Adore Morales MD [address] [place] [address] [address] [place] [id number] PCP - General Family Medicine 11/05/22 Vick Kincaid MD [address] [place] [address] Physician General Surgery 02/12/23 Roofing Foreman Relationship Specialty Start Date End Date Adore Morales MD [address] [place] [address] [address] [place] [address] PCP - General Family Medicine 11/05/22 Vick Kincaid MD [address] [place] [address] Physician General Surgery 02/12/23 Roofing Foreman Relationship Specialty Start Date End Date Adore Morales MD [address] [place] [address] [place] PCP - General Family Medicine 11/05/22 Vick Kincaid MD [address] [place], [place] Physician General Surgery 02/12/23 Roofing Foreman Relationship Specialty Start Date End Date Adore Morales MD [address] [place] [address] [place] [address] PCP - General Family Medicine 11/05/22 Vick Kincaid MD [address] [place] [address] Physician General Surgery 02/12/23 Roofing Foreman Relationship Specialty Start Date End Date Adore Morales MD [address] [place] [address] [place] PCP - General Family Medicine 11/05/22 Vick Kincaid MD [address] [place] [address] Physician General Surgery 02/12/23 Roofing Foreman Relationship Specialty Start Date End Date Adore Morales MD [address] [place] [address] [place] PCP - General Family Medicine 11/05/22 Vick Kincaid MD [address] [place] [address] Physician General Surgery 02/12/23 Kajal Khan RN [address] [place] [address] Diet Supervisor Care Management 07/13/23 08/10/23 Roofing Foreman Relationship Specialty Start Date End Date Adore Morales MD [address] [place] [address] [place] PCP - General Family Medicine 11/05/22 Vick Kincaid MD [address] [place] [address] Physician General Surgery 02/12/23 Kajal Khan, ALEXEY [address] [facility] [place] [address] Diet Supervisor Care Management 07/13/23 08/10/23 Roofing Foreman Relationship Specialty Start Date End Date Adore Morales MD [address] [place] [address] [place] [address] PCP - General Family Medicine 11/05/22 Vick Kincaid MD [address] [place] [address] Physician General Surgery 02/12/23 Kajal Khan, RN [address] [place] [id number] Diet Supervisor Care Management 07/13/23 08/10/23 Roofing Foreman Relationship Specialty Start Date End Date Adore Morales MD [address] [place] [address] [address] [place] [address] PCP - General Family Medicine 11/05/22 Vick Kincaid MD [address] [place] [address] Physician General Surgery 02/12/23 Kajal Khan, RN [address] [place] [address] Diet Supervisor Care Management 07/13/23 08/10/23 Roofing Foreman Relationship Specialty Start Date End Date Adore Morales MD [address] [place] [address] [place] [address] PCP - General Family Medicine 11/05/22 Vick Kincaid MD [address] [place] [address] Physician General Surgery 02/12/23 Kajal Khan, RN [address] [place] [address] Diet Supervisor Care Management 07/13/23 08/10/23 Roofing Foreman Relationship Specialty Start Date End Date Adore Morales MD [address] [place] [address] [place] [address] PCP - General Family Medicine 11/05/22 Vick Kincaid MD [address] [place] [address] Physician General Surgery 02/12/23 Kajal Khan, RN [address] [place] [address] Diet Supervisor Care Management 07/13/23 08/10/23 Roofing Foreman Relationship Specialty Start Date End Date Adore Morales MD [address] [place] [address] [address] [place] [id number] PCP - General Family Medicine 11/05/22 Vick Kincaid MD [address] [place] [address] Physician General Surgery 02/12/23 Kajal Khan, RN [address] [place] [address] Diet Supervisor Care Management 07/13/23 08/10/23 Roofing Foreman Relationship Specialty Start Date End Date Adore Morales MD [address] [place] [address] [address] [place] [address] PCP - General Family Medicine 11/05/22 Vcik Kincaid MD [address] [place] [address] Physician General Surgery 02/12/23 Kajal Khan, RN [address] [place] [address] Diet Supervisor Care Management 07/13/23 08/10/23 Roofing Foreman Relationship Specialty Start Date End Date Adore Morales MD [address] [place] [address] PCP - General Family Medicine 11/05/22 Vick Kincaid MD [address] [place] [address] Physician General Surgery 02/12/23 Roofing Foreman Relationship Specialty Start Date End Date Myrtle Cobb DO [address] [place], [place] [address] PCP - General Internal Medicine 06/16/20 Roofing Foreman Relationship Specialty Start Date End Date Myrtle Cobb DO [address] [place] [address] PCP - General Internal Medicine 06/16/20 Roofing Foreman Relationship Specialty Start Date End Date Myrtle Cobb DO [address] [place] [address] PCP - General Internal Medicine 06/16/20 Roofing Foreman Relationship Specialty Start Date End Date Myrtle Cobb DO [address] [place] [address] PCP - General Internal Medicine 06/16/20 Roofing Foreman Relationship Specialty Start Date End Date Myrtle Cobb DO [address] [place] [address] PCP - General Internal Medicine 06/16/20 Roofing Foreman Relationship Specialty Start Date End Date Myrtle Cobb DO [address] [place], [place] [address] PCP - General Internal Medicine 06/16/20 Roofing Foreman Relationship Specialty Start Date End Date Myrtle Cobb DO [facility] [place] [address] PCP - General Internal Medicine 06/16/20 Roofing Foreman Relationship Specialty Start Date End Date Adore Morales MD [address] [place] [address] [place] [address] PCP - General Family Medicine 06/12/24 Roofing Foreman Relationship Specialty Start Date End Date Myrtle Cobb [facility] [address] PCP - General Internal Medicine 06/16/20 06/11/24 Adore Morales MD [address] [place] [address] [place] [address] PCP - General Family Medicine 06/12/24 Roofing Foreman Relationship Specialty Start Date End Date Adore Morales MD [address] [place] [address] [place] [address] PCP - General Family Medicine 11/05/22 Vick Kincaid MD [address] [place] [phone] Physician General Surgery 02/12/23 Roofing Foreman Relationship Specialty Start Date End Date Myrtle Cobb [facility] [address] PCP - General Internal Medicine 06/16/20 06/11/24 Roofing Foreman Relationship Specialty Start Date End Date Adore Morales MD [address] [place] [address] [place] [address] PCP - General Family Medicine 11/05/22 Vick Kincaid MD [address] [place] [phone] Physician General Surgery 02/12/23 Roofing Foreman Relationship Specialty Start Date End Date Myrtle Cbob DO [address] [place] [address] PCP - General Internal Medicine 06/16/20 06/11/24 Adore Morales MD [address] [place] [address] [place] [address] PCP - General Family Medicine 06/12/24 Roofing Foreman Relationship Specialty Start Date End Date Adore Morales MD [address] [place] [address] [place] [address] PCP - General Family Medicine 06/12/24 Roofing Foreman Relationship Specialty Start Date End Date Adore Morales MD [address] [place] [address] [place] [address] PCP - General Family Medicine 06/12/24 Roofing Foreman Relationship Specialty Start Date End Date Adore Morales MD [address] [place] [address] [place] [address] PCP - General Family Medicine 06/12/24 Roofing Foreman Relationship Specialty Start Date End Date Adore Morales MD [address] [place] [address] [place] [address] PCP - General Family Medicine 11/05/22 Vick Kincaid MD [address] [place] [phone] Physician General Surgery 02/12/23 Roofing Foreman Relationship Specialty Start Date End Date Adore Morales MD [address] [place] [address] [place] [address] PCP - General Family Medicine 06/12/24 Roofing Foreman Relationship Specialty Start Date End Date Adore Morales MD [address] [place] [address] [place] [address] PCP - General Family Medicine 06/12/24 Roofing Foreman Relationship Specialty Start Date End Date Adore Morales MD [address] [place] [address] [place] [address] PCP - General Family Medicine 06/12/24 Roofing Foreman Relationship Specialty Start Date End Date Adore Morales MD [address] [place] [address] [place] [address] PCP - General Family Medicine 06/12/24 Roofing Foreman Relationship Specialty Start Date End Date Adore Morales MD [address] [place] [address] [place] [address] PCP - General Family Medicine 06/12/24 Roofing Foreman Relationship Specialty Start Date End Date Adore Morales MD [address] [place] [address] [place] [address] PCP - General Family Medicine 06/12/24 Roofing Foreman Relationship Specialty Start Date End Date Adore Morales MD [address] [place] [address] [place] [address] PCP - General Family Medicine 11/05/22 Vick Kincaid MD [address] [place] [address] Physician General Surgery 02/12/23 Roofing Foreman Relationship Specialty Start Date End Date Adore Morales MD [address] [place] [address] [place] [address] PCP - General Family Medicine 06/12/24 Roofing Foreman Relationship Specialty Start Date End Date Adore Morales MD [address] [place] [address] [place] [address] PCP - General Family Medicine 06/12/24 Roofing Foreman Relationship Specialty Start Date End Date Adore Morales MD [address] [place] [address] [place] [address] PCP - General Family Medicine 06/12/24 Roofing Foreman Relationship Specialty Start Date End Date Adore Morales MD [address] [place] [address] PCP - General Family Medicine 06/12/24 Scheduled [...] or prosecute any alcohol or drug abuse patient.[facility] the event this information is protected by the Federal Confidentiality of Alcohol and Drug Abuse Patient Records regulations: The Federal rules restrict any use of the information to criminally investigate or prosecute any alcohol or drug abuse patient.[facility] Hospital[facility] the event this information is protected by the Federal Confidentiality of Alcohol and Drug Abuse Patient Records regulations: The Federal rules restrict any use of the information to criminally investigate or prosecute any alcohol or drug abuse patient.[facility] Hospital[facility] the event this information is protected by the Federal Confidentiality of Alcohol and Drug Abuse Patient Records regulations: The Federal rules restrict any use of the information to criminally investigate or prosecute any alcohol or drug abuse patient.[facility] Hospital[facility] the event this information is protected by the Federal Confidentiality of Alcohol and Drug Abuse Patient Records regulations: The Federal rules restrict any use of the information to criminally investigate or prosecute any alcohol or drug abuse patient.[facility] Hospital[facility] the event this information is protected by the Federal Confidentiality of Alcohol and Drug Abuse Patient Records regulations: The Federal rules restrict any use of the information to criminally investigate or prosecute any alcohol or drug abuse patient.[facility] Hospital[facility] the event this information is protected by the Federal Confidentiality of Alcohol and Drug Abuse Patient Records regulations: The Federal rules restrict any use of the information to criminally investigate or prosecute any alcohol or drug abuse patient.[facility] Hospital[facility] the event this information is protected by the Federal Confidentiality of Alcohol and Drug Abuse Patient Records regulations: The Federal rules restrict any use of the information to criminally investigate or prosecute any alcohol or drug abuse patient.[facility] Hospital[facility] the event this information is protected by the Federal Confidentiality of Alcohol and Drug Abuse Patient Records regulations: The Federal rules restrict any use of the information to criminally investigate or prosecute any alcohol or drug abuse patient.[facility] HospitalIn the event this information is protected by the Federal Confidentiality of Alcohol and Drug Abuse Patient Records regulations: The Federal rules restrict any use of the information to criminally investigate or prosecute any alcohol or drug abuse patient.[facility] Hospital[facility] the event this information is protected by the Federal Confidentiality of Alcohol and Drug Abuse Patient Records regulations: The Federal rules restrict any use of the information to criminally investigate or prosecute any alcohol or drug abuse patient.[facility] Hospital[facility] the event this information is protected by the Federal Confidentiality of Alcohol and Drug Abuse Patient Records regulations: The Federal rules restrict any use of the information to criminally investigate or prosecute any alcohol or drug abuse patient.[facility] HospitalIn the event this information is protected by the Federal Confidentiality of Alcohol and Drug Abuse Patient Records regulations: The Federal rules restrict any use of the information to criminally investigate or prosecute any alcohol or drug abuse patient.[facility] HospitalIn the event this information is protected by the Federal Confidentiality of Alcohol and Drug Abuse Patient Records regulations: The Federal rules restrict any use of the information to criminally investigate or prosecute any alcohol or drug abuse patient.[facility] HospitalIn the event this information is protected by the Federal Confidentiality of Alcohol and Drug Abuse Patient Records regulations: The Federal rules restrict any use of the information to criminally investigate or prosecute any alcohol or drug abuse patient.[facility] HospitalIn the event this information is protected by the Federal Confidentiality of Alcohol and Drug Abuse Patient Records regulations: The Federal rules restrict any use of the information to criminally investigate or prosecute any alcohol or drug abuse patient.[facility] HospitalIn the event this information is protected by the Federal Confidentiality of Alcohol and Drug Abuse Patient Records regulations: The Federal rules restrict any use of the information to criminally investigate or prosecute any alcohol or drug abuse patient.[facility] HospitalIn the event this information is protected by the Federal Confidentiality of Alcohol and Drug Abuse Patient Records regulations: The Federal rules restrict any use of the information to criminally investigate or prosecute any alcohol or drug abuse patient.[facility] HospitalIn the event this information is protected by the Federal Confidentiality of Alcohol and Drug Abuse Patient Records regulations: The Federal rules restrict any use of the information to criminally investigate or prosecute any alcohol or drug abuse patient.[facility] HospitalIn the event this information is protected by the Federal Confidentiality of Alcohol and Drug Abuse Patient Records regulations: The Federal rules restrict any use of the information to criminally investigate or prosecute any alcohol or drug abuse patient.[facility] HospitalIn the event this information is protected by the Federal Confidentiality of Alcohol and Drug Abuse Patient Records regulations: The Federal rules restrict any use of the information to criminally investigate or prosecute any alcohol or drug abuse patient.[facility] HospitalIn the event this information is protected by the Federal Confidentiality of Alcohol and Drug Abuse Patient Records regulations: The Federal rules restrict any use of the information to criminally investigate or prosecute any alcohol or drug abuse patient.[facility] HospitalIn the event this information is protected by the Federal Confidentiality of Alcohol and Drug Abuse Patient Records regulations: The Federal rules restrict any use of the information to criminally investigate or prosecute any alcohol or drug abuse patient.[facility] HospitalIn the event this information is protected by the Federal Confidentiality of Alcohol and Drug Abuse Patient Records regulations: The Federal rules restrict any use of the information to criminally investigate or prosecute any alcohol or drug abuse patient.[facility] HospitalIn the event this information is protected by the Federal Confidentiality of Alcohol and Drug Abuse Patient Records regulations: The Federal rules restrict any use of the information to criminally investigate or prosecute any alcohol or drug abuse patient.[facility] HospitalIn the event this information is protected by the Federal Confidentiality of Alcohol and Drug Abuse Patient Records regulations: The Federal rules restrict any use of the information to criminally investigate or prosecute any alcohol or drug abuse patient.[facility] HospitalIn the event this information is protected by the Federal Confidentiality of Alcohol and Drug Abuse Patient Records regulations: The Federal rules restrict any use of the information to criminally investigate or prosecute any alcohol or drug abuse patient.[facility] HospitalIn the event this information is protected by the Federal Confidentiality of Alcohol and Drug Abuse Patient Records regulations: The Federal rules restrict any use of the information to criminally investigate or prosecute any alcohol or drug abuse patient.[facility] FOR RECORDS PERTAINING TO PATIENTS WHO [...] BE BASED ON THE PRIMARY CLINICAL RECORDS. [facility] [employer] [facility]. provides no warranty or guarantee of the accuracy or completeness of information in this document.
[2024-11-16 23:33] LABS: Syphilis Antibodies Nonreactive (Nonreactive)
[2024-11-17] VITALS (50 sets, daily range): BP systolic 107–137; BP diastolic 55–89; PULSE 74–110; RESP 15–20; TEMP 36.1–37.3; O2SAT 93–100; BMI 20250906.0; BMI 846.0
[2024-11-17 01:05] LABS: Barbiturate Urine NEGATIVE (< 200 ng/mL); Benzodiazepine Urine NEGATIVE (< 200 ng/mL); PCP Urine NEGATIVE (< 25 ng/mL); THC Urine NEGATIVE (< 50 ng/mL)
[2024-11-17] MEDS: LACTATED RINGERS 500 ML 999 ML IV (04:58)
--- NOTE | 2024-11-17 05:06 | HP.PCM.OB_ITS ---
HPI - General General Date of Admission: 11/16/24 HPI Narrative WALTER VEE, is a 24 F who presents for induction. Maternal Data Information GASPER Calculator Estimated Delivery Date Method Current WG Current Estimate 11/21/24 Manual 39w 3d [facility] Medical History PCOS (polycystic ovarian syndrome) Anxiety Thyroid disorder Depression Home Medications ?Medication ?Instructions ?Recorded ?Last Taken ?Type ascorbic acid (vitamin C) 500 mg 500 mg PO QODAY pregn brittanie 11/16/24 11/16/24 08:00 History tablet (Vitamin C) 500 mg aspirin 81 mg tablet,delayed 81 mg PO DAILY 11/16/24 11/16/24 08:00 History release 81 mg cholecalciferol (vitamin D3) 75 75 mcg PO DAILY vit d deficiency 11/16/24 11/16/24 08:00 History mcg (3,000 unit) tablet 75 mcg ferrous sulfate 325 mg (65 mg 325 mg PO QODAY pregnanc y 11/16/24 11/16/24 08:00 History iron) tablet (FeroSul) 325 mg levothyroxine 200 mcg tablet 200 mcg PO DAILY hypothyr iodism 11/16/24 11/16/24 08:00 History 200 mcg vitamins with calcium 1 tab PO DAILY pregnanc y 11/16/24 11/16/24 08:00 History no.72-iron 27 mg-folic acid 1 mg 1 TAB tablet ( Vitamins Plus Low Iron) Allergy/AdvReac Type Severity Reaction Status Date / Time No Known Allergies Allergy Verified 11/16/24 23:02 Social History Smoking Status: Never smoker History Elective abortions Hx Para 0 Spontaneous abortions Hx # Term Pregnancies Ectopic pregnancies Hx # Pregnancies Multiple births # of living children NST FHR Rate Baby A Baseline: 140 Variability:: Moderate Accelerations:: 15 x 15 Decelerations:: None Uterine Activity:: Irregular Vital Signs Vital Signs Vital Signs: 11/16/24 23:04 11/16/24 23:04 11/16/24 23:04 Temperature Temperature Source Temporal Pulse Rate 87 Respiratory Rate Blood Pressure 129/73 H BP Systolic 129 BP Diastolic 73 Pulse Ox 11/16/24 23:04 11/16/24 23:04 11/16/24 23:04 Temperature 98.1 F Temperature Source Pulse Rate Respiratory Rate 18 Blood Pressure BP Systolic BP Diastolic Pulse Ox 98 11/17/24 04:32 11/17/24 04:32 11/17/24 04:32 Temperature Temperature Source Temporal Pulse Rate 89 Respiratory Rate Blood Pressure 132/79 H BP Systolic 132 BP Diastolic 79 Pulse Ox 11/17/24 04:32 11/17/24 04:32 11/17/24 04:33 Temperature 97.3 F L Temperature Source Pulse Rate 81 Respiratory Rate 16 Blood Pressure BP Systolic BP Diastolic Pulse Ox 11/17/24 04:33 Temperature Temperature Source Pulse Rate Respiratory Rate Blood Pressure BP Systolic BP Diastolic Pulse Ox 97 Weight Weight: 274 lb 4.081 oz Body Mass Index (BMI) 47.0 Physical Exam Const alert, oriented x3 and no apparent distress Chest inspection of chest normal GI soft to palpation, non-tender, non-distended and no masses Inspection: gravid external exam normal Narrative: cvx - 0/50/-3 Labs Labs Labs: Blood Type A NEGATIVE Antibody Screen Pending Hct 34.7 % (37-47) L Hgb 11.6 g/dL (12.0-15.0) L Syphilis Total Ab Nonreactive (Nonreactive) Assessment & Plan (1) Obesity affecting in third trimester: QUALIFIERS: Obesity type affecting : unspecified obesity Qualified Code(s): O99.213 - Obesity complicating , third trimester COMMENT: @ 39&3 (2) 39 weeks gestation of : PLAN: Plan Admit to L&D Induction - continue cytotec GBS positive - pcn in active labor Pain - epidurak as desired EFW - less than 4500g & patient with adequate pelvis Routine care
[2024-11-17] MEDS: Lactated Ringers 1,000 ML 50 ML IV ×2 (05:28→12:15)
--- NOTE | 2024-11-17 07:28 | PCM.PN.OB ---
Subjective Subjective Patient comfortable Objective Data Objective Data Vital Signs: Vital Signs Temp Pulse Resp BP Pulse Ox 97.3 F L 81 16 132/79 H 97 11/17/24 04:32 11/17/24 04:33 11/17/24 04:32 11/17/24 04:32 11/17/24 04:33 Weight: 274 lb 4.081 oz Body Mass Index (BMI) 47.0 Intake & Output: Intake and Output for Last 24 Hours 11/15/24 11/16/24 11/17/24 23:59 23:59 23:59 Intake Total 500 / 500 Balance 500 / 500 Lab / Micro Data 11/16/24 22:50 Labs: Laboratory Results - last 24 hr 11/16/24 22:50: WBC 10.8, RBC 4.00 L, Hgb 11.6 L, Hct 34.7 L, MCV 86.8, MCH 29.0, MCHC 33.4, RDW Std Deviation 44.8 H, RDW Coeff of Marych[place] 14.1, Plt Count 186, MPV 12.7 H, Immature Gran % (Auto) 0.600, Neut % (Auto) 68.3, Lymph % (Auto) 23.8, [place] % (Auto) 6.4, Eos % (Auto) 0.6, Baso % (Auto) 0.3, Absolute Neuts (auto) 7.4, Absolute Lymphs (auto) 2.56, Nucleated RBC % 0, Syphilis Total Ab Nonreactive, Blood Type A NEGATIVE, Antibody Screen NEGATIVE 11/16/24 23:50: Urine Opiates Screen NEGATIVE, U Buprenorphine Qual NEGATIVE, Ur Oxycodone Screen NEGATIVE, Urine Methadone Screen NEGATIVE, Urine Fentanyl Screen NEGATIVE, Ur Barbiturates Screen NEGATIVE, Ur Phencyclidine Scrn NEGATIVE, Ur Amphetamines Screen NEGATIVE, U Benzodiazepines Scrn NEGATIVE, Urine Cocaine Screen NEGATIVE, U Cannabinoids Screen NEGATIVE Physical Exam Narrative: cvx - 1.5/60/-3, intracervical esparza placed NST FHR Rate Baby A Baseline: 135 Variability:: Moderate Accelerations:: 15 x 15 Decelerations:: Variable Uterine Activity:: Irregular Assessment & Plan (1) Obesity affecting in third trimester: QUALIFIERS: Obesity type affecting : unspecified obesity Qualified Code(s): O99.213 - Obesity complicating , third trimester COMMENT: @ 39&3 (2) 39 weeks gestation of : PLAN: Plan Continue induction and start pitocin when able
[2024-11-17] MEDS: Penicillin G Pot 5,000,000 UNITS in 0.9% Normal Saline (100mL MB+) 100 ML 150 UNITS IV (08:05)
[2024-11-17] MEDS: Oxytocin 15 Units/NS 250ml 15 UNITS/250 ML IV.SOLN 2 UNITS IV (10:36)
[2024-11-17] MEDS: Penicillin G 3,000,000 Units 50 ML 100 UNITS IV ×3 (12:13→20:07)
[2024-11-17] MEDS: fentaNYL 100 MCG/2 ML Ampul IV (12:24)
[2024-11-17] MEDS: Lactated Ringers 1,000 ML 999 ML IV (14:59)
[2024-11-17] MEDS: Lactated Ringers 1,000 ML 200 ML IV ×2 (15:55→21:21)
[2024-11-17] MEDS: fentaNYL-bupivacaine (epidural) 100 ML BAG EPIDURAL ×2 (15:57→20:42)
[2024-11-17] MEDS: Amnioinfusion- 0.9% NS 1,000 ML IV.SOLN. 999 ML INTRA-UTER (22:22)
[2024-11-17] MEDS: Oxytocin 15 Units/NS 250ml 15 UNITS/250 ML IV.SOLN 334 UNITS IV (23:36)
--- NOTE | 2024-11-17 23:57 | OB.VAGDELI_ITS ---
Maternal Data Information GASPER Calculator Estimated Delivery Date Method Current WG Current Estimate 11/21/24 Manual 39w 4d Vaginal Delivery Maternal Presentation Maternal Presentation: Medically Indicated Induction Type of Induction: Pitocin, Amniotomy and Cytotec Vaginal Delivery Information Procedure Performed: Spontaneous Vaginal Delivery Surgeon/Practitioner: Rolando Asencio Date of Procedure: 11/17/24 Pre-Procedure Diagnosis: Maternal obesity Post-Procedure Diagnosis: Same Type of anesthesia: Epidural Estimated Blood Loss: 200ml Findings Description of procedure: Called to room when patient C/C/+2. She was draped. Patient pushed well to deliver the head. head was gently guided and no release of anterior shoulder. Shoulder dystocia recognized and called for Dinorah. head gently guided and again no release of anterior shoulder. No excess traction placed on the head. Alejo maneuver performed with no release of anterior shoulder. Suprapubic pressure performed and anterior shoulder released. Patient then pushed while anterior shoulder delivered with gentle traction on th e head. The posterior shoulder & body easily delivered. Again no excess traction placed on the head. The body delivered. 3VC clamped and cut immediately. Placenta delivered with gentle traction and good uterine tone obtained. Presentation: POLINA Amniotic Membrane Rupture Type: Artificial Amniotic Fluid Description: Clear Placental Delivery Description: Expressed Placenta Disposition: [facility] Specimen collected: No Cord Vessel Description: 3 Vessels Cord Entanglement: None A Gender: Male (1 minute): 2 (5 minute): 7 Delayed Cord Clamping: No Strap Machine Operator clerk general office: No Post Vaginal Deli Medications given after delivery: IV Pitocin Episiotomy Description: None Laceration: 1st degree (right vaginal - repaired with 3-0 vicryl) Complication Complications: No
[2024-11-18] VITALS (41 sets, daily range): BP systolic 105–132; BP diastolic 55–82; PULSE 80–124; RESP 15–18; TEMP 36.2–36.7; O2SAT 79–99
[2024-11-18] MEDS: Oxytocin 15 Units/NS 250ml 15 UNITS/250 ML IV.SOLN 83 UNITS IV (00:24)
[2024-11-18] MEDS: Rho(D) Immune Globulin 300 MCG (1500 Unit) Syringe IV (06:10)
[2024-11-18] MEDS: 0.9% Saline Lock 10 ML Syringe IV (06:12)
--- NOTE | 2024-11-18 10:48 | PCM.PN.OB ---
Subjective Subjective Denies complaints Objective Data Objective Data Vital Signs: Vital Signs Temp Pulse Resp BP Pulse Ox O2 Del Method 98.0 F 102 H 18 122/71 H 97 Room Air 11/18/24 08:00 11/18/24 08:00 11/18/24 08:00 11/18/24 08:00 11/18/24 08:00 11/18/24 08:00 Oxygen Delivery Method Room Air Weight: 274 lb 4.081 oz Body Mass Index (BMI) 47.0 Intake & Output: Intake and Output for Last 24 Hours 11/16/24 11/17/24 11/18/24 23:59 23:59 23:59 Intake Total 3938.94 / 3938.94 1103.33 / 1103.33 Output Total 1850 / 1850 1500 / 1500 Balance 2088.94 / 2088.94 -396.67 / -396.67 Lab / Micro Data 11/16/24 22:50 Labs: Laboratory Results - last 24 hr 11/18/24 04:14: Screen n, Baby's Blood Type O POSITIVE, Baby's MONIQUE NEGATIVE Physical Exam Const alert, oriented x3 and no apparent distress HEENT normocephalic GI soft to palpation, non-tender and non-distended GI Narrative: fundus firm, mid & below umbilicus Extremity normal to inspection and no calf tenderness Assessment & Plan (1) Vaginal delivery: COMMENT: PPD#1 PLAN: Plan Routine care
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
[2024-11-18] MEDS: MENTHOL TOPICAL (16:43)
[2024-11-18] MEDS: BENZOCAINE TOPICAL (16:43)
--- NOTE | 2024-11-18 20:24 | CASEMGMT ---
Social Work Mold Closer made phone contact with [facility] and spoke with Destinee. Mold Closer made a referral per mandate due to MOB smoking marijuana during . Bushra Bermeo, INTERNET CONSULTANT, SR. MANAGER MARKETING
[2024-11-19 05:50] VITALS: BP 128/67; PULSE 75; O2SAT 91
[2024-11-19 06:00] VITALS: BP 128/67; PULSE 78; RESP 18; TEMP 36.4; O2SAT 98
[2024-11-19 07:40] VITALS: BP 113/65; PULSE 80
[2024-11-19 07:43] VITALS: RESP 16; TEMP 36.2
--- NOTE | 2024-11-19 08:48 | PCM.PN.OB ---
Subjective Subjective Doing well per patient and nursing staff. Ambulating and taking PO without difficulty. Voiding and passing flatus. Pain controlled. , services for assistance. Denies headache, visual changes, chest pain, shortness of breath, leg pain or increased bleeding. Lochia normal. Objective Data Objective Data Vital Signs: Vital Signs Temp Pulse Resp BP Pulse Ox O2 Del Method 97.2 F L 80 16 113/65 98 Room Air 11/19/24 07:43 11/19/24 07:40 11/19/24 07:43 11/19/24 07:40 11/19/24 06:00 11/19/24 07:43 Oxygen Delivery Method Room Air Weight: 274 lb 4.081 oz Body Mass Index (BMI) 47.0 Intake & Output: Intake and Output for Last 24 Hours 11/17/24 11/18/24 11/19/24 23:59 23:59 23:59 Intake Total 3938.94 / 3938.94 1103.33 / 1103.33 Output Total 1850 / 1850 1500 / 1500 Balance 2088.94 / 2088.94 -396.67 / -396.67 Lab / Micro Data 11/16/24 22:50 ROS Constitutional Constitutional: Reports systems reviewed and no addt'l complaints, except as documented; Denies headache(s) Eyes Eyes: Denies acute decrease in peripheral vision, blurry vision or change in vision ENT HEENT: Reports systems reviewed and no addt'l complaints, except as documented Cardiovascular Cardiovascular: Denies chest pain or dizziness Respiratory/Chest Respiratory/Chest: Denies cough, dyspnea, dyspnea on exertion, shortness of breath at rest or shortness of breath with exertion Gastrointestinal Gastrointestinal: Denies abdominal pain, diarrhea, nausea or vomiting Genitourinary Genitourinary: Denies abdominal discomfort Musculoskeletal Musculoskeletal: Denies limited range of motion Integumentary Integumentary: Reports systems reviewed and no addt'l complaints, except as documented Neurologic Neurologic: Reports systems reviewed and no addt'l complaints, except as documented Psychiatric Psychiatric: Reports systems reviewed and no addt'l complaints, except as documented Endocrine Endocrinology: Reports systems reviewed and no addt'l complaints, except as documented Hematologic/Lymphatic Hematologic/Lymphatic: Reports systems reviewed and no addt'l complaints, except as documented Allergic/Immunologic Allergic/Immunologic: Reports systems reviewed and no addt'l complaints, except as documented Physical Exam Const alert and oriented x3 General Appearance: cooperative Orientation / Consciousness: awake, oriented to person, oriented to place and oriented to time Exam Limitations: no limitations HEENT normocephalic Head and Scalp: normal to inspection, normocephalic and atraumatic Face and Sinus: normal facial exam Eyes General Eye: normal appearance of both eyes Neck full ROM Chest Chest: symmetrical chest wall rise Resp normal respiratory effort and normal air movement Auscultation: clear to auscultation bilaterally Cardio regular rate, regular rhythm, S1 normal heart sound, S2 normal heart sound, no murmurs, no rub, no gallops and no clicks GI normal to inspection, nondistended, normoactive bowel sounds and non-tender GI Narrative: Fundus firm 2 below U appearance of the vagina normal Narrative: Normal lochia rubra Bladder / Kidney Exam: no CVA tenderness Back/Spine normal ROM Extremity normal to inspection and full ROM Skin no rashes or lesions noted Neuro oriented x3, CN's II-XII intact bilaterally and moves all extremities Sensorium / Orientation: awake, alert and oriented to person Motor Exam: clonus absent Deep Tendon Reflexes: Rt Patellar (L4): 2+ and Lt Patellar (L4): 2+ Assessment & Plan (1) Vaginal delivery: COMMENT: PPD#2 PLAN: Plan 1) Routine care, PPD #2 2) Vitals signs stable 3) Pain controlled 4) , services PRN 5) D/C home 6) Follow up in 2 weeks and 6 weeks
--- NOTE | 2024-11-19 08:49 | PCM.DC.SUM ---
Providers Date of Admission: 11/16/24 Primary Care Physician: Dr. Rhea Jose MD Reason For Visit: VAG Diagnosis Discharge Diagnosis (1) Vaginal delivery: Status: Acute Code(s): O80 - Encounter for full-term uncomplicated delivery Plan 1) Routine care, PPD #2 2) Vitals signs stable 3) Pain controlled 4) , services PRN 5) D/C home 6) Follow up in 2 weeks and 6 weeks Medications at Discharge Home Medications levothyroxine 200 mcg tablet 200 mcg PO DAILY hypothyriodism 11/16/24 vitamins with calcium no.72-iron 27 mg-folic acid 1 mg tablet ( Vitamins Plus Low Iron) 1 tab PO DAILY 11/16/24 acetaminophen 500 mg tablet 1,000 mg (2 x 500 mg) PO Q6H PRN PRN Pain 1-10 Or Fever #0 tabs 11/19/24 ibuprofen 600 mg tablet 600 mg PO Q6H PRN PRN Pain Score 1-10 #0 tabs 11/19/24 Hospital Course Summary of Care Provided Minutes Spent on Discharge: 15 Weight / BMI Weight Weight: 274 lb 4.081 oz Body Mass Index (BMI) 47.0 ABG / Lab / Microbiology Data 11/16/24 22:50 D/C Instructions Discharge Activity: Return to Normal Activity, May Drive, May Shower and May Take a Tub Bath May resume sexual activity in: 6 weeks Weight Bearing Status: Full weight bearing Call your doctor if you observe: Fever of 101 or Higher, Inability to urinate, Using more than 1 pad per hour, Shortness of breath, Chest pain, Increased palpitations (irregular heartbeat), Calf discomfort and Uncontrolled pain DC O2, CPAP, BIPAP Needs Home O2 Discharge instructions: No Please Follow Up With: Natasha Gavin CNM When: 2 week virtual visit and 6 week visit Meaningful Use Info Meaningful Use Meaningful Use Diagnoses (Choose all that apply): None applicable Discharge Plan Admission Admit Date/Time: 11/16/24 22:26 Primary Reason for Your Visit: Vaginal Delivery Attending Provider: Rolando Asencio Primary Care Provider: Rhea Jose Discharge Orders/Prescriptions Prescriptions: New acetaminophen 500 mg Tablet 1,000 mg PO Q6H PRN PRN (Reason: Pain 1-10 Or Fever) Qty: 0 0RF ibuprofen 600 mg Tablet 600 mg PO Q6H PRN PRN (Reason: Pain Score 1-10) Qty: 0 0RF Continued levothyroxine 200 mcg tablet 200 mcg PO DAILY Vitamin Plus Low Iron 27 mg iron- 1 mg tablet 1 tab PO DAILY Discontinued cholecalciferol (vitamin D3) 75 mcg (3,000 unit) tablet 75 mcg PO DAILY aspirin 81 mg tablet,delayed release (DR/EC) 81 mg PO DAILY ferrous sulfate [FeroSul] 325 mg (65 mg iron) tablet 325 mg PO QODAY ascorbic acid (vitamin C) [Vitamin C] 500 mg tablet 500 mg PO QODAY Referrals / Follow Up: Rhea Jose MD [Primary Care Provider] - Disposition Disposition (needs filled in before D/C Order can be placed): Home, Self Care
[2024-11-19 13:01] VITALS: BP 140/82; PULSE 96; RESP 16; TEMP 36.1
--- NOTE | 2024-12-08 20:29 | CASEMGMT ---
Social Work chisel worker received a written correspondence from [facility] indicating that the referral that was made by this school social worker was not accepted for assessment/investigation. Bushra Bermeo, FAMILY WORKER, SENIOR DENTIST
== END 2024-11-19 17:00 | disposition home or self-care (01) | DRG 560 ==
PROVIDERS: Admitting Provider Obstetrics & Gynecology; Visit Provider Obstetrics & Gynecology
DX: O99.214 Obesity complicating childbirth (principal); Z37.0 Single live birth; O98.82 Other maternal infectious and parasitic diseases complicating childbirth; E03.9 Hypothyroidism, unspecified; E28.2 Polycystic ovarian syndrome; B95.1 Streptococcus, group B, as the cause of diseases classified elsewhere; O77.0 Labor and delivery complicated by meconium in amniotic fluid; O99.284 Endocrine, nutritional and metabolic diseases complicating childbirth; O70.0 First degree perineal laceration during delivery; O66.0 Obstructed labor due to shoulder dystocia; Z79.890 Hormone replacement therapy; Z3A.39 39 weeks gestation of pregnancy; Z79.82 Long term (current) use of aspirin
CPT/HCPCS: 59025; 59050; 80307; 85025; 85461; 86780; 86850; 86900; 86901; 90384; 99221; A4216; G0378; J2790; J2791